=== PATIENT | male | born 1955 | race Caucasian/White ===

== ENCOUNTER 2020-05-18 13:01 | Outpatient (CLI) | payer MEDICAID ==
--- NOTE | 2020-05-18 13:52 | SLEEP CARE CONSULTATION ---
Information from patient questionnaire entered by Francois Larios. I have reviewed and concur with the information entered by Francois Larios. This document represents the service I personally performed and the decisions made by me, Kyung Rodriguez ARNP. History of Present Illness Service Date and Time: 05/18/2020 1301 Reason for Visit: New patient Chief Complaint: reports: Unrefreshed sleep, Snoring, Observed pauses in breathing, Fatigue, Frequent awakenings at night. denies: Insomnia, Excessive daytime sleepiness Date of Onset: 40 years? Usual bedtime: midnight Time it takes to fall asleep: Hours Snores at night: No (Not sure - previously, yes) Observed to quit breathing while asleep: Yes Number of times waking at night: 6-7 Reasons for waking at night: reports: Gasping for air (occasionally), Bathroom. 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 His current complaints are snoring, observed pauses in breathing, unrefreshed sleep and fatigue. About 19 years ago he did have a sleep study and found to have sleep apnea. He was placed on machine but could not tolerate this due to his claustrophobia and other issues. He states it was done at the [facility]. He comes back in to see if he still has sleep apnea and to see if he could use an oral appliance. He has been training himself to hold is tongue to the back of his upper front teeth to keep his palate from falling back to obstruct airway. This has worked well for him but he thinks an oral device would help even more. - Parasomnia Symptoms Ever been unable to move upon waking from sleep: No Walks in sleep: Yes (when very young) Talks in sleep: No Ever acted out dreams in sleep: No Ever felt weak in the knees when startled or emotional: No Bothered by creepy, crawly, restless sensations in legs: No Problems with memory or concentration: No Subjective Initial [place] Sleepiness Scale score: 4 (in 2020) Past Medical History Past Medical History: reports: Diabetes, Depression (occasional, mild depression), GERD (used to, now diet controlled ). 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 Patient is Single and lives in [place]. Have you smoked in the past 12 months: No Alcohol use: No Caffeine use: Yes Caffeine amount and frequency: cup in morn Family History Family history of sleep disordered breathing: Yes Family Hx Sleep Apnea: Father: Snoring, Sibling: Snoring, Sleep apnea - Untreated Allergies and Home Medications Drug allergies reviewed: Yes (NKDA) Home medication list reviewed: Yes Allergy and home medication list: Metformin vitamins melatonin, prn Review of Systems Weight loss over past 5 years: 40 Cardiovascular: denies: high blood pressure, irregular heart rate or pulse Respiratory: reports: chronic cough (dry throat) Gastrointestinal: reports: diarrhea. denies: heartburn Urinary: reports: frequency Neurological: denies: headaches, head trauma Psychiatric: reports: depression (mild), claustrophobia. denies: anxiety, mood disorder Ear/Nose/Throat: reports: nasal congestion, dry mouth/throat (in mornings if sleep with mouth open), wisdom teeth removed. denies: tonsillectomy Immunologic: reports: allergies to food or environment (seasonal allergies, hayfever) Physical Exam Blood Pressure: 123/86 Cuff size: wrist Heart Rate: 95 O2 Saturation: 98 Height: 6 ft Weight: 205 lb Body Mass Index: 27.8 BMI Classification: Overweight Neck circumference: 17 (inches) Nostrils: patent to airflow Turbinates: swollen Septum: midline Mouth and throat: narrow oropharynx Hard palate: arched Uvula visualization: 25% Mallampati Class III Tongue: enlarged in size with teeth arroyo on lateral edges Tonsils: 2+ Heart: regular rate and rhythm Lungs: clear bilaterally Impression and Plan 1. Suspected Obstructive Sleep Apnea-Hypopnea Syndrome, as suggested by a history of loud and irregular snoring, observed cessation of breath while asleep, gasping or choking in sleep, frequent awakening during the night, and unrefreshed sleep. He has a history of previous diagnosis of sleep apnea. I reviewed with patient that to get an oral appliance we will need to verify diagnosis and severity. I recommend proceeding to polysomnography to confirm the diagnosis and to assess severity. The pathophysiology of obstructive sleep apnea-hypopnea syndrome was discussed with the patient and health risks of cardiovascular and cerebrovascular disease if not treated. AAS brochure for obstructive sleep apnea-hypopnea syndrome given and reviewed. Risks of drowsy driving discussed in detail and patient advised to avoid long distance driving and to nail puller at the first sign of drowsiness. Patient agreed to plan. * Schedule polysomnography +- manual CPAP titration study and return in 1-2 weeks after the study to discuss result and initiate therapy. * Avoid long distance driving or driving when feeling sleepy. * Avoid alcohol, sedative and muscle relaxant around bedtime. * Attempt to lose weight. * Review instructions provided by trained office staff on how to prepare for the sleep study. * Return for follow-up after sleep study completed. Counseling Topics: Weight loss health impact Visit Type: In Office Time Spent with Patient (minutes): 32 Provider Statement: I spent 100% of the Face to Face Visit with the patient with greater than 50% spent counseling the patient and coordination of care.
[2020-05-18 13:53] VITALS: BP 123/86
== END 2020-05-18 13:02 | disposition home or self-care (01) ==
LOC: SC 13:01
PROVIDERS: ATTEND Nurse Practitioner Family
DX: R06.81 Apnea, not elsewhere classified (principal); G47.8 Other sleep disorders; R06.83 Snoring; E66.3 Overweight; Z68.27 Body mass index [BMI] 27.0-27.9, adult
CPT/HCPCS: 99203; 99212

== ENCOUNTER 2020-05-31 10:58 | Outpatient (CLI) | payer MEDICAID ==
[2020-05-31 15:39] LABS: BASOPHILS % (AUTO) 0.3 %; EOSINOPHILS % (AUTO) 0.5 %; HGB - HEMOGLOBIN 15.9 g/dL (14.0-18.0); LYMPHOCYTES # (AUTO) 1.2 10^3/uL (1.5-3.5); MEAN CORPUSCULAR HEMOGLOBIN 29.4 pg (27.0-31.0); MEAN CORPUSCULAR HGB CONC 32.8 g/dL (32.0-36.0); MEAN CORPUSCULAR VOLUME 89.6 fL (80.0-94.0); MEAN PLATELET VOLUME 10.1 fL (7.4-11.4); MONOCYTES # (AUTO) 0.5 10^3/uL (0.0-1.0); MONOCYTES % (AUTO) 8.3 %; NEUTROPHILS # (AUTO) 4.3 10^3/uL (1.5-6.6); NEUTROPHILS % (AUTO) 70.6 %; PLT - PLATELET COUNT 241 10^3/uL (130-450); RED BLOOD COUNT 5.41 10^6/uL (4.70-6.10); RED CELL DISTRIBUTION WIDTH 13.9 % (12.0-15.0); WHITE BLOOD COUNT 6.1 x10^3/uL (4.8-10.8)
[2020-05-31 16:39] LABS: CREATININE,URINE 110.8 mg/dL; MICROALBUM/CREATININE RATIO,UR 16.2 ug/mg (<30.0); MICROALBUMIN,URINE 1.8 mg/dL (0-300.0)
[2020-05-31 16:48] LABS: ALBUMIN 4.4 g/dL (3.2-5.5); ALBUMIN/GLOBULIN RATIO 1.6 (1.0-2.2); ALKALINE PHOSPHATASE 59 IU/L (42-121); ALT ALANINE AMINOTRANSFERASE 17 IU/L (10-60); AST ASPARTATE AMINOTRANSFERASE 18 IU/L (10-42); BILIRUBIN,TOTAL 0.9 mg/dL (0.2-1.0); BUN - BLOOD UREA NITROGEN 13 mg/dL (6-20); CALCIUM 9.4 mg/dL (8.5-10.3); CARBON DIOXIDE - CO2 24 mmol/L (21-32); CHLORIDE 104 mmol/L (101-111); CHOL/HDL RATIO 3.6 (<5.0); CHOLESTEROL 205 mg/dL; CREATININE 0.7 mg/dL (0.6-1.2); GLUCOSE 124 mg/dL (70-100); HDL CHOLESTEROL 57 mg/dL; LDL CHOLESTEROL,CALCULATED 134 mg/dL; LDL/HDL RATIO 2.4 (<3.6); SODIUM 137 mmol/L (135-145); TOTAL PROTEIN 7.1 g/dL (6.7-8.2); VLDL CHOLESTEROL 14 mg/dL
[2020-05-31 20:33] LABS: HEMOGLOBIN A1c% 6.2 % (4.27-6.07)
[2020-06-01 11:48] LABS: HEPATITIS C ANTIBODY NON-REACTIVE (NON-REACTIVE)
== END 2020-05-31 10:59 | disposition home or self-care (01) ==
LOC: LAB.S 10:58
PROVIDERS: ATTEND Registered Nurse
DX: Z01.84 Encounter for antibody response examination (principal); E11.9 Type 2 diabetes mellitus without complications; F41.8 Other specified anxiety disorders; I10 Essential (primary) hypertension
CPT/HCPCS: 36415; 80053; 80061; 82043; 82570; 83036; 83721; 84153; 84443; 85025; 86803

== ENCOUNTER 2020-06-11 07:14 | Outpatient (CLI) | payer MEDICAID ==
--- NOTE | 2020-06-11 09:02 | Ultrasound Report ---
PROCEDURE: Retroperitoneal INDICATIONS: HX OF KIDNEY DISEASE TECHNIQUE: Real-time scanning was performed of the retroperitoneal organs, with image documentation. COMPARISON: None. FINDINGS: Kidneys: Kidneys are normal in size. Right kidney measures 12.9 cm long; left kidney measures 12.2 cm long. Right renal cortical thickness is 1.5 cm; left renal cortical thickness is 2.0 cm. Multipl e bilateral renal cortical and parapelvic cysts are noted measuring up to centimeter on the right and 5.6 cm on the left. Bilateral nephrolithiasis also seen measuring up to 1.0 cm on right and up to 0. 5 cm on the left. Mild right hydronephrosis. IMPRESSION: Nonobstructive bilateral renal calculi Numerous bilateral cortical and parapelvic cysts. Mild right hydronephrosis. Reviewed by: Santos Minor MD on 06/11/2020 9:00 AM PST Approved by: Santos Minor MD on 06/11/2020 9:00 AM PST Station ID: [id number]
== END 2020-06-11 07:15 | disposition home or self-care (01) ==
LOC: DI 07:14
PROVIDERS: ATTEND Registered Nurse
DX: N13.2 Hydronephrosis with renal and ureteral calculous obstruction (principal); N28.1 Cyst of kidney, acquired

== ENCOUNTER 2020-06-17 12:14 | Outpatient (CLI) | payer MEDICAID ==
[2020-06-17 15:15] LABS: BILIRUBIN,URINE NEGATIVE (NEGATIVE); GLUCOSE, URINE (UA) NEGATIVE (NEGATIVE); KETONES,URINE (UA) NEGATIVE (NEGATIVE); LEUKOCYTE ESTERASE, URINE NEGATIVE (NEGATIVE); NITRITE,URINE NEGATIVE (NEGATIVE); OCCULT BLOOD,URINE NEGATIVE (NEGATIVE); PROTEIN,URINE NEGATIVE (NEGATIVE); UROBILINOGEN,URINE 0.2 (NORMAL) E.U./dL (NORMAL)
[2020-06-17 15:25] LABS: AMORPHOUS SEDIMENT,UR Rare /LPF; BACTERIA,URINE None Seen /HPF (None Seen); CLARITY,URINE CLEAR (CLEAR); MUCUS,URINE Few Strands; RBC,URINE None Seen /HPF (0-5); SQUAMOUS EPITHELIAL CELL,UR NONE SEEN (<= Few)
[2020-06-17 15:39] LABS: AMYLASE 53 U/L (28-100); LIPASE 38 U/L (22-51)
== END 2020-06-17 12:15 | disposition home or self-care (01) ==
LOC: LAB.S 12:14
PROVIDERS: ATTEND Registered Nurse
DX: R11.0 Nausea (principal); N13.30 Unspecified hydronephrosis; R10.84 Generalized abdominal pain
CPT/HCPCS: 36415; 81001; 82150; 83690; 87086

== ENCOUNTER 2020-07-01 09:24 | Outpatient (CLI) | payer MEDICAID ==
[2020-07-01 15:14] LABS: CREATININE 0.7 mg/dL (0.6-1.2)
== END 2020-07-01 09:25 | disposition home or self-care (01) ==
LOC: LAB.S 09:24
PROVIDERS: ATTEND Registered Nurse
DX: N13.30 Unspecified hydronephrosis (principal)
CPT/HCPCS: 36415; 80048

== ENCOUNTER 2020-12-17 19:41 | Outpatient (CLI) | payer MEDICAID | END 2020-12-17 19:42 | disposition home or self-care (01) | LOC: SC 19:41 | PROVIDERS: ATTEND Nurse Practitioner Family | DX: G47.33 Obstructive sleep apnea (adult) (pediatric) (principal); Z68.27 Body mass index [BMI] 27.0-27.9, adult | CPT/HCPCS: 95810 ==

== ENCOUNTER 2021-01-05 11:24 | Outpatient (CLI) | payer MEDICAID ==
--- NOTE | 2021-01-05 12:13 | SLEEP CARE CONSULTATION ---
Information from patient questionnaire entered by Elvira Sanchez. I have reviewed and concur with the information entered by Elvira Sanchez. This document represents the service I personally performed and the decisions made by , Kyung Rodriguez ARNP. History of Present Illness Service Date and Time: 01/05/[address] Sleepiness Scale score: 4 (in 2020) Current [place] [address] Sleepiness Scale score: 5 Additional HPI information: STEW SPICER returns for follow up and results of the recently performed polysomnography. I explained the pathophysiology behind obstructive sleep apnea. We then spent quite a bit of time discussing different treatment options. For mild obstructive sleep apnea, surgery and oral appliance are alternatives to nasal CPAP therapy but in moderate or severe cases, nasal CPAP is the most effective and reliable treatment. Because apnea is primarily in supine position, then positional management therapy could be effective. Methods discussed such as positioning with pillows, using a T-shirt with tennis balls in the back, and shown commercial products that have a pillow format on back to prevent supine sleep. I reviewed the impact of weight changes on sleep apnea and strongly recommended losing weight. Patient counseled not drink alcohol less than 4 hours before bedtime as it can increase snoring and apnea. Patient was cautioned about risks of drowsy driving until sleepiness symptoms resolve. Sleep Study - Results Type of Sleep Study: Polysomnography Prior sleep studies: Yes Year and Where: Around 1999 at in [place] Polysomnography/Home Sleep Study results: IMPRESSION: The quality of the study is good. The patient had reduced sleep efficiency due to several prolonged awakenings during the night. The sleep architecture was abnormal for sleep fragmentation but the sleep stage distribution was relatively normal.. Respiratory monitoring showed mild obstructive sleep apnea-hypopnea (AHI = 7.6) associated with frequent arousals, oxyhemoglobin desaturation and mild hypoxia (desmond oxygen saturation of 86%). The respiratory events occurred almost exclusively during supine sleep (supine AHI = 84.4; non-supine = 3.24). Snore was light to moderate in intensity. There was no significant periodic leg movement of sleep. Cardiac rhythm was normal sinus rhythm without significant arrhythmia. No abnormal behavior (parasomnia) observed during the night. Allergies and Home Medications Home medication list reviewed: Yes (no changes) Review of Systems Review of systems same as previous: Yes (no changes) Physical Exam Heart Rate: 92 O2 Saturation: 98 Height: 6 ft Weight: 204 lb Body Mass Index: 27.6 BMI Classification: Overweight Impression and Plan 1. Obstructive Sleep Apnea-Hypopnea Syndrome, mild, with lowest oxygen saturation of 86%. Obviously this is the cause of the patients symptoms of unrefreshed sleep, and excessive daytime sleepiness. Positive pressure therapy could benefit depression, diabetes and gastric reflux. Patient has lost some weight since his last study. Patient states he sleeps with his tongue against his teeth to reduce apneas and cannot sleep on his back because he starts choking. He normally sleeps on his sides and dreams a lot at night. He feels weary in the morning from dreaming so much. Since patients apnea is primarily in supine position, patient advised to try positional therapy and agreed with plan. He is also advised to lose weight as this will reduce snoring and apnea. An oral appliance can also be used for snoring or sleep apnea but often is not covered by insurance. The patient would also like to explore using an oral appliance to treat their apnea. A 3 month follow up will be made to see if appliance has reduced symptoms. If so, another polysomnography will be ordered with use of the oral appliance to check efficacy in reducing apnea. Until patient is able to use the oral appliance, positional therapy is advised to avoid supine sleep with pillow positioning or one of the commercial products because apnea is more severe supine. * Positional therapy until able to get oral appliance * Explore insurance coverage for Oral appliance * Continue to lose weight. * Avoid alcohol consumption near bedtime. * Avoid supine sleep. * The patient is again cautioned about driving until sleepiness completely resolves. * Return one month after oral appliance obtained to check effectiveness. Counseling Topics: Weight loss health impact Visit Type: In Office Time Spent with Patient (minutes): 27 Provider Statement: I spent 100% of the Face to Face Visit with the patient with greater than 50% spent counseling the patient and coordination of care.
== END 2021-01-05 11:25 | disposition home or self-care (01) ==
LOC: SC 11:24
PROVIDERS: ATTEND Nurse Practitioner Family
DX: G47.33 Obstructive sleep apnea (adult) (pediatric) (principal)
CPT/HCPCS: 99212; 99213

== ENCOUNTER 2021-07-06 07:58 | Outpatient (CLI) | payer MEDICARE, MEDICAID ==
[2021-07-06 15:08] LABS: BASOPHILS % (AUTO) 0.5 %; EOSINOPHILS # (AUTO) 0.1 10^3/uL (0.0-0.7); EOSINOPHILS % (AUTO) 2.1 %; HCT - HEMATOCRIT 50.2 % (42.0-52.0); HGB - HEMOGLOBIN 16.1 g/dL (14.0-18.0); LYMPHOCYTES # (AUTO) 1.5 10^3/uL (1.5-3.5); LYMPHOCYTES % (AUTO) 26.7 %; MEAN CORPUSCULAR HEMOGLOBIN 29.4 pg (27.0-31.0); MEAN CORPUSCULAR HGB CONC 32.1 g/dL (32.0-36.0); MEAN CORPUSCULAR VOLUME 91.8 fL (80.0-94.0); MEAN PLATELET VOLUME 10.2 fL (7.4-11.4); MONOCYTES # (AUTO) 0.4 10^3/uL (0.0-1.0); MONOCYTES % (AUTO) 7.7 %; NEUTROPHILS # (AUTO) 3.6 10^3/uL (1.5-6.6); NEUTROPHILS % (AUTO) 62.7 %; PLT - PLATELET COUNT 239 10^3/uL (130-450); RED BLOOD COUNT 5.47 10^6/uL (4.70-6.10); RED CELL DISTRIBUTION WIDTH 13.7 % (12.0-15.0); WHITE BLOOD COUNT 5.7 x10^3/uL (4.8-10.8)
[2021-07-06 15:34] LABS: ALBUMIN 4.1 g/dL (3.2-5.5); ALBUMIN/GLOBULIN RATIO 1.4 (1.0-2.2); ALKALINE PHOSPHATASE 58 IU/L (42-121); ALT ALANINE AMINOTRANSFERASE 18 IU/L (10-60); AST ASPARTATE AMINOTRANSFERASE 17 IU/L (10-42); BUN - BLOOD UREA NITROGEN 16 mg/dL (6-20); CALCIUM 8.6 mg/dL (8.5-10.3); CARBON DIOXIDE - CO2 26 mmol/L (21-32); CHLORIDE 102 mmol/L (101-111); CHOL/HDL RATIO 4.1 (<5.0); CHOLESTEROL 205 mg/dL; CREATININE 0.7 mg/dL (0.6-1.2); GFR - MDRD 113 (>89); GLUCOSE 128 mg/dL (70-100); HDL CHOLESTEROL 50 mg/dL; LDL CHOLESTEROL,CALCULATED 138 mg/dL; LDL/HDL RATIO 2.8 (<3.6); POTASSIUM 4.2 mmol/L (3.5-5.0); SODIUM 136 mmol/L (135-145); TRIGLYCERIDES 87 mg/dL; VLDL CHOLESTEROL 17 mg/dL
[2021-07-06 15:35] LABS: THYROID STIMULATING HORMONE 1.29 uIU/mL (0.34-5.60)
== END 2021-07-06 07:59 | disposition home or self-care (01) ==
LOC: LAB.S 07:58
PROVIDERS: ATTEND Registered Nurse
DX: I10 Essential (primary) hypertension (principal); E11.9 Type 2 diabetes mellitus without complications; Z87.448 Personal history of other diseases of urinary system; Z13.220 Encounter for screening for lipoid disorders; Z12.5 Encounter for screening for malignant neoplasm of prostate
CPT/HCPCS: 36415; 80053; 80061; 83721; 84153; 84443; 85025

== ENCOUNTER 2022-03-07 18:31 | Outpatient (CLI) | payer MEDICARE, MEDICAID ==
--- NOTE | 2022-03-08 13:58 | XRAY Report ---
PROCEDURE: Foot 2 View LT INDICATIONS: LEFT FOOT PAIN TECHNIQUE: 2 views of the foot were acquired. COMPARISON: None. FINDINGS: Bones: No fractures or dislocations. Mild left foot osteoarthritic changes are seen with joint spac e narrowing, subchondral sclerosis and marginal osteophyte formation more prominent at talonavicular joint and navicular cuneiform joints. No suspicious bony lesions. Soft tissues: No tibiotalar joint effusion. Achilles tendon appears normal. IMPRESSION: Mild left foot osteoarthritis. No fracture or dislocation. No gross soft tissue abnormalities. Reviewed by: Danilo Young MD on 03/08/2022 1:57 PM PDT Approved by: Danilo Young MD on 03/08/2022 1:57 PM PDT Station ID: [id number]
== END 2022-03-07 18:32 | disposition home or self-care (01) ==
LOC: DI.S 18:31
PROVIDERS: ATTEND Registered Nurse
DX: M19.072 Primary osteoarthritis, left ankle and foot (principal)

== ENCOUNTER 2022-03-16 11:05 | Outpatient (CLI) | payer MEDICARE, MEDICAID | END 2022-03-16 11:06 | disposition short-term general hospital (02) | LOC: EMS 11:05 | DX: S79.912A Unspecified injury of left hip, initial encounter (principal); S29.9XXA Unspecified injury of thorax, initial encounter; S49.92XA Unspecified injury of left shoulder and upper arm, initial encounter; S39.91XA Unspecified injury of abdomen, initial encounter; W11.XXXA Fall on and from ladder, initial encounter; Y92.008 Other place in unspecified non-institutional (private) residence as the place of occurrence of the external cause | CPT/HCPCS: A0425; A0427 ==

== ENCOUNTER 2022-03-30 10:46 | Outpatient (CLI) | payer MEDICARE, MEDICAID | END 2022-03-30 10:47 | disposition critical access hospital (66) | LOC: EMS 10:46 | DX: R10.32 Left lower quadrant pain (principal); R14.0 Abdominal distension (gaseous); R63.8 Other symptoms and signs concerning food and fluid intake; R00.0 Tachycardia, unspecified; Z91.81 History of falling | CPT/HCPCS: A0425; A0429 ==

== ENCOUNTER 2022-03-30 10:52 | Inpatient (IN) | payer MEDICARE, MEDICAID ==
[2022-03-30] MEDS ORDERED: SODIUM CHLORIDE 0.9% 1,000 ML IV STA ×2 (11:34→14:59)
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
[2022-03-30 12:13] LABS: BASOPHILS % (AUTO) 0.2 %; HCT - HEMATOCRIT 35.6 % (42.0-52.0); HGB - HEMOGLOBIN 11.6 g/dL (14.0-18.0); LYMPHOCYTES # (AUTO) 0.2 10^3/uL (1.5-3.5); LYMPHOCYTES % (AUTO) 1.4 %; MEAN CORPUSCULAR HEMOGLOBIN 29.1 pg (27.0-31.0); MEAN CORPUSCULAR HGB CONC 32.6 g/dL (32.0-36.0); MEAN CORPUSCULAR VOLUME 89.4 fL (80.0-94.0); MONOCYTES # (AUTO) 1.2 10^3/uL (0.0-1.0); MONOCYTES % (AUTO) 6.9 %; NEUTROPHILS # (AUTO) 15.7 10^3/uL (1.5-6.6); NEUTROPHILS % (AUTO) 90.1 %; PLT - PLATELET COUNT 385 10^3/uL (130-450); RED BLOOD COUNT 3.98 10^6/uL (4.70-6.10); RED CELL DISTRIBUTION WIDTH 15.9 % (12.0-15.0); WHITE BLOOD COUNT 17.4 x10^3/uL (4.8-10.8)
[2022-03-30 12:18] LABS: INR 1.6 (0.8-1.2); PT - PROTHROMBIN TIME 17.5 secs (9.9-12.6)
[2022-03-30 12:26] LABS: ALBUMIN 2.9 g/dL (3.2-5.5); ALBUMIN/GLOBULIN RATIO 0.8 (1.0-2.2); BILIRUBIN,TOTAL 1.2 mg/dL (0.2-1.0); CALCIUM 8.4 mg/dL (8.5-10.3); POTASSIUM 4.6 mmol/L (3.5-5.0); TOTAL PROTEIN 6.4 g/dL (6.7-8.2)
[2022-03-30 12:51] LABS: BILIRUBIN,URINE NEGATIVE (NEGATIVE); GLUCOSE, URINE (UA) 100 mg/dL (NEGATIVE); KETONES,URINE (UA) NEGATIVE (NEGATIVE); LEUKOCYTE ESTERASE, URINE MODERATE (NEGATIVE); NITRITE,URINE NEGATIVE (NEGATIVE); OCCULT BLOOD,URINE SMALL (NEGATIVE); PROTEIN,URINE 30 mg/dL (NEGATIVE); UROBILINOGEN,URINE 0.2 (NORMAL) E.U./dL (NORMAL)
[2022-03-30 12:54] LABS: CLARITY,URINE SL. CLOUDY (CLEAR)
[2022-03-30 13:05] LABS: BACTERIA,URINE Moderate /HPF (None Seen); SQUAMOUS EPITHELIAL CELL,UR RARE Squamous (<= Few); WBC,URINE >25 /HPF (0-3)
[2022-03-30] MEDS ORDERED: cefTRIAXone 1 GM in SODIUM CHLORIDE 0.9% MINIBAG 100 ML IV STA (13:05)
[2022-03-30] MEDS: SODIUM CHLORIDE 0.9% 1,000 ML IV SCH ×2 (15:00→20:25)
[2022-03-30] MEDS ORDERED: ACETAMINOPHEN 325 MG TABLET PO PRN (15:36)
[2022-03-30] MEDS ORDERED: SODIUM CHLORIDE FLUSH 0.9% 10 ML SYRINGE IVP PRN (15:36)
[2022-03-30] MEDS ORDERED: ONDANSETRON 4 MG/2 ML VIAL IVP PRN (15:36)
--- NOTE | 2022-03-30 15:39 | CONSULTATION NOTE ---
Surgery Consult - Admit Date Hospital Admission Date: 03/30/22 - Consult Date Consult Date: 03/30/22 Requesting Provider: Dr. Calhoun - Chief Complaint Chief Complaint: S/P Polytrauma - Home Meds/Allergies Home Medications: Patient History Medication Instructions Recorded Confirmed Metformin HCl [Metformin ER 1,000 mg PO BID 03/30/22 03/30/22 Osmotic] Allergies/Adverse Reactions: Allergies Allergy/AdvReac Type Severity Reaction Status Date / Time medazepam AdvReac Hallucinati Verified 03/30/22 11:13 ons - Vital Signs Vital Signs: Last Vital Signs Temp 99.1 F 03/30/22 11:19 Pulse 107 H 03/30/22 14:35 Resp 20 03/30/22 14:35 BP 117/83 H 03/30/22 14:35 Pulse Ox 95 03/30/22 14:35 O2 Flow Rate Intake & Output: Intake & Output 03/27/22 03/28/22 03/29/22 03/30/22 23:59 23:59 23:59 23:59 Intake Total 1100 Balance 1100 - Lab Results Result Diagrams: 03/30/22 11:58 03/30/22 11:58 - Consultation Note Consultation Note: Assessment: 1) Urosepsis 2) S/P 40 foot fall with polytrauma listed below - no unresolved issues 3) Sleep apnea 4) Dehydration with electrolyte imbalance 5) Recent pulmonary embolism Recommendation: 1) The patient will be admitted to the Medical hospitalist Service for management of his urosepsis, dehydration, diabetes, anticoagulation, PE, and delirium 2) PT consult should be obtained while he is at this facility regarding post-op mobility after his ORIF right femur 3) General Surgery will follow <><><><><><><><><><> Reason for Consultation Follow-up PolyTrauma Chief Complaint Left flank pain, confusion, shaking chills EULA Mina is a 66 year old male who was brought to our ED from [facility] for fevers, anorexia, fatigue, and shaking chills. He was admitted to [facility] following an 8 day hospitalization at [facility] after falling 40 feet to the ground off of a ladder propped against a tree. He sustained multiple injuries listed below and was discharged to [facility] for recuperation. Past Medical History Poly-Trauma 03/16/2022 Acute blood los anemia Grade 4 left kidney laceration with collecting system injury Left retroperitoneal hematoma Grade 2 splenic laceration Left hemopneumothorax treated with pigtail catheter Left lower lobe pulmonary laceration Fracture left 2,3,4,11 ribs Right intertrochanteric femur fracture, S/P ORIF Left scapula fracture Left iliac wing fracture Left elbow wound - clinically insignificant Delirium L2 Vertebral body fracture Fx C7, T-19, L2-L4 TP fractures Sub-massive PE Blunt cardiac injury DMT2 Sleep apnea Past Surgical History ORIF right femur Left pleural catheter insertion Social History Lives on [facility] Current Medications Apixaban 10 mg PO BID Colace 100 mg PO daily Cholecalciferol 25 mcg daily Insulin LISPRO 100u/ml sliding scale Melatonin 3 mg PO nightly MVI PO daily Ondansetron 4 mg PO Q 8 hrs prn Oxycodone 5 mg PO Q 4-6 hrs prn Miralax daily prn Acetaminophen 1,000 mg PO Q 6 hrs Metformin 500 mg PO BID Allergies Medazolam ROS Pertinent positives Fatigue, fever, chills, weakness All other reviewed systems negative Physical Examination Vital Signs: P 104; BP 166/81; RR 21; O2 sat 97% GENERAL APPEARANCE: Normal development, normal body habitus, normal grooming PSYCHIATRIC: AAO; Comfortable EYES: Pupils equil, round and reactive to light, sclera anicteric EARS, NOSE, MOUTH, THROAT: Hearing normal, Oral mucous membranes moist and without lesions; Teeth in good repair NECK: No crepitus, lymphadenopathy, or thyromegaly LUNGS: Clear to auscultation without wheezing; No use of accessory muscles to breathe CARDIOVASCULAR: Heart-NSR without murmurs; Palpable carotid arteries - no bruits; Aorta, Femoral, Pedal pulses palpable; Peripheral edema absent ABD: Soft, non-distended; No masses; No tympany; Active bowel sounds LYMPHATIC: Neck, Axillae, Groin no palpable adenopathy EXTREMITIES: Right lateral thigh surgical incision with sutures and steri- strips in place. No evidence of infection or drainage SKIN: Ecchymosis about left flank and left lower abdomen BACK: Tender over left scapula Labs UA - WBC > 25; Bacteria Moderate; URE Mod WBC 17.4; Hgb 11.6; Hct 35.6 INR 1.6 Na 129; K 4.6; BUN 21; Cr 1.0 Lac Acid 2.4; TP 6.4; Alb 2.9 Imaging None Vineet Fuentes MD General Surgery Service
--- NOTE | 2022-03-30 15:49 | HISTORY & PHYSICAL EXAMINATION ---
History of Present Illness - Admitted From Admitted From:: ED - History Obtained From History obtained from: ED provider - History of Present Illness HPI Comment/Other: This is a 66 y/o WM with Hx of DM, LARRY not on CPAP, who fell 40 feet off a ladder on 03/16/22 and sustained trauma to multiple organs, was air transferred to [facility] where he was hospitalized for 8 days. He had multiple rib fractures, apical pneumothorax, pulmonary laceration, L kidney bleed, retroperitoneal hematoma, splenic laceration, acute blood loss anemia, R femur fracture, L scapula fracture, L iliac fracture, L2 vertebral fracture, C7, T1-T9 and L2-L4 transverse process fractures, blunt cardiac trauma and pulmonary embolism, started on Eliquis. He needed chest tubes, 2 surgeries to the R femur. He was then ALh for rehab to [facility]. He has been admittedly "eating and drinking poorly" due to poor appetite. He was brought in by ambulance to our ER today because of confusion, weakness and hypotension. W/U today showed he has syst BP 89, HR 140 in sinus tach, WBC 17, L.A. 2.4, and abn U/A with many WBC and many bacteria and few sq cells. He was given 1L of crystalloids and BP has improved to 90-110, HR down to 110-120. He had blood cx and urine cx sent and was started on iv Ceftriaxone. He is being admitted to the Hospitalist service for treating urosepsis. We discussed his CODE BLUE wishes and he wants to be a Full Code. History - Past Medical History Cardiovascular: reports: Other (Blunt trauma to heart, 2 Echos were unremarkable at [facility]) Respiratory: reports: Sleep apnea, Other (Chest tubes for hemo-pneumothorax at [facility]) Neuro: reports: Other (Experienced delerium while at [facility]) Endocrine/Autoimmune: reports: Type 2 diabetes GI: reports: Other (splenic and kidney trauma and retroperitoneal hematoma from that trauma) : reports: Other (Kidney laceration) HEENT: reports: Other (Recent L eye surgery) Psych: reports: Other (Hallucinations while at [facility]) Musculoskeletal: reports: Other (Had abd wall and gluteal hematomas from his trauma) - Past Surgical History Ortho: reports: Hip replacement Other past surgical history: L eye surgery in 2021 - Family & Social History Family History: Mother: , Father: , Sister: Alive and Well, Brother: Alive and Well Family History Comment/Other: Hrmike is estranged from 2 brothers and 1 sister, 1 brother . He has no children. Living arrangement: At home Living Situation: Alone Social History Notes: Alcohol previously 1/wk, none since trauma on 03/16/22. Never smoked cigarettes. Used marijuana when was younger. - Substance History Use: Uses substance without health or social issues: NONE Meds/Allgy - Home Medications Home Medications: Ambulatory Orders Medication Instructions Recorded Confirmed Acetaminophen [Acetaminophen Extra 1,000 mg PO Q6H 03/30/22 03/30/22 Strength] Apixaban [Eliquis] 5 mg PO BID 03/30/22 03/30/22 Bisacodyl Supp [Dulcolax Supp] 10 mg RC PRN PRN 03/30/22 03/30/22 Bismuth Subsalicylate [[place] 30 ml PO PRN PRN 03/30/22 03/30/22 Bismuth] Carboxymethylcellulose Sodium 1 drops EACHEYE PRN PRN 03/30/22 03/30/22 [Refresh Tears] Cholecalciferol [Vitamin D3] 25 mcg PO DAILY 03/30/22 03/30/22 Insulin Lispro [Humalog] 0 units SQ TID 03/30/22 03/30/22 Multivitamin W/Minerals [Theragran 1 each PO DAILY 03/30/22 03/30/22 M] Oxycodone HCl 10 mg PO .Q4 TO 6 H PRN 03/30/22 03/30/22 QUEtiapine [SEROquel] 12.5 mg PO HS PRN 03/30/22 03/30/22 Senna [Senokot] 17.2 mg PO PRN PRN 03/30/22 03/30/22 Sodium Chloride [Saline Nasal 2 spray AILYN Q2H PRN 03/30/22 03/30/22 [place]] metFORMIN [Glucophage] 500 mg PO BIDWM 03/30/22 03/30/22 oxyCODONE [Roxicodone] 5 mg PO .Q4 TO 6H PRN PRN 03/30/22 03/30/22 polyethylene glycoL 3350 [Miralax] 17 gm PO BID 03/30/22 03/30/22 - Allergies Allergies/Adverse Reactions: Allergies Allergy/AdvReac Type Severity Reaction Status Date / Time medazepam AdvReac Hallucinati Verified 03/30/22 11:13 ons Review of Systems - Constitutional Constitutional: reports: Weakness, Poor appetite - Musculoskeletal Musculoskeletal: reports: Muscle pain, Back pain - Psychiatric Psychiatric: reports: Hallucinations (when on narcotics recently) - Hematologic/Lymphatic Hematologic/Lymphatic: reports: Anemia, Bruising - All Other Systems All Other Systems: reports: Reviewed and negative Exam - Vital Signs Reviewed Vital Signs: Yes Vital Signs: Vital Signs x48h Temp Pulse Resp BP Pulse Ox 03/30/22 14:35 107 H 20 117/83 H 95 03/30/22 11:19 37.3 C 143 H 18 106/58 L 96 03/30/22 11:07 37.1 C 140 H 20 93/72 100 - Physical Exam General Appearance: positive: No acute distress, Alert Eyes Bilateral: positive: Normal inspection, EOMI ENT: positive: ENT inspection nml, No signs of dehydration Neck: positive: Nml inspection, Thyroid nml, No JVD Respiratory: positive: No respiratory distress, Breath sounds nml Cardiovascular: positive: Regular rate & rhythm, No murmur Abdomen: positive: Non-tender, No distention Skin: positive: Warm, Dry Extremities: positive: No pedal edema Neurologic/Psychiatric: positive: Oriented x3, Motor nml Sepsis Event Note (H) - Evaluation Current Stage of Sepsis: Sepsis Possible source of Sepsis: positive: Genitourinary - Sepsis Criteria Sepsis Criteria: Recorded Heart Rate greater than 90 bpm, WBC count greater than 12,000 or less than 4000, SBP less than 90 mmHg, Metabolic: lactate > 2 mmol/L Conclusion/Plan - Problem List (1) Sepsis Conclusion/Plan: Will admit as Inpt to ICU, in case iv pressor support is needed for his hypo tension Continue aggressive crystalloid s iv for volume replacement and for low BP. Follow L.A. til improves. Continue iv antibx Await cx results (2) Urinary tract infection Conclusion/Plan: As in #1 Since no imaging was done through the ED, will order CT abdomen pelvis without contrast, to look for any pyelonephritis, hydronephrosis, since he had recent tr auma. Qualifiers: Urinary tract infection type: acute cystitis Hematuria presence: without hematuria Qualified Code(s): N30.00 - Acute cystitis without hematuria (3) Hyponatremia Conclusion/Plan: This is hypovolemic hyponatremia given the presentation. Continue with IV saline. Follow BMP every 8-12 hours. Plan is for 6 mEq for 12-hour correction or less to avoid complications. (4) DM type 2 (diabetes mellitus, type 2) Conclusion/Plan: Will order carb controlled diet, fingerstick checks, SSI coverage, hypoglycemia protocol. Hold any oral hypoglycemics like metformin if he is on these, due to TINA Check A1c with a.m. labs (5) Hx pulmonary embolism Conclusion/Plan: Continue the current dose of Eliquis which is 5 mg twice daily (plan through May 2022) (6) Hx of multiple trauma Conclusion/Plan: Will request Gen Surgery consult regarding outcomes and expected progression of his recent mult traumas, and for further rec. (7) LARRY (obstructive sleep apnea) Conclusion/Plan: As per Hx. He says he did not tolerate "old fashioned CPAP machines" thus doesnot use one, sleeps on his side or stomach - Lab Results Fish Bones: 03/31/22 04:25 03/31/22 04:25 - Other Other Results/Comments: Attestation: The patient is expected to be discharged or transferred to another facility within 96 hours: Yes.
--- NOTE | 2022-03-30 16:35 | CT Report ---
PROCEDURE: ABDOMEN/PELVIS WO INDICATIONS: UTI after multiple trauma TECHNIQUE: Noncontrast 5 mm thick sections acquired from the diaphragms to the symphysis. 5 mm coronal and sagi ttal reformats were then performed. For radiation dose reduction, the following was used: automated exposure control, adjustment of mA and/or kV according to patient size. COMPARISON: None. FINDINGS: Image quality: Excellent. ABDOMEN: Lung bases: Lung bases are clear. Heart size is normal. There is mild calcification of the coronar y vasculature. Solid organs: Liver and spleen are normal in size. Gallbladder is within normal limits Pancreas is normal in contours. No adrenal nodules. Kidneys are normal in size. There is a 7 mm calculus withi n the inferior pole right kidney. There is mild right hydronephrosis. Mild diffuse right ureteral dil atation is present. There are multiple nonobstructing calculi within the left interpolar and inferior pole kidney, largest of which is in the inferior pole measuring roughly 14 mm diameter. There is mil d left hydronephrosis. Peritoneum and bowel: Unenhanced bowel loops demonstrate normal wall thickness and caliber. Normal a ppendix. No free fluid or air. Nodes and vessels: No retroperitoneal or mesenteric adenopathy by size criteria. Aorta and inferior vena cava are normal in caliber. Miscellaneous: No ventral hernias. PELVIS: Genitourinary: Bladder wall thickness is normal. Miscellaneous: No inguinal hernias or adenopathy. Bones: ORIF of the right hip has been performed. Moderately displaced comminuted fracture of the lef t anterior iliac wing. Mildly displaced fracture of the left medial 11th rib. No suspicious bony lesi ons. No vertebral body compression fractures. IMPRESSION: 1. Nonobstructing bilateral renal calculi. 2. Bilateral hydronephrosis without evidence of calcific obstruction. 3. Normal appendix. 4. Left 11th rib fracture. 5. Left iliac wing fracture. Reviewed by: Marivel Beach MD on 03/30/2022 4:34 PM PDT Approved by: Marivel Beach MD on 03/30/2022 4:34 PM PDT Station ID: [id number]
[2022-03-30] MEDS: SODIUM CHLORIDE FLUSH 0.9% 10 ML SYRINGE IVP SCH (17:28)
[2022-03-30] MEDS ORDERED: oxyCODONE 5 MG TABLET PO PRN ×2 (17:54→19:26)
[2022-03-30] MEDS ORDERED: SENNA 8.6 MG TABLET PO PRN (17:54)
[2022-03-30] MEDS ORDERED: BISACODYL 10 MG SUPP PR PRN (17:54)
[2022-03-30] MEDS ORDERED: BISMUTH SUBSALICYLATE 262 MG/15 ML PO PRN (17:54)
[2022-03-30] MEDS: ACETAMINOPHEN 500 MG TABLET PO SCH ×2 (18:28→23:38)
[2022-03-30] MEDS: APIXABAN 5 MG TABLET PO SCH (20:24)
[2022-03-30] MEDS: FAMOTIDINE 20 MG TABLET PO SCH (20:24)
[2022-03-30] MEDS: polyethylene glycoL 3350 17 GM PACKET PO SCH (20:24)
[2022-03-30] MEDS: INSULIN LISPRO 300 UNIT/3 ML PEN SUBQ SCH (20:36)
[2022-03-30] MEDS: QUEtiapine 25 MG TABLET PO PRN (21:43)
[2022-03-31] MEDS: SODIUM CHLORIDE FLUSH 0.9% 10 ML SYRINGE IVP SCH ×3 (03:54→17:12)
[2022-03-31 05:27] LABS: BASOPHILS % (AUTO) 0.4 %; EOSINOPHILS % (AUTO) 0.4 %; HCT - HEMATOCRIT 33.8 % (42.0-52.0); HGB - HEMOGLOBIN 10.5 g/dL (14.0-18.0); LYMPHOCYTES # (AUTO) 0.7 10^3/uL (1.5-3.5); LYMPHOCYTES % (AUTO) 7.7 %; MEAN CORPUSCULAR HEMOGLOBIN 29.2 pg (27.0-31.0); MEAN CORPUSCULAR HGB CONC 31.1 g/dL (32.0-36.0); MEAN CORPUSCULAR VOLUME 94.2 fL (80.0-94.0); MEAN PLATELET VOLUME 10.2 fL (7.4-11.4); MONOCYTES % (AUTO) 10.4 %; NEUTROPHILS # (AUTO) 7.4 10^3/uL (1.5-6.6); NEUTROPHILS % (AUTO) 79.5 %; PLT - PLATELET COUNT 346 10^3/uL (130-450); RED BLOOD COUNT 3.59 10^6/uL (4.70-6.10); RED CELL DISTRIBUTION WIDTH 16.2 % (12.0-15.0); WHITE BLOOD COUNT 9.3 x10^3/uL (4.8-10.8)
[2022-03-31] MEDS: ACETAMINOPHEN 500 MG TABLET PO SCH ×4 (05:32→23:59)
[2022-03-31 05:33] LABS: CALCIUM, IONIZED 1.05 mmol/L (1.15-1.33); VBG PH 7.399 (7.31-7.41)
[2022-03-31] MEDS: SODIUM CHLORIDE 0.9% 1,000 ML IV SCH ×2 (05:35→15:55)
[2022-03-31 05:43] LABS: CREATININE 0.9 mg/dL (0.6-1.2); MAGNESIUM 2.2 mg/dL (1.7-2.8); PHOSPHORUS 2.9 mg/dL (2.5-4.6); POTASSIUM 3.9 mmol/L (3.5-5.0)
[2022-03-31 08:33] LABS: ALBUMIN 2.7 g/dL (3.2-5.5); BILIRUBIN,DIRECT 0.2 mg/dL (0.1-0.5); BILIRUBIN,TOTAL 0.8 mg/dL (0.2-1.0)
[2022-03-31] MEDS: INSULIN LISPRO 300 UNIT/3 ML PEN SUBQ SCH ×4 (09:00→21:06)
[2022-03-31] MEDS ORDERED: POTASSIUM CHLORIDE 20 MEQ TABLET PO ONE (09:00)
[2022-03-31] MEDS: CALCIUM CARBONATE CHEW 500 MG TABLET PO SCH ×2 (09:02→11:58)
[2022-03-31] MEDS: APIXABAN 5 MG TABLET PO SCH ×2 (09:02→21:05)
[2022-03-31] MEDS: CHOLECALCIFEROL 25 MCG TABLET PO SCH (09:03)
[2022-03-31] MEDS: polyethylene glycoL 3350 17 GM PACKET PO SCH ×2 (09:03→21:07)
[2022-03-31] MEDS: FAMOTIDINE 20 MG TABLET PO SCH ×2 (09:03→21:05)
[2022-03-31] MEDS: CARBOXYMETHYLCELLULOSE OPHTH DROPS EACHEYE PRN ×2 (09:04→21:12)
[2022-03-31] MEDS: SODIUM CHLORIDE 0.65% NASAL SPRAY NAS PRN ×2 (09:05→21:08)
[2022-03-31] MEDS: BENZOCAINE/MENTHOL LOZENGE MM PRN (09:07)
--- NOTE | 2022-03-31 09:35 | PROVIDER PROGRESS NOTE ---
Progress Note S: Leopoldo feels much better. His appetite has returned and he is less fatigued. O: VSS, afeb; Abdomen is soft; No increase in left flank ecchymosis; Lungs clear Labs: Na improved. WBC now normal Assessment: 1) Urosepsis - resolving with IV antibiotics 2) S/P Polytrauma - no new issues have developed Recommendation: 1) Continue antimicrobial therapy for urosepsis 2) PT to see today for mobility 3) I suspect he will return to the SNF for continued rehab once the urosepsis has resolved. Vineet Fuentes MD General Surgery Service
[2022-03-31] MEDS ORDERED: cefTRIAXone 1 GM in SODIUM CHLORIDE 0.9% MINIBAG 100 ML IV SCH (11:00)
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
[2022-03-31] MEDS: MULTIVITAMIN W/MINERALS TABLET PO SCH (11:58)
[2022-03-31] MEDS ORDERED: oxyCODONE 5 MG TABLET PO PRN (12:08)
--- NOTE | 2022-03-31 12:15 | PHARMACY PROGRESS NOTE ---
- Best Possible Medication History Admit Date and Time: 03/30/22 1536 Processed by: Pharmacy Medication History completed: Yes Patient Interview: Pt unable to participate Secondary Source(s): Insurance records, Facility MAR as ONLY source ([facility]ONE WITH MAR FROM [facility].) As the person ultimately responsible for medication therapy, providers are able to order a medication from an existing home medication list in [facility] via the "Reconcile Routine" prior to Confirmation of that medication by administrative support coordinator. Such practice is discouraged except when the physician, in their clinical judgment, deems that a medical need exists for a medication without regard to previous use.
[2022-03-31 12:56] LABS: ESTIMATED AVERAGE GLUCOSE 134 mg/dL (70-100); HEMOGLOBIN A1c% 6.3 % (4.27-6.07)
[2022-03-31] MEDS: PHENAZOPYRIDINE 100 MG TABLET PO SCH ×2 (13:54→22:04)
[2022-03-31 14:09] LABS: CALCIUM, IONIZED 1.08 mmol/L (1.15-1.33); VBG PH 7.472 (7.31-7.41)
--- NOTE | 2022-03-31 15:14 | XRAY Report ---
PROCEDURE: Chest 1 View X-Ray INDICATIONS: Tachypnea, tachycardia, sepsis TECHNIQUE: One view of the chest was acquired. COMPARISON: None. FINDINGS: Surgical changes and devices: None. Lungs and pleura: No pleural effusions or pneumothorax. Lungs are clear. Mediastinum: Mediastinal contours appear normal. Heart size is normal. Bones and chest wall: No suspicious bony lesions. Overlying soft tissues appear unremarkable. IMPRESSION: No pneumonia found, normal heart size. No sign of CHF or pneumonitis. Reviewed by: Ruddy Lee MD on 03/31/2022 3:12 PM PDT Approved by: Ruddy Lee MD on 03/31/2022 3:12 PM PDT Station ID: [id number]
[2022-03-31] MEDS: oxyCODONE 5 MG TABLET PO PRN ×2 (17:53→22:04)
[2022-03-31] MEDS: QUEtiapine 25 MG TABLET PO PRN (23:59)
[2022-04-01] MEDS: SODIUM CHLORIDE FLUSH 0.9% 10 ML SYRINGE IVP SCH ×3 (03:55→17:18)
[2022-04-01] MEDS: oxyCODONE 5 MG TABLET PO PRN ×3 (04:56→19:47)
[2022-04-01] MEDS: SODIUM CHLORIDE 0.9% 1,000 ML IV SCH ×4 (04:56→21:27)
[2022-04-01 05:35] LABS: CALCIUM, IONIZED 1.06 mmol/L (1.15-1.33); VBG PH 7.472 (7.31-7.41)
[2022-04-01 05:38] LABS: BASOPHILS % (AUTO) 0.4 %; EOSINOPHILS % (AUTO) 0.3 %; HGB - HEMOGLOBIN 10.6 g/dL (14.0-18.0); LYMPHOCYTES # (AUTO) 0.4 10^3/uL (1.5-3.5); LYMPHOCYTES % (AUTO) 3.6 %; MEAN CORPUSCULAR HEMOGLOBIN 29.3 pg (27.0-31.0); MEAN CORPUSCULAR HGB CONC 32.1 g/dL (32.0-36.0); MEAN CORPUSCULAR VOLUME 91.2 fL (80.0-94.0); MEAN PLATELET VOLUME 9.2 fL (7.4-11.4); MONOCYTES # (AUTO) 0.9 10^3/uL (0.0-1.0); MONOCYTES % (AUTO) 7.9 %; NEUTROPHILS # (AUTO) 9.4 10^3/uL (1.5-6.6); NEUTROPHILS % (AUTO) 86.5 %; PLT - PLATELET COUNT 355 10^3/uL (130-450); RED BLOOD COUNT 3.62 10^6/uL (4.70-6.10); RED CELL DISTRIBUTION WIDTH 15.9 % (12.0-15.0); WHITE BLOOD COUNT 10.8 x10^3/uL (4.8-10.8)
[2022-04-01 05:41] LABS: CALCIUM 7.6 mg/dL (8.5-10.3); CREATININE 0.9 mg/dL (0.6-1.2); POTASSIUM 4.4 mmol/L (3.5-5.0)
[2022-04-01] MEDS: PHENAZOPYRIDINE 100 MG TABLET PO SCH ×3 (05:46→21:25)
[2022-04-01] MEDS: ACETAMINOPHEN 500 MG TABLET PO SCH ×3 (05:46→18:15)
[2022-04-01 05:56] LABS: MAGNESIUM 1.9 mg/dL (1.7-2.8); PHOSPHORUS 2.6 mg/dL (2.5-4.6)
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
[2022-04-01 08:10] LABS: THYROID STIMULATING HORMONE 1.64 uIU/mL (0.34-5.60)
[2022-04-01 08:12] LABS: FREE T4 (FREE THYROXINE) 1.1 ng/dL (0.58-1.64)
[2022-04-01] MEDS: CHOLECALCIFEROL 25 MCG TABLET PO SCH (08:28)
[2022-04-01] MEDS: MULTIVITAMIN W/MINERALS TABLET PO SCH (08:28)
[2022-04-01] MEDS: polyethylene glycoL 3350 17 GM PACKET PO SCH ×2 (08:28→21:25)
[2022-04-01] MEDS: APIXABAN 5 MG TABLET PO SCH ×2 (08:28→21:25)
[2022-04-01] MEDS: FAMOTIDINE 20 MG TABLET PO SCH ×2 (08:28→21:25)
[2022-04-01] MEDS: INSULIN LISPRO 300 UNIT/3 ML PEN SUBQ SCH ×4 (08:30→21:26)
[2022-04-01] MEDS: CALCIUM CARBONATE CHEW 500 MG TABLET PO SCH ×2 (08:36→12:25)
[2022-04-01] MEDS: MEROPENEM 1 GM in SODIUM CHLORIDE 0.9% MINIBAG 100 ML IV SCH ×2 (08:37→17:16)
--- NOTE | 2022-04-01 11:21 | PROVIDER PROGRESS NOTE ---
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 The Echo showed: Normal left atrial and right atrial sizes. Normal aortic root diameter with mural calcific atherosclerosis Low-normal left ventricular size with mild LVH. Normal LV contractility, ejection fraction 60 to 65%. Diastolic dysfunction could not be determined. Right ventricle mildly dilated. Normal right ventricular function. Valves appear structurally normal. Doppler of the valves shows trace-mild mitral and tricuspid regurgitation. Physiologic apical pericardial effusion present, no evidence of tamponade.
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
[2022-04-01] MEDS: BENZOCAINE/MENTHOL LOZENGE MM PRN ×2 (18:19→21:25)
[2022-04-02] MEDS: ACETAMINOPHEN 500 MG TABLET PO SCH ×4 (00:04→18:02)
[2022-04-02] MEDS: MEROPENEM 1 GM in SODIUM CHLORIDE 0.9% MINIBAG 100 ML IV SCH ×3 (00:05→16:54)
[2022-04-02] MEDS: oxyCODONE 5 MG TABLET PO PRN ×5 (00:05→22:47)
[2022-04-02] MEDS: SODIUM CHLORIDE FLUSH 0.9% 10 ML SYRINGE IVP SCH ×3 (00:12→16:55)
[2022-04-02] MEDS: SODIUM CHLORIDE 0.9% 1,000 ML IV SCH ×2 (03:19→10:24)
[2022-04-02] MEDS: PHENAZOPYRIDINE 100 MG TABLET PO SCH ×3 (05:05→21:23)
[2022-04-02 06:23] LABS: BASOPHILS % (AUTO) 0.3 %; EOSINOPHILS # (AUTO) 0.2 10^3/uL (0.0-0.7); EOSINOPHILS % (AUTO) 1.6 %; HCT - HEMATOCRIT 30.4 % (42.0-52.0); HGB - HEMOGLOBIN 9.6 g/dL (14.0-18.0); LYMPHOCYTES # (AUTO) 0.8 10^3/uL (1.5-3.5); LYMPHOCYTES % (AUTO) 7.4 %; MEAN CORPUSCULAR HEMOGLOBIN 28.8 pg (27.0-31.0); MEAN CORPUSCULAR HGB CONC 31.6 g/dL (32.0-36.0); MEAN CORPUSCULAR VOLUME 91.3 fL (80.0-94.0); MEAN PLATELET VOLUME 9.6 fL (7.4-11.4); MONOCYTES # (AUTO) 0.9 10^3/uL (0.0-1.0); MONOCYTES % (AUTO) 8.7 %; NEUTROPHILS # (AUTO) 8.3 10^3/uL (1.5-6.6); NEUTROPHILS % (AUTO) 80.9 %; PLT - PLATELET COUNT 348 10^3/uL (130-450); RED BLOOD COUNT 3.33 10^6/uL (4.70-6.10); RED CELL DISTRIBUTION WIDTH 15.9 % (12.0-15.0); WHITE BLOOD COUNT 10.2 x10^3/uL (4.8-10.8)
[2022-04-02 06:24] LABS: CALCIUM, IONIZED 1.08 mmol/L (1.15-1.33); VBG PH 7.448 (7.31-7.41)
[2022-04-02 06:34] LABS: CREATININE 1.2 mg/dL (0.6-1.2); MAGNESIUM 1.9 mg/dL (1.7-2.8); PHOSPHORUS 3.3 mg/dL (2.5-4.6); POTASSIUM 4.2 mmol/L (3.5-5.0)
[2022-04-02] MEDS: INSULIN LISPRO 300 UNIT/3 ML PEN SUBQ SCH ×4 (07:58→21:23)
[2022-04-02] MEDS: APIXABAN 5 MG TABLET PO SCH ×2 (07:59→21:23)
[2022-04-02] MEDS: CHOLECALCIFEROL 25 MCG TABLET PO SCH (08:00)
[2022-04-02] MEDS: FAMOTIDINE 20 MG TABLET PO SCH ×2 (08:00→21:23)
[2022-04-02] MEDS: MULTIVITAMIN W/MINERALS TABLET PO SCH (08:00)
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
[2022-04-02] MEDS: polyethylene glycoL 3350 17 GM PACKET PO SCH ×2 (09:18→20:47)
[2022-04-02] MEDS ORDERED: SODIUM CHLORIDE 0.9% 1,000 ML IV SCH (14:19)
[2022-04-03] MEDS: ACETAMINOPHEN 500 MG TABLET PO SCH ×4 (00:03→17:07)
[2022-04-03] MEDS: SODIUM CHLORIDE FLUSH 0.9% 10 ML SYRINGE IVP SCH ×3 (00:04→17:08)
[2022-04-03] MEDS: MEROPENEM 1 GM in SODIUM CHLORIDE 0.9% MINIBAG 100 ML IV SCH ×3 (00:07→17:08)
[2022-04-03] MEDS: PHENAZOPYRIDINE 100 MG TABLET PO SCH ×4 (07:02→21:09)
[2022-04-03] MEDS: oxyCODONE 5 MG TABLET PO PRN ×3 (07:21→21:09)
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
[2022-04-03] MEDS: INSULIN LISPRO 300 UNIT/3 ML PEN SUBQ SCH ×4 (08:04→21:12)
[2022-04-03] MEDS: APIXABAN 5 MG TABLET PO SCH ×2 (08:05→21:10)
[2022-04-03] MEDS: FAMOTIDINE 20 MG TABLET PO SCH ×2 (08:05→21:09)
[2022-04-03] MEDS: CHOLECALCIFEROL 25 MCG TABLET PO SCH (08:05)
[2022-04-03] MEDS: MULTIVITAMIN W/MINERALS TABLET PO SCH (08:05)
[2022-04-03] MEDS: polyethylene glycoL 3350 17 GM PACKET PO SCH ×2 (08:07→21:10)
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
[2022-04-03 09:15] LABS: BASOPHILS % (AUTO) 0.2 %; EOSINOPHILS % (AUTO) 0.5 %; HCT - HEMATOCRIT 32.3 % (42.0-52.0); HGB - HEMOGLOBIN 10.2 g/dL (14.0-18.0); LYMPHOCYTES # (AUTO) 0.9 10^3/uL (1.5-3.5); LYMPHOCYTES % (AUTO) 11.7 %; MEAN CORPUSCULAR HEMOGLOBIN 28.7 pg (27.0-31.0); MEAN CORPUSCULAR HGB CONC 31.6 g/dL (32.0-36.0); MEAN CORPUSCULAR VOLUME 90.7 fL (80.0-94.0); MEAN PLATELET VOLUME 9.5 fL (7.4-11.4); MONOCYTES # (AUTO) 0.5 10^3/uL (0.0-1.0); MONOCYTES % (AUTO) 6.3 %; NEUTROPHILS # (AUTO) 6.4 10^3/uL (1.5-6.6); NEUTROPHILS % (AUTO) 79.8 %; PLT - PLATELET COUNT 433 10^3/uL (130-450); RED BLOOD COUNT 3.56 10^6/uL (4.70-6.10); RED CELL DISTRIBUTION WIDTH 15.9 % (12.0-15.0); WHITE BLOOD COUNT 8.1 x10^3/uL (4.8-10.8)
[2022-04-03 09:33] LABS: CALCIUM 8.3 mg/dL (8.5-10.3); CREATININE 0.9 mg/dL (0.6-1.2); PHOSPHORUS 2.4 mg/dL (2.5-4.6); POTASSIUM 4.3 mmol/L (3.5-5.0)
[2022-04-03] MEDS: PROPRANOLOL ER 60 MG CAPSULE PO SCH (13:58)
[2022-04-03] MEDS: metFORMIN 500 MG TABLET PO SCH (17:07)
[2022-04-04] MEDS: MEROPENEM 1 GM in SODIUM CHLORIDE 0.9% MINIBAG 100 ML IV SCH ×3 (00:30→17:33)
[2022-04-04] MEDS: SODIUM CHLORIDE FLUSH 0.9% 10 ML SYRINGE IVP SCH ×3 (00:31→17:33)
[2022-04-04] MEDS: ACETAMINOPHEN 500 MG TABLET PO SCH ×4 (00:36→17:34)
[2022-04-04 05:26] LABS: BASOPHILS # (AUTO) 0.1 10^3/uL (0.0-0.1); BASOPHILS % (AUTO) 0.6 %; EOSINOPHILS # (AUTO) 0.3 10^3/uL (0.0-0.7); EOSINOPHILS % (AUTO) 3.8 %; HCT - HEMATOCRIT 34.8 % (42.0-52.0); HGB - HEMOGLOBIN 10.9 g/dL (14.0-18.0); LYMPHOCYTES # (AUTO) 1.8 10^3/uL (1.5-3.5); LYMPHOCYTES % (AUTO) 20.6 %; MEAN CORPUSCULAR HGB CONC 31.3 g/dL (32.0-36.0); MEAN CORPUSCULAR VOLUME 92.6 fL (80.0-94.0); MEAN PLATELET VOLUME 9.3 fL (7.4-11.4); MONOCYTES # (AUTO) 0.7 10^3/uL (0.0-1.0); MONOCYTES % (AUTO) 7.8 %; NEUTROPHILS # (AUTO) 5.7 10^3/uL (1.5-6.6); NEUTROPHILS % (AUTO) 65.1 %; PLT - PLATELET COUNT 483 10^3/uL (130-450); RED BLOOD COUNT 3.76 10^6/uL (4.70-6.10); RED CELL DISTRIBUTION WIDTH 16.1 % (12.0-15.0); WHITE BLOOD COUNT 8.7 x10^3/uL (4.8-10.8)
[2022-04-04 05:43] LABS: ALBUMIN 2.7 g/dL (3.2-5.5); ALBUMIN/GLOBULIN RATIO 0.8 (1.0-2.2); BILIRUBIN,TOTAL 0.7 mg/dL (0.2-1.0); CALCIUM 8.5 mg/dL (8.5-10.3); CREATININE 0.9 mg/dL (0.6-1.2); MAGNESIUM 2.5 mg/dL (1.7-2.8); PHOSPHORUS 2.3 mg/dL (2.5-4.6); POTASSIUM 4.6 mmol/L (3.5-5.0); TOTAL PROTEIN 6.3 g/dL (6.7-8.2)
[2022-04-04] MEDS: PHENAZOPYRIDINE 100 MG TABLET PO SCH ×2 (06:16→14:01)
[2022-04-04] MEDS ORDERED: MULTIVITAMIN W/MINERALS TABLET PO SCH (09:00)
[2022-04-04] MEDS: PROPRANOLOL ER 60 MG CAPSULE PO SCH (09:07)
[2022-04-04] MEDS: oxyCODONE 5 MG TABLET PO PRN ×2 (09:07→15:25)
[2022-04-04] MEDS: APIXABAN 5 MG TABLET PO SCH ×2 (09:08→21:36)
[2022-04-04] MEDS: metFORMIN 500 MG TABLET PO SCH ×2 (09:08→17:34)
[2022-04-04] MEDS: CHOLECALCIFEROL 25 MCG TABLET PO SCH (09:08)
[2022-04-04] MEDS: FAMOTIDINE 20 MG TABLET PO SCH ×2 (09:08→21:37)
[2022-04-04] MEDS: MULTIVITAMIN W/MINERALS TABLET PO SCH (09:08)
[2022-04-04] MEDS: INSULIN LISPRO 300 UNIT/3 ML PEN SUBQ SCH ×4 (09:08→21:37)
[2022-04-04] MEDS: polyethylene glycoL 3350 17 GM PACKET PO SCH ×2 (09:09→21:38)
[2022-04-04] MEDS: TAMSULOSIN 0.4 MG CAPSULE PO SCH (10:41)
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
[2022-04-04] MEDS ORDERED: LOPERAMIDE 2 MG CAPSULE PO PRN (14:35)
[2022-04-05] MEDS: ACETAMINOPHEN 500 MG TABLET PO SCH ×2 (00:40→06:26)
[2022-04-05] MEDS: MEROPENEM 1 GM in SODIUM CHLORIDE 0.9% MINIBAG 100 ML IV SCH ×2 (00:41→09:33)
[2022-04-05] MEDS: SODIUM CHLORIDE FLUSH 0.9% 10 ML SYRINGE IVP SCH ×2 (01:11→09:34)
[2022-04-05 05:14] LABS: BASOPHILS # (AUTO) 0.1 10^3/uL (0.0-0.1); BASOPHILS % (AUTO) 0.5 %; EOSINOPHILS # (AUTO) 0.3 10^3/uL (0.0-0.7); EOSINOPHILS % (AUTO) 3.2 %; HCT - HEMATOCRIT 33.7 % (42.0-52.0); HGB - HEMOGLOBIN 10.6 g/dL (14.0-18.0); LYMPHOCYTES # (AUTO) 2.1 10^3/uL (1.5-3.5); LYMPHOCYTES % (AUTO) 20.5 %; MEAN CORPUSCULAR HEMOGLOBIN 28.8 pg (27.0-31.0); MEAN CORPUSCULAR HGB CONC 31.5 g/dL (32.0-36.0); MEAN CORPUSCULAR VOLUME 91.6 fL (80.0-94.0); MEAN PLATELET VOLUME 9.2 fL (7.4-11.4); MONOCYTES # (AUTO) 0.7 10^3/uL (0.0-1.0); MONOCYTES % (AUTO) 7.3 %; NEUTROPHILS # (AUTO) 6.6 10^3/uL (1.5-6.6); NEUTROPHILS % (AUTO) 64.6 %; PLT - PLATELET COUNT 504 10^3/uL (130-450); RED BLOOD COUNT 3.68 10^6/uL (4.70-6.10); WHITE BLOOD COUNT 10.2 x10^3/uL (4.8-10.8)
[2022-04-05 05:24] LABS: CALCIUM 8.3 mg/dL (8.5-10.3); CREATININE 0.9 mg/dL (0.6-1.2); POTASSIUM 4.5 mmol/L (3.5-5.0)
[2022-04-05 07:41] VITALS: BP 121/80
--- NOTE | 2022-04-05 09:19 | Discharge Plan ---
Discharge Plan Problem Reviewed?: Yes Disposition: 61 Swing Bed DC/Xfer Condition: Stable Diet: Regular Activity Restrictions: Wt Bearing as Tolerated Shower Restrictions: No Driving Restrictions: No Instruction Topics: ESBL Infec No Smoking: If you smoke, Please STOP! Call for help. Follow-up with: Rosario Marrero ARNP [Primary Care Provider] -
[2022-04-05] MEDS: APIXABAN 5 MG TABLET PO SCH (09:35)
[2022-04-05] MEDS: MULTIVITAMIN W/MINERALS TABLET PO SCH (09:35)
[2022-04-05] MEDS: PROPRANOLOL ER 60 MG CAPSULE PO SCH (09:35)
[2022-04-05] MEDS: metFORMIN 500 MG TABLET PO SCH (09:35)
[2022-04-05] MEDS: TAMSULOSIN 0.4 MG CAPSULE PO SCH (09:35)
[2022-04-05] MEDS: polyethylene glycoL 3350 17 GM PACKET PO SCH (09:35)
[2022-04-05] MEDS: CHOLECALCIFEROL 25 MCG TABLET PO SCH (09:35)
[2022-04-05] MEDS: INSULIN LISPRO 300 UNIT/3 ML PEN SUBQ SCH (09:37)
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
== END 2022-04-05 11:34 | disposition swing bed (61) | DRG 872 ==
LOC: EDUNIT# → ED 10:52 → ICU 15:36 → MS2 04-01 07:37
PROVIDERS: ADMIT Internal Medicine; ATTEND Specialist
DX: A41.51 Sepsis due to Escherichia coli [E. coli] (principal); N30.00 Acute cystitis without hematuria; N13.30 Unspecified hydronephrosis; K52.1 Toxic gastroenteritis and colitis; S72.001D Fracture of unspecified part of neck of right femur, subsequent encounter for closed fracture with routine healing; E87.1 Hypo-osmolality and hyponatremia; N17.9 Acute kidney failure, unspecified; T36.95XA Adverse effect of unspecified systemic antibiotic, initial encounter; Y92.230 Patient room in hospital as the place of occurrence of the external cause; S12.690D Other displaced fracture of seventh cervical vertebra, subsequent encounter for fracture with routine healing; E86.0 Dehydration; S22.42XD Multiple fractures of ribs, left side, subsequent encounter for fracture with routine healing; S42.102D Fracture of unspecified part of scapula, left shoulder, subsequent encounter for fracture with routine healing; G93.49 Other encephalopathy; Z20.822 Contact with and (suspected) exposure to COVID-19; S32.392D Other fracture of left ilium, subsequent encounter for fracture with routine healing; S12.600D Unspecified displaced fracture of seventh cervical vertebra, subsequent encounter for fracture with routine healing; S22.019D Unspecified fracture of first thoracic vertebra, subsequent encounter for fracture with routine healing; S22.079D Unspecified fracture of T9-T10 vertebra, subsequent encounter for fracture with routine healing; S32.029D Unspecified fracture of second lumbar vertebra, subsequent encounter for fracture with routine healing; S32.049D Unspecified fracture of fourth lumbar vertebra, subsequent encounter for fracture with routine healing; S72.101D Unspecified trochanteric fracture of right femur, subsequent encounter for closed fracture with routine healing; W11.XXXD Fall on and from ladder, subsequent encounter; E11.9 Type 2 diabetes mellitus without complications; G47.00 Insomnia, unspecified; R00.0 Tachycardia, unspecified; G47.33 Obstructive sleep apnea (adult) (pediatric); Z86.711 Personal history of pulmonary embolism; Z79.01 Long term (current) use of anticoagulants; R94.31 Abnormal electrocardiogram [ECG] [EKG]; R63.0 Anorexia; Z68.27 Body mass index [BMI] 27.0-27.9, adult; R53.1 Weakness; I95.9 Hypotension, unspecified; S30.1XXD Contusion of abdominal wall, subsequent encounter; S30.0XXD Contusion of lower back and pelvis, subsequent encounter; E87.8 Other disorders of electrolyte and fluid balance, not elsewhere classified; R41.0 Disorientation, unspecified; E86.1 Hypovolemia; Z79.84 Long term (current) use of oral hypoglycemic drugs; F41.9 Anxiety disorder, unspecified
CPT/HCPCS: 36415; 71045; 72170; 73010; 73552; 74176; 80048; 80053; 80076; 81001; 82330; 83036; 83605; 83690; 83735; 84100; 84132; 84439; 84443; 84484; 85025; 85610; 85730; 86850; 86900; 86901; 87040; 87086; 87150; 87181; 87493; 87635; 93005; 93306; 96361; 96365; 97110; 97162; 97167; 97530; 97535; 99284; 99285; A9270; J2185; 81003

== ENCOUNTER 2022-04-05 09:03 | Inpatient (IN) | payer MEDICARE, MEDICAID ==
[2022-04-05] MEDS ORDERED: LOPERAMIDE 2 MG CAPSULE PO PRN (12:22)
[2022-04-05] MEDS: oxyCODONE 5 MG TABLET PO PRN (14:12)
[2022-04-05] MEDS: MEROPENEM 1 GM in SODIUM CHLORIDE 0.9% MINIBAG 100 ML IV SCH (17:08)
[2022-04-05] MEDS: INSULIN LISPRO 300 UNIT/3 ML PEN SUBQ SCH ×3 (17:08→20:45)
[2022-04-05] MEDS: ACETAMINOPHEN 325 MG TABLET PO PRN (17:10)
[2022-04-05] MEDS: APIXABAN 5 MG TABLET PO SCH (20:44)
[2022-04-05] MEDS: CALCIUM CARBONATE CHEW 500 MG TABLET PO SCH (20:44)
[2022-04-05] MEDS ORDERED: QUEtiapine 25 MG TABLET PO SCH (21:00)
[2022-04-06] MEDS: MEROPENEM 1 GM in SODIUM CHLORIDE 0.9% MINIBAG 100 ML IV SCH ×3 (00:56→16:30)
[2022-04-06] MEDS: TAMSULOSIN 0.4 MG CAPSULE PO SCH (08:55)
[2022-04-06] MEDS: PROPRANOLOL ER 60 MG CAPSULE PO SCH (08:55)
[2022-04-06] MEDS: APIXABAN 5 MG TABLET PO SCH ×2 (08:55→21:31)
[2022-04-06] MEDS: CALCIUM CARBONATE CHEW 500 MG TABLET PO SCH ×2 (08:55→21:31)
[2022-04-06] MEDS: INSULIN LISPRO 300 UNIT/3 ML PEN SUBQ SCH ×7 (08:55→21:42)
[2022-04-06] MEDS: CHOLECALCIFEROL 25 MCG TABLET PO SCH (09:39)
[2022-04-06] MEDS: LACTOBACILLUS RHAMNOSUS GG CAPSULE PO SCH (09:39)
[2022-04-06] MEDS: oxyCODONE 5 MG TABLET PO PRN ×2 (10:26→21:37)
[2022-04-06 11:30] LABS: ESTIMATED AVERAGE GLUCOSE 140 mg/dL (70-100); HEMOGLOBIN A1c% 6.5 % (4.27-6.07)
--- NOTE | 2022-04-06 12:13 | HISTORY & PHYSICAL EXAMINATION ---
Chief Complaint - Chief Complaint Chief Complaint: UTI History of Present Illness - History Obtained From History obtained from: [employer] and patient - History of Present Illness HPI Comment/Other: Mr. Carias is a 66 year old man who is being admitted as swing bed status to complete IV antibiotic therapy for UTI. He was brought to the ED on 03/30 with weakness, hypotension, and confusion. UA was consistent with UTI. Urine cultures came back positive for E. coli, ESBL-producing with multiple resistances including to cephalosporins. Blood cultures have been negative to date. We are treating with IV Meropenem for 21 days with today being day 6 of treatment. He is continuing to feel better now. His urinary frequency and urgency have improved with the flomax. He states he is having trouble sleeping and only gets about an hour of sleep nightly. He is sleeping poorly due to having nightmares about his fall from his ladder two weeks ago. His pain from the fall is well-managed with oxycodone. History - Past Medical History Cardiovascular: reports: Other Respiratory: reports: Sleep apnea, Other (Chest tubes for hemo-pneumothorax at [facility]) Neuro: reports: Other Endocrine/Autoimmune: reports: Type 2 diabetes GI: reports: Other (splenic and kidney trauma and retroperitoneal hematoma from that trauma) : reports: Other (Kidney laceration) HEENT: reports: Other (Recent L eye surgery) Psych: reports: Other Musculoskeletal: reports: Other - Past Surgical History Ortho: reports: Hip replacement - Family & Social History Family History: Mother: , Father: , Sister: Alive and Well, Brother: Alive and Well Family History Comment/Other: Hre is estranged from 2 brothers and 1 sister, 1 brother . He has no children. Living Situation: Alone Social History Notes: Alcohol previously 1/wk, none since trauma on 03/16/22. Never smoked cigarettes. Used marijuana when was younger. - Substance History Use: Uses substance without health or social issues: NONE - POLST POLST Status: Full Code Meds/Allgy - Home Medications Home Medications: Ambulatory Orders Medication Instructions Recorded Confirmed Acetaminophen [Acetaminophen Extra 1,000 mg PO Q6H 03/30/22 04/05/22 Strength] Apixaban [Eliquis] 5 mg PO BID 03/30/22 04/05/22 Bisacodyl Supp [Dulcolax Supp] 10 mg RC PRN PRN 03/30/22 04/05/22 Bismuth Subsalicylate [[place] 30 ml PO PRN PRN 03/30/22 04/05/22 Bismuth] Carboxymethylcellulose Sodium 1 drops EACHEYE PRN PRN 03/30/22 04/05/22 [Refresh Tears] Cholecalciferol [Vitamin D3] 25 mcg PO DAILY 03/30/22 04/05/22 Insulin Lispro [Humalog] 0 - 9 units SQ TID 03/30/22 04/05/22 Multivitamin W/Minerals [Theragran 1 each PO DAILY 03/30/22 04/05/22 M] Oxycodone HCl 10 mg PO .Q4-6H PRN 03/30/22 04/05/22 QUEtiapine [SEROquel] 12.5 mg PO HS PRN 03/30/22 04/05/22 Senna [Senokot] 17.2 mg PO PRN PRN 03/30/22 04/05/22 Sodium Chloride [Saline Nasal 2 spray AILYN Q2H PRN 03/30/22 04/05/22 [place]] metFORMIN [Glucophage] 500 mg PO BIDWM 03/30/22 04/05/22 oxyCODONE [Roxicodone] 5 mg PO .Q4-6H PRN 03/30/22 04/05/22 polyethylene glycoL 3350 [Miralax] 17 gm PO BID 03/30/22 04/05/22 - Allergies Allergies/Adverse Reactions: Allergies Allergy/AdvReac Type Severity Reaction Status Date / Time medazepam AdvReac Hallucinati Verified 03/30/22 11:13 ons Review of Systems - Constitutional Constitutional: denies: Fever, Weakness, Poor appetite - Cardiovascular Cariovascular: denies: Chest pain - Respiratory Respiratory: denies: SOB at rest - Gastrointestinal Gastrointestinal: denies: Abdominal pain, Diarrhea, Nausea, Vomiting - Genitourinary Genitourinary: denies: Frequency, Urgency - Neurological Neurological: denies: Dizziness - Psychiatric Psychiatric: reports: Other (Recurrent nightmares with difficulty sleeping due to recent fall.) - All Other Systems All Other Systems: reports: Reviewed and negative Exam - Vital Signs Reviewed Vital Signs: Yes Vital Signs: Vital Signs x48h Temp Pulse Resp BP Pulse Ox 11/10/22 07:24 36.7 C 94 18 130/79 97 - Physical Exam General Appearance: positive: No acute distress, Alert Eyes Bilateral: positive: Normal inspection, PERRL, EOMI ENT: positive: No signs of dehydration Neck: positive: Nml inspection Respiratory: positive: No respiratory distress, Breath sounds nml Cardiovascular: positive: Regular rate & rhythm, No murmur Abdomen: positive: No distention, Other (Ecchymois on left lateral abdominal wall) Skin: positive: Color nml, No rash, Warm, Dry Extremities: positive: No pedal edema Neurologic/Psychiatric: positive: Oriented x3 Conclusion/Plan - Problem List (1) Infection due to ESBL-producing Escherichia coli Conclusion/Plan: Urine cultures came back positive for E. coli, ESBL-producing. It has multiple resistances including to cephalosporins. Blood cultures are negative to date. We are treating with IV meropenem, we are treating for 21 days, today is day 6 of treatment. (2) Urinary tract infection Conclusion/Plan: He was brought to the ED on 03/30 presenting with confusion, weakness, and hypotension. UA showed many WBC, many bacteria, and few sq cells which was consistent with UTI. He also had sepsis with a systolic BP of 89, HR of 140 with sinus tach, WBC 17, and lactic acid of 2.4. He was given 1L of crystalloids and his BP improved to 90-110, HR down to 110-120. He was started on empiric antibiotic therapy with IV ceftriaxone, but was switched to IV meropenem based on urine culture results. Sepsis criteria after starting antibiotic treatment. CT of the abdomen and pelvis showed no obstruction or pyelonephritis, but bilateral hydronephrosis was present. He was complaining of urinary frequency and urgency, with some pain in his pelvis. He was given flomax for these sympt oms which he says helped, we will continue flomax daily. Qualifiers: Urinary tract infection type: acute cystitis Hematuria presence: without h ematuria Qualified Code(s): N30.00 - Acute cystitis without hematuria (3) Hydronephrosis Conclusion/Plan: CT abdomen pelvis done during previous admission showed bilateral hydronephrosis without evidence of calcific obstruction. (4) Diarrhea Conclusion/Plan: He did have 10 episodes of loose stools overnight from 04/02-04/03 and more during the day on 04/03. Stool testing came back negative for c-diff. He was given imodium and Metformin was held to avoid worsening diarrhea. Today, his stools are more formed and solid. We will continue to hold his Metformin and give imodium as needed. He will also be given a probiotic . (5) Hx of multiple trauma Conclusion/Plan: He fell off a ladder on 03/16/2022 and sustained trauma to multiple organs, was air transferred to [facility] where he was hospitalized for 8 days. He had multiple rib fractures, apical pneumothorax, pulmonary laceration, left kidney bleed, retroperitoneal hematoma, splenic laceration, acute blood loss anemia, right femur fracture, left scapula fracture, left iliac fracture, L2 vertebral fracture, C7, T1-T9 and L2-L4 transverse process fractures, blunt cardiac trauma, and pulmonary embolism, started on Eliquis. He needed chest tubes, 2 surgeries to the right femur. He was then discharge for rehab to formerly [facility]. We will give Oxycodone as needed for pain control. He will continue to work with PT and OT. Femur x-ray, pelvis x-ray, and scapula x-rays were repeated as requested by [facility]. Scapula x-ray had poorly visualized fracture fragment overlying the superior scapula, fracture in this region could not be excluded. We will order CT of left shoulder and lumbar spine for follow-up of fractures. We will discuss these films with [facility] to determine further management and to see if he needs in-person follow up. (6) DM type 2 (diabetes mellitus, type 2) Conclusion/Plan: We will continue managing his diabetes with insulin and hold his home metformin to avoid risk of diarrhea which he had during prior admission. We will continue carb-controlled diet. We will give him lispro 3 units with each meal and sliding scale. Glucose levels today were 141 and 143. A1C checked yesterday was 6.5%. We will continue to monitor glucose. We will continue metformin upon discharge. (7) Hx pulmonary embolism Conclusion/Plan: During his stay at [facility], he developed a pulmonary embolism. We will continue current dose of Eliquis at 5mg twice daily. We will continue this upon discharge and he will continue to take this through May 2022 as per discharge summary from [facility]. (8) Insomnia Conclusion/Plan: We will increase Seroquel and also give him Elavil to help with his insomnia. He stated during previous admission that a good night sleep puts him in a better place. He is having trouble getting a good night's rest due to nightmares from his fall. He does note that this has also been a chronic problem prior to fall where he will wake up having a panic attack. He also has a fan blowing air on him to help him sleep. (9) Tachycardia Conclusion/Plan: He had persistent sinus tachycardia at onset of prior admission despite normal blood pressures. It was thought to be caused by pain from multiple fractures. ECG was done which showed early R/S transition, there was no EKG for comparison. ECG was suggestive of pulmonary pathology, he has a history of sleep apnea not using CPAP and did have an acute pulmonary embolus while at [facility]. CXR was done during prior admission and did not show active disease. While he was at [facility], he had a diagnosis of cardiac contusion, but discharge summary said he had a normal TTE. His trops, T4, and TSH were normal. Echo was done here during prior admission which showed an underfilled LV with hyperdynamic LV function, consistent with volume depletion, which was treated with increased IV fluids and PO fluid intake. Hospitalist during prior admission thought anxiety and insomnia in addition to pain was causing tachycardia. He did not want to try benzodiazepenes because they caused hallucinations while he was at [facility]. He was started on propanolol to help with tachycardia and anxiety, we will continue propranolol and monitor heart rates. His heart rate today was 94. (10) LARRY (obstructive sleep apnea) Conclusion/Plan: He previously tried CPAP machines, but did not tolerate them and that is why he does not use one. He tries to sleep on his side or stomach.
[2022-04-06] MEDS: ACETAMINOPHEN 325 MG TABLET PO PRN (14:15)
[2022-04-06] MEDS: AMITRIPTYLINE 10 MG TABLET PO SCH (21:31)
[2022-04-06] MEDS: QUEtiapine 25 MG TABLET PO SCH (21:41)
[2022-04-07] MEDS: MEROPENEM 1 GM in SODIUM CHLORIDE 0.9% MINIBAG 100 ML IV SCH ×4 (00:56→21:10)
--- NOTE | 2022-04-07 02:26 | CT Report ---
PROCEDURE: UPPER EXTREMITY WO - LT INDICATIONS: scapula fx not visualized on plain film 04/05 TECHNIQUE: Noncontrast 2 mm axial sections were acquired through the elbow joint, with coronal and sagittal refo rmats. For radiation dose reduction, the following was used: automated exposure control, adjustment of mA and/or kV according to patient size. COMPARISON: Scapular x-ray 04/05/2022. FINDINGS: Image quality: Excellent. Bones: There is a comminuted fracture of the scapula involving the superior angle. The glenoid appea rs intact. The remaining visualized osseous structures appear intact.No other acute fracture or sublu xation. Soft tissues: No discrete hematoma collections. Visualized lungs are clear. IMPRESSION: 1. Comminuted fracture of the scapula involving the superior angle. Reviewed by: David Weaver MD on 04/07/2022 2:25 AM PST Approved by: David Weaver MD on 04/07/2022 2:25 AM PST Station ID: [id number]
--- NOTE | 2022-04-07 02:34 | CT Report ---
PROCEDURE: LUMBAR SPINE WO INDICATIONS: L2 fx needs fu TECHNIQUE: Noncontrast 3 mm thick sections acquired from the T12 level to the sacrum. Sagittal and coronal refo rmats were constructed. For radiation dose reduction, the following was used: automated exposure co ntrol, adjustment of mA and/or kV according to patient size. COMPARISON: CT abdomen pelvis 03/30/2022. FINDINGS: Image quality: Excellent. Bones: There is preserved bony alignment. There are minimally displaced lateral fractures through th e right inferior endplates of the L2 and L3 vertebral bodies. There are also mildly displaced fractur es of the left transverse processes of L2, L3, L4, and L5. No suspicious lytic or blastic bony lesion s. Central spinal caliber is of normal overall caliber. There is severe facet arthropathy at L5-S1 a nd moderate arthropathy at L4-5. No pars defects. Soft tissues: No retroperitoneal masses or hematomas. Visualized aorta is normal in caliber. Multi ple stones are demonstrated within the kidneys, with the largest stone measuring up to 1.1 cm and dem onstrating attenuation values of approximately 0566-8932 Hounsfield units. There is mild asymmetric l eft perinephric stranding. The partially visualized right kidney demonstrates mild hydronephrosis. Th ere is a stone within the right kidney measuring up to 0.7 cm with attenuation values of approximatel y [id number] Hounsfield units. IMPRESSION: 1. Minimally displaced lateral fractures through the right inferior endplates of the L2 and L3 verteb ral bodies. 2. Mildly displaced fractures of the left transverse processes at L2-L5. 3. Bilateral nephrolithiasis within the partially visualized kidneys. Reviewed by: David Weaver MD on 04/07/2022 2:33 AM PST Approved by: David Weaver MD on 04/07/2022 2:33 AM PST Station ID: [id number]
[2022-04-07] MEDS: oxyCODONE 5 MG TABLET PO PRN (06:04)
[2022-04-07] MEDS: INSULIN LISPRO 300 UNIT/3 ML PEN SUBQ SCH ×6 (08:29→17:06)
[2022-04-07] MEDS: TAMSULOSIN 0.4 MG CAPSULE PO SCH (08:32)
[2022-04-07] MEDS: CHOLECALCIFEROL 25 MCG TABLET PO SCH (08:32)
[2022-04-07] MEDS: LACTOBACILLUS RHAMNOSUS GG CAPSULE PO SCH (08:32)
[2022-04-07] MEDS: APIXABAN 5 MG TABLET PO SCH ×2 (08:33→21:11)
[2022-04-07] MEDS: PROPRANOLOL ER 60 MG CAPSULE PO SCH (08:33)
[2022-04-07] MEDS: CALCIUM CARBONATE CHEW 500 MG TABLET PO SCH ×2 (08:34→19:06)
[2022-04-07] MEDS: polyethylene glycoL 3350 17 GM PACKET PO SCH (08:44)
[2022-04-07] MEDS: ACETAMINOPHEN 325 MG TABLET PO PRN ×2 (13:11→21:11)
[2022-04-07] MEDS: QUEtiapine 25 MG TABLET PO SCH (21:10)
[2022-04-07] MEDS: AMITRIPTYLINE 10 MG TABLET PO SCH (21:11)
[2022-04-08] MEDS: MEROPENEM 1 GM in SODIUM CHLORIDE 0.9% MINIBAG 100 ML IV SCH ×3 (05:44→21:43)
[2022-04-08] MEDS: polyethylene glycoL 3350 17 GM PACKET PO SCH (08:14)
[2022-04-08] MEDS: TAMSULOSIN 0.4 MG CAPSULE PO SCH (08:15)
[2022-04-08] MEDS: CHOLECALCIFEROL 25 MCG TABLET PO SCH (08:15)
[2022-04-08] MEDS: CALCIUM CARBONATE CHEW 500 MG TABLET PO SCH ×2 (08:15→21:44)
[2022-04-08] MEDS: APIXABAN 5 MG TABLET PO SCH ×2 (08:19→21:44)
[2022-04-08] MEDS: LACTOBACILLUS RHAMNOSUS GG CAPSULE PO SCH (08:19)
[2022-04-08] MEDS: PROPRANOLOL ER 60 MG CAPSULE PO SCH (08:20)
[2022-04-08] MEDS: ACETAMINOPHEN 325 MG TABLET PO PRN (12:34)
--- NOTE | 2022-04-08 15:46 | PROVIDER PROGRESS NOTE ---
Subjective - Prog Note Date Prog Note Date: 04/08/22 Prog Note Time: 15:44 - Subjective Subjective: For the most part his medical problems have stabilized. His pain is under control. He is working with physical therapy. The main problem he finds his sleep at night. With his acute care admission we have started him on Seroquel and then I added Elavil. He describes night terrors where he wakes up confused, does not know where he is and is exceedingly frightened. He has to have the door open at night because he is claustrophobic. Last night he had a particularly bad episode where he feels "I am going psychotic". But he is not hallucinating, denies delusions. He is just terrified. He has dreams about falling off the ladder. Current Medications - Current Medications Current Medications: Active Medications Acetaminophen (Acetaminophen 325 Mg Tablet) 650 mg PO Q4HR PRN PRN Reason: Pain 1 to 4, or Fever Last Admin: 04/08/22 12:34 Dose: 650 mg Amitriptyline HCl (Amitriptyline 10 Mg Tablet) 10 mg PO QPM [facility] Last Admin: 04/07/22 21:11 Dose: Not Given Apixaban (Apixaban 5 Mg Tablet) 5 mg PO BID [facility] Last Admin: 04/08/22 08:19 Dose: 5 mg Calcium Carbonate/Glycine (Calcium Carbonate Chew 500 Mg Tablet) 500 mg PO BID [facility] Last Admin: 04/08/22 08:15 Dose: 500 mg Cholecalciferol (Cholecalciferol 25 Mcg Tablet) 50 mcg PO DAILY [facility] Last Admin: 04/08/22 08:15 Dose: 50 mcg Meropenem 1 gm/ Sodium (Chloride) 100 mls @ 200 mls/hr IV Q8HR [facility] Stop: 04/21/22 22:29 Last Infusion: 04/08/22 06:14 Dose: Infused Lactobacillus Rhamnosus (Lactobacillus Rhamnosus Gg Capsule) 1 cap PO DAILY [facility] Last Admin: 04/08/22 08:19 Dose: 1 cap Loperamide HCl (Loperamide 2 Mg Capsule) 2 mg PO QID PRN PRN Reason: Diarrhea Oxycodone HCl (Oxycodone 5 Mg Tablet) 5 mg PO Q4HR PRN PRN Reason: Pain 5 to 7 Last Admin: 04/06/22 21:37 Dose: 5 mg Oxycodone HCl (Oxycodone 5 Mg Tablet) 10 mg PO Q4HR PRN PRN Reason: Pain 8 to 10 Last Admin: 04/07/22 06:04 Dose: 10 mg Polyethylene Glycol (Polyethylene Glycol 3350 17 Gm Packet) 17 gm PO DAILY [facility] Last Admin: 04/08/22 08:14 Dose: 17 gm Propranolol HCl (Propranolol Er 60 Mg Capsule) 60 mg PO DAILY [facility] Last Admin: 04/08/22 08:20 Dose: 60 mg Quetiapine Fumarate (Quetiapine 25 Mg Tablet) 50 mg PO QPM [facility] Last Admin: 04/07/22 21:10 Dose: 50 mg Tamsulosin HCl (Tamsulosin 0.4 Mg Capsule) 0.4 mg PO DAILY [facility] Last Admin: 04/08/22 08:15 Dose: 0.4 mg Acetaminophen [Acetaminophen Extra Strength] 1,000 mg PO Q6H 03/30/22 Apixaban [Eliquis] 5 mg PO BID 03/30/22 Bisacodyl Supp [Dulcolax Supp] 10 mg RC PRN PRN 03/30/22 Bismuth Subsalicylate [[place] Bismuth] 30 ml PO PRN PRN 03/30/22 Carboxymethylcellulose Sodium [Refresh Tears] 1 drops EACHEYE PRN PRN 03/30/22 Cholecalciferol [Vitamin D3] 25 mcg PO DAILY 03/30/22 Insulin Lispro [Humalog] 0 - 9 units SQ TID 03/30/22 Multivitamin W/Minerals [Theragran M] 1 each PO DAILY 03/30/22 Oxycodone HCl 10 mg PO .Q4-6H PRN 03/30/22 QUEtiapine [SEROquel] 12.5 mg PO HS PRN 03/30/22 Senna [Senokot] 17.2 mg PO PRN PRN 03/30/22 Sodium Chloride [Saline Nasal [place]] 2 spray AILYN Q2H PRN 03/30/22 metFORMIN [Glucophage] 500 mg PO BIDWM 03/30/22 oxyCODONE [Roxicodone] 5 mg PO .Q4-6H PRN 03/30/22 polyethylene glycoL 3350 [Miralax] 17 gm PO BID 03/30/22 Objective - Vital Signs/Intake & Output Reviewed Vital Signs: Yes Vital Signs: Vital Signs x48h Temp Pulse Resp BP Pulse Ox 04/08/22 09:06 36.5 C 04/08/22 08:17 97 17 122/72 96 Intake & Output: Intake & Output 04/05/22 04/06/22 04/07/22 04/08/22 23:59 23:59 23:59 23:59 Intake Total 1050 2430 1720 580 Output Total 925 2725 2450 1500 Balance 125 -295 -730 -920 - Objective General Appearance: positive: No acute distress, Alert, Other (Well-nourished well-developed white male who looks stated age, comfortable during the daylight hours) Eyes Bilateral: positive: PERRL, EOMI ENT: positive: No signs of dehydration Neck: positive: No JVD. negative: Stiff neck Respiratory: positive: No respiratory distress, Other (Does have pain in the affected rib cage area where his fractures are when I have him take a deep breath.). negative: Wheezes, Rales, Rhonchi Cardiovascular: positive: Regular rate & rhythm Abdomen: positive: Non-tender, No organomegaly, Nml bowel sounds, No distention Skin: positive: Warm, Dry Extremities: positive: Full ROM, No pedal edema Neurologic/Psychiatric: positive: Oriented x3, CN's nml (2-12), Motor nml - Lab Results Other Labs: Lab Results x24hrs 04/08/22 04/07/22 Range/Units 09:25 16:35 POC Whole Bld Glucose 252 H 124 H (70 - 100) mg/dL Assessment/Plan - Problem List (1) PTSD (post-traumatic stress disorder) Impression: This is a preliminary gas on my part. Since it centers around him falling off the ladder and nightmares and startling. I will ask for a telepsych consult via telephone consult. (2) Hx of multiple trauma Impression: All of the x-rays that the trauma clinic and orthopedic spine clinic requested from [facility] at his discharge summary have been done. I called [facility] yesterday to get the phone number of the trauma follow or resident. I call them and there has been no phone call back. All images have been pushed to [facility]. I will try again on Sunday, April 10 and I may just call the fellow on-call or resident on-call
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
[2022-04-08] MEDS: traZODone 50 MG TABLET PO SCH (21:44)
[2022-04-08] MEDS: BENZOCAINE/MENTHOL LOZENGE MM PRN (22:26)
[2022-04-09] MEDS: MEROPENEM 1 GM in SODIUM CHLORIDE 0.9% MINIBAG 100 ML IV SCH ×3 (05:56→21:24)
[2022-04-09] MEDS: BENZOCAINE/MENTHOL LOZENGE MM PRN (06:03)
[2022-04-09] MEDS: polyethylene glycoL 3350 17 GM PACKET PO SCH (10:21)
[2022-04-09] MEDS: CALCIUM CARBONATE CHEW 500 MG TABLET PO SCH ×2 (10:21→21:24)
[2022-04-09] MEDS: PROPRANOLOL ER 60 MG CAPSULE PO SCH (10:21)
[2022-04-09] MEDS: CHOLECALCIFEROL 25 MCG TABLET PO SCH (10:21)
[2022-04-09] MEDS: APIXABAN 5 MG TABLET PO SCH ×2 (10:21→21:24)
[2022-04-09] MEDS: LACTOBACILLUS RHAMNOSUS GG CAPSULE PO SCH (10:21)
[2022-04-09] MEDS: TAMSULOSIN 0.4 MG CAPSULE PO SCH (10:21)
[2022-04-09] MEDS ORDERED: PROCHLORPERAZINE 5 MG TABLET PO PRN (17:10)
[2022-04-09] MEDS: ACETAMINOPHEN 325 MG TABLET PO PRN (19:29)
[2022-04-09] MEDS: traZODone 50 MG TABLET PO SCH (21:24)
[2022-04-10] MEDS: MEROPENEM 1 GM in SODIUM CHLORIDE 0.9% MINIBAG 100 ML IV SCH ×4 (06:08→21:43)
[2022-04-10] MEDS: TAMSULOSIN 0.4 MG CAPSULE PO SCH (08:38)
[2022-04-10] MEDS: LACTOBACILLUS RHAMNOSUS GG CAPSULE PO SCH (08:38)
[2022-04-10] MEDS: APIXABAN 5 MG TABLET PO SCH ×2 (08:38→21:43)
[2022-04-10] MEDS: polyethylene glycoL 3350 17 GM PACKET PO SCH (08:39)
[2022-04-10] MEDS: PROPRANOLOL ER 60 MG CAPSULE PO SCH (08:39)
[2022-04-10] MEDS: CALCIUM CARBONATE CHEW 500 MG TABLET PO SCH ×2 (08:39→21:43)
[2022-04-10] MEDS: CHOLECALCIFEROL 25 MCG TABLET PO SCH (08:40)
[2022-04-10] MEDS: ACETAMINOPHEN 325 MG TABLET PO PRN ×2 (10:38→18:43)
[2022-04-10] MEDS: oxyCODONE 5 MG TABLET PO PRN ×2 (12:30→16:05)
[2022-04-10] MEDS: traZODone 50 MG TABLET PO SCH (21:25)
[2022-04-11] MEDS: ACETAMINOPHEN 325 MG TABLET PO PRN ×2 (01:25→21:23)
[2022-04-11] MEDS: MEROPENEM 1 GM in SODIUM CHLORIDE 0.9% MINIBAG 100 ML IV SCH ×3 (06:00→21:23)
[2022-04-11] MEDS: CALCIUM CARBONATE CHEW 500 MG TABLET PO SCH ×2 (08:34→21:23)
[2022-04-11] MEDS: polyethylene glycoL 3350 17 GM PACKET PO SCH (08:34)
[2022-04-11] MEDS: TAMSULOSIN 0.4 MG CAPSULE PO SCH (08:35)
[2022-04-11] MEDS: APIXABAN 5 MG TABLET PO SCH ×2 (08:35→21:23)
[2022-04-11] MEDS: PROPRANOLOL ER 60 MG CAPSULE PO SCH (08:35)
[2022-04-11] MEDS: LACTOBACILLUS RHAMNOSUS GG CAPSULE PO SCH (08:35)
[2022-04-11] MEDS: CHOLECALCIFEROL 25 MCG TABLET PO SCH (08:35)
[2022-04-11] MEDS: oxyCODONE 5 MG TABLET PO PRN ×2 (12:25→16:40)
[2022-04-11] MEDS: INSULIN LISPRO 300 UNIT/3 ML PEN SUBQ SCH (16:40)
[2022-04-11] MEDS ORDERED: metFORMIN 500 MG TABLET PO SCH (17:00)
[2022-04-11] MEDS ORDERED: INSULIN LISPRO 100 UNIT/1 ML 10 ML MDV SUBQ SCH (17:00)
[2022-04-11] MEDS: BENZOCAINE/MENTHOL LOZENGE MM PRN (21:23)
[2022-04-11] MEDS: DOCUSATE SODIUM 250 MG CAPSULE PO SCH (21:23)
[2022-04-11] MEDS: traZODone 50 MG TABLET PO SCH (21:24)
[2022-04-12] MEDS: oxyCODONE 5 MG TABLET PO PRN ×3 (02:19→23:55)
[2022-04-12] MEDS: MEROPENEM 1 GM in SODIUM CHLORIDE 0.9% MINIBAG 100 ML IV SCH ×3 (05:58→21:29)
[2022-04-12] MEDS: INSULIN LISPRO 300 UNIT/3 ML PEN SUBQ SCH ×3 (07:52→17:04)
[2022-04-12] MEDS: PROPRANOLOL ER 60 MG CAPSULE PO SCH (08:10)
[2022-04-12] MEDS: LACTOBACILLUS RHAMNOSUS GG CAPSULE PO SCH (08:10)
[2022-04-12] MEDS: CHOLECALCIFEROL 25 MCG TABLET PO SCH (08:10)
[2022-04-12] MEDS: polyethylene glycoL 3350 17 GM PACKET PO SCH (08:10)
[2022-04-12] MEDS: DOCUSATE SODIUM 250 MG CAPSULE PO SCH (08:10)
[2022-04-12] MEDS: APIXABAN 5 MG TABLET PO SCH ×2 (08:10→21:29)
[2022-04-12] MEDS: CALCIUM CARBONATE CHEW 500 MG TABLET PO SCH ×2 (08:11→21:29)
[2022-04-12] MEDS: TAMSULOSIN 0.4 MG CAPSULE PO SCH (08:13)
[2022-04-12] MEDS: ACETAMINOPHEN 325 MG TABLET PO PRN (12:19)
[2022-04-12] MEDS: traZODone 50 MG TABLET PO SCH (21:29)
[2022-04-13] MEDS: MEROPENEM 1 GM in SODIUM CHLORIDE 0.9% MINIBAG 100 ML IV SCH ×3 (05:50→21:48)
[2022-04-13] MEDS: polyethylene glycoL 3350 17 GM PACKET PO SCH (08:24)
[2022-04-13] MEDS: CHOLECALCIFEROL 25 MCG TABLET PO SCH (08:25)
[2022-04-13] MEDS: LACTOBACILLUS RHAMNOSUS GG CAPSULE PO SCH (08:25)
[2022-04-13] MEDS: APIXABAN 5 MG TABLET PO SCH ×2 (08:25→21:47)
[2022-04-13] MEDS: TAMSULOSIN 0.4 MG CAPSULE PO SCH (08:25)
[2022-04-13] MEDS: PROPRANOLOL ER 60 MG CAPSULE PO SCH (08:25)
[2022-04-13] MEDS: DOCUSATE SODIUM 250 MG CAPSULE PO SCH (08:25)
[2022-04-13] MEDS: CALCIUM CARBONATE CHEW 500 MG TABLET PO SCH ×2 (08:25→21:47)
[2022-04-13] MEDS: INSULIN LISPRO 300 UNIT/3 ML PEN SUBQ SCH ×3 (08:26→17:05)
[2022-04-13] MEDS: oxyCODONE 5 MG TABLET PO PRN (14:12)
[2022-04-13] MEDS: ACETAMINOPHEN 325 MG TABLET PO PRN (17:15)
[2022-04-13] MEDS: traZODone 50 MG TABLET PO SCH (21:47)
[2022-04-14] MEDS: BENZOCAINE/MENTHOL LOZENGE MM PRN (04:39)
[2022-04-14] MEDS: ACETAMINOPHEN 325 MG TABLET PO PRN ×2 (04:41→23:54)
[2022-04-14] MEDS: oxyCODONE 5 MG TABLET PO PRN ×2 (04:42→15:51)
[2022-04-14] MEDS: MEROPENEM 1 GM in SODIUM CHLORIDE 0.9% MINIBAG 100 ML IV SCH ×3 (05:59→21:08)
[2022-04-14] MEDS: INSULIN LISPRO 300 UNIT/3 ML PEN SUBQ SCH ×3 (08:46→17:21)
[2022-04-14] MEDS: CHOLECALCIFEROL 25 MCG TABLET PO SCH (08:47)
[2022-04-14] MEDS: APIXABAN 5 MG TABLET PO SCH ×2 (08:47→21:07)
[2022-04-14] MEDS: PROPRANOLOL ER 60 MG CAPSULE PO SCH (08:47)
[2022-04-14] MEDS: polyethylene glycoL 3350 17 GM PACKET PO SCH (08:47)
[2022-04-14] MEDS: DOCUSATE SODIUM 250 MG CAPSULE PO SCH (08:47)
[2022-04-14] MEDS: LACTOBACILLUS RHAMNOSUS GG CAPSULE PO SCH (08:47)
[2022-04-14] MEDS: CALCIUM CARBONATE CHEW 500 MG TABLET PO SCH ×2 (08:47→21:07)
[2022-04-14] MEDS: TAMSULOSIN 0.4 MG CAPSULE PO SCH (08:48)
[2022-04-14] MEDS: traZODone 50 MG TABLET PO SCH (21:08)
[2022-04-15] MEDS: MEROPENEM 1 GM in SODIUM CHLORIDE 0.9% MINIBAG 100 ML IV SCH ×3 (06:26→22:07)
[2022-04-15] MEDS: polyethylene glycoL 3350 17 GM PACKET PO SCH (07:59)
[2022-04-15] MEDS: APIXABAN 5 MG TABLET PO SCH ×2 (07:59→22:07)
[2022-04-15] MEDS: CALCIUM CARBONATE CHEW 500 MG TABLET PO SCH ×2 (07:59→22:07)
[2022-04-15] MEDS: LACTOBACILLUS RHAMNOSUS GG CAPSULE PO SCH (07:59)
[2022-04-15] MEDS: TAMSULOSIN 0.4 MG CAPSULE PO SCH (07:59)
[2022-04-15] MEDS: PROPRANOLOL ER 60 MG CAPSULE PO SCH (07:59)
[2022-04-15] MEDS: CHOLECALCIFEROL 25 MCG TABLET PO SCH (07:59)
[2022-04-15] MEDS: INSULIN LISPRO 300 UNIT/3 ML PEN SUBQ SCH ×3 (08:00→16:51)
[2022-04-15] MEDS: DOCUSATE SODIUM 250 MG CAPSULE PO SCH (08:03)
[2022-04-15] MEDS: oxyCODONE 5 MG TABLET PO PRN ×4 (11:16→22:10)
[2022-04-15] MEDS: traZODone 50 MG TABLET PO SCH (22:07)
[2022-04-15] MEDS: BENZOCAINE/MENTHOL LOZENGE MM PRN (22:50)
[2022-04-16] MEDS: ACETAMINOPHEN 325 MG TABLET PO PRN ×2 (03:25→11:39)
[2022-04-16] MEDS: MEROPENEM 1 GM in SODIUM CHLORIDE 0.9% MINIBAG 100 ML IV SCH ×3 (06:29→21:59)
[2022-04-16] MEDS: CHOLECALCIFEROL 25 MCG TABLET PO SCH (08:00)
[2022-04-16] MEDS: DOCUSATE SODIUM 250 MG CAPSULE PO SCH (08:00)
[2022-04-16] MEDS: TAMSULOSIN 0.4 MG CAPSULE PO SCH (08:01)
[2022-04-16] MEDS: APIXABAN 5 MG TABLET PO SCH ×2 (08:01→21:55)
[2022-04-16] MEDS: PROPRANOLOL ER 60 MG CAPSULE PO SCH (08:01)
[2022-04-16] MEDS: CALCIUM CARBONATE CHEW 500 MG TABLET PO SCH ×2 (08:01→21:55)
[2022-04-16] MEDS: LACTOBACILLUS RHAMNOSUS GG CAPSULE PO SCH (08:01)
[2022-04-16] MEDS: polyethylene glycoL 3350 17 GM PACKET PO SCH (08:01)
[2022-04-16] MEDS: INSULIN LISPRO 300 UNIT/3 ML PEN SUBQ SCH ×3 (08:02→17:51)
[2022-04-16] MEDS: oxyCODONE 5 MG TABLET PO PRN (21:54)
[2022-04-16] MEDS: traZODone 50 MG TABLET PO SCH (21:55)
[2022-04-17] MEDS: ACETAMINOPHEN 325 MG TABLET PO PRN ×2 (01:52→19:06)
[2022-04-17] MEDS: MEROPENEM 1 GM in SODIUM CHLORIDE 0.9% MINIBAG 100 ML IV SCH ×3 (05:58→21:41)
[2022-04-17] MEDS: oxyCODONE 5 MG TABLET PO PRN ×4 (06:04→21:40)
[2022-04-17] MEDS: polyethylene glycoL 3350 17 GM PACKET PO SCH (08:02)
[2022-04-17] MEDS: PROPRANOLOL ER 60 MG CAPSULE PO SCH (08:03)
[2022-04-17] MEDS: CHOLECALCIFEROL 25 MCG TABLET PO SCH (08:03)
[2022-04-17] MEDS: CALCIUM CARBONATE CHEW 500 MG TABLET PO SCH ×2 (08:03→21:41)
[2022-04-17] MEDS: TAMSULOSIN 0.4 MG CAPSULE PO SCH (08:04)
[2022-04-17] MEDS: DOCUSATE SODIUM 250 MG CAPSULE PO SCH (08:04)
[2022-04-17] MEDS: LACTOBACILLUS RHAMNOSUS GG CAPSULE PO SCH (08:04)
[2022-04-17] MEDS: APIXABAN 5 MG TABLET PO SCH ×2 (08:04→21:40)
[2022-04-17] MEDS: INSULIN LISPRO 300 UNIT/3 ML PEN SUBQ SCH ×4 (08:05→20:53)
[2022-04-17 09:57] LABS: BILIRUBIN,URINE NEGATIVE (NEGATIVE); GLUCOSE, URINE (UA) 100 mg/dL (NEGATIVE); KETONES,URINE (UA) NEGATIVE (NEGATIVE); LEUKOCYTE ESTERASE, URINE NEGATIVE (NEGATIVE); NITRITE,URINE NEGATIVE (NEGATIVE); OCCULT BLOOD,URINE TRACE-INTA (NEGATIVE); PROTEIN,URINE NEGATIVE (NEGATIVE); UROBILINOGEN,URINE 0.2 (NORMAL) E.U./dL (NORMAL)
[2022-04-17 10:00] LABS: CLARITY,URINE CLEAR (CLEAR)
[2022-04-17 10:06] LABS: BACTERIA,URINE Rare /HPF (None Seen); SQUAMOUS EPITHELIAL CELL,UR RARE Squamous (<= Few)
[2022-04-17] MEDS: traZODone 50 MG TABLET PO SCH (21:41)
[2022-04-18] MEDS: ACETAMINOPHEN 325 MG TABLET PO PRN ×3 (01:12→20:19)
[2022-04-18] MEDS: CALCIUM CARBONATE CHEW 500 MG TABLET PO SCH ×2 (11:53→21:34)
[2022-04-18] MEDS: MEROPENEM 1 GM in SODIUM CHLORIDE 0.9% MINIBAG 100 ML IV SCH ×3 (11:53→21:34)
[2022-04-18] MEDS: APIXABAN 5 MG TABLET PO SCH ×2 (11:53→21:34)
[2022-04-18] MEDS: DOCUSATE SODIUM 250 MG CAPSULE PO SCH (11:54)
[2022-04-18] MEDS: LACTOBACILLUS RHAMNOSUS GG CAPSULE PO SCH (11:54)
[2022-04-18] MEDS: CHOLECALCIFEROL 25 MCG TABLET PO SCH (11:54)
[2022-04-18] MEDS: PROPRANOLOL ER 60 MG CAPSULE PO SCH (11:54)
[2022-04-18] MEDS: polyethylene glycoL 3350 17 GM PACKET PO SCH (11:54)
[2022-04-18] MEDS: TAMSULOSIN 0.4 MG CAPSULE PO SCH (11:55)
[2022-04-18] MEDS: INSULIN LISPRO 300 UNIT/3 ML PEN SUBQ SCH ×2 (12:07→17:12)
[2022-04-18] MEDS: traZODone 50 MG TABLET PO SCH (21:35)
[2022-04-19] MEDS: ACETAMINOPHEN 325 MG TABLET PO PRN ×3 (00:45→18:19)
[2022-04-19] MEDS: oxyCODONE 5 MG TABLET PO PRN ×2 (04:45→13:59)
[2022-04-19] MEDS: MEROPENEM 1 GM in SODIUM CHLORIDE 0.9% MINIBAG 100 ML IV SCH ×3 (05:57→21:42)
[2022-04-19] MEDS: APIXABAN 5 MG TABLET PO SCH ×2 (08:06→21:42)
[2022-04-19] MEDS: TAMSULOSIN 0.4 MG CAPSULE PO SCH (08:06)
[2022-04-19] MEDS: LACTOBACILLUS RHAMNOSUS GG CAPSULE PO SCH (08:06)
[2022-04-19] MEDS: PROPRANOLOL ER 60 MG CAPSULE PO SCH (08:06)
[2022-04-19] MEDS: CALCIUM CARBONATE CHEW 500 MG TABLET PO SCH ×2 (08:06→21:42)
[2022-04-19] MEDS: polyethylene glycoL 3350 17 GM PACKET PO SCH (08:06)
[2022-04-19] MEDS: CHOLECALCIFEROL 25 MCG TABLET PO SCH (08:06)
[2022-04-19] MEDS: DOCUSATE SODIUM 250 MG CAPSULE PO SCH (08:06)
[2022-04-19] MEDS: INSULIN LISPRO 300 UNIT/3 ML PEN SUBQ SCH ×3 (08:07→16:56)
[2022-04-19] MEDS: traZODone 50 MG TABLET PO SCH (21:42)
[2022-04-20] MEDS: MEROPENEM 1 GM in SODIUM CHLORIDE 0.9% MINIBAG 100 ML IV SCH ×3 (06:30→20:58)
[2022-04-20] MEDS: INSULIN LISPRO 300 UNIT/3 ML PEN SUBQ SCH ×3 (08:21→16:50)
[2022-04-20] MEDS: CALCIUM CARBONATE CHEW 500 MG TABLET PO SCH ×2 (08:36→19:05)
[2022-04-20] MEDS: APIXABAN 5 MG TABLET PO SCH ×2 (08:37→19:05)
[2022-04-20] MEDS: CHOLECALCIFEROL 25 MCG TABLET PO SCH (08:37)
[2022-04-20] MEDS: TAMSULOSIN 0.4 MG CAPSULE PO SCH (08:38)
[2022-04-20] MEDS: PROPRANOLOL ER 60 MG CAPSULE PO SCH (08:40)
[2022-04-20] MEDS: LACTOBACILLUS RHAMNOSUS GG CAPSULE PO SCH (08:41)
[2022-04-20] MEDS: DOCUSATE SODIUM 250 MG CAPSULE PO SCH (08:41)
[2022-04-20] MEDS: polyethylene glycoL 3350 17 GM PACKET PO SCH (08:45)
[2022-04-20] MEDS: oxyCODONE 5 MG TABLET PO PRN ×2 (11:00→15:43)
[2022-04-20] MEDS: ACETAMINOPHEN 325 MG TABLET PO PRN ×2 (14:07→21:05)
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
--- NOTE | 2022-04-20 16:52 | XRAY Report ---
PROCEDURE: Shoulder 2 View LT INDICATIONS: fall 01/2022 and now w shoulder deformity TECHNIQUE: 2 views of the shoulder were acquired. COMPARISON: None. FINDINGS: Bones: No fracture. On the transscapular Y view and separation of the acromioclavicular joint is see n measuring 1.8 cm. No suspicious bony lesions. Visualized ribs appear intact. Soft tissues: No suspicious soft tissue calcifications. IMPRESSION: Left AC joint separation. Reviewed by: Neo Velasquez on 04/20/2022 4:51 PM PST Approved by: Neo Velasquez on 04/20/2022 4:51 PM [facility] Station ID: [id number]
--- NOTE | 2022-04-20 16:55 | XRAY Report ---
PROCEDURE: Ribs w/PA Chest LT INDICATIONS: fall 01/2022 and w left chest wall and chest pain TECHNIQUE: 2 views of the left ribs were acquired, along with a single view chest. COMPARISON: None FINDINGS: Surgical changes and devices: None. Bones and chest wall: No fractures or dislocations. No suspicious bony lesions. Overlying soft tis sues appear unremarkable. The left AC joint is displaced with the clavicle superiorly 1.4 cm. Lungs and pleura: No pleural effusions or pneumothorax. Lungs appear clear. Mediastinum: Mediastinal contours appear normal. Heart size is normal. IMPRESSION: 1. No left rib fracture. 2. Normal PA view chest. 3. Left AC joint separation. Reviewed by: Neo Velasquez on 04/20/2022 4:53 PM PST Approved by: Neo Velasquez on 04/20/2022 4:53 PM PST Station ID: [id number]
[2022-04-20] MEDS: traZODone 50 MG TABLET PO SCH (19:05)
[2022-04-21] MEDS: oxyCODONE 5 MG TABLET PO PRN ×3 (00:58→22:51)
[2022-04-21] MEDS: MAG HYDROX/AL HYDROX/SIMETH 30 ML UDC PO PRN ×4 (00:58→16:25)
[2022-04-21] MEDS: MEROPENEM 1 GM in SODIUM CHLORIDE 0.9% MINIBAG 100 ML IV SCH ×3 (06:09→21:06)
[2022-04-21] MEDS: polyethylene glycoL 3350 17 GM PACKET PO SCH (08:39)
[2022-04-21] MEDS: DOCUSATE SODIUM 250 MG CAPSULE PO SCH (08:40)
[2022-04-21] MEDS: LACTOBACILLUS RHAMNOSUS GG CAPSULE PO SCH (08:40)
[2022-04-21] MEDS: CHOLECALCIFEROL 25 MCG TABLET PO SCH (08:40)
[2022-04-21] MEDS: APIXABAN 5 MG TABLET PO SCH ×2 (08:40→21:05)
[2022-04-21] MEDS: TAMSULOSIN 0.4 MG CAPSULE PO SCH (08:40)
[2022-04-21] MEDS: CALCIUM CARBONATE CHEW 500 MG TABLET PO SCH ×2 (08:40→21:05)
[2022-04-21] MEDS: PROPRANOLOL ER 60 MG CAPSULE PO SCH (08:41)
[2022-04-21] MEDS: INSULIN LISPRO 300 UNIT/3 ML PEN SUBQ SCH ×3 (08:41→16:32)
[2022-04-21] MEDS: ACETAMINOPHEN 325 MG TABLET PO PRN ×2 (11:10→21:08)
[2022-04-21] MEDS: traZODone 50 MG TABLET PO SCH (21:06)
[2022-04-22] MEDS: MAG HYDROX/AL HYDROX/SIMETH 30 ML UDC PO PRN (07:01)
[2022-04-22] MEDS: polyethylene glycoL 3350 17 GM PACKET PO SCH (08:31)
[2022-04-22] MEDS: PROPRANOLOL ER 60 MG CAPSULE PO SCH (08:31)
[2022-04-22] MEDS: LACTOBACILLUS RHAMNOSUS GG CAPSULE PO SCH (08:32)
[2022-04-22] MEDS: CHOLECALCIFEROL 25 MCG TABLET PO SCH (08:32)
[2022-04-22] MEDS: TAMSULOSIN 0.4 MG CAPSULE PO SCH (08:32)
[2022-04-22] MEDS: DOCUSATE SODIUM 250 MG CAPSULE PO SCH (08:32)
[2022-04-22] MEDS: APIXABAN 5 MG TABLET PO SCH ×2 (08:32→20:39)
[2022-04-22] MEDS: CALCIUM CARBONATE CHEW 500 MG TABLET PO SCH ×2 (08:33→20:39)
[2022-04-22] MEDS: INSULIN LISPRO 300 UNIT/3 ML PEN SUBQ SCH ×3 (08:35→17:41)
[2022-04-22] MEDS: ACETAMINOPHEN 325 MG TABLET PO PRN ×2 (09:04→21:44)
[2022-04-22] MEDS: oxyCODONE 5 MG TABLET PO PRN ×2 (10:54→17:41)
[2022-04-22] MEDS: SODIUM CHLORIDE FLUSH 0.9% 10 ML SYRINGE IVP SCH ×2 (17:50→23:45)
[2022-04-22] MEDS: traZODone 50 MG TABLET PO SCH (20:39)
[2022-04-23] MEDS: ACETAMINOPHEN 325 MG TABLET PO PRN ×3 (03:43→23:55)
[2022-04-23] MEDS: polyethylene glycoL 3350 17 GM PACKET PO SCH (07:53)
[2022-04-23] MEDS: SODIUM CHLORIDE FLUSH 0.9% 10 ML SYRINGE IVP SCH ×2 (07:53→16:57)
[2022-04-23] MEDS: INSULIN LISPRO 300 UNIT/3 ML PEN SUBQ SCH ×3 (07:53→16:57)
[2022-04-23] MEDS: DOCUSATE SODIUM 250 MG CAPSULE PO SCH (07:54)
[2022-04-23] MEDS: CHOLECALCIFEROL 25 MCG TABLET PO SCH (07:54)
[2022-04-23] MEDS: PROPRANOLOL ER 60 MG CAPSULE PO SCH (07:54)
[2022-04-23] MEDS: LACTOBACILLUS RHAMNOSUS GG CAPSULE PO SCH (07:55)
[2022-04-23] MEDS: APIXABAN 5 MG TABLET PO SCH ×2 (07:55→21:43)
[2022-04-23] MEDS: TAMSULOSIN 0.4 MG CAPSULE PO SCH (07:56)
[2022-04-23] MEDS: CALCIUM CARBONATE CHEW 500 MG TABLET PO SCH ×2 (07:57→21:43)
[2022-04-23] MEDS: traZODone 50 MG TABLET PO SCH (21:43)
[2022-04-24] MEDS: SODIUM CHLORIDE FLUSH 0.9% 10 ML SYRINGE IVP SCH ×3 (00:10→16:54)
[2022-04-24] MEDS: ACETAMINOPHEN 325 MG TABLET PO PRN ×2 (06:56→21:36)
[2022-04-24] MEDS: INSULIN LISPRO 300 UNIT/3 ML PEN SUBQ SCH ×3 (07:57→16:53)
[2022-04-24] MEDS: PROPRANOLOL ER 60 MG CAPSULE PO SCH (08:02)
[2022-04-24] MEDS: CALCIUM CARBONATE CHEW 500 MG TABLET PO SCH ×2 (08:02→20:42)
[2022-04-24] MEDS: CHOLECALCIFEROL 25 MCG TABLET PO SCH (08:02)
[2022-04-24] MEDS: DOCUSATE SODIUM 250 MG CAPSULE PO SCH (08:03)
[2022-04-24] MEDS: polyethylene glycoL 3350 17 GM PACKET PO SCH (08:03)
[2022-04-24] MEDS: APIXABAN 5 MG TABLET PO SCH ×2 (08:03→20:42)
[2022-04-24] MEDS: TAMSULOSIN 0.4 MG CAPSULE PO SCH (08:03)
[2022-04-24] MEDS: LACTOBACILLUS RHAMNOSUS GG CAPSULE PO SCH (08:03)
[2022-04-24] MEDS: MAG HYDROX/AL HYDROX/SIMETH 30 ML UDC PO PRN (08:04)
[2022-04-24] MEDS: oxyCODONE 5 MG TABLET PO PRN (14:54)
[2022-04-24] MEDS: traZODone 50 MG TABLET PO SCH (20:42)
[2022-04-25] MEDS: ACETAMINOPHEN 325 MG TABLET PO PRN ×3 (02:08→20:37)
[2022-04-25] MEDS: SODIUM CHLORIDE FLUSH 0.9% 10 ML SYRINGE IVP SCH ×3 (02:09→17:00)
[2022-04-25] MEDS: oxyCODONE 5 MG TABLET PO PRN ×3 (06:33→16:59)
[2022-04-25] MEDS: MAG HYDROX/AL HYDROX/SIMETH 30 ML UDC PO PRN (06:34)
[2022-04-25] MEDS: INSULIN LISPRO 300 UNIT/3 ML PEN SUBQ SCH ×3 (07:51→17:00)
[2022-04-25] MEDS: polyethylene glycoL 3350 17 GM PACKET PO SCH (07:51)
[2022-04-25] MEDS: DOCUSATE SODIUM 250 MG CAPSULE PO SCH (07:51)
[2022-04-25] MEDS: TAMSULOSIN 0.4 MG CAPSULE PO SCH (07:52)
[2022-04-25] MEDS: APIXABAN 5 MG TABLET PO SCH ×2 (07:52→20:37)
[2022-04-25] MEDS: PROPRANOLOL ER 60 MG CAPSULE PO SCH (07:52)
[2022-04-25] MEDS: CHOLECALCIFEROL 25 MCG TABLET PO SCH (07:52)
[2022-04-25] MEDS: LACTOBACILLUS RHAMNOSUS GG CAPSULE PO SCH (07:52)
[2022-04-25] MEDS: CALCIUM CARBONATE CHEW 500 MG TABLET PO SCH ×2 (07:53→20:37)
[2022-04-25] MEDS: traZODone 50 MG TABLET PO SCH (20:37)
[2022-04-26] MEDS: SODIUM CHLORIDE FLUSH 0.9% 10 ML SYRINGE IVP SCH ×4 (00:34→23:45)
[2022-04-26] MEDS: ACETAMINOPHEN 325 MG TABLET PO PRN ×3 (00:37→20:20)
[2022-04-26] MEDS: MAG HYDROX/AL HYDROX/SIMETH 30 ML UDC PO PRN (02:51)
[2022-04-26] MEDS: polyethylene glycoL 3350 17 GM PACKET PO SCH (07:34)
[2022-04-26] MEDS: INSULIN LISPRO 300 UNIT/3 ML PEN SUBQ SCH ×3 (07:35→17:18)
[2022-04-26] MEDS: CHOLECALCIFEROL 25 MCG TABLET PO SCH (07:35)
[2022-04-26] MEDS: APIXABAN 5 MG TABLET PO SCH ×2 (07:36→21:44)
[2022-04-26] MEDS: DOCUSATE SODIUM 250 MG CAPSULE PO SCH (07:36)
[2022-04-26] MEDS: TAMSULOSIN 0.4 MG CAPSULE PO SCH (07:36)
[2022-04-26] MEDS: CALCIUM CARBONATE CHEW 500 MG TABLET PO SCH ×2 (07:37→21:44)
[2022-04-26] MEDS: LACTOBACILLUS RHAMNOSUS GG CAPSULE PO SCH (07:37)
[2022-04-26] MEDS: PROPRANOLOL ER 60 MG CAPSULE PO SCH (07:37)
[2022-04-26] MEDS: oxyCODONE 5 MG TABLET PO PRN (13:50)
--- NOTE | 2022-04-26 18:02 | PROVIDER PROGRESS NOTE ---
Assessment/Plan - Problem List (1) Acquired deformity of left shoulder Assessment/Plan: That was not an area of fracture concern when he was at [facility] according to the records. It was his scapula. But the deformity is there. Plain films of the left shoulder were done here on 04/20. These showed Left AC joint separation of 1.8 cm, no soft tissue calcification. PT and OT reminded staff today that the L shoulder separation still needs surgery at [facility]. Plan: I called Transfer [facility] today, spoke to Sia, and determined and confirmed that he has appointments coming up: Spine clinic appointment on 05/01/2022 at 1 PM Orthopedic trauma clinic appointment on 05/02/2022 at 11 AM I told the pt and will inform our stationary fireman/social workers to arrange transfer for these appointments and then return to this SNF here (swing bed status) (2) Urinary frequency Impression: He asked to speak to the Dr today and described this complaint, plus shaking chills. With those and a low-grade fever, I am concerned that he is developing another UTI. Plan: Will obtain UA, urine culture, blood culture. Check CBC. Will begin empiric antibiotic based on his last urine culture result which grew ESBL that was only sensitive to nitrofurantoin (Macrobid) and imipenem and tobramycin. Will start Macrobid 100 po twice daily plus probiotic twice daily. Follow CBC. If oral antibx help, will keep him in SNF (Swing bed) status. If he worsens, he will need to be admitted to Inpatient status. (3) Muscle rupture Impression: He did have a left pelvic fracture. He does not know how his body landed when it hit the ground. At this point, with time, there is not much mobility deficit he was left with (4) PTSD (post-traumatic stress disorder) Impression: This pt was having nightmares about falling off the ladder. Telepsych evaluation: 66 year old male with a history of insomnia and sleepwalking who presented to the hospital approximately about two weeks ago after he had a fall has multiple fractures now being treated for a UTI. He has had episodes the confusion at night and acting out his dreams. Very vivid nightmares. Patient was initially se rved on Seroquel per the record 12.5 milligrams PRN at bedtime to help with sleep and then it's been titrated up to 50 milligrams at bedtime. there have been documented reports of sleepwalking on Seroquel. He did not feel as though amitriptyline helped and he felt it was worsening the situation. He does take melatonin at home. Melatonin 9 to 12 milligrams at night 2 hours before bedtime has been shown to help decrease people's acting out their dreams. And to help shorten delirium. If melatonin is not available then would consider Trazodone 50 to 100 milligrams at bedtime. Third line treatment would be temazepam. As this would only be recommended for short term use. Would try to avoid ambien and other medications such as this due to his history of sleepwalking and the risk of sleepwalking. 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 CPT Codes: 57931 - Psychiatric Diagnostic Evaluation with Medical Services Treatment Plan: General: Level of Care: continue current level of care Psychiatric Clearance: Yes Observation level 1:1 needed?: No Pharmacological: d/c seroquel melatonin 9 mg po q hs if available if not then would recommend trazodoen 50-100mg po q hs Patient psychotic?No Therapy: supportive Follow up needed while in the hospital?: Yes Number of times: as needed Discussed plan with onsite bakery team member: Yes Who RN tried to contact attending and they were not available at this time Melatonin is not on formulary here. We did switch him to trazodone. Unfortunately the patient does not want to use it. He tried it 3 times here. He says it just does not work and it "freaks him out"' would rather not take it. We stopped that. He declines use of Restoril (5) Hx of multiple trauma Impression: All of the x-rays that the trauma clinic and orthopedic spine clinic requested from [facility] at his discharge summary were done. He is progressing with his rehab here Continue PT and OT rehab (6) Poor memory Impression: He needs to be reminded how and with what precautions, and where to ambulate. He is not lethargic or over-sedated with pain meds. We do not know his baseline mental status/ memory before his fall at home. He may have had TBI with that fall. (7) Left-sided chest wall pain Impression: Resolved. Left rib films done here 04/20 showed: no rib fractures. (7) Infection due to ESBL-producing Escherichia coli Impression: UTI. Patient completed iv antibiotics on April 21. - Current Meds Current Meds: Current Medications Generic Name Dose Route Start Last Admin Trade Name Freq PRN Reason Stop Dose Admin Acetaminophen 650 mg 04/05/22 12:20 04/26/22 06:45 Acetaminophen 325 Mg Tablet PO 650 mg Q4HR PRN Administration Pain 1 to 4, or Fever Al Hydroxide/Mg Hydroxide 30 ml 04/09/22 17:09 04/26/22 02:51 Mag Hydrox/Al Hydrox/Simeth 30 Ml Udc PO 30 ml Q4HR PRN Administration INDIGESTION Apixaban 5 mg 04/05/22 21:00 04/26/22 07:36 Apixaban 5 Mg Tablet PO 5 mg BID FEROZ Administration Calcium Carbonate/Glycine 500 mg 04/05/22 21:00 04/26/22 07:37 Calcium Carbonate Chew 500 Mg Tablet PO 500 mg BID FEROZ Administration Cholecalciferol 50 mcg 04/06/22 09:00 04/26/22 07:35 Cholecalciferol 25 Mcg Tablet PO 50 mcg DAILY FEROZ Administration Docusate Sodium 250 - 500 mg 04/11/22 20:54 04/26/22 07:36 Docusate Sodium 250 Mg Capsule PO 250 mg DAILY FEROZ Administration Insulin Human Lispro 3 unit 04/11/22 17:00 04/26/22 17:18 Insulin Lispro 300 Unit/3 Ml Pen SUBQ 3 unit TIDWM FEROZ Administration Lactobacillus Rhamnosus 1 cap 04/06/22 09:00 04/26/22 07:37 Lactobacillus Rhamnosus Gg Capsule PO 1 cap DAILY FEROZ Administration Oxycodone HCl 5 mg 04/05/22 12:20 04/26/22 13:50 Oxycodone 5 Mg Tablet PO 5 mg Q4HR PRN Administration Pain 5 to 7 Oxycodone HCl 10 mg 04/05/22 12:20 04/25/22 16:59 Oxycodone 5 Mg Tablet PO 5 mg Q4HR PRN Administration Pain 8 to 10 Polyethylene Glycol 17 gm 04/07/22 09:00 04/26/22 07:34 Polyethylene Glycol 3350 17 Gm Packet PO 17 gm DAILY FEROZ Administration Prochlorperazine Maleate 5 mg 04/09/22 17:10 04/11/22 14:34 Prochlorperazine 5 Mg Tablet PO 5 mg Q6HR PRN Administration Nausea / Vomiting Propranolol HCl 60 mg 04/06/22 09:00 04/26/22 07:37 Propranolol Er 60 Mg Capsule PO 60 mg DAILY FEROZ Administration Sodium Chloride 10 ml 04/23/22 01:00 04/26/22 17:18 Sodium Chloride Flush 0.9% 10 Ml Syringe IVP 10 ml 0100,0900,1700 FEROZ Administration Tamsulosin HCl 0.4 mg 04/06/22 09:00 04/26/22 07:36 Tamsulosin 0.4 Mg Capsule PO 0.4 mg DAILY FEROZ Administration Throat Lozenges 1 lozenge 04/08/22 21:45 04/15/22 22:50 Benzocaine/Menthol Lozenge MM 1 lozenge Q2HR PRN Administration Mouth Sore Pain Trazodone HCl 50 mg 04/08/22 21:00 04/25/22 20:37 Trazodone 50 Mg Tablet PO Not Given QPM FEROZ - Additional Planning My Orders: My Active Orders 04/26/22 11:37 Miscellaenous Nursing Order [RC] QSHIFT Subjective - Subjective Patient Reports: Fever (The patient has felt chills all day. As I am seeing him he is shaking. Temp currently is 37.5C), Other (For the last 2 days he has had urinary frequency he describes. He cannot remember if that was what happened when he was at [facility], before he got admitted here with ESBL urosepsis several weeks ago.) Nursing Reports: Other (Is very forgetful) Objective Vital Signs: Vital Signs - 24 hr 04/26/22 04/26/22 07:23 16:04 Temperature 36.4 C L 36.7 C Heart Rate [ 85 82 Brachial] Respiratory 18 20 Rate Blood Pressure 124/86 H 121/71 [Right Brachial artery] O2 Saturation 95 Oxygen O2 Source Room air I&O (Last 24 Hrs): Intake and Output Totals x24h 04/24/22 04/25/22 04/26/22 23:59 23:59 23:59 Intake Total 2590 3020 1262 Output Total 2500 2500 1550 Balance 90 520 -288 General: Alert, Oriented x3, Other (Having shaking chills.) HEENT: Mucous membr. moist/pink Neck: Supple, No JVD Neuro: Alert, Non Focal, Other (Poor short term memory) Cardiovascular: Regular rate Respiratory: No respiratory distress Abdomen: Soft, No tenderness Extremities: No clubbing, No edema, Other (L shoulder painful, needs to support L arm against his stomach.) - Results Results: Laboratory Results POC Whole Bld Glucose 180 mg/dL (70 - 100) H 04/26/22 16:37 Estimat Average Glucose 140 mg/dL (70-100) H 04/06/22 05:00 Hemoglobin A1c % 6.5 % (4.27-6.07) H 04/06/22 05:00 Urine Color YELLOW 04/17/22 09:15 Urine Clarity CLEAR (CLEAR) 04/17/22 09:15 Urine pH 6.0 PH (5.0-7.5) 04/17/22 09:15 Ur Specific [place] 1.020 (1.002-1.030) 04/17/22 09:15 Urine Protein NEGATIVE mg/dL (NEGATIVE) 04/17/22 09:15 Urine Glucose (UA) 100 mg/dL (NEGATIVE) H 04/17/22 09:15 Urine Ketones NEGATIVE mg/dL (NEGATIVE) 04/17/22 09:15 Urine Occult Blood TRACE[place]INTA (NEGATIVE) 04/17/22 09:15 Urine Nitrite NEGATIVE (NEGATIVE) 04/17/22 09:15 Urine Bilirubin NEGATIVE (NEGATIVE) 04/17/22 09:15 Urine Urobilinogen 0.2 (NORMAL) E.U./dL (NORMAL) 04/17/22 09:15 Ur Leukocyte Esterase NEGATIVE (NEGATIVE) 04/17/22 09:15 Urine RBC 6-10 /HPF (0-5) H 04/17/22 09:15 Urine WBC 4-5 /HPF (0-3) 04/17/22 09:15 Ur Squamous Epith Cells RARE Squamous (<= Few) 04/17/22 09:15 Urine Bacteria Rare /HPF (None Seen) 04/17/22 09:15 Urine Culture Comments NOT INDICATED 04/17/22 09:15
[2022-04-26] MEDS: traZODone 50 MG TABLET PO SCH (20:25)
[2022-04-27] MEDS: ACETAMINOPHEN 325 MG TABLET PO PRN ×3 (03:49→21:03)
[2022-04-27] MEDS: MAG HYDROX/AL HYDROX/SIMETH 30 ML UDC PO PRN (03:50)
[2022-04-27] MEDS: CALCIUM CARBONATE CHEW 500 MG TABLET PO SCH (08:02)
[2022-04-27] MEDS: INSULIN LISPRO 300 UNIT/3 ML PEN SUBQ SCH ×3 (08:02→17:01)
[2022-04-27] MEDS: CHOLECALCIFEROL 25 MCG TABLET PO SCH (08:03)
[2022-04-27] MEDS: PROPRANOLOL ER 60 MG CAPSULE PO SCH (08:03)
[2022-04-27] MEDS: DOCUSATE SODIUM 250 MG CAPSULE PO SCH (08:03)
[2022-04-27] MEDS: TAMSULOSIN 0.4 MG CAPSULE PO SCH (08:03)
[2022-04-27] MEDS: LACTOBACILLUS RHAMNOSUS GG CAPSULE PO SCH (08:03)
[2022-04-27] MEDS: APIXABAN 5 MG TABLET PO SCH ×2 (08:04→21:03)
[2022-04-27] MEDS: SODIUM CHLORIDE FLUSH 0.9% 10 ML SYRINGE IVP SCH ×2 (08:06→17:01)
[2022-04-27] MEDS: polyethylene glycoL 3350 17 GM PACKET PO SCH (08:06)
[2022-04-27] MEDS: oxyCODONE 5 MG TABLET PO PRN (10:47)
[2022-04-27] MEDS: traZODone 50 MG TABLET PO SCH (21:03)
[2022-04-28] MEDS: SODIUM CHLORIDE FLUSH 0.9% 10 ML SYRINGE IVP SCH ×4 (01:23→18:24)
[2022-04-28] MEDS: ACETAMINOPHEN 325 MG TABLET PO PRN ×4 (01:58→21:06)
[2022-04-28] MEDS: oxyCODONE 5 MG TABLET PO PRN ×2 (06:02→16:02)
[2022-04-28] MEDS: TAMSULOSIN 0.4 MG CAPSULE PO SCH (08:05)
[2022-04-28] MEDS: APIXABAN 5 MG TABLET PO SCH ×2 (08:05→21:05)
[2022-04-28] MEDS: CALCIUM CARBONATE CHEW 500 MG TABLET PO SCH ×2 (08:05→21:05)
[2022-04-28] MEDS: LACTOBACILLUS RHAMNOSUS GG CAPSULE PO SCH (08:05)
[2022-04-28] MEDS: PROPRANOLOL ER 60 MG CAPSULE PO SCH (08:05)
[2022-04-28] MEDS: DOCUSATE SODIUM 250 MG CAPSULE PO SCH (08:05)
[2022-04-28] MEDS: CHOLECALCIFEROL 25 MCG TABLET PO SCH (08:05)
[2022-04-28] MEDS: INSULIN LISPRO 300 UNIT/3 ML PEN SUBQ SCH ×3 (08:05→18:23)
[2022-04-28] MEDS: polyethylene glycoL 3350 17 GM PACKET PO SCH (08:05)
[2022-04-28 19:03] LABS: BASOPHILS % (AUTO) 0.3 %; EOSINOPHILS % (AUTO) 0.3 %; HCT - HEMATOCRIT 34.6 % (42.0-52.0); HGB - HEMOGLOBIN 11.3 g/dL (14.0-18.0); LYMPHOCYTES # (AUTO) 0.4 10^3/uL (1.5-3.5); LYMPHOCYTES % (AUTO) 3.4 %; MEAN CORPUSCULAR HEMOGLOBIN 28.8 pg (27.0-31.0); MEAN CORPUSCULAR HGB CONC 32.7 g/dL (32.0-36.0); MEAN PLATELET VOLUME 9.6 fL (7.4-11.4); MONOCYTES % (AUTO) 8.4 %; NEUTROPHILS # (AUTO) 10.2 10^3/uL (1.5-6.6); NEUTROPHILS % (AUTO) 87.1 %; PLT - PLATELET COUNT 263 10^3/uL (130-450); RED BLOOD COUNT 3.93 10^6/uL (4.70-6.10); RED CELL DISTRIBUTION WIDTH 15.2 % (12.0-15.0); WHITE BLOOD COUNT 11.7 x10^3/uL (4.8-10.8)
[2022-04-28 19:18] LABS: BILIRUBIN,URINE NEGATIVE (NEGATIVE); GLUCOSE, URINE (UA) NEGATIVE (NEGATIVE); KETONES,URINE (UA) NEGATIVE (NEGATIVE); LEUKOCYTE ESTERASE, URINE LARGE (NEGATIVE); NITRITE,URINE POSITIVE (NEGATIVE); OCCULT BLOOD,URINE LARGE (NEGATIVE); PROTEIN,URINE 30 mg/dL (NEGATIVE); UROBILINOGEN,URINE 0.2 (NORMAL) E.U./dL (NORMAL)
[2022-04-28 19:19] LABS: CLARITY,URINE CLOUDY (CLEAR)
[2022-04-28 19:43] LABS: WBC,URINE >25 /HPF (0-3)
[2022-04-28 19:44] LABS: SQUAMOUS EPITHELIAL CELL,UR RARE Squamous (<= Few)
[2022-04-28 19:45] LABS: BACTERIA,URINE Many /HPF (None Seen)
[2022-04-28] MEDS: NITROFURANTOIN MACRO 100 MG CAPSULE PO SCH (21:05)
[2022-04-28] MEDS: SACCHAROMYCES BOULARDII 250 MG CAPSULE PO SCH (21:05)
[2022-04-28] MEDS: traZODone 50 MG TABLET PO SCH (21:07)
[2022-04-29] MEDS: oxyCODONE 5 MG TABLET PO PRN ×2 (02:02→06:22)
[2022-04-29] MEDS: SODIUM CHLORIDE FLUSH 0.9% 10 ML SYRINGE IVP SCH (02:03)
[2022-04-29] MEDS: MAG HYDROX/AL HYDROX/SIMETH 30 ML UDC PO PRN (06:23)
[2022-04-29 06:42] LABS: BASOPHILS % (AUTO) 0.4 %; EOSINOPHILS % (AUTO) 0.2 %; HCT - HEMATOCRIT 36.5 % (42.0-52.0); HGB - HEMOGLOBIN 11.8 g/dL (14.0-18.0); LYMPHOCYTES # (AUTO) 0.7 10^3/uL (1.5-3.5); LYMPHOCYTES % (AUTO) 6.2 %; MEAN CORPUSCULAR HEMOGLOBIN 28.7 pg (27.0-31.0); MEAN CORPUSCULAR HGB CONC 32.3 g/dL (32.0-36.0); MEAN CORPUSCULAR VOLUME 88.8 fL (80.0-94.0); MEAN PLATELET VOLUME 9.6 fL (7.4-11.4); MONOCYTES # (AUTO) 1.2 10^3/uL (0.0-1.0); MONOCYTES % (AUTO) 10.1 %; NEUTROPHILS # (AUTO) 9.4 10^3/uL (1.5-6.6); NEUTROPHILS % (AUTO) 82.5 %; PLT - PLATELET COUNT 262 10^3/uL (130-450); RED BLOOD COUNT 4.11 10^6/uL (4.70-6.10); RED CELL DISTRIBUTION WIDTH 15.3 % (12.0-15.0); WHITE BLOOD COUNT 11.4 x10^3/uL (4.8-10.8)
[2022-04-29 07:27] VITALS: BP 119/75
--- NOTE | 2022-04-29 08:05 | Discharge Plan ---
Discharge Plan Problem Reviewed?: Yes Disposition: 02 Transfer Acute Care Hosp No Smoking: If you smoke, Please STOP! Call for help. Follow-up with: Rosario Marrero ARNP [Primary Care Provider] -
--- NOTE | 2022-04-29 08:07 | DISCHARGE SUMMARY ---
Discharge Summary Admit Date: 04/06/22 Discharge Date: 04/29/22 Discharging Provider: Dr Ariana Chacko Primary Care Provider: ALINA Marrero Discharge Disposition: 02 Transfer Acute Care Hosp - [facility] History of Present Illness: Mr. Carias is a 66 year old man who is being admitted as swing bed [facility] to complete IV antibiotic therapy for UTI. He was brought to the ED on 03/30/22 with weakness, hypotension, and confusion. UA was consistent with UTI. Urine cultures came back positive for E. coli, ESBL-producing with multiple resistances including to cephalosporins. Blood cultures have been negative to date. We are treating with IV Meropenem for 21 days with today being day 6 of treatment. He is continuing to feel better now. His urinary frequency and urgency have improved with the flomax. He states he is having trouble sleeping and only gets about an hour of sleep nightly. He is sleeping poorly due to having nightmares about his fall from his ladder two weeks ago, that resulted in multiple trauma and hospital stay at [facility] then SNF at [facility] when he developed that UTI. He was just discharged from Inpatient status at [facility] and is being admitted to SNF (Swing Bed status) at [facility] now. His pain from the fall is well-managed with oxycodone. He will have continued PT and OT rehab. - HOSPITAL COURSE Hospital Course: (1) Infection due to ESBL-producing Escherichia coli He was discharged from Inpt status and needed several weeks of iv antibiotics for treating a UTI. Patient completed iv antibiotics on April 21. (2) Hx of multiple trauma He had a fall at home that caused multiple trauma for which he was hospitali=zed at [facility]. He needed continued PT and OT rehab, which continued throughout his SNF stay for iv antibiotics and was needed after that. He was progressing with his PT and OT rehab here in Swing bed status. (3) Acquired deformity of left shoulder That was not an area of fracture concern when he was at [facility] according to the records. It was his scapula. But the deformity is there. Plain films of the left shoulder were done here on 04/20. These showed Left AC joint separation of 1.8 cm, no soft tissue calcification. He still needs surgery at [facility] for that the L shoulder separation. He has appointments for: Spine clinic appointment on 05/01/2022 at 1 PM Orthopedic trauma clinic appointment on 05/02/2022 at 11 AM (4) Muscle rupture He did have a left pelvic fracture. He does not know how his body landed when it hit the ground. There is not much mobility deficit he has been left with. (5) L sided Chest wall pain Left rib films done here 04/20 and showed no rib fractures. (6) PTSD (post-traumatic stress disorder) This pt was having nightmares about falling off the ladder. Telepsych evaluation was done: 66 year old male with a history of insomnia and sleepwalking who presented to the hospital approximately about two weeks ago after he had a fall has multiple fractures now being treated for a UTI. He has had episodes the confusion at night and acting out his dreams. Very vivid nightmares. Patient was initially served on Seroquel per the record 12.5 milligrams PRN at bedtime to help with sleep and then it's been titrated up to 50 milligrams at bedtime. there have been documented reports of sleepwalking on Seroquel. He did not feel as though amitriptyline helped and he felt it was worsening the situation. He does take melatonin at home. Melatonin 9 to 12 milligrams at night 2 hours before bedtime has been shown to help decrease people's acting out their dreams. And to help shorten delirium. If melatonin is not available then would consider Trazodone 50 to 100 milligrams at bedtime. Third line treatment would be temazepam. As this would only be recommended for short term use. Would try to avoid ambien and other medications such as this due to his history of sleepwalking and the risk of sleepwalking. 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 CPT Codes: 32552 - Psychiatric Diagnostic Evaluation with Medical Services Treatment Plan: General: Level of Care: continue current level of care Psychiatric Clearance: Yes Observation level 1:1 needed?: No Pharmacological: d/c seroquel melatonin 9 mg po q hs if available if not then would recommend trazodoen 50-100mg po q hs Patient psychotic?No Therapy: supportive Follow up needed while in the hospital?: Yes Number of times: as needed Discussed plan with onsite sales team member: Yes Who RN tried to contact attending and they were not available at this time Melatonin is not on formulary here. We did switch him to trazodone. Unfortunately the patient does not want to use it. He tried it 3 times here. He says it just does not work and it "freaks him out"' would rather not take it. We stopped that. He declines use of Restoril (7) Poor memory He needs to be reminded how and with what precautions, and where to ambulate. He is not lethargic or over-sedated with pain meds. We do not know his baseline mental status/ memory before his fall at home. He may have had TBI with that fall. (8) Urinary frequency On 04/28/2022, he c/o urinary frequency and had shaking chills. Temperature of 37.5 C was documented. Orders for CBC, urinalysis, urine culture and blood culture were placed. He was started on empiric oral Macrobid (Nitrofurantoin), since his recent ESBL E coli was sensitive to that. On 04/29/2022, the blood culture result came back positive for gram-negative bacilli. He was discharged from Swing bed. He needed admission to Inpatient status. - ALLERGIES Allergies/Adverse Reactions: Allergies Allergy/AdvReac Type Severity Reaction Status Date / Time medazepam AdvReac Hallucinati Verified 03/30/22 11:13 ons - MEDICATIONS Home Medications: Ambulatory Orders Medication Instructions Recorded Confirmed Acetaminophen [Acetaminophen Extra 1,000 mg PO Q6H 03/30/22 04/05/22 Strength] Apixaban [Eliquis] 5 mg PO BID 03/30/22 04/05/22 Bisacodyl Supp [Dulcolax Supp] 10 mg RC PRN PRN 03/30/22 04/05/22 Bismuth Subsalicylate [[place] 30 ml PO PRN PRN 03/30/22 04/05/22 Bismuth] Carboxymethylcellulose Sodium 1 drops EACHEYE PRN PRN 03/30/22 04/05/22 [Refresh Tears] Cholecalciferol [Vitamin D3] 25 mcg PO DAILY 03/30/22 04/05/22 Insulin Lispro [Humalog] 0 - 9 units SQ TID 03/30/22 04/05/22 Multivitamin W/Minerals [Theragran 1 each PO DAILY 03/30/22 04/05/22 M] Oxycodone HCl 10 mg PO .Q4-6H PRN 03/30/22 04/05/22 QUEtiapine [SEROquel] 12.5 mg PO HS PRN 03/30/22 04/05/22 Senna [Senokot] 17.2 mg PO PRN PRN 03/30/22 04/05/22 Sodium Chloride [Saline Nasal 2 spray AILYN Q2H PRN 03/30/22 04/05/22 [place]] metFORMIN [Glucophage] 500 mg PO BIDWM 03/30/22 04/05/22 oxyCODONE [Roxicodone] 5 mg PO .Q4-6H PRN 03/30/22 04/05/22 polyethylene glycoL 3350 [Miralax] 17 gm PO BID 03/30/22 04/05/22 - PHYSICAL EXAM AT DISCHARGE General Appearance: positive: No acute distress, Alert Eyes Bilateral: positive: Normal inspection, EOMI ENT: positive: ENT inspection nml, No signs of dehydration Neck: positive: Nml inspection, No JVD Respiratory: positive: No respiratory distress, Breath sounds nml Cardiovascular: positive: Regular rate & rhythm, No murmur Abdomen: positive: Non-tender, No distention Skin: positive: Warm, Dry Extremities: positive: No pedal edema, Other (L shoulder has separation deformity and is tender) Neurologic/Psychiatric: positive: Oriented x3, Motor nml - LABS Result Diagrams: 04/29/22 05:38 - FOLLOW UP Follow Up: Pt being admitted to Inpatient status today 04/29/2022. - TIME SPENT Time Spent in Discharge (Minutes): 30
[2022-04-29] MEDS: polyethylene glycoL 3350 17 GM PACKET PO SCH (08:29)
[2022-04-29] MEDS: PROPRANOLOL ER 60 MG CAPSULE PO SCH (08:29)
[2022-04-29] MEDS: CHOLECALCIFEROL 25 MCG TABLET PO SCH (08:29)
[2022-04-29] MEDS: NITROFURANTOIN MACRO 100 MG CAPSULE PO SCH (08:30)
[2022-04-29] MEDS: DOCUSATE SODIUM 250 MG CAPSULE PO SCH (08:30)
[2022-04-29] MEDS: SACCHAROMYCES BOULARDII 250 MG CAPSULE PO SCH (08:30)
[2022-04-29] MEDS: CALCIUM CARBONATE CHEW 500 MG TABLET PO SCH (08:30)
[2022-04-29] MEDS: LACTOBACILLUS RHAMNOSUS GG CAPSULE PO SCH (08:30)
[2022-04-29] MEDS: APIXABAN 5 MG TABLET PO SCH (08:31)
[2022-04-29] MEDS: TAMSULOSIN 0.4 MG CAPSULE PO SCH (08:31)
[2022-04-29] MEDS: INSULIN LISPRO 300 UNIT/3 ML PEN SUBQ SCH (08:33)
[2022-04-29] MEDS: ACETAMINOPHEN 325 MG TABLET PO PRN (09:17)
== END 2022-04-29 10:04 | disposition short-term general hospital (02) | DRG 690 ==
LOC: MS2 12:20
PROVIDERS: ADMIT Specialist; ATTEND Internal Medicine
DX: N30.00 Acute cystitis without hematuria (principal); Z16.19 Resistance to other specified beta lactam antibiotics; Z16.24 Resistance to multiple antibiotics; N13.30 Unspecified hydronephrosis; B96.89 Other specified bacterial agents as the cause of diseases classified elsewhere; B96.20 Unspecified Escherichia coli [E. coli] as the cause of diseases classified elsewhere; R35.0 Frequency of micturition; R39.15 Urgency of urination; W11.XXXD Fall on and from ladder, subsequent encounter; R07.89 Other chest pain; F43.10 Post-traumatic stress disorder, unspecified; G00-G99 Diseases of the nervous system; R41.3 Other amnesia; E11.9 Type 2 diabetes mellitus without complications; R19.7 Diarrhea, unspecified; R00.0 Tachycardia, unspecified; F41.9 Anxiety disorder, unspecified; G47.33 Obstructive sleep apnea (adult) (pediatric); S43.102D Unspecified dislocation of left acromioclavicular joint, subsequent encounter; S36.892D Contusion of other intra-abdominal organs, subsequent encounter; S32.9XXD Fracture of unspecified parts of lumbosacral spine and pelvis, subsequent encounter for fracture with routine healing; S22.49XD Multiple fractures of ribs, unspecified side, subsequent encounter for fracture with routine healing; S72.91XD Unspecified fracture of right femur, subsequent encounter for closed fracture with routine healing; S42.102D Fracture of unspecified part of scapula, left shoulder, subsequent encounter for fracture with routine healing; S32.302D Unspecified fracture of left ilium, subsequent encounter for fracture with routine healing; S32.029D Unspecified fracture of second lumbar vertebra, subsequent encounter for fracture with routine healing; S32.039D Unspecified fracture of third lumbar vertebra, subsequent encounter for fracture with routine healing; S32.049D Unspecified fracture of fourth lumbar vertebra, subsequent encounter for fracture with routine healing; S12.600D Unspecified displaced fracture of seventh cervical vertebra, subsequent encounter for fracture with routine healing; S22.019D Unspecified fracture of first thoracic vertebra, subsequent encounter for fracture with routine healing; S22.079D Unspecified fracture of T9-T10 vertebra, subsequent encounter for fracture with routine healing; Z79.01 Long term (current) use of anticoagulants; Z79.84 Long term (current) use of oral hypoglycemic drugs; Z86.711 Personal history of pulmonary embolism
CPT/HCPCS: 36415; 81001; 83036; 85025; 87040; 87086; 87150; 87181

== ENCOUNTER 2022-04-29 08:18 | Inpatient (IN) | payer MEDICARE, MEDICAID ==
--- NOTE | 2022-04-29 08:37 | HISTORY & PHYSICAL EXAMINATION ---
Chief Complaint - Chief Complaint Chief Complaint: Blood culture from 04/28/22 has turned positive History of Present Illness - Admitted From Admitted From:: Swing Bed [facility] SN[facility] - History of Present Illness HPI Comment/Other: Mr. Carias is a 66 year old man who is being admitted from swing bed status. He was brought to the ED on 03/30/22 with weakness, hypotension, and confusion. UA was consistent with UTI. Urine cultures came back positive for E. coli, ESBL- producing with multiple resistances including to cephalosporins. Blood cultures were negative. He needed IV Meropenem for 21 days, which he completed in Swing Bed status. He was having trouble sleeping and only got about an hour of sleep nightly. He was sleeping poorly due to having nightmares about his fall from his ladder several weeks ago, that resulted in multiple trauma and a hospital stay at [facility], then was sent to SNF at [facility]. His pain from the fall is well-managed with oxycodone. He was progressing with continued PT and OT rehab in Swing Bed status. Plain films of the left shoulder were done here on 04/20. These showed Left AC joint separation of 1.8 cm, no soft tissue calcification. He still needs surgery at [facility] for that the L shoulder separation. He has appointments for: Spine clinic appointment on 05/01/2022 at 1 PM and Orthopedic trauma clinic appoint ment on 05/02/2022 at 11 AM On 04/28/2022, yesterday, he c/o urinary frequency and had shaking chills. Temperature of 37.5 C was documented. Orders for CBC, urinalysis, urine culture and blood culture were placed. He was started on empiric oral Macrobid (Nitrofurantoin), since his recent ESBL E coli was sensitive to that. On 04/29/2022, the blood culture result came back positive for gram-negative bacilli. He was discharged from Swing bed today and is being admitted to Inpatient status. History - Past Medical History Cardiovascular: reports: Other Respiratory: reports: Sleep apnea, Other (Chest tubes for hemo-pneumothorax at [facility]) Neuro: reports: Other Endocrine/Autoimmune: reports: Type 2 diabetes GI: reports: Other (splenic and kidney trauma and retroperitoneal hematoma from that trauma) : reports: Other (Kidney laceration) HEENT: reports: Other (Recent L eye surgery) Psych: reports: Other Musculoskeletal: reports: Other - Past Surgical History Ortho: reports: Hip replacement - Family & Social History Family History: Mother: , Father: , Sister: Alive and Well, Brother: Alive and Well Family History Comment/Other: He is estranged from 2 brothers and 1 sister, 1 brother . He has no children. Living Situation: Alone Social History Notes: Alcohol previously 1/wk, none since trauma on 03/16/22. Never smoked cigarettes. Used marijuana when was younger. Most recently, he lived in a cabin without running water. - Substance History Use: Uses substance without health or social issues: NONE - POLST POLST Status: Full Code Meds/Allgy - Home Medications Home Medications: Ambulatory Orders Medication Instructions Recorded Confirmed Acetaminophen [Acetaminophen Extra 1,000 mg PO Q6H 03/30/22 04/05/22 Strength] Apixaban [Eliquis] 5 mg PO BID 03/30/22 04/05/22 Bisacodyl Supp [Dulcolax Supp] 10 mg RC PRN PRN 03/30/22 04/05/22 Bismuth Subsalicylate [[place] 30 ml PO PRN PRN 03/30/22 04/05/22 Bismuth] Carboxymethylcellulose Sodium 1 drops EACHEYE PRN PRN 03/30/22 04/05/22 [Refresh Tears] Cholecalciferol [Vitamin D3] 25 mcg PO DAILY 03/30/22 04/05/22 Insulin Lispro [Humalog] 0 - 9 units SQ TID 03/30/22 04/05/22 Multivitamin W/Minerals [Theragran 1 each PO DAILY 03/30/22 04/05/22 M] Oxycodone HCl 10 mg PO .Q4-6H PRN 03/30/22 04/05/22 QUEtiapine [SEROquel] 12.5 mg PO HS PRN 03/30/22 04/05/22 Senna [Senokot] 17.2 mg PO PRN PRN 03/30/22 04/05/22 Sodium Chloride [Saline Nasal 2 spray AILYN Q2H PRN 03/30/22 04/05/22 [place]] metFORMIN [Glucophage] 500 mg PO BIDWM 03/30/22 04/05/22 oxyCODONE [Roxicodone] 5 mg PO .Q4-6H PRN 03/30/22 04/05/22 polyethylene glycoL 3350 [Miralax] 17 gm PO BID 03/30/22 04/05/22 - Allergies Allergies/Adverse Reactions: Allergies Allergy/AdvReac Type Severity Reaction Status Date / Time medazepam AdvReac Hallucinati Verified 03/30/22 11:13 ons Review of Systems - Constitutional Constitutional: reports: Fever (yesterday) - Genitourinary Genitourinary: reports: Frequency - Musculoskeletal Musculoskeletal: reports: Muscle aches, Stiffness, Joint pain - Neurological Neurological: reports: Other (Poor memory) - All Other Systems All Other Systems: reports: Reviewed and negative Exam - Physical Exam General Appearance: positive: No acute distress, Alert Eyes Bilateral: positive: Normal inspection, EOMI ENT: positive: ENT inspection nml, No signs of dehydration Neck: positive: Nml inspection, No JVD Respiratory: positive: No respiratory distress, Breath sounds nml Cardiovascular: positive: Regular rate & rhythm, No murmur Abdomen: positive: Non-tender, Nml bowel sounds, No distention Skin: positive: Warm, Dry Extremities: positive: No pedal edema, Other (L shoulder tender) Neurologic/Psychiatric: positive: Oriented x3, Other (Poor memory) Conclusion/Plan - Problem List (1) Gram-negative bacteremia Conclusion/Plan: Orders for CBC, urinalysis, urine culture and blood culture were placed on 04/28/22 in Swing Bed status and he was started on empiric oral Macrobid (Nitrofurantoin), since his recent ESBL E coli was sensitive to that. Today, the blood culture result came back positive for gram-negative bacilli, thus he is being admitted to Inpatient status. Plan: Obtain a full set of labs, including Lactic acid Begin empiric IV antibiotics again using meropenem since he may have an ESBL recurrence. Await urine culture and blood culture identification and sensitivity to adjust antibiotics. Follow CBC daily. (2) Urinary tract infection Conclusion/Plan: As above in #1 Plan: Continue with antibiotics Continue with his Flomax Will do imaging of prostate, since that is likely the nidus of this infection Qualifiers: Urinary tract infection type: acute cystitis Hematuria presence: without hematuria Qualified Code(s): N30.00 - Acute cystitis without hematuria (3) Hx of multiple trauma Conclusion/Plan: This pt fell 40 feet off a ladder on 03/16/22 and sustained trauma to multiple organs, was air transferred to [facility] where he was hospitalized for 8 days. He had multiple rib fractures, apical pneumothorax, pulmonary laceration, L kidney bleed, retroperitoneal hematoma, splenic laceration, acute blood loss anemia, R femur fracture, L scapula fracture, L iliac fracture, L2 vertebral fracture, C7, T1-T9 and L2-L4 transverse process fractures, blunt cardiac trauma and pulmonary embolism, started on Eliquis. He needed chest tubes, 2 surgeries to the R femur. He then started rehab at [facility], was admitted here (for UTI), then continue rehab here in Swing Bed status until being admitted today. Plan: We will continue with oxycodone for managing pain Continue with PT and OT rehab (4) Separation of left acromioclavicular joint Conclusion/Plan: Plan: We will hope to have him be able to go to the May 01 and May 02 appointments (see HPI) Continue pain management as in Swing Bed (5) PTSD (post-traumatic stress disorder) Conclusion/Plan: This was diagnosed with a telepsych consult while he was in his recent swing bed status. Plan: Continue with the same management as when he was in swing bed status recently (6) Poor memory Conclusion/Plan: He has needed to be reminded how and with what precautions, and where to ambulate. He is not lethargic or over-sedated with pain meds. He may have had TBI with that fall. We do not know his baseline mental status/ memory before his fall at home however. Plan: Continue with reminders and cueing (7) DM type 2 (diabetes mellitus, type 2) Conclusion/Plan: Plan: We will order carb controlled diet, sliding scale insulin coverage, fingerstick glucose checks and his usual long-acting insulin (8) Hx pulmonary embolism Conclusion/Plan: Plan: We will continue his usual Eliquis. It was to continue through May 2022. - Lab Results Fish Bones: 04/29/22 09:41 04/29/22 09:41 - Other Other Results/Comments: Attestation: The patient is expected to be discharged or transferred to another facility for 96 hours: Yes.
[2022-04-29 09:49] LABS: BASOPHILS % (AUTO) 0.3 %; EOSINOPHILS % (AUTO) 0.1 %; HCT - HEMATOCRIT 34.3 % (42.0-52.0); HGB - HEMOGLOBIN 11.1 g/dL (14.0-18.0); LYMPHOCYTES # (AUTO) 0.6 10^3/uL (1.5-3.5); LYMPHOCYTES % (AUTO) 5.5 %; MEAN CORPUSCULAR HEMOGLOBIN 28.8 pg (27.0-31.0); MEAN CORPUSCULAR HGB CONC 32.4 g/dL (32.0-36.0); MEAN CORPUSCULAR VOLUME 88.9 fL (80.0-94.0); MEAN PLATELET VOLUME 9.1 fL (7.4-11.4); MONOCYTES # (AUTO) 1.1 10^3/uL (0.0-1.0); NEUTROPHILS # (AUTO) 9.4 10^3/uL (1.5-6.6); NEUTROPHILS % (AUTO) 83.6 %; PLT - PLATELET COUNT 236 10^3/uL (130-450); RED BLOOD COUNT 3.86 10^6/uL (4.70-6.10); RED CELL DISTRIBUTION WIDTH 15.3 % (12.0-15.0); WHITE BLOOD COUNT 11.2 x10^3/uL (4.8-10.8)
[2022-04-29 10:01] LABS: ALBUMIN 2.9 g/dL (3.2-5.5); ALBUMIN/GLOBULIN RATIO 0.9 (1.0-2.2); BILIRUBIN,TOTAL 0.5 mg/dL (0.2-1.0); CALCIUM 8.5 mg/dL (8.5-10.3); CREATININE 1.2 mg/dL (0.6-1.2); POTASSIUM 4.1 mmol/L (3.5-5.0); TOTAL PROTEIN 6.2 g/dL (6.7-8.2)
[2022-04-29] MEDS ORDERED: ONDANSETRON 4 MG/2 ML VIAL IVP PRN (10:41)
[2022-04-29] MEDS ORDERED: traZODone 50 MG TABLET PO PRN (11:29)
[2022-04-29] MEDS ORDERED: oxyCODONE 5 MG TABLET PO PRN (12:00)
[2022-04-29] MEDS: oxyCODONE 5 MG TABLET PO PRN ×3 (12:05→22:26)
[2022-04-29] MEDS: INSULIN LISPRO 300 UNIT/3 ML PEN SUBQ SCH ×2 (12:07→17:20)
[2022-04-29] MEDS: MEROPENEM 1 GM in SODIUM CHLORIDE 0.9% MINIBAG 100 ML IV SCH ×2 (12:32→20:56)
[2022-04-29] MEDS ORDERED: NON FORMULARY MED (Insulin Lispro 100 UNIT/ML Ml) SQ SCH (14:00)
[2022-04-29] MEDS: ACETAMINOPHEN 325 MG TABLET PO PRN ×2 (17:19→21:36)
[2022-04-29] MEDS: SACCHAROMYCES BOULARDII 250 MG CAPSULE PO SCH (17:20)
[2022-04-29] MEDS: SODIUM CHLORIDE FLUSH 0.9% 10 ML SYRINGE IVP SCH (17:20)
[2022-04-29] MEDS: MAG HYDROX/AL HYDROX/SIMETH 30 ML UDC PO PRN (18:17)
[2022-04-29] MEDS: APIXABAN 5 MG TABLET PO SCH (20:57)
[2022-04-29] MEDS: CALCIUM CARBONATE CHEW 500 MG TABLET PO SCH (20:57)
[2022-04-30] MEDS: SODIUM CHLORIDE FLUSH 0.9% 10 ML SYRINGE IVP SCH ×3 (00:45→16:53)
[2022-04-30] MEDS ORDERED: BENZONATATE 100 MG CAPSULE PO PRN (02:59)
[2022-04-30] MEDS: ACETAMINOPHEN 325 MG TABLET PO PRN ×3 (03:26→21:47)
[2022-04-30] MEDS: MEROPENEM 1 GM in SODIUM CHLORIDE 0.9% MINIBAG 100 ML IV SCH ×3 (03:43→19:49)
[2022-04-30] MEDS: MAG HYDROX/AL HYDROX/SIMETH 30 ML UDC PO PRN (04:40)
[2022-04-30 06:03] LABS: BASOPHILS % (AUTO) 0.2 %; EOSINOPHILS % (AUTO) 0.1 %; HCT - HEMATOCRIT 33.4 % (42.0-52.0); HGB - HEMOGLOBIN 11.1 g/dL (14.0-18.0); LYMPHOCYTES # (AUTO) 0.4 10^3/uL (1.5-3.5); MEAN CORPUSCULAR HEMOGLOBIN 28.9 pg (27.0-31.0); MEAN CORPUSCULAR HGB CONC 33.2 g/dL (32.0-36.0); MEAN PLATELET VOLUME 9.9 fL (7.4-11.4); MONOCYTES % (AUTO) 9.4 %; NEUTROPHILS # (AUTO) 8.9 10^3/uL (1.5-6.6); NEUTROPHILS % (AUTO) 85.5 %; PLT - PLATELET COUNT 205 10^3/uL (130-450); RED BLOOD COUNT 3.84 10^6/uL (4.70-6.10); WHITE BLOOD COUNT 10.3 x10^3/uL (4.8-10.8)
[2022-04-30 06:11] LABS: CALCIUM 8.2 mg/dL (8.5-10.3); CREATININE 0.9 mg/dL (0.6-1.2); MAGNESIUM 1.6 mg/dL (1.7-2.8); POTASSIUM 3.9 mmol/L (3.5-5.0)
[2022-04-30] MEDS: oxyCODONE 5 MG TABLET PO PRN ×2 (07:39→14:06)
[2022-04-30] MEDS: INSULIN LISPRO 300 UNIT/3 ML PEN SUBQ SCH ×3 (07:55→16:52)
--- NOTE | 2022-04-30 08:00 | PROVIDER PROGRESS NOTE ---
Assessment/Plan - Problem List (1) E coli bacteremia Assessment/Plan: The blood culture result came back positive for E coli, but sensitivities are not back yet. His L.A. was normal. WBC was elevated Plan: Continue empiric IV antibiotics again using meropenem since this is likely an ESBL producinh E coli in his blood, from the urine Await urine culture and blood culture identification and sensitivity to adjust antibiotics. Follow CBC daily. (2) ESBL producing E coli Urinary tract infection Conclusion/Plan: Urine cx grew the same E coli that he had 3 weeks ago and was treated then with Meropenam for 21 days. It has the same sensitivity profile. This indicates there is a nidus somewhere or that treatment was not long enough. CT abd/pelvis was completed and shows no prostate abnormality, but he has bilateral renal stranding c/w bilateral hydronephrosis. Plan: Continue with antibiotics Continue with his Flomax Will try to call ID at to discuss best management Qualifiers: Urinary tract infection type: acute cystitis Hematuria presence: without hematuria Qualified Code(s): N30.00 - Acute cystitis without hematuria (3) Hx of multiple trauma Conclusion/Plan: This pt fell 40 feet off a ladder on 03/16/22 and sustained trauma to multiple organs, was air transferred to [facility] where he was hospitalized for 8 days. He had multiple rib fractures, apical pneumothorax, pulmonary laceration, L kidney bleed, retroperitoneal hematoma, splenic laceration, acute blood loss anemia, R femur fracture, L scapula fracture, L iliac fracture, L2 vertebral fracture, C7, T1-T9 and L2-L4 transverse process fractures, blunt cardiac trauma and pulmonary embolism, started on Eliquis. He needed chest tubes, 2 surgeries to the R femur. He then started rehab at [facility], was admitted here (for UTI), then continue rehab here in Swing Bed status until being admitted today. Plan: We will continue with oxycodone for managing pain Continue with PT and OT rehab (4) Separation of left acromioclavicular joint Conclusion/Plan: Plan: We will hope to have him be able to go to the May 01 and May 02 appointments (see HPI) Continue pain management as in Swing Bed. He still needs surgery at [facility] for the L shoulder separation. He has appointments for: Spine clinic appointment on 05/01/2022 at 1 PM and Orthopedic trauma clinic appointment on 05/02/2022 at 11 AM. It is unlikely that he will attend these, given the bacteremia. (5) PTSD (post-traumatic stress disorder) Conclusion/Plan: This was diagnosed with a telepsych consult while he was in his recent swing bed status. Plan: Continue with the same management as when he was in swing bed status recently (6) Poor memory Conclusion/Plan: He has needed to be reminded how and with what precautions, and where to ambulate. He is not lethargic or over-sedated with pain meds. He may have had TBI with that fall. We do not know his baseline mental status/ memory before his fall at home however. Plan: Continue with reminders and cueing (7) DM type 2 (diabetes mellitus, type 2) Conclusion/Plan: Plan: We will order carb controlled diet, sliding scale insulin coverage, fingerstick glucose checks and his usual long-acting insulin (8) Hx pulmonary embolism Conclusion/Plan: Plan: We will continue his usual Eliquis. It was to continue through May 2022. - Current Meds Current Meds: Current Medications Generic Name Dose Route Start Last Admin Trade Name Freq PRN Reason Stop Dose Admin Acetaminophen 650 mg 04/29/22 10:41 04/30/22 03:26 Acetaminophen 325 Mg Tablet PO 650 mg Q4HR PRN Administration Pain 1 to 4, or Fever Acetaminophen 650 mg 04/29/22 11:29 04/29/22 21:36 Acetaminophen 325 Mg Tablet PO 650 mg Q4H PRN Administration PRN PAIN &/OR FEVER Al Hydroxide/Mg Hydroxide 30 ml 04/29/22 11:29 04/30/22 04:40 Mag Hydrox/Al Hydrox/Simeth 30 Ml Udc PO 30 ml Q4H PRN Administration Heartburn Apixaban 5 mg 04/29/22 21:00 04/29/22 20:57 Apixaban 5 Mg Tablet PO 5 mg BID FEROZ Administration Calcium Carbonate/Glycine 500 mg 04/29/22 21:00 04/29/22 20:57 Calcium Carbonate Chew 500 Mg Tablet PO 500 mg BID FEROZ Administration Meropenem 1 gm/ Sodium 100 mls @ 200 mls/hr 04/29/22 12:00 04/30/22 03:43 Chloride IV 200 mls/hr Q8H FEROZ Administration Insulin Human Lispro 3 unit 04/29/22 12:00 04/30/22 07:55 Insulin Lispro 300 Unit/3 Ml Pen SUBQ 3 unit TIDWM FEROZ Administration Oxycodone HCl 5 mg 04/29/22 11:29 04/30/22 07:39 Oxycodone 5 Mg Tablet PO 5 mg Q4H PRN Administration PAIN 5-7 Saccharomyces Boulardii 250 mg 04/29/22 17:00 04/29/22 17:20 Saccharomyces Boulardii 250 Mg Capsule PO 250 mg BIDWM FEROZ Administration Sodium Chloride 10 ml 04/29/22 17:00 04/30/22 00:45 Sodium Chloride Flush 0.9% 10 Ml Syringe IVP Not Given 0100,0900,1700 FEROZ - Lab Result Fish Bone Diagrams: 04/30/22 05:35 04/30/22 05:35 - Additional Planning My Orders: My Active Orders 04/29/22 10:41 Vital Signs [RC] Q4HR Acetaminophen [Tylenol] 650 mg PO Q4HR PRN Ondansetron Inj [Zofran Inj] 4 mg IVP Q6HR PRN Sodium Chloride Flush 0.9% [Normal Saline Flush 0.9%] 10 ml IVP PRN PRN 04/29/22 10:42 Activity Orders [RC] Q2HR IO [RC] IOSHIFT Initiate Bowel Care Protocol [RC] .protocol Initiate Line Care Protocol [RC] QSHIFT Initiate Personal Care Protoco [RC] .protocol Code Status [OTHERS] Routine Condition of Patient [OTHERS] Routine DVT Prophylaxis [OTHERS] Routine 04/29/22 10:59 Blood Glucose Checks - Eating [RC] 0800,1200,1700,2100 Initiate Hypoglycemia Protocol [RC] .protocol 04/29/22 Lunch Carb-controlled Diet [DIET] 04/29/22 11:29 Acetaminophen [Tylenol] 650 mg PO Q4H PRN Mag Hydrox/Al Hydrox/Simeth [Mylanta Plus] 30 ml PO Q4H PRN oxyCODONE [Roxicodone] 5 mg PO Q4H PRN traZODone [Desyrel] 50 mg PO HS PRN 04/29/22 12:00 Insulin Lispro [Humalog Kwikpen U-100] 3 unit SUBQ TIDWM Meropenem [Merrem] 1 gm Sodium Chloride 0.9% Minibag [Normal Saline 0.9% Minibag] 100 ml IV Q8H oxyCODONE [Roxicodone] 10 mg PO Q4H PRN 04/29/22 17:00 Saccharomyces Boulardii [Florastor] 250 mg PO BIDWM Sodium Chloride Flush 0.9% [Normal Saline Flush 0.9%] 10 ml IVP 0100,0900,1700 04/29/22 17:55 CULTURE, BLOOD #1 [RM] Stat 04/29/22 18:00 CULTURE, BLOOD #2 [RM] Stat 04/29/22 21:00 Apixaban [Eliquis] 5 mg PO BID Calcium Carbonate [Tums] 500 mg PO BID 04/30/22 08:00 Magnesium Oxide [Mag Ox] 400 mg PO DAILYWM Multivitamin W/Minerals [Theragran M] 1 tab PO DAILYWM NS 0.9% @ 83.333 mls/hr Sodium Chloride 0.9% [Normal Saline 0.9%] 1,000 ml IV 83.333 mls/hr 04/30/22 09:00 Cholecalciferol [Vitamin D3] 25 mcg PO DAILY Propranolol ER [Inderal LA] 60 mg PO DAILY Tamsulosin [Flomax] 0.4 mg PO DAILY polyethylene glycoL 3350 [Miralax] 17 gm PO DAILY Subjective - Subjective Patient Reports: Fever (Feels "out of sorts", has no appetite, still feels cold, but no more shaking chills.), Pain Objective Vital Signs: Vital Signs - 24 hr 04/29/22 04/29/22 04/29/22 12:42 17:00 18:40 Temperature 37.4 C 39.2 C H 37.2 C Heart Rate [ 105 H 102 H Brachial] Respiratory 20 20 Rate Blood Pressure 137/77 H 156/78 H [Right Brachial artery] O2 Saturation 95 95 04/29/22 04/30/22 04/30/22 19:56 01:00 05:00 Temperature 37.0 C 37.2 C 37.1 C Heart Rate [ 89 89 91 Brachial] Respiratory 20 18 16 Rate Blood Pressure 107/65 97/55 L 93/72 [Right Brachial artery] O2 Saturation 93 95 96 04/30/22 07:28 Temperature 37.0 C Heart Rate [ 92 Brachial] Respiratory 18 Rate Blood Pressure 104/65 [Right Brachial artery] O2 Saturation 95 Oxygen O2 Source Room air I&O (Last 24 Hrs): Intake and Output Totals x24h 04/28/22 04/29/22 04/30/22 23:59 23:59 23:59 Intake Total 1040 Output Total 1950 550 Balance -910 -550 General: Alert, Oriented x3 HEENT: Mucous membr. moist/pink Neck: Supple, No JVD Neuro: Alert, Non Focal, Other (Poor memory) Cardiovascular: Regular rate Respiratory: No respiratory distress Abdomen: Normal bowel sounds, Soft Extremities: No clubbing, No edema, Other (L shoulder pain and holds L arm along abd, walks with most of weight on L leg due to R hip pain.) - Results Results: Laboratory Results WBC 10.3 x10^3/uL (4.8-10.8) 04/30/22 05:35 RBC 3.84 10^6/uL (4.70-6.10) L 04/30/22 05:35 Hgb 11.1 g/dL (14.0-18.0) L 04/30/22 05:35 Hct 33.4 % (42.0-52.0) L 04/30/22 05:35 MCV 87.0 fL (80.0-94.0) 04/30/22 05:35 MCH 28.9 pg (27.0-31.0) 04/30/22 05:35 MCHC 33.2 g/dL (32.0-36.0) 04/30/22 05:35 RDW 15.0 % (12.0-15.0) 04/30/22 05:35 Plt Count 205 10^3/uL (130-450) 04/30/22 05:35 MPV 9.9 fL (7.4-11.4) 04/30/22 05:35 Neut # (Auto) 8.9 10^3/uL (1.5-6.6) H 04/30/22 05:35 Lymph # (Auto) 0.4 10^3/uL (1.5-3.5) L 04/30/22 05:35 [place] # (Auto) 1.0 10^3/uL (0.0-1.0) 04/30/22 05:35 Eos # (Auto) 0.0 10^3/uL (0.0-0.7) 04/30/22 05:35 Baso # (Auto) 0.0 10^3/uL (0.0-0.1) 04/30/22 05:35 Absolute Nucleated RBC 0.00 x10^3/uL 04/30/22 05:35 Nucleated RBC % 0.0 /100WBC 04/30/22 05:35 Sodium 131 mmol/L (135-145) L 04/30/22 05:35 Potassium 3.9 mmol/L (3.5-5.0) 04/30/22 05:35 Chloride 99 mmol/L (101-111) L 04/30/22 05:35 Carbon Dioxide 24 mmol/L (21-32) 04/30/22 05:35 Anion Gap 8.0 (6-13) 04/30/22 05:35 BUN 19 mg/dL (6-20) 04/30/22 05:35 Creatinine 0.9 mg/dL (0.6-1.2) 04/30/22 05:35 Estimated GFR (MDRD) 84 (>89) L 04/30/22 05:35 Glucose 207 mg/dL (70-100) H 04/30/22 05:35 POC Whole Bld Glucose 282 mg/dL (70 - 100) H 04/30/22 07:24 Lactic Acid 2.1 mmol/L (0.5-2.2) 04/29/22 09:41 Calcium 8.2 mg/dL (8.5-10.3) L 04/30/22 05:35 Magnesium 1.6 mg/dL (1.7-2.8) L 04/30/22 05:35 Total Bilirubin 0.5 mg/dL (0.2-1.0) 04/29/22 09:41 AST 16 IU/L (10-42) 04/29/22 09:41 ALT 17 IU/L (10-60) 04/29/22 09:41 Alkaline Phosphatase 193 IU/L (42-121) H 04/29/22 09:41 Total Protein 6.2 g/dL (6.7-8.2) L 04/29/22 09:41 Albumin 2.9 g/dL (3.2-5.5) L 04/29/22 09:41 Globulin 3.3 g/dL (2.1-4.2) 04/29/22 09:41 Albumin/Globulin Ratio 0.9 (1.0-2.2) L 04/29/22 09:41
[2022-04-30] MEDS: PROPRANOLOL ER 60 MG CAPSULE PO SCH ×2 (08:07→08:08)
[2022-04-30] MEDS: polyethylene glycoL 3350 17 GM PACKET PO SCH (08:07)
[2022-04-30] MEDS: CALCIUM CARBONATE CHEW 500 MG TABLET PO SCH ×2 (08:07→21:47)
[2022-04-30] MEDS: TAMSULOSIN 0.4 MG CAPSULE PO SCH (08:08)
[2022-04-30] MEDS: SACCHAROMYCES BOULARDII 250 MG CAPSULE PO SCH ×2 (08:08→16:53)
[2022-04-30] MEDS: APIXABAN 5 MG TABLET PO SCH ×2 (08:08→21:46)
[2022-04-30] MEDS: MULTIVITAMIN W/MINERALS TABLET PO SCH (08:08)
[2022-04-30] MEDS: CHOLECALCIFEROL 25 MCG TABLET PO SCH (08:09)
[2022-04-30] MEDS: SODIUM CHLORIDE 0.9% 1,000 ML IV SCH ×2 (08:16→21:47)
[2022-04-30] MEDS: MAGNESIUM OXIDE 400 MG TABLET PO SCH (10:05)
--- NOTE | 2022-04-30 11:07 | CT Report ---
PROCEDURE: ABDOMEN/PELVIS WO INDICATIONS: Recurrence ESBL Ecoli UTI, now w/ Ecoli bacteremia TECHNIQUE: Noncontrast 5 mm thick sections acquired from the diaphragms to the symphysis. 5 mm coronal and sagi ttal reformats were then performed. For radiation dose reduction, the following was used: automated exposure control, adjustment of mA and/or kV according to patient size. COMPARISON: 03/30/2022 FINDINGS: Image quality: Excellent. ABDOMEN: Lung bases: Lung bases are clear. Heart size is normal. Solid organs: Liver and spleen are normal in size. Gallbladder demonstrates gas within its lumen an d there is biliary gas is seen. Pancreas is normal in contours. No adrenal nodules. Bilateral nonobstructing kidney stones are again seen. There is perinephric fasting seen on both side s. Mild bilateral hydronephrosis is seen, which is improved compared to the prior. Peritoneum and bowel: Unenhanced bowel loops demonstrate normal wall thickness and caliber. No free fluid or air. A normal appendix is incidentally noted. Diverticulosis can be seen, without armida f indings of active diverticulitis. Focus of fat with a hyperdense rim can be seen involving the left l ower quadrant (series 3 image 88), which is stable from the prior. Nodes and vessels: No retroperitoneal or mesenteric adenopathy by size criteria. Aorta and inferior vena cava are normal in caliber. Miscellaneous: There is a fat-containing periumbilical hernia. PELVIS: Genitourinary: Bladder wall thickness is normal. Miscellaneous: No inguinal hernias or adenopathy. Bones: There is a fracture of the left ninth transverse process. Subacute fractures are seen involv ing the left posterior medial 10th, 11th, and 12th ribs. There is a left iliac wing fracture. No suspicious bony lesions. No vertebral body compression fractures. Postoperative changes of the r ight proximal femur can be seen. IMPRESSION: Bilateral nonobstructing kidney stones are seen. There is mild bilateral hydronephrosis seen, which is improved compared to the prior. Fractures of the left T9 transverse process and the left posterior medial ribs can be seen. Biliary gas is seen, including gas within the gallbladder lumen. Please correlate with patient histor y. Additional findings: Fat-containing periumbilical hernia Normal appendix Diverticulosis, without findings of active diverticulitis. Left lower quadrant focus of fat with a hyperdense rim Left iliac wing fracture Postoperative change of the right proximal femur Reviewed by: Frankie Starkey MD on 04/30/2022 10:05 AM LINDA Approved by: Frankie Starkey MD on 04/30/2022 10:05 AM [place] Station ID: [id number]
[2022-05-01] MEDS: oxyCODONE 5 MG TABLET PO PRN ×2 (00:10→10:24)
[2022-05-01] MEDS ORDERED: BENZOCAINE/MENTHOL LOZENGE MM PRN (00:15)
[2022-05-01] MEDS: SODIUM CHLORIDE FLUSH 0.9% 10 ML SYRINGE IVP SCH ×4 (01:07→23:49)
[2022-05-01] MEDS: MAG HYDROX/AL HYDROX/SIMETH 30 ML UDC PO PRN ×2 (01:13→05:26)
[2022-05-01] MEDS: ACETAMINOPHEN 325 MG TABLET PO PRN ×4 (03:37→23:48)
[2022-05-01] MEDS: MEROPENEM 1 GM in SODIUM CHLORIDE 0.9% MINIBAG 100 ML IV SCH ×3 (04:30→20:13)
[2022-05-01 07:25] LABS: CALCIUM 8.5 mg/dL (8.5-10.3); CREATININE 0.9 mg/dL (0.6-1.2); POTASSIUM 3.9 mmol/L (3.5-5.0)
[2022-05-01 07:39] LABS: BASOPHILS % (AUTO) 0.5 %; EOSINOPHILS # (AUTO) 0.1 10^3/uL (0.0-0.7); EOSINOPHILS % (AUTO) 0.8 %; HCT - HEMATOCRIT 35.5 % (42.0-52.0); HGB - HEMOGLOBIN 11.6 g/dL (14.0-18.0); LYMPHOCYTES # (AUTO) 0.7 10^3/uL (1.5-3.5); MEAN CORPUSCULAR HEMOGLOBIN 28.5 pg (27.0-31.0); MEAN CORPUSCULAR HGB CONC 32.7 g/dL (32.0-36.0); MEAN CORPUSCULAR VOLUME 87.2 fL (80.0-94.0); MEAN PLATELET VOLUME 9.8 fL (7.4-11.4); MONOCYTES # (AUTO) 0.8 10^3/uL (0.0-1.0); MONOCYTES % (AUTO) 13.8 %; NEUTROPHILS # (AUTO) 4.4 10^3/uL (1.5-6.6); NEUTROPHILS % (AUTO) 73.2 %; PLT - PLATELET COUNT 224 10^3/uL (130-450); RED BLOOD COUNT 4.07 10^6/uL (4.70-6.10); RED CELL DISTRIBUTION WIDTH 14.8 % (12.0-15.0)
[2022-05-01] MEDS: CALCIUM CARBONATE CHEW 500 MG TABLET PO SCH ×2 (08:44→20:13)
[2022-05-01] MEDS: INSULIN LISPRO 300 UNIT/3 ML PEN SUBQ SCH ×3 (08:44→17:15)
[2022-05-01] MEDS: CHOLECALCIFEROL 25 MCG TABLET PO SCH (08:45)
[2022-05-01] MEDS: polyethylene glycoL 3350 17 GM PACKET PO SCH (08:45)
[2022-05-01] MEDS: TAMSULOSIN 0.4 MG CAPSULE PO SCH (08:45)
[2022-05-01] MEDS: MAGNESIUM OXIDE 400 MG TABLET PO SCH (08:45)
[2022-05-01] MEDS: SACCHAROMYCES BOULARDII 250 MG CAPSULE PO SCH ×2 (08:45→17:14)
[2022-05-01] MEDS: APIXABAN 5 MG TABLET PO SCH ×2 (08:45→20:13)
[2022-05-01] MEDS: MULTIVITAMIN W/MINERALS TABLET PO SCH (08:45)
[2022-05-01] MEDS: PROPRANOLOL ER 60 MG CAPSULE PO SCH (08:50)
--- NOTE | 2022-05-01 16:00 | PROVIDER PROGRESS NOTE ---
Assessment/Plan - Problem List (1) E coli bacteremia Assessment/Plan: His (+) blood cx has now been identified as ESBL producing E. coli bacteremia and the biogram is the same as his urine E coli, and has the same biogram as the bacteria he had 1 month ago on urine cx, that got treated with 21 days of Meram. His L.A. was normal. WBC was elevated when he had the fever and is improving. I contacted ID at today 05/01, and spoke to Dr. Simon. We reviewed his entire case going back to his presentation in February when he fell and had trauma. Dr Simon said the prior antibx management and the current antibx management is correct, using Meropenem. She would call this a complex UTI and give it at least 14 days of IV antibiotics, possibly [address] Simon was able to look at the CT IV Pyelogram that he had when he was in [facility] and when he needed a Urology consult. That CT IVP showed bilateral stones that were nonobstructing, a grade 4 laceration of his left kidney, a capsular hematoma and collecting system injury. In the Urology consult they commented on urine leaking into his kidney and said nothing more needs to be done currently. ID today wondered if the bilateral stones could be harboring bacteria and recommended we speak to Urology. Plan: Continue IV antibiotics again using meropenem. ID recommended that we speak to the Urologist therefore I have asked for a Urology center lead consultant at [facility] to call me back, and I received no call back today. I told the patient about the ID recommendations today. (2) ESBL producing E coli infection Conclusion/Plan: Urine cx grew the same E coli that he had 4 weeks ago and was treated then with Meropenam for 21 days. It has the same sensitivity profile. This likely points to there being a nidus somewhere, since ID said today that we had treated the last ESBL E coli infection long enough. CT abd/pelvis was completed and showed no prostate abnormality, but he has laila ateral renal stranding c/w bilateral hydronephrosis. Again the bilateral non- obstructing stones are seen. Plan: Continue with antibiotics Continue with his Flomax Will try to discuss with Urology at regarding best management (3) Bilateral pyelonephritis/Complex UTI Conclusion/Plan: As in #1 and #2 (4) Kidney stones, bilateral Conclusion/Plan: Today I discussed with the patient everything that ID recommended and that we hope to speak to Urology. I also reviewed his CT pelvis results from yesterday that show that the kidney laceration and hematoma of the kidney have healed, and that he currently has bilateral, non-obstructing kidney stones. He then shared with me that he has had kidney stones for many years, and has once had cystoscopy to remove a large stone on the right side that had blocked his ureter. Then he shared with me that he passed a kidney stone here, about 1 week ago and saved it into a specimen cup. The cup is near his bedside. I looked at the specimen: it is a light brown-caro, irregular shaped stone, smooth, approximately 2 cm x 1cm x 1cm. Plan: Will order strain all urine. If there is a new stone we will send that off for culture, to see if it grows ESBL-producing E coli (5) Hx of multiple trauma Conclusion/Plan: This pt fell 40 feet off a ladder on 03/16/22 and sustained trauma to multiple organs, was air transferred to [facility] where he was hospitalized for 8 days. He had multiple rib fractures, apical pneumothorax, pulmonary laceration, L kidney bleed, retroperitoneal hematoma, splenic laceration, acute blood loss anemia, R femur fracture, L scapula fracture, L iliac fracture, L2 vertebral fracture, C7, T1-T9 and L2-L4 transverse process fractures, blunt cardiac trauma and pulmonary embolism, started on Eliquis. He needed chest tubes, 2 surgeries to the R femur. He then started rehab at [facility], but was admitted here (for UTI), then was here in Swing Bed for finishing iv antibx and for continued rehab, until being re-admitted here on 04/29 to Inpt status for bacteremia treatment. Plan: We will continue with oxycodone for managing pain New PT and OT evals will be re-ordered today, in his new Inpt status (6) Separation of left acromioclavicular joint Conclusion/Plan: Plan: We had hoped to have him be able to go to the May 01 and May 02 appointments (see HPI) Continue pain management as in Swing Bed. He still needs surgery at [facility] for the L shoulder separation. He had appointments for: Spine clinic appointment on 05/01/2022 at 1 PM and Orthopedic trauma clinic appointment on 05/02/2022 at 11 AM. It is unlikely that he will attend these, given the bacteremia. They need to be rescheduled. (7) PTSD (post-traumatic stress disorder) Conclusion/Plan: This was diagnosed with a telepsych consult while he was in his recent Swing bed status. Plan: Continue with the same management as when he was in swing bed status recently (8) Poor memory Conclusion/Plan: He has needed to be reminded how and with what precautions, and where to ambulate. He is not lethargic or over-sedated with pain meds. He may have had TBI with that fall. We do not know his baseline mental status/ memory before his fall at home, however. Also, when he was febrile 04/29 and 04/30, he was confused, and today 05/01 he has no memory of those past 2 days. Plan: Continue with reminders and cueing (9) DM type 2 (diabetes mellitus, type 2) Conclusion/Plan: Plan: We ordered carb controlled diet, Hypoglycemia protocol, sliding scale insulin coverage, fingerstick glucose checks and his usual long-acting insulin (10) Hx pulmonary embolism Conclusion/Plan: Plan: We are continuing his usual Eliquis. It was to continue through May 2022. - Current Meds Current Meds: Current Medications Generic Name Dose Route Start Last Admin Trade Name Ochoa PRN Reason Stop Dose Admin Acetaminophen 650 mg 04/29/22 10:41 05/01/22 13:40 Acetaminophen 325 Mg Tablet PO 650 mg Q4HR PRN Administration Pain 1 to 4, or Fever Acetaminophen 650 mg 04/29/22 11:29 04/29/22 21:36 Acetaminophen 325 Mg Tablet PO 650 mg Q4H PRN Administration PRN PAIN &/OR FEVER Al Hydroxide/Mg Hydroxide 30 ml 04/29/22 11:29 05/01/22 05:26 Mag Hydrox/Al Hydrox/Simeth 30 Ml Udc PO 30 ml Q4H PRN Administration Heartburn Apixaban 5 mg 04/29/22 21:00 05/01/22 08:45 Apixaban 5 Mg Tablet PO 5 mg BID FEROZ Administration Calcium Carbonate/Glycine 500 mg 04/29/22 21:00 05/01/22 08:44 Calcium Carbonate Chew 500 Mg Tablet PO 500 mg BID FEROZ Administration Cholecalciferol 25 mcg 04/30/22 09:00 05/01/22 08:45 Cholecalciferol 25 Mcg Tablet PO 25 mcg DAILY FEROZ Administration Meropenem 1 gm/ Sodium 100 mls @ 200 mls/hr 04/29/22 12:00 05/01/22 12:27 Chloride IV Infused Q8H FEROZ Infusion Insulin Human Lispro 3 unit 04/29/22 12:00 05/01/22 11:56 Insulin Lispro 300 Unit/3 Ml Pen SUBQ 3 unit TIDWM [facility] Administration Magnesium Oxide 400 mg 04/30/22 08:00 05/01/22 08:45 Magnesium Oxide 400 Mg Tablet PO 05/02/22 05:00 400 mg DAILYWM [facility] Administration Multivitamins/Minerals 1 tab 04/30/22 08:00 05/01/22 08:45 Multivitamin W/Minerals Tablet PO 1 tab DAILYWM FEROZ Administration Oxycodone HCl 5 mg 04/29/22 11:29 05/01/22 10:24 Oxycodone 5 Mg Tablet PO 5 mg Q4H PRN Administration PAIN 5-7 Polyethylene Glycol 17 gm 04/30/22 09:00 05/01/22 08:45 Polyethylene Glycol 3350 17 Gm Packet PO 17 gm DAILY [facility] Administration Propranolol HCl 60 mg 05/01/22 09:00 05/01/22 08:50 Propranolol Er 60 Mg Capsule PO 60 mg DAILY [facility] Administration Saccharomyces Boulardii 250 mg 04/29/22 17:00 05/01/22 08:45 Saccharomyces Boulardii 250 Mg Capsule PO 250 mg BIDWM FEROZ Administration Sodium Chloride 10 ml 04/29/22 17:00 05/01/22 08:46 Sodium Chloride Flush 0.9% 10 Ml Syringe IVP Not Given 0100,0900,1700 [facility] Tamsulosin HCl 0.4 mg 04/30/22 09:00 05/01/22 08:45 Tamsulosin 0.4 Mg Capsule PO 0.4 mg DAILY [facility] Administration Throat Lozenges 1 lozenge 05/01/22 00:15 05/01/22 01:08 Benzocaine/Menthol Lozenge MM 1 lozenge Q2HR PRN Administration Throat pain - Lab Result Fish Bone Diagrams: 05/01/22 06:47 05/01/22 06:47 - Additional Planning My Orders: My Active Orders 05/01/22 Evaluate and Treat OT [OT] Routine Evaluate and Treat PT [PT] Routine 05/01/22 00:15 Benzocaine/Menthol [Cepacol] 1 lozenge MM Q2HR PRN 05/01/22 09:00 Propranolol ER [Inderal LA] 60 mg PO DAILY 05/01/22 11:46 Infection Precautions [RC] QSHIFT 05/02/22 05:00 BMP - BASIC METABOLIC PANEL [CHEM] DAILYLAB CBC - COMP BLD CT W/AUTO DIFF [HEME] DAILYLAB 05/03/22 05:00 BMP - BASIC METABOLIC PANEL [CHEM] DAILYLAB CBC - COMP BLD CT W/AUTO DIFF [HEME] DAILYLAB 05/04/22 05:00 BMP - BASIC METABOLIC PANEL [CHEM] DAILYLAB CBC - COMP BLD CT W/AUTO DIFF [HEME] DAILYLAB 05/05/22 05:00 BMP - BASIC METABOLIC PANEL [CHEM] DAILYLAB CBC - COMP BLD CT W/AUTO DIFF [HEME] DAILYLAB Subjective - Subjective Patient Reports: Resting Comfortably, No Complaints Objective Vital Signs: Vital Signs - 24 hr 04/30/22 04/30/22 05/01/22 17:00 19:34 01:00 Temperature 36.9 C 37.6 C 37.2 C Heart Rate [ 75 93 83 Brachial] Respiratory 20 20 20 Rate Blood Pressure 120/68 [Left Brachial artery] Blood Pressure 104/65 125/70 [Right Brachial artery] O2 Saturation 96 94 92 05/01/22 05/01/22 05/01/22 05:00 07:35 11:13 Temperature 37 C 37.4 C 36.6 C Heart Rate [ 85 82 81 Brachial] Respiratory 20 18 18 Rate Blood Pressure 121/73 [Left Brachial artery] Blood Pressure 115/75 124/80 [Right Brachial artery] O2 Saturation 92 92 95 Oxygen O2 Source Room air I&O (Last 24 Hrs): Intake and Output Totals x24h 04/29/22 04/30/22 05/01/22 23:59 23:59 23:59 Intake Total 1040 3110 2160 Output Total 1950 2350 2350 Balance -910 760 -190 General: Alert, Oriented x3 HEENT: EOMI, Mucous membr. moist/pink Neuro: Alert, Non Focal Cardiovascular: Regular rate, No murmurs Respiratory: No respiratory distress, Breath sounds nml Abdomen: Normal bowel sounds, Soft Extremities: No clubbing, No edema, Other (L shoulder deformity) - Results Results: Laboratory Results WBC 6.0 x10^3/uL (4.8-10.8) 05/01/22 06:47 RBC 4.07 10^6/uL (4.70-6.10) L 05/01/22 06:47 Hgb 11.6 g/dL (14.0-18.0) L 05/01/22 06:47 Hct 35.5 % (42.0-52.0) L 05/01/22 06:47 MCV 87.2 fL (80.0-94.0) 05/01/22 06:47 MCH 28.5 pg (27.0-31.0) 05/01/22 06:47 MCHC 32.7 g/dL (32.0-36.0) 05/01/22 06:47 RDW 14.8 % (12.0-15.0) 05/01/22 06:47 Plt Count 224 10^3/uL (130-450) 05/01/22 06:47 MPV 9.8 fL (7.4-11.4) 05/01/22 06:47 Neut # (Auto) 4.4 10^3/uL (1.5-6.6) 05/01/22 06:47 Lymph # (Auto) 0.7 10^3/uL (1.5-3.5) L 05/01/22 06:47 [place] # (Auto) 0.8 10^3/uL (0.0-1.0) 05/01/22 06:47 Eos # (Auto) 0.1 10^3/uL (0.0-0.7) 05/01/22 06:47 Baso # (Auto) 0.0 10^3/uL (0.0-0.1) 05/01/22 06:47 Absolute Nucleated RBC 0.00 x10^3/uL 05/01/22 06:47 Nucleated RBC % 0.0 /100WBC 05/01/22 06:47 Sodium 135 mmol/L (135-145) 05/01/22 06:47 Potassium 3.9 mmol/L (3.5-5.0) 05/01/22 06:47 Chloride 100 mmol/L (101-111) L 05/01/22 06:47 Carbon Dioxide 26 mmol/L (21-32) 05/01/22 06:47 Anion Gap 9.0 (6-13) 05/01/22 06:47 BUN 18 mg/dL (6-20) 05/01/22 06:47 Creatinine 0.9 mg/dL (0.6-1.2) 05/01/22 06:47 Estimated GFR (MDRD) 84 (>89) L 05/01/22 06:47 Glucose 165 mg/dL (70-100) H 05/01/22 06:47 POC Whole Bld Glucose 137 mg/dL (70 - 100) H 05/01/22 11:12 Lactic Acid 2.1 mmol/L (0.5-2.2) 04/29/22 09:41 Calcium 8.5 mg/dL (8.5-10.3) 05/01/22 06:47 Magnesium 2.0 mg/dL (1.7-2.8) 05/01/22 06:47 Total Bilirubin 0.5 mg/dL (0.2-1.0) 04/29/22 09:41 AST 16 IU/L (10-42) 04/29/22 09:41 ALT 17 IU/L (10-60) 04/29/22 09:41 Alkaline Phosphatase 193 IU/L (42-121) H 04/29/22 09:41 Total Protein 6.2 g/dL (6.7-8.2) L 04/29/22 09:41 Albumin 2.9 g/dL (3.2-5.5) L 04/29/22 09:41 Globulin 3.3 g/dL (2.1-4.2) 04/29/22 09:41 Albumin/Globulin Ratio 0.9 (1.0-2.2) L 04/29/22 09:41
[2022-05-02] MEDS: MAG HYDROX/AL HYDROX/SIMETH 30 ML UDC PO PRN (03:31)
[2022-05-02] MEDS: MEROPENEM 1 GM in SODIUM CHLORIDE 0.9% MINIBAG 100 ML IV SCH ×3 (03:31→20:07)
[2022-05-02 05:29] LABS: BASOPHILS % (AUTO) 0.3 %; EOSINOPHILS # (AUTO) 0.2 10^3/uL (0.0-0.7); EOSINOPHILS % (AUTO) 2.7 %; HCT - HEMATOCRIT 35.4 % (42.0-52.0); HGB - HEMOGLOBIN 11.4 g/dL (14.0-18.0); LYMPHOCYTES # (AUTO) 0.9 10^3/uL (1.5-3.5); LYMPHOCYTES % (AUTO) 14.5 %; MEAN CORPUSCULAR HEMOGLOBIN 28.4 pg (27.0-31.0); MEAN CORPUSCULAR HGB CONC 32.2 g/dL (32.0-36.0); MEAN CORPUSCULAR VOLUME 88.3 fL (80.0-94.0); MEAN PLATELET VOLUME 9.9 fL (7.4-11.4); MONOCYTES % (AUTO) 16.5 %; NEUTROPHILS # (AUTO) 3.9 10^3/uL (1.5-6.6); NEUTROPHILS % (AUTO) 65.3 %; PLT - PLATELET COUNT 213 10^3/uL (130-450); RED BLOOD COUNT 4.01 10^6/uL (4.70-6.10); RED CELL DISTRIBUTION WIDTH 14.7 % (12.0-15.0)
[2022-05-02 05:38] LABS: CALCIUM 8.4 mg/dL (8.5-10.3); CREATININE 1.1 mg/dL (0.6-1.2); POTASSIUM 3.9 mmol/L (3.5-5.0)
[2022-05-02] MEDS: oxyCODONE 5 MG TABLET PO PRN ×4 (09:04→21:32)
[2022-05-02] MEDS: APIXABAN 5 MG TABLET PO SCH ×2 (09:04→21:33)
[2022-05-02] MEDS: CALCIUM CARBONATE CHEW 500 MG TABLET PO SCH ×2 (09:04→21:33)
[2022-05-02] MEDS: CHOLECALCIFEROL 25 MCG TABLET PO SCH (09:04)
[2022-05-02] MEDS: PROPRANOLOL ER 60 MG CAPSULE PO SCH (09:09)
[2022-05-02] MEDS: MULTIVITAMIN W/MINERALS TABLET PO SCH (09:09)
[2022-05-02] MEDS: SODIUM CHLORIDE FLUSH 0.9% 10 ML SYRINGE IVP SCH ×3 (09:09→21:33)
[2022-05-02] MEDS: SACCHAROMYCES BOULARDII 250 MG CAPSULE PO SCH ×2 (09:09→17:49)
[2022-05-02] MEDS: TAMSULOSIN 0.4 MG CAPSULE PO SCH (09:09)
[2022-05-02] MEDS: INSULIN LISPRO 300 UNIT/3 ML PEN SUBQ SCH ×3 (09:10→17:51)
[2022-05-02] MEDS: polyethylene glycoL 3350 17 GM PACKET PO SCH (09:15)
--- NOTE | 2022-05-02 12:40 | PROVIDER PROGRESS NOTE ---
Subjective - Prog Note Date Prog Note Date: 05/02/22 Prog Note Time: 12:40 - Subjective Subjective: This is a 66 y/o WM with Hx of DM, LARRY not on CPAP, who fell 40 feet off a ladder on 03/16/22 and sustained trauma to multiple organs, was air transferred to [facility] where he was hospitalized for 8 days. He had multiple rib fractures, apical pneumothorax, pulmonary laceration, L kidney bleed, retroperitoneal hematoma, splenic laceration, acute blood loss anemia, R femur fracture, L scapula fracture, L iliac fracture, L2 vertebral fracture, C7, T1-T9 and L2-L4 transverse process fractures, blunt cardiac trauma and pulmonary embolism, started on Eliquis. He needed chest tubes, 2 surgeries to the R femur. He was then KSh for rehab to [facility] 03/24/22. He has been admittedly "eating and drinking poorly" due to poor appetite. He was brought in by ambulance to our ER 03/30 because of confusion, weakness and hypotension. W/U showed he has syst BP 89, HR 140 in sinus tach, WBC 17, L.A. 2.4, and abn U/A with many WBC and many bacteria and few sq cells. He was given 1L of crystalloids and BP has improved to 90-110, HR down to 110-120. He had blood cx and urine cx sent and was started on iv Ceftriaxone. He was admitted acute care from 03/30-04/05 for ESBL E coli UTI and hydropnephrosis and abx changed to meropenem. He was then transitioned to swing bed from 04/06-04/29 and completed antibiotics 04/21. He was still in swing bed getting PT when he had urinary frequency and shaking chills 04/28. Started on empiric Macrobid. But on 04/29 his blood culture and urine culture from 04/28 came back positive as recurring ESBL producing E coli. He was readmitted to acute care status 04/29 and is now on meropenem again. On May 01 the hospitalist on service spoke to infectious disease: I contacted ID at today 05/01, and spoke to Dr. Simon. We reviewed his entire case going back to his presentation in February when he fell and had trauma. Dr Simon said the prior antibx management and the current antibx management is correct, using Meropenem. She would call this a complex UTI and give it at least 14 days of IV antibiotics, possibly [address] Simon was able to look at the CT IV Pyelogram that he had when he was in [facility] and when he needed a Urology consult. That CT IVP showed bilateral stones that were nonobstructing, a grade 4 laceration of his left kidney, a capsular hematoma and collecting system injury. In the Urology consult they commented on urine leaking into his kidney and said nothing more needs to be done currently. ID today wondered if the bilateral stones could be harboring bacteria and recommended we speak to Urology. Plan: Continue IV antibiotics again using meropenem. ID recommended that we speak to the Urologist therefore I have asked for a Urology collection systems consultant at [facility] to call me back, and I received no call back today. I told the patient about the ID recommendations today. Today I spoke to urology trauma summons server for [facility]. Dr. Karthik Parham. He looked at the scan that I pushed forward from May 01. The scan does not show any abscess, the kidneys appear intact. He acknowledges the nonobstructed stones. He has a mild increase in ureter diameter on the right ureter but this is not the kidney that was but the laceration so he thinks it is a red baptiste. He sees the stones and acknowledges they may be seeding of infection but right now the patient does need a stent or nephrostomy. This can be handled in the outpatient setting once the patient has completed antibiotics. Current Medications - Current Medications Current Medications: Active Medications Acetaminophen (Acetaminophen 325 Mg Tablet) 650 mg PO Q4HR PRN PRN Reason: Pain 1 to 4, or Fever Last Admin: 05/02/22 13:51 Dose: 650 mg Acetaminophen (Acetaminophen 325 Mg Tablet) 650 mg PO Q4H PRN PRN Reason: PRN PAIN &/OR FEVER Last Admin: 04/29/22 21:36 Dose: 650 mg Al Hydroxide/Mg Hydroxide (Mag Hydrox/Al Hydrox/Simeth 30 Ml Udc) 30 ml PO Q4H PRN PRN Reason: Heartburn Last Admin: 05/02/22 03:31 Dose: 30 ml Apixaban (Apixaban 5 Mg Tablet) 5 mg PO BID [facility] Last Admin: 05/02/22 09:04 Dose: 5 mg Benzonatate (Benzonatate 100 Mg Capsule) 100 mg PO TID PRN PRN Reason: Cough Calcium Carbonate/Glycine (Calcium Carbonate Chew 500 Mg Tablet) 500 mg PO BID [facility] Last Admin: 05/02/22 09:04 Dose: 500 mg Cholecalciferol (Cholecalciferol 25 Mcg Tablet) 25 mcg PO DAILY [facility] Last Admin: 05/02/22 09:04 Dose: 25 mcg Meropenem 1 gm/ Sodium (Chloride) 100 mls @ 200 mls/hr IV Q8H [facility] Last Infusion: 05/02/22 12:28 Dose: Infused Insulin Human Lispro (Insulin Lispro 300 Unit/3 Ml Pen) 3 unit SUBQ TIDWM [facility] Last Admin: 05/02/22 11:53 Dose: 3 unit Multivitamins/Minerals (Multivitamin W/Minerals Tablet) 1 tab PO DAILYWM [facility] Last Admin: 05/02/22 09:09 Dose: 1 tab Ondansetron HCl (Ondansetron 4 Mg/2 Ml Vial) 4 mg IVP Q6HR PRN PRN Reason: Nausea / Vomiting Oxycodone HCl (Oxycodone 5 Mg Tablet) 5 mg PO Q4H PRN PRN Reason: PAIN 5-7 Last Admin: 05/02/22 13:42 Dose: 5 mg Oxycodone HCl (Oxycodone 5 Mg Tablet) 10 mg PO Q4H PRN PRN Reason: PAIN >8 Polyethylene Glycol (Polyethylene Glycol 3350 17 Gm Packet) 17 gm PO DAILY [facility] Last Admin: 05/02/22 09:15 Dose: Not Given Propranolol HCl (Propranolol Er 60 Mg Capsule) 60 mg PO DAILY [facility] Last Admin: 05/02/22 09:09 Dose: 60 mg Saccharomyces Boulardii (Saccharomyces Boulardii 250 Mg Capsule) 250 mg PO BIDWM [facility] Last Admin: 05/02/22 09:09 Dose: 250 mg Sodium Chloride (Sodium Chloride Flush 0.9% 10 Ml Syringe) 10 ml IVP PRN PRN PRN Reason: NEEDED PER PROVIDER ORDERS Sodium Chloride (Sodium Chloride Flush 0.9% 10 Ml Syringe) 10 ml IVP 0100,0900,1700 [facility] Last Admin: 05/02/22 09:09 Dose: 10 ml Tamsulosin HCl (Tamsulosin 0.4 Mg Capsule) 0.4 mg PO DAILY [facility] Last Admin: 05/02/22 09:09 Dose: 0.4 mg Throat Lozenges (Benzocaine/Menthol Lozenge) 1 lozenge MM Q2HR PRN PRN Reason: Throat pain Last Admin: 05/01/22 01:08 Dose: 1 lozenge Trazodone HCl (Trazodone 50 Mg Tablet) 50 mg PO HS PRN PRN Reason: Insomnia Apixaban [Eliquis] 5 mg PO BID 03/30/22 Cholecalciferol [Vitamin D3] 25 mcg PO DAILY 03/30/22 Insulin Lispro [Humalog] 0 - 9 units SQ TID 03/30/22 Multivitamin W/Minerals [Theragran M] 1 each PO DAILY 03/30/22 Oxycodone HCl 10 mg PO Q4H PRN 03/30/22 oxyCODONE [Roxicodone] 5 mg PO Q4H PRN 03/30/22 polyethylene glycoL 3350 [Miralax] 17 gm PO DAILY 03/30/22 Acetaminophen [Tylenol] 650 mg PO Q4H PRN 04/29/22 Calcium Carbonate [Tums (Calcium Carbonate 500mg)] 500 mg PO BID 04/29/22 Insulin Lispro [Humalog Kwikpen U-100] 3 unit SUBQ TIDWM 04/29/22 Lactobacillus Rhamnosus GG [Culturelle] 1 cap PO DAILY 04/29/22 Mag Hydrox/Al Hydrox/Simeth [Mylanta Plus] 30 ml PO Q4H PRN 04/29/22 Propranolol ER [Inderal LA] 60 mg PO DAILY 04/29/22 Saccharomyces Boulardii [Florastor] 250 mg PO BIDWM 04/29/22 Tamsulosin [Flomax] 0.4 mg PO DAILY 04/29/22 traZODone [Desyrel] 50 mg PO HS 04/29/22 Objective - Vital Signs/Intake & Output Reviewed Vital Signs: Yes Vital Signs: Vital Signs x48h Temp Pulse Resp BP Pulse Ox 05/02/22 11:15 36.7 C 93 18 114/65 92 05/02/22 07:30 36.7 C 83 18 117/90 H 98 05/02/22 04:43 37 C 78 16 119/80 96 Intake & Output: Intake & Output 04/29/22 04/30/22 05/01/2206/22 23:59 23:59 23:59 23:59 Intake Total 1040 3110 3150 1022 Output Total 8520 2036 1074 1072 Balance -910 760 -325 -53 - Objective General Appearance: positive: No acute distress, Alert Eyes Bilateral: positive: PERRL, EOMI ENT: positive: Pharynx nml, No signs of dehydration Neck: positive: No JVD. negative: Stiff neck Respiratory: positive: No respiratory distress. negative: Wheezes, Rales, Rhonchi Cardiovascular: positive: Regular rate & rhythm Abdomen: positive: Non-tender, No organomegaly, Nml bowel sounds, No distention Skin: positive: Warm, Dry Extremities: positive: Other (Left AC with abnormal anatomy because of the dislocation. Limited ROM.) Neurologic/Psychiatric: positive: Oriented x3, CN's nml (2-12), Motor nml - Lab Results Fish Bones: 05/02/22 05:09 05/02/22 05:09 Other Labs: Lab Results x24hrs 05/02/22 05/02/22 05/02/22 Range/Units 11:14 07:29 05:09 WBC (4.8-10.8) x10^3/uL RBC (4.70-6.10) 10^6/uL Hgb (14.0-18.0) g/dL Hct (42.0-52.0) % MCV (80.0-94.0) fL MCH (27.0-31.0) pg MCHC (32.0-36.0) g/dL RDW (12.0-15.0) % Plt Count (130-450) 10^3/uL MPV (7.4-11.4) fL Neut # (Auto) (1.5-6.6) 10^3/uL Lymph # (Auto) (1.5-3.5) 10^3/uL [place] # (Auto) (0.0-1.0) 10^3/uL Eos # (Auto) (0.0-0.7) 10^3/uL Baso # (Auto) (0.0-0.1) 10^3/uL Absolute Nucleated RBC x10^3/uL Nucleated RBC % /100WBC Sodium 136 (135-145) mmol/L Potassium 3.9 (3.5-5.0) mmol/L Chloride 101 (101-111) mmol/L Carbon Dioxide 26 (21-32) mmol/L Anion Gap 9.0 (6-13) BUN 21 H (6-20) mg/dL Creatinine 1.1 (0.6-1.2) mg/dL Estimated GFR (MDRD) 67 L (>89) Glucose 162 H (70-100) mg/dL POC Whole Bld Glucose 157 H 151 H (70 - 100) mg/dL Calcium 8.4 L (8.5-10.3) mg/dL 05/02/22 05/01/22 05/01/22 Range/Units 05:09 20:31 16:25 WBC 6.0 (4.8-10.8) x10^3/uL RBC 4.01 L (4.70-6.10) 10^6/uL Hgb 11.4 L (14.0-18.0) g/dL Hct 35.4 L (42.0-52.0) % MCV 88.3 (80.0-94.0) fL MCH 28.4 (27.0-31.0) pg MCHC 32.2 (32.0-36.0) g/dL RDW 14.7 (12.0-15.0) % Plt Count 213 (130-450) 10^3/uL MPV 9.9 (7.4-11.4) fL Neut # (Auto) 3.9 (1.5-6.6) 10^3/uL Lymph # (Auto) 0.9 L (1.5-3.5) 10^3/uL [place] # (Auto) 1.0 (0.0-1.0) 10^3/uL Eos # (Auto) 0.2 (0.0-0.7) 10^3/uL Baso # (Auto) 0.0 (0.0-0.1) 10^3/uL Absolute Nucleated RBC 0.00 x10^3/uL Nucleated RBC % 0.0 /100WBC Sodium (135-145) mmol/L Potassium (3.5-5.0) mmol/L Chloride (101-111) mmol/L Carbon Dioxide (21-32) mmol/L Anion Gap (6-13) BUN (6-20) mg/dL Creatinine (0.6-1.2) mg/dL Estimated GFR (MDRD) (>89) Glucose (70-100) mg/dL POC Whole Bld Glucose 224 H 153 H (70 - 100) mg/dL Calcium (8.5-10.3) mg/dL ABX Reporting Has patient been on IV antibiotics over the past 48 hours?: Yes Assessment/Plan - Problem List (1) E coli bacteremia Impression: Patient will require 14 days of antibiotic therapy, possibly 21 days. Urology has been contacted. Nothing to do about the nonobstructing stone at this time. Per urology consult from [facility] today. Today is day 09/08. (2) ESBL producing E coli infection Conclusion/Plan: Urine cx grew the same E coli that he had 4 weeks ago and was treated then with Meropenam for 21 days. It has the same sensitivity profile. This likely points to there being a nidus somewhere, since ID said today that we had treated the last ESBL E coli infection long enough. CT abd/pelvis was completed and showed no prostate abnormality, but he has bilateral renal stranding c/w bilateral hydronephrosis. Again the bilateral non- obstructing stones are seen. Urology has reviewed that CT and feels that at this time he does not need a stent. He would like the patient to be referred for evaluation at the stone clinic after discharge Plan: Continue with antibiotics Continue with his Flomax (3) Bilateral pyelonephritis/Complex UTI Conclusion/Plan: As in #1 and #2 (4) Kidney stones, bilateral Conclusion/Plan: Patient has had kidney stones for many years. Passed a kidney stone a week ago and saved into a specimen cup. We are straining his urine again and if he has another stone we will send for culture (5) Hx of multiple trauma Conclusion/Plan: This pt fell 40 feet off a ladder on 03/16/22 and sustained trauma to multiple organs, was air transferred to [facility] where he was hospitalized for 8 days. He had multiple rib fractures, apical pneumothorax, pulmonary laceration, L kidney bleed, retroperitoneal hematoma, splenic laceration, acute blood loss anemia, R femur fracture, L scapula fracture, L iliac fracture, L2 vertebral fracture, C7, T1-T9 and L2-L4 transverse process fractures, blunt cardiac trauma and pulmonary embolism, started on Eliquis. He needed chest tubes, 2 surgeries to the R femur. He then started rehab at [facility], but was admitted here (for UTI), then was here in Swing Bed for finishing iv antibx and for continued rehab, until being re-admitted here on 04/29 to Inpt status for bacteremia treatment. Plan: We will continue with oxycodone for managing pain Patient will be continued to be seen by PT and OT. (6) Separation of left acromioclavicular joint Conclusion/Plan: Plan: We had hoped to have him be able to go to the May 01 and May 02 appointments (see HPI) Continue pain management as in Swing Bed. He still needs surgery at [facility] for the L shoulder separation. He had appointments for: Spine clinic appointment on 05/01/2022 at 1 PM and Orthopedic trauma clinic appointment on 05/02/2022 at 11 AM. He was not able to go to those appointments, discharge planning and social staff worker checking to see if they were canceled and to see if was notified (7) PTSD (post-traumatic stress disorder) Conclusion/Plan: This was diagnosed with a telepsych consult while he was in his recent Swing bed status. Plan: Continue with the same management as when he was in swing bed status recently (8) Poor memory Conclusion/Plan: He has needed to be reminded how and with what precautions, and where to ambulate. He is not lethargic or over-sedated with pain meds. He may have had TBI with that fall. We do not know his baseline mental status/ memory before his fall at home, however. Also, when he was febrile 04/29 and 04/30, he was confused, and today 05/01 he has no memory of those past 2 days. Plan: Continue with reminders and cueing (9) DM type 2 (diabetes mellitus, type 2) Conclusion/Plan: Plan: We ordered carb controlled diet, Hypoglycemia protocol, sliding scale insulin coverage, fingerstick glucose checks and his usual long-acting insulin (10) Hx pulmonary embolism Conclusion/Plan: Plan: We are continuing his usual Eliquis. It was to continue through May 2022.
[2022-05-02] MEDS: ACETAMINOPHEN 325 MG TABLET PO PRN ×2 (13:51→17:49)
[2022-05-03] MEDS: ACETAMINOPHEN 325 MG TABLET PO PRN ×2 (02:37→17:53)
[2022-05-03] MEDS: MEROPENEM 1 GM in SODIUM CHLORIDE 0.9% MINIBAG 100 ML IV SCH ×3 (05:08→20:56)
[2022-05-03] MEDS: SODIUM CHLORIDE FLUSH 0.9% 10 ML SYRINGE IVP PRN ×3 (05:09→21:00)
[2022-05-03 05:21] LABS: BASOPHILS % (AUTO) 0.3 %; EOSINOPHILS # (AUTO) 0.3 10^3/uL (0.0-0.7); EOSINOPHILS % (AUTO) 4.3 %; HCT - HEMATOCRIT 39.4 % (42.0-52.0); HGB - HEMOGLOBIN 12.5 g/dL (14.0-18.0); LYMPHOCYTES # (AUTO) 1.1 10^3/uL (1.5-3.5); LYMPHOCYTES % (AUTO) 18.6 %; MEAN CORPUSCULAR HGB CONC 31.7 g/dL (32.0-36.0); MEAN CORPUSCULAR VOLUME 88.3 fL (80.0-94.0); MEAN PLATELET VOLUME 9.6 fL (7.4-11.4); MONOCYTES # (AUTO) 0.8 10^3/uL (0.0-1.0); MONOCYTES % (AUTO) 13.4 %; NEUTROPHILS # (AUTO) 3.7 10^3/uL (1.5-6.6); NEUTROPHILS % (AUTO) 62.9 %; PLT - PLATELET COUNT 278 10^3/uL (130-450); RED BLOOD COUNT 4.46 10^6/uL (4.70-6.10); WHITE BLOOD COUNT 5.8 x10^3/uL (4.8-10.8)
[2022-05-03 05:29] LABS: CREATININE 0.8 mg/dL (0.6-1.2); POTASSIUM 4.1 mmol/L (3.5-5.0)
[2022-05-03] MEDS: oxyCODONE 5 MG TABLET PO PRN ×2 (06:31→17:53)
[2022-05-03] MEDS: TAMSULOSIN 0.4 MG CAPSULE PO SCH (08:14)
[2022-05-03] MEDS: PROPRANOLOL ER 60 MG CAPSULE PO SCH (08:14)
[2022-05-03] MEDS: CALCIUM CARBONATE CHEW 500 MG TABLET PO SCH ×2 (08:14→20:57)
[2022-05-03] MEDS: SACCHAROMYCES BOULARDII 250 MG CAPSULE PO SCH ×2 (08:14→17:53)
[2022-05-03] MEDS: MULTIVITAMIN W/MINERALS TABLET PO SCH (08:14)
[2022-05-03] MEDS: INSULIN LISPRO 300 UNIT/3 ML PEN SUBQ SCH ×3 (08:14→17:56)
[2022-05-03] MEDS: APIXABAN 5 MG TABLET PO SCH ×2 (08:14→20:57)
[2022-05-03] MEDS: polyethylene glycoL 3350 17 GM PACKET PO SCH (08:15)
[2022-05-03] MEDS: SODIUM CHLORIDE FLUSH 0.9% 10 ML SYRINGE IVP SCH ×2 (08:15→18:00)
[2022-05-03] MEDS: CHOLECALCIFEROL 25 MCG TABLET PO SCH (08:15)
--- NOTE | 2022-05-03 17:17 | PROVIDER PROGRESS NOTE ---
Progress Note May 03, 2022 5:12 PM No new events. Mr. Carias continues to complain of the left shoulder pain and limited range of motion because of the AC separation. Complains of rib cage pain. Stiffness at the hip region where he had the fracture. Stiffness at the pelvis where he had the fracture. But otherwise is staying stable. No fever, vitals staying stable. He is ambulating in his room. He is claustrophobic and would prefer to be able to walk in the hallways but because of his previous viral situation he is confined to his room. Temperature is 36.1. Heart rate 81. Blood pressure 118/73. Respirations 18. 95% on room air. Active Medications Acetaminophen (Acetaminophen 325 Mg Tablet) 650 mg PO Q4HR PRN PRN Reason: Pain 1 to 4, or Fever Last Admin: 05/03/22 02:37 Dose: 650 mg Acetaminophen (Acetaminophen 325 Mg Tablet) 650 mg PO Q4H PRN PRN Reason: PRN PAIN &/OR FEVER Last Admin: 04/29/22 21:36 Dose: 650 mg Al Hydroxide/Mg Hydroxide (Mag Hydrox/Al Hydrox/Simeth 30 Ml Udc) 30 ml PO Q4H PRN PRN Reason: Heartburn Last Admin: 05/02/22 03:31 Dose: 30 ml Apixaban (Apixaban 5 Mg Tablet) 5 mg PO BID [facility] Last Admin: 05/03/22 08:14 Dose: 5 mg Benzonatate (Benzonatate 100 Mg Capsule) 100 mg PO TID PRN PRN Reason: Cough Calcium Carbonate/Glycine (Calcium Carbonate Chew 500 Mg Tablet) 500 mg PO BID [facility] Last Admin: 05/03/22 08:14 Dose: 500 mg Cholecalciferol (Cholecalciferol 25 Mcg Tablet) 25 mcg PO DAILY [facility] Last Admin: 05/03/22 08:15 Dose: 25 mcg Meropenem 1 gm/ Sodium (Chloride) 100 mls @ 200 mls/hr IV Q8H [facility] Last Infusion: 05/03/22 12:35 Dose: Infused Insulin Human Lispro (Insulin Lispro 300 Unit/3 Ml Pen) 3 unit SUBQ TIDWM [facility] Last Admin: 05/03/22 11:59 Dose: 3 unit Multivitamins/Minerals (Multivitamin W/Minerals Tablet) 1 tab PO DAILYWM [facility] Last Admin: 05/03/22 08:14 Dose: 1 tab Ondansetron HCl (Ondansetron 4 Mg/2 Ml Vial) 4 mg IVP Q6HR PRN PRN Reason: Nausea / Vomiting Oxycodone HCl (Oxycodone 5 Mg Tablet) 5 mg PO Q4H PRN PRN Reason: PAIN 5-7 Last Admin: 05/03/22 06:31 Dose: 5 mg Oxycodone HCl (Oxycodone 5 Mg Tablet) 10 mg PO Q4H PRN PRN Reason: PAIN >8 Polyethylene Glycol (Polyethylene Glycol 3350 17 Gm Packet) 17 gm PO DAILY [facility] Last Admin: 05/03/22 08:15 Dose: 17 gm Propranolol HCl (Propranolol Er 60 Mg Capsule) 60 mg PO DAILY [facility] Last Admin: 05/03/22 08:14 Dose: 60 mg Saccharomyces Boulardii (Saccharomyces Boulardii 250 Mg Capsule) 250 mg PO BIDWM [facility] Last Admin: 05/03/22 08:14 Dose: 250 mg Sodium Chloride (Sodium Chloride Flush 0.9% 10 Ml Syringe) 10 ml IVP PRN PRN PRN Reason: NEEDED PER PROVIDER ORDERS Last Admin: 05/03/22 05:09 Dose: 10 ml Sodium Chloride (Sodium Chloride Flush 0.9% 10 Ml Syringe) 10 ml IVP 0100,0900,1700 [facility] Last Admin: 05/03/22 08:15 Dose: 10 ml Tamsulosin HCl (Tamsulosin 0.4 Mg Capsule) 0.4 mg PO DAILY [facility] Last Admin: 05/03/22 08:14 Dose: 0.4 mg Throat Lozenges (Benzocaine/Menthol Lozenge) 1 lozenge MM Q2HR PRN PRN Reason: Throat pain Last Admin: 05/01/22 01:08 Dose: 1 lozenge Trazodone HCl (Trazodone 50 Mg Tablet) 50 mg PO HS PRN PRN Reason: Insomnia Apixaban [Eliquis] 5 mg PO BID 03/30/22 Cholecalciferol [Vitamin D3] 25 mcg PO DAILY 03/30/22 Insulin Lispro [Humalog] 0 - 9 units SQ TID 03/30/22 Multivitamin W/Minerals [Theragran M] 1 each PO DAILY 03/30/22 Oxycodone HCl 10 mg PO Q4H PRN 03/30/22 oxyCODONE [Roxicodone] 5 mg PO Q4H PRN 03/30/22 polyethylene glycoL 3350 [Miralax] 17 gm PO DAILY 03/30/22 Acetaminophen [Tylenol] 650 mg PO Q4H PRN 04/29/22 Calcium Carbonate [Tums (Calcium Carbonate 500mg)] 500 mg PO BID 04/29/22 Insulin Lispro [Humalog Kwikpen U-100] 3 unit SUBQ TIDWM 04/29/22 Lactobacillus Rhamnosus GG [Culturelle] 1 cap PO DAILY 04/29/22 Mag Hydrox/Al Hydrox/Simeth [Mylanta Plus] 30 ml PO Q4H PRN 04/29/22 Propranolol ER [Inderal LA] 60 mg PO DAILY 04/29/22 Saccharomyces Boulardii [Florastor] 250 mg PO BIDWM 04/29/22 Tamsulosin [Flomax] 0.4 mg PO DAILY 04/29/22 traZODone [Desyrel] 50 mg PO HS 04/29/22 Exam: Tall, alert, pleasant gentleman. Shotty neck adenopathy Clear lungs with diminished breath sounds at the bases but no respiratory distress or increased respiratory effort with speaking to me or walking in the room Regular rate and rhythm Abdomen is soft, nontender. Extremities are without any edema and he has limited range of motion depending on what joint was affected by what fracture. For his left arm he still has limited range of motion exercises because of the scapular fracture. Sodium 134. Potassium 4.1. BUN 22. Glucose yesterday was 151, 157, 152 and 180. Glucose today is 144, 143, 162. - Problem List (1) E coli bacteremia Impression: Patient will require 14 days of antibiotic therapy, possibly 21 days. Urology has been contacted. Nothing to do about the nonobstructing stone at this time. Per urology consult from [facility] 05/02. I have called ID again today to update the new info from Urology. They will be calling me back. Today is day 10/08. (2) ESBL producing E coli infection Conclusion/Plan: Urine cx grew the same E coli that he had 4 weeks ago and was treated then with Meropenam for 21 days. It has the same sensitivity profile. This likely points to there being a nidus somewhere, since ID said today that we had treated the last ESBL E coli infection long enough. CT abd/pelvis was completed and showed no prostate abnormality, but he has bilateral renal stranding c/w bilateral hydronephrosis. Again the bilateral non- obstructing stones are seen. Urology has reviewed that CT and feels that at this time he does not need a stent. He would like the patient to be referred for evaluation at the stone clinic after discharge Plan: Continue with antibiotics Continue with his Flomax (3) Bilateral pyelonephritis/Complex UTI Conclusion/Plan: As in #1 and #2 (4) Kidney stones, bilateral Conclusion/Plan: Patient has had kidney stones for many years. Passed a kidney stone a week ago and saved into a specimen cup. We are straining his urine again and if he has another stone we will send for culture Check PTH in am. (5) Hx of multiple trauma Conclusion/Plan: This pt fell 40 feet off a ladder on 03/16/22 and sustained trauma to multiple organs, was air transferred to [facility] where he was hospitalized for 8 days. He had multiple rib fractures, apical pneumothorax, pulmonary laceration, L kidney bleed, retroperitoneal hematoma, splenic laceration, acute blood loss anemia, R femur fracture, L scapula fracture, L iliac fracture, L2 vertebral fracture, C7, T1-T9 and L2-L4 transverse process fractures, blunt cardiac trauma and pulmonary embolism, started on Eliquis. He needed chest tubes, 2 surgeries to the R femur. He then started rehab at [facility], but was admitted here (for UTI), then was here in Swing Bed for finishing iv antibx and for continued rehab, until being re-admitted here on 04/29 to Inpt status for bacteremia treatment. Plan: We will continue with oxycodone for managing pain Patient will be continued to be seen by PT and OT. (6) Separation of left acromioclavicular joint Conclusion/Plan: Plan: We had hoped to have him be able to go to the May 01 and May 02 appointments (see HPI) Continue pain management as in Swing Bed. He still needs surgery at [facility] for the L shoulder separation. He had appointments for: Spine clinic appointment on 05/01/2022 at 1 PM and Orthopedic trauma clinic appointment on 05/02/2022 at 11 AM. He was not able to go to those appointments, discharge planning and psychotherapist social worker checking to see if they were canceled and to see if [facility] was notified (7) PTSD (post-traumatic stress disorder) Conclusion/Plan: This was diagnosed with a telepsych consult while he was in his recent Swing bed status. Plan: Continue with the same management as when he was in swing bed status recently (8) Poor memory Conclusion/Plan: He has needed to be reminded how and with what precautions, and where to ambulate. He is not lethargic or over-sedated with pain meds. He may have had TBI with that fall. We do not know his baseline mental status/ memory before his fall at home, however. Also, when he was febrile / and 04/30, he was confused, and today 05/01 he has no memory of those past 2 days. Plan: Continue with reminders and cueing (9) DM type 2 (diabetes mellitus, type 2) Conclusion/Plan: Plan: We ordered carb controlled diet, Hypoglycemia protocol, sliding scale insulin coverage, fingerstick glucose checks and his usual long-acting insulin (10) Hx pulmonary embolism Conclusion/Plan: Plan: We are continuing his usual Eliquis. It was to continue through May 2022.
[2022-05-04] MEDS: ACETAMINOPHEN 325 MG TABLET PO PRN ×3 (01:56→18:41)
[2022-05-04] MEDS: oxyCODONE 5 MG TABLET PO PRN ×3 (01:57→18:41)
[2022-05-04] MEDS: SODIUM CHLORIDE FLUSH 0.9% 10 ML SYRINGE IVP SCH ×3 (03:52→16:52)
[2022-05-04] MEDS: MEROPENEM 1 GM in SODIUM CHLORIDE 0.9% MINIBAG 100 ML IV SCH ×3 (03:52→21:30)
[2022-05-04 05:04] LABS: BASOPHILS % (AUTO) 0.4 %; EOSINOPHILS # (AUTO) 0.3 10^3/uL (0.0-0.7); EOSINOPHILS % (AUTO) 4.1 %; HCT - HEMATOCRIT 36.1 % (42.0-52.0); HGB - HEMOGLOBIN 11.7 g/dL (14.0-18.0); LYMPHOCYTES # (AUTO) 1.3 10^3/uL (1.5-3.5); LYMPHOCYTES % (AUTO) 17.6 %; MEAN CORPUSCULAR HEMOGLOBIN 28.3 pg (27.0-31.0); MEAN CORPUSCULAR HGB CONC 32.4 g/dL (32.0-36.0); MEAN CORPUSCULAR VOLUME 87.2 fL (80.0-94.0); MEAN PLATELET VOLUME 9.8 fL (7.4-11.4); MONOCYTES # (AUTO) 0.8 10^3/uL (0.0-1.0); MONOCYTES % (AUTO) 11.6 %; NEUTROPHILS # (AUTO) 4.7 10^3/uL (1.5-6.6); NEUTROPHILS % (AUTO) 65.7 %; PLT - PLATELET COUNT 298 10^3/uL (130-450); RED BLOOD COUNT 4.14 10^6/uL (4.70-6.10); WHITE BLOOD COUNT 7.1 x10^3/uL (4.8-10.8)
[2022-05-04 05:10] LABS: CALCIUM 8.6 mg/dL (8.5-10.3); CREATININE 0.9 mg/dL (0.6-1.2); POTASSIUM 4.3 mmol/L (3.5-5.0)
[2022-05-04] MEDS: INSULIN LISPRO 300 UNIT/3 ML PEN SUBQ SCH ×3 (08:28→16:52)
[2022-05-04] MEDS: TAMSULOSIN 0.4 MG CAPSULE PO SCH (08:28)
[2022-05-04] MEDS: APIXABAN 5 MG TABLET PO SCH ×2 (08:28→20:53)
[2022-05-04] MEDS: CHOLECALCIFEROL 25 MCG TABLET PO SCH (08:28)
[2022-05-04] MEDS: polyethylene glycoL 3350 17 GM PACKET PO SCH (08:28)
[2022-05-04] MEDS: PROPRANOLOL ER 60 MG CAPSULE PO SCH (08:28)
[2022-05-04] MEDS: CALCIUM CARBONATE CHEW 500 MG TABLET PO SCH ×2 (08:28→20:53)
[2022-05-04] MEDS: SACCHAROMYCES BOULARDII 250 MG CAPSULE PO SCH ×2 (08:28→16:52)
[2022-05-04] MEDS: MULTIVITAMIN W/MINERALS TABLET PO SCH (08:28)
--- NOTE | 2022-05-04 13:57 | PROVIDER PROGRESS NOTE ---
Progress Note May 04, 2022 1:51 PM No events. No fever. No chills. He does have an appointment next week with spine clinic at 11:40 AM on May 12. We will try to figure out how we can get him there without missing his dose of meropenem that occurs at noon. There is no chest pain, palpitations, shortness of breath. Active Medications Acetaminophen (Acetaminophen 325 Mg Tablet) 650 mg PO Q4HR PRN PRN Reason: Pain 1 to 4, or Fever Last Admin: 05/04/22 10:50 Dose: 650 mg Acetaminophen (Acetaminophen 325 Mg Tablet) 650 mg PO Q4H PRN PRN Reason: PRN PAIN &/OR FEVER Last Admin: 04/29/22 21:36 Dose: 650 mg Al Hydroxide/Mg Hydroxide (Mag Hydrox/Al Hydrox/Simeth 30 Ml Udc) 30 ml PO Q4H PRN PRN Reason: Heartburn Last Admin: 05/02/22 03:31 Dose: 30 ml Apixaban (Apixaban 5 Mg Tablet) 5 mg PO BID [facility] Last Admin: 05/04/22 08:28 Dose: 5 mg Benzonatate (Benzonatate 100 Mg Capsule) 100 mg PO TID PRN PRN Reason: Cough Calcium Carbonate/Glycine (Calcium Carbonate Chew 500 Mg Tablet) 500 mg PO BID [facility] Last Admin: 05/04/22 08:28 Dose: 500 mg Cholecalciferol (Cholecalciferol 25 Mcg Tablet) 25 mcg PO DAILY [facility] Last Admin: 05/04/22 08:28 Dose: 25 mcg Meropenem 1 gm/ Sodium (Chloride) 100 mls @ 200 mls/hr IV Q8H [facility] Last Infusion: 05/04/22 06:15 Dose: Infused Insulin Human Lispro (Insulin Lispro 300 Unit/3 Ml Pen) 3 unit SUBQ TIDWM [facility] Last Admin: 05/04/22 11:59 Dose: 3 unit Multivitamins/Minerals (Multivitamin W/Minerals Tablet) 1 tab PO DAILYWM [facility] Last Admin: 05/04/22 08:28 Dose: 1 tab Ondansetron HCl (Ondansetron 4 Mg/2 Ml Vial) 4 mg IVP Q6HR PRN PRN Reason: Nausea / Vomiting Oxycodone HCl (Oxycodone 5 Mg Tablet) 5 mg PO Q4H PRN PRN Reason: PAIN 5-7 Last Admin: 05/04/22 10:50 Dose: 5 mg Oxycodone HCl (Oxycodone 5 Mg Tablet) 10 mg PO Q4H PRN PRN Reason: PAIN >8 Polyethylene Glycol (Polyethylene Glycol 3350 17 Gm Packet) 17 gm PO DAILY [facility] Last Admin: 05/04/22 08:28 Dose: 17 gm Propranolol HCl (Propranolol Er 60 Mg Capsule) 60 mg PO DAILY [facility] Last Admin: 05/04/22 08:28 Dose: 60 mg Saccharomyces Boulardii (Saccharomyces Boulardii 250 Mg Capsule) 250 mg PO BIDWM [facility] Last Admin: 05/04/22 08:28 Dose: 250 mg Sodium Chloride (Sodium Chloride Flush 0.9% 10 Ml Syringe) 10 ml IVP PRN PRN PRN Reason: NEEDED PER PROVIDER ORDERS Last Admin: 05/03/22 21:00 Dose: 10 ml Sodium Chloride (Sodium Chloride Flush 0.9% 10 Ml Syringe) 10 ml IVP 0100,0900,1700 [facility] Last Admin: 05/04/22 08:29 Dose: 10 ml Tamsulosin HCl (Tamsulosin 0.4 Mg Capsule) 0.4 mg PO DAILY [facility] Last Admin: 05/04/22 08:28 Dose: 0.4 mg Throat Lozenges (Benzocaine/Menthol Lozenge) 1 lozenge MM Q2HR PRN PRN Reason: Throat pain Last Admin: 05/01/22 01:08 Dose: 1 lozenge Trazodone HCl (Trazodone 50 Mg Tablet) 50 mg PO HS PRN PRN Reason: Insomnia Exam: Temperature is 97.6. Heart rate 79. Blood pressure 121/77. Respirations 20. 96% on room air 6 foot tall, 84.2 kg Tall, alert, pleasant male, ambulates in his room and would love to be ambulating outside of his room. He says he is getting very claustrophobic. Lungs are clear without crackles rhonchi wheezing Regular rate and rhythm Abdomen is soft, nontender, no flank pain, normal bowel sounds Extremities without edema, does have limited range of motion on the left shoulder because of the AC separation and the scapular fracture. He does walk sometimes with limping because of a femur fracture on 1 side and a pelvic fracture on the other side. But he is weightbearing completely. Sodium 134. Potassium 4.3. BUN 25. Creatinine 0.9. Glucose 184. White cell count 7.1. Hemoglobin 11.7 Assessment/Plan - Problem List (1) E coli bacteremia Impression: Patient will require 14 days of antibiotic therapy, possibly 21 days. Urology has been contacted. Nothing to do about the nonobstructing stone at this time. Per urology consult from [facility]. ID from states he will need suppressive therapy until the stones can be addressed. She recommends Macrodantin after the 14 days of meropenem. Today is day 6/14. (2) ESBL producing E coli infection Conclusion/Plan: Urine cx grew the same E coli that he had 4 weeks ago and was treated then with Meropenam for 21 days. It has the same sensitivity profile. This likely points to there being a nidus somewhere, since ID said today that we had treated the last ESBL E coli infection long enough. CT abd/pelvis was completed and showed no prostate abnormality, but he has bilateral renal stranding c/w bilateral hydronephrosis. Again the bilateral non- obstructing stones are seen. Urology has reviewed that CT and feels that at this time he does not need a stent. He would like the patient to be referred for evaluation at the stone clinic after discharge Plan: Continue with antibiotics Continue with his Flomax (3) Bilateral pyelonephritis/Complex UTI Conclusion/Plan: As in #1 and #2 (4) Kidney stones, bilateral Conclusion/Plan: Patient has had kidney stones for many years. Passed a kidney stone a week ago and saved into a specimen cup. We are straining his urine again and if he has another stone we will send for culture PTH was drawn this morning, results pending (5) Hx of multiple trauma Conclusion/Plan: This pt fell 40 feet off a ladder on 03/16/22 and sustained trauma to multiple organs, was air transferred to [facility] where he was hospitalized for 8 days. He had multiple rib fractures, apical pneumothorax, pulmonary laceration, L kidney bleed, retroperitoneal hematoma, splenic laceration, acute blood loss anemia, R femur fracture, L scapula fracture, L iliac fracture, L2 vertebral fracture, C7, T1-T9 and L2-L4 transverse process fractures, blunt cardiac trauma and pulmonary embolism, started on Eliquis. He needed chest tubes, 2 surgeries to the R femur. He then started rehab at [facility], but was admitted here (for UTI), then was here in Swing Bed for finishing iv antibx and for continued rehab, until being re-admitted here on 04/29 to Inpt status for bacteremia treatment. Plan: We will continue with oxycodone for managing pain Patient will be continued to be seen by PT and OT. After completing his antibiotics this time, plan is for discharge to home and not to a facility for rehab (6) Separation of left acromioclavicular joint Conclusion/Plan: Plan: We had hoped to have him be able to go to the May 01 and May 02 appointments (see HPI) Continue pain management as in Swing Bed. He still needs surgery at [facility] for the L shoulder separation. He had appointments for: Spine clinic appointment on 05/01/2022 at 1 PM and Orthopedic trauma clinic appointment on 05/02/2022 at 11 AM. He was not able to go to those appointments, discharge planning and social science research assistant checking to see if they were canceled and to see if [facility] was notified [facility] was not notified so he has been rescheduled. He now has a spine clinic appointment on May 12 at 11:40 AM. Were trying to figure out the logistics of getting him there. (7) PTSD (post-traumatic stress disorder) Conclusion/Plan: This was diagnosed with a telepsych consult while he was in his recent Swing bed status. Plan: Continue with the same management as when he was in swing bed status recently (8) Poor memory Conclusion/Plan: He has needed to be reminded how and with what precautions, and where to ambulate. He is not lethargic or over-sedated with pain meds. He may have had TBI with that fall. We do not know his baseline mental status/ memory before his fall at home, however. Also, when he was febrile 04/29 and 04/30, he was confused, and 05/01 he has no memory of those past 2 days. Since then he is at baseline and orientation. Plan: Continue with reminders and cueing (9) DM type 2 (diabetes mellitus, type 2) Conclusion/Plan: Yesterday he was 144, 143, 162 77. Today he is 155, 131 Plan: We ordered carb controlled diet, Hypoglycemia protocol, sliding scale insulin coverage, fingerstick glucose checks and his usual long-acting insulin (10) Hx pulmonary embolism Conclusion/Plan: Plan: We are continuing his usual Eliquis. It was to continue through May 2022.
[2022-05-05] MEDS: ACETAMINOPHEN 325 MG TABLET PO PRN ×4 (00:24→16:53)
[2022-05-05] MEDS: oxyCODONE 5 MG TABLET PO PRN ×4 (00:24→16:54)
[2022-05-05 05:04] LABS: BASOPHILS % (AUTO) 0.5 %; EOSINOPHILS # (AUTO) 0.3 10^3/uL (0.0-0.7); EOSINOPHILS % (AUTO) 4.6 %; HGB - HEMOGLOBIN 12.4 g/dL (14.0-18.0); LYMPHOCYTES # (AUTO) 1.6 10^3/uL (1.5-3.5); LYMPHOCYTES % (AUTO) 24.3 %; MEAN CORPUSCULAR HEMOGLOBIN 28.1 pg (27.0-31.0); MEAN CORPUSCULAR HGB CONC 31.8 g/dL (32.0-36.0); MEAN CORPUSCULAR VOLUME 88.2 fL (80.0-94.0); MEAN PLATELET VOLUME 9.6 fL (7.4-11.4); MONOCYTES # (AUTO) 0.6 10^3/uL (0.0-1.0); MONOCYTES % (AUTO) 9.5 %; NEUTROPHILS # (AUTO) 3.9 10^3/uL (1.5-6.6); NEUTROPHILS % (AUTO) 60.2 %; PLT - PLATELET COUNT 326 10^3/uL (130-450); RED BLOOD COUNT 4.42 10^6/uL (4.70-6.10); WHITE BLOOD COUNT 6.5 x10^3/uL (4.8-10.8)
[2022-05-05 05:11] LABS: CALCIUM 9.2 mg/dL (8.5-10.3); POTASSIUM 4.6 mmol/L (3.5-5.0)
[2022-05-05] MEDS: SODIUM CHLORIDE FLUSH 0.9% 10 ML SYRINGE IVP SCH ×3 (06:20→16:57)
[2022-05-05] MEDS: MEROPENEM 1 GM in SODIUM CHLORIDE 0.9% MINIBAG 100 ML IV SCH ×3 (06:20→21:14)
[2022-05-05] MEDS: INSULIN LISPRO 300 UNIT/3 ML PEN SUBQ SCH ×3 (09:27→16:54)
[2022-05-05] MEDS: polyethylene glycoL 3350 17 GM PACKET PO SCH (09:28)
[2022-05-05] MEDS: APIXABAN 5 MG TABLET PO SCH ×2 (09:28→20:07)
[2022-05-05] MEDS: MULTIVITAMIN W/MINERALS TABLET PO SCH (09:28)
[2022-05-05] MEDS: SACCHAROMYCES BOULARDII 250 MG CAPSULE PO SCH ×2 (09:29→16:57)
[2022-05-05] MEDS: CHOLECALCIFEROL 25 MCG TABLET PO SCH (09:29)
[2022-05-05] MEDS: TAMSULOSIN 0.4 MG CAPSULE PO SCH (09:29)
[2022-05-05] MEDS: PROPRANOLOL ER 60 MG CAPSULE PO SCH (09:29)
[2022-05-05] MEDS: CALCIUM CARBONATE CHEW 500 MG TABLET PO SCH ×2 (09:29→20:07)
--- NOTE | 2022-05-05 15:54 | PROVIDER PROGRESS NOTE ---
Subjective - Prog Note Date Prog Note Date: 05/05/22 Prog Note Time: 15:48 - Subjective Subjective: Worries are: 1. Dire need to have L shoulder repaired 2. Worry about the nidus of his stones causing the ESBL and that Urology won't see him as emergent Expectations were set and questions answered. He likes it here, feels safe because we take such good care of him and he is [place] of [place]. Current Medications - Current Medications Current Medications: Active Medications Acetaminophen (Acetaminophen 325 Mg Tablet) 650 mg PO Q4HR PRN PRN Reason: Pain 1 to 4, or Fever Last Admin: 05/05/22 11:23 Dose: 650 mg Acetaminophen (Acetaminophen 325 Mg Tablet) 650 mg PO Q4H PRN PRN Reason: PRN PAIN &/OR FEVER Last Admin: 04/29/22 21:36 Dose: 650 mg Al Hydroxide/Mg Hydroxide (Mag Hydrox/Al Hydrox/Simeth 30 Ml Udc) 30 ml PO Q4H PRN PRN Reason: Heartburn Last Admin: 05/02/22 03:31 Dose: 30 ml Apixaban (Apixaban 5 Mg Tablet) 5 mg PO BID [facility] Last Admin: 05/05/22 09:28 Dose: 5 mg Benzonatate (Benzonatate 100 Mg Capsule) 100 mg PO TID PRN PRN Reason: Cough Calcium Carbonate/Glycine (Calcium Carbonate Chew 500 Mg Tablet) 500 mg PO BID [facility] Last Admin: 05/05/22 09:29 Dose: 500 mg Cholecalciferol (Cholecalciferol 25 Mcg Tablet) 25 mcg PO DAILY [facility] Last Admin: 05/05/22 09:29 Dose: 25 mcg Meropenem 1 gm/ Sodium (Chloride) 100 mls @ 200 mls/hr IV Q8H [facility] Last Admin: 05/05/22 14:15 Dose: 200 mls/hr Insulin Human Lispro (Insulin Lispro 300 Unit/3 Ml Pen) 3 unit SUBQ TIDWM [facility] Last Admin: 05/05/22 11:23 Dose: 3 unit Multivitamins/Minerals (Multivitamin W/Minerals Tablet) 1 tab PO DAILYWM [facility] Last Admin: 05/05/22 09:28 Dose: 1 tab Ondansetron HCl (Ondansetron 4 Mg/2 Ml Vial) 4 mg IVP Q6HR PRN PRN Reason: Nausea / Vomiting Oxycodone HCl (Oxycodone 5 Mg Tablet) 5 mg PO Q4H PRN PRN Reason: PAIN 5-7 Last Admin: 05/05/22 11:23 Dose: 5 mg Oxycodone HCl (Oxycodone 5 Mg Tablet) 10 mg PO Q4H PRN PRN Reason: PAIN >8 Polyethylene Glycol (Polyethylene Glycol 3350 17 Gm Packet) 17 gm PO DAILY [facility] Last Admin: 05/05/22 09:28 Dose: 17 gm Propranolol HCl (Propranolol Er 60 Mg Capsule) 60 mg PO DAILY [facility] Last Admin: 05/05/22 09:29 Dose: 60 mg Saccharomyces Boulardii (Saccharomyces Boulardii 250 Mg Capsule) 250 mg PO BIDWM [facility] Last Admin: 05/05/22 09:29 Dose: 250 mg Sodium Chloride (Sodium Chloride Flush 0.9% 10 Ml Syringe) 10 ml IVP PRN PRN PRN Reason: NEEDED PER PROVIDER ORDERS Last Admin: 05/03/22 21:00 Dose: 10 ml Sodium Chloride (Sodium Chloride Flush 0.9% 10 Ml Syringe) 10 ml IVP 0100,0900,1700 [facility] Last Admin: 05/05/22 09:30 Dose: 10 ml Tamsulosin HCl (Tamsulosin 0.4 Mg Capsule) 0.4 mg PO DAILY [facility] Last Admin: 05/05/22 09:29 Dose: 0.4 mg Throat Lozenges (Benzocaine/Menthol Lozenge) 1 lozenge MM Q2HR PRN PRN Reason: Throat pain Last Admin: 05/01/22 01:08 Dose: 1 lozenge Trazodone HCl (Trazodone 50 Mg Tablet) 50 mg PO HS PRN PRN Reason: Insomnia Apixaban [Eliquis] 5 mg PO BID 03/30/22 Cholecalciferol [Vitamin D3] 25 mcg PO DAILY 03/30/22 Insulin Lispro [Humalog] 0 - 9 units SQ TID 03/30/22 Multivitamin W/Minerals [Theragran M] 1 each PO DAILY 03/30/22 Oxycodone HCl 10 mg PO Q4H PRN 03/30/22 oxyCODONE [Roxicodone] 5 mg PO Q4H PRN 03/30/22 polyethylene glycoL 3350 [Miralax] 17 gm PO DAILY 03/30/22 Acetaminophen [Tylenol] 650 mg PO Q4H PRN 04/29/22 Calcium Carbonate [Tums (Calcium Carbonate 500mg)] 500 mg PO BID 04/29/22 Insulin Lispro [Humalog Kwikpen U-100] 3 unit SUBQ TIDWM 04/29/22 Lactobacillus Rhamnosus GG [Culturelle] 1 cap PO DAILY 04/29/22 Mag Hydrox/Al Hydrox/Simeth [Mylanta Plus] 30 ml PO Q4H PRN 04/29/22 Propranolol ER [Inderal LA] 60 mg PO DAILY 04/29/22 Saccharomyces Boulardii [Florastor] 250 mg PO BIDWM 04/29/22 Tamsulosin [Flomax] 0.4 mg PO DAILY 04/29/22 traZODone [Desyrel] 50 mg PO HS 04/29/22 Objective - Vital Signs/Intake & Output Reviewed Vital Signs: Yes Intake & Output: Intake & Output 05/02/22 05/03/22 05/04/22 05/05/22 23:59 23:59 23:59 23:59 Intake Total 2372 1320 1630.000 980 Output Total 2125 4050 3075 1900 Balance 247 -9230 -1445.000 -920 - Objective General Appearance: positive: No acute distress, Alert, Other (walking freely in his room) Eyes Bilateral: positive: PERRL, EOMI ENT: positive: No signs of dehydration Neck: positive: No JVD. negative: Stiff neck Respiratory: positive: No respiratory distress. negative: Wheezes, Rales, Rhonchi Cardiovascular: positive: Regular rate & rhythm Abdomen: positive: Non-tender, No organomegaly, Nml bowel sounds Skin: positive: Warm, Dry Extremities: positive: Other (L shoulder AC ) Neurologic/Psychiatric: positive: Oriented x3, CN's nml (2-12), Motor nml - Lab Results Fish Bones: 05/05/22 04:34 05/05/22 04:34 Other Labs: Lab Results x24hrs 05/05/22 05/05/22 05/05/22 Range/Units 11:09 07:26 04:34 WBC (4.8-10.8) x10^3/uL RBC (4.70-6.10) 10^6/uL Hgb (14.0-18.0) g/dL Hct (42.0-52.0) % MCV (80.0-94.0) fL MCH (27.0-31.0) pg MCHC (32.0-36.0) g/dL RDW (12.0-15.0) % Plt Count (130-450) 10^3/uL MPV (7.4-11.4) fL Neut # (Auto) (1.5-6.6) 10^3/uL Lymph # (Auto) (1.5-3.5) 10^3/uL Lamb # (Auto) (0.0-1.0) 10^3/uL Eos # (Auto) (0.0-0.7) 10^3/uL Baso # (Auto) (0.0-0.1) 10^3/uL Absolute Nucleated RBC x10^3/uL Nucleated RBC % /100WBC Sodium 137 (135-145) mmol/L Potassium 4.6 (3.5-5.0) mmol/L Chloride 100 L (101-111) mmol/L Carbon Dioxide 28 (21-32) mmol/L Anion Gap 9.0 (6-13) BUN 27 H (6-20) mg/dL Creatinine 1.0 (0.6-1.2) mg/dL Estimated GFR (MDRD) 75 L (>89) Glucose 147 H (70-100) mg/dL POC Whole Bld Glucose 118 H 160 H (70 - 100) mg/dL Calcium 9.2 (8.5-10.3) mg/dL 05/05/22 05/04/22 05/04/22 Range/Units 04:34 20:20 16:41 WBC 6.5 (4.8-10.8) x10^3/uL RBC 4.42 L (4.70-6.10) 10^6/uL Hgb 12.4 L (14.0-18.0) g/dL Hct 39.0 L (42.0-52.0) % MCV 88.2 (80.0-94.0) fL MCH 28.1 (27.0-31.0) pg MCHC 31.8 L (32.0-36.0) g/dL RDW 15.0 (12.0-15.0) % Plt Count 326 (130-450) 10^3/uL MPV 9.6 (7.4-11.4) fL Neut # (Auto) 3.9 (1.5-6.6) 10^3/uL Lymph # (Auto) 1.6 (1.5-3.5) 10^3/uL Lamb # (Auto) 0.6 (0.0-1.0) 10^3/uL Eos # (Auto) 0.3 (0.0-0.7) 10^3/uL Baso # (Auto) 0.0 (0.0-0.1) 10^3/uL Absolute Nucleated RBC 0.00 x10^3/uL Nucleated RBC % 0.0 /100WBC Sodium (135-145) mmol/L Potassium (3.5-5.0) mmol/L Chloride (101-111) mmol/L Carbon Dioxide (21-32) mmol/L Anion Gap (6-13) BUN (6-20) mg/dL Creatinine (0.6-1.2) mg/dL Estimated GFR (MDRD) (>89) Glucose (70-100) mg/dL POC Whole Bld Glucose 224 H 111 H (70 - 100) mg/dL Calcium (8.5-10.3) mg/dL ABX Reporting Has patient been on IV antibiotics over the past 48 hours?: Yes Assessment/Plan - Problem List (1) E coli bacteremia Impression: (1) E coli bacteremia Impression: Patient will require 14 days of antibiotic therapy, possibly 21 days. Urology has been contacted. Nothing to do about the nonobstructing stone at this time. Per urology consult from [facility]. ID from states he will need suppressive therapy until the stones can be addressed. She recommends Macrodantin after the 14 days of meropenem. Today is day 7/14. (2) ESBL producing E coli infection Conclusion/Plan: Urine cx grew the same E coli that he had 4 weeks ago and was treated then with Meropenam for 21 days. It has the same sensitivity profile. This likely points to there being a nidus somewhere, since ID said today that we had treated the last ESBL E coli infection long enough. CT abd/pelvis was completed and showed no prostate abnormality, but he has bilateral renal stranding c/w bilateral hydronephrosis. Again the bilateral non- obstructing stones are seen. Urology has reviewed that CT and feels that at this time he does not need a stent. He would like the patient to be referred for evaluation at the stone clinic after discharge Plan: Continue with antibiotics Continue with his Flomax (3) Bilateral pyelonephritis/Complex UTI Conclusion/Plan: As in #1 and #2 (4) Kidney stones, bilateral Conclusion/Plan: Patient has had kidney stones for many years. Passed a kidney stone a week ago and saved into a specimen cup. We are straining his urine again and if he has another stone we will send for culture PTH was drawn 05/04, results pending (5) Hx of multiple trauma Conclusion/Plan: This pt fell 40 feet off a ladder on 03/16/22 and sustained trauma to multiple organs, was air transferred to [facility] where he was hospitalized for 8 days. He had multiple rib fractures, apical pneumothorax, pulmonary laceration, L kidney bleed, retroperitoneal hematoma, splenic laceration, acute blood loss anemia, R femur fracture, L scapula fracture, L iliac fracture, L2 vertebral fracture, C7, T1-T9 and L2-L4 transverse process fractures, blunt cardiac trauma and pulmonary embolism, started on Eliquis. He needed chest tubes, 2 surgeries to the R femur. He then started rehab at [facility], but was admitted here (for UTI), then was here in Swing Bed for finishing iv antibx and for continued rehab, until being re-admitted here on 04/29 to Inpt status for bacteremia treatment. Plan: We will continue with oxycodone for managing pain Patient will be continued to be seen by PT and OT. After completing his antibiotics this time, plan is for discharge to home and not to a facility for rehab (6) Separation of left acromioclavicular joint Conclusion/Plan: Plan: We had hoped to have him be able to go to the May 01 and May 02 appointments (see HPI) Continue pain management as in Swing Bed. He still needs surgery at [facility] for the L shoulder separation. He had appointments for: Spine clinic appointment on 05/01/2022 at 1 PM and Orthopedic trauma clinic appointment on 05/02/2022 at 11 AM. He was not able to go to those appointments, discharge planning and delinquency prevention social worker checking to see if they were canceled and to see if was notified [facility] was not notified so he has been rescheduled. He now has a spine clinic appointment on May 12 at 11:40 AM. Were trying to figure out the logistics of getting him there. (1) E coli bacteremia Impression: Patient will require 14 days of antibiotic therapy, possibly 21 days. Urology has been contacted. Nothing to do about the nonobstructing stone at this time. Per urology consult from [facility]. ID from states he will need suppressive therapy until the stones can be addressed. She recommends Macrodantin after the 14 days of meropenem. Today is day 6/14. (2) ESBL producing E coli infection Conclusion/Plan: Urine cx grew the same E coli that he had 4 weeks ago and was treated then with Meropenam for 21 days. It has the same sensitivity profile. This likely points to there being a nidus somewhere, since ID said today that we had treated the last ESBL E coli infection long enough. CT abd/pelvis was completed and showed no prostate abnormality, but he has laila ateral renal stranding c/w bilateral hydronephrosis. Again the bilateral non- obstructing stones are seen. Urology has reviewed that CT and feels that at this time he does not need a stent. He would like the patient to be referred for evaluation at the stone clinic after discharge Plan: Continue with antibiotics Continue with his Flomax (3) Bilateral pyelonephritis/Complex UTI Conclusion/Plan: As in #1 and #2 (4) Kidney stones, bilateral Conclusion/Plan: Patient has had kidney stones for many years. Passed a kidney stone a week ago and saved into a specimen cup. We are straining his urine again and if he has a nother stone we will send for culture PTH was drawn this morning, results pending (5) Hx of multiple trauma Conclusion/Plan: This pt fell 40 feet off a ladder on 03/16/22 and sustained trauma to multiple organs, was air transferred to [facility] where he was hospitalized for 8 days. He had multiple rib fractures, apical pneumothorax, pulmonary laceration, L kidney bleed, retroperitoneal hematoma, splenic laceration, acute blood loss anemia, R femur fracture, L scapula fracture, L iliac fracture, L2 vertebral fracture, C7, T1-T9 and L2-L4 transverse process fractures, blunt cardiac trauma and pulmonary embolism, started on Eliquis. He needed chest tubes, 2 surgeries to the R femur. He then started rehab at [facility], but was admitted here (for UTI), then was here in Swing Bed for finishing iv antibx and for continued rehab, until being re-admitted here on 04/29 to Inpt status for bacteremia treatment. Plan: We will continue with oxycodone for managing pain Patient will be continued to be seen by PT and OT. After completing his antibiotics this time, plan is for discharge to home and not to a facility for rehab (6) Separation of left acromioclavicular joint Conclusion/Plan: Plan: We had hoped to have him be able to go to the May 01 and May 02 appointments (see HPI) Continue pain management as in Swing Bed. He still needs surgery at [facility] for the L shoulder separation. He had appointments for: Spine clinic appointment on 05/01/2022 at 1 PM and Orthopedic trauma clinic appointment on 05/02/2022 at 11 AM. He was not able to go to those appointments, discharge planning and delinquency prevention social worker checking to see if they were canceled and to see if [facility] was notified [facility] was not notified so he has been rescheduled. He now has a spine clinic appointment on May 12 at 11:40 AM. Were trying to figure out the logistics of getting him there.Utilization review let us know that because he is in acute care, he will not be able to go to an outpatient clinic. As such she will have to be discharged, and that appointment will have to be rescheduled. (7) PTSD (post-traumatic stress disorder) Conclusion/Plan: This was diagnosed with a telepsych consult while he was in his recent Swing bed status. Plan: Continue with the same management as when he was in swing bed status recently (8) Poor memory Conclusion/Plan: He has needed to be reminded how and with what precautions, and where to ambulate. He is not lethargic or over-sedated with pain meds. He may have had TBI with that fall. We do not know his baseline mental status/ memory before his fall at home, however. Also, when he was febrile 04/29 and 04/30, he was confused, and 05/01 he has no memory of those past 2 days. Since then he is at baseline and orientation. Plan: Continue with reminders and cueing (9) DM type 2 (diabetes mellitus, type 2) Conclusion/Plan: May 04 was 155, 131, 111, 224. Today he is 160, 118. Plan: We ordered carb controlled diet, Hypoglycemia protocol, sliding scale insulin coverage, fingerstick glucose checks and his usual long-acting insulin (10) Hx pulmonary embolism Conclusion/Plan: Plan: We are continuing his usual Eliquis. It was to continue through May 2022.
[2022-05-06] MEDS: ACETAMINOPHEN 325 MG TABLET PO PRN ×4 (00:34→21:55)
[2022-05-06] MEDS: MEROPENEM 1 GM in SODIUM CHLORIDE 0.9% MINIBAG 100 ML IV SCH ×3 (07:00→21:53)
[2022-05-06] MEDS: SODIUM CHLORIDE FLUSH 0.9% 10 ML SYRINGE IVP SCH ×3 (07:08→16:51)
[2022-05-06] MEDS: oxyCODONE 5 MG TABLET PO PRN ×3 (07:08→21:54)
[2022-05-06] MEDS: INSULIN LISPRO 300 UNIT/3 ML PEN SUBQ SCH ×3 (09:30→16:50)
[2022-05-06] MEDS: polyethylene glycoL 3350 17 GM PACKET PO SCH (09:31)
[2022-05-06] MEDS: MULTIVITAMIN W/MINERALS TABLET PO SCH (09:32)
[2022-05-06] MEDS: CHOLECALCIFEROL 25 MCG TABLET PO SCH (09:32)
[2022-05-06] MEDS: SACCHAROMYCES BOULARDII 250 MG CAPSULE PO SCH ×2 (09:32→16:50)
[2022-05-06] MEDS: CALCIUM CARBONATE CHEW 500 MG TABLET PO SCH ×2 (09:32→21:12)
[2022-05-06] MEDS: APIXABAN 5 MG TABLET PO SCH ×2 (09:32→21:11)
[2022-05-06] MEDS: PROPRANOLOL ER 60 MG CAPSULE PO SCH (09:32)
[2022-05-06] MEDS: TAMSULOSIN 0.4 MG CAPSULE PO SCH (09:32)
--- NOTE | 2022-05-06 11:11 | PROVIDER PROGRESS NOTE ---
Subjective - Prog Note Date Prog Note Date: 05/06/22 Prog Note Time: 11:09 - Subjective Subjective: stable complaints. L shoulder, stiffness, back pain, anxiety. But no new ones. denies cp, cough, sob, calf pain Current Medications - Current Medications Current Medications: Active Medications Acetaminophen (Acetaminophen 325 Mg Tablet) 650 mg PO Q4HR PRN PRN Reason: Pain 1 to 4, or Fever Last Admin: 05/06/22 07:08 Dose: 650 mg Acetaminophen (Acetaminophen 325 Mg Tablet) 650 mg PO Q4H PRN PRN Reason: PRN PAIN &/OR FEVER Last Admin: 04/29/22 21:36 Dose: 650 mg Al Hydroxide/Mg Hydroxide (Mag Hydrox/Al Hydrox/Simeth 30 Ml Udc) 30 ml PO Q4H PRN PRN Reason: Heartburn Last Admin: 05/02/22 03:31 Dose: 30 ml Apixaban (Apixaban 5 Mg Tablet) 5 mg PO BID [facility] Last Admin: 05/06/22 09:32 Dose: 5 mg Benzonatate (Benzonatate 100 Mg Capsule) 100 mg PO TID PRN PRN Reason: Cough Calcium Carbonate/Glycine (Calcium Carbonate Chew 500 Mg Tablet) 500 mg PO BID [facility] Last Admin: 05/06/22 09:32 Dose: 500 mg Cholecalciferol (Cholecalciferol 25 Mcg Tablet) 25 mcg PO DAILY [facility] Last Admin: 05/06/22 09:32 Dose: 25 mcg Meropenem 1 gm/ Sodium (Chloride) 100 mls @ 200 mls/hr IV Q8H [facility] Last Infusion: 05/06/22 08:13 Dose: Infused Insulin Human Lispro (Insulin Lispro 300 Unit/3 Ml Pen) 3 unit SUBQ TIDWM [facility] Last Admin: 05/06/22 09:30 Dose: 3 unit Multivitamins/Minerals (Multivitamin W/Minerals Tablet) 1 tab PO DAILYWM [facility] Last Admin: 05/06/22 09:32 Dose: 1 tab Ondansetron HCl (Ondansetron 4 Mg/2 Ml Vial) 4 mg IVP Q6HR PRN PRN Reason: Nausea / Vomiting Oxycodone HCl (Oxycodone 5 Mg Tablet) 5 mg PO Q4H PRN PRN Reason: PAIN 5-7 Last Admin: 05/06/22 07:08 Dose: 5 mg Oxycodone HCl (Oxycodone 5 Mg Tablet) 10 mg PO Q4H PRN PRN Reason: PAIN >8 Polyethylene Glycol (Polyethylene Glycol 3350 17 Gm Packet) 17 gm PO DAILY [facility] Last Admin: 05/06/22 09:31 Dose: 17 gm Propranolol HCl (Propranolol Er 60 Mg Capsule) 60 mg PO DAILY [facility] Last Admin: 05/06/22 09:32 Dose: 60 mg Saccharomyces Boulardii (Saccharomyces Boulardii 250 Mg Capsule) 250 mg PO BIDWM [facility] Last Admin: 05/06/22 09:32 Dose: 250 mg Sodium Chloride (Sodium Chloride Flush 0.9% 10 Ml Syringe) 10 ml IVP PRN PRN PRN Reason: NEEDED PER PROVIDER ORDERS Last Admin: 05/03/22 21:00 Dose: 10 ml Sodium Chloride (Sodium Chloride Flush 0.9% 10 Ml Syringe) 10 ml IVP 0100,0900,1700 [facility] Last Admin: 05/06/22 09:31 Dose: 10 ml Tamsulosin HCl (Tamsulosin 0.4 Mg Capsule) 0.4 mg PO DAILY [facility] Last Admin: 05/06/22 09:32 Dose: 0.4 mg Throat Lozenges (Benzocaine/Menthol Lozenge) 1 lozenge MM Q2HR PRN PRN Reason: Throat pain Last Admin: 05/01/22 01:08 Dose: 1 lozenge Trazodone HCl (Trazodone 50 Mg Tablet) 50 mg PO HS PRN PRN Reason: Insomnia Home meds: Apixaban [Eliquis] 5 mg PO BID 03/30/22 Cholecalciferol [Vitamin D3] 25 mcg PO DAILY 03/30/22 Insulin Lispro [Humalog] 0 - 9 units SQ TID 03/30/22 Multivitamin W/Minerals [Theragran M] 1 each PO DAILY 03/30/22 Oxycodone HCl 10 mg PO Q4H PRN 03/30/22 oxyCODONE [Roxicodone] 5 mg PO Q4H PRN 03/30/22 polyethylene glycoL 3350 [Miralax] 17 gm PO DAILY 03/30/22 Acetaminophen [Tylenol] 650 mg PO Q4H PRN 04/29/22 Calcium Carbonate [Tums (Calcium Carbonate 500mg)] 500 mg PO BID 04/29/22 Insulin Lispro [Humalog Kwikpen U-100] 3 unit SUBQ TIDWM 04/29/22 Lactobacillus Rhamnosus GG [Culturelle] 1 cap PO DAILY 04/29/22 Mag Hydrox/Al Hydrox/Simeth [Mylanta Plus] 30 ml PO Q4H PRN 04/29/22 Propranolol ER [Inderal LA] 60 mg PO DAILY 04/29/22 Saccharomyces Boulardii [Florastor] 250 mg PO BIDWM 04/29/22 Tamsulosin [Flomax] 0.4 mg PO DAILY 04/29/22 traZODone [Desyrel] 50 mg PO HS 04/29/22 Objective - Vital Signs/Intake & Output Reviewed Vital Signs: Yes Vital Signs: Vital Signs x48h Temp Pulse Resp BP Pulse Ox 05/06/22 06:00 36.8 C 70 16 123/75 94 Intake & Output: Intake & Output 05/03/22 05/04/22 05/05/22 05/06/22 23:59 23:59 23:59 23:59 Intake Total 1320 6620.791 6547 820 Output Total 4050 3075 2800 600 Balance -2730 -1445.000 -780 220 - Objective General Appearance: positive: Alert, Other (He is able to get up and ambulate in his room. Goes from supine to sitting to standing and walking without any assist. Is going into the bathroom and out of the bathroom by himself. Dressin g himself. Took a shower or 2.) Eyes Bilateral: positive: PERRL, EOMI ENT: positive: No signs of dehydration Neck: positive: No JVD. negative: Stiff neck Respiratory: positive: No respiratory distress. negative: Wheezes, Rales, Rhonchi Cardiovascular: positive: Regular rate & rhythm Abdomen: positive: Non-tender, No organomegaly, Nml bowel sounds, No distention, Other (Continues to have an interesting left lower quadrant disruption of soft tissue and fascia. There was no surgery there. Is been present since his first admission from the halfway and we wonder if that was just where he landed and hit himself. No hernia.) Skin: positive: Warm, Dry Extremities: positive: Other (Left shoulder joint deformed from AC separation) Neurologic/Psychiatric: positive: Oriented x3, CN's nml (2-12), Motor nml - Lab Results Fish Bones: 05/05/22 04:34 05/05/22 04:34 Other Labs: Lab Results x24hrs 05/06/22 05/05/22 05/05/22 Range/Units 07:28 20:35 16:34 POC Whole Bld Glucose 233 H 171 H 151 H (70 - 100) mg/dL 05/05/22 Range/Units 11:09 POC Whole Bld Glucose 118 H (70 - 100) mg/dL ABX Reporting Has patient been on IV antibiotics over the past 48 hours?: Yes Assessment/Plan - Problem List (1) E coli bacteremia Impression: Patient will require 14 days of antibiotic therapy, possibly 21 days. Urology has been contacted. Nothing to do about the nonobstructing stone at this time. Per urology consult from [facility]. ID from states he will need suppressive therapy until the stones can be addressed. She recommends Macr odantin after the 14 days of meropenem. He is here getting IV antibiotics since the E. coli is resistant to any effective oral treatment such as Levaquin.Macrodantin would not be appropriate to treat bacteremia with Today is day 8/14. I have stopped doing daily labs. His CBC and BMP have been stable. The only chemistry and checking is his glucose. I may check labs again May 08 (2) ESBL producing E coli infection Conclusion/Plan: Urine cx grew the same E coli that he had 4 weeks ago and was treated then with Meropenam for 21 days. It has the same sensitivity profile. This likely points to there being a nidus somewhere, since ID said that we had treated the last ESBL E coli infection long enough. CT abd/pelvis was completed and showed no prostate abnormality, but he has bilateral renal stranding c/w bilateral hydronephrosis. Again the bilateral non- obstructing stones are seen. Urology has reviewed that CT and feels that at this time he does not need a stent. He would like the patient to be referred for evaluation at the stone clinic after discharge Plan: Continue with antibiotics Continue with his Flomax (3) Bilateral pyelonephritis/Complex UTI Conclusion/Plan: As in #1 and #2 (4) Kidney stones, bilateral Conclusion/Plan: Patient has had kidney stones for many years. Passed a kidney stone a week ago and saved into a specimen cup. We are straining his urine again and if he has another stone we will send for culture PTH was drawn 05/04, results pending. I verified with lab today and it has been sent out and they are awaiting results. (5) Hx of multiple trauma Conclusion/Plan: This pt fell 40 feet off a ladder on 03/16/22 and sustained trauma to multiple organs, was air transferred to [facility] where he was hospitalized for 8 days. He had multiple rib fractures, apical pneumothorax, pulmonary laceration, L kidney bleed, retroperitoneal hematoma, splenic laceration, acute blood loss anemia, R femur fracture, L scapula fracture, L iliac fracture, L2 vertebral fracture, C7, T1-T9 and L2-L4 transverse process fractures, blunt cardiac trauma and pulmonary embolism, started on Eliquis. He needed chest tubes, 2 surgeries to the R femur. He then started rehab at [facility], but was admitt ed here (for UTI), then was here in Swing Bed for finishing iv antibx and for continued rehab, until being re-admitted here on 04/29 to Inpt status for bacteremia treatment. Plan: We will continue with oxycodone for managing pain Patient will be continued to be seen by PT and OT. After completing his antibiotics this time, plan is for discharge to home and not to a facility for rehab (6) Separation of left acromioclavicular joint Conclusion/Plan: Plan: We had hoped to have him be able to go to the May 01 and May 02 appointments (see HPI) Continue pain management as in Swing Bed. He still needs surgery at [facility] for the L shoulder separation. He had appointments for: Spine clinic appointment on 05/01/2022 at 1 PM and Orthopedic trauma clinic appointment on 05/02/2022 at 11 AM. He was not able to go to those appointments, discharge planning and social studies teacher checking to see if they were canceled and to see if was notified [facility] was not notified so he has been rescheduled. He now has a spine clinic appointment on May 12 at 11:40 AM. Were trying to figure out the logistics of getting him there. We discussed the case and care conference. He is in acute patient status. He cannot be transferred to another facility and be brought back again for an elective problem if they hope to get reimbursed for this. Since he is acute care, and not swing bed, we can transfer him there and back. Plan: His spine clinic has been rescheduled. I need to find out what day that is. But he has 2 other appointments, I will talk to materials planner to let me know what date and time those others clinic appointments are so I can include them in the medical record. Today is Sunday. We will have to contact them on May 08Sunday (7) PTSD (post-traumatic stress disorder) Conclusion/Plan: This was diagnosed with a telepsych consult while he was in his recent Swing bed status. Plan: Continue with the same management as when he was in swing bed status recently (8) Poor memory Conclusion/Plan: He has needed to be reminded how and with what precautions, and where to ambulate. He is not lethargic or over-sedated with pain meds. He may have had TBI with that fall. We do not know his baseline mental status/ memory before his fall at home, however. Also, when he was febrile 04/29 and 04/30, he was confused, and 05/01 he has no memory of those past 2 days. Since then he is at baseline and orientation. Plan: Continue with reminders and cueing (9) DM type 2 (diabetes mellitus, type 2) Conclusion/Plan: May 05 glucose is 118, 151, 171. Today's glucose is 233 and 99. Plan: We ordered carb controlled diet, Hypoglycemia protocol, sliding scale insulin coverage, fingerstick glucose checks and his usual long-acting insulin (10) Hx pulmonary embolism Conclusion/Plan: Plan: We are continuing his usual Eliquis. It was to continue through May 2022.
[2022-05-06] MEDS: SODIUM CHLORIDE FLUSH 0.9% 10 ML SYRINGE IVP PRN (21:54)
[2022-05-07] MEDS: oxyCODONE 5 MG TABLET PO PRN (02:28)
[2022-05-07] MEDS: SODIUM CHLORIDE FLUSH 0.9% 10 ML SYRINGE IVP SCH ×4 (02:29→17:31)
[2022-05-07] MEDS: ACETAMINOPHEN 325 MG TABLET PO PRN ×2 (02:33→18:49)
[2022-05-07] MEDS: MEROPENEM 1 GM in SODIUM CHLORIDE 0.9% MINIBAG 100 ML IV SCH ×3 (05:49→21:20)
[2022-05-07] MEDS: polyethylene glycoL 3350 17 GM PACKET PO SCH (09:13)
[2022-05-07] MEDS: PROPRANOLOL ER 60 MG CAPSULE PO SCH (09:14)
[2022-05-07] MEDS: INSULIN LISPRO 300 UNIT/3 ML PEN SUBQ SCH ×3 (09:14→17:30)
[2022-05-07] MEDS: CHOLECALCIFEROL 25 MCG TABLET PO SCH (09:15)
[2022-05-07] MEDS: SACCHAROMYCES BOULARDII 250 MG CAPSULE PO SCH ×2 (09:15→17:30)
[2022-05-07] MEDS: MULTIVITAMIN W/MINERALS TABLET PO SCH (09:15)
[2022-05-07] MEDS: CALCIUM CARBONATE CHEW 500 MG TABLET PO SCH ×2 (09:15→21:20)
[2022-05-07] MEDS: APIXABAN 5 MG TABLET PO SCH ×2 (09:15→21:20)
[2022-05-07] MEDS: TAMSULOSIN 0.4 MG CAPSULE PO SCH (09:15)
[2022-05-07] MEDS: SODIUM CHLORIDE FLUSH 0.9% 10 ML SYRINGE IVP PRN (09:16)
--- NOTE | 2022-05-07 14:27 | PROVIDER PROGRESS NOTE ---
Subjective - Prog Note Date Prog Note Date: 05/07/22 Prog Note Time: 14:26 - Subjective Subjective: Alert. Walking the hallways. Appears to not be satisfied with our conversation from May 05. He was unhappy about having to leave here. [place] that he should stay here indefinitely until he felt stable enough to go home. He also feels like he would be casted drift because he will be responsible for making his own appointments. He still wishes that social work would continue to work with him when he left the hospital and making his appointments and his follow- ups. I had set expectations at that point in time. He remembers that conversation but at the same time we have circled back to that conversation today and repeated the same points. He is in no distress. Mainly aches and pains from the rib cage, and lack of motion in the left shoulder from the scapula. Able to weight-bear on both right and left legs. He says that he was able to get some sleep for the first time in a long time. Current Medications - Current Medications Current Medications: Active Medications Acetaminophen (Acetaminophen 325 Mg Tablet) 650 mg PO Q4HR PRN PRN Reason: Pain 1 to 4, or Fever Last Admin: 05/07/22 02:33 Dose: 650 mg Acetaminophen (Acetaminophen 325 Mg Tablet) 650 mg PO Q4H PRN PRN Reason: PRN PAIN &/OR FEVER Last Admin: 05/06/22 21:55 Dose: 650 mg Al Hydroxide/Mg Hydroxide (Mag Hydrox/Al Hydrox/Simeth 30 Ml Udc) 30 ml PO Q4H PRN PRN Reason: Heartburn Last Admin: 05/02/22 03:31 Dose: 30 ml Apixaban (Apixaban 5 Mg Tablet) 5 mg PO BID [facility] Last Admin: 05/07/22 09:15 Dose: 5 mg Benzonatate (Benzonatate 100 Mg Capsule) 100 mg PO TID PRN PRN Reason: Cough Calcium Carbonate/Glycine (Calcium Carbonate Chew 500 Mg Tablet) 500 mg PO BID [facility] Last Admin: 05/07/22 09:15 Dose: 500 mg Cholecalciferol (Cholecalciferol 25 Mcg Tablet) 25 mcg PO DAILY [facility] Last Admin: 05/07/22 09:15 Dose: 25 mcg Meropenem 1 gm/ Sodium (Chloride) 100 mls @ 200 mls/hr IV Q8H [facility] Last Admin: 05/07/22 14:00 Dose: 200 mls/hr Insulin Human Lispro (Insulin Lispro 300 Unit/3 Ml Pen) 3 unit SUBQ TIDWM [facility] Last Admin: 05/07/22 12:16 Dose: 3 unit Multivitamins/Minerals (Multivitamin W/Minerals Tablet) 1 tab PO DAILYWM [facility] Last Admin: 05/07/22 09:15 Dose: 1 tab Ondansetron HCl (Ondansetron 4 Mg/2 Ml Vial) 4 mg IVP Q6HR PRN PRN Reason: Nausea / Vomiting Oxycodone HCl (Oxycodone 5 Mg Tablet) 5 mg PO Q4H PRN PRN Reason: PAIN 5-7 Last Admin: 05/07/22 02:28 Dose: 5 mg Oxycodone HCl (Oxycodone 5 Mg Tablet) 10 mg PO Q4H PRN PRN Reason: PAIN >8 Polyethylene Glycol (Polyethylene Glycol 3350 17 Gm Packet) 17 gm PO DAILY [facility] Last Admin: 05/07/22 09:13 Dose: 17 gm Propranolol HCl (Propranolol Er 60 Mg Capsule) 60 mg PO DAILY [facility] Last Admin: 05/07/22 09:14 Dose: 60 mg Saccharomyces Boulardii (Saccharomyces Boulardii 250 Mg Capsule) 250 mg PO BIDWM [facility] Last Admin: 05/07/22 09:15 Dose: 250 mg Sodium Chloride (Sodium Chloride Flush 0.9% 10 Ml Syringe) 10 ml IVP PRN PRN PRN Reason: NEEDED PER PROVIDER ORDERS Last Admin: 05/07/22 09:16 Dose: 10 ml Sodium Chloride (Sodium Chloride Flush 0.9% 10 Ml Syringe) 10 ml IVP 0100,0900,1700 [facility] Last Admin: 05/07/22 14:01 Dose: 10 ml Tamsulosin HCl (Tamsulosin 0.4 Mg Capsule) 0.4 mg PO DAILY [facility] Last Admin: 05/07/22 09:15 Dose: 0.4 mg Throat Lozenges (Benzocaine/Menthol Lozenge) 1 lozenge MM Q2HR PRN PRN Reason: Throat pain Last Admin: 05/01/22 01:08 Dose: 1 lozenge Trazodone HCl (Trazodone 50 Mg Tablet) 50 mg PO HS PRN PRN Reason: Insomnia Apixaban [Eliquis] 5 mg PO BID 03/30/22 Cholecalciferol [Vitamin D3] 25 mcg PO DAILY 03/30/22 Insulin Lispro [Humalog] 0 - 9 units SQ TID 03/30/22 Multivitamin W/Minerals [Theragran M] 1 each PO DAILY 03/30/22 Oxycodone HCl 10 mg PO Q4H PRN 03/30/22 oxyCODONE [Roxicodone] 5 mg PO Q4H PRN 03/30/22 polyethylene glycoL 3350 [Miralax] 17 gm PO DAILY 03/30/22 Acetaminophen [Tylenol] 650 mg PO Q4H PRN 04/29/22 Calcium Carbonate [Tums (Calcium Carbonate 500mg)] 500 mg PO BID 04/29/22 Insulin Lispro [Humalog Kwikpen U-100] 3 unit SUBQ TIDWM 04/29/22 Lactobacillus Rhamnosus GG [Culturelle] 1 cap PO DAILY 04/29/22 Mag Hydrox/Al Hydrox/Simeth [Mylanta Plus] 30 ml PO Q4H PRN 04/29/22 Propranolol ER [Inderal LA] 60 mg PO DAILY 04/29/22 Saccharomyces Boulardii [Florastor] 250 mg PO BIDWM 04/29/22 Tamsulosin [Flomax] 0.4 mg PO DAILY 04/29/22 traZODone [Desyrel] 50 mg PO HS 04/29/22 Objective - Vital Signs/Intake & Output Reviewed Vital Signs: Yes Vital Signs: Vital Signs x48h Temp Pulse Resp BP Pulse Ox 05/07/22 07:27 36.1 C L 73 18 107/68 97 Intake & Output: Intake & Output 05/04/22 05/05/22 05/06/22 05/07/22 23:59 23:59 23:59 23:59 Intake Total 0048.310 1466 2710 1650 Output Total 3075 2800 3950 3300 Balance -1445.000 -780 -1240 -1220 - Objective General Appearance: positive: Alert, Other (This morning was asleep and woke up easily. This afternoon he is watching football game, in a recliner, legs up, legs crossed, blnket on his lap) Eyes Bilateral: positive: PERRL, EOMI ENT: positive: No signs of dehydration Neck: positive: No JVD. negative: Stiff neck Respiratory: positive: No respiratory distress. negative: Wheezes, Rales, Rhonchi Cardiovascular: positive: Regular rate & rhythm Abdomen: positive: Non-tender, No organomegaly, Nml bowel sounds, No distention Skin: positive: Warm, Dry Extremities: positive: No pedal edema Neurologic/Psychiatric: positive: Oriented x3, CN's nml (2-12), Motor nml - Lab Results Fish Bones: 05/05/22 04:34 05/05/22 04:34 Other Labs: Lab Results x24hrs 05/07/22 05/07/22 05/06/22 Range/Units 11:05 07:21 20:37 POC Whole Bld Glucose 124 H 127 H 176 H (70 - 100) mg/dL 05/06/22 Range/Units 16:33 POC Whole Bld Glucose 157 H (70 - 100) mg/dL ABX Reporting Has patient been on IV antibiotics over the past 48 hours?: Yes Assessment/Plan - Problem List (1) E coli bacteremia Impression: Patient will require 14 days of antibiotic therapy, possibly 21 days. Urology has been contacted. Nothing to do about the nonobstructing stone at this time. Per urology consult from [facility]. ID from states he will need suppressive therapy until the stones can be addressed. She recommends Macrodantin after the 14 days of meropenem. He is here getting IV antibiotics since the E. coli is resistant to any effective oral treatment such as Levaquin.Macrodantin would not be appropriate to treat bacteremia with Today is day 914. I have stopped doing daily labs. His CBC and BMP have been stable. The only chemistry is checking is his glucose. I have ordered labs for May 08 (2) ESBL producing E coli infection Conclusion/Plan: Urine cx grew the same E coli that he had 4 weeks ago and was treated then with Meropenam for 21 days. It has the same sensitivity profile. This likely points to there being a nidus somewhere, since ID said that we had treated the last ESBL E coli infection long enough. CT abd/pelvis was completed and showed no prostate abnormality, but he has bilateral renal stranding c/w bilateral hydronephrosis. Again the bilateral non- obstructing stones are seen. Urology has reviewed that CT and feels that at this time he does not need a stent. He would like the patient to be referred for evaluation at the stone clinic after discharge Plan: Continue with antibiotics Continue with his Flomax (3) Bilateral pyelonephritis/Complex UTI Conclusion/Plan: As in #1 and #2 Resolved or Stable problems: (4) Kidney stones, bilateral Conclusion/Plan: Patient has had kidney stones for many years. Passed a kidney stone a week ago and saved into a specimen cup. We are straining his urine again and if he has another stone we will send for culture PTH was drawn 05/04, results pending. I verified with lab today and it has been sent out and they are awaiting results. (5) Hx of multiple trauma Conclusion/Plan: This pt fell 40 feet off a ladder on 03/16/22 and sustained trauma to multiple organs, was air transferred to [facility] where he was hospitalized for 8 days. He had multiple rib fractures, apical pneumothorax, pulmonary laceration, L kidney bleed, retroperitoneal hematoma, splenic laceration, acute blood loss anemia, R femur fracture, L scapula fracture, L iliac fracture, L2 vertebral fracture, C7, T1-T9 and L2-L4 transverse process fractures, blunt cardiac trauma and pulmonary embolism, started on Eliquis. He needed chest tubes, 2 surgeries to the R femur. He then started rehab at [facility], but was admitted here (for UTI), then was here in Swing Bed for finishing iv antibx and for continued rehab, until being re-admitted here on 04/29 to Inpt status for bacteremia treatment. Plan: We will continue with oxycodone for managing pain Patient will be continued to be seen by PT and OT. After completing his antibiotics this time, plan is for discharge to home and not to a facility for rehab (6) Separation of left acromioclavicular joint Conclusion/Plan: Plan: We had hoped to have him be able to go to the May 01 and May 02 appointments (see HPI) Continue pain management as in Swing Bed. He still needs surgery at [facility] for the L shoulder separation. He had appointments for: Spine clinic appointment on 05/01/2022 at 1 PM and Orthopedic trauma clinic appointment on 05/02/2022 at 11 AM. He was not able to go to those appointments, discharge planning and bilingual social worker checking to see if they were canceled and to see if [facility] was notified [facility] was not notified so he has been rescheduled. He now has a spine clinic appointment on May 12 at 11:40 AM. Were trying to figure out the logistics of getting him there. We discussed the case and care conference. He is in acute patient status. He cannot be transferred to another facility and be brought back again for an elective problem if they hope to get reimbursed for this. Since he is acute care, and not swing bed, we can transfer him there and back. Plan: His spine clinic has been rescheduled. I need to find out what day that is. But he has 2 other appointments, I will talk to business planner to let me know what date and time those others clinic appointments are so I can include them in the medical record. Today is Sunday. We will have to contact them on May 08Sunday (7) PTSD (post-traumatic stress disorder) Conclusion/Plan: This was diagnosed with a telepsych consult while he was in his recent Swing bed status. Plan: Continue with the same management as when he was in swing bed status recently (8) Poor memory Conclusion/Plan: He has needed to be reminded how and with what precautions, and where to ambulate. He is not lethargic or over-sedated with pain meds. He may have had TBI with that fall. We do not know his baseline mental status/ memory before his fall at home, however. Also, when he was febrile 12/3 and 12/4, he was confused, and 05/01 he has no memory of those past 2 days. Since then he is at baseline and orientation. Plan: Continue with reminders and cueing (9) DM type 2 (diabetes mellitus, type 2) Conclusion/Plan: May 06 glucose 233, 99, 157, 176. Today glucose 127, 124 Plan: We ordered carb controlled diet, Hypoglycemia protocol, sliding scale insulin coverage, fingerstick glucose checks and his usual long-acting insulin (10) Hx pulmonary embolism Conclusion/Plan: Plan: We are continuing his usual Eliquis. It was to continue through May 2022.
[2022-05-08] MEDS: SODIUM CHLORIDE FLUSH 0.9% 10 ML SYRINGE IVP SCH ×4 (01:30→22:25)
[2022-05-08] MEDS: ACETAMINOPHEN 325 MG TABLET PO PRN ×3 (01:30→21:56)
[2022-05-08 06:09] LABS: BASOPHILS % (AUTO) 0.6 %; EOSINOPHILS # (AUTO) 0.2 10^3/uL (0.0-0.7); EOSINOPHILS % (AUTO) 3.2 %; HCT - HEMATOCRIT 39.4 % (42.0-52.0); HGB - HEMOGLOBIN 12.4 g/dL (14.0-18.0); LYMPHOCYTES # (AUTO) 1.7 10^3/uL (1.5-3.5); LYMPHOCYTES % (AUTO) 23.2 %; MEAN CORPUSCULAR HEMOGLOBIN 27.6 pg (27.0-31.0); MEAN CORPUSCULAR HGB CONC 31.5 g/dL (32.0-36.0); MEAN CORPUSCULAR VOLUME 87.8 fL (80.0-94.0); MEAN PLATELET VOLUME 9.1 fL (7.4-11.4); MONOCYTES # (AUTO) 0.7 10^3/uL (0.0-1.0); MONOCYTES % (AUTO) 9.1 %; NEUTROPHILS # (AUTO) 4.5 10^3/uL (1.5-6.6); NEUTROPHILS % (AUTO) 62.9 %; PLT - PLATELET COUNT 359 10^3/uL (130-450); RED BLOOD COUNT 4.49 10^6/uL (4.70-6.10); RED CELL DISTRIBUTION WIDTH 15.5 % (12.0-15.0); WHITE BLOOD COUNT 7.2 x10^3/uL (4.8-10.8)
[2022-05-08 06:22] LABS: ALBUMIN 3.1 g/dL (3.2-5.5); ALBUMIN/GLOBULIN RATIO 0.9 (1.0-2.2); BILIRUBIN,TOTAL 0.4 mg/dL (0.2-1.0); CALCIUM 9.3 mg/dL (8.5-10.3); POTASSIUM 4.7 mmol/L (3.5-5.0); TOTAL PROTEIN 6.4 g/dL (6.7-8.2)
[2022-05-08] MEDS: MEROPENEM 1 GM in SODIUM CHLORIDE 0.9% MINIBAG 100 ML IV SCH ×3 (06:48→21:55)
[2022-05-08] MEDS: INSULIN LISPRO 300 UNIT/3 ML PEN SUBQ SCH ×3 (09:18→16:47)
[2022-05-08] MEDS: SACCHAROMYCES BOULARDII 250 MG CAPSULE PO SCH ×2 (09:19→16:46)
[2022-05-08] MEDS: APIXABAN 5 MG TABLET PO SCH ×2 (09:19→21:56)
[2022-05-08] MEDS: polyethylene glycoL 3350 17 GM PACKET PO SCH (09:19)
[2022-05-08] MEDS: PROPRANOLOL ER 60 MG CAPSULE PO SCH (09:19)
[2022-05-08] MEDS: MULTIVITAMIN W/MINERALS TABLET PO SCH (09:19)
[2022-05-08] MEDS: CALCIUM CARBONATE CHEW 500 MG TABLET PO SCH ×2 (09:19→21:55)
[2022-05-08] MEDS: CHOLECALCIFEROL 25 MCG TABLET PO SCH (09:19)
[2022-05-08] MEDS: TAMSULOSIN 0.4 MG CAPSULE PO SCH (09:19)
[2022-05-08] MEDS: oxyCODONE 5 MG TABLET PO PRN ×2 (09:20→18:47)
--- NOTE | 2022-05-08 15:58 | PROVIDER PROGRESS NOTE ---
Subjective - Prog Note Date Prog Note Date: 05/08/22 Prog Note Time: 15:55 - Subjective Subjective: A little frustrated today. Trying to get Medicaid reinstated. He is on hold with a government agency. Otherwise no new complaints. No chest pain, palpitations, shortness of breath. Same musculoskeletal aches and pains. Eating well. Said for the last 2 nights is actually slept well. Current Medications - Current Medications Current Medications: Active Medications Acetaminophen (Acetaminophen 325 Mg Tablet) 650 mg PO Q4HR PRN PRN Reason: Pain 1 to 4, or Fever Last Admin: 05/08/22 09:20 Dose: 650 mg Acetaminophen (Acetaminophen 325 Mg Tablet) 650 mg PO Q4H PRN PRN Reason: PRN PAIN &/OR FEVER Last Admin: 05/07/22 18:49 Dose: 650 mg Al Hydroxide/Mg Hydroxide (Mag Hydrox/Al Hydrox/Simeth 30 Ml Udc) 30 ml PO Q4H PRN PRN Reason: Heartburn Last Admin: 05/02/22 03:31 Dose: 30 ml Apixaban (Apixaban 5 Mg Tablet) 5 mg PO BID [facility] Last Admin: 05/08/22 09:19 Dose: 5 mg Benzonatate (Benzonatate 100 Mg Capsule) 100 mg PO TID PRN PRN Reason: Cough Calcium Carbonate/Glycine (Calcium Carbonate Chew 500 Mg Tablet) 500 mg PO BID [facility] Last Admin: 05/08/22 09:19 Dose: 500 mg Cholecalciferol (Cholecalciferol 25 Mcg Tablet) 25 mcg PO DAILY [facility] Last Admin: 05/08/22 09:19 Dose: 25 mcg Meropenem 1 gm/ Sodium (Chloride) 100 mls @ 200 mls/hr IV Q8H [facility] Last Infusion: 05/08/22 14:30 Dose: Infused Insulin Human Lispro (Insulin Lispro 300 Unit/3 Ml Pen) 3 unit SUBQ TIDWM [facility] Last Admin: 05/08/22 11:56 Dose: 3 unit Multivitamins/Minerals (Multivitamin W/Minerals Tablet) 1 tab PO DAILYWM [facility] Last Admin: 05/08/22 09:19 Dose: 1 tab Ondansetron HCl (Ondansetron 4 Mg/2 Ml Vial) 4 mg IVP Q6HR PRN PRN Reason: Nausea / Vomiting Oxycodone HCl (Oxycodone 5 Mg Tablet) 5 mg PO Q4H PRN PRN Reason: PAIN 5-7 Last Admin: 05/08/22 09:20 Dose: 5 mg Oxycodone HCl (Oxycodone 5 Mg Tablet) 10 mg PO Q4H PRN PRN Reason: PAIN >8 Polyethylene Glycol (Polyethylene Glycol 3350 17 Gm Packet) 17 gm PO DAILY [facility] Last Admin: 05/08/22 09:19 Dose: 17 gm Propranolol HCl (Propranolol Er 60 Mg Capsule) 60 mg PO DAILY [facility] Last Admin: 05/08/22 09:19 Dose: 60 mg Saccharomyces Boulardii (Saccharomyces Boulardii 250 Mg Capsule) 250 mg PO BIDWM [facility] Last Admin: 05/08/22 09:19 Dose: 250 mg Sodium Chloride (Sodium Chloride Flush 0.9% 10 Ml Syringe) 10 ml IVP PRN PRN PRN Reason: NEEDED PER PROVIDER ORDERS Last Admin: 05/07/22 09:16 Dose: 10 ml Sodium Chloride (Sodium Chloride Flush 0.9% 10 Ml Syringe) 10 ml IVP 0100,0900,1700 [facility] Last Admin: 05/08/22 06:48 Dose: 10 ml Tamsulosin HCl (Tamsulosin 0.4 Mg Capsule) 0.4 mg PO DAILY [facility] Last Admin: 05/08/22 09:19 Dose: 0.4 mg Throat Lozenges (Benzocaine/Menthol Lozenge) 1 lozenge MM Q2HR PRN PRN Reason: Throat pain Last Admin: 05/01/22 01:08 Dose: 1 lozenge Trazodone HCl (Trazodone 50 Mg Tablet) 50 mg PO HS PRN PRN Reason: Insomnia Apixaban [Eliquis] 5 mg PO BID 03/30/22 Cholecalciferol [Vitamin D3] 25 mcg PO DAILY 03/30/22 Insulin Lispro [Humalog] 0 - 9 units SQ TID 03/30/22 Multivitamin W/Minerals [Theragran M] 1 each PO DAILY 03/30/22 Oxycodone HCl 10 mg PO Q4H PRN 03/30/22 oxyCODONE [Roxicodone] 5 mg PO Q4H PRN 03/30/22 polyethylene glycoL 3350 [Miralax] 17 gm PO DAILY 03/30/22 Acetaminophen [Tylenol] 650 mg PO Q4H PRN 04/29/22 Calcium Carbonate [Tums (Calcium Carbonate 500mg)] 500 mg PO BID 04/29/22 Insulin Lispro [Humalog Kwikpen U-100] 3 unit SUBQ TIDWM 04/29/22 Lactobacillus Rhamnosus GG [Culturelle] 1 cap PO DAILY 04/29/22 Mag Hydrox/Al Hydrox/Simeth [Mylanta Plus] 30 ml PO Q4H PRN 04/29/22 Propranolol ER [Inderal LA] 60 mg PO DAILY 04/29/22 Saccharomyces Boulardii [Florastor] 250 mg PO BIDWM 04/29/22 Tamsulosin [Flomax] 0.4 mg PO DAILY 04/29/22 traZODone [Desyrel] 50 mg PO HS 04/29/22 Objective - Vital Signs/Intake & Output Reviewed Vital Signs: Yes Vital Signs: Vital Signs x48h Temp Pulse Resp BP Pulse Ox 05/08/22 15:51 36.6 C 82 16 119/73 97 05/08/22 11:48 36.5 C 91 20 115/67 97 Intake & Output: Intake & Output 05/05/22 05/06/22 05/07/22 05/08/22 23:59 23:59 23:59 23:59 Intake Total 2019 2710 2780 1316 Output Total 2800 3950 4350 3225 Balance -780 -1240 -1570 -1909 - Objective General Appearance: positive: Alert, Other (Tall 84 kg male, ambulates without assistance in his room.) Eyes Bilateral: positive: PERRL, EOMI ENT: positive: Pharynx nml Neck: positive: No JVD. negative: Stiff neck Respiratory: positive: No respiratory distress. negative: Wheezes, Rales, Rhonchi Cardiovascular: positive: Regular rate & rhythm Abdomen: positive: Non-tender, Nml bowel sounds, No distention Skin: positive: Warm, Dry Extremities: positive: No pedal edema, Other (Left AC joint separation) Neurologic/Psychiatric: positive: Oriented x3, CN's nml (2-12), Motor nml - Lab Results Fish Bones: 05/08/22 05:42 05/08/22 05:42 Other Labs: Lab Results x24hrs 05/08/22 05/08/22 05/08/22 Range/Units 11:44 07:43 05:42 WBC (4.8-10.8) x10^3/uL RBC (4.70-6.10) 10^6/uL Hgb (14.0-18.0) g/dL Hct (42.0-52.0) % MCV (80.0-94.0) fL MCH (27.0-31.0) pg MCHC (32.0-36.0) g/dL RDW (12.0-15.0) % Plt Count (130-450) 10^3/uL MPV (7.4-11.4) fL Neut # (Auto) (1.5-6.6) 10^3/uL Lymph # (Auto) (1.5-3.5) 10^3/uL Upson # (Auto) (0.0-1.0) 10^3/uL Eos # (Auto) (0.0-0.7) 10^3/uL Baso # (Auto) (0.0-0.1) 10^3/uL Absolute Nucleated RBC x10^3/uL Nucleated RBC % /100WBC Sodium 139 (135-145) mmol/L Potassium 4.7 (3.5-5.0) mmol/L Chloride 104 (101-111) mmol/L Carbon Dioxide 27 (21-32) mmol/L Anion Gap 8.0 (6-13) BUN 30 H (6-20) mg/dL Creatinine 1.0 (0.6-1.2) mg/dL Estimated GFR (MDRD) 75 L (>89) Glucose 146 H (70-100) mg/dL POC Whole Bld Glucose 136 H 264 H (70 - 100) mg/dL Calcium 9.3 (8.5-10.3) mg/dL Total Bilirubin 0.4 (0.2-1.0) mg/dL AST 23 (10-42) IU/L ALT 28 (10-60) IU/L Alkaline Phosphatase 193 H (42-121) IU/L Total Protein 6.4 L (6.7-8.2) g/dL Albumin 3.1 L (3.2-5.5) g/dL Globulin 3.3 (2.1-4.2) g/dL Albumin/Globulin Ratio 0.9 L (1.0-2.2) 05/08/22 05/07/22 05/07/22 Range/Units 05:42 20:31 16:32 WBC 7.2 (4.8-10.8) x10^3/uL RBC 4.49 L (4.70-6.10) 10^6/uL Hgb 12.4 L (14.0-18.0) g/dL Hct 39.4 L (42.0-52.0) % MCV 87.8 (80.0-94.0) fL MCH 27.6 (27.0-31.0) pg MCHC 31.5 L (32.0-36.0) g/dL RDW 15.5 H (12.0-15.0) % Plt Count 359 (130-450) 10^3/uL MPV 9.1 (7.4-11.4) fL Neut # (Auto) 4.5 (1.5-6.6) 10^3/uL Lymph # (Auto) 1.7 (1.5-3.5) 10^3/uL Upson # (Auto) 0.7 (0.0-1.0) 10^3/uL Eos # (Auto) 0.2 (0.0-0.7) 10^3/uL Baso # (Auto) 0.0 (0.0-0.1) 10^3/uL Absolute Nucleated RBC 0.00 x10^3/uL Nucleated RBC % 0.0 /100WBC Sodium (135-145) mmol/L Potassium (3.5-5.0) mmol/L Chloride (101-111) mmol/L Carbon Dioxide (21-32) mmol/L Anion Gap (6-13) BUN (6-20) mg/dL Creatinine (0.6-1.2) mg/dL Estimated GFR (MDRD) (>89) Glucose (70-100) mg/dL POC Whole Bld Glucose 141 H 191 H (70 - 100) mg/dL Calcium (8.5-10.3) mg/dL Total Bilirubin (0.2-1.0) mg/dL AST (10-42) IU/L ALT (10-60) IU/L Alkaline Phosphatase (42-121) IU/L Total Protein (6.7-8.2) g/dL Albumin (3.2-5.5) g/dL Globulin (2.1-4.2) g/dL Albumin/Globulin Ratio (1.0-2.2) Assessment/Plan - Problem List (1) E coli bacteremia Impression: Patient will require 14 days of antibiotic therapy, possibly 21 days. Urology has been contacted. Nothing to do about the nonobstructing stone at this time. Per urology consult from [facility]. ID from states he will need suppressive therapy until the stones can be addressed. She recommends Macrodantin after the 14 days of meropenem. He is here getting IV antibiotics since the E. coli is resistant to any effective oral treatment such as Levaquin. Today is day 03/10. I have stopped doing daily labs. His CBC and BMP have been stable. I check labs today. BUN is slightly high at 30. Creatinine is 1.0. CBC shows a normal white cell count, mild chronic normocytic anemia of 12.4. Platelets 359. Plan: Discharge on May 12. He is sad about that. He feels very safe here. Sent home on Macrodantin suppressive therapy per ID recommendations at . (2) ESBL producing E coli infection Conclusion/Plan: Urine cx grew the same E coli that he had 4 weeks ago and was treated then with Meropenam for 21 days. It has the same sensitivity profile. This likely points to there being a nidus somewhere, since ID said that we had treated the last ESBL E coli infection long enough. CT abd/pelvis was completed and showed no prostate abnormality, but he has bilateral renal stranding c/w bilateral hydronephrosis. Again the bilateral non- obstructing stones are seen. Urology From [facility] has reviewed that CT (This was recommended by ID at [facility]) and he feels that at this time he does not need a stent. He would like the patient to be referred for evaluation at the stone clinic after discharge. Plan: Continue with antibiotics Continue with his Flomax I spoke to his primary care provider today, SHAKA Cope, explained the situation to her. She will make the referral to [facility] urology stone clinic for follow-up. ID feels is important to remove this nidus of infection. Until he gets to see them he stays on Macrodantin suppressive therapy. (3) Bilateral pyelonephritis/Complex UTI Conclusion/Plan: As in #1 and #2 Resolved or Stable problems: (4) Kidney stones, bilateral Conclusion/Plan: Patient has had kidney stones for many years. Passed a kidney stone a week ago and saved into a specimen cup. We are straining his urine again and if he has another stone we will send for culture PTH was drawn 05/04, results pending. I verified with lab 05/06 and 05/08 and it has been sent out and they are awaiting results. Lab today said 5-10 business days. (5) Hx of multiple trauma Conclusion/Plan: This pt fell 40 feet off a ladder on 03/16/22 and sustained trauma to multiple organs, was air transferred to [facility] where he was hospitalized for 8 days. He had multiple rib fractures, apical pneumothorax, pulmonary laceration, L kidney bleed, retroperitoneal hematoma, splenic laceration, acute blood loss anemia, R femur fracture, L scapula fracture, L iliac fracture, L2 vertebral fracture, C7, T1-T9 and L2-L4 transverse process fractures, blunt cardiac trauma and pulmonary embolism, started on Eliquis. He needed chest tubes, 2 surgeries to the R femur. He then started rehab at [facility], but was admitted here (for UTI), then was here in Swing Bed for finishing iv antibx and for continued rehab, until being re-admitted here on 04/29 to Inpt status for bacteremia treatment. Plan: We will continue with oxycodone for managing pain. He has been taking 3-4 tablets a day for 4 days now. Patient will be continued to be seen by PT and OT and they recommend Home Health PT/OT so that was ordered 05/08. After completing his antibiotics this time, plan is for discharge to home and not to a facility for rehab (6) Separation of left acromioclavicular joint Conclusion/Plan: Plan: We had hoped to have him be able to go to the May 01 and May 02 appointments (see HPI) Continue pain management as in Swing Bed. He still needs surgery at [facility] for the L shoulder separation. He had appointments for: Spine clinic appointment on 05/01/2022 at 1 PM and Orthopedic trauma clinic appointment on 05/02/2022 at 11 AM. He was not able to go to those appointments, discharge planning and social media specialist checking to see if they were canceled and to see if was notified and we found out [facility] was not notified. so he has been rescheduled. He now has a spine clinic appointment on May 12 at 11:40 AM. Were trying to figure out the logistics of getting him there. We discussed the case and care conference. He is in acute patient status. He cannot be transferred to another facility and be brought back again for an elective problem if they hope to get reimbursed for this. Since he is acute car e, and not swing bed, we cannot transfer him there and back. Plan: Spine clinic appointment is May 19 at 1 PM. Orthopedic trauma clinic, [facility], is scheduled for May 23 at 1 PM. His primary care provider is referring him to the urology stone clinic and we do not have access to that scheduling (7) PTSD (post-traumatic stress disorder) Conclusion/Plan: This was diagnosed with a telepsych consult while he was in his recent Swing bed status. Plan: Continue with the same management as when he was in swing bed status recently (8) Poor memory Conclusion/Plan: He has needed to be reminded how and with what precautions, and where to ambulate. He is not lethargic or over-sedated with pain meds. He may have had TBI with that fall. We do not know his baseline mental status/ memory before his fall at home, however. Also, when he was febrile 12/3 and 12/4, he was confused, and 05/01 he has no memory of those past 2 days. Since then he is at baseline and orientation. Plan: Continue with reminders and cueing (9) DM type 2 (diabetes mellitus, type 2) Conclusion/Plan: Glucose today is 264 this morning, 136 for lunch glucose yesterday 127, 124, 191, 141 Plan: We ordered carb controlled diet, Hypoglycemia protocol, sliding scale insulin coverage, fingerstick glucose checks and his usual long-acting insulin (10) Hx pulmonary embolism Conclusion/Plan: Plan: We are continuing his usual Eliquis. It was to continue through May 2022.
[2022-05-08] MEDS: SODIUM CHLORIDE FLUSH 0.9% 10 ML SYRINGE IVP PRN (21:56)
[2022-05-09] MEDS: oxyCODONE 5 MG TABLET PO PRN ×3 (03:52→21:26)
[2022-05-09] MEDS: MEROPENEM 1 GM in SODIUM CHLORIDE 0.9% MINIBAG 100 ML IV SCH ×3 (06:45→21:27)
[2022-05-09] MEDS: SODIUM CHLORIDE FLUSH 0.9% 10 ML SYRINGE IVP PRN (06:46)
[2022-05-09] MEDS: PROPRANOLOL ER 60 MG CAPSULE PO SCH (08:52)
[2022-05-09] MEDS: CHOLECALCIFEROL 25 MCG TABLET PO SCH (08:52)
[2022-05-09] MEDS: CALCIUM CARBONATE CHEW 500 MG TABLET PO SCH ×2 (08:52→21:26)
[2022-05-09] MEDS: polyethylene glycoL 3350 17 GM PACKET PO SCH (08:52)
[2022-05-09] MEDS: APIXABAN 5 MG TABLET PO SCH ×2 (08:52→21:26)
[2022-05-09] MEDS: MULTIVITAMIN W/MINERALS TABLET PO SCH (08:52)
[2022-05-09] MEDS: SACCHAROMYCES BOULARDII 250 MG CAPSULE PO SCH ×2 (08:52→17:01)
[2022-05-09] MEDS: ACETAMINOPHEN 325 MG TABLET PO PRN ×3 (08:52→21:26)
[2022-05-09] MEDS: TAMSULOSIN 0.4 MG CAPSULE PO SCH (08:52)
[2022-05-09] MEDS: INSULIN LISPRO 300 UNIT/3 ML PEN SUBQ SCH ×3 (08:53→17:01)
[2022-05-09] MEDS: SODIUM CHLORIDE FLUSH 0.9% 10 ML SYRINGE IVP SCH ×2 (08:53→17:01)
--- NOTE | 2022-05-09 15:20 | PROVIDER PROGRESS NOTE ---
Assessment/Plan - Problem List (1) E coli bacteremia Assessment/Plan: Patient will require 14 days of antibiotic therapy, possibly 21 days. Urology has been contacted. Nothing to do about the nonobstructing stone at this time. Per urology consult from [facility]. ID from states he will need suppressive therapy until the stones can be addressed. She recommends Macrodantin after the 14 days of meropenem. He is here getting IV antibiotics since the E. coli is resistant to any effective oral treatment such as Levaquin. Today is day 04/10. We have stopped doing daily labs. His CBC and BMP have been relatively stable. CBC shows a normal white cell count, mild chronic normocytic anemia of 12.4. Platelets 359. Plan: Discharge on May 12. He is sad about that. He feels very safe here. Will be sent home on Macrodantin suppressive therapy per ID recommendations at . (2) ESBL producing E coli infection Conclusion/Plan: Urine cx grew the same E coli that he had 4 weeks ago and was treated then with Meropenam for 21 days. It has the same sensitivity profile. This likely points to there being a nidus somewhere, since ID said that we had treated the last ESBL E coli infection long enough. CT abd/pelvis was completed and showed no prostate abnormality, but he has bilateral renal stranding c/w bilateral hydronephrosis with this newest infection. Again the bilateral non-obstructing stones are seen. Urology From [facility] has reviewed that CT (This was recommended by ID at [facility]) and he feels that at this time he does not need a stent. He would like the patient to be referred for evaluation at the stone clinic after discharge. Plan: Continue with antibiotics Continue with his Flomax The last Hospitalist spoke to his primary care provider, SHAKA Cope, explained the situation to her. She will make the referral to [facility] Urology stone clinic for follow-up. ID feels is important to remove this nidus of infection. Until he gets to see them he stays on Macrodantin suppressive therapy. (3) Bilateral pyelonephritis/Complex UTI Conclusion/Plan: As in #1 and #2 (4) Kidney stones, bilateral Conclusion/Plan: Patient has had kidney stones for many years. Passed a kidney stone a week ago and saved into a specimen cup. We are straining his urine again and if he has another stone we will send for culture PTH was drawn 05/04, results pending. We verified with lab 05/06 and 05/08 and it has been sent out and they are awaiting results. Lab today said 5-10 business days. (5) Hx of multiple trauma Conclusion/Plan: This pt fell 40 feet off a ladder on 03/16/22 and sustained trauma to multiple organs, was air transferred to [facility] where he was hospitalized for 8 days. He had multiple rib fractures, apical pneumothorax, pulmonary laceration, L kidney bleed, retroperitoneal hematoma, splenic laceration, acute blood loss ane dami, R femur fracture, L scapula fracture, L iliac fracture, L2 vertebral fracture, C7, T1-T9 and L2-L4 transverse process fractures, blunt cardiac trauma and pulmonary embolism, started on Eliquis. He needed chest tubes, 2 surgeries to the R femur. He then started rehab at [facility], but was admitted here (for UTI), then was here in Swing Bed for finishing iv antibx and for continued rehab, until being re-admitted here on 04/29 to Inpt status for bacteremia treatment. Plan: We will continue with oxycodone for managing pain. He has been taking 3-4 tablets a day for days now. Patient will be continued to be seen by PT and OT and they recommend Home Health PT/OT so that was ordered 05/08. After completing his antibiotics this time, plan is for discharge to home and not to a facility for rehab (6) Separation of left acromioclavicular joint Conclusion/Plan: Plan: We had hoped to have him be able to go to the May 01 and May 02 appointments (see HPI) Continue pain management as was being done in in Swing Bed. He still needs surgery at [facility] for the L shoulder separation. He had appointments for: Spine clinic appointment on 05/01/2022 at 1 PM and Orthopedic trauma clinic appointment on 05/02/2022 at 11 AM. He was not able to go to those appointments, discharge planning and social work associate checked to see if they were canceled and to see if was notified and we found out [facility] was not notified. So he has been rescheduled. He now has a spine clinic appointment on May 12 at 11:40 AM. Were trying to figure out the logistics of getting him there since he needs antibx here until the afternoon of 05/12. We discussed the case and care conference. He is in acute patient status. He cannot be transferred to another facility and be brought back again for an elective problem if they hope to get reimbursed for this. Since he is acute care, and not swing bed, we cannot transfer him there and back. Plan: Spine clinic appointment is May 19 at 1 PM. Orthopedic trauma clinic, [facility], is scheduled for May 23 at 1 PM. His primary care provider is referring him to the Urology stone clinic and we do not have access to that scheduling (7) PTSD (post-traumatic stress disorder) Conclusion/Plan: This was diagnosed with a telepsych consult while he was in his recent Swing bed status. Plan: Continue with the same management as when he was in swing bed status recently (8) Poor memory Conclusion/Plan: He has needed to be reminded how and with what precautions, and where to ambulate. He is not lethargic or over-sedated with pain meds. He may have had TBI with that fall. We do not know his baseline mental status/ memory before his fall at home, however. Also, when he was febrile 04/29 and 04/30, he was confused, and 05/01 he has no memory of those previous 2 days. Since then he is at baseline and orientation. Plan: Continue with reminders and cueing (9) DM type 2 (diabetes mellitus, type 2) Conclusion/Plan: Glucose runs 120-200. Plan: Cont carb controlled diet, Hypoglycemia protocol, sliding scale insulin coverage, fingerstick glucose checks and his usual long-acting insulin (10) Hx pulmonary embolism Conclusion/Plan: Plan: We are continuing his usual Eliquis. It was to continue through May 2022. - Current Meds Current Meds: Current Medications Generic Name Dose Route Start Last Admin Trade Name Freq PRN Reason Stop Dose Admin Acetaminophen 650 mg 04/29/22 10:41 05/09/22 13:44 Acetaminophen 325 Mg Tablet PO 650 mg Q4HR PRN Administration Pain 1 to 4, or Fever Acetaminophen 650 mg 04/29/22 11:29 05/07/22 18:49 Acetaminophen 325 Mg Tablet PO 650 mg Q4H PRN Administration PRN PAIN &/OR FEVER Al Hydroxide/Mg Hydroxide 30 ml 04/29/22 11:29 05/02/22 03:31 Mag Hydrox/Al Hydrox/Simeth 30 Ml Udc PO 30 ml Q4H PRN Administration Heartburn Apixaban 5 mg 04/29/22 21:00 05/09/22 08:52 Apixaban 5 Mg Tablet PO 5 mg BID FEROZ Administration Calcium Carbonate/Glycine 500 mg 04/29/22 21:00 05/09/22 08:52 Calcium Carbonate Chew 500 Mg Tablet PO 500 mg BID FEROZ Administration Cholecalciferol 25 mcg 04/30/22 09:00 05/09/22 08:52 Cholecalciferol 25 Mcg Tablet PO 25 mcg DAILY FEROZ Administration Meropenem 1 gm/ Sodium 100 mls @ 200 mls/hr 04/29/22 12:00 05/09/22 14:14 Chloride IV Infused Q8H FEROZ Infusion Insulin Human Lispro 3 unit 04/29/22 12:00 05/09/22 11:45 Insulin Lispro 300 Unit/3 Ml Pen SUBQ 3 unit TIDWM FEROZ Administration Multivitamins/Minerals 1 tab 04/30/22 08:00 05/09/22 08:52 Multivitamin W/Minerals Tablet PO 1 tab DAILYWM FEROZ Administration Oxycodone HCl 5 mg 04/29/22 11:29 05/09/22 13:44 Oxycodone 5 Mg Tablet PO 5 mg Q4H PRN Administration PAIN 5-7 Polyethylene Glycol 17 gm 04/30/22 09:00 05/09/22 08:52 Polyethylene Glycol 3350 17 Gm Packet PO 17 gm DAILY FEROZ Administration Propranolol HCl 60 mg 05/01/22 09:00 05/09/22 08:52 Propranolol Er 60 Mg Capsule PO 60 mg DAILY FEROZ Administration Saccharomyces Boulardii 250 mg 04/29/22 17:00 05/09/22 08:52 Saccharomyces Boulardii 250 Mg Capsule PO 250 mg BIDWM FEROZ Administration Sodium Chloride 10 ml 04/29/22 10:41 05/09/22 06:46 Sodium Chloride Flush 0.9% 10 Ml Syringe IVP 10 ml PRN PRN Administration NEEDED PER PROVIDER ORDERS Sodium Chloride 10 ml 04/29/22 17:00 05/09/22 08:53 Sodium Chloride Flush 0.9% 10 Ml Syringe IVP 10 ml 0100,0900,1700 FEROZ Administration Tamsulosin HCl 0.4 mg 04/30/22 09:00 05/09/22 08:52 Tamsulosin 0.4 Mg Capsule PO 0.4 mg DAILY FEROZ Administration Throat Lozenges 1 lozenge 05/01/22 00:15 05/01/22 01:08 Benzocaine/Menthol Lozenge MM 1 lozenge Q2HR PRN Administration Throat pain - Lab Result Fish Bone Diagrams: 05/08/22 05:42 05/08/22 05:42 Subjective - Subjective Patient Reports: No Complaints Objective Vital Signs: Vital Signs - 24 hr 05/08/22 05/09/22 05/09/22 15:51 03:34 07:31 Temperature 36.6 C 36.5 C 36.3 C L Heart Rate [ 82 71 74 Brachial] Respiratory 16 18 18 Rate Blood Pressure 119/73 110/67 111/73 [Right Brachial artery] O2 Saturation 97 94 95 Oxygen O2 Source Room air I&O (Last 24 Hrs): Intake and Output Totals x24h 05/07/22 05/08/22 05/09/22 23:59 23:59 23:59 Intake Total 2780 2312 1012 Output Total 4350 3900 2200 Balance -1570 -1588 -1188 General: Alert, Oriented x3 HEENT: Mucous membr. moist/pink Neck: Supple, No JVD Neuro: Alert, Other (Poor memory) Cardiovascular: Regular rate Respiratory: No respiratory distress Abdomen: Soft Extremities: No clubbing, No edema, Other (Walks with a slight limp) - Results Results: Laboratory Results WBC 7.2 x10^3/uL (4.8-10.8) 05/08/22 05:42 RBC 4.49 10^6/uL (4.70-6.10) L 05/08/22 05:42 Hgb 12.4 g/dL (14.0-18.0) L 05/08/22 05:42 Hct 39.4 % (42.0-52.0) L 05/08/22 05:42 MCV 87.8 fL (80.0-94.0) 05/08/22 05:42 MCH 27.6 pg (27.0-31.0) 05/08/22 05:42 MCHC 31.5 g/dL (32.0-36.0) L 05/08/22 05:42 RDW 15.5 % (12.0-15.0) H 05/08/22 05:42 Plt Count 359 10^3/uL (130-450) 05/08/22 05:42 MPV 9.1 fL (7.4-11.4) 05/08/22 05:42 Neut # (Auto) 4.5 10^3/uL (1.5-6.6) 05/08/22 05:42 Lymph # (Auto) 1.7 10^3/uL (1.5-3.5) 05/08/22 05:42 [place] # (Auto) 0.7 10^3/uL (0.0-1.0) 05/08/22 05:42 Eos # (Auto) 0.2 10^3/uL (0.0-0.7) 05/08/22 05:42 Baso # (Auto) 0.0 10^3/uL (0.0-0.1) 05/08/22 05:42 Absolute Nucleated RBC 0.00 x10^3/uL 05/08/22 05:42 Nucleated RBC % 0.0 /100WBC 05/08/22 05:42 Sodium 139 mmol/L (135-145) 05/08/22 05:42 Potassium 4.7 mmol/L (3.5-5.0) 05/08/22 05:42 Chloride 104 mmol/L (101-111) 05/08/22 05:42 Carbon Dioxide 27 mmol/L (21-32) 05/08/22 05:42 Anion Gap 8.0 (6-13) 05/08/22 05:42 BUN 30 mg/dL (6-20) H 05/08/22 05:42 Creatinine 1.0 mg/dL (0.6-1.2) 05/08/22 05:42 Estimated GFR (MDRD) 75 (>89) L 05/08/22 05:42 Glucose 146 mg/dL (70-100) H 05/08/22 05:42 POC Whole Bld Glucose 146 mg/dL (70 - 100) H 05/09/22 11:17 Lactic Acid 2.1 mmol/L (0.5-2.2) 04/29/22 09:41 Calcium 9.3 mg/dL (8.5-10.3) 05/08/22 05:42 Magnesium 2.0 mg/dL (1.7-2.8) 05/01/22 06:47 Total Bilirubin 0.4 mg/dL (0.2-1.0) 05/08/22 05:42 AST 23 IU/L (10-42) 05/08/22 05:42 ALT 28 IU/L (10-60) 05/08/22 05:42 Alkaline Phosphatase 193 IU/L (42-121) H 05/08/22 05:42 Total Protein 6.4 g/dL (6.7-8.2) L 05/08/22 05:42 Albumin 3.1 g/dL (3.2-5.5) L 05/08/22 05:42 Globulin 3.3 g/dL (2.1-4.2) 05/08/22 05:42 Albumin/Globulin Ratio 0.9 (1.0-2.2) L 05/08/22 05:42
[2022-05-10] MEDS: SODIUM CHLORIDE FLUSH 0.9% 10 ML SYRINGE IVP SCH ×3 (03:16→17:11)
[2022-05-10] MEDS: MEROPENEM 1 GM in SODIUM CHLORIDE 0.9% MINIBAG 100 ML IV SCH ×3 (05:38→21:04)
[2022-05-10] MEDS: ACETAMINOPHEN 325 MG TABLET PO PRN ×3 (08:16→21:03)
[2022-05-10] MEDS: MULTIVITAMIN W/MINERALS TABLET PO SCH (08:18)
[2022-05-10] MEDS: SACCHAROMYCES BOULARDII 250 MG CAPSULE PO SCH ×2 (08:18→17:11)
[2022-05-10] MEDS: INSULIN LISPRO 300 UNIT/3 ML PEN SUBQ SCH ×3 (08:20→17:11)
[2022-05-10] MEDS: APIXABAN 5 MG TABLET PO SCH ×2 (10:53→21:04)
[2022-05-10] MEDS: PROPRANOLOL ER 60 MG CAPSULE PO SCH (10:54)
[2022-05-10] MEDS: CHOLECALCIFEROL 25 MCG TABLET PO SCH (10:54)
[2022-05-10] MEDS: CALCIUM CARBONATE CHEW 500 MG TABLET PO SCH ×2 (10:55→21:04)
[2022-05-10] MEDS: TAMSULOSIN 0.4 MG CAPSULE PO SCH (10:55)
[2022-05-10] MEDS: polyethylene glycoL 3350 17 GM PACKET PO SCH (10:56)
[2022-05-10] MEDS: oxyCODONE 5 MG TABLET PO PRN ×2 (16:18→21:04)
--- NOTE | 2022-05-10 16:29 | PROVIDER PROGRESS NOTE ---
Assessment/Plan - Problem List (1) E coli bacteremia Assessment/Plan: Patient will require 14 days of antibiotic therapy, possibly 21 days. Urology has been contacted. Nothing to do about the nonobstructing stone at this time. Per urology consult from [facility]. ID from states he will need suppressive therapy until the stones can be addressed. She recommends Macrodantin after the 14 days of meropenem. He is here getting IV antibiotics since the E. coli is resistant to any effective oral treatment such as Levaquin. Today is day #12 of 14. We have stopped doing daily labs. His CBC and BMP have been relatively stable. CBC shows a normal white cell count, mild chronic normocytic anemia of 12.4. Platelets 359. Plan: Discharge in the afternoon of Sunday, May 12. He is sad about that. He feels very safe here. Will be sent home on Macrodantin suppressive therapy per ID recommendations at . This was discussed with the pt today. (2) ESBL producing E coli infection Conclusion/Plan: Urine cx grew the same E coli that he had 4 weeks ago and was treated then with Meropenam for 21 days. It has the same sensitivity profile. This likely points to there being a nidus somewhere, since ID said that we had treated the last ESBL E coli infection long enough. CT abd/pelvis was completed and showed no prostate abnormality, but he has bilateral renal stranding c/w bilateral hydronephrosis with this newest infection. Again the bilateral non-obstructing stones are seen. Urology From [facility] has reviewed that CT (This was recommended by ID at [facility]) and he feels that at this time he does not need a stent. He would like the patient to be referred for evaluation at the stone clinic after discharge. Plan: Continue with antibiotics Continue with his Flomax The last Hospitalist spoke to his primary care provider, SHAKA Cope, explained the situation to her. She will make the referral to [facility] Urology stone clinic for follow-up. ID feels is important to remove this nidus of infection. Until he gets to see them he stays on Macrodantin suppressive therapy. (3) Bilateral pyelonephritis/Complex UTI Conclusion/Plan: As in #1 and #2 (4) Kidney stones, bilateral Conclusion/Plan: Patient has had kidney stones for many years. Passed a kidney stone a week ago and saved into a specimen cup. We are straining his urine again and if he has another stone we will send for culture PTH was drawn 05/04, results pending. We verified with lab 05/06 and 05/08 and it has been sent out and they are awaiting results. Lab today said 5-10 business days. (5) Hx of multiple trauma Conclusion/Plan: This pt fell 40 feet off a ladder on 03/16/22 and sustained trauma to multiple organs, was air transferred to [facility] where he was hospitalized for 8 days. He had multiple rib fractures, apical pneumothorax, pulmonary laceration, L kidney bleed, retroperitoneal hematoma, splenic laceration, acute blood loss anemia, R femur fracture, L scapula fracture, L iliac fracture, L2 vertebral fracture, C7, T1-T9 and L2-L4 transverse process fractures, blunt cardiac trauma and pulmonary embolism, started on Eliquis. He needed chest tubes, 2 surgeries to the R femur. He then started rehab at [facility], but was admitted here (for UTI), then was here in Swing Bed for finishing iv antibx and for continued rehab, until being re-admitted here on 04/29 to Inpt status for bacteremia treatment. Plan: We will continue with oxycodone for managing pain. He has been taking 3-4 tablets a day for days now. Patient will be continued to be seen by PT and OT and they recommend Home Health PT/OT so that was ordered 05/08. After completing his antibiotics this time, plan is for discharge to home and not to a facility for rehab. There will be restrictiopns from driving for a while. (6) Separation of left acromioclavicular joint Conclusion/Plan: Plan: We had hoped to have him be able to go to the May 01 and May 02 appointments (see HPI) Continue pain management as was being done in in Swing Bed. He still needs surgery at [facility] for the L shoulder separation. He had appointments for: Spine clinic appointment on 05/01/2022 at 1 PM and Orthopedic trauma clinic appointment on 05/02/2022 at 11 AM. He was not able to go to those appointments, discharge planning and family welfare social work professor checked to see if they were canceled and to see if was notified and we found out [facility] was not notified. So he has been rescheduled. He now has a spine clinic appointment on May 12 at 11:40 AM. Were trying to figure out the logistics of getting him there since he needs antibx here until the afternoon of 05/12. We discussed the case and care conference. He is in acute patient status. He cannot be transferred to another facility and be brought back again for an elective problem if they hope to get reimbursed for this. Since he is acute care, and not swing bed, we cannot transfer him there and back. Plan: Spine clinic appointment is May 19 at 1 PM. Orthopedic trauma clinic, [facility], is scheduled for May 23 at 1 PM. His primary care provider is referring him to the Urology stone clinic and we do not have access to that scheduling (7) PTSD (post-traumatic stress disorder) Conclusion/Plan: This was diagnosed with a telepsych consult while he was in his recent Swing bed status. Plan: Continue with the same management as when he was in swing bed status recently (8) Poor memory Conclusion/Plan: He has needed to be reminded how and with what precautions, and where to ambulate. He is not lethargic or over-sedated with pain meds. He may have had TBI with that fall. We do not know his baseline mental status/ memory before his fall at home, however. Also, when he was febrile 04/29 and 04/30, he was confused, and 05/01 he has no memory of those previous 2 days. Since then he is at baseline and orientation. Plan: Continue with reminders and cueing (9) DM type 2 (diabetes mellitus, type 2) Conclusion/Plan: Glucose runs 120-200. Plan: Cont carb controlled diet, Hypoglycemia protocol, sliding scale insulin coverage, fingerstick glucose checks and his usual long-acting insulin (10) Hx pulmonary embolism Conclusion/Plan: Plan: We are continuing his usual Eliquis. It was to continue through May 2022. - Current Meds Current Meds: Current Medications Generic Name Dose Route Start Last Admin Trade Name Freq PRN Reason Stop Dose Admin Acetaminophen 650 mg 04/29/22 10:41 05/10/22 16:17 Acetaminophen 325 Mg Tablet PO 325 mg Q4HR PRN Administration Pain 1 to 4, or Fever Acetaminophen 650 mg 04/29/22 11:29 05/07/22 18:49 Acetaminophen 325 Mg Tablet PO 650 mg Q4H PRN Administration PRN PAIN &/OR FEVER Al Hydroxide/Mg Hydroxide 30 ml 04/29/22 11:29 05/02/22 03:31 Mag Hydrox/Al Hydrox/Simeth 30 Ml Udc PO 30 ml Q4H PRN Administration Heartburn Apixaban 5 mg 04/29/22 21:00 05/10/22 10:53 Apixaban 5 Mg Tablet PO 5 mg BID FEROZ Administration Calcium Carbonate/Glycine 500 mg 04/29/22 21:00 05/10/22 10:55 Calcium Carbonate Chew 500 Mg Tablet PO 500 mg BID FEROZ Administration Cholecalciferol 25 mcg 04/30/22 09:00 05/10/22 10:54 Cholecalciferol 25 Mcg Tablet PO 25 mcg DAILY FEROZ Administration Meropenem 1 gm/ Sodium 100 mls @ 200 mls/hr 04/29/22 12:00 05/10/22 14:36 Chloride IV Infused Q8H FEROZ Infusion Insulin Human Lispro 3 unit 04/29/22 12:00 05/10/22 11:51 Insulin Lispro 300 Unit/3 Ml Pen SUBQ 3 unit TIDWM [facility] Administration Multivitamins/Minerals 1 tab 04/30/22 08:00 05/10/22 08:18 Multivitamin W/Minerals Tablet PO 1 tab DAILYWM [facility] Administration Oxycodone HCl 5 mg 04/29/22 11:29 05/10/22 16:18 Oxycodone 5 Mg Tablet PO 5 mg Q4H PRN Administration PAIN 5-7 Oxycodone HCl 10 mg 04/29/22 12:00 05/10/22 08:15 Oxycodone 5 Mg Tablet PO 10 mg Q4H PRN Administration PAIN >8 Polyethylene Glycol 17 gm 04/30/22 09:00 05/10/22 10:56 Polyethylene Glycol 3350 17 Gm Packet PO 17 gm DAILY FEROZ Administration Propranolol HCl 60 mg 05/01/22 09:00 05/10/22 10:54 Propranolol Er 60 Mg Capsule PO 60 mg DAILY FEROZ Administration Saccharomyces Boulardii 250 mg 04/29/22 17:00 05/10/22 08:18 Saccharomyces Boulardii 250 Mg Capsule PO 250 mg BIDWM FEROZ Administration Sodium Chloride 10 ml 04/29/22 10:41 05/09/22 06:46 Sodium Chloride Flush 0.9% 10 Ml Syringe IVP 10 ml PRN PRN Administration NEEDED PER PROVIDER ORDERS Sodium Chloride 10 ml 04/29/22 17:00 05/10/22 10:57 Sodium Chloride Flush 0.9% 10 Ml Syringe IVP 10 ml 0100,0900,1700 FEROZ Administration Tamsulosin HCl 0.4 mg 04/30/22 09:00 05/10/22 10:55 Tamsulosin 0.4 Mg Capsule PO 0.4 mg DAILY FEROZ Administration Throat Lozenges 1 lozenge 05/01/22 00:15 05/01/22 01:08 Benzocaine/Menthol Lozenge MM 1 lozenge Q2HR PRN Administration Throat pain - Lab Result Fish Bone Diagrams: 05/08/22 05:42 05/08/22 05:42 Subjective - Subjective Patient Reports: Resting Comfortably, No Complaints, Other (wAlks with a limp, but needs no walker or cane.) Objective Vital Signs: Vital Signs - 24 hr 05/10/22 05/10/22 05/10/22 03:00 07:25 15:30 Temperature 36.2 C L 36.2 C L 36.5 C Heart Rate [ 72 79 78 Brachial] Respiratory 16 18 18 Rate Blood Pressure 122/73 113/74 112/69 [Right Brachial artery] O2 Saturation 97 93 94 Oxygen O2 Source Room air I&O (Last 24 Hrs): Intake and Output Totals x24h 05/08/22 05/09/22 05/10/22 23:59 23:59 23:59 Intake Total 2312 1872 1208 Output Total 3901 9337 0511 [facility] -[phone] General: Alert, Oriented x3 HEENT: Mucous membr. moist/pink Neck: Supple, No JVD Neuro: Alert, Non Focal Cardiovascular: Regular rate, No murmurs Respiratory: No respiratory distress Abdomen: Soft Extremities: No clubbing, No edema - Results Results: Laboratory Results WBC 7.2 x10^3/uL (4.8-10.8) 05/08/22 05:42 RBC 4.49 10^6/uL (4.70-6.10) L 05/08/22 05:42 Hgb 12.4 g/dL (14.0-18.0) L 05/08/22 05:42 Hct 39.4 % (42.0-52.0) L 05/08/22 05:42 MCV 87.8 fL (80.0-94.0) 05/08/22 05:42 MCH 27.6 pg (27.0-31.0) 05/08/22 05:42 MCHC 31.5 g/dL (32.0-36.0) L 05/08/22 05:42 RDW 15.5 % (12.0-15.0) H 05/08/22 05:42 Plt Count 359 10^3/uL (130-450) 05/08/22 05:42 MPV 9.1 fL (7.4-11.4) 05/08/22 05:42 Neut # (Auto) 4.5 10^3/uL (1.5-6.6) 05/08/22 05:42 Lymph # (Auto) 1.7 10^3/uL (1.5-3.5) 05/08/22 05:42 [place] # (Auto) 0.7 10^3/uL (0.0-1.0) 05/08/22 05:42 Eos # (Auto) 0.2 10^3/uL (0.0-0.7) 05/08/22 05:42 Baso # (Auto) 0.0 10^3/uL (0.0-0.1) 05/08/22 05:42 Absolute Nucleated RBC 0.00 x10^3/uL 05/08/22 05:42 Nucleated RBC % 0.0 /100WBC 05/08/22 05:42 Sodium 139 mmol/L (135-145) 05/08/22 05:42 Potassium 4.7 mmol/L (3.5-5.0) 05/08/22 05:42 Chloride 104 mmol/L (101-111) 05/08/22 05:42 Carbon Dioxide 27 mmol/L (21-32) 05/08/22 05:42 Anion Gap 8.0 (6-13) 05/08/22 05:42 BUN 30 mg/dL (6-20) H 05/08/22 05:42 Creatinine 1.0 mg/dL (0.6-1.2) 05/08/22 05:42 Estimated GFR (MDRD) 75 (>89) L 05/08/22 05:42 Glucose 146 mg/dL (70-100) H 05/08/22 05:42 POC Whole Bld Glucose 143 mg/dL (70 - 100) H 05/10/22 11:21 Lactic Acid 2.1 mmol/L (0.5-2.2) 04/29/22 09:41 Calcium 9.3 mg/dL (8.5-10.3) 05/08/22 05:42 Magnesium 2.0 mg/dL (1.7-2.8) 05/01/22 06:47 Total Bilirubin 0.4 mg/dL (0.2-1.0) 05/08/22 05:42 AST 23 IU/L (10-42) 05/08/22 05:42 ALT 28 IU/L (10-60) 05/08/22 05:42 Alkaline Phosphatase 193 IU/L (42-121) H 05/08/22 05:42 Total Protein 6.4 g/dL (6.7-8.2) L 05/08/22 05:42 Albumin 3.1 g/dL (3.2-5.5) L 05/08/22 05:42 Globulin 3.3 g/dL (2.1-4.2) 05/08/22 05:42 Albumin/Globulin Ratio 0.9 (1.0-2.2) L 05/08/22 05:42
[2022-05-11] MEDS: SODIUM CHLORIDE FLUSH 0.9% 10 ML SYRINGE IVP SCH ×3 (02:45→17:41)
[2022-05-11] MEDS: MEROPENEM 1 GM in SODIUM CHLORIDE 0.9% MINIBAG 100 ML IV SCH ×3 (05:30→21:05)
[2022-05-11] MEDS: ACETAMINOPHEN 325 MG TABLET PO PRN ×3 (08:05→21:05)
[2022-05-11] MEDS: oxyCODONE 5 MG TABLET PO PRN ×3 (08:05→19:17)
[2022-05-11] MEDS: INSULIN LISPRO 300 UNIT/3 ML PEN SUBQ SCH ×3 (09:46→17:40)
[2022-05-11] MEDS: APIXABAN 5 MG TABLET PO SCH ×2 (09:50→21:05)
[2022-05-11] MEDS: MULTIVITAMIN W/MINERALS TABLET PO SCH (09:50)
[2022-05-11] MEDS: PROPRANOLOL ER 60 MG CAPSULE PO SCH (09:51)
[2022-05-11] MEDS: CALCIUM CARBONATE CHEW 500 MG TABLET PO SCH ×2 (09:53→21:04)
[2022-05-11] MEDS: TAMSULOSIN 0.4 MG CAPSULE PO SCH (09:54)
[2022-05-11] MEDS: SACCHAROMYCES BOULARDII 250 MG CAPSULE PO SCH ×2 (09:54→17:41)
[2022-05-11] MEDS: CHOLECALCIFEROL 25 MCG TABLET PO SCH (09:54)
[2022-05-11] MEDS: polyethylene glycoL 3350 17 GM PACKET PO SCH (09:57)
--- NOTE | 2022-05-11 15:19 | Discharge Plan ---
Discharge Plan Problem Reviewed?: Yes Disposition: Home Health Service Condition: Fair Prescriptions: L. Acidophilus/Pectin, [place] [Acidophilus-Pectin Captab] 1 each PO DAILY #30 tablet Blood-Glucose Meter [Glucometer] 1 each MC DAILY #1 each Nitrofurantoin Macrocrystal [Macrodantin] 100 mg PO DAILY #30 cap Metformin HCl [Metformin ER Gastric] 1,000 mg PO BID #120 tab Oxycodone HCl 10 mg PO Q6H PRN #20 tab PRN Reason: Severe Pain Lancets/Blood Glucose Strips [Pogo Automatic Test Cartridge] 1 each MC DAILY #30 ea oxyCODONE [Roxicodone] 5 mg PO Q6H PRN #20 tab PRN Reason: Pain 5-7 Diet: Diabetic Activity Restrictions: Activity as Tolerated Shower Restrictions: No Driving Restrictions: Yes (No driving til released by a doctor resume drive) Assistance Devices: Cane Weight Bearing: Full Weight Instruction Topics: ESBL Infec Health Concerns: You were hospitalized after you sustained multiple trauma and needed rehab. Then you had a complex urinary tract infection which needed inpatient treatment, then you were back in rehab for a period of time but had a fever and had regrowth of that bacteria, both in the urine and you bloodstream. You have now completed a second course of antibiotics. After we spoke specialist, it has been determined that your kidney stones may be harboring the site of bacteria which need attention by Urology, after discharge. You have several appointments upcoming, please keep those appointments. (Urology, Orthopedic Trauma Blue Team and Spine Clinic). At your request, the Insulin was not dosed for you to use after discharge. We are resuming your Metformin ER, and it was newly prescribed. Also there are prescriptions for lancets and glucometer strips and a new glucometer, for you to check your fingerstick glucose levels. Please use the prescriptions for pain medications sparingly. Please follow the list of medications that is provided here. You need to continue doing rehab for strengthening, as everything heals. A referral was sent to a Home Health Agency for you to get PT and OT at home, and RN to check if everything is proceeding successfully. Also, coordinating all of your care going forward for you, is your primary care provider, Floridalma Marrero NP. Call her office with any questions or requests. Plan of Treatment: As above. Care Goals: Improvement in symptoms and stabilization are the goals. Assessment: The patient understands and is agreeable with the plan. Additional Instructions or Follow Up instructions: If you have new or worsening symptoms, call your PCP for advice or come to the ER. Follow-Up Care: Home Health - RN, Home Health - PT, Home Health - OT No Smoking: If you smoke, Please STOP! Call for help. Follow-up with: Rosario Marrero ARNP [Credentialed Staff Provider] -
--- NOTE | 2022-05-11 15:45 | PROVIDER PROGRESS NOTE ---
Subjective - Subjective Pt reports feeling: No change (Still has pain in the hips when he walks) Objective - Vital Signs/Intake & Output Intake & Output: Intake & Output 05/08/22 05/09/22 05/10/22 05/11/22 23:59 23:59 23:59 23:59 Intake Total 2312 1872 1928 1752 Output Total 3900 2650 4125 2200 Balance -1588 -778 -2197 -448 - Objective General Appearance: positive: No acute distress, Alert Eyes Bilateral: positive: Normal inspection, EOMI ENT: positive: ENT inspection nml, No signs of dehydration Neck: positive: Nml inspection, No JVD Respiratory: positive: No respiratory distress Cardiovascular: positive: Regular rate & rhythm Abdomen: positive: Non-tender, No distention Skin: positive: Warm, Dry Extremities: positive: No pedal edema Neurologic/Psychiatric: positive: Oriented x3, Other (Poor memory) - Lab Results Fish Bones: 05/08/22 05:42 05/08/22 05:42 Other Labs: Lab Results x24hrs 05/11/22 05/11/22 05/10/22 Range/Units 11:12 07:24 16:44 POC Whole Bld Glucose 118 H 210 H 142 H (70 - 100) mg/dL Assessment/Plan - Problem List (1) E coli bacteremia Impression: Patient will require 14 days of antibiotic therapy, possibly 21 days. Urology has been contacted. Nothing to do about the nonobstructing stone at this time. Per urology consult from [facility]. ID from states he will need suppressive therapy until the stones can be addressed. She recommends Macrodantin after the 14 days of meropenem. He is here getting IV antibiotics since the E. coli is resistant to any effective oral treatment such as Levaquin. Today is day #12 of 14. We have stopped doing daily labs. His CBC and BMP have been relatively stable. CBC shows a normal white cell count, mild chronic normocytic anemia of 12.4. Platelets normal. Plan: Discharge tomorrow afternoon May 12, after last dose of iv antibx. Will be sent home on Macrodantin suppressive therapy per ID recommendations at . This was discussed with the pt today. (2) ESBL producing E coli infection Conclusion/Plan: Urine cx grew the same E coli that he had 4 weeks ago and was treated then with Meropenam for 21 days. It has the same sensitivity profile. This likely points t o there being a nidus somewhere, since ID said that we had treated the last ESBL E coli infection long enough. CT abd/pelvis was completed and showed no prostate abnormality, but he has bilateral renal stranding c/w bilateral hydronephrosis with this newest infection. Again the bilateral non-obstructing stones are seen. Urology From [facility] has reviewed that CT (This was recommended by ID at [facility]) and he feels that at this time he does not need a stent. He would like the patient to be referred for evaluation at the stone clinic after discharge. Plan: Continue with antibiotics Continue with his Flomax The last Hospitalist spoke to his primary care provider, SHAKA Cope, explained the situation to her. She will make the referral to [facility] Urology stone clinic for follow-up. ID feels is important to remove this nidus of infection. Until he gets to see them he stays on Macrodantin suppressive therapy. (3) Bilateral pyelonephritis/Complex UTI Conclusion/Plan: As in #1 and #2 (4) Kidney stones, bilateral Conclusion/Plan: Patient has had kidney stones for many years. Passed a kidney stone a week ago and saved into a specimen cup. We are straining his urine again and if he has another stone we will send for culture PTH was drawn 05/04, results pending. We verified with lab 05/06 and 05/08 and it has been sent out and they are awaiting results. Lab said 5-10 business days. (5) Hx of multiple trauma Conclusion/Plan: This pt fell 40 feet off a ladder on 03/16/22 and sustained trauma to multiple organs, was air transferred to [facility] where he was hospitalized for 8 days. He had multiple rib fractures, apical pneumothorax, pulmonary laceration, L kidney bleed, retroperitoneal hematoma, splenic laceration, acute blood loss anemia, R femur fracture, L scapula fracture, L iliac fracture, L2 vertebral fracture, C7, T1-T9 and L2-L4 transverse process fractures, blunt cardiac trauma and pulmonary embolism, started on Eliquis. He needed chest tubes, 2 surgeries to the R femur. He then started rehab at [facility], but was admitted here (for UTI), then was here in Swing Bed for finishing iv antibx and for continued rehab, until being re-admitted here on 04/29 to Inpt status for malena teremia treatment. Plan: We will continue with oxycodone for managing pain. He has been taking 5mg for modr pain and 10 mg for severe pain Patient will be continued to be seen by PT and OT and they recommended Home Health PT/OT so HH was ordered on 05/08. After completing his antibiotics this time, plan is for discharge to home and not to a facility for rehab. There will be restrictions from driving for a while. (6) Separation of left acromioclavicular joint Conclusion/Plan: Plan: We had hoped to have him be able to go to the May 01 and May 02 appointments (see HPI) Continue pain management as was being done in in Swing Bed. He still needs surgery at [facility] for the L shoulder separation. He had appointments for: Spine clinic appointment on 05/01/2022 at 1 PM and Orthopedic trauma clinic appointment on 05/02/2022 at 11 AM. He was not able to go to those appointments, discharge planning and licensed master social worker checked to see if they were canceled and to see if was notified and we found out [facility] was not notified. So he has been rescheduled. He now has a spine clinic appointment on May 12 at 11:40 AM. Were trying to figure out the logistics of getting him there since he needs antibx here until the afternoon of 05/12. We discussed the case and care conference. He is in acute patient status. He cannot be transferred to another facility and be brought back again for an elective problem if they hope to get reimbursed for this. Since he is acute care, and not swing bed, we cannot transfer him there and back. Plan: Spine clinic appointment is May 19 at 1 PM. Orthopedic trauma clinic, John erickson, is scheduled for May 23 at 1 PM. His primary care provider is referring him to the Urology stone clinic and we do not have access to that scheduling (7) PTSD (post-traumatic stress disorder) Conclusion/Plan: This was diagnosed with a telepsych consult while he was in his recent Swing bed status. Plan: Continue with the same management as when he was in swing bed status (8) Poor memory Conclusion/Plan: He has needed to be reminded how and with what precautions, and where to ambulate. He is not lethargic or over-sedated with pain meds. He may have had TBI with that fall. We do not know his baseline mental status/ memory before his fall at home, however. Also, when he was febrile 04/29 and 04/30, he was confused, and 05/01 he has no memory of those previous 2 days. Since then he is at baseline and orientation. Plan: Continue with reminders and cueing (9) DM type 2 (diabetes mellitus, type 2) Conclusion/Plan: Glucose runs 120-200. Plan: Cont carb controlled diet, Hypoglycemia protocol, insulin cis only with meals, fingerstick glucose checks (10) Hx pulmonary embolism Conclusion/Plan: Plan: We are continuing his usual Eliquis. It was to continue through May 2022.
[2022-05-12] MEDS: SODIUM CHLORIDE FLUSH 0.9% 10 ML SYRINGE IVP SCH ×2 (00:41→05:28)
[2022-05-12] MEDS: ACETAMINOPHEN 325 MG TABLET PO PRN ×2 (00:41→11:01)
[2022-05-12] MEDS: oxyCODONE 5 MG TABLET PO PRN ×2 (05:26→11:02)
[2022-05-12] MEDS: MEROPENEM 1 GM in SODIUM CHLORIDE 0.9% MINIBAG 100 ML IV SCH ×2 (05:28→13:09)
[2022-05-12] MEDS: INSULIN LISPRO 300 UNIT/3 ML PEN SUBQ SCH ×2 (08:09→11:56)
[2022-05-12] MEDS: PROPRANOLOL ER 60 MG CAPSULE PO SCH (08:11)
[2022-05-12] MEDS: CALCIUM CARBONATE CHEW 500 MG TABLET PO SCH (08:11)
[2022-05-12] MEDS: SACCHAROMYCES BOULARDII 250 MG CAPSULE PO SCH (08:11)
[2022-05-12] MEDS: TAMSULOSIN 0.4 MG CAPSULE PO SCH (08:11)
[2022-05-12] MEDS: CHOLECALCIFEROL 25 MCG TABLET PO SCH (08:11)
[2022-05-12] MEDS: APIXABAN 5 MG TABLET PO SCH (08:11)
[2022-05-12] MEDS: MULTIVITAMIN W/MINERALS TABLET PO SCH (08:11)
[2022-05-12] MEDS: polyethylene glycoL 3350 17 GM PACKET PO SCH (08:17)
[2022-05-12 12:34] VITALS: BP 117/70
--- NOTE | 2022-05-12 14:17 | DISCHARGE SUMMARY ---
Discharge Summary Admit Date: 04/29/22 Discharge Date: 05/12/22 Discharging Provider: Dr Ariana Chacko Primary Care Provider: ALINA Marrero Condition at Discharge: Fair Discharge Disposition: [facility] History of Present Illness: Mr. Carias is a 66 year old man who is being admitted from Swing bed status to Inpatient status due to fever and bacteremia. This pt fell 40 feet off a ladder on 03/16/22 and sustained trauma to multiple organs, was air transferred to [facility] where he was hospitalized for 8 days. He had multiple rib fractures, apical pneumothorax, pulmonary laceration, L kidney bleed, retroperitoneal hematoma, splenic laceration, acute blood loss anemia, R femur fracture, L scapula fracture, L iliac fracture, L2 vertebral fracture, C7, T1-T9 and L2-L4 transverse process fractures, blunt cardiac trauma and pulmonary embolism, started on Eliquis. He needed chest tubes, 2 surgeries to the R femur. He then was discharged for rehab to [facility], but was admitted here for a complex UTI (which grew E. coli, ESBL-producing, with multiple resistances) from 03/30/22 to 04/06/22. He was then discharged to complete his iv Meropenem antibiotics and to continue doing rehab, here at [facility] in Swing Bed status on 04/06/22. He has a Left AC joint separation of 1.8 cm, and still needs surgery at [facility] for that. He has been progressing with PT and OT rehab, however, yesterday 04/28/22, he c/o urinary frequency, was confused and had shaking chills. A fever of 37.5 C was documented. Orders for CBC, urinalysis, urine culture and blood culture were placed. He was started on empiric oral Nitrofurantoin, since his recent ESBL E coli was sensitive to that. Today, 04/29/2022, the blood culture result came back positive for gram-negative bacilli. Thus he was discharged from Swing bed today and is being admitted to Inpatient status. - HOSPITAL COURSE Hospital Course: (1) E coli bacteremia His urine, and his blood cultures this time, grew the same E coli that he had 4 weeks previously. ID was contacted and said that we had treated the last ESBL-E coli infection long enough. This pointed to there being a nidus of infection. Per ID, he now required 14 days of iv Meropenam, which he completed. Then he will need suppressive therapy using oral Macrodantin, until the stones can be addressed (see #4). (2) ESBL-producing E coli infection Urine cx grew the same E coli that he had 4 weeks previously, which had been treated then with iv Meropenam for 21 days. It had the same sensitivity profile. He now required 14 days of iv Meropenam, which he completed. (3) Bilateral pyelonephritis/Complex UTI His CT abd/pelvis was completed and showed no prostate abnormality, but he had bilateral renal stranding c/w bilateral hydronephrosis, with this newest infection. (4) Kidney stones, bilateral He reported having kidney stones in the past, and actually passed a kidney stone while in Swing bed status, and saved into a specimen cup. We were straining his urine. PTH returned normal (<2.0). ID said that we had treated the last ESBL-E coli infection long enough. This pointed to there being a nidus of infection. His CT abd/pelvis was completed and showed no prostate abnormality, but he had bilateral renal stranding c/w bilateral hydronephrosis with this newest infection. And again the bilateral non-obstructing stones were seen. Urology at [facility] reviewed that CT (this was recommended by ID at [facility]), and felt that, at this time, he did not need a stent. Urology wanted the patient to be referred for evaluation at the stone clinic after discharge. We continued him on Flomax here and after NV[facility]. The Hospitalist spoke to his primary care provider, SHAKA Cope, explained the situation to her. She will make the referral to [facility] Urology stone clinic for follow-up. ID felt it important to remove this nidus of infection. And, until he sees them, he must stay on Macrodantin 100 mg daily, as suppressive therapy, which was prescribed. (5) Hx of multiple trauma This pt fell 40 feet off a ladder on 03/16/22 and sustained trauma to multiple o rgans, was air transferred from our ER to [facility] where he was hospitalized for 8 days. He had multiple rib fractures, apical pneumothorax, pulmonary laceration, L kidney bleed, retroperitoneal hematoma, splenic laceration, acute blood loss anemia, R femur fracture, L scapula fracture, L iliac fracture, L2 vertebral fracture, C7, T1-T9 and L2-L4 transverse process fractures, blunt cardiac trauma and pulmonary embolism, started on Eliquis. He needed chest tubes, had 2 surgeries to the R femur. He then started rehab at [facility], then continued as an Inpt then in Swing bed, then now again as an Inpt. We continued oxycodone for managing pain. He may not drive a vehicle, until cleared by Ortho or his PCP. He was referred to [facility] for further PT and OT. (6) Separation of left acromioclavicular joint He still needs surgery at [facility] for the L shoulder separation. We had hoped to have him be able to go to the different May 01 and May 02 clinic appointments while he was in Swing bed status, but he could not get to those appointments as an Inpt, which started 03/30. We ordered continued pain management and he continued to progress well with PT and OT, such that he could be discharged to home, when those antibiotics were finished. His various appointments were rescheduled. (7) PTSD (post-traumatic stress disorder) This was diagnosed with a telepsych consult while he was in his recent Swing bed status. We continued his meds. (8) Poor memory He needed to be reminded how and with what precautions and where, to ambulate. He was not lethargic or over-sedated with pain meds. He may have had a TBI with that fall. We do not know his baseline mental status before his fall at home this past Feb, however. (9) DM type 2 (diabetes mellitus, type 2) Glucose was initially elevated with the recurrent infection. We continued a carb controlled diet, Hypoglycemia protocol, insulin treatment & fingerstick glucose checks. As his glu improved, he only required mealtime Reg Insulin doses of 3U. Therefore, at discharge, at his request, he was not sent home on Insulin, but was restarted on his Metformin 1000 mg BID. (10) Hx pulmonary embolism We continued his usual Eliquis dose, which is to continue through May 2022. - ALLERGIES Allergies/Adverse Reactions: Allergies Allergy/AdvReac Type Severity Reaction Status Date / Time medazepam AdvReac Hallucinati Verified 03/30/22 11:13 ons - MEDICATIONS Home Medications: Ambulatory Orders Medication Instructions Recorded Confirmed L. Acidophilus/Pectin, [place] 1 each PO DAILY #30 tablet 05/11/22 [Acidophilus-Pectin Captab] Nitrofurantoin Macrocrystal 100 mg PO DAILY #30 cap 05/11/22 [Macrodantin] Oxycodone HCl 10 mg PO Q6H PRN #20 tab 05/11/22 oxyCODONE [Roxicodone] 5 mg PO Q6H PRN #20 tab 05/11/22 Acetaminophen [Tylenol] 650 mg PO Q4H PRN #60 tab 05/12/22 Apixaban [Eliquis] 5 mg PO BID #60 tab 05/12/22 Blood-Glucose Meter [Glucometer] 1 each MC DAILY #1 each 05/12/22 Calcium Carbonate [Tums (Calcium 500 mg PO BID #30 tab 05/12/22 Carbonate 500mg)] Cholecalciferol [Vitamin D3] 25 mcg PO DAILY #30 tab 05/12/22 Lancets/Blood Glucose Strips [Pogo 1 each MC DAILY #30 ea 05/12/22 Automatic Test Cartridge] Mag Hydrox/Al Hydrox/Simeth 30 ml PO Q4H PRN #40 ea 05/12/22 [Mylanta Plus] Metformin HCl [Metformin ER 1,000 mg PO BID #120 tab 05/12/22 Gastric] Multivitamin W/Minerals [Theragran 1 each PO DAILY #30 tab 05/12/22 M] Propranolol ER [Inderal LA] 60 mg PO DAILY #30 cap 05/12/22 Tamsulosin [Flomax] 0.4 mg PO DAILY #30 cap 05/12/22 polyethylene glycoL 3350 [Miralax] 17 gm PO DAILY #30 packet 05/12/22 Oxycodone HCl 5 - 10 mg PO Q6H PRN #25 tablet 05/13/22 - PHYSICAL EXAM AT DISCHARGE General Appearance: positive: No acute distress, Alert Eyes Bilateral: positive: Normal inspection, EOMI ENT: positive: ENT inspection nml, No signs of dehydration Neck: positive: Nml inspection, No JVD Respiratory: positive: No respiratory distress, Breath sounds nml Cardiovascular: positive: Regular rate & rhythm, No murmur Abdomen: positive: Non-tender, Nml bowel sounds, No distention Skin: positive: Warm, Dry Extremities: positive: No pedal edema, Other (L shoulder and R hip tender) Neurologic/Psychiatric: positive: Oriented x3, Motor nml - LABS Result Diagrams: 05/08/22 05:42 05/08/22 05:42 - DIAGNOSTIC IMAGING Diagnostic Imaging Results: Final report reviewed - FOLLOW UP Follow Up: Spine clinic at [facility] rescheduled his follow up appointment for 05/19/22 at 1300. Ortho appointment will be 05/23/22 at 1300. His PCP, Floridalma Marrero NP, will make the referral to [facility] Urology stone clinic. - TIME SPENT Time Spent in Discharge (Minutes): 60
== END 2022-05-12 14:30 | disposition home health service (06) | DRG 690 ==
LOC: MS2 09:33
PROVIDERS: ADMIT Internal Medicine; ATTEND Internal Medicine
DX: N13.6 Pyonephrosis (principal); R78.81 Bacteremia; Z16.24 Resistance to multiple antibiotics; B96.20 Unspecified Escherichia coli [E. coli] as the cause of diseases classified elsewhere; S43.102A Unspecified dislocation of left acromioclavicular joint, initial encounter; F43.10 Post-traumatic stress disorder, unspecified; R41.3 Other amnesia; E11.65 Type 2 diabetes mellitus with hyperglycemia; G47.33 Obstructive sleep apnea (adult) (pediatric); F41.9 Anxiety disorder, unspecified; M54.9 Dorsalgia, unspecified; M25.552 Pain in left hip; M25.551 Pain in right hip; Z79.01 Long term (current) use of anticoagulants; Z79.84 Long term (current) use of oral hypoglycemic drugs; Z79.4 Long term (current) use of insulin; Z79.899 Other long term (current) drug therapy; Z86.711 Personal history of pulmonary embolism; Z87.828 Personal history of other (healed) physical injury and trauma; Z96.649 Presence of unspecified artificial hip joint
CPT/HCPCS: 36415; 74176; 80048; 80053; 82397; 83605; 83735; 85025; 87040; 87150; 87181; 97110; 97112; 97116; 97162; 97166; 97530; 97535; A9270; J2185

== ENCOUNTER 2022-05-26 10:09 | Outpatient (CLI) | payer MEDICARE, MEDICAID ==
[2022-05-26 14:31] LABS: BILIRUBIN,URINE NEGATIVE (NEGATIVE); GLUCOSE, URINE (UA) NEGATIVE (NEGATIVE); KETONES,URINE (UA) NEGATIVE (NEGATIVE); LEUKOCYTE ESTERASE, URINE NEGATIVE (NEGATIVE); NITRITE,URINE NEGATIVE (NEGATIVE); OCCULT BLOOD,URINE LARGE (NEGATIVE); PROTEIN,URINE NEGATIVE (NEGATIVE); UROBILINOGEN,URINE 0.2 (NORMAL) E.U./dL (NORMAL)
[2022-05-26 14:40] LABS: BACTERIA,URINE Rare /HPF (None Seen); CLARITY,URINE SL. CLOUDY (CLEAR); RBC,URINE TNTC /HPF (0-5); SQUAMOUS EPITHELIAL CELL,UR RARE Squamous (<= Few)
[2022-05-26 14:59] LABS: CREATININE,URINE 78.1 mg/dL; PROTEIN/CREATININE RATIO,URINE 0.4 (<=0.2)
== END 2022-05-26 10:10 | disposition home or self-care (01) ==
LOC: LAB.S 10:09
PROVIDERS: ATTEND Registered Nurse
DX: S37.062D Major laceration of left kidney, subsequent encounter (principal); Z22.1 Carrier of other intestinal infectious diseases
CPT/HCPCS: 81001; 82570; 84156; 87086

== ENCOUNTER 2022-06-16 08:39 | Outpatient (CLI) | payer MEDICARE, MEDICAID ==
[2022-06-16 15:00] LABS: BILIRUBIN,URINE NEGATIVE (NEGATIVE); GLUCOSE, URINE (UA) NEGATIVE (NEGATIVE); KETONES,URINE (UA) NEGATIVE (NEGATIVE); LEUKOCYTE ESTERASE, URINE LARGE (NEGATIVE); NITRITE,URINE POSITIVE (NEGATIVE); OCCULT BLOOD,URINE LARGE (NEGATIVE); PH,URINE 6.5 PH (5.0-7.5); PROTEIN,URINE 30 mg/dL (NEGATIVE); UROBILINOGEN,URINE 0.2 (NORMAL) E.U./dL (NORMAL)
[2022-06-16 15:08] LABS: CLARITY,URINE CLOUDY (CLEAR)
[2022-06-16 15:23] LABS: BACTERIA,URINE Many /HPF (None Seen); SQUAMOUS EPITHELIAL CELL,UR RARE Squamous (<= Few); WBC,URINE >25 /HPF (0-3)
[2022-06-16 15:27] LABS: ALBUMIN/GLOBULIN RATIO 1.3 (1.0-2.2); BILIRUBIN,TOTAL 0.8 mg/dL (0.2-1.0); CALCIUM 9.4 mg/dL (8.5-10.3); POTASSIUM 4.8 mmol/L (3.5-5.0); TOTAL PROTEIN 7.1 g/dL (6.7-8.2)
== END 2022-06-16 08:40 | disposition home or self-care (01) ==
LOC: LAB.S 08:39
PROVIDERS: ATTEND Registered Nurse
DX: R73.9 Hyperglycemia, unspecified (principal); S37.02 Major contusion of kidney
CPT/HCPCS: 36415; 80053; 81001

== ENCOUNTER 2022-06-22 08:00 | Outpatient (CLI) | payer MEDICARE, MEDICAID ==
[2022-06-22 17:45] LABS: BASOPHILS % (AUTO) 0.3 %; EOSINOPHILS % (AUTO) 0.2 %; HCT - HEMATOCRIT 37.5 % (42.0-52.0); HGB - HEMOGLOBIN 11.9 g/dL (14.0-18.0); LYMPHOCYTES # (AUTO) 0.5 10^3/uL (1.5-3.5); LYMPHOCYTES % (AUTO) 4.6 %; MEAN CORPUSCULAR HEMOGLOBIN 27.7 pg (27.0-31.0); MEAN CORPUSCULAR HGB CONC 31.7 g/dL (32.0-36.0); MEAN CORPUSCULAR VOLUME 87.2 fL (80.0-94.0); MEAN PLATELET VOLUME 10.5 fL (7.4-11.4); MONOCYTES % (AUTO) 8.9 %; NEUTROPHILS # (AUTO) 9.9 10^3/uL (1.5-6.6); NEUTROPHILS % (AUTO) 85.5 %; PLT - PLATELET COUNT 250 10^3/uL (130-450); RED CELL DISTRIBUTION WIDTH 15.8 % (12.0-15.0); WHITE BLOOD COUNT 11.6 x10^3/uL (4.8-10.8)
[2022-06-22 18:06] LABS: ALBUMIN 2.8 g/dL (3.2-5.5); ALBUMIN/GLOBULIN RATIO 0.8 (1.0-2.2); BILIRUBIN,TOTAL 0.3 mg/dL (0.2-1.0); CALCIUM 8.7 mg/dL (8.5-10.3); CREATININE 1.4 mg/dL (0.6-1.2); POTASSIUM 4.6 mmol/L (3.5-5.0); TOTAL PROTEIN 6.5 g/dL (6.7-8.2)
[2022-06-22 18:19] LABS: THYROID STIMULATING HORMONE 0.97 uIU/mL (0.34-5.60)
== END 2022-06-22 23:59 | disposition home or self-care (01) ==
LOC: LAB.N 08:00
PROVIDERS: ATTEND Family Medicine
DX: R50.9 Fever, unspecified (principal); R00.0 Tachycardia, unspecified; R30.0 Dysuria; Z22.1 Carrier of other intestinal infectious diseases
CPT/HCPCS: 36415; 80053; 84443; 85025; 87086; 87181

== ENCOUNTER 2022-07-14 12:45 | Emergency (ER) | payer MEDICARE, MEDICAID ==
--- NOTE | 2022-07-14 13:13 | ED Physician Documentation ---
History of Present Illness - Stated complaint Stated Complaint: SOA - Chief complaint Chief Complaint: Resp - History obtained from History obtained from: Patient - History of Present Illness Pain level max: 0 Pain level now: 0 - Additonal information Additional information: 66-year-old male presents to the emergency department stating that he has had shortness of breath for the past 3 to 4 days. Not having any chest pain. He feels that has been worsening over the past several days. He states that he feels short of breath walking even short distances now. Has a history of a pulmonary embolus in February 2022. He states that he stopped taking Eliquis in May because "my doctor said it was expensive". He is not currently a nticoagulated. Patient has not had any fevers that he is aware of, but has had chills. He thinks this is because been cold in his house. Review of Systems Ears: denies: Ear pain Nose: denies: Rhinorrhea / runny nose, Congestion GI: denies: Vomiting, Diarrhea Skin: denies: Rash Musculoskeletal: denies: Neck pain, Back pain Neurologic: denies: Headache PD PAST MEDICAL HISTORY - Past Medical History Past Medical History: Yes Cardiovascular: Other Respiratory: Sleep apnea, Other (Chest tubes for hemo-pneumothorax at [facility]) Neuro: Other Endocrine/Autoimmune: Type 2 diabetes GI: Other (splenic and kidney trauma and retroperitoneal hematoma from that trauma) : Other (Kidney laceration) HEENT: Other (Recent L eye surgery) Psych: Other Musculoskeletal: Other - Past Surgical History Ortho: Hip replacement - Present Medications Home Medications: Ambulatory Orders Medication Instructions Recorded Confirmed L. Acidophilus/Pectin, [place] 1 each PO DAILY #30 tablet 05/11/22 [Acidophilus-Pectin [place]] Nitrofurantoin Macrocrystal 100 mg PO DAILY #30 cap 05/11/22 [Macrodantin] Oxycodone HCl 10 mg PO Q6H PRN #20 tab 05/11/22 oxyCODONE [Roxicodone] 5 mg PO Q6H PRN #20 tab 05/11/22 Acetaminophen [Tylenol] 650 mg PO Q4H PRN #60 tab 05/12/22 Apixaban [Eliquis] 5 mg PO BID #60 tab 05/12/22 Blood-Glucose Meter [Glucometer] 1 each MC DAILY #1 each 05/12/22 Calcium Carbonate [Tums (Calcium 500 mg PO BID #30 tab 05/12/22 Carbonate 500mg)] Cholecalciferol [Vitamin D3] 25 mcg PO DAILY #30 tab 05/12/22 Lancets/Blood Glucose Strips [Pogo 1 each MC DAILY #30 ea 05/12/22 Automatic Test Cartridge] Mag Hydrox/Al Hydrox/Simeth 30 ml PO Q4H PRN #40 ea 05/12/22 [Mylanta Plus] Metformin HCl [Metformin ER 1,000 mg PO BID #120 tab 05/12/22 Gastric] Multivitamin W/Minerals [Theragran 1 each PO DAILY #30 tab 05/12/22 M] Propranolol ER [Inderal LA] 60 mg PO DAILY #30 cap 05/12/22 Tamsulosin [Flomax] 0.4 mg PO DAILY #30 cap 05/12/22 polyethylene glycoL 3350 [Miralax] 17 gm PO DAILY #30 packet 05/12/22 Oxycodone HCl 5 - 10 mg PO Q6H PRN #25 tablet 05/13/22 - Allergies Allergies/Adverse Reactions: Allergies Allergy/AdvReac Type Severity Reaction Status Date / Time medazepam AdvReac Hallucinati Verified 07/14/22 12:49 ons - Social History Smoking Status: Never smoker - POLST POLST Status: Full Code PD ED PE NORMAL - Vitals Vital signs reviewed: Yes - General General: Alert and oriented X 3, No acute distress - HEENT HEENT: PERRL, Moist mucous membranes - Neck Neck: Supple, no meningeal sign - Cardiac Cardiac: RRR, Strong equal pulses - Respiratory Respiratory: No respiratory distress, Clear bilaterally - Abdomen Abdomen: Soft, Non tender, Non distended - Back Back: No CVA TTP, No spinal TTP - Derm Derm: Warm and dry - Extremities Extremities: No edema - Neuro Neuro: Alert and oriented X 3 - Psych Psych: Normal mood, Normal affect Results - Vitals Vitals: Vital Signs - 24 hr 07/14/22 07/14/22 07/14/22 12:49 14:52 16:00 Temperature 36.5 C 37.0 C Heart Rate 110 H 89 89 Respiratory 24 18 18 Rate Blood Pressure 114/65 142/90 H 145/98 H O2 Saturation 98 97 96 Oxygen O2 Source Room air - EKG (time done) 1333 Rate: Rate (enter#) (98) Rhythm: NSR [place]: Normal Intervals: Normal [place] QRS: Normal Ischemia: Normal ST segments - Labs Labs: Laboratory Tests 07/14/22 07/14/22 07/14/22 13:23 13:23 13:23 WBC 15.0 H RBC 4.48 L Hgb 12.3 L Hct 37.7 L MCV 84.2 MCH 27.5 MCHC 32.6 RDW 16.0 H Plt Count 229 MPV 10.0 Neut # (Auto) 13.4 H Lymph # (Auto) 0.5 L Terry # (Auto) 1.1 H Eos # (Auto) 0.0 Baso # (Auto) 0.1 Absolute Nucleated RBC 0.00 Nucleated RBC % 0.0 Sodium 131 L Potassium 3.6 Chloride 98 L Carbon Dioxide 22 Anion Gap 11.0 BUN 47 H Creatinine 1.5 H Estimated GFR (MDRD) 47 L Glucose 205 H Lactic Acid Calcium 8.6 Total Bilirubin 1.3 H AST 13 ALT 17 Alkaline Phosphatase 199 H Troponin I High Sens 8.8 B-Natriuretic Peptide Total Protein 6.8 Albumin 2.7 L Globulin 4.1 Albumin/Globulin Ratio 0.7 L Lipase 21 L Urine Color Urine Clarity Urine pH Ur Specific [place] Urine Protein Urine Glucose (UA) Urine Ketones Urine Occult Blood Urine Nitrite Urine Bilirubin Urine Urobilinogen Ur Leukocyte Esterase Urine RBC Urine WBC Ur Squamous Epith Cells Urine Bacteria Ur Microscopic Review Urine Culture Comments 07/14/22 07/14/22 07/14/22 13:23 15:46 17:17 WBC RBC Hgb Hct MCV MCH MCHC RDW Plt Count MPV Neut # (Auto) Lymph # (Auto) Terry # (Auto) Eos # (Auto) Baso # (Auto) Absolute Nucleated RBC Nucleated RBC % Sodium Potassium Chloride Carbon Dioxide Anion Gap BUN Creatinine Estimated GFR (MDRD) Glucose Lactic Acid 2.5 H Calcium Total Bilirubin AST ALT Alkaline Phosphatase Troponin I High Sens B-Natriuretic Peptide 34 Total Protein Albumin Globulin Albumin/Globulin Ratio Lipase Urine Color YELLOW Urine Clarity CLOUDY Urine pH 6.0 Ur Specific [place] 1.015 Urine Protein 30 H Urine Glucose (UA) NEGATIVE Urine Ketones NEGATIVE Urine Occult Blood MODERATE H Urine Nitrite NEGATIVE Urine Bilirubin NEGATIVE Urine Urobilinogen 0.2 (NORMAL) Ur Leukocyte Esterase MODERATE H Urine RBC 6-10 H Urine WBC >25 H Ur Squamous Epith Cells NONE SEEN Urine Bacteria Many H Ur Microscopic Review INDICATED Urine Culture Comments INDICATED - Rads (name of study) CT abdomen pelvis Radiology: Final report received, See rad report CT angiogram chest Radiology: Final report received, See rad report PD Medical Decision Making - ED course Complexity details: reviewed results, re-evaluated patient, considered differential, d/w patient ED course: 66-year-old male with shortness of breath today. He has had chills, but no fevers that he is aware of at home. Has not taken his temperature. He states he did wake up in a night sweat last night. His CT angiogram of the chest does not show any acute abnormalities in the chest, no pulmonary embolism. However his left kidney was enlarged. Therefore the CT of the abdomen pelvis was performed. Patient was having left flank and hip pain as well. There is a 14 x 7 x 12 mm ureteral stone on the left side causing hydronephrosis and hydroureter. Patient had a recent ESBL E. coli UTI. He is seeing urology at the [facility]. He has had to have ureteral stents in the past and has had kidney stones in the past.Based on his prior cultures. Patient was given a dose of IV meropenem. A call was placed at the [facility] at 1700 to speak with urology. Pain is well controlled with Toradol and IV lidocaine. There are no beds available at the [facility]. We will continue to look for a bed at surrounding hospitals. [facility]. ABDOMEN: Lung bases: Lung bases are clear. Heart size is normal. Solid organs: Liver and spleen are normal in size. Gallbladder is unremarkable w ithout calcified gallstones. Pancreas is normal in contours. No adrenal nodules. There is moderate left hydronephrosis and hydroureter. There is an obstructing stone at the level of L4-L5 which measures approximately 14 x 7 x 12 mm. There is no right hydronephrosis. The right ureter is of normal caliber. Peritoneum and bowel: Unenhanced bowel loops demonstrate normal wall thickness and caliber. Mild diverticulosis without evidence of diverticulitis. No free fluid or air. Nodes and vessels: No retroperitoneal or mesenteric adenopathy by size criteria. Aorta and inferior vena cava are normal in caliber. Miscellaneous: No ventral hernias. PELVIS: Genitourinary: Bladder wall thickness is normal. Miscellaneous: No inguinal hernias or adenopathy. Bones: Orthopedic hardware, right hip. Again noted is a markedly comminuted displaced left iliac wing fracture. There is associated mildly peripherally enhancing fluid posteriorly which is diminished compared to the study from April, measuring 4.8 x 3.8 cm, likely consistent with a chronic hematoma. No suspicious bony lesions. No vertebral body compression fractures. IMPRESSION: 1. A large stone obstructs the left ureter at L4-L5, resulting in moderate left hydronephrosis. 2. Markedly comminuted left iliac wing fracture again noted with what appears to be an associated chronic hematoma. FINDINGS: Image quality: Excellent. Pulmonary arteries: Pulmonary arteries are normal in size, and demonstrate no intraluminal filling defects to suggest central pulmonary embolism. Lungs and pleura: Right major fissure pulmonary nodule measuring 0.4 cm. No pleural effusions or pneumothorax. Central and peripheral airways are patent. Mediastinum: Heart size is normal, without pericardial effusion. No mediastinal or hilar adenopathy. Thoracic aorta is normal in caliber and enhancement. Esophagus is normal in caliber, without hiatal hernia. Bones and chest wall: No suspicious bony lesions. Prior left-sided rib fracture. No axillary or supraclavicular adenopathy. The thyroid is normal in size and there are no incidental findings. Abdomen: Left kidney is enlarged compared to the right. The left kidney appears larger than the prior CT. The left renal pelvis is dilated. The left kidney is only partially visualized. No adrenal nodule. No calcified gallstones. IMPRESSION: 1. No pulmonary embolism. 2. No acute airspace opacity. 3. Left kidney is enlarged. Left renal collecting system appears dilated. This can be further evaluated with ultrasound or CT. Departure - Departure Clinical Impression: Ureteral stone UTI (urinary tract infection) Qualifiers: Urinary tract infection type: acute cystitis Hematuria presence: without hematuria Qualified Code(s): N30.00 - Acute cystitis without hematuria Condition: Stable
[2022-07-14 13:31] LABS: BASOPHILS # (AUTO) 0.1 10^3/uL (0.0-0.1); BASOPHILS % (AUTO) 0.3 %; EOSINOPHILS % (AUTO) 0.1 %; HCT - HEMATOCRIT 37.7 % (42.0-52.0); HGB - HEMOGLOBIN 12.3 g/dL (14.0-18.0); LYMPHOCYTES # (AUTO) 0.5 10^3/uL (1.5-3.5); LYMPHOCYTES % (AUTO) 3.1 %; MEAN CORPUSCULAR HEMOGLOBIN 27.5 pg (27.0-31.0); MEAN CORPUSCULAR HGB CONC 32.6 g/dL (32.0-36.0); MEAN CORPUSCULAR VOLUME 84.2 fL (80.0-94.0); MONOCYTES # (AUTO) 1.1 10^3/uL (0.0-1.0); NEUTROPHILS # (AUTO) 13.4 10^3/uL (1.5-6.6); NEUTROPHILS % (AUTO) 89.2 %; PLT - PLATELET COUNT 229 10^3/uL (130-450); RED BLOOD COUNT 4.48 10^6/uL (4.70-6.10)
[2022-07-14] MEDS ORDERED: ONDANSETRON 4 MG/2 ML VIAL IVP STA (13:31)
[2022-07-14] MEDS ORDERED: KETOROLAC 30 MG/ML VIAL IVP STA (13:31)
[2022-07-14] MEDS ORDERED: iohexoL-300 100 ML VIAL ONE (13:36)
[2022-07-14 13:51] LABS: ALBUMIN 2.7 g/dL (3.2-5.5); ALBUMIN/GLOBULIN RATIO 0.7 (1.0-2.2); BILIRUBIN,TOTAL 1.3 mg/dL (0.2-1.0); CALCIUM 8.6 mg/dL (8.5-10.3); CREATININE 1.5 mg/dL (0.6-1.2); POTASSIUM 3.6 mmol/L (3.5-5.0); TOTAL PROTEIN 6.8 g/dL (6.7-8.2)
[2022-07-14] MEDS ORDERED: SODIUM CHLORIDE 0.9% 1,000 ML IV STA (13:55)
[2022-07-14] MEDS ORDERED: iohexoL-300 100 ML VIAL IVP ONE (14:18)
--- OUTSIDE RECORDS SUMMARY | 2022-07-14 14:26 | EXTERNAL MEDICAL SUMMARY RPT | Continuity of Care Document ---
:1955 Author Organization [place] Address [address] [place] [address] Phone Care Team Providers Name Role Phone Unavailable Unavailable Unavailable Rosario Henriquez Unavailable Unavailable Allergies No information. Encounters No information. Functional Status No information. Immunizations No information. Medications date description facility 2022-04-15 00:00 cholecalciferol (vitamin d3) Walk-In [facility] 2022-04-17 00:00 cholecalciferol (vitamin d3) Walk-In [facility] 2022-04-18 00:00 cholecalciferol (vitamin d3) Walk-In [facility] 2022-04-19 00:00 cholecalciferol (vitamin d3) Walk-In [facility] 2022-04-20 00:00 cholecalciferol (vitamin d3) [facility]-In [facility] 2022-04-21 00:00 cholecalciferol (vitamin d3) [facility]-In [facility] 2022-04-22 00:00 cholecalciferol (vitamin d3) [facility]-In [facility] 2022-04-23 00:00 cholecalciferol (vitamin d3) [facility]-In [facility] 2022-04-24 00:00 cholecalciferol (vitamin d3) [facility]-In [facility] 2022-04-25 00:00 cholecalciferol (vitamin d3) [facility]-In [facility] 2022-04-26 00:00 cholecalciferol (vitamin d3) [facility]-In [facility] 2022-04-27 00:00 cholecalciferol (vitamin d3) [facility]-In [facility] 2022-04-28 00:00 cholecalciferol (vitamin d3) [facility]-In [facility] 2022-04-29 00:00 cholecalciferol (vitamin d3) [facility]-In [facility] 2022-04-30 00:00 cholecalciferol (vitamin d3) [facility]-In [facility] 2022-05-01 00:00 cholecalciferol (vitamin d3) Walk-In [facility] 2022-05-02 00:00 cholecalciferol (vitamin d3) Walk-In [facility] 2022-05-03 00:00 cholecalciferol (vitamin d3) Walk-In [facility] 2022-05-04 00:00 cholecalciferol (vitamin d3) Walk-In [facility] 2022-05-05 00:00 cholecalciferol (vitamin d3) [facility]-In [facility] 2022-05-07 00:00 cholecalciferol (vitamin d3) [facility]-In [facility] 2022-05-08 00:00 cholecalciferol (vitamin d3) [facility]-In [facility] 2022-05-09 00:00 cholecalciferol (vitamin d3) [facility]-In [facility] 2022-05-10 00:00 cholecalciferol (vitamin d3) [facility]-In [facility] 2022-05-11 00:00 cholecalciferol (vitamin d3) Walk-In [facility] 2022-05-12 00:00 cholecalciferol (vitamin d3) Walk-In [facility] 2022-05-18 00:00 cholecalciferol (vitamin d3) Walk-In [facility] 2022-05-20 00:00 cholecalciferol (vitamin d3) [facility]-In [facility] 2022-04-15 00:00 lysine [facility] [place] 2022-04-17 00:00 lysine [facility] [place] 2022-04-18 00:00 lysine [facility] [place] 2022-04-19 00:00 lysine [facility] [place] 2022-04-20 00:00 lysine [facility] [place] 2022-04-21 00:00 lysine [facility] [place] 2022-04-22 00:00 lysine [facility] [place] 2022-04-23 00:00 lysine [facility] [place] 2022-04-24 00:00 lysine [facility] [place] 2022-04-25 00:00 lysine [facility] [place] 2022-04-26 00:00 lysine [facility] [place] 2022-04-27 00:00 lysine [facility] [place] 2022-04-28 00:00 lysine [facility] [place] 2022-04-29 00:00 lysine [facility] [place] 2022-04-30 00:00 lysine [facility] [place] 2022-05-01 00:00 lysine [facility] [place] 2022-05-02 00:00 lysine [facility] [place] 2022-05-03 00:00 lysine [facility] [place] 2022-05-04 00:00 lysine [facility] [place] 2022-05-05 00:00 lysine [facility] [place] 2022-05-07 00:00 lysine [facility] [place] 2022-05-08 00:00 lysine [facility] [place] 2022-05-09 00:00 lysine [facility] [place] 2022-05-10 00:00 lysine [facility] [place] 2022-05-11 00:00 lysine [facility] [place] 2022-05-12 00:00 lysine [facility] [place] 2022-05-18 00:00 lysine [facility] [place] 2022-05-20 00:00 lysine [facility] [place] 2022-04-15 00:00 lysine [facility] [place] 2022-04-17 00:00 lysine [facility] [place] 2022-04-18 00:00 lysine [facility] [place] 2022-04-19 00:00 lysine [facility] [place] 2022-04-20 00:00 lysine [facility] [place] 2022-04-21 00:00 lysine [facility] [place] 2022-04-22 00:00 lysine [facility] [place] 2022-04-23 00:00 lysine [facility] [place] 2022-04-24 00:00 lysine [facility] [place] 2022-04-25 00:00 lysine [facility] [place] 2022-04-26 00:00 lysine [facility] [place] 2022-04-27 00:00 lysine [facility] [place] 2022-04-28 00:00 lysine [facility] [place] 2022-04-29 00:00 lysine [facility] [place] 2022-04-30 00:00 lysine [facility] [place] 2022-05-01 00:00 lysine [facility] [place] 2022-05-02 00:00 lysine [facility] [place] 2022-05-03 00:00 lysine [facility] [place] 2022-05-04 00:00 lysine [facility] [place] 2022-05-05 00:00 lysine [facility] [place] 2022-05-07 00:00 lysine [facility] [place] 2022-05-08 00:00 lysine [facility] [place] 2022-05-09 00:00 lysine [facility] [place] 2022-05-10 00:00 lysine [facility] [place] 2022-05-11 00:00 lysine [facility] [place] 2022-05-12 00:00 lysine [facility] [place] 2022-05-18 00:00 lysine [facility] [place] 2022-05-20 00:00 lysine [facility] [place] 2022-04-15 00:00 cholecalciferol (vitamin d3) Walk-In [facility] [place] 2022-04-17 00:00 cholecalciferol (vitamin d3) Walk-In [facility] [place] 2022-04-18 00:00 cholecalciferol (vitamin d3) Walk[facility]In [facility] [place] 2022-04-19 00:00 cholecalciferol (vitamin d3) Walk-In [facility] [place] 2022-04-20 00:00 cholecalciferol (vitamin d3) Walk-In [facility] [place] 2022-04-21 00:00 cholecalciferol (vitamin d3) [facility]-In [facility] 2022-04-22 00:00 cholecalciferol (vitamin d3) [facility]-In [facility] 2022-04-23 00:00 cholecalciferol (vitamin d3) [facility]-In [facility] 2022-04-24 00:00 cholecalciferol (vitamin d3) [facility]-In [facility] 2022-04-25 00:00 cholecalciferol (vitamin d3) Walk-In [facility] 2022-04-26 00:00 cholecalciferol (vitamin d3) Walk-In [facility] 2022-04-27 00:00 cholecalciferol (vitamin d3) Walk-In [facility] 2022-04-28 00:00 cholecalciferol (vitamin d3) Walk-In [facility] 2022-04-29 00:00 cholecalciferol (vitamin d3) Walk-In [facility] 2022-04-30 00:00 cholecalciferol (vitamin d3) Walk-In [facility] 2022-05-01 00:00 cholecalciferol (vitamin d3) Walk-In [facility] 2022-05-02 00:00 cholecalciferol (vitamin d3) Walk-In [facility] 2022-05-03 00:00 cholecalciferol (vitamin d3) Walk-In [facility] 2022-05-04 00:00 cholecalciferol (vitamin d3) Walk-In [facility] 2022-05-05 00:00 cholecalciferol (vitamin d3) Walk-In [facility] 2022-05-07 00:00 cholecalciferol (vitamin d3) Walk-In [facility] 2022-05-08 00:00 cholecalciferol (vitamin d3) Walk-In [facility] 2022-05-09 00:00 cholecalciferol (vitamin d3) Walk-In [facility] 2022-05-10 00:00 cholecalciferol (vitamin d3) Walk-In [facility] 2022-05-11 00:00 cholecalciferol (vitamin d3) Walk-In [facility] 2022-05-12 00:00 cholecalciferol (vitamin d3) Walk-In [facility] 2022-05-18 00:00 cholecalciferol (vitamin d3) Walk-In [facility] 2022-05-20 00:00 cholecalciferol (vitamin d3) Walk-In [facility] 2022-04-15 00:00 cholecalciferol (vitamin d3) Walk-In [facility] 2022-04-17 00:00 cholecalciferol (vitamin d3) Walk-In [facility] 2022-04-18 00:00 cholecalciferol (vitamin d3) Walk-In [facility] 2022-04-19 00:00 cholecalciferol (vitamin d3) Walk-In [facility] 2022-04-20 00:00 cholecalciferol (vitamin d3) Walk-In [facility] 2022-04-21 00:00 cholecalciferol (vitamin d3) Walk-In [facility] 2022-04-22 00:00 cholecalciferol (vitamin d3) Walk-In [facility] 2022-04-23 00:00 cholecalciferol (vitamin d3) Walk-In [facility] 2022-04-24 00:00 cholecalciferol (vitamin d3) Walk-In [facility] 2022-04-25 00:00 cholecalciferol (vitamin d3) Walk-In [facility] 2022-04-26 00:00 cholecalciferol (vitamin d3) Walk-In [facility] 2022-04-27 00:00 cholecalciferol (vitamin d3) Walk-In [facility] 2022-04-28 00:00 cholecalciferol (vitamin d3) Walk-In [facility] 2022-04-29 00:00 cholecalciferol (vitamin d3) Walk-In [facility] 2022-04-30 00:00 cholecalciferol (vitamin d3) Walk-In [facility] 2022-05-01 00:00 cholecalciferol (vitamin d3) Walk-In [facility] 2022-05-02 00:00 cholecalciferol (vitamin d3) Walk-In [facility] 2022-05-03 00:00 cholecalciferol (vitamin d3) Walk-In [facility] 2022-05-04 00:00 cholecalciferol (vitamin d3) Walk-In [facility] 2022-05-05 00:00 cholecalciferol (vitamin d3) Walk-In [facility] 2022-05-07 00:00 cholecalciferol (vitamin d3) Walk-In [facility] 2022-05-08 00:00 cholecalciferol (vitamin d3) Walk-In [facility] 2022-05-09 00:00 cholecalciferol (vitamin d3) Walk-In [facility] 2022-05-10 00:00 cholecalciferol (vitamin d3) Walk-In [facility] 2022-05-11 00:00 cholecalciferol (vitamin d3) Walk-In [facility] 2022-05-12 00:00 cholecalciferol (vitamin d3) Walk-In [facility] 2022-05-18 00:00 cholecalciferol (vitamin d3) Walk-In [facility] 2022-05-20 00:00 cholecalciferol (vitamin d3) Walk-In [facility] 2022-04-15 00:00 prasterone (dhea) [facility] 2022-04-17 00:00 prasterone (dhea) [facility] [place] 2022-04-18 00:00 prasterone (dhea) [facility] 2022-04-19 00:00 prasterone (dhea) [facility] 2022-04-20 00:00 prasterone (dhea) [facility] 2022-04-21 00:00 prasterone (dhea) [facility] 2022-04-22 00:00 prasterone (dhea) [facility] 2022-04-23 00:00 prasterone (dhea) [facility] 2022-04-24 00:00 prasterone (dhea) [facility] 2022-04-25 00:00 prasterone (dhea) [facility] 2022-04-26 00:00 prasterone (dhea) [facility] [place] 2022-04-27 00:00 prasterone (dhea) [facility] [place] 2022-04-28 00:00 prasterone (dhea) [facility] [place] 2022-04-29 00:00 prasterone (dhea) [facility] [place] 2022-04-30 00:00 prasterone (dhea) [facility] [place] 2022-05-01 00:00 prasterone (dhea) [facility] [place] 2022-05-02 00:00 prasterone (dhea) [facility] [place] 2022-05-03 00:00 prasterone (dhea) [facility] [place] 2022-05-04 00:00 prasterone (dhea) [facility] [place] 2022-05-05 00:00 prasterone (dhea) [facility] [place] 2022-05-07 00:00 prasterone (dhea) [facility] [place] 2022-05-08 00:00 prasterone (dhea) [facility] [place] 2022-05-09 00:00 prasterone (dhea) [facility] [place] 2022-05-10 00:00 prasterone (dhea) [facility] [place] 2022-05-11 00:00 prasterone (dhea) [facility] [place] 2022-05-12 00:00 prasterone (dhea) [facility] [place] 2022-05-18 00:00 prasterone (dhea) [facility] [place] 2022-05-20 00:00 prasterone (dhea) [facility] hreb [facility] [place] 2022-04-15 00:00 prasterone (dhea) [facility] [place] 2022-04-17 00:00 prasterone (dhea) [facility] [place] 2022-04-18 00:00 prasterone (dhea) [facility] [place] 2022-04-19 00:00 prasterone (dhea) [facility] [place] 2022-04-20 00:00 prasterone (dhea) [facility] [place] 2022-04-21 00:00 prasterone (dhea) [facility] [place] 2022-04-22 00:00 prasterone (dhea) [facility] [place] 2022-04-23 00:00 prasterone (dhea) [facility] [place] 2022-04-24 00:00 prasterone (dhea) [facility] [place] 2022-04-25 00:00 prasterone (dhea) [facility] [place] 2022-04-26 00:00 prasterone (dhea) [facility] [place] 2022-04-27 00:00 prasterone (dhea) [facility] [place] 2022-04-28 00:00 prasterone (dhea) [facility] [place] 2022-04-29 00:00 prasterone (dhea) [facility] [place] 2022-04-30 00:00 prasterone (dhea) [facility] [place] 2022-05-01 00:00 prasterone (dhea) [facility] [place] 2022-05-02 00:00 prasterone (dhea) [facility] [place] 2022-05-03 00:00 prasterone (dhea) [facility] [place] 2022-05-04 00:00 prasterone (dhea) [facility] [place] 2022-05-05 00:00 prasterone (dhea) [facility] [place] 2022-05-07 00:00 prasterone (dhea) [facility] [place] 2022-05-08 00:00 prasterone (dhea) [facility] [place] 2022-05-09 00:00 prasterone (dhea) [facility] [place] 2022-05-10 00:00 prasterone (dhea) [facility] [place] 2022-05-11 00:00 prasterone (dhea) [facility] [place] 2022-05-12 00:00 prasterone (dhea) [facility] [place] 2022-05-18 00:00 prasterone (dhea) [facility] [place] 2022-05-20 00:00 prasterone (dhea) [facility] [place] 2022-04-15 00:00 prasterone (dhea) [facility] [place] 2022-04-17 00:00 prasterone (dhea) [facility] [place] 2022-04-18 00:00 prasterone (dhea) [facility] [place] 2022-04-19 00:00 prasterone (dhea) [facility] [place] 2022-04-20 00:00 prasterone (dhea) [facility] [place] 2022-04-21 00:00 prasterone (dhea) [facility] [place] 2022-04-22 00:00 prasterone (dhea) [facility] [place] 2022-04-23 00:00 prasterone (dhea) [facility] [place] 2022-04-24 00:00 prasterone (dhea) [facility] [place] 2022-04-25 00:00 prasterone (dhea) [facility] [place] 2022-04-26 00:00 prasterone (dhea) [facility] [place] 2022-04-27 00:00 prasterone (dhea) [facility] [place] 2022-04-28 00:00 prasterone (dhea) [facility] [place] 2022-04-29 00:00 prasterone (dhea) [facility] 2022-04-30 00:00 prasterone (dhea) [facility] [place] 2022-05-01 00:00 prasterone (dhea) [facility] 2022-05-02 00:00 prasterone (dhea) [facility] [place] 2022-05-03 00:00 prasterone (dhea) [facility] [place] 2022-05-04 00:00 prasterone (dhea) Walk[facility]In [facility] 2022-05-05 00:00 prasterone (dhea) Walk[facility]In [facility] 2022-05-07 00:00 prasterone (dhea) Walk[facility]In [facility] 2022-05-08 00:00 prasterone (dhea) Walk-In [facility] [place] 2022-05-09 00:00 prasterone (dhea) Walk-In Clinic Prim [facility] 2022-05-10 00:00 prasterone (dhea) Walk-In Clinic Prim [facility] & Anc[facility] Services [facility] 2022-05-11 00:00 prasterone (dhea) Walk-In Clinic Prim [facility] & Anc[facility] Services [facility] 2022-05-12 00:00 prasterone (dhea) Walk[facility] [place] 2022-05-18 00:00 prasterone (dhea) Walk[facility] [place] 2022-05-20 00:00 prasterone (dhea) Walk[facility]In [facility] [place] 2022-04-15 00:00 cholecalciferol (vitamin d3) Walk-In [facility] Primary Care & Ancillary Services [facility] 2022-04-17 00:00 cholecalciferol (vitamin d3) Walk-In [facility] Primary Care & Ancillary Services [facility] 2022-04-18 00:00 cholecalciferol (vitamin d3) Walk-In [facility] Primary Care & Ancillary Services [facility] 2022-04-19 00:00 cholecalciferol (vitamin d3) Walk-In [facility] Primary Care [facility] Anc[facility] Services [facility] 2022-04-20 00:00 cholecalciferol (vitamin d3) Walk-In [facility] Primary Care [facility] Anc[facility] Services [facility] 2022-04-21 00:00 cholecalciferol (vitamin d3) Walk-In [facility] Primary [facility] Anc[facility] 2022-04-22 00:00 cholecalciferol (vitamin d3) Walk-In [facility] Care [facility] Anc[facility] 2022-04-23 00:00 cholecalciferol (vitamin d3) Walk-In [facility] Primary Care [facility] Anc[facility] 2022-04-24 00:00 cholecalciferol (vitamin d3) Walk-In [facility] Primary Care [facility] Anc[facility] 2022-04-25 00:00 cholecalciferol (vitamin d3) Walk-In [facility] Primary Care [facility] Anc[facility] 2022-04-26 00:00 cholecalciferol (vitamin d3) Walk-In [facility] Primary Care [facility] Anc[facility] 2022-04-27 00:00 cholecalciferol (vitamin d3) Walk-In [facility] Primary [facility] Anc[facility] 2022-04-28 00:00 cholecalciferol (vitamin d3) Walk-In [facility] 2022-04-29 00:00 cholecalciferol (vitamin d3) Walk-In [facility] 2022-04-30 00:00 cholecalciferol (vitamin d3) Walk-In [facility] 2022-05-01 00:00 cholecalciferol (vitamin d3) Walk-In [facility] 2022-05-02 00:00 cholecalciferol (vitamin d3) Walk-In [facility] Anc[facility] 2022-05-03 00:00 cholecalciferol (vitamin d3) Walk-In [facility] Primary [facility] Anc[facility] 2022-05-04 00:00 cholecalciferol (vitamin d3) Walk-In [facility] Primary Care & Ancillary Services [facility] 2022-05-05 00:00 cholecalciferol (vitamin d3) Walk-In [facility] Primary Care & Ancillary Services [facility] 2022-05-07 00:00 cholecalciferol (vitamin d3) Walk-In [facility] Primary Care & Ancillary Services [facility] 2022-05-08 00:00 cholecalciferol (vitamin d3) Walk-In [facility] Primary Care [facility] Anc[facility] Services [facility] 2022-05-09 00:00 cholecalciferol (vitamin d3) Walk-In [facility] Primary Care & Anc[facility] Services [facility] 2022-05-10 00:00 cholecalciferol (vitamin d3) Walk-In [facility] Primary Care [facility] Anc[facility] Services [facility] 2022-05-11 00:00 cholecalciferol (vitamin d3) Walk-In [facility] Primary Care & Ancillary Services [facility] 2022-05-12 00:00 cholecalciferol (vitamin d3) Walk-In [facility] Primary Care & Ancillary Services [facility] 2022-05-18 00:00 cholecalciferol (vitamin d3) Walk-In [facility] Primary Care [facility] Anc[facility] Services [facility] 2022-05-20 00:00 cholecalciferol (vitamin d3) Walk-In [facility] Care [facility] Anc[facility] Services [facility] 2022-04-15 00:00 lysine Walk-In Clinic [facility] 2022-04-17 00:00 lysine Walk-In Clinic [facility] 2022-04-18 00:00 lysine Walk-In Clinic [facility] 2022-04-19 00:00 lysine Walk-In Clinic [facility] 2022-04-20 00:00 lysine Walk-In Clinic [facility] 2022-04-21 00:00 lysine Walk-In Clinic [facility] 2022-04-22 00:00 lysine Walk-In Clinic [facility] 2022-04-23 00:00 lysine Walk-In Clinic [facility] 2022-04-24 00:00 lysine Walk[facility]In [facility] [place] 2022-04-25 00:00 lysine Walk[facility] [place] 2022-04-26 00:00 lysine [facility] [place] 2022-04-27 00:00 lysine Walk[facility] [place] 2022-04-28 00:00 lysine Walk[facility] [place] 2022-04-29 00:00 lysine Walk[facility] [place] 2022-04-30 00:00 lysine Walk[facility] [place] 2022-05-01 00:00 lysine Walk[facility]In [facility] [place] 2022-05-02 00:00 lysine Walk[facility] [place] 2022-05-03 00:00 lysine Walk[facility] [place] 2022-05-04 00:00 lysine [facility] [place] 2022-05-05 00:00 lysine [facility] [place] 2022-05-07 00:00 lysine Walk[facility] [place] 2022-05-08 00:00 lysine [facility] [place] 2022-05-09 00:00 lysine [facility] [place] 2022-05-10 00:00 lysine [facility] [place] 2022-05-11 00:00 lysine [facility] [place] 2022-05-12 00:00 lysine [facility] [place] 2022-05-18 00:00 lysine [facility] [place] 2022-05-20 00:00 lysine [facility] [place] 2022-04-15 00:00 prasterone (dhea) [facility] [place] 2022-04-17 00:00 prasterone (dhea) [facility] [place] 2022-04-18 00:00 prasterone (dhea) [facility] [place] 2022-04-19 00:00 prasterone (dhea) [facility] [place] 2022-04-20 00:00 prasterone (dhea) [facility] [place] 2022-04-21 00:00 prasterone (dhea) [facility] [place] 2022-04-22 00:00 prasterone (dhea) [facility] [place] 2022-04-23 00:00 prasterone (dhea) [facility] [place] 2022-04-24 00:00 prasterone (dhea) [facility] [place] 2022-04-25 00:00 prasterone (dhea) [facility] [place] 2022-04-26 00:00 prasterone (dhea) [facility] [place] 2022-04-27 00:00 prasterone (dhea) [facility] [place] 2022-04-28 00:00 prasterone (dhea) [facility] [place] 2022-04-29 00:00 prasterone (dhea) [facility] [place] 2022-04-30 00:00 prasterone (dhea) [facility] [place] 2022-05-01 00:00 prasterone (dhea) [facility] [place] 2022-05-02 00:00 prasterone (dhea) [facility] [place] 2022-05-03 00:00 prasterone (dhea) [facility] [place] 2022-05-04 00:00 prasterone (dhea) [facility] [place] 2022-05-05 00:00 prasterone (dhea) [facility] [place] [place] 2022-05-07 00:00 prasterone (dhea) [facility] [place] 2022-05-08 00:00 prasterone (dhea) [facility] [place] 2022-05-09 00:00 prasterone (dhea) [facility] [place] 2022-05-10 00:00 prasterone (dhea) [facility] [place] 2022-05-11 00:00 prasterone (dhea) [facility] [place] 2022-05-12 00:00 prasterone (dhea) [facility] 2022-05-18 00:00 prasterone (dhea) [facility] 2022-05-20 00:00 prasterone (dhea) [facility] [place] [place] Problems date description facility 2022-05-08 00:00 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 [facility] [place] 2022-05-08 00:00 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 v[facility] [place] [facility] 2022-05-08 00:00 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 [facility] [place] [place] 2022-05-18 00:00 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 [facility] [place] 2022-05-18 00:00 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 [facility] Primary Care & multiple sites [facility] 2022-05-18 00:00 Traumatic arthropathy, multiple [facility] n [facility] Procedures date description facility 2022-05-18 00:00 Visit Code Hold [facility] [place] Results/Labs test date author facility value unit interpret ation Result panel 1 (unknown) (no date) (unknown) Walk-In (no value) [facility]units [facility]own[facility] Primary unknown[facility] [place] Result panel 2 (unknown) (no date) (unknown) Walk-In (no value) [facility]units [facility]own[facility] [place] Result panel 3 (unknown) (no date) (unknown) Walk-In (no value) [facility]units [facility]own[facility] [place] Result panel 4 (unknown) (no date) (unknown) Walk[facility]In (no value) [facility]units [facility]own[facility] [place] Result panel 5 (unknown) (no date) (unknown) Walk-In (no value) [facility]units [facility] [place] Result panel 6 (unknown) (no date) (unknown) Walk-In (no value) [facility]units [facility]own[facility] [place] Result panel 7 (unknown) (no date) (unknown) Walk-In (no value) [facility]units [facility]own[facility] [place] Result panel 8 (unknown) (no date) (unknown) Walk-In (no value) [facility]units [facility]own[facility] [place] Result panel 9 (unknown) (no date) (unknown) Walk-In (no value) [facility]units [facility]own[facility] [place] Result panel 10 (unknown) (no date) (unknown) Walk-In (no value) [facility]units [facility]own[facility] [place] Result panel 11 (unknown) (no date) (unknown) Walk-In (no value) [facility]units [facility]own[facility] [place] Result panel 12 (unknown) (no date) (unknown) Walk-In (no value) [facility]units ([facility] nown[facility] [place] Result panel 13 (unknown) (no date) (unknown) Walk-In (no value) [facility]units [facility]own[facility] [place] Result panel 14 (unknown) (no date) (unknown) Walk-In (no value) [facility]units [facility]own[facility] [place] Result panel 15 (unknown) (no date) (unknown) Walk-In (no value) [facility]units [facility] [place] Result panel 16 (unknown) (no date) (unknown) Walk-In (no value) [facility]units [facility] [place] Result panel 17 (unknown) (no date) (unknown) Walk-In (no value) [facility]units [facility] [place] Result panel 18 (unknown) (no date) (unknown) Walk-In (no value) [facility]units [facility]own[facility] [place] Result panel 19 (unknown) (no date) (unknown) Walk-In (no value) [facility]units [facility] [place] Result panel 20 (unknown) (no date) (unknown) Walk-In (no value) [facility]units [facility] [place] Result panel 21 (unknown) (no date) (unknown) Walk-In (no value) [facility]units [facility] [place] Result panel 22 (unknown) (no date) (unknown) Walk-In (no value) [facility]units ([facility] [place] Result panel 23 (unknown) (no date) (unknown) Walk-In (no value) [facility]units ([facility] [place] Result panel 24 (unknown) (no date) (unknown) Walk-In (no value) [facility]units [facility] [place] Result panel 25 (unknown) (no date) (unknown) Walk-In (no value) [facility]units ([facility] [place] Result panel 26 (unknown) (no date) (unknown) Walk-In (no value) [facility]units [facility] [place] Result panel 27 (unknown) (no date) (unknown) Walk-In (no value) [facility]units ([facility] [place] Result panel 28 (unknown) (no date) (unknown) Walk-In (no value) [facility]units ([facility] [place] Result panel 29 (unknown) (no date) (unknown) Walk-In (no value) (units ([facility] [place] Result panel 30 (unknown) (no date) (unknown) Walk-In (no value) (units ([facility] [place] Result panel 31 (unknown) (no date) (unknown) Walk-In (no value) (units ([facility] [place] Result panel 32 (unknown) (no date) (unknown) Walk-In (no value) [facility]units ([facility]own[facility] [place] Result panel 33 (unknown) (no date) (unknown) Walk-In (no value) (units ([facility] [place] Result panel 34 (unknown) (no date) (unknown) Walk-In (no value) [facility]units ([facility] [place] Result panel 35 (unknown) (no date) (unknown) Walk-In (no value) (units ([facility]own[facility] [place] Result panel 36 (unknown) (no date) (unknown) Walk-In (no value) (units ([facility] nown[facility] [place] Result panel 37 (unknown) (no date) (unknown) Walk-In (no value) (units ([facility]own[facility] [place] Result panel 38 (unknown) (no date) (unknown) Walk-In (no value) (units ([facility]own[facility] [place] Result panel 39 (unknown) (no date) (unknown) Walk-In (no value) (units ([facility] nown[facility] [place] Result panel 40 (unknown) (no date) (unknown) Walk-In (no value) (units ([facility] nown[facility] [place] Result panel 41 (unknown) (no date) (unknown) Walk-In (no value) (units ([facility] nown) [facility] [place] Result panel 42 (unknown) (no date) (unknown) Walk-In (no value) (units ([facility] nown) [facility] [place] Result panel 43 (unknown) (no date) (unknown) Walk-In (no value) (units ([facility] nown) [facility] [place] Result panel 44 (unknown) (no date) (unknown) Walk-In (no value) (units ([facility] nown[facility] [place] Result panel 45 (unknown) (no date) (unknown) Walk-In (no value) (units ([facility] nown[facility] [place] Result panel 46 (unknown) (no date) (unknown) Walk-In (no value) (units ([facility] nown) [facility] [place] Result panel 47 (unknown) (no date) (unknown) Walk-In (no value) (units ([facility] nown[facility] [place] Result panel 48 (unknown) (no date) (unknown) Walk-In (no value) (units ([facility] nown) [facility] [place] Result panel 49 (unknown) (no date) (unknown) Walk-In (no value) (units ([facility] nown) [facility] [place] Result panel 50 (unknown) (no date) (unknown) Walk-In (no value) (units ([facility] nown) [facility] [place] Result panel 51 (unknown) (no date) (unknown) Walk-In (no value) (units ([facility] nown) [facility] [place] Result panel 52 (unknown) (no date) (unknown) Walk-In (no value) (units ([facility] nown[facility] [place] Result panel 53 (unknown) (no date) (unknown) Walk-In (no value) (units ([facility] nown) [facility] [place] Result panel 54 (unknown) (no date) (unknown) Walk-In (no value) (units ([facility] nown) [facility] [place] Result panel 55 (unknown) (no date) (unknown) Walk-In (no value) (units ([facility] nown) [facility] [place] Result panel 56 (unknown) (no date) (unknown) Walk-In (no value) (units ([facility] nown) [facility] [place] Result panel 57 (unknown) (no date) (unknown) Walk-In (no value) (units ([facility] nown[facility] [place] Result panel 58 (unknown) (no date) (unknown) Walk-In (no value) (units ([facility] nown) [facility] [place] Result panel 59 (unknown) (no date) (unknown) Walk-In (no value) (units ([facility] nown) [facility] Result panel 60 (unknown) (no date) (unknown) Walk-In (no value) (units ([facility] nown) [facility] [place] Result panel 61 (unknown) (no date) (unknown) Walk-In (no value) (units ([facility] nown) [facility] Result panel 62 (unknown) (no date) (unknown) Walk-In (no value) (units ([facility] nown[facility] Result panel 63 (unknown) (no date) (unknown) Walk-In (no value) (units ([facility] nown) [facility] Result panel 64 (unknown) (no date) (unknown) Walk-In (no value) (units ([facility] nown) [facility] Result panel 65 (unknown) (no date) (unknown) Walk-In (no value) (units ([facility] nown) [facility] Result panel 66 (unknown) (no date) (unknown) Walk-In (no value) (units ([facility] nown[facility] Result panel 67 (unknown) (no date) (unknown) Walk-In (no value) (units ([facility] nown[facility] Result panel 68 (unknown) (no date) (unknown) Walk-In (no value) (units ([facility] nown) [facility] Result panel 69 (unknown) (no date) (unknown) Walk-In (no value) (units ([facility] nown) [facility] Result panel 70 (unknown) (no date) (unknown) Walk-In (no value) (units ([facility] nown) [facility] [place] Result panel 71 (unknown) (no date) (unknown) Walk-In (no value) (units ([facility] nown) [facility] unknown[facility] [place] Result panel 72 (unknown) (no date) (unknown) Walk-In (no value) (units ([facility] nown) [facility] unknown[facility] Result panel 73 (unknown) (no date) (unknown) Walk-In (no value) (units ([facility] nown) [facility] unknown[facility] [place] Result panel 74 (unknown) (no date) (unknown) Walk-In (no value) (units ([facility] nown) [facility] Result panel 75 (unknown) (no date) (unknown) Walk-In (no value) (units ([facility] nown) [facility] Result panel 76 (unknown) (no date) (unknown) Walk-In (no value) (units ([facility] nown) [facility] Result panel 77 (unknown) (no date) (unknown) Walk-In (no value) (units ([facility] nown) [facility] Result panel 78 (unknown) (no date) (unknown) Walk-In (no value) (units ([facility] nown) [facility] Result panel 79 (unknown) (no date) (unknown) Walk-In (no value) (units ([facility] nown) [facility] Result panel 80 (unknown) (no date) (unknown) Walk-In (no value) (units ([facility] nown) [facility] Result panel 81 (unknown) (no date) (unknown) Walk-In (no value) (units ([facility] nown) [facility] Result panel 82 (unknown) (no date) (unknown) Walk-In (no value) (units ([facility] nown) [facility] Result panel 83 (unknown) (no date) (unknown) Walk-In (no value) (units ([facility] nown) [facility] Result panel 84 (unknown) (no date) (unknown) Walk-In (no value) (units ([facility] nown) [facility] unknown[facility] Result panel 85 (unknown) (no date) (unknown) Walk-In (no value) (units ([facility] nown) [facility] Result panel 86 (unknown) (no date) (unknown) Walk-In (no value) (units ([facility] nown) [facility] Result panel 87 (unknown) (no date) (unknown) Walk-In (no value) (units ([facility] nown) [facility] Result panel 88 (unknown) (no date) (unknown) Walk-In (no value) (units ([facility] nown) [facility] Result panel 89 (unknown) (no date) (unknown) Walk-In (no value) (units ([facility] nown) [facility] Result panel 90 (unknown) (no date) (unknown) Walk-In (no value) (units ([facility] nown) [facility] Result panel 91 (unknown) (no date) (unknown) Walk-In (no value) (units ([facility] nown) [facility] Result panel 92 (unknown) (no date) (unknown) Walk-In (no value) (units ([facility] nown) [facility] Result panel 93 (unknown) (no date) (unknown) Walk-In (no value) (units ([facility] nown) [facility] Result panel 94 (unknown) (no date) (unknown) Walk-In (no value) (units ([facility] nown) [facility] Result panel 95 (unknown) (no date) (unknown) Walk-In (no value) (units ([facility] nown) [facility] Result panel 96 (unknown) (no date) (unknown) Walk-In (no value) (units (unk nown) [facility] unknown) [facility] Result panel 97 (unknown) (no date) (unknown) [facility] value[facility] Result panel 98 (unknown) (no date) (unknown) [facility] (no value) [facility] Result panel 99 (unknown) (no date) (unknown) [facility] (no value) [facility] Result panel 100 (unknown) (no date) (unknown) [facility] (no value) [facility] Result panel 101 (unknown) (no date) (unknown) [facility] (no value) [facility] Result panel 102 (unknown) (no date) (unknown) [facility] (no value) [facility] Result panel 103 (unknown) (no date) (unknown) [facility] (no value) [facility] Result panel 104 (unknown) (no date) (unknown) [facility] (no value) [facility] Result panel 105 (unknown) (no date) (unknown) [facility] (no value) [facility] Result panel 106 (unknown) (no date) (unknown) [facility] (no value) [facility] Result panel 107 (unknown) (no date) (unknown) [facility] (no value) [facility] Result panel 108 (unknown) (no date) (unknown) [facility]no value) [facility] Result panel 109 (unknown) (no date) (unknown) [facility] (no value) [facility] Result panel 110 (unknown) (no date) (unknown) [facility] (no value) [facility] Result panel 111 (unknown) (no date) (unknown) [facility] (no value) [facility] Result panel 112 (unknown) (no date) (unknown) [facility] (no value) [facility] Result panel 113 (unknown) (no date) (unknown) [facility]no value) [facility] Result panel 114 (unknown) (no date) (unknown) [facility] (no value) [facility] Result panel 115 (unknown) (no date) (unknown) [facility]no value) [facility] Result panel 116 (unknown) (no date) (unknown) [facility] (no value) [facility] Result panel 117 (unknown) (no date) (unknown) [facility] (no value) [facility] Result panel 118 (unknown) (no date) (unknown) [facility] (no value) [facility] Result panel 119 (unknown) (no date) (unknown) [facility] (no value) [facility] Result panel 120 (unknown) (no date) (unknown) [facility] (no value) [facility] Result panel 121 (unknown) (no date) (unknown) [facility] (no value) [facility] Result panel 122 (unknown) (no date) (unknown) [facility] (no value) [facility] Result panel 123 (unknown) (no date) (unknown) [facility] (no value) [facility] Result panel 124 (unknown) (no date) (unknown) [facility] (no value) [facility] Result panel 125 (unknown) (no date) (unknown) [facility] (no value) [facility] Result panel 126 (unknown) (no date) (unknown) [facility] (no value) [facility] Result panel 127 (unknown) (no date) (unknown) [facility] (no value) [facility] Result panel 128 (unknown) (no date) (unknown) [facility] (no value) [facility] Result panel 129 (unknown) (no date) (unknown) [facility] (no value) [facility] Result panel 130 (unknown) (no date) (unknown) [facility] (no value) [facility] Result panel 131 (unknown) (no date) (unknown) [facility] (no value) [facility] Result panel 132 (unknown) (no date) (unknown) [facility] (no value) [facility] Result panel 133 (unknown) (no date) (unknown) [facility] (no value) [facility] Result panel 134 (unknown) (no date) (unknown) [facility] (no value) [facility] Result panel 135 (unknown) (no date) (unknown) [facility] (no value) [facility] Result panel 136 (unknown) (no date) (unknown) [facility] (no value) [facility] Result panel 137 (unknown) (no date) (unknown) [facility] (no value) [facility] Result panel 138 (unknown) (no date) (unknown) [facility] (no value) [facility] Result panel 139 (unknown) (no date) (unknown) [facility] (no value) [facility] Result panel 140 (unknown) (no date) (unknown) [facility] (no value) [facility] Result panel 141 (unknown) (no date) (unknown) [facility] (no value) [facility] Result panel 142 (unknown) (no date) (unknown) [facility] (no value) [facility] Result panel 143 (unknown) (no date) (unknown) [facility] (no value) [facility] Result panel 144 (unknown) (no date) (unknown) [facility] (no value) [facility] Result panel 145 (unknown) (no date) (unknown) [facility] (no value) [facility] Result panel 146 (unknown) (no date) (unknown) [facility] (no value) [facility] Result panel 147 (unknown) (no date) (unknown) [facility] (no value) [facility] Result panel 148 (unknown) (no date) (unknown) [facility] (no value) [facility] Result panel 149 (unknown) (no date) (unknown) [facility] (no value) [facility] Result panel 150 (unknown) (no date) (unknown) [facility] (no value) [facility] Result panel 151 (unknown) (no date) (unknown) [facility] (no value) [facility] Result panel 152 (unknown) (no date) (unknown) [facility] (no value) [facility] Result panel 153 (unknown) (no date) (unknown) [facility] (no value) [facility] Result panel 154 (unknown) (no date) (unknown) [facility] (no value) [facility] Result panel 155 (unknown) (no date) (unknown) [facility] (no value) [facility] Result panel 156 (unknown) (no date) (unknown) [facility] (no value) [facility] Result panel 157 (unknown) (no date) (unknown) [facility] (no value) [facility] Result panel 158 (unknown) (no date) (unknown) [facility] (no value) [facility] Result panel 159 (unknown) (no date) (unknown) [facility] (no value) [facility] Result panel 160 (unknown) (no date) (unknown) [facility] (no value) [facility] Result panel 161 (unknown) (no date) (unknown) [facility] (no value) [facility] Result panel 162 (unknown) (no date) (unknown) [facility] (no value) [facility] Result panel 163 (unknown) (no date) (unknown) [facility] (no value) [facility] Result panel 164 (unknown) (no date) (unknown) [facility] (no value) [facility] Result panel 165 (unknown) (no date) (unknown) [facility] (no value) [facility] Result panel 166 (unknown) (no date) (unknown) [facility] (no value) [facility] Result panel 167 (unknown) (no date) (unknown) [facility] (no value) [facility] Result panel 168 (unknown) (no date) (unknown) [facility] (no value) [facility] Result panel 169 (unknown) (no date) (unknown) [facility] (no value) [facility] Result panel 170 (unknown) (no date) (unknown) [facility] (no value) [facility] Result panel 171 (unknown) (no date) (unknown) [facility] (no value) [facility] Result panel 172 (unknown) (no date) (unknown) [facility] (no value) [facility] Result panel 173 (unknown) (no date) (unknown) [facility] (no value) [facility] Result panel 174 (unknown) (no date) (unknown) [facility] (no value) [facility] Result panel 175 (unknown) (no date) (unknown) [facility] (no value) [facility] Result panel 176 (unknown) (no date) (unknown) [facility] (no value) [facility] Result panel 177 (unknown) (no date) (unknown) [facility] (no value) [facility] Result panel 178 (unknown) (no date) (unknown) [facility] (no value) [facility] Result panel 179 (unknown) (no date) (unknown) [facility] (no value) [facility] Result panel 180 (unknown) (no date) (unknown) [facility] (no value) [facility] Result panel 181 (unknown) (no date) (unknown) [facility] (no value) [facility] Result panel 182 (unknown) (no date) (unknown) [facility] (no value) [facility] Result panel 183 (unknown) (no date) (unknown) [facility] (no value) [facility] Result panel 184 (unknown) (no date) (unknown) [facility] (no value) [facility] Result panel 185 (unknown) (no date) (unknown) [facility] (no value) [facility] Result panel 186 (unknown) (no date) (unknown) [facility] (no value) [facility] Result panel 187 (unknown) (no date) (unknown) [facility] (no value) [facility] Result panel 188 (unknown) (no date) (unknown) [facility] (no value) [facility] Result panel 189 (unknown) (no date) (unknown) [facility] (no value) [facility] Result panel 190 (unknown) (no date) (unknown) [facility] (no value) [facility] Result panel 191 (unknown) (no date) (unknown) [facility] (no value) [facility] Result panel 192 (unknown) (no date) (unknown) [facility] (no value) [facility] Result panel 193 (unknown) (no date) (unknown) [facility] (no value) [facility] Result panel 194 (unknown) (no date) (unknown) [facility] (no value) [facility] Result panel 195 (unknown) (no date) (unknown) [facility] (no value) [facility] Result panel 196 (unknown) (no date) (unknown) [facility] (no value) [facility] Result panel 197 (unknown) (no date) (unknown) [facility] (no value) [facility] Result panel 198 (unknown) (no date) (unknown) [facility] (no value) [facility] Result panel 199 (unknown) (no date) (unknown) [facility] (no value) [facility] Result panel 200 (unknown) (no date) (unknown) [facility] (no value) [facility] Result panel 201 (unknown) (no date) (unknown) [facility] (no value) [facility] Result panel 202 (unknown) (no date) (unknown) [facility] (no value) [facility] Result panel 203 (unknown) (no date) (unknown) [facility] (no value) [facility] Result panel 204 (unknown) (no date) (unknown) [facility] (no value) [facility] Result panel 205 (unknown) (no date) (unknown) [facility] (no value) [facility] Result panel 206 (unknown) (no date) (unknown) [facility] (no value) [facility] Result panel 207 (unknown) (no date) (unknown) [facility] (no value) [facility] Result panel 208 (unknown) (no date) (unknown) [facility] (no value) [facility] Result panel 209 (unknown) (no date) (unknown) [facility] (no value) [facility] Result panel 210 (unknown) (no date) (unknown) [facility] (no value) [facility] Result panel 211 (unknown) (no date) (unknown) [facility] (no value) [facility] Result panel 212 (unknown) (no date) (unknown) [facility] (no value) [facility] Result panel 213 (unknown) (no date) (unknown) [facility] (no value) [facility] Result panel 214 (unknown) (no date) (unknown) [facility] (no value) [facility] Result panel 215 (unknown) (no date) (unknown) [facility] (no value) [facility] Result panel 216 (unknown) (no date) (unknown) [facility] (no value) [facility] Result panel 217 (unknown) (no date) (unknown) [facility] (no value) [facility] Result panel 218 (unknown) (no date) (unknown) [facility] (no value) [facility] Result panel 219 (unknown) (no date) (unknown) [facility] (no value) [facility] Result panel 220 (unknown) (no date) (unknown) [facility] (no value) [facility] Result panel 221 (unknown) (no date) (unknown) [facility] (no value) [facility] Result panel 222 (unknown) (no date) (unknown) [facility] (no value) [facility] Result panel 223 (unknown) (no date) (unknown) [facility] (no value) [facility] Result panel 224 (unknown) (no date) (unknown) [facility] (no value) [facility] Result panel 225 (unknown) (no date) (unknown) [facility] (no value) [facility] Result panel 226 (unknown) (no date) (unknown) [facility] (no value) [facility] Result panel 227 (unknown) (no date) (unknown) [facility] (no value) [facility] Result panel 228 (unknown) (no date) (unknown) [facility] (no value) [facility] Result panel 229 (unknown) (no date) (unknown) [facility] (no value) [facility] Result panel 230 (unknown) (no date) (unknown) [facility] (no value) [facility] Result panel 231 (unknown) (no date) (unknown) [facility] (no value) [facility] Result panel 232 (unknown) (no date) (unknown) [facility] (no value) [facility] Result panel 233 (unknown) (no date) (unknown) [facility] (no value) [facility] Result panel 234 (unknown) (no date) (unknown) [facility] (no value) [facility] Result panel 235 (unknown) (no date) (unknown) [facility] (no value) [facility] Result panel 236 (unknown) (no date) (unknown) [facility] (no value) [facility] Result panel 237 (unknown) (no date) (unknown) [facility] (no value) [facility] Result panel 238 (unknown) (no date) (unknown) [facility] (no value) [facility] Result panel 239 (unknown) (no date) (unknown) [facility] (no value) [facility] Result panel 240 (unknown) (no date) (unknown) [facility] (no value) [facility] Result panel 241 (unknown) (no date) (unknown) [facility] (no value) [facility] Result panel 242 (unknown) (no date) (unknown) [facility] (no value) [facility] Result panel 243 (unknown) (no date) (unknown) [facility] (no value) [facility] Result panel 244 (unknown) (no date) (unknown) [facility] (no value) [facility] Result panel 245 (unknown) (no date) (unknown) [facility] (no value) [facility] Result panel 246 (unknown) (no date) (unknown) [facility] (no value) [facility] Result panel 247 (unknown) (no date) (unknown) [facility] (no value) [facility] Result panel 248 (unknown) (no date) (unknown) [facility] (no value) [facility] Result panel 249 (unknown) (no date) (unknown) [facility] (no value) [facility] Result panel 250 (unknown) (no date) (unknown) [facility] (no value) [facility] Result panel 251 (unknown) (no date) (unknown) [facility] (no value) [facility] Result panel 252 (unknown) (no date) (unknown) [facility] (no value) [facility] Result panel 253 (unknown) (no date) (unknown) [facility] (no value) [facility] Result panel 254 (unknown) (no date) (unknown) [facility] (no value) [facility] Result panel 255 (unknown) (no date) (unknown) [facility] (no value) [facility] Result panel 256 (unknown) (no date) (unknown) [facility] (no value) [facility] Result panel 257 (unknown) (no date) (unknown) [facility] (no value) [facility] Result panel 258 (unknown) (no date) (unknown) [facility] (no value) [facility] Result panel 259 (unknown) (no date) (unknown) [facility] (no value) [facility] Result panel 260 (unknown) (no date) (unknown) [facility] (no value) [facility] Result panel 261 (unknown) (no date) (unknown) [facility] (no value) [facility] Result panel 262 (unknown) (no date) (unknown) [facility] (no value) [facility] Result panel 263 (unknown) (no date) (unknown) [facility] (no value) [facility] Result panel 264 (unknown) (no date) (unknown) [facility] (no value) [facility] Result panel 265 (unknown) (no date) (unknown) [facility] (no value) [facility] Result panel 266 (unknown) (no date) (unknown) [facility] (no value) [facility] [facility] Result panel 267 (unknown) (no date) (unknown) [facility] value[facility] Result panel 268 (unknown) (no date) (unknown) [facility] value[facility] Result panel 269 (unknown) (no date) (unknown) [facility]no value[facility] Result panel 270 (unknown) (no date) (unknown) [facility] value[facility] Result panel 271 (unknown) (no date) (unknown) [facility]no value[facility] Result panel 272 (unknown) (no date) (unknown) [facility]no value[facility] Result panel 273 (unknown) (no date) (unknown) [facility]no value[facility] Result panel 274 (unknown) (no date) (unknown) [facility]no value[facility] Result panel 275 (unknown) (no date) (unknown) [facility] value[facility] Result panel 276 (unknown) (no date) (unknown) [facility]no value[facility] Result panel 277 (unknown) (no date) (unknown) [facility]no value[facility] Result panel 278 (unknown) (no date) (unknown) [facility]no value[facility] Result panel 279 (unknown) (no date) (unknown) [facility]no value[facility] Result panel 280 (unknown) (no date) (unknown) [facility]no value[facility] Result panel 281 (unknown) (no date) (unknown) [facility]no value[facility] Result panel 282 (unknown) (no date) (unknown) [facility]no value) [facility] Result panel 283 (unknown) (no date) (unknown) [facility]no value[facility] Result panel 284 (unknown) (no date) (unknown) [facility]no value[facility] Result panel 285 (unknown) (no date) (unknown) [facility]no value[facility] Result panel 286 (unknown) (no date) (unknown) [facility] value[facility] Result panel 287 (unknown) (no date) (unknown) [facility]no value) [facility] Result panel 288 (unknown) (no date) (unknown) [facility]no value[facility] Result panel 289 (unknown) (no date) (unknown) [facility]no value[facility] Result panel 290 (unknown) (no date) (unknown) [facility]no value) [facility] Result panel 291 (unknown) (no date) (unknown) [facility]no value) [facility] Result panel 292 (unknown) (no date) (unknown) [facility]no value[facility] Result panel 293 (unknown) (no date) (unknown) [facility]no value) [facility] Result panel 294 (unknown) (no date) (unknown) [facility]no value[facility] Result panel 295 (unknown) (no date) (unknown) [facility]no value[facility] Result panel 296 (unknown) (no date) (unknown) [facility]no value[facility] Result panel 297 (unknown) (no date) (unknown) [facility]no value[facility] Result panel 298 (unknown) (no date) (unknown) [facility]no value[facility] Result panel 299 (unknown) (no date) (unknown) [facility]no value[facility] Result panel 300 (unknown) (no date) (unknown) [facility]no value) [facility] Result panel 301 (unknown) (no date) (unknown) [facility]no value[facility] Result panel 302 (unknown) (no date) (unknown) [facility]no value[facility] Result panel 303 (unknown) (no date) (unknown) [facility]no value[facility] Result panel 304 (unknown) (no date) (unknown) [facility]no value[facility] Result panel 305 (unknown) (no date) (unknown) [facility]no value[facility] Result panel 306 (unknown) (no date) (unknown) [facility]no value[facility] Result panel 307 (unknown) (no date) (unknown) [facility]no value) [facility] Result panel 308 (unknown) (no date) (unknown) [facility]no value) [facility] Result panel 309 (unknown) (no date) (unknown) [facility] (no value) [facility] Result panel 310 (unknown) (no date) (unknown) [facility] (no value) [facility] Result panel 311 (unknown) (no date) (unknown) [facility] (no value) [facility] Result panel 312 (unknown) (no date) (unknown) [facility]no value[facility] Result panel 313 (unknown) (no date) (unknown) [facility] (no value) [facility] Result panel 314 (unknown) (no date) (unknown) [facility]no value) [facility] Result panel 315 (unknown) (no date) (unknown) [facility] (no value) [facility] Result panel 316 (unknown) (no date) (unknown) [facility] (no value) [facility] Result panel 317 (unknown) (no date) (unknown) [facility]no value) [facility] Result panel 318 (unknown) (no date) (unknown) [facility]no value) [facility] Result panel 319 (unknown) (no date) (unknown) [facility] (no value) [facility] Result panel 320 (unknown) (no date) (unknown) [facility] (no value) [facility] Result panel 321 (unknown) (no date) (unknown) [facility]no value) [facility] Result panel 322 (unknown) (no date) (unknown) [facility]no value) [facility] Result panel 323 (unknown) (no date) (unknown) [facility]no value) [facility] Result panel 324 (unknown) (no date) (unknown) [facility]no value) [facility] Result panel 325 (unknown) (no date) (unknown) [facility]no value[facility] Result panel 326 (unknown) (no date) (unknown) [facility] value[facility] Result panel 327 (unknown) (no date) (unknown) [facility] value[facility] Result panel 328 (unknown) (no date) (unknown) [facility]no value[facility] Result panel 329 (unknown) (no date) (unknown) [facility]no value[facility] Result panel 330 (unknown) (no date) (unknown) [facility]no value[facility] Result panel 331 (unknown) (no date) (unknown) [facility] value[facility] Result panel 332 (unknown) (no date) (unknown) [facility] value[facility] Result panel 333 (unknown) (no date) (unknown) [facility]no value[facility] Result panel 334 (unknown) (no date) (unknown) [facility]no value[facility] Result panel 335 (unknown) (no date) (unknown) [facility]no value[facility] Result panel 336 (unknown) (no date) (unknown) [facility]no value[facility] Result panel 337 (unknown) (no date) (unknown) [facility]no value[facility] Result panel 338 (unknown) (no date) (unknown) [facility]no value) [facility] Result panel 339 (unknown) (no date) (unknown) [facility] (no value[facility] Result panel 340 (unknown) (no date) (unknown) [facility]no value) [facility] Result panel 341 (unknown) (no date) (unknown) [facility]no value) [facility] Result panel 342 (unknown) (no date) (unknown) [facility]no value[facility] Result panel 343 (unknown) (no date) (unknown) [facility]no value) [facility] Result panel 344 (unknown) (no date) (unknown) [facility] (no value) [facility] Result panel 345 (unknown) (no date) (unknown) [facility]no value[facility] Result panel 346 (unknown) (no date) (unknown) [facility]no value[facility] Result panel 347 (unknown) (no date) (unknown) [facility]no value) [facility] Result panel 348 (unknown) (no date) (unknown) [facility] (no value) [facility] Result panel 349 (unknown) (no date) (unknown) [facility] (no value) [facility] Result panel 350 (unknown) (no date) (unknown) [facility]no value) [facility] Result panel 351 (unknown) (no date) (unknown) [facility] (no value) [facility] Result panel 352 (unknown) (no date) (unknown) [facility]no value) [facility] Result panel 353 (unknown) (no date) (unknown) [facility]no value) [facility] Result panel 354 (unknown) (no date) (unknown) [facility]no value) [facility] Result panel 355 (unknown) (no date) (unknown) [facility] (no value) [facility] Result panel 356 (unknown) (no date) (unknown) [facility]no value[facility] Result panel 357 (unknown) (no date) (unknown) [facility]no value[facility] Result panel 358 (unknown) (no date) (unknown) [facility]no value[facility] Result panel 359 (unknown) (no date) (unknown) [facility]no value[facility] Result panel 360 (unknown) (no date) (unknown) [facility] value[facility] Result panel 361 (unknown) (no date) (unknown) [facility] value[facility] Result panel 362 (unknown) (no date) (unknown) [facility] value[facility] Result panel 363 (unknown) (no date) (unknown) [facility] value[facility] Result panel 364 (unknown) (no date) (unknown) [facility] value[facility] Result panel 365 (unknown) (no date) (unknown) [facility] value[facility] Result panel 366 (unknown) (no date) (unknown) [facility] value[facility] Result panel 367 (unknown) (no date) (unknown) [facility] value[facility] Result panel 368 (unknown) (no date) (unknown) [facility] value[facility] Result panel 369 (unknown) (no date) (unknown) [facility] value[facility] Result panel 370 (unknown) (no date) (unknown) [facility]no value[facility] Result panel 371 (unknown) (no date) (unknown) [facility] value[facility] Result panel 372 (unknown) (no date) (unknown) [facility] value[facility] Result panel 373 (unknown) (no date) (unknown) [facility] value[facility] Result panel 374 (unknown) (no date) (unknown) [facility] value[facility] Result panel 375 (unknown) (no date) (unknown) [facility] value[facility] Result panel 376 (unknown) (no date) (unknown) [facility]no value[facility] Result panel 377 (unknown) (no date) (unknown) [facility]no value) [facility] Result panel 378 (unknown) (no date) (unknown) [facility]no value[facility] Result panel 379 (unknown) (no date) (unknown) [facility] (no value[facility] Result panel 380 (unknown) (no date) (unknown) [facility]no value[facility] Result panel 381 (unknown) (no date) (unknown) [facility]no value[facility] Result panel 382 (unknown) (no date) (unknown) [facility] value[facility] Result panel 383 (unknown) (no date) (unknown) [facility]no value) [facility] Result panel 384 (unknown) (no date) (unknown) [facility] ([facility] value) [facility] Result panel 385 (unknown) (no date) (unknown) [facility] (no value) [facility] Result panel 386 (unknown) (no date) (unknown) [facility]no value) [facility] Result panel 387 (unknown) (no date) (unknown) [facility] value) [facility] Result panel 388 (unknown) (no date) (unknown) [facility] (no value) [facility] Result panel 389 (unknown) (no date) (unknown) [facility] (no value) [facility] Result panel 390 (unknown) (no date) (unknown) [facility] (no value) [facility] Result panel 391 (unknown) (no date) (unknown) [facility] (no value) [facility] Result panel 392 (unknown) (no date) (unknown) [facility] ([facility] value) [facility] Result panel 393 (unknown) (no date) (unknown) [facility] (no value) [facility] Result panel 394 (unknown) (no date) (unknown) [facility] (no value) [facility] Result panel 395 (unknown) (no date) (unknown) [facility] (no value) [facility] Result panel 396 (unknown) (no date) (unknown) [facility] (no value) [facility] Result panel 397 (unknown) (no date) (unknown) [facility] (no value) [facility] Result panel 398 (unknown) (no date) (unknown) [facility] (no value) [facility] Result panel 399 (unknown) (no date) (unknown) [facility] (no value) [facility] Result panel 400 (unknown) (no date) (unknown) [facility] value) [facility] Result panel 401 (unknown) (no date) (unknown) [facility] value[facility] Result panel 402 (unknown) (no date) (unknown) [facility] ([facility] value) [facility] Result panel 403 (unknown) (no date) (unknown) [facility] (no value) [facility] Result panel 404 (unknown) (no date) (unknown) [facility] ([facility] value) [facility] Result panel 405 (unknown) (no date) (unknown) [facility] value) [facility] Result panel 406 (unknown) (no date) (unknown) [facility] value[facility] Result panel 407 (unknown) (no date) (unknown) [facility] value) [facility] Result panel 408 (unknown) (no date) (unknown) [facility] value) [facility] Result panel 409 (unknown) (no date) (unknown) [facility] ([facility] value) [facility] Result panel 410 (unknown) (no date) (unknown) [facility] ([facility] value) [facility] Result panel 411 (unknown) (no date) (unknown) [facility] Result panel 412 (unknown) (no date) (unknown) [facility] ([facility] value) [facility] Result panel 413 (unknown) (no date) (unknown) [facility] ([facility] value) [facility] Result panel 414 (unknown) (no date) (unknown) [facility] ([facility] value) [facility] Result panel 415 (unknown) (no date) (unknown) [facility] value[facility] Result panel 416 (unknown) (no date) (unknown) [facility] ([facility] value) [facility] Result panel 417 (unknown) (no date) (unknown) [facility] ([facility] value) [facility] Result panel 418 (unknown) (no date) (unknown) [facility] (no value) [facility] Result panel 419 (unknown) (no date) (unknown) [facility] ([facility] value) [facility] Result panel 420 (unknown) (no date) (unknown) [facility] value[facility] Result panel 421 (unknown) (no date) (unknown) [facility] value) [facility] Result panel 422 (unknown) (no date) (unknown) [facility] ([facility] value) [facility] Result panel 423 (unknown) (no date) (unknown) [facility] ([facility] value[facility] Result panel 424 (unknown) (no date) (unknown) [facility] value[facility] Result panel 425 (unknown) (no date) (unknown) [facility] value[facility] Result panel 426 (unknown) (no date) (unknown) [facility] (no value) [facility] Result panel 427 (unknown) (no date) (unknown) [facility] (no value) [facility] Result panel 428 (unknown) (no date) (unknown) [facility] (no value) [facility] Result panel 429 (unknown) (no date) (unknown) [facility] (no value) [facility] Result panel 430 (unknown) (no date) (unknown) [facility] (no value) [facility] Result panel 431 (unknown) (no date) (unknown) [facility] (no value) [facility] Result panel 432 (unknown) (no date) (unknown) [facility] (no value) [facility] Result panel 433 (unknown) (no date) (unknown) [facility] (no value) [facility] Result panel 434 (unknown) (no date) (unknown) [facility] (no value) [facility] Result panel 435 (unknown) (no date) (unknown) [facility] (no value[facility] Result panel 436 (unknown) (no date) (unknown) [facility] (no value) [facility] Result panel 437 (unknown) (no date) (unknown) [facility] (no value) [facility] Result panel 438 (unknown) (no date) (unknown) [facility] (no value) [facility] Result panel 439 (unknown) (no date) (unknown) [facility] (no value) [facility] Result panel 440 (unknown) (no date) (unknown) [facility] (no value) [facility] Result panel 441 (unknown) (no date) (unknown) [facility] (no value) [facility] Result panel 442 (unknown) (no date) (unknown) [facility] (no value) [facility] Result panel 443 (unknown) (no date) (unknown) [facility] (no value) [facility] Result panel 444 (unknown) (no date) (unknown) [facility] (no value) [facility] Result panel 445 (unknown) (no date) (unknown) [facility] (no value) [facility] Result panel 446 (unknown) (no date) (unknown) [facility] (no value) [facility] Result panel 447 (unknown) (no date) (unknown) [facility] (no value) [facility] Result panel 448 (unknown) (no date) (unknown) [facility] (no value) [facility] Result panel 449 (unknown) (no date) (unknown) [facility] (no value) [facility] Result panel 450 (unknown) (no date) (unknown) [facility] (no value) [facility] Result panel 451 (unknown) (no date) (unknown) [facility] (no value) [facility] Result panel 452 (unknown) (no date) (unknown) [facility] (no value) [facility] Result panel 453 (unknown) (no date) (unknown) [facility] (no value) [facility] Result panel 454 (unknown) (no date) (unknown) [facility] (no value) [facility] Result panel 455 (unknown) (no date) (unknown) [facility] (no value) [facility] Result panel 456 (unknown) (no date) (unknown) [facility] (no value) [facility] Result panel 457 (unknown) (no date) (unknown) [facility] (no value) [facility] Result panel 458 (unknown) (no date) (unknown) [facility] (no value) [facility] Result panel 459 (unknown) (no date) (unknown) [facility] (no value) [facility] Result panel 460 (unknown) (no date) (unknown) [facility] (no value) [facility] Result panel 461 (unknown) (no date) (unknown) [facility] (no value) [facility] Result panel 462 (unknown) (no date) (unknown) [facility] (no value) [facility] Result panel 463 (unknown) (no date) (unknown) [facility] (no value) [facility] Result panel 464 (unknown) (no date) (unknown) [facility] (no value) [facility] Result panel 465 (unknown) (no date) (unknown) [facility] (no value) [facility] Result panel 466 (unknown) (no date) (unknown) [facility] (no value) [facility] Result panel 467 (unknown) (no date) (unknown) [facility] (no value) [facility] Result panel 468 (unknown) (no date) (unknown) [facility] (no value) [facility] Result panel 469 (unknown) (no date) (unknown) [facility] (no value) [facility] Result panel 470 (unknown) (no date) (unknown) [facility] (no value) [facility] Result panel 471 (unknown) (no date) (unknown) [facility] (no value) [facility] Result panel 472 (unknown) (no date) (unknown) [facility] (no value) [facility] Result panel 473 (unknown) (no date) (unknown) [facility] (no value) [facility] Result panel 474 (unknown) (no date) (unknown) [facility] (no value) [facility] Result panel 475 (unknown) (no date) (unknown) [facility] (no value) [facility] Result panel 476 (unknown) (no date) (unknown) [facility] (no value) [facility] Result panel 477 (unknown) (no date) (unknown) [facility] (no value) [facility] Result panel 478 (unknown) (no date) (unknown) [facility] (no value) [facility] Result panel 479 (unknown) (no date) (unknown) [facility] (no value) [facility] Result panel 480 (unknown) (no date) (unknown) [facility] (no value) [facility] Result panel 481 (unknown) (no date) (unknown) [facility] (no value) [facility] Result panel 482 (unknown) (no date) (unknown) [facility] (no value) [facility] Result panel 483 (unknown) (no date) (unknown) [facility] (no value) [facility] Result panel 484 (unknown) (no date) (unknown) [facility] (no value) [facility] Result panel 485 (unknown) (no date) (unknown) [facility] (no value) [facility] Result panel 486 (unknown) (no date) (unknown) [facility] (no value) [facility] Result panel 487 (unknown) (no date) (unknown) [facility] (no value) [facility] Result panel 488 (unknown) (no date) (unknown) [facility] (no value) [facility] Result panel 489 (unknown) (no date) (unknown) [facility] (no value) [facility] Result panel 490 (unknown) (no date) (unknown) [facility] (no value) [facility] Result panel 491 (unknown) (no date) (unknown) [facility] (no value) [facility] Result panel 492 (unknown) (no date) (unknown) [facility] (no value) [facility] Result panel 493 (unknown) (no date) (unknown) [facility] (no value) [facility] Result panel 494 (unknown) (no date) (unknown) [facility] (no value) [facility] Result panel 495 (unknown) (no date) (unknown) [facility] (no value) [facility] Result panel 496 (unknown) (no date) (unknown) [facility] (no value) [facility] Result panel 497 (unknown) (no date) (unknown) [facility] (no value) [facility] Result panel 498 (unknown) (no date) (unknown) [facility] (no value) [facility] Result panel 499 (unknown) (no date) (unknown) [facility] (no value) [facility] Result panel 500 (unknown) (no date) (unknown) [facility] (no value) [facility] Result panel 501 (unknown) (no date) (unknown) [facility] (no value) [facility] Result panel 502 (unknown) (no date) (unknown) [facility] (no value) [facility] Result panel 503 (unknown) (no date) (unknown) [facility] (no value) [facility] Result panel 504 (unknown) (no date) (unknown) [facility] (no value) [facility] Result panel 505 (unknown) (no date) (unknown) [facility] (no value) [facility] Result panel 506 (unknown) (no date) (unknown) [facility] (no value) [facility] Result panel 507 (unknown) (no date) (unknown) [facility] (no value) [facility] Result panel 508 (unknown) (no date) (unknown) [facility] (no value) [facility] Result panel 509 (unknown) (no date) (unknown) [facility] (no value) [facility] Result panel 510 (unknown) (no date) (unknown) [facility] (no value) [facility] Result panel 511 (unknown) (no date) (unknown) [facility] (no value) [facility] Result panel 512 (unknown) (no date) (unknown) [facility] (no value) [facility] Result panel 513 (unknown) (no date) (unknown) [facility] (no value) [facility] Result panel 514 (unknown) (no date) (unknown) [facility] (no value) [facility] Result panel 515 (unknown) (no date) (unknown) [facility] (no value) [facility] Result panel 516 (unknown) (no date) (unknown) [facility] (no value) [facility] Result panel 517 (unknown) (no date) (unknown) [facility] (no value) [facility] Result panel 518 (unknown) (no date) (unknown) [facility] (no value) [facility] Result panel 519 (unknown) (no date) (unknown) [facility] (no value) [facility] Result panel 520 (unknown) (no date) (unknown) [facility] (no value) [facility] Result panel 521 (unknown) (no date) (unknown) [facility] (no value) [facility] Result panel 522 (unknown) (no date) (unknown) [facility] (no value) [facility] Result panel 523 (unknown) (no date) (unknown) [facility] (no value) [facility] Result panel 524 (unknown) (no date) (unknown) [facility] (no value) [facility] Result panel 525 (unknown) (no date) (unknown) [facility] (no value) [facility] Result panel 526 (unknown) (no date) (unknown) [facility] (no value) [facility] Result panel 527 (unknown) (no date) (unknown) [facility] (no value) [facility] Result panel 528 (unknown) (no date) (unknown) [facility] (no value) [facility] Result panel 529 (unknown) (no date) (unknown) [facility] (no value) [facility] Result panel 530 (unknown) (no date) (unknown) [facility] (no value) [facility] Result panel 531 (unknown) (no date) (unknown) [facility] (no value) [facility] Result panel 532 (unknown) (no date) (unknown) [facility] (no value) [facility] Result panel 533 (unknown) (no date) (unknown) [facility] (no value) [facility] Result panel 534 (unknown) (no date) (unknown) [facility] (no value) [facility] Result panel 535 (unknown) (no date) (unknown) [facility] (no value) [facility] Result panel 536 (unknown) (no date) (unknown) [facility] (no value) [facility] Result panel 537 (unknown) (no date) (unknown) [facility] (no value) [facility] Result panel 538 (unknown) (no date) (unknown) [facility] (no value) [facility] Result panel 539 (unknown) (no date) (unknown) [facility] (no value) [facility] Result panel 540 (unknown) (no date) (unknown) [facility] (no value) [facility] Result panel 541 (unknown) (no date) (unknown) [facility] (no value) [facility] Result panel 542 (unknown) (no date) (unknown) [facility] (no value) [facility] Result panel 543 (unknown) (no date) (unknown) [facility] (no value) [facility] Result panel 544 (unknown) (no date) (unknown) [facility] (no value) [facility] Result panel 545 (unknown) (no date) (unknown) [facility] (no value) [facility] Result panel 546 (unknown) (no date) (unknown) [facility] (no value) [facility] Result panel 547 (unknown) (no date) (unknown) [facility] (no value) [facility] Result panel 548 (unknown) (no date) (unknown) [facility] (no value) [facility] Result panel 549 (unknown) (no date) (unknown) [facility] (no value) [facility] Result panel 550 (unknown) (no date) (unknown) [facility] (no value) [facility] Result panel 551 (unknown) (no date) (unknown) [facility] (no value) [facility] Result panel 552 (unknown) (no date) (unknown) [facility] (no value) [facility] Result panel 553 (unknown) (no date) (unknown) [facility] (no value) [facility] Result panel 554 (unknown) (no date) (unknown) [facility] (no value) [facility] Result panel 555 (unknown) (no date) (unknown) [facility] (no value) [facility] Result panel 556 (unknown) (no date) (unknown) [facility] (no value) [facility] Result panel 557 (unknown) (no date) (unknown) [facility] (no value) [facility] Result panel 558 (unknown) (no date) (unknown) [facility] (no value) [facility] Result panel 559 (unknown) (no date) (unknown) [facility] (no value) [facility] Result panel 560 (unknown) (no date) (unknown) [facility] (no value) [facility] Result panel 561 (unknown) (no date) (unknown) [facility] (no value) [facility] Result panel 562 (unknown) (no date) (unknown) [facility] (no value) [facility] Result panel 563 (unknown) (no date) (unknown) [facility] (no value) [facility] Result panel 564 (unknown) (no date) (unknown) [facility] (no value) [facility] Result panel 565 (unknown) (no date) (unknown) [facility] (no value) [facility] Result panel 566 (unknown) (no date) (unknown) [facility] (no value) [facility] Result panel 567 (unknown) (no date) (unknown) [facility] (no value) [facility] Result panel 568 (unknown) (no date) (unknown) [facility] (no value) [facility] Result panel 569 (unknown) (no date) (unknown) [facility] (no value) [facility] Result panel 570 (unknown) (no date) (unknown) [facility] (no value) [facility] Result panel 571 (unknown) (no date) (unknown) [facility] (no value) [facility] Result panel 572 (unknown) (no date) (unknown) [facility] (no value) [facility] Result panel 573 (unknown) (no date) (unknown) [facility] (no value) [facility] Result panel 574 (unknown) (no date) (unknown) [facility] (no value) [facility] Result panel 575 (unknown) (no date) (unknown) [facility] (no value) [facility] Result panel 576 (unknown) (no date) (unknown) [facility] (no value) [facility] Result panel 577 (unknown) (no date) (unknown) [facility] (no value) [facility] Result panel 578 (unknown) (no date) (unknown) [facility] (no value) [facility] Result panel 579 (unknown) (no date) (unknown) [facility] (no value) [facility] Result panel 580 (unknown) (no date) (unknown) [facility] (no value) [facility] Result panel 581 (unknown) (no date) (unknown) [facility] (no value) [facility] Result panel 582 (unknown) (no date) (unknown) [facility] (no value) [facility] Result panel 583 (unknown) (no date) (unknown) [facility] (no value) [facility] Result panel 584 (unknown) (no date) (unknown) [facility] (no value) [facility] Result panel 585 (unknown) (no date) (unknown) [facility] (no value) [facility] Result panel 586 (unknown) (no date) (unknown) [facility] (no value) [facility] Result panel 587 (unknown) (no date) (unknown) [facility] (no value) [facility] Result panel 588 (unknown) (no date) (unknown) [facility] (no value) [facility] Result panel 589 (unknown) (no date) (unknown) [facility] (no value) [facility] Result panel 590 (unknown) (no date) (unknown) [facility] (no value) [facility] Result panel 591 (unknown) (no date) (unknown) [facility] (no value) [facility] Result panel 592 (unknown) (no date) (unknown) [facility] (no value) [facility] Result panel 593 (unknown) (no date) (unknown) [facility] (no value) [facility] Result panel 594 (unknown) (no date) (unknown) [facility] (no value) [facility] Result panel 595 (unknown) (no date) (unknown) [facility] (no value) [facility] Result panel 596 (unknown) (no date) (unknown) [facility] (no value) [facility] Result panel 597 (unknown) (no date) (unknown) [facility] (no value) [facility] Result panel 598 (unknown) (no date) (unknown) [facility] (no value) [facility] Result panel 599 (unknown) (no date) (unknown) [facility] (no value) [facility] Result panel 600 (unknown) (no date) (unknown) [facility] (no value) [facility] Result panel 601 (unknown) (no date) (unknown) [facility] (no value) [facility] Result panel 602 (unknown) (no date) (unknown) [facility] (no value) [facility] Result panel 603 (unknown) (no date) (unknown) [facility] (no value) [facility] Result panel 604 (unknown) (no date) (unknown) [facility] (no value) [facility] Result panel 605 (unknown) (no date) (unknown) [facility] (no value) [facility] Result panel 606 (unknown) (no date) (unknown) [facility] (no value) [facility] Result panel 607 (unknown) (no date) (unknown) [facility] value[facility] Result panel 608 (unknown) (no date) (unknown) [facility]no value[facility] Result panel 609 (unknown) (no date) (unknown) [facility] (no value) [facility] Result panel 610 (unknown) (no date) (unknown) [facility] (no value) [facility] Result panel 611 (unknown) (no date) (unknown) [facility] (no value) [facility] Result panel 612 (unknown) (no date) (unknown) [facility] (no value) [facility] Result panel 613 (unknown) (no date) (unknown) [facility] (no value) [facility] Result panel 614 (unknown) (no date) (unknown) [facility] (no value) [facility] Result panel 615 (unknown) (no date) (unknown) [facility] (no value) [facility] Result panel 616 (unknown) (no date) (unknown) [facility] (no value) [facility] Result panel 617 (unknown) (no date) (unknown) [facility] (no value) [facility] Result panel 618 (unknown) (no date) (unknown) [facility] (no value) [facility] Result panel 619 (unknown) (no date) (unknown) [facility] (no value) [facility] Result panel 620 (unknown) (no date) (unknown) [facility] (no value) [facility] Result panel 621 (unknown) (no date) (unknown) [facility] (no value) [facility] Result panel 622 (unknown) (no date) (unknown) [facility] (no value) [facility] Result panel 623 (unknown) (no date) (unknown) [facility] (no value) [facility] Result panel 624 (unknown) (no date) (unknown) [facility] (no value) [facility] Result panel 625 (unknown) (no date) (unknown) [facility] (no value) [facility] Result panel 626 (unknown) (no date) (unknown) [facility] (no value) [facility] Result panel 627 (unknown) (no date) (unknown) [facility] (no value) [facility] Result panel 628 (unknown) (no date) (unknown) [facility] (no value) [facility] Result panel 629 (unknown) (no date) (unknown) [facility] (no value) [facility] Result panel 630 (unknown) (no date) (unknown) [facility] (no value) [facility] Result panel 631 (unknown) (no date) (unknown) [facility] (no value) [facility] Result panel 632 (unknown) (no date) (unknown) [facility] (no value) [facility] Result panel 633 (unknown) (no date) (unknown) [facility] (no value) [facility] Result panel 634 (unknown) (no date) (unknown) [facility] (no value) [facility] Result panel 635 (unknown) (no date) (unknown) [facility] (no value) [facility] Result panel 636 (unknown) (no date) (unknown) [facility] (no value) [facility] Result panel 637 (unknown) (no date) (unknown) [facility] (no value) [facility] Result panel 638 (unknown) (no date) (unknown) [facility] (no value) [facility] Result panel 639 (unknown) (no date) (unknown) [facility] (no value) [facility] Result panel 640 (unknown) (no date) (unknown) [facility] (no value) [facility] Result panel 641 (unknown) (no date) (unknown) [facility] (no value) [facility] Result panel 642 (unknown) (no date) (unknown) [facility] (no value) [facility] Result panel 643 (unknown) (no date) (unknown) [facility] (no value) [facility] Result panel 644 (unknown) (no date) (unknown) [facility] (no value) [facility] Result panel 645 (unknown) (no date) (unknown) [facility] (no value) [facility] Result panel 646 (unknown) (no date) (unknown) [facility] (no value) [facility] Result panel 647 (unknown) (no date) (unknown) [facility] (no value) [facility] Result panel 648 (unknown) (no date) (unknown) [facility] (no value) [facility] Result panel 649 (unknown) (no date) (unknown) [facility] (no value) [facility] Result panel 650 (unknown) (no date) (unknown) [facility] (no value) [facility] Result panel 651 (unknown) (no date) (unknown) [facility] (no value) [facility] Result panel 652 (unknown) (no date) (unknown) [facility] (no value) [facility] Result panel 653 (unknown) (no date) (unknown) [facility] (no value) [facility] Result panel 654 (unknown) (no date) (unknown) [facility] (no value) [facility] Result panel 655 (unknown) (no date) (unknown) [facility] (no value) [facility] Result panel 656 (unknown) (no date) (unknown) [facility] (no value) [facility] Result panel 657 (unknown) (no date) (unknown) [facility] (no value) [facility] Result panel 658 (unknown) (no date) (unknown) [facility] (no value) [facility] Result panel 659 (unknown) (no date) (unknown) [facility] (no value) [facility] Result panel 660 (unknown) (no date) (unknown) [facility] (no value) [facility] Result panel 661 (unknown) (no date) (unknown) [facility] (no value) [facility] Result panel 662 (unknown) (no date) (unknown) [facility] (no value) [facility] Result panel 663 (unknown) (no date) (unknown) [facility] (no value) [facility] Result panel 664 (unknown) (no date) (unknown) [facility] (no value) [facility] Result panel 665 (unknown) (no date) (unknown) [facility] (no value) [facility] Result panel 666 (unknown) (no date) (unknown) [facility] (no value) [facility] Result panel 667 (unknown) (no date) (unknown) [facility] (no value) [facility] Result panel 668 (unknown) (no date) (unknown) [facility] (no value) [facility] Result panel 669 (unknown) (no date) (unknown) [facility] (no value) [facility] Result panel 670 (unknown) (no date) (unknown) [facility] (no value) [facility] Result panel 671 (unknown) (no date) (unknown) [facility] (no value) [facility] Result panel 672 (unknown) (no date) (unknown) [facility] (no value) [facility] Result panel 673 (unknown) (no date) (unknown) [facility] (no value) [facility] Result panel 674 (unknown) (no date) (unknown) [facility] (no value) [facility] Result panel 675 (unknown) (no date) (unknown) [facility] (no value) [facility] Result panel 676 (unknown) (no date) (unknown) [facility] (no value) [facility] Result panel 677 (unknown) (no date) (unknown) [facility] (no value) [facility] Result panel 678 (unknown) (no date) (unknown) [facility] (no value) [facility] Result panel 679 (unknown) (no date) (unknown) [facility] (no value) [facility] Result panel 680 (unknown) (no date) (unknown) [facility] (no value) [facility] Result panel 681 (unknown) (no date) (unknown) [facility] (no value) [facility] Result panel 682 (unknown) (no date) (unknown) [facility] (no value) [facility] Result panel 683 (unknown) (no date) (unknown) [facility] (no value) [facility] Result panel 684 (unknown) (no date) (unknown) [facility] (no value) [facility] Result panel 685 (unknown) (no date) (unknown) [facility] (no value) [facility] Result panel 686 (unknown) (no date) (unknown) [facility] (no value) [facility] Result panel 687 (unknown) (no date) (unknown) [facility] (no value) [facility] Result panel 688 (unknown) (no date) (unknown) [facility] (no value) [facility] Result panel 689 (unknown) (no date) (unknown) [facility] (no value) [facility] Result panel 690 (unknown) (no date) (unknown) [facility] (no value) [facility] Result panel 691 (unknown) (no date) (unknown) [facility] (no value) [facility] Result panel 692 (unknown) (no date) (unknown) [facility] (no value) [facility] Result panel 693 (unknown) (no date) (unknown) [facility] (no value) [facility] Result panel 694 (unknown) (no date) (unknown) [facility] (no value) [facility] Result panel 695 (unknown) (no date) (unknown) [facility] (no value) [facility] Result panel 696 (unknown) (no date) (unknown) [facility] (no value) [facility] Result panel 697 (unknown) (no date) (unknown) [facility] (no value) [facility] Result panel 698 (unknown) (no date) (unknown) [facility] (no value) [facility] Result panel 699 (unknown) (no date) (unknown) [facility] (no value) [facility] Result panel 700 (unknown) (no date) (unknown) [facility] (no value) [facility] Result panel 701 (unknown) (no date) (unknown) [facility] (no value) [facility] Result panel 702 (unknown) (no date) (unknown) [facility] (no value) [facility] Result panel 703 (unknown) (no date) (unknown) [facility] (no value) [facility] Result panel 704 (unknown) (no date) (unknown) [facility] (no value) [facility] Result panel 705 (unknown) (no date) (unknown) [facility] (no value) [facility] Result panel 706 (unknown) (no date) (unknown) [facility] (no value) [facility] Result panel 707 (unknown) (no date) (unknown) [facility] (no value) [facility] Result panel 708 (unknown) (no date) (unknown) [facility] (no value) [facility] Result panel 709 (unknown) (no date) (unknown) [facility] (no value) [facility] Result panel 710 (unknown) (no date) (unknown) [facility] (no value) [facility] Result panel 711 (unknown) (no date) (unknown) [facility] (no value) [facility] Result panel 712 (unknown) (no date) (unknown) [facility] (no value) [facility] Result panel 713 (unknown) (no date) (unknown) [facility] (no value) [facility] Result panel 714 (unknown) (no date) (unknown) [facility] (no value) [facility] Result panel 715 (unknown) (no date) (unknown) [facility] (no value) [facility] Result panel 716 (unknown) (no date) (unknown) [facility] (no value) [facility] Result panel 717 (unknown) (no date) (unknown) [facility] (no value) [facility] Result panel 718 (unknown) (no date) (unknown) [facility] (no value) [facility] Result panel 719 (unknown) (no date) (unknown) [facility] (no value) [facility] Result panel 720 (unknown) (no date) (unknown) [facility] (no value) [facility] Result panel 721 (unknown) (no date) (unknown) [facility] (no value) [facility] Result panel 722 (unknown) (no date) (unknown) [facility] (no value) [facility] Result panel 723 (unknown) (no date) (unknown) [facility] (no value) [facility] Result panel 724 (unknown) (no date) (unknown) [facility] (no value) [facility] Result panel 725 (unknown) (no date) (unknown) [facility] (no value) [facility] Result panel 726 (unknown) (no date) (unknown) [facility] (no value) [facility] Result panel 727 (unknown) (no date) (unknown) [facility] (no value) [facility] Result panel 728 (unknown) (no date) (unknown) [facility] (no value) [facility] Result panel 729 (unknown) (no date) (unknown) [facility] (no value) [facility] Result panel 730 (unknown) (no date) (unknown) [facility] (no value) [facility] Result panel 731 (unknown) (no date) (unknown) [facility] (no value) [facility] Result panel 732 (unknown) (no date) (unknown) [facility] (no value) [facility] Result panel 733 (unknown) (no date) (unknown) [facility] (no value) [facility] Result panel 734 (unknown) (no date) (unknown) [facility] (no value) [facility] Result panel 735 (unknown) (no date) (unknown) [facility] (no value) [facility] Result panel 736 (unknown) (no date) (unknown) [facility] (no value) [facility] Result panel 737 (unknown) (no date) (unknown) [facility] (no value) [facility] Result panel 738 (unknown) (no date) (unknown) [facility] (no value) [facility] Result panel 739 (unknown) (no date) (unknown) [facility] (no value) [facility] Result panel 740 (unknown) (no date) (unknown) [facility] (no value) [facility] Result panel 741 (unknown) (no date) (unknown) [facility] (no value) [facility] Result panel 742 (unknown) (no date) (unknown) [facility] (no value) [facility] Result panel 743 (unknown) (no date) (unknown) [facility] (no value) [facility] Result panel 744 (unknown) (no date) (unknown) [facility] (no value) [facility] Result panel 745 (unknown) (no date) (unknown) [facility] (no value) [facility] Result panel 746 (unknown) (no date) (unknown) [facility] (no value) [facility] Result panel 747 (unknown) (no date) (unknown) [facility] (no value) [facility] Result panel 748 (unknown) (no date) (unknown) [facility] (no value) [facility] Result panel 749 (unknown) (no date) (unknown) [facility] (no value) [facility] Result panel 750 (unknown) (no date) (unknown) [facility] (no value) [facility] Result panel 751 (unknown) (no date) (unknown) [facility] (no value) [facility] Result panel 752 (unknown) (no date) (unknown) [facility] (no value) [facility] Result panel 753 (unknown) (no date) (unknown) [facility] (no value) [facility] Result panel 754 (unknown) (no date) (unknown) [facility] (no value) [facility] Result panel 755 (unknown) (no date) (unknown) [facility] (no value) [facility] Result panel 756 (unknown) (no date) (unknown) [facility] (no value) [facility] Result panel 757 (unknown) (no date) (unknown) [facility] (no value) [facility] Result panel 758 (unknown) (no date) (unknown) [facility] (no value) [facility] Result panel 759 (unknown) (no date) (unknown) [facility] (no value) [facility] Result panel 760 (unknown) (no date) (unknown) [facility] (no value) [facility] Result panel 761 (unknown) (no date) (unknown) [facility] (no value) [facility] Result panel 762 (unknown) (no date) (unknown) [facility] (no value) [facility] Result panel 763 (unknown) (no date) (unknown) [facility] (no value) [facility] Result panel 764 (unknown) (no date) (unknown) [facility] (no value) [facility] Result panel 765 (unknown) (no date) (unknown) [facility] (no value) [facility] Result panel 766 (unknown) (no date) (unknown) [facility] (no value) [facility] Result panel 767 (unknown) (no date) (unknown) [facility] (no value) [facility] Result panel 768 (unknown) (no date) (unknown) [facility] (no value) [facility] Result panel 769 (unknown) (no date) (unknown) [facility] (no value) [facility] Result panel 770 (unknown) (no date) (unknown) [facility] (no value) [facility] Result panel 771 (unknown) (no date) (unknown) [facility] (no value) [facility] Result panel 772 (unknown) (no date) (unknown) [facility] (no value) [facility] Result panel 773 (unknown) (no date) (unknown) [facility] (no value) [facility] Result panel 774 (unknown) (no date) (unknown) [facility] (no value) [facility] Result panel 775 (unknown) (no date) (unknown) [facility] (no value) [facility] Result panel 776 (unknown) (no date) (unknown) [facility] (no value) [facility] Result panel 777 (unknown) (no date) (unknown) Walk-In (no value) [facility] Result panel 778 (unknown) (no date) (unknown) Walk-In (no value) [facility] Result panel 779 (unknown) (no date) (unknown) Walk-In (no value) [facility] Result panel 780 (unknown) (no date) (unknown) Walk-In (no value) [facility] Result panel 781 (unknown) (no date) (unknown) Walk-In (no value) [facility] Result panel 782 (unknown) (no date) (unknown) Walk-In (no value) [facility] Result panel 783 (unknown) (no date) (unknown) Walk-In (no value) [facility] Result panel 784 (unknown) (no date) (unknown) Walk-In (no value) [facility] Result panel 785 (unknown) (no date) (unknown) Walk-In (no value) [facility] Result panel 786 (unknown) (no date) (unknown) Walk-In (no value) [facility] Result panel 787 (unknown) (no date) (unknown) Walk-In (no value) [facility] Result panel 788 (unknown) (no date) (unknown) Walk-In (no value) [facility] Result panel 789 (unknown) (no date) (unknown) Walk-In (no value) [facility] Result panel 790 (unknown) (no date) (unknown) Walk-In (no value) [facility] Result panel 791 (unknown) (no date) (unknown) Walk-In (no value) [facility] Result panel 792 (unknown) (no date) (unknown) Walk-In (no value) [facility] Result panel 793 (unknown) (no date) (unknown) Walk-In (no value) [facility] Result panel 794 (unknown) (no date) (unknown) Walk-In (no value) [facility] Result panel 795 (unknown) (no date) (unknown) Walk-In (no value) [facility] Result panel 796 (unknown) (no date) (unknown) Walk-In (no value) [facility] Result panel 797 (unknown) (no date) (unknown) Walk-In (no value) [facility] Result panel 798 (unknown) (no date) (unknown) Walk-In (no value) [facility] Result panel 799 (unknown) (no date) (unknown) Walk-In (no value) [facility] Result panel 800 (unknown) (no date) (unknown) Walk-In (no value) [facility] Result panel 801 (unknown) (no date) (unknown) Walk-In (no value) [facility] Result panel 802 (unknown) (no date) (unknown) Walk-In (no value) [facility] Result panel 803 (unknown) (no date) (unknown) Walk-In (no value) [facility] Result panel 804 (unknown) (no date) (unknown) Walk-In (no value) [facility] Result panel 805 (unknown) (no date) (unknown) Walk-In (no value) [facility] Result panel 806 (unknown) (no date) (unknown) Walk-In (no value) [facility] Result panel 807 (unknown) (no date) (unknown) Walk-In (no value) [facility] Result panel 808 (unknown) (no date) (unknown) Walk-In (no value) [facility] Result panel 809 (unknown) (no date) (unknown) Walk-In (no value) [facility] Result panel 810 (unknown) (no date) (unknown) Walk-In (no value) [facility] Result panel 811 (unknown) (no date) (unknown) Walk-In (no value) [facility] Result panel 812 (unknown) (no date) (unknown) Walk-In (no value) [facility] Result panel 813 (unknown) (no date) (unknown) Walk-In (no value) [facility] Result panel 814 (unknown) (no date) (unknown) Walk-In (no value) [facility] Result panel 815 (unknown) (no date) (unknown) Walk-In (no value) [facility] Result panel 816 (unknown) (no date) (unknown) Walk-In (no value) [facility] Result panel 817 (unknown) (no date) (unknown) Walk-In (no value) [facility] Result panel 818 (unknown) (no date) (unknown) [facility] (no value) [facility] Result panel 819 (unknown) (no date) (unknown) Walk-In (no value) [facility] Result panel 820 (unknown) (no date) (unknown) Walk-In (no value) [facility] Result panel 821 (unknown) (no date) (unknown) Walk-In (no value) [facility] Result panel 822 (unknown) (no date) (unknown) Walk-[facility] (no value) [facility] Result panel 823 (unknown) (no date) (unknown) Walk-In (no value) [facility] Result panel 824 (unknown) (no date) (unknown) Walk-In (no value) [facility] Result panel 825 (unknown) (no date) (unknown) Walk-In (no value) [facility] Result panel 826 (unknown) (no date) (unknown) Walk-In (no value) [facility] Result panel 827 (unknown) (no date) (unknown) Walk-In (no value) [facility] Result panel 828 (unknown) (no date) (unknown) Walk-In (no value) [facility] Result panel 829 (unknown) (no date) (unknown) Walk-In (no value) [facility] Result panel 830 (unknown) (no date) (unknown) Walk-In (no value) [facility] Result panel 831 (unknown) (no date) (unknown) Walk-In (no value) [facility] Result panel 832 (unknown) (no date) (unknown) Walk-In (no value) [facility] Result panel 833 (unknown) (no date) (unknown) [facility] (no value) [facility] Result panel 834 (unknown) (no date) (unknown) Walk-In (no value) [facility] Result panel 835 (unknown) (no date) (unknown) [facility] (no value) [facility] Result panel 836 (unknown) (no date) (unknown) [facility] (no value) [facility] Result panel 837 (unknown) (no date) (unknown) [facility] (no value) [facility] Result panel 838 (unknown) (no date) (unknown) [facility]-In (no value) [facility] Result panel 839 (unknown) (no date) (unknown) Walk-In (no value) [facility] Result panel 840 (unknown) (no date) (unknown) [facility] (no value) [facility] Result panel 841 (unknown) (no date) (unknown) [facility] (no value) [facility] Result panel 842 (unknown) (no date) (unknown) [facility] (no value) [facility] Result panel 843 (unknown) (no date) (unknown) Walk-[facility] (no value) [facility] Result panel 844 (unknown) (no date) (unknown) [facility] (no value) [facility] Result panel 845 (unknown) (no date) (unknown) Walk-In (no value) [facility] Result panel 846 (unknown) (no date) (unknown) [facility] (no value) [facility] Result panel 847 (unknown) (no date) (unknown) Walk-[facility] (no value) [facility] Result panel 848 (unknown) (no date) (unknown) Walk-In (no value) [facility] Result panel 849 (unknown) (no date) (unknown) Walk-In (no value) [facility] Result panel 850 (unknown) (no date) (unknown) [facility] (no value) [facility] Result panel 851 (unknown) (no date) (unknown) [facility]-In (no value) [facility] Result panel 852 (unknown) (no date) (unknown) Walk-In (no value) [facility] Result panel 853 (unknown) (no date) (unknown) [facility]-In (no value) [facility] Result panel 854 (unknown) (no date) (unknown) [facility] (no value) [facility] Result panel 855 (unknown) (no date) (unknown) [facility] (no value) [facility] Result panel 856 (unknown) (no date) (unknown) [facility] (no value) [facility] Result panel 857 (unknown) (no date) (unknown) Walk-[facility] (no value) [facility] Result panel 858 (unknown) (no date) (unknown) [facility] (no value) [facility] Result panel 859 (unknown) (no date) (unknown) [facility] (no value) [facility] Result panel 860 (unknown) (no date) (unknown) [facility] (no value) [facility] Result panel 861 (unknown) (no date) (unknown) [facility] (no value) [facility] Result panel 862 (unknown) (no date) (unknown) Walk-[facility] (no value) [facility] Result panel 863 (unknown) (no date) (unknown) Walk-[facility] (no value) [facility] Result panel 864 (unknown) (no date) (unknown) [facility] (no value) [facility] Result panel 865 (unknown) (no date) (unknown) Walk-[facility] (no value) [facility] Result panel 866 (unknown) (no date) (unknown) Walk-[facility] (no value) [facility] Result panel 867 (unknown) (no date) (unknown) Walk-[facility] (no value) [facility] Result panel 868 (unknown) (no date) (unknown) [facility] (no value) [facility] Result panel 869 (unknown) (no date) (unknown) [facility] (no value) [facility] Result panel 870 (unknown) (no date) (unknown) [facility] (no value) [facility] Result panel 871 (unknown) (no date) (unknown) [facility] (no value) [facility] Result panel 872 (unknown) (no date) (unknown) [facility] (no value) [facility] Result panel 873 (unknown) (no date) (unknown) [facility] (no value) [facility] Result panel 874 (unknown) (no date) (unknown) Walk-[facility] (no value) [facility] Result panel 875 (unknown) (no date) (unknown) [facility] (no value) [facility] Result panel 876 (unknown) (no date) (unknown) [facility] (no value) [facility] Result panel 877 (unknown) (no date) (unknown) [facility] (no value) [facility] Result panel 878 (unknown) (no date) (unknown) [facility] (no value) [facility] Result panel 879 (unknown) (no date) (unknown) [facility] (no value) [facility] Result panel 880 (unknown) (no date) (unknown) [facility] (no value) [facility] Result panel 881 (unknown) (no date) (unknown) [facility] (no value) [facility] Result panel 882 (unknown) (no date) (unknown) [facility] (no value) [facility] Result panel 883 (unknown) (no date) (unknown) [facility] (no value) [facility] Result panel 884 (unknown) (no date) (unknown) [facility] (no value) [facility] Result panel 885 (unknown) (no date) (unknown) [facility] (no value) [facility] Result panel 886 (unknown) (no date) (unknown) [facility] (no value) [facility] Result panel 887 (unknown) (no date) (unknown) [facility] (no value) [facility] Result panel 888 (unknown) (no date) (unknown) [facility] (no value) [facility] Result panel 889 (unknown) (no date) (unknown) [facility] (no value) [facility] Result panel 890 (unknown) (no date) (unknown) Walk-[facility] (no value) [facility] Result panel 891 (unknown) (no date) (unknown) [facility] (no value) [facility] Result panel 892 (unknown) (no date) (unknown) Walk-[facility] (no value) [facility] Result panel 893 (unknown) (no date) (unknown) Walk-[facility] (no value) [facility] Result panel 894 (unknown) (no date) (unknown) [facility] (no value) [facility] Result panel 895 (unknown) (no date) (unknown) [facility] (no value) [facility] Result panel 896 (unknown) (no date) (unknown) [facility] (no value) [facility] Result panel 897 (unknown) (no date) (unknown) [facility] (no value) [facility] Result panel 898 (unknown) (no date) (unknown) [facility] (no value) [facility] Result panel 899 (unknown) (no date) (unknown) [facility] (no value) [facility] Result panel 900 (unknown) (no date) (unknown) [facility] (no value) [facility] Result panel 901 (unknown) (no date) (unknown) [facility] (no value) [facility] Result panel 902 (unknown) (no date) (unknown) [facility] (no value) [facility] Result panel 903 (unknown) (no date) (unknown) Walk-[facility] (no value) [facility] Result panel 904 (unknown) (no date) (unknown) [facility] (no value) [facility] Result panel 905 (unknown) (no date) (unknown) [facility] (no value) [facility] Result panel 906 (unknown) (no date) (unknown) Walk-[facility] (no value) [facility] Result panel 907 (unknown) (no date) (unknown) [facility] (no value) [facility] Result panel 908 (unknown) (no date) (unknown) [facility] (no value) [facility] Result panel 909 (unknown) (no date) (unknown) [facility] (no value) [facility] Result panel 910 (unknown) (no date) (unknown) [facility] (no value) [facility] Result panel 911 (unknown) (no date) (unknown) [facility] (no value) [facility] Result panel 912 (unknown) (no date) (unknown) [facility] (no value) [facility] Result panel 913 (unknown) (no date) (unknown) [facility] (no value) [facility] Result panel 914 (unknown) (no date) (unknown) [facility] (no value) [facility] Result panel 915 (unknown) (no date) (unknown) [facility] (no value) [facility] Result panel 916 (unknown) (no date) (unknown) [facility] (no value) [facility] Result panel 917 (unknown) (no date) (unknown) [facility] (no value) [facility] Result panel 918 (unknown) (no date) (unknown) [facility] (no value) [facility] Result panel 919 (unknown) (no date) (unknown) [facility] (no value) [facility] Result panel 920 (unknown) (no date) (unknown) [facility] (no value) [facility] Result panel 921 (unknown) (no date) (unknown) [facility] (no value) [facility] Result panel 922 (unknown) (no date) (unknown) [facility] (no value) [facility] Result panel 923 (unknown) (no date) (unknown) [facility] (no value) [facility] Result panel 924 (unknown) (no date) (unknown) [facility] (no value) [facility] Result panel 925 (unknown) (no date) (unknown) [facility] (no value) [facility] Result panel 926 (unknown) (no date) (unknown) [facility] (no value) [facility] Result panel 927 (unknown) (no date) (unknown) [facility] (no value) [facility] Result panel 928 (unknown) (no date) (unknown) [facility] (no value) [facility] Result panel 929 (unknown) (no date) (unknown) [facility] (no value) [facility] Result panel 930 (unknown) (no date) (unknown) [facility] (no value) [facility] Result panel 931 (unknown) (no date) (unknown) [facility] (no value) [facility] Result panel 932 (unknown) (no date) (unknown) [facility] (no value) [facility] Result panel 933 (unknown) (no date) (unknown) [facility] (no value) [facility] Result panel 934 (unknown) (no date) (unknown) [facility] (no value) [facility] Result panel 935 (unknown) (no date) (unknown) [facility] (no value) [facility] Result panel 936 (unknown) (no date) (unknown) [facility] (no value) [facility] Result panel 937 (unknown) (no date) (unknown) [facility] (no value) [facility] Result panel 938 (unknown) (no date) (unknown) [facility] (no value) [facility] Result panel 939 (unknown) (no date) (unknown) [facility] (no value) [facility] Result panel 940 (unknown) (no date) (unknown) [facility] (no value) [facility] Result panel 941 (unknown) (no date) (unknown) [facility] (no value) [facility] Result panel 942 (unknown) (no date) (unknown) [facility] (no value) [facility] Result panel 943 (unknown) (no date) (unknown) [facility] (no value) [facility] Result panel 944 (unknown) (no date) (unknown) [facility] (no value) [facility] Result panel 945 (unknown) (no date) (unknown) [facility] (no value) [facility] Result panel 946 (unknown) (no date) (unknown) [facility] (no value) [facility] Result panel 947 (unknown) (no date) (unknown) [facility] (no value) [facility] Primary unknown) [facility] Result panel 948 (unknown) (no date) (unknown) [facility] Result panel 949 (unknown) (no date) (unknown) [facility] value[facility] Result panel 950 (unknown) (no date) (unknown) [facility]no value[facility] Result panel 951 (unknown) (no date) (unknown) [facility]no value[facility] Result panel 952 (unknown) (no date) (unknown) [facility]no value[facility] Result panel 953 (unknown) (no date) (unknown) [facility] (no value) [facility] Result panel 954 (unknown) (no date) (unknown) [facility] (no value) [facility] Result panel 955 (unknown) (no date) (unknown) [facility]no value) [facility] Result panel 956 (unknown) (no date) (unknown) [facility]no value[facility] Result panel 957 (unknown) (no date) (unknown) [facility]no value) [facility] Result panel 958 (unknown) (no date) (unknown) [facility]no value) [facility] Result panel 959 (unknown) (no date) (unknown) [facility]no value) [facility] Result panel 960 (unknown) (no date) (unknown) [facility]no value) [facility] Result panel 961 (unknown) (no date) (unknown) [facility]no value) [facility] Result panel 962 (unknown) (no date) (unknown) [facility] (no value) [facility] Result panel 963 (unknown) (no date) (unknown) [facility]no value) [facility] Result panel 964 (unknown) (no date) (unknown) [facility]no value) [facility] Result panel 965 (unknown) (no date) (unknown) [facility]no value[facility] Result panel 966 (unknown) (no date) (unknown) [facility]no value) [facility] Result panel 967 (unknown) (no date) (unknown) [facility]no value) [facility] Result panel 968 (unknown) (no date) (unknown) [facility]no value) [facility] Result panel 969 (unknown) (no date) (unknown) [facility]no value) [facility] Result panel 970 (unknown) (no date) (unknown) [facility] (no value) [facility] Result panel 971 (unknown) (no date) (unknown) [facility]no value) [facility] Result panel 972 (unknown) (no date) (unknown) [facility]no value) [facility] Result panel 973 (unknown) (no date) (unknown) [facility] (no value) [facility] Result panel 974 (unknown) (no date) (unknown) [facility]no value) [facility] Result panel 975 (unknown) (no date) (unknown) [facility] (no value) [facility] Result panel 976 (unknown) (no date) (unknown) [facility] (no value) [facility] Result panel 977 (unknown) (no date) (unknown) [facility]no value) [facility] Result panel 978 (unknown) (no date) (unknown) [facility]no value[facility] Result panel 979 (unknown) (no date) (unknown) [facility] (no value) [facility] Result panel 980 (unknown) (no date) (unknown) [facility] (no value) [facility] Result panel 981 (unknown) (no date) (unknown) [facility] (no value) [facility] Result panel 982 (unknown) (no date) (unknown) [facility]no value) [facility] Result panel 983 (unknown) (no date) (unknown) [facility]no value) [facility] Result panel 984 (unknown) (no date) (unknown) [facility] (no value) [facility] Result panel 985 (unknown) (no date) (unknown) [facility]no value) [facility] Result panel 986 (unknown) (no date) (unknown) [facility]no value) [facility] Result panel 987 (unknown) (no date) (unknown) [facility]no value[facility] Result panel 988 (unknown) (no date) (unknown) [facility]no value) [facility] Result panel 989 (unknown) (no date) (unknown) [facility]no value[facility] Result panel 990 (unknown) (no date) (unknown) [facility] (no value) [facility] Result panel 991 (unknown) (no date) (unknown) [facility]no value) [facility] Result panel 992 (unknown) (no date) (unknown) [facility] (no value) [facility] Result panel 993 (unknown) (no date) (unknown) [facility] (no value) [facility] Result panel 994 (unknown) (no date) (unknown) [facility] (no value) [facility] Result panel 995 (unknown) (no date) (unknown) [facility] (no value) [facility] Result panel 996 (unknown) (no date) (unknown) [facility] (no value) [facility] Result panel 997 (unknown) (no date) (unknown) [facility] (no value) [facility] Result panel 998 (unknown) (no date) (unknown) [facility] (no value) [facility] Result panel 999 (unknown) (no date) (unknown) [facility] (no value) [facility] Result panel 1000 (unknown) (no date) (unknown) [facility] (no value) [facility] Result panel 1001 (unknown) (no date) (unknown) [facility] (no value) [facility] Result panel 1002 (unknown) (no date) (unknown) [facility] (no value) [facility] Result panel 1003 (unknown) (no date) (unknown) [facility] (no value) [facility] Result panel 1004 (unknown) (no date) (unknown) [facility] (no value) [facility] Result panel 1005 (unknown) (no date) (unknown) [facility] (no value) [facility] Result panel 1006 (unknown) (no date) (unknown) [facility] (no value) [facility] Result panel 1007 (unknown) (no date) (unknown) [facility] (no value) [facility] Result panel 1008 (unknown) (no date) (unknown) [facility] (no value) [facility] Result panel 1009 (unknown) (no date) (unknown) [facility] (no value) [facility] Result panel 1010 (unknown) (no date) (unknown) [facility] (no value) [facility] Result panel 1011 (unknown) (no date) (unknown) [facility] (no value) [facility] Result panel 1012 (unknown) (no date) (unknown) [facility] (no value) [facility] Result panel 1013 (unknown) (no date) (unknown) [facility] (no value) [facility] Result panel 1014 (unknown) (no date) (unknown) [facility] (no value) [facility] Result panel 1015 (unknown) (no date) (unknown) [facility] (no value) [facility] Result panel 1016 (unknown) (no date) (unknown) [facility] (no value) [facility] Result panel 1017 (unknown) (no date) (unknown) [facility] (no value) [facility] Result panel 1018 (unknown) (no date) (unknown) [facility] (no value) [facility] Result panel 1019 (unknown) (no date) (unknown) [facility] (no value) [facility] Result panel 1020 (unknown) (no date) (unknown) [facility] (no value) [facility] Result panel 1021 (unknown) (no date) (unknown) [facility] (no value) [facility] Result panel 1022 (unknown) (no date) (unknown) [facility] (no value) [facility] Result panel 1023 (unknown) (no date) (unknown) [facility] (no value) [facility] Result panel 1024 (unknown) (no date) (unknown) [facility] (no value) [facility] Result panel 1025 (unknown) (no date) (unknown) [facility] (no value) [facility] Result panel 1026 (unknown) (no date) (unknown) [facility] (no value) [facility] Result panel 1027 (unknown) (no date) (unknown) [facility] (no value) [facility] Result panel 1028 (unknown) (no date) (unknown) [facility] (no value) [facility] Result panel 1029 (unknown) (no date) (unknown) [facility] (no value) [facility] Result panel 1030 (unknown) (no date) (unknown) [facility] (no value) [facility] Result panel 1031 (unknown) (no date) (unknown) [facility] (no value) [facility] Result panel 1032 (unknown) (no date) (unknown) [facility] (no value) [facility] Result panel 1033 (unknown) (no date) (unknown) [facility] (no value) [facility] Result panel 1034 (unknown) (no date) (unknown) [facility] (no value) [facility] Result panel 1035 (unknown) (no date) (unknown) [facility] (no value) [facility] Result panel 1036 (unknown) (no date) (unknown) [facility] (no value) [facility] Result panel 1037 (unknown) (no date) (unknown) [facility] (no value) [facility] Result panel 1038 (unknown) (no date) (unknown) [facility] (no value) [facility] Result panel 1039 (unknown) (no date) (unknown) [facility] (no value) [facility] Result panel 1040 (unknown) (no date) (unknown) [facility] (no value) [facility] Result panel 1041 (unknown) (no date) (unknown) [facility] (no value) [facility] Result panel 1042 (unknown) (no date) (unknown) [facility] (no value) [facility] Result panel 1043 (unknown) (no date) (unknown) [facility] (no value) [facility] Result panel 1044 (unknown) (no date) (unknown) [facility] (no value) [facility] Result panel 1045 (unknown) (no date) (unknown) [facility] (no value) [facility] Result panel 1046 (unknown) (no date) (unknown) [facility] (no value) [facility] Result panel 1047 (unknown) (no date) (unknown) [facility] (no value) [facility] Result panel 1048 (unknown) (no date) (unknown) [facility] (no value) [facility] Result panel 1049 (unknown) (no date) (unknown) [facility] (no value) [facility] Result panel 1050 (unknown) (no date) (unknown) [facility] (no value) [facility] Result panel 1051 (unknown) (no date) (unknown) [facility] (no value) [facility] Result panel 1052 (unknown) (no date) (unknown) [facility] (no value) [facility] Result panel 1053 (unknown) (no date) (unknown) [facility] (no value) [facility] Result panel 1054 (unknown) (no date) (unknown) [facility] (no value) [facility] Result panel 1055 (unknown) (no date) (unknown) [facility] (no value) [facility] Result panel 1056 (unknown) (no date) (unknown) [facility] (no value) [facility] Result panel 1057 (unknown) (no date) (unknown) [facility] (no value) [facility] Result panel 1058 (unknown) (no date) (unknown) [facility] (no value) [facility] Result panel 1059 (unknown) (no date) (unknown) [facility] (no value) [facility] Result panel 1060 (unknown) (no date) (unknown) [facility] (no value) [facility] Result panel 1061 (unknown) (no date) (unknown) [facility] (no value) [facility] Result panel 1062 (unknown) (no date) (unknown) [facility] (no value) [facility] Result panel 1063 (unknown) (no date) (unknown) [facility] (no value) [facility] Result panel 1064 (unknown) (no date) (unknown) [facility] (no value) [facility] Result panel 1065 (unknown) (no date) (unknown) [facility] (no value) [facility] Result panel 1066 (unknown) (no date) (unknown) [facility] (no value) [facility] Result panel 1067 (unknown) (no date) (unknown) [facility] (no value) [facility] Result panel 1068 (unknown) (no date) (unknown) [facility] (no value) [facility] Result panel 1069 (unknown) (no date) (unknown) [facility] (no value) [facility] Result panel 1070 (unknown) (no date) (unknown) [facility] (no value) [facility] Result panel 1071 (unknown) (no date) (unknown) [facility] (no value) [facility] Result panel 1072 (unknown) (no date) (unknown) [facility] (no value) [facility] Result panel 1073 (unknown) (no date) (unknown) [facility] (no value) [facility] Result panel 1074 (unknown) (no date) (unknown) [facility] (no value) [facility] Result panel 1075 (unknown) (no date) (unknown) [facility] (no value) [facility] Result panel 1076 (unknown) (no date) (unknown) [facility] (no value) [facility] Result panel 1077 (unknown) (no date) (unknown) [facility] (no value) [facility] Result panel 1078 (unknown) (no date) (unknown) [facility] (no value) [facility] Result panel 1079 (unknown) (no date) (unknown) [facility] (no value) [facility] Result panel 1080 (unknown) (no date) (unknown) [facility] (no value) [facility] Result panel 1081 (unknown) (no date) (unknown) [facility] (no value) [facility] Result panel 1082 (unknown) (no date) (unknown) [facility] (no value) [facility] Result panel 1083 (unknown) (no date) (unknown) [facility] (no value) [facility] Result panel 1084 (unknown) (no date) (unknown) [facility] (no value) [facility] Result panel 1085 (unknown) (no date) (unknown) [facility] (no value) [facility] Result panel 1086 (unknown) (no date) (unknown) [facility] (no value) [facility] Result panel 1087 (unknown) (no date) (unknown) [facility] (no value) [facility] Result panel 1088 (unknown) (no date) (unknown) [facility] (no value) [facility] Result panel 1089 (unknown) (no date) (unknown) [facility] (no value) [facility] Result panel 1090 (unknown) (no date) (unknown) [facility] (no value) [facility] Result panel 1091 (unknown) (no date) (unknown) [facility] (no value) [facility] Result panel 1092 (unknown) (no date) (unknown) [facility] (no value) [facility] Result panel 1093 (unknown) (no date) (unknown) [facility] (no value) [facility] Result panel 1094 (unknown) (no date) (unknown) [facility] (no value) [facility] Result panel 1095 (unknown) (no date) (unknown) [facility] (no value) [facility] Result panel 1096 (unknown) (no date) (unknown) [facility] (no value) [facility] Result panel 1097 (unknown) (no date) (unknown) [facility] (no value) [facility] Result panel 1098 (unknown) (no date) (unknown) [facility] (no value) [facility] Result panel 1099 (unknown) (no date) (unknown) [facility] (no value) [facility] Result panel 1100 (unknown) (no date) (unknown) [facility] (no value) [facility] Result panel 1101 (unknown) (no date) (unknown) [facility] (no value) [facility] Result panel 1102 (unknown) (no date) (unknown) [facility] (no value) [facility] Result panel 1103 (unknown) (no date) (unknown) [facility] (no value) [facility] Result panel 1104 (unknown) (no date) (unknown) [facility] (no value) [facility] Result panel 1105 (unknown) (no date) (unknown) [facility] (no value) [facility] Result panel 1106 (unknown) (no date) (unknown) [facility] (no value) [facility] Result panel 1107 (unknown) (no date) (unknown) [facility] (no value) [facility] Result panel 1108 (unknown) (no date) (unknown) [facility] (no value) [facility] Result panel 1109 (unknown) (no date) (unknown) [facility] (no value) [facility] Result panel 1110 (unknown) (no date) (unknown) [facility] (no value) [facility] Result panel 1111 (unknown) (no date) (unknown) [facility] (no value) [facility] Result panel 1112 (unknown) (no date) (unknown) [facility] (no value) [facility] Result panel 1113 (unknown) (no date) (unknown) [facility] (no value) [facility] Result panel 1114 (unknown) (no date) (unknown) [facility] (no value) [facility] Result panel 1115 (unknown) (no date) (unknown) [facility] (no value) [facility] Result panel 1116 (unknown) (no date) (unknown) [facility] (no value[facility] Result panel 1117 (unknown) (no date) (unknown) [facility] ([facility] value[facility] Result panel 1118 (unknown) (no date) (unknown) [facility] (no value) [facility] Result panel 1119 (unknown) (no date) (unknown) [facility] (no value) [facility] Result panel 1120 (unknown) (no date) (unknown) [facility] (no value) [facility] Result panel 1121 (unknown) (no date) (unknown) [facility] (no value) [facility] Result panel 1122 (unknown) (no date) (unknown) [facility] (no value) [facility] Result panel 1123 (unknown) (no date) (unknown) [facility] (no value) [facility] Result panel 1124 (unknown) (no date) (unknown) [facility] (no value) [facility] Result panel 1125 (unknown) (no date) (unknown) [facility] (no value) [facility] Result panel 1126 (unknown) (no date) (unknown) [facility] (no value) [facility] Result panel 1127 (unknown) (no date) (unknown) [facility] (no value) [facility] Result panel 1128 (unknown) (no date) (unknown) [facility]no value) [facility] Result panel 1129 (unknown) (no date) (unknown) [facility] (no value) [facility] Result panel 1130 (unknown) (no date) (unknown) [facility] (no value) [facility] Result panel 1131 (unknown) (no date) (unknown) [facility] (no value) [facility] Result panel 1132 (unknown) (no date) (unknown) [facility] (no value) [facility] Result panel 1133 (unknown) (no date) (unknown) [facility]no value) [facility] Result panel 1134 (unknown) (no date) (unknown) [facility] (no value) [facility] Result panel 1135 (unknown) (no date) (unknown) [facility] (no value) [facility] Result panel 1136 (unknown) (no date) (unknown) [facility] (no value) [facility] Result panel 1137 (unknown) (no date) (unknown) [facility] (no value) [facility] Result panel 1138 (unknown) (no date) (unknown) [facility] (no value) [facility] Result panel 1139 (unknown) (no date) (unknown) [facility] (no value) [facility] Result panel 1140 (unknown) (no date) (unknown) [facility] (no value) [facility] Result panel 1141 (unknown) (no date) (unknown) [facility] (no value) [facility] Result panel 1142 (unknown) (no date) (unknown) [facility] (no value) [facility] Result panel 1143 (unknown) (no date) (unknown) [facility] (no value) [facility] Result panel 1144 (unknown) (no date) (unknown) [facility] (no value) [facility] Result panel 1145 (unknown) (no date) (unknown) [facility] (no value) [facility] Result panel 1146 (unknown) (no date) (unknown) [facility] (no value) [facility] Result panel 1147 (unknown) (no date) (unknown) [facility] (no value) [facility] Result panel 1148 (unknown) (no date) (unknown) [facility] (no value) [facility] Result panel 1149 (unknown) (no date) (unknown) [facility] (no value) [facility] Result panel 1150 (unknown) (no date) (unknown) [facility] (no value) [facility] Result panel 1151 (unknown) (no date) (unknown) [facility] (no value) [facility] Result panel 1152 (unknown) (no date) (unknown) [facility] (no value) [facility] Result panel 1153 (unknown) (no date) (unknown) [facility] (no value) [facility] Result panel 1154 (unknown) (no date) (unknown) [facility] (no value) [facility] Result panel 1155 (unknown) (no date) (unknown) [facility] (no value) [facility] Result panel 1156 (unknown) (no date) (unknown) [facility] (no value) [facility] Result panel 1157 (unknown) (no date) (unknown) [facility] (no value) [facility] Result panel 1158 (unknown) (no date) (unknown) [facility] (no value) [facility] Result panel 1159 (unknown) (no date) (unknown) [facility] (no value) [facility] Result panel 1160 (unknown) (no date) (unknown) [facility] (no value) [facility] Result panel 1161 (unknown) (no date) (unknown) [facility] (no value) [facility] Result panel 1162 (unknown) (no date) (unknown) [facility] (no value) [facility] Result panel 1163 (unknown) (no date) (unknown) [facility] (no value) [facility] Result panel 1164 (unknown) (no date) (unknown) [facility] (no value) [facility] Result panel 1165 (unknown) (no date) (unknown) [facility] (no value) [facility] Result panel 1166 (unknown) (no date) (unknown) [facility] (no value) [facility] Result panel 1167 (unknown) (no date) (unknown) [facility] (no value) [facility] Result panel 1168 (unknown) (no date) (unknown) [facility] (no value) [facility] Result panel 1169 (unknown) (no date) (unknown) [facility] (no value) [facility] Result panel 1170 (unknown) (no date) (unknown) [facility] (no value) [facility] Result panel 1171 (unknown) (no date) (unknown) [facility] (no value) [facility] Result panel 1172 (unknown) (no date) (unknown) [facility] (no value) [facility] Result panel 1173 (unknown) (no date) (unknown) [facility] (no value) [facility] Result panel 1174 (unknown) (no date) (unknown) [facility] (no value) [facility] Result panel 1175 (unknown) (no date) (unknown) [facility] (no value) [facility] Result panel 1176 (unknown) (no date) (unknown) [facility] (no value) [facility] Result panel 1177 (unknown) (no date) (unknown) [facility] (no value) [facility] Result panel 1178 (unknown) (no date) (unknown) [facility] (no value) [facility] Result panel 1179 (unknown) (no date) (unknown) [facility] (no value) [facility] Result panel 1180 (unknown) (no date) (unknown) [facility] (no value) [facility] Result panel 1181 (unknown) (no date) (unknown) [facility] (no value) [facility] Result panel 1182 (unknown) (no date) (unknown) [facility] (no value) [facility] Result panel 1183 (unknown) (no date) (unknown) [facility] (no value) [facility] Result panel 1184 (unknown) (no date) (unknown) [facility] (no value) [facility] Result panel 1185 (unknown) (no date) (unknown) [facility] (no value) [facility] Result panel 1186 (unknown) (no date) (unknown) [facility] (no value) [facility] Result panel 1187 (unknown) (no date) (unknown) [facility] (no value) [facility] Result panel 1188 (unknown) (no date) (unknown) [facility] (no value) [facility] Result panel 1189 (unknown) (no date) (unknown) [facility] (no value) [facility] Result panel 1190 (unknown) (no date) (unknown) [facility] (no value) [facility] Result panel 1191 (unknown) (no date) (unknown) [facility] (no value) [facility] Result panel 1192 (unknown) (no date) (unknown) [facility] (no value) [facility] Result panel 1193 (unknown) (no date) (unknown) [facility] (no value) [facility] Result panel 1194 (unknown) (no date) (unknown) [facility] (no value) [facility] Result panel 1195 (unknown) (no date) (unknown) [facility] (no value) [facility] Result panel 1196 (unknown) (no date) (unknown) [facility] (no value) [facility] Result panel 1197 (unknown) (no date) (unknown) [facility] (no value) [facility] Result panel 1198 (unknown) (no date) (unknown) [facility] (no value) [facility] Result panel 1199 (unknown) (no date) (unknown) [facility] (no value) [facility] Result panel 1200 (unknown) (no date) (unknown) [facility] (no value) [facility] Result panel 1201 (unknown) (no date) (unknown) [facility] (no value) [facility] Result panel 1202 (unknown) (no date) (unknown) [facility] (no value) [facility] Result panel 1203 (unknown) (no date) (unknown) [facility] (no value) [facility] Result panel 1204 (unknown) (no date) (unknown) [facility] (no value) [facility] Result panel 1205 (unknown) (no date) (unknown) [facility] (no value) [facility] Result panel 1206 (unknown) (no date) (unknown) [facility] (no value) [facility] Result panel 1207 (unknown) (no date) (unknown) [facility] (no value) [facility] Result panel 1208 (unknown) (no date) (unknown) [facility] (no value) [facility] Result panel 1209 (unknown) (no date) (unknown) [facility] (no value) [facility] Result panel 1210 (unknown) (no date) (unknown) [facility] (no value) [facility] Result panel 1211 (unknown) (no date) (unknown) [facility] (no value) [facility] Result panel 1212 (unknown) (no date) (unknown) [facility] (no value) [facility] Result panel 1213 (unknown) (no date) (unknown) [facility] (no value) [facility] Result panel 1214 (unknown) (no date) (unknown) [facility] (no value) [facility] Result panel 1215 (unknown) (no date) (unknown) [facility] (no value) [facility] Result panel 1216 (unknown) (no date) (unknown) [facility] (no value) [facility] Result panel 1217 (unknown) (no date) (unknown) [facility] (no value) [facility] Result panel 1218 (unknown) (no date) (unknown) [facility] (no value) [facility] Result panel 1219 (unknown) (no date) (unknown) [facility] (no value) [facility] Result panel 1220 (unknown) (no date) (unknown) [facility] (no value) [facility] Result panel 1221 (unknown) (no date) (unknown) [facility] (no value) [facility] Result panel 1222 (unknown) (no date) (unknown) [facility] (no value) [facility] Result panel 1223 (unknown) (no date) (unknown) [facility] (no value) [facility] Result panel 1224 (unknown) (no date) (unknown) [facility] (no value) [facility] Result panel 1225 (unknown) (no date) (unknown) [facility] (no value) [facility] Result panel 1226 (unknown) (no date) (unknown) [facility] (no value) [facility] Result panel 1227 (unknown) (no date) (unknown) [facility] (no value) [facility] Result panel 1228 (unknown) (no date) (unknown) [facility] (no value) [facility] Result panel 1229 (unknown) (no date) (unknown) [facility] (no value) [facility] Result panel 1230 (unknown) (no date) (unknown) [facility] (no value) [facility] Result panel 1231 (unknown) (no date) (unknown) [facility] (no value) [facility] Result panel 1232 (unknown) (no date) (unknown) [facility] (no value) [facility] Result panel 1233 (unknown) (no date) (unknown) [facility] (no value) [facility] Result panel 1234 (unknown) (no date) (unknown) [facility] (no value) [facility] Result panel 1235 (unknown) (no date) (unknown) [facility] (no value) [facility] Result panel 1236 (unknown) (no date) (unknown) [facility] (no value) [facility] Result panel 1237 (unknown) (no date) (unknown) [facility] (no value) [facility] Result panel 1238 (unknown) (no date) (unknown) [facility] (no value) [facility] Result panel 1239 (unknown) (no date) (unknown) [facility] (no value) [facility] Result panel 1240 (unknown) (no date) (unknown) [facility] (no value) [facility] Result panel 1241 (unknown) (no date) (unknown) [facility] (no value) [facility] Result panel 1242 (unknown) (no date) (unknown) [facility] (no value) [facility] Result panel 1243 (unknown) (no date) (unknown) [facility] (no value) [facility] Result panel 1244 (unknown) (no date) (unknown) [facility] (no value) [facility] Result panel 1245 (unknown) (no date) (unknown) [facility] (no value) [facility] Result panel 1246 (unknown) (no date) (unknown) [facility] (no value) [facility] Result panel 1247 (unknown) (no date) (unknown) [facility] (no value) [facility] Result panel 1248 (unknown) (no date) (unknown) [facility] (no value) [facility] Result panel 1249 (unknown) (no date) (unknown) [facility] (no value) [facility] Result panel 1250 (unknown) (no date) (unknown) [facility] (no value) [facility] Result panel 1251 (unknown) (no date) (unknown) [facility] (no value) [facility] Result panel 1252 (unknown) (no date) (unknown) [facility] (no value) [facility] Result panel 1253 (unknown) (no date) (unknown) [facility] (no value) [facility] Result panel 1254 (unknown) (no date) (unknown) [facility] (no value) [facility] Result panel 1255 (unknown) (no date) (unknown) [facility] (no value) [facility] Result panel 1256 (unknown) (no date) (unknown) [facility] (no value) [facility] Result panel 1257 (unknown) (no date) (unknown) [facility] (no value) [facility] Result panel 1258 (unknown) (no date) (unknown) [facility] (no value) [facility] Result panel 1259 (unknown) (no date) (unknown) [facility] (no value) [facility] Result panel 1260 (unknown) (no date) (unknown) [facility] (no value) [facility] Result panel 1261 (unknown) (no date) (unknown) [facility] (no value) [facility] Result panel 1262 (unknown) (no date) (unknown) [facility] (no value) [facility] Result panel 1263 (unknown) (no date) (unknown) [facility] (no value) [facility] Result panel 1264 (unknown) (no date) (unknown) [facility] (no value) [facility] Result panel 1265 (unknown) (no date) (unknown) [facility] (no value) [facility] Result panel 1266 (unknown) (no date) (unknown) [facility] (no value) [facility] Result panel 1267 (unknown) (no date) (unknown) [facility] (no value) [facility] Result panel 1268 (unknown) (no date) (unknown) [facility] (no value) [facility] Result panel 1269 (unknown) (no date) (unknown) [facility] (no value) [facility] Result panel 1270 (unknown) (no date) (unknown) [facility] (no value) [facility] Result panel 1271 (unknown) (no date) (unknown) [facility] (no value) [facility] Result panel 1272 (unknown) (no date) (unknown) [facility] (no value) [facility] Result panel 1273 (unknown) (no date) (unknown) [facility] (no value) [facility] Result panel 1274 (unknown) (no date) (unknown) [facility] (no value) [facility] Result panel 1275 (unknown) (no date) (unknown) [facility] (no value) [facility] Result panel 1276 (unknown) (no date) (unknown) [facility] (no value) [facility] Result panel 1277 (unknown) (no date) (unknown) [facility] (no value) [facility] Result panel 1278 (unknown) (no date) (unknown) [facility] (no value) [facility] Result panel 1279 (unknown) (no date) (unknown) [facility] (no value) [facility] Result panel 1280 (unknown) (no date) (unknown) [facility] (no value) [facility] Result panel 1281 (unknown) (no date) (unknown) [facility] (no value) [facility] Result panel 1282 (unknown) (no date) (unknown) [facility] (no value) [facility] Result panel 1283 (unknown) (no date) (unknown) [facility] (no value) [facility] Result panel 1284 (unknown) (no date) (unknown) [facility] (no value) [facility] Result panel 1285 (unknown) (no date) (unknown) [facility] (no value[facility] Result panel 1286 (unknown) (no date) (unknown) [facility] ([facility] value[facility] Result panel 1287 (unknown) (no date) (unknown) [facility] (no value) [facility] Result panel 1288 (unknown) (no date) (unknown) [facility] (no value) [facility] Result panel 1289 (unknown) (no date) (unknown) [facility] (no value) [facility] Result panel 1290 (unknown) (no date) (unknown) [facility] (no value) [facility] Result panel 1291 (unknown) (no date) (unknown) [facility] (no value) [facility] Result panel 1292 (unknown) (no date) (unknown) [facility] (no value) [facility] Result panel 1293 (unknown) (no date) (unknown) [facility] (no value) [facility] Result panel 1294 (unknown) (no date) (unknown) [facility] (no value) [facility] Result panel 1295 (unknown) (no date) (unknown) [facility] (no value) [facility] Result panel 1296 (unknown) (no date) (unknown) [facility] (no value) [facility] Result panel 1297 (unknown) (no date) (unknown) [facility] (no value) [facility] Result panel 1298 (unknown) (no date) (unknown) [facility] (no value) [facility] Result panel 1299 (unknown) (no date) (unknown) [facility] (no value) [facility] Result panel 1300 (unknown) (no date) (unknown) [facility] (no value) [facility] Result panel 1301 (unknown) (no date) (unknown) [facility] (no value) [facility] Result panel 1302 (unknown) (no date) (unknown) [facility] (no value) [facility] Result panel 1303 (unknown) (no date) (unknown) [facility] (no value) [facility] Result panel 1304 (unknown) (no date) (unknown) [facility] (no value) [facility] Result panel 1305 (unknown) (no date) (unknown) [facility] (no value) [facility] Result panel 1306 (unknown) (no date) (unknown) [facility] (no value) [facility] Result panel 1307 (unknown) (no date) (unknown) [facility] (no value) [facility] Result panel 1308 (unknown) (no date) (unknown) [facility] (no value) [facility] Result panel 1309 (unknown) (no date) (unknown) [facility] (no value) [facility] Result panel 1310 (unknown) (no date) (unknown) [facility] (no value) [facility] Result panel 1311 (unknown) (no date) (unknown) [facility] (no value) [facility] Result panel 1312 (unknown) (no date) (unknown) [facility] (no value) [facility] Result panel 1313 (unknown) (no date) (unknown) [facility] (no value) [facility] Result panel 1314 (unknown) (no date) (unknown) [facility] (no value) [facility] Result panel 1315 (unknown) (no date) (unknown) [facility] (no value) [facility] Result panel 1316 (unknown) (no date) (unknown) [facility] (no value) [facility] Result panel 1317 (unknown) (no date) (unknown) [facility] (no value) [facility] Result panel 1318 (unknown) (no date) (unknown) [facility] (no value) [facility] Result panel 1319 (unknown) (no date) (unknown) [facility] (no value) [facility] Result panel 1320 (unknown) (no date) (unknown) [facility] (no value) [facility] Result panel 1321 (unknown) (no date) (unknown) [facility] (no value) [facility] Result panel 1322 (unknown) (no date) (unknown) [facility] (no value) [facility] Result panel 1323 (unknown) (no date) (unknown) [facility] (no value) [facility] Result panel 1324 (unknown) (no date) (unknown) [facility] (no value) [facility] Result panel 1325 (unknown) (no date) (unknown) [facility] (no value) [facility] Result panel 1326 (unknown) (no date) (unknown) [facility] (no value) [facility] Result panel 1327 (unknown) (no date) (unknown) [facility] (no value) [facility] Result panel 1328 (unknown) (no date) (unknown) [facility] (no value) [facility] Result panel 1329 (unknown) (no date) (unknown) [facility] (no value) [facility] Result panel 1330 (unknown) (no date) (unknown) [facility] (no value) [facility] Result panel 1331 (unknown) (no date) (unknown) [facility] (no value) [facility] Result panel 1332 (unknown) (no date) (unknown) [facility] (no value) [facility] Result panel 1333 (unknown) (no date) (unknown) [facility] (no value) [facility] Result panel 1334 (unknown) (no date) (unknown) [facility] (no value) [facility] Result panel 1335 (unknown) (no date) (unknown) [facility] (no value) [facility] Result panel 1336 (unknown) (no date) (unknown) [facility] (no value) [facility] Result panel 1337 (unknown) (no date) (unknown) [facility] (no value) [facility] Result panel 1338 (unknown) (no date) (unknown) [facility] (no value) [facility] Result panel 1339 (unknown) (no date) (unknown) [facility] (no value) [facility] Result panel 1340 (unknown) (no date) (unknown) [facility] (no value) [facility] Result panel 1341 (unknown) (no date) (unknown) [facility] (no value) [facility] Result panel 1342 (unknown) (no date) (unknown) [facility] (no value) [facility] Result panel 1343 (unknown) (no date) (unknown) [facility] (no value) [facility] Result panel 1344 (unknown) (no date) (unknown) [facility] (no value) [facility] Result panel 1345 (unknown) (no date) (unknown) [facility] (no value) [facility] Result panel 1346 (unknown) (no date) (unknown) [facility] (no value) [facility] Result panel 1347 (unknown) (no date) (unknown) [facility] (no value) [facility] Result panel 1348 (unknown) (no date) (unknown) [facility] (no value) [facility] Result panel 1349 (unknown) (no date) (unknown) [facility] (no value) [facility] Result panel 1350 (unknown) (no date) (unknown) [facility] (no value) [facility] Result panel 1351 (unknown) (no date) (unknown) [facility] (no value) [facility] Result panel 1352 (unknown) (no date) (unknown) [facility] (no value) [facility] Result panel 1353 (unknown) (no date) (unknown) [facility] (no value) [facility] Result panel 1354 (unknown) (no date) (unknown) [facility] (no value) [facility] Result panel 1355 (unknown) (no date) (unknown) [facility] (no value) [facility] Result panel 1356 (unknown) (no date) (unknown) [facility] (no value) [facility] Result panel 1357 (unknown) (no date) (unknown) [facility] (no value) [facility] Result panel 1358 (unknown) (no date) (unknown) [facility] (no value) [facility] Result panel 1359 (unknown) (no date) (unknown) [facility] (no value) [facility] Result panel 1360 (unknown) (no date) (unknown) [facility] (no value) [facility] Result panel 1361 (unknown) (no date) (unknown) [facility] (no value) [facility] Result panel 1362 (unknown) (no date) (unknown) [facility] (no value) [facility] Result panel 1363 (unknown) (no date) (unknown) [facility] (no value) [facility] Result panel 1364 (unknown) (no date) (unknown) [facility] (no value) [facility] Result panel 1365 (unknown) (no date) (unknown) [facility] (no value) [facility] Result panel 1366 (unknown) (no date) (unknown) [facility] (no value) [facility] Result panel 1367 (unknown) (no date) (unknown) [facility] (no value) [facility] Result panel 1368 (unknown) (no date) (unknown) [facility] (no value) [facility] Result panel 1369 (unknown) (no date) (unknown) [facility] (no value) [facility] Result panel 1370 (unknown) (no date) (unknown) [facility] (no value) [facility] Result panel 1371 (unknown) (no date) (unknown) [facility] (no value) [facility] Result panel 1372 (unknown) (no date) (unknown) [facility] (no value) [facility] Result panel 1373 (unknown) (no date) (unknown) [facility] (no value) [facility] Result panel 1374 (unknown) (no date) (unknown) [facility] (no value) [facility] Result panel 1375 (unknown) (no date) (unknown) [facility] (no value) [facility] Result panel 1376 (unknown) (no date) (unknown) [facility] (no value) [facility] Result panel 1377 (unknown) (no date) (unknown) [facility] (no value) [facility] Result panel 1378 (unknown) (no date) (unknown) [facility] (no value) [facility] Result panel 1379 (unknown) (no date) (unknown) [facility] (no value) [facility] Result panel 1380 (unknown) (no date) (unknown) [facility] (no value) [facility] Result panel 1381 (unknown) (no date) (unknown) [facility] (no value) [facility] Result panel 1382 (unknown) (no date) (unknown) [facility] (no value) [facility] Result panel 1383 (unknown) (no date) (unknown) [facility] (no value) [facility] Result panel 1384 (unknown) (no date) (unknown) [facility] (no value) [facility] Result panel 1385 (unknown) (no date) (unknown) [facility] (no value) [facility] Result panel 1386 (unknown) (no date) (unknown) [facility] (no value) [facility] Result panel 1387 (unknown) (no date) (unknown) [facility] (no value) [facility] Result panel 1388 (unknown) (no date) (unknown) [facility] (no value) [facility] Result panel 1389 (unknown) (no date) (unknown) [facility] (no value) [facility] Result panel 1390 (unknown) (no date) (unknown) [facility] (no value) [facility] Result panel 1391 (unknown) (no date) (unknown) [facility] (no value) [facility] Result panel 1392 (unknown) (no date) (unknown) [facility] (no value) [facility] Result panel 1393 (unknown) (no date) (unknown) [facility] (no value) [facility] Result panel 1394 (unknown) (no date) (unknown) [facility] (no value) [facility] Result panel 1395 (unknown) (no date) (unknown) [facility] (no value) [facility] Result panel 1396 (unknown) (no date) (unknown) [facility] (no value) [facility] Result panel 1397 (unknown) (no date) (unknown) [facility] (no value) [facility] Result panel 1398 (unknown) (no date) (unknown) [facility] (no value) [facility] Result panel 1399 (unknown) (no date) (unknown) [facility] (no value) [facility] Result panel 1400 (unknown) (no date) (unknown) [facility] (no value) [facility] Result panel 1401 (unknown) (no date) (unknown) [facility] (no value) [facility] Result panel 1402 (unknown) (no date) (unknown) [facility] (no value) [facility] Result panel 1403 (unknown) (no date) (unknown) [facility] (no value) [facility] Result panel 1404 (unknown) (no date) (unknown) [facility] (no value) [facility] Result panel 1405 (unknown) (no date) (unknown) [facility] (no value) [facility] Result panel 1406 (unknown) (no date) (unknown) [facility] (no value) [facility] Result panel 1407 (unknown) (no date) (unknown) [facility] (no value) [facility] Result panel 1408 (unknown) (no date) (unknown) [facility] (no value) [facility] Result panel 1409 (unknown) (no date) (unknown) [facility] (no value) [facility] Result panel 1410 (unknown) (no date) (unknown) [facility] (no value) [facility] Result panel 1411 (unknown) (no date) (unknown) [facility] (no value) [facility] Result panel 1412 (unknown) (no date) (unknown) [facility] (no value) [facility] Result panel 1413 (unknown) (no date) (unknown) [facility] (no value) [facility] Result panel 1414 (unknown) (no date) (unknown) [facility] (no value) [facility] Result panel 1415 (unknown) (no date) (unknown) [facility] (no value) [facility] Result panel 1416 (unknown) (no date) (unknown) [facility] (no value) [facility] Result panel 1417 (unknown) (no date) (unknown) [facility] (no value) [facility] Result panel 1418 (unknown) (no date) (unknown) [facility] (no value) [facility] Result panel 1419 (unknown) (no date) (unknown) [facility] (no value) [facility] Result panel 1420 (unknown) (no date) (unknown) [facility] (no value) [facility] Result panel 1421 (unknown) (no date) (unknown) [facility] (no value) [facility] Result panel 1422 (unknown) (no date) (unknown) [facility] (no value) [facility] Result panel 1423 (unknown) (no date) (unknown) [facility] (no value) [facility] Result panel 1424 (unknown) (no date) (unknown) [facility] (no value) [facility] Result panel 1425 (unknown) (no date) (unknown) [facility] (no value) [facility] Result panel 1426 (unknown) (no date) (unknown) [facility] (no value) [facility] Result panel 1427 (unknown) (no date) (unknown) [facility] (no value) [facility] Result panel 1428 (unknown) (no date) (unknown) [facility] (no value) [facility] Result panel 1429 (unknown) (no date) (unknown) [facility] (no value) [facility] Result panel 1430 (unknown) (no date) (unknown) [facility] (no value) [facility] Result panel 1431 (unknown) (no date) (unknown) [facility] (no value) [facility] Result panel 1432 (unknown) (no date) (unknown) [facility] (no value) [facility] Result panel 1433 (unknown) (no date) (unknown) [facility] (no value) [facility] Result panel 1434 (unknown) (no date) (unknown) [facility] (no value) [facility] Result panel 1435 (unknown) (no date) (unknown) [facility] (no value) [facility] Result panel 1436 (unknown) (no date) (unknown) [facility] (no value) [facility] Result panel 1437 (unknown) (no date) (unknown) [facility] (no value) [facility] Result panel 1438 (unknown) (no date) (unknown) [facility] (no value) [facility] Result panel 1439 (unknown) (no date) (unknown) [facility] (no value) [facility] Result panel 1440 (unknown) (no date) (unknown) [facility] (no value) [facility] Result panel 1441 (unknown) (no date) (unknown) [facility] (no value) [facility] Result panel 1442 (unknown) (no date) (unknown) [facility] (no value) [facility] Result panel 1443 (unknown) (no date) (unknown) [facility] (no value) [facility] Result panel 1444 (unknown) (no date) (unknown) [facility] (no value) [facility] Result panel 1445 (unknown) (no date) (unknown) [facility] (no value) [facility] Result panel 1446 (unknown) (no date) (unknown) [facility] (no value) [facility] Result panel 1447 (unknown) (no date) (unknown) [facility] (no value) [facility] Result panel 1448 (unknown) (no date) (unknown) [facility] (no value) [facility] Result panel 1449 (unknown) (no date) (unknown) [facility] (no value) [facility] Result panel 1450 (unknown) (no date) (unknown) [facility] (no value) [facility] Result panel 1451 (unknown) (no date) (unknown) [facility] (no value) [facility] Result panel 1452 (unknown) (no date) (unknown) [facility] (no value) [facility] Result panel 1453 (unknown) (no date) (unknown) [facility] (no value) [facility] Result panel 1454 (unknown) (no date) (unknown) [facility] (no value[facility] Result panel 1455 (unknown) (no date) (unknown) [facility] ([facility] value[facility] Result panel 1456 (unknown) (no date) (unknown) [facility] (no value) [facility] Result panel 1457 (unknown) (no date) (unknown) [facility] (no value) [facility] Result panel 1458 (unknown) (no date) (unknown) [facility] (no value) [facility] Result panel 1459 (unknown) (no date) (unknown) [facility] (no value) [facility] Result panel 1460 (unknown) (no date) (unknown) [facility] (no value) [facility] Result panel 1461 (unknown) (no date) (unknown) [facility] (no value) [facility] Result panel 1462 (unknown) (no date) (unknown) [facility] (no value) [facility] Result panel 1463 (unknown) (no date) (unknown) [facility] (no value) [facility] Result panel 1464 (unknown) (no date) (unknown) [facility] (no value) [facility] Result panel 1465 (unknown) (no date) (unknown) [facility] (no value) [facility] Result panel 1466 (unknown) (no date) (unknown) [facility] (no value) [facility] Result panel 1467 (unknown) (no date) (unknown) [facility] (no value) [facility] Result panel 1468 (unknown) (no date) (unknown) [facility] (no value) [facility] Result panel 1469 (unknown) (no date) (unknown) [facility] (no value) [facility] Result panel 1470 (unknown) (no date) (unknown) [facility] (no value) [facility] Result panel 1471 (unknown) (no date) (unknown) [facility] (no value) [facility] Result panel 1472 (unknown) (no date) (unknown) [facility] (no value) [facility] Result panel 1473 (unknown) (no date) (unknown) [facility] (no value) [facility] Result panel 1474 (unknown) (no date) (unknown) [facility] (no value) [facility] Result panel 1475 (unknown) (no date) (unknown) [facility] (no value) [facility] Result panel 1476 (unknown) (no date) (unknown) [facility] (no value) [facility] Result panel 1477 (unknown) (no date) (unknown) [facility] (no value) [facility] Result panel 1478 (unknown) (no date) (unknown) [facility] (no value) [facility] Result panel 1479 (unknown) (no date) (unknown) [facility] (no value) [facility] Result panel 1480 (unknown) (no date) (unknown) [facility] (no value) [facility] Result panel 1481 (unknown) (no date) (unknown) [facility] (no value) [facility] Result panel 1482 (unknown) (no date) (unknown) [facility] (no value) [facility] Result panel 1483 (unknown) (no date) (unknown) [facility] (no value) [facility] Result panel 1484 (unknown) (no date) (unknown) [facility] (no value) [facility] Result panel 1485 (unknown) (no date) (unknown) [facility] (no value) [facility] Result panel 1486 (unknown) (no date) (unknown) [facility] (no value) [facility] Result panel 1487 (unknown) (no date) (unknown) [facility] (no value) [facility] Result panel 1488 (unknown) (no date) (unknown) [facility] (no value) [facility] Result panel 1489 (unknown) (no date) (unknown) [facility] (no value) [facility] Result panel 1490 (unknown) (no date) (unknown) [facility] (no value) [facility] Result panel 1491 (unknown) (no date) (unknown) [facility] (no value) [facility] Result panel 1492 (unknown) (no date) (unknown) [facility] (no value) [facility] Result panel 1493 (unknown) (no date) (unknown) [facility] (no value) [facility] Result panel 1494 (unknown) (no date) (unknown) [facility] (no value) [facility] Result panel 1495 (unknown) (no date) (unknown) [facility] (no value) [facility] Result panel 1496 (unknown) (no date) (unknown) [facility] (no value) [facility] Result panel 1497 (unknown) (no date) (unknown) [facility] (no value) [facility] Result panel 1498 (unknown) (no date) (unknown) [facility] (no value) [facility] Result panel 1499 (unknown) (no date) (unknown) [facility] (no value) [facility] Result panel 1500 (unknown) (no date) (unknown) [facility] (no value) [facility] Result panel 1501 (unknown) (no date) (unknown) [facility] (no value) [facility] Result panel 1502 (unknown) (no date) (unknown) [facility] (no value) [facility] Result panel 1503 (unknown) (no date) (unknown) [facility] (no value) [facility] Result panel 1504 (unknown) (no date) (unknown) [facility] (no value) [facility] Result panel 1505 (unknown) (no date) (unknown) [facility] (no value) [facility] Result panel 1506 (unknown) (no date) (unknown) [facility] (no value) [facility] Result panel 1507 (unknown) (no date) (unknown) [facility] (no value) [facility] Result panel 1508 (unknown) (no date) (unknown) [facility] (no value) [facility] Result panel 1509 (unknown) (no date) (unknown) [facility] (no value) [facility] Result panel 1510 (unknown) (no date) (unknown) [facility] (no value) [facility] Result panel 1511 (unknown) (no date) (unknown) [facility] (no value) [facility] Result panel 1512 (unknown) (no date) (unknown) [facility] (no value) [facility] Result panel 1513 (unknown) (no date) (unknown) [facility] (no value) [facility] Result panel 1514 (unknown) (no date) (unknown) [facility] (no value) [facility] Result panel 1515 (unknown) (no date) (unknown) [facility] (no value) [facility] Result panel 1516 (unknown) (no date) (unknown) [facility] (no value) [facility] Result panel 1517 (unknown) (no date) (unknown) [facility] (no value) [facility] Result panel 1518 (unknown) (no date) (unknown) [facility] (no value) [facility] Result panel 1519 (unknown) (no date) (unknown) [facility] (no value) [facility] Result panel 1520 (unknown) (no date) (unknown) [facility] (no value) [facility] Result panel 1521 (unknown) (no date) (unknown) [facility] (no value) [facility] Result panel 1522 (unknown) (no date) (unknown) [facility] (no value) [facility] Result panel 1523 (unknown) (no date) (unknown) [facility] (no value) [facility] Result panel 1524 (unknown) (no date) (unknown) [facility] (no value) [facility] Result panel 1525 (unknown) (no date) (unknown) [facility] (no value) [facility] Result panel 1526 (unknown) (no date) (unknown) [facility] (no value) [facility] Result panel 1527 (unknown) (no date) (unknown) [facility] (no value) [facility] Result panel 1528 (unknown) (no date) (unknown) [facility] (no value) [facility] Result panel 1529 (unknown) (no date) (unknown) [facility] (no value) [facility] Result panel 1530 (unknown) (no date) (unknown) [facility] (no value) [facility] Result panel 1531 (unknown) (no date) (unknown) [facility] (no value) [facility] Result panel 1532 (unknown) (no date) (unknown) [facility] (no value) [facility] Result panel 1533 (unknown) (no date) (unknown) [facility] (no value) [facility] Result panel 1534 (unknown) (no date) (unknown) [facility] (no value) [facility] Result panel 1535 (unknown) (no date) (unknown) [facility] (no value) [facility] Result panel 1536 (unknown) (no date) (unknown) [facility] (no value) [facility] Result panel 1537 (unknown) (no date) (unknown) [facility] (no value) [facility] Result panel 1538 (unknown) (no date) (unknown) [facility] (no value) [facility] Result panel 1539 (unknown) (no date) (unknown) [facility] (no value) [facility] Result panel 1540 (unknown) (no date) (unknown) [facility] (no value) [facility] Result panel 1541 (unknown) (no date) (unknown) [facility] (no value) [facility] Result panel 1542 (unknown) (no date) (unknown) [facility] (no value) [facility] Result panel 1543 (unknown) (no date) (unknown) [facility] (no value) [facility] Result panel 1544 (unknown) (no date) (unknown) [facility] (no value) [facility] Result panel 1545 (unknown) (no date) (unknown) [facility] (no value) [facility] Result panel 1546 (unknown) (no date) (unknown) [facility] (no value) [facility] Result panel 1547 (unknown) (no date) (unknown) [facility] (no value) [facility] Result panel 1548 (unknown) (no date) (unknown) [facility] (no value) [facility] Result panel 1549 (unknown) (no date) (unknown) [facility] (no value) [facility] Result panel 1550 (unknown) (no date) (unknown) [facility] (no value) [facility] Result panel 1551 (unknown) (no date) (unknown) [facility] (no value) [facility] Result panel 1552 (unknown) (no date) (unknown) [facility] (no value) [facility] Result panel 1553 (unknown) (no date) (unknown) [facility] (no value) [facility] Result panel 1554 (unknown) (no date) (unknown) [facility] (no value) [facility] Result panel 1555 (unknown) (no date) (unknown) [facility] (no value) [facility] Result panel 1556 (unknown) (no date) (unknown) [facility] (no value) [facility] Result panel 1557 (unknown) (no date) (unknown) [facility] (no value) [facility] Result panel 1558 (unknown) (no date) (unknown) [facility] (no value) [facility] Result panel 1559 (unknown) (no date) (unknown) [facility] (no value) [facility] Result panel 1560 (unknown) (no date) (unknown) [facility] (no value) [facility] Result panel 1561 (unknown) (no date) (unknown) [facility] (no value) [facility] Result panel 1562 (unknown) (no date) (unknown) [facility] (no value) [facility] Result panel 1563 (unknown) (no date) (unknown) [facility] (no value) [facility] Result panel 1564 (unknown) (no date) (unknown) [facility] (no value) [facility] Result panel 1565 (unknown) (no date) (unknown) [facility] (no value) [facility] Result panel 1566 (unknown) (no date) (unknown) [facility] (no value) [facility] Result panel 1567 (unknown) (no date) (unknown) [facility] (no value) [facility] Result panel 1568 (unknown) (no date) (unknown) [facility] (no value) [facility] Result panel 1569 (unknown) (no date) (unknown) [facility] (no value) [facility] Result panel 1570 (unknown) (no date) (unknown) [facility] (no value) [facility] Result panel 1571 (unknown) (no date) (unknown) [facility] (no value) [facility] Result panel 1572 (unknown) (no date) (unknown) [facility] (no value) [facility] Result panel 1573 (unknown) (no date) (unknown) [facility] (no value) [facility] Result panel 1574 (unknown) (no date) (unknown) [facility] (no value) [facility] Result panel 1575 (unknown) (no date) (unknown) [facility] (no value) [facility] Result panel 1576 (unknown) (no date) (unknown) [facility] (no value) [facility] Result panel 1577 (unknown) (no date) (unknown) [facility] (no value) [facility] Result panel 1578 (unknown) (no date) (unknown) [facility] (no value) [facility] Result panel 1579 (unknown) (no date) (unknown) [facility] (no value) [facility] Result panel 1580 (unknown) (no date) (unknown) [facility] (no value) [facility] Result panel 1581 (unknown) (no date) (unknown) [facility] (no value) [facility] Result panel 1582 (unknown) (no date) (unknown) [facility] (no value) [facility] Result panel 1583 (unknown) (no date) (unknown) [facility] (no value) [facility] Result panel 1584 (unknown) (no date) (unknown) [facility] (no value) [facility] Result panel 1585 (unknown) (no date) (unknown) [facility] (no value) [facility] Result panel 1586 (unknown) (no date) (unknown) [facility] (no value) [facility] Result panel 1587 (unknown) (no date) (unknown) [facility] (no value) [facility] Result panel 1588 (unknown) (no date) (unknown) [facility] (no value) [facility] Result panel 1589 (unknown) (no date) (unknown) [facility] (no value) [facility] Result panel 1590 (unknown) (no date) (unknown) [facility] (no value) [facility] Result panel 1591 (unknown) (no date) (unknown) [facility] (no value) [facility] Result panel 1592 (unknown) (no date) (unknown) [facility] (no value) [facility] Result panel 1593 (unknown) (no date) (unknown) [facility] (no value) [facility] Result panel 1594 (unknown) (no date) (unknown) [facility] (no value) [facility] Result panel 1595 (unknown) (no date) (unknown) [facility] (no value) [facility] Result panel 1596 (unknown) (no date) (unknown) [facility] (no value) [facility] Result panel 1597 (unknown) (no date) (unknown) [facility] (no value) [facility] Result panel 1598 (unknown) (no date) (unknown) [facility] (no value) [facility] Result panel 1599 (unknown) (no date) (unknown) [facility] (no value) [facility] Result panel 1600 (unknown) (no date) (unknown) [facility] (no value) [facility] Result panel 1601 (unknown) (no date) (unknown) [facility] (no value) [facility] Result panel 1602 (unknown) (no date) (unknown) [facility] (no value) [facility] Result panel 1603 (unknown) (no date) (unknown) [facility] (no value) [facility] Result panel 1604 (unknown) (no date) (unknown) [facility] (no value) [facility] Result panel 1605 (unknown) (no date) (unknown) [facility] (no value) [facility] Result panel 1606 (unknown) (no date) (unknown) [facility] (no value) [facility] Result panel 1607 (unknown) (no date) (unknown) [facility] (no value) [facility] Result panel 1608 (unknown) (no date) (unknown) [facility] (no value) [facility] Result panel 1609 (unknown) (no date) (unknown) [facility] (no value) [facility] Result panel 1610 (unknown) (no date) (unknown) [facility] (no value) [facility] Result panel 1611 (unknown) (no date) (unknown) [facility] (no value) [facility] Result panel 1612 (unknown) (no date) (unknown) [facility] (no value) [facility] Result panel 1613 (unknown) (no date) (unknown) [facility] (no value) [facility] Result panel 1614 (unknown) (no date) (unknown) [facility] (no value) [facility] Result panel 1615 (unknown) (no date) (unknown) [facility] (no value) [facility] Result panel 1616 (unknown) (no date) (unknown) [facility] (no value) [facility] Result panel 1617 (unknown) (no date) (unknown) [facility] (no value) [facility] Result panel 1618 (unknown) (no date) (unknown) [facility] (no value) [facility] Result panel 1619 (unknown) (no date) (unknown) [facility] (no value) [facility] Result panel 1620 (unknown) (no date) (unknown) [facility] (no value) [facility] Result panel 1621 (unknown) (no date) (unknown) [facility] (no value) [facility] Result panel 1622 (unknown) (no date) (unknown) [facility] (no value) [facility] Result panel 1623 (unknown) (no date) (unknown) [facility] (no value[facility] Result panel 1624 (unknown) (no date) (unknown) [facility] ([facility] value[facility] Result panel 1625 (unknown) (no date) (unknown) [facility] (no value) [facility] Result panel 1626 (unknown) (no date) (unknown) [facility] (no value) [facility] Result panel 1627 (unknown) (no date) (unknown) [facility] (no value) [facility] Result panel 1628 (unknown) (no date) (unknown) [facility] (no value) [facility] Result panel 1629 (unknown) (no date) (unknown) [facility] (no value) [facility] Result panel 1630 (unknown) (no date) (unknown) [facility] (no value) [facility] Result panel 1631 (unknown) (no date) (unknown) [facility] (no value) [facility] Result panel 1632 (unknown) (no date) (unknown) [facility] (no value) [facility] Result panel 1633 (unknown) (no date) (unknown) [facility] (no value) [facility] Result panel 1634 (unknown) (no date) (unknown) [facility] (no value) [facility] Result panel 1635 (unknown) (no date) (unknown) [facility] (no value) [facility] Result panel 1636 (unknown) (no date) (unknown) [facility] (no value) [facility] Result panel 1637 (unknown) (no date) (unknown) [facility] (no value) [facility] Result panel 1638 (unknown) (no date) (unknown) [facility] (no value) [facility] Result panel 1639 (unknown) (no date) (unknown) [facility] (no value) [facility] Result panel 1640 (unknown) (no date) (unknown) [facility] (no value) [facility] Result panel 1641 (unknown) (no date) (unknown) [facility] (no value) [facility] Result panel 1642 (unknown) (no date) (unknown) [facility] (no value) [facility] Result panel 1643 (unknown) (no date) (unknown) [facility] (no value) [facility] Result panel 1644 (unknown) (no date) (unknown) [facility] (no value) [facility] Result panel 1645 (unknown) (no date) (unknown) [facility] (no value) [facility] Result panel 1646 (unknown) (no date) (unknown) [facility] (no value) [facility] Result panel 1647 (unknown) (no date) (unknown) [facility] (no value) [facility] Result panel 1648 (unknown) (no date) (unknown) [facility]no value) [facility] Result panel 1649 (unknown) (no date) (unknown) [facility] (no value) [facility] Result panel 1650 (unknown) (no date) (unknown) [facility] (no value) [facility] Result panel 1651 (unknown) (no date) (unknown) [facility] (no value) [facility] Result panel 1652 (unknown) (no date) (unknown) [facility] (no value) [facility] Result panel 1653 (unknown) (no date) (unknown) [facility] (no value) [facility] Result panel 1654 (unknown) (no date) (unknown) [facility] (no value) [facility] Result panel 1655 (unknown) (no date) (unknown) [facility] (no value) [facility] Result panel 1656 (unknown) (no date) (unknown) [facility] (no value) [facility] Result panel 1657 (unknown) (no date) (unknown) [facility] (no value) [facility] Result panel 1658 (unknown) (no date) (unknown) [facility] (no value) [facility] Result panel 1659 (unknown) (no date) (unknown) [facility] (no value) [facility] Result panel 1660 (unknown) (no date) (unknown) [facility] (no value) [facility] Result panel 1661 (unknown) (no date) (unknown) [facility] (no value) [facility] Result panel 1662 (unknown) (no date) (unknown) [facility] (no value) [facility] Result panel 1663 (unknown) (no date) (unknown) [facility] (no value) [facility] Result panel 1664 (unknown) (no date) (unknown) [facility] (no value) [facility] Result panel 1665 (unknown) (no date) (unknown) [facility] (no value) [facility] Result panel 1666 (unknown) (no date) (unknown) [facility] (no value) [facility] Result panel 1667 (unknown) (no date) (unknown) [facility] (no value) [facility] Result panel 1668 (unknown) (no date) (unknown) [facility] (no value) [facility] Result panel 1669 (unknown) (no date) (unknown) [facility] (no value) [facility] Result panel 1670 (unknown) (no date) (unknown) [facility] (no value) [facility] Result panel 1671 (unknown) (no date) (unknown) [facility] (no value) [facility] Result panel 1672 (unknown) (no date) (unknown) [facility] (no value) [facility] Result panel 1673 (unknown) (no date) (unknown) [facility] (no value) [facility] Result panel 1674 (unknown) (no date) (unknown) [facility] (no value) [facility] Result panel 1675 (unknown) (no date) (unknown) [facility] (no value) [facility] Result panel 1676 (unknown) (no date) (unknown) [facility] (no value) [facility] Result panel 1677 (unknown) (no date) (unknown) [facility] (no value) [facility] Result panel 1678 (unknown) (no date) (unknown) [facility] (no value) [facility] Result panel 1679 (unknown) (no date) (unknown) [facility] (no value) [facility] Result panel 1680 (unknown) (no date) (unknown) [facility] (no value) [facility] Result panel 1681 (unknown) (no date) (unknown) [facility] (no value) [facility] Result panel 1682 (unknown) (no date) (unknown) [facility] (no value) [facility] Result panel 1683 (unknown) (no date) (unknown) [facility] (no value) [facility] Result panel 1684 (unknown) (no date) (unknown) [facility] (no value) [facility] Result panel 1685 (unknown) (no date) (unknown) [facility] (no value) [facility] Result panel 1686 (unknown) (no date) (unknown) [facility] (no value) [facility] Result panel 1687 (unknown) (no date) (unknown) [facility] (no value) [facility] Result panel 1688 (unknown) (no date) (unknown) [facility] (no value) [facility] Result panel 1689 (unknown) (no date) (unknown) [facility] (no value) [facility] Result panel 1690 (unknown) (no date) (unknown) [facility] (no value) [facility] Result panel 1691 (unknown) (no date) (unknown) [facility] (no value) [facility] Result panel 1692 (unknown) (no date) (unknown) [facility] (no value) [facility] Result panel 1693 (unknown) (no date) (unknown) [facility] (no value) [facility] Result panel 1694 (unknown) (no date) (unknown) [facility] (no value) [facility] Result panel 1695 (unknown) (no date) (unknown) [facility] (no value) [facility] Result panel 1696 (unknown) (no date) (unknown) [facility] (no value) [facility] Result panel 1697 (unknown) (no date) (unknown) [facility] (no value) [facility] Result panel 1698 (unknown) (no date) (unknown) [facility] (no value) [facility] Result panel 1699 (unknown) (no date) (unknown) [facility] (no value) [facility] Result panel 1700 (unknown) (no date) (unknown) [facility] (no value) [facility] Result panel 1701 (unknown) (no date) (unknown) [facility] (no value) [facility] Result panel 1702 (unknown) (no date) (unknown) [facility] (no value) [facility] Result panel 1703 (unknown) (no date) (unknown) [facility] (no value) [facility] Result panel 1704 (unknown) (no date) (unknown) [facility] (no value) [facility] Result panel 1705 (unknown) (no date) (unknown) [facility] (no value) [facility] Result panel 1706 (unknown) (no date) (unknown) [facility] (no value) [facility] Result panel 1707 (unknown) (no date) (unknown) [facility] (no value) [facility] Result panel 1708 (unknown) (no date) (unknown) [facility] (no value) [facility] Result panel 1709 (unknown) (no date) (unknown) [facility] (no value) [facility] Result panel 1710 (unknown) (no date) (unknown) [facility] (no value) [facility] Result panel 1711 (unknown) (no date) (unknown) [facility] (no value) [facility] Result panel 1712 (unknown) (no date) (unknown) [facility] (no value) [facility] Result panel 1713 (unknown) (no date) (unknown) [facility] (no value) [facility] Result panel 1714 (unknown) (no date) (unknown) [facility] (no value) [facility] Result panel 1715 (unknown) (no date) (unknown) [facility] (no value) [facility] Result panel 1716 (unknown) (no date) (unknown) [facility] (no value) [facility] Result panel 1717 (unknown) (no date) (unknown) [facility] (no value) [facility] Result panel 1718 (unknown) (no date) (unknown) [facility] (no value) [facility] Result panel 1719 (unknown) (no date) (unknown) [facility] (no value) [facility] Result panel 1720 (unknown) (no date) (unknown) [facility] (no value) [facility] Result panel 1721 (unknown) (no date) (unknown) [facility] (no value) [facility] Result panel 1722 (unknown) (no date) (unknown) [facility] (no value) [facility] Result panel 1723 (unknown) (no date) (unknown) [facility] (no value) [facility] Result panel 1724 (unknown) (no date) (unknown) [facility] (no value) [facility] Result panel 1725 (unknown) (no date) (unknown) [facility] (no value) [facility] Result panel 1726 (unknown) (no date) (unknown) [facility] (no value) [facility] Result panel 1727 (unknown) (no date) (unknown) [facility] (no value) [facility] Result panel 1728 (unknown) (no date) (unknown) [facility] (no value) [facility] Result panel 1729 (unknown) (no date) (unknown) [facility] (no value) [facility] Result panel 1730 (unknown) (no date) (unknown) [facility] (no value) [facility] Result panel 1731 (unknown) (no date) (unknown) [facility] (no value) [facility] Result panel 1732 (unknown) (no date) (unknown) [facility] (no value) [facility] Result panel 1733 (unknown) (no date) (unknown) [facility] (no value) [facility] Result panel 1734 (unknown) (no date) (unknown) [facility] (no value) [facility] Result panel 1735 (unknown) (no date) (unknown) [facility] (no value) [facility] Result panel 1736 (unknown) (no date) (unknown) [facility] (no value) [facility] Result panel 1737 (unknown) (no date) (unknown) [facility] (no value) [facility] Result panel 1738 (unknown) (no date) (unknown) [facility] (no value) [facility] Result panel 1739 (unknown) (no date) (unknown) [facility] (no value) [facility] Result panel 1740 (unknown) (no date) (unknown) [facility] (no value) [facility] Result panel 1741 (unknown) (no date) (unknown) [facility] (no value) [facility] Result panel 1742 (unknown) (no date) (unknown) [facility] (no value) [facility] Result panel 1743 (unknown) (no date) (unknown) [facility] (no value) [facility] Result panel 1744 (unknown) (no date) (unknown) [facility] (no value) [facility] Result panel 1745 (unknown) (no date) (unknown) [facility] (no value) [facility] Result panel 1746 (unknown) (no date) (unknown) [facility] (no value) [facility] Result panel 1747 (unknown) (no date) (unknown) [facility] (no value) [facility] Result panel 1748 (unknown) (no date) (unknown) [facility] (no value) [facility] Result panel 1749 (unknown) (no date) (unknown) [facility] (no value) [facility] Result panel 1750 (unknown) (no date) (unknown) [facility] (no value) [facility] Result panel 1751 (unknown) (no date) (unknown) [facility] (no value) [facility] Result panel 1752 (unknown) (no date) (unknown) [facility] (no value) [facility] Result panel 1753 (unknown) (no date) (unknown) [facility] (no value) [facility] Result panel 1754 (unknown) (no date) (unknown) [facility] (no value) [facility] Result panel 1755 (unknown) (no date) (unknown) [facility] (no value) [facility] Result panel 1756 (unknown) (no date) (unknown) [facility] (no value) [facility] Result panel 1757 (unknown) (no date) (unknown) [facility] (no value) [facility] Result panel 1758 (unknown) (no date) (unknown) [facility] (no value) [facility] Result panel 1759 (unknown) (no date) (unknown) [facility] (no value) [facility] Result panel 1760 (unknown) (no date) (unknown) [facility] (no value) [facility] Result panel 1761 (unknown) (no date) (unknown) [facility] (no value) [facility] Result panel 1762 (unknown) (no date) (unknown) [facility] (no value) [facility] Result panel 1763 (unknown) (no date) (unknown) [facility] (no value) [facility] Result panel 1764 (unknown) (no date) (unknown) [facility] (no value) [facility] Result panel 1765 (unknown) (no date) (unknown) [facility] (no value) [facility] Result panel 1766 (unknown) (no date) (unknown) [facility] (no value) [facility] Result panel 1767 (unknown) (no date) (unknown) [facility] (no value) [facility] Result panel 1768 (unknown) (no date) (unknown) [facility] (no value) [facility] Result panel 1769 (unknown) (no date) (unknown) [facility] (no value) [facility] Result panel 1770 (unknown) (no date) (unknown) [facility] (no value) [facility] Result panel 1771 (unknown) (no date) (unknown) [facility] (no value) [facility] Result panel 1772 (unknown) (no date) (unknown) [facility] (no value) [facility] Result panel 1773 (unknown) (no date) (unknown) [facility] (no value) [facility] Result panel 1774 (unknown) (no date) (unknown) [facility] (no value) [facility] Result panel 1775 (unknown) (no date) (unknown) [facility] (no value) [facility] Result panel 1776 (unknown) (no date) (unknown) [facility] (no value) [facility] Result panel 1777 (unknown) (no date) (unknown) [facility] (no value) [facility] Result panel 1778 (unknown) (no date) (unknown) [facility] (no value) [facility] Result panel 1779 (unknown) (no date) (unknown) [facility] (no value) [facility] Result panel 1780 (unknown) (no date) (unknown) [facility] (no value) [facility] Result panel 1781 (unknown) (no date) (unknown) [facility] (no value) [facility] Result panel 1782 (unknown) (no date) (unknown) [facility] (no value) [facility] Result panel 1783 (unknown) (no date) (unknown) [facility] (no value) [facility] Result panel 1784 (unknown) (no date) (unknown) [facility] (no value) [facility] Result panel 1785 (unknown) (no date) (unknown) [facility] (no value) [facility] Result panel 1786 (unknown) (no date) (unknown) [facility] (no value) [facility] Result panel 1787 (unknown) (no date) (unknown) [facility] (no value) [facility] Result panel 1788 (unknown) (no date) (unknown) [facility] (no value) [facility] Result panel 1789 (unknown) (no date) (unknown) [facility] (no value) [facility] Result panel 1790 (unknown) (no date) (unknown) [facility] (no value) [facility] Result panel 1791 (unknown) (no date) (unknown) [facility] (no value) [facility] Result panel 1792 (unknown) (no date) (unknown) [facility] (no value) [facility] Result panel 1793 (unknown) (no date) (unknown) [facility] value[facility] Result panel 1794 (unknown) (no date) (unknown) [facility] (no value) [facility] Result panel 1795 (unknown) (no date) (unknown) [facility] (no value) [facility] Result panel 1796 (unknown) (no date) (unknown) [facility] (no value) [facility] Result panel 1797 (unknown) (no date) (unknown) [facility] (no value) [facility] Result panel 1798 (unknown) (no date) (unknown) [facility] (no value) [facility] Result panel 1799 (unknown) (no date) (unknown) [facility] (no value) [facility] Result panel 1800 (unknown) (no date) (unknown) [facility] (no value) [facility] Result panel 1801 (unknown) (no date) (unknown) [facility] (no value) [facility] Result panel 1802 (unknown) (no date) (unknown) [facility] (no value) [facility] Result panel 1803 (unknown) (no date) (unknown) [facility] (no value) [facility] Result panel 1804 (unknown) (no date) (unknown) [facility] (no value) [facility] Result panel 1805 (unknown) (no date) (unknown) [facility] (no value) [facility] Result panel 1806 (unknown) (no date) (unknown) [facility] (no value) [facility] Result panel 1807 (unknown) (no date) (unknown) [facility] (no value) [facility] Result panel 1808 (unknown) (no date) (unknown) [facility] (no value) [facility] Result panel 1809 (unknown) (no date) (unknown) [facility] (no value) [facility] Result panel 1810 (unknown) (no date) (unknown) [facility] value[facility] Result panel 1811 (unknown) (no date) (unknown) [facility]no value) [facility] Result panel 1812 (unknown) (no date) (unknown) [facility] (no value) [facility] Result panel 1813 (unknown) (no date) (unknown) [facility] (no value) [facility] Result panel 1814 (unknown) (no date) (unknown) [facility] (no value) [facility] Result panel 1815 (unknown) (no date) (unknown) [facility] (no value) [facility] Result panel 1816 (unknown) (no date) (unknown) [facility] (no value) [facility] Result panel 1817 (unknown) (no date) (unknown) [facility] (no value) [facility] Result panel 1818 (unknown) (no date) (unknown) [facility] (no value) [facility] Result panel 1819 (unknown) (no date) (unknown) [facility] (no value) [facility] Result panel 1820 (unknown) (no date) (unknown) [facility] (no value) [facility] Result panel 1821 (unknown) (no date) (unknown) [facility] (no value) [facility] Result panel 1822 (unknown) (no date) (unknown) [facility] (no value) [facility] Result panel 1823 (unknown) (no date) (unknown) [facility] (no value) [facility] Result panel 1824 (unknown) (no date) (unknown) [facility] (no value) [facility] Result panel 1825 (unknown) (no date) (unknown) [facility] (no value) [facility] Result panel 1826 (unknown) (no date) (unknown) [facility] (no value) [facility] Result panel 1827 (unknown) (no date) (unknown) [facility] (no value) [facility] Result panel 1828 (unknown) (no date) (unknown) [facility] (no value) [facility] Result panel 1829 (unknown) (no date) (unknown) [facility] (no value) [facility] Result panel 1830 (unknown) (no date) (unknown) [facility] (no value) [facility] Result panel 1831 (unknown) (no date) (unknown) [facility] (no value) [facility] Result panel 1832 (unknown) (no date) (unknown) [facility] (no value) [facility] Result panel 1833 (unknown) (no date) (unknown) [facility] (no value) [facility] Result panel 1834 (unknown) (no date) (unknown) [facility] (no value) [facility] Result panel 1835 (unknown) (no date) (unknown) [facility] (no value) [facility] Result panel 1836 (unknown) (no date) (unknown) [facility] (no value) [facility] Result panel 1837 (unknown) (no date) (unknown) [facility] (no value) [facility] Result panel 1838 (unknown) (no date) (unknown) [facility] (no value) [facility] Result panel 1839 (unknown) (no date) (unknown) [facility] (no value) [facility] Result panel 1840 (unknown) (no date) (unknown) [facility] (no value) [facility] Result panel 1841 (unknown) (no date) (unknown) [facility] (no value) [facility] Result panel 1842 (unknown) (no date) (unknown) [facility] (no value) [facility] Result panel 1843 (unknown) (no date) (unknown) [facility] (no value) [facility] Result panel 1844 (unknown) (no date) (unknown) [facility] (no value) [facility] Result panel 1845 (unknown) (no date) (unknown) [facility] (no value) [facility] Result panel 1846 (unknown) (no date) (unknown) [facility] (no value) [facility] Result panel 1847 (unknown) (no date) (unknown) [facility] (no value) [facility] Result panel 1848 (unknown) (no date) (unknown) [facility] (no value) [facility] Result panel 1849 (unknown) (no date) (unknown) [facility] (no value) [facility] Result panel 1850 (unknown) (no date) (unknown) [facility] (no value) [facility] Result panel 1851 (unknown) (no date) (unknown) [facility] (no value) [facility] Result panel 1852 (unknown) (no date) (unknown) [facility] (no value) [facility] Result panel 1853 (unknown) (no date) (unknown) [facility] (no value) [facility] Result panel 1854 (unknown) (no date) (unknown) [facility] (no value) [facility] Result panel 1855 (unknown) (no date) (unknown) [facility] (no value) [facility] Result panel 1856 (unknown) (no date) (unknown) [facility] (no value) [facility] Result panel 1857 (unknown) (no date) (unknown) [facility] (no value) [facility] Result panel 1858 (unknown) (no date) (unknown) [facility] (no value) [facility] Result panel 1859 (unknown) (no date) (unknown) [facility] (no value) [facility] Result panel 1860 (unknown) (no date) (unknown) [facility] (no value) [facility] Result panel 1861 (unknown) (no date) (unknown) [facility] (no value) [facility] Result panel 1862 (unknown) (no date) (unknown) [facility] (no value) [facility] Result panel 1863 (unknown) (no date) (unknown) [facility] (no value) [facility] Result panel 1864 (unknown) (no date) (unknown) [facility] (no value) [facility] Result panel 1865 (unknown) (no date) (unknown) [facility] (no value) [facility] Result panel 1866 (unknown) (no date) (unknown) [facility] (no value) [facility] Result panel 1867 (unknown) (no date) (unknown) [facility] (no value) [facility] Result panel 1868 (unknown) (no date) (unknown) [facility] (no value) [facility] Result panel 1869 (unknown) (no date) (unknown) [facility] (no value) [facility] Result panel 1870 (unknown) (no date) (unknown) [facility] (no value) [facility] Result panel 1871 (unknown) (no date) (unknown) [facility] (no value) [facility] Result panel 1872 (unknown) (no date) (unknown) [facility] (no value) [facility] Result panel 1873 (unknown) (no date) (unknown) [facility] (no value) [facility] Result panel 1874 (unknown) (no date) (unknown) [facility] (no value) [facility] Result panel 1875 (unknown) (no date) (unknown) [facility] (no value) [facility] Result panel 1876 (unknown) (no date) (unknown) [facility] (no value) [facility] Result panel 1877 (unknown) (no date) (unknown) [facility] (no value) [facility] Result panel 1878 (unknown) (no date) (unknown) [facility] (no value) [facility] Result panel 1879 (unknown) (no date) (unknown) [facility] (no value) [facility] Result panel 1880 (unknown) (no date) (unknown) [facility] (no value) [facility] Result panel 1881 (unknown) (no date) (unknown) [facility] (no value) [facility] Result panel 1882 (unknown) (no date) (unknown) [facility] (no value) [facility] Result panel 1883 (unknown) (no date) (unknown) [facility] (no value) [facility] Result panel 1884 (unknown) (no date) (unknown) [facility] (no value) [facility] Result panel 1885 (unknown) (no date) (unknown) [facility] (no value) [facility] Result panel 1886 (unknown) (no date) (unknown) [facility] (no value) [facility] Result panel 1887 (unknown) (no date) (unknown) [facility] (no value) [facility] Result panel 1888 (unknown) (no date) (unknown) [facility] (no value) [facility] Result panel 1889 (unknown) (no date) (unknown) [facility] (no value) [facility] Result panel 1890 (unknown) (no date) (unknown) [facility] (no value) [facility] Result panel 1891 (unknown) (no date) (unknown) [facility] (no value) [facility] Result panel 1892 (unknown) (no date) (unknown) [facility] (no value) [facility] Result panel 1893 (unknown) (no date) (unknown) [facility] (no value) [facility] Result panel 1894 (unknown) (no date) (unknown) [facility] (no value) [facility] Result panel 1895 (unknown) (no date) (unknown) [facility] (no value) [facility] Result panel 1896 (unknown) (no date) (unknown) [facility] (no value) [facility] Result panel 1897 (unknown) (no date) (unknown) [facility] (no value) [facility] Result panel 1898 (unknown) (no date) (unknown) [facility] (no value) [facility] Result panel 1899 (unknown) (no date) (unknown) [facility] (no value) [facility] Result panel 1900 (unknown) (no date) (unknown) [facility] (no value) [facility] Result panel 1901 (unknown) (no date) (unknown) [facility] (no value) [facility] Result panel 1902 (unknown) (no date) (unknown) [facility] (no value) [facility] Result panel 1903 (unknown) (no date) (unknown) [facility] (no value) [facility] Result panel 1904 (unknown) (no date) (unknown) [facility] (no value) [facility] Result panel 1905 (unknown) (no date) (unknown) [facility] (no value) [facility] Result panel 1906 (unknown) (no date) (unknown) [facility] (no value) [facility] Result panel 1907 (unknown) (no date) (unknown) [facility] (no value) [facility] Result panel 1908 (unknown) (no date) (unknown) [facility] (no value) [facility] Result panel 1909 (unknown) (no date) (unknown) [facility] (no value) [facility] Result panel 1910 (unknown) (no date) (unknown) [facility] (no value) [facility] Result panel 1911 (unknown) (no date) (unknown) [facility] (no value) [facility] Result panel 1912 (unknown) (no date) (unknown) [facility] (no value) [facility] Result panel 1913 (unknown) (no date) (unknown) [facility] (no value) [facility] Result panel 1914 (unknown) (no date) (unknown) [facility] (no value) [facility] Result panel 1915 (unknown) (no date) (unknown) [facility] (no value) [facility] Result panel 191 (unknown) (no date) (unknown) [facility] (no value) [facility] Result panel 191 (unknown) (no date) (unknown) [facility] (no value) [facility] Result panel 191 (unknown) (no date) (unknown) [facility] (no value) [facility] Result panel 191 (unknown) (no date) (unknown) [facility] (no value) [facility] Result panel 192 (unknown) (no date) (unknown) [facility] (no value) [facility] Result panel 192 (unknown) (no date) (unknown) [facility] (no value) [facility] Result panel 192 (unknown) (no date) (unknown) [facility] (no value) [facility] Result panel 192 (unknown) (no date) (unknown) [facility] (no value) [facility] Result panel 1924 (unknown) (no date) (unknown) [facility] (no value) [facility] Result panel 1925 (unknown) (no date) (unknown) [facility] (no value) [facility] Result panel 1926 (unknown) (no date) (unknown) [facility] (no value) [facility] Result panel 1927 (unknown) (no date) (unknown) [facility] (no value) [facility] Result panel 1928 (unknown) (no date) (unknown) [facility] (no value) [facility] Result panel 192 (unknown) (no date) (unknown) [facility] (no value) [facility] Result panel 193 (unknown) (no date) (unknown) [facility] (no value) [facility] Result panel 193 (unknown) (no date) (unknown) [facility] (no value) [facility] Result panel 193 (unknown) (no date) (unknown) [facility] (no value) [facility] Result panel 193 (unknown) (no date) (unknown) [facility] (no value) [facility] Result panel 193 (unknown) (no date) (unknown) [facility] (no value) [facility] Result panel 1935 (unknown) (no date) (unknown) [facility] (no value) [facility] Result panel 1936 (unknown) (no date) (unknown) [facility] (no value) [facility] Result panel 193 (unknown) (no date) (unknown) [facility] (no value) [facility] Result panel 193 (unknown) (no date) (unknown) [facility] (no value) [facility] Result panel 1939 (unknown) (no date) (unknown) [facility] (no value) [facility] Result panel 194 (unknown) (no date) (unknown) [facility] (no value) [facility] Result panel 194 (unknown) (no date) (unknown) [facility] (no value) [facility] Result panel 194 (unknown) (no date) (unknown) [facility] (no value) [facility] Result panel 194 (unknown) (no date) (unknown) [facility] (no value) [facility] Result panel 194 (unknown) (no date) (unknown) [facility] (no value) [facility] Result panel 194 (unknown) (no date) (unknown) [facility] (no value) [facility] Result panel 194 (unknown) (no date) (unknown) [facility] (no value) [facility] Result panel 194 (unknown) (no date) (unknown) [facility] (no value) [facility] Result panel 194 (unknown) (no date) (unknown) [facility] (no value) [facility] Result panel 194 (unknown) (no date) (unknown) [facility] (no value) [facility] Result panel 1950 (unknown) (no date) (unknown) [facility] (no value) [facility] Result panel 195 (unknown) (no date) (unknown) [facility] (no value) [facility] Result panel 1951 (unknown) (no date) (unknown) [facility] (no value) [facility] Result panel 1952 (unknown) (no date) (unknown) [facility] (no value) [facility] Result panel 1953 (unknown) (no date) (unknown) [facility] (no value) [facility] Result panel 1954 (unknown) (no date) (unknown) [facility] (no value) [facility] Result panel 1955 (unknown) (no date) (unknown) [facility] (no value) [facility] Result panel 1956 (unknown) (no date) (unknown) [facility] (no value) [facility] Result panel 1957 (unknown) (no date) (unknown) [facility] (no value) [facility] Result panel 1958 (unknown) (no date) (unknown) [facility] (no value) [facility] Result panel 1959 (unknown) (no date) (unknown) [facility] (no value) [facility] Result panel 1960 (unknown) (no date) (unknown) [facility] (no value) [facility] Result panel 1961 (unknown) (no date) (unknown) [facility] (no value) [facility] Result panel 1962 (unknown) (no date) (unknown) [facility] (no value[facility] Result panel 1963 (unknown) (no date) (unknown) [facility] (no value) [facility] Result panel 1965 (unknown) (no date) (unknown) [facility] (no value) [facility] Result panel 1966 (unknown) (no date) (unknown) [facility] (no value) [facility] Result panel 1966 (unknown) (no date) (unknown) [facility] (no value) [facility] Result panel 1967 (unknown) (no date) (unknown) [facility] (no value) [facility] Result panel 1968 (unknown) (no date) (unknown) [facility] (no value) [facility] Result panel 1969 (unknown) (no date) (unknown) [facility] (no value) [facility] Result panel 1970 (unknown) (no date) (unknown) [facility] (no value) [facility] Result panel 1971 (unknown) (no date) (unknown) [facility] (no value) [facility] Result panel 1972 (unknown) (no date) (unknown) [facility] (no value) [facility] Result panel 1973 (unknown) (no date) (unknown) [facility] (no value) [facility] Result panel 1974 (unknown) (no date) (unknown) [facility] (no value) [facility] Result panel 1975 (unknown) (no date) (unknown) [facility] (no value) [facility] Result panel 1976 (unknown) (no date) (unknown) [facility] (no value) [facility] Result panel 1977 (unknown) (no date) (unknown) [facility] (no value) [facility] Result panel 1978 (unknown) (no date) (unknown) [facility] (no value) [facility] Result panel 1979 (unknown) (no date) (unknown) [facility] (no value) [facility] Result panel 1980 (unknown) (no date) (unknown) [facility] (no value) [facility] Result panel 1981 (unknown) (no date) (unknown) [facility] (no value) [facility] Result panel 1982 (unknown) (no date) (unknown) [facility] (no value) [facility] Result panel 1983 (unknown) (no date) (unknown) [facility] (no value) [facility] Result panel 1984 (unknown) (no date) (unknown) [facility] (no value) [facility] Result panel 1985 (unknown) (no date) (unknown) [facility] (no value) [facility] Result panel 1986 (unknown) (no date) (unknown) [facility] (no value) [facility] Result panel 1987 (unknown) (no date) (unknown) [facility] (no value) [facility] Result panel 1988 (unknown) (no date) (unknown) [facility] (no value) [facility] Result panel 1989 (unknown) (no date) (unknown) [facility] (no value) [facility] Result panel 1990 (unknown) (no date) (unknown) [facility] (no value) [facility] Result panel 1991 (unknown) (no date) (unknown) [facility] (no value) [facility] Result panel 1992 (unknown) (no date) (unknown) [facility] (no value) [facility] Result panel 1993 (unknown) (no date) (unknown) [facility] (no value) [facility] Result panel 1994 (unknown) (no date) (unknown) [facility] (no value) [facility] Result panel 1995 (unknown) (no date) (unknown) [facility] (no value) [facility] Result panel 1996 (unknown) (no date) (unknown) [facility] (no value) [facility] Result panel 1997 (unknown) (no date) (unknown) [facility] (no value) [facility] Result panel 1998 (unknown) (no date) (unknown) [facility] (no value) [facility] Result panel 1999 (unknown) (no date) (unknown) [facility] (no value) [facility] Result panel 2000 (unknown) (no date) (unknown) [facility] (no value) [facility] Result panel 2001 (unknown) (no date) (unknown) [facility] (no value) [facility] Result panel 2002 (unknown) (no date) (unknown) [facility] (no value) [facility] Result panel 2003 (unknown) (no date) (unknown) [facility] (no value) [facility] Result panel 2005 (unknown) (no (unknown) [facility]-In [facility] (no (units ( unknown) date) [facility]) [facility] Result panel 2006 (unknown) (no date) (unknown) [facility] (no value) [facility] Result panel 2007 (unknown) (no date) (unknown) [facility] (no value) [facility] Result panel 2008 (unknown) (no date) (unknown) [facility] (no value) [facility] Result panel 2008 (unknown) (no date) (unknown) [facility] (no value) [facility] Result panel 2009 (unknown) (no date) (unknown) [facility] (no value) [facility] Result panel 2010 (unknown) (no date) (unknown) [facility] (no value) [facility] Result panel 2012 (unknown) (no date) (unknown) [facility] (no value) [facility] Result panel 2013 (unknown) (no date) (unknown) [facility] (no value) [facility] Result panel 2014 (unknown) (no date) (unknown) [facility] (no value) [facility] Result panel 2015 (unknown) (no date) (unknown) [facility] (no value) [facility] Result panel 2016 (unknown) (no date) (unknown) [facility] (no value) [facility] Result panel 2017 (unknown) (no date) (unknown) [facility] (no value) [facility] Result panel 2017 (unknown) (no date) (unknown) [facility] (no value) [facility] Result panel 2018 (unknown) (no date) (unknown) [facility] (no value) [facility] Result panel 2019 (unknown) (no date) (unknown) [facility] (no value) [facility] Result panel 2020 (unknown) (no date) (unknown) [facility] (no value) [facility] Result panel 2021 (unknown) (no date) (unknown) [facility] (no value) [facility] Result panel 2022 (unknown) (no date) (unknown) [facility] (no value) [facility] Result panel 2023 (unknown) (no date) (unknown) [facility] (no value) [facility] Result panel 2024 (unknown) (no date) (unknown) [facility] (no value) [facility] Result panel 2025 (unknown) (no date) (unknown) [facility] (no value) [facility] Result panel 2026 (unknown) (no date) (unknown) [facility] (no value) [facility] Result panel 2027 (unknown) (no date) (unknown) [facility] (no value) [facility] Result panel 2028 (unknown) (no date) (unknown) [facility] (no value) [facility] Result panel 2029 (unknown) (no date) (unknown) [facility] (no value) [facility] Result panel 2030 (unknown) (no date) (unknown) [facility] (no value) [facility] Result panel 2031 (unknown) (no date) (unknown) [facility] (no value) [facility] Result panel 2032 (unknown) (no date) (unknown) [facility] (no value) [facility] Result panel 2033 (unknown) (no date) (unknown) [facility] (no value) [facility] Result panel 2034 (unknown) (no date) (unknown) [facility] (no value) [facility] Result panel 2035 (unknown) (no date) (unknown) [facility] (no value) [facility] Result panel 2036 (unknown) (no date) (unknown) [facility] (no value) [facility] Result panel 2037 (unknown) (no date) (unknown) [facility] (no value) [facility] Result panel 2038 (unknown) (no date) (unknown) [facility] (no value) [facility] Result panel 2039 (unknown) (no date) (unknown) [facility] (no value) [facility] Result panel 2040 (unknown) (no date) (unknown) [facility] (no value) [facility] Result panel 2041 (unknown) (no date) (unknown) [facility] (no value) [facility] Result panel 2042 (unknown) (no date) (unknown) [facility] (no value) [facility] Result panel 2043 (unknown) (no date) (unknown) [facility] (no value) [facility] Result panel 2044 (unknown) (no date) (unknown) [facility] (no value) [facility] Result panel 2045 (unknown) (no date) (unknown) [facility] (no value) [facility] Result panel 2046 (unknown) (no date) (unknown) [facility] (no value) [facility] Result panel 2047 (unknown) (no date) (unknown) [facility] (no value) [facility] Result panel 2048 (unknown) (no date) (unknown) [facility] (no value) [facility] Result panel 2049 (unknown) (no date) (unknown) [facility] (no value) [facility] Result panel 2050 (unknown) (no date) (unknown) [facility] (no value) [facility] Result panel 2051 (unknown) (no date) (unknown) [facility] (no value) [facility] Result panel 2052 (unknown) (no date) (unknown) [facility] (no value) [facility] Result panel 2053 (unknown) (no date) (unknown) [facility] (no value) [facility] Result panel 2054 (unknown) (no date) (unknown) [facility] (no value) [facility] Result panel 2055 (unknown) (no date) (unknown) [facility] (no value) [facility] Result panel 2056 (unknown) (no date) (unknown) [facility] (no value) [facility] Result panel 2057 (unknown) (no date) (unknown) [facility] (no value) [facility] Result panel 2058 (unknown) (no date) (unknown) [facility] (no value) [facility] Result panel 2059 (unknown) (no date) (unknown) [facility] (no value) [facility] Result panel 2060 (unknown) (no date) (unknown) [facility] (no value) [facility] Result panel 2061 (unknown) (no date) (unknown) [facility] (no value) [facility] Result panel 2062 (unknown) (no date) (unknown) [facility] (no value) [facility] Result panel 2063 (unknown) (no date) (unknown) [facility] (no value) [facility] Result panel 2064 (unknown) (no date) (unknown) [facility] (no value) [facility] Result panel 2065 (unknown) (no date) (unknown) [facility] (no value) [facility] Result panel 2066 (unknown) (no date) (unknown) [facility] (no value) [facility] Result panel 2067 (unknown) (no date) (unknown) [facility] (no value) [facility] Result panel 2068 (unknown) (no date) (unknown) [facility] (no value) [facility] Result panel 2069 (unknown) (no date) (unknown) [facility] (no value) [facility] Result panel 2070 (unknown) (no date) (unknown) [facility] (no value) [facility] Result panel 2071 (unknown) (no date) (unknown) [facility] (no value) [facility] Result panel 2072 (unknown) (no date) (unknown) [facility] (no value) [facility] Result panel 2073 (unknown) (no date) (unknown) [facility] (no value) [facility] Result panel 2074 (unknown) (no date) (unknown) [facility] (no value) [facility] Result panel 2075 (unknown) (no date) (unknown) [facility] (no value) [facility] Result panel 2076 (unknown) (no date) (unknown) [facility] (no value) [facility] Result panel 2077 (unknown) (no date) (unknown) [facility] (no value) [facility] Result panel 2078 (unknown) (no date) (unknown) [facility] (no value) [facility] Result panel 2079 (unknown) (no date) (unknown) [facility] (no value) [facility] Result panel 2080 (unknown) (no date) (unknown) [facility] (no value) [facility] Result panel 2081 (unknown) (no date) (unknown) [facility] (no value) [facility] Result panel 2082 (unknown) (no date) (unknown) [facility] (no value) [facility] Result panel 2083 (unknown) (no date) (unknown) [facility] (no value) [facility] Result panel 2084 (unknown) (no date) (unknown) [facility] (no value) [facility] Result panel 2085 (unknown) (no date) (unknown) [facility] (no value) [facility] Result panel 2086 (unknown) (no date) (unknown) [facility] (no value) [facility] Result panel 2087 (unknown) (no date) (unknown) [facility] (no value) [facility] Result panel 2088 (unknown) (no date) (unknown) [facility] (no value) [facility] Result panel 2089 (unknown) (no date) (unknown) [facility] (no value) [facility] Result panel 2090 (unknown) (no date) (unknown) [facility] (no value) [facility] Result panel 2091 (unknown) (no date) (unknown) [facility] (no value) [facility] Result panel 2092 (unknown) (no date) (unknown) [facility] (no value) [facility] Result panel 2093 (unknown) (no date) (unknown) [facility] (no value) [facility] Result panel 2094 (unknown) (no date) (unknown) [facility] (no value) [facility] Result panel 2095 (unknown) (no date) (unknown) [facility] (no value) [facility] Result panel 2096 (unknown) (no date) (unknown) [facility] (no value) [facility] Result panel 2097 (unknown) (no date) (unknown) [facility] (no value) [facility] Result panel 2098 (unknown) (no date) (unknown) [facility] (no value) [facility] Result panel 2099 (unknown) (no date) (unknown) [facility] (no value) [facility] Result panel 2100 (unknown) (no date) (unknown) [facility] (no value) [facility] Result panel 2102 (unknown) (no date) (unknown) [facility] (no value) [facility] Result panel 2103 (unknown) (no date) (unknown) [facility] (no value) [facility] Result panel 2104 (unknown) (no date) (unknown) [facility] (no value) [facility] Result panel 2105 (unknown) (no date) (unknown) [facility] (no value) [facility] Result panel 2106 (unknown) (no date) (unknown) [facility] (no value) [facility] Result panel 2107 (unknown) (no date) (unknown) [facility] (no value) [facility] Result panel 2108 (unknown) (no date) (unknown) [facility] (no value) [facility] Result panel 210 (unknown) (no date) (unknown) [facility] (no value) [facility] Result panel 2109 (unknown) (no date) (unknown) [facility] (no value) [facility] Result panel 2110 (unknown) (no date) (unknown) [facility] (no value) [facility] Result panel 2 (unknown) (no date) (unknown) [facility] (no value) [facility] Result panel 3 (unknown) (no date) (unknown) [facility] (no value) [facility] Result panel 4 (unknown) (no date) (unknown) [facility] (no value) [facility] Result panel 2115 (unknown) (no date) (unknown) [facility] (no value) [facility] Result panel 2116 (unknown) (no date) (unknown) [facility] (no value) [facility] Result panel 2117 (unknown) (no date) (unknown) [facility] (no value) [facility] Result panel 2118 (unknown) (no date) (unknown) [facility] (no value) [facility] Result panel 2119 (unknown) (no date) (unknown) [facility] (no value) [facility] Result panel 2120 (unknown) (no date) (unknown) [facility] (no value) [facility] Result panel 2121 (unknown) (no date) (unknown) [facility] (no value) [facility] Result panel 2122 (unknown) (no date) (unknown) [facility] (no value) [facility] Result panel 2123 (unknown) (no date) (unknown) [facility] (no value) [facility] Result panel 2124 (unknown) (no date) (unknown) [facility] (no value) [facility] Result panel 2125 (unknown) (no date) (unknown) [facility] (no value) [facility] Result panel 2126 (unknown) (no date) (unknown) [facility] (no value) [facility] Result panel 2127 (unknown) (no date) (unknown) [facility] (no value) [facility] Result panel 2128 (unknown) (no date) (unknown) [facility] (no value) [facility] Result panel 2129 (unknown) (no date) (unknown) [facility] (no value) [facility] Result panel 2130 (unknown) (no date) (unknown) [facility] (no value) [facility] Result panel 2131 (unknown) (no date) (unknown) [facility] value[facility] Result panel 2132 (unknown) (no date) (unknown) [facility] (no value) [facility] Result panel 2133 (unknown) (no date) (unknown) [facility] (no value) [facility] Result panel 2134 (unknown) (no date) (unknown) [facility] (no value) [facility] Result panel 2135 (unknown) (no date) (unknown) [facility] (no value) [facility] Result panel 2136 (unknown) (no date) (unknown) [facility] (no value) [facility] Result panel 2137 (unknown) (no date) (unknown) [facility] (no value) [facility] Result panel 2138 (unknown) (no date) (unknown) [facility] (no value) [facility] Result panel 2139 (unknown) (no date) (unknown) [facility] (no value) [facility] Result panel 2140 (unknown) (no date) (unknown) [facility] (no value) [facility] Result panel 2141 (unknown) (no date) (unknown) [facility] (no value) [facility] Result panel 2142 (unknown) (no date) (unknown) [facility] (no value) [facility] Result panel 2143 (unknown) (no date) (unknown) [facility] (no value) [facility] Result panel 2144 (unknown) (no date) (unknown) [facility] (no value) [facility] Result panel 2145 (unknown) (no date) (unknown) [facility] (no value) [facility] Result panel 2146 (unknown) (no date) (unknown) [facility] (no value) [facility] Result panel 2147 (unknown) (no date) (unknown) [facility] (no value) [facility] Result panel 2148 (unknown) (no date) (unknown) [facility] (no value) [facility] Result panel 2149 (unknown) (no date) (unknown) [facility] (no value) [facility] Result panel 2150 (unknown) (no date) (unknown) [facility] (no value) [facility] Result panel 2151 (unknown) (no date) (unknown) [facility] (no value) [facility] Result panel 2152 (unknown) (no date) (unknown) [facility] (no value) [facility] Result panel 2153 (unknown) (no date) (unknown) [facility] (no value) [facility] Result panel 2154 (unknown) (no date) (unknown) [facility] (no value) [facility] Result panel 2155 (unknown) (no date) (unknown) [facility] (no value) [facility] Result panel 2156 (unknown) (no date) (unknown) [facility] (no value) [facility] Result panel 2157 (unknown) (no date) (unknown) [facility] (no value) [facility] Result panel 2158 (unknown) (no date) (unknown) [facility] (no value) [facility] Result panel 2159 (unknown) (no date) (unknown) [facility] (no value) [facility] Result panel 2160 (unknown) (no date) (unknown) [facility] (no value) [facility] Result panel 2161 (unknown) (no date) (unknown) [facility] (no value) [facility] Result panel 2162 (unknown) (no date) (unknown) [facility] (no value) [facility] Result panel 2163 (unknown) (no date) (unknown) [facility] (no value) [facility] Result panel 2164 (unknown) (no date) (unknown) [facility] (no value) [facility] Result panel 2165 (unknown) (no date) (unknown) [facility] (no value) [facility] Result panel 2166 (unknown) (no date) (unknown) [facility] (no value) [facility] Result panel 2167 (unknown) (no date) (unknown) [facility] (no value) [facility] Result panel 2168 (unknown) (no date) (unknown) [facility] (no value) [facility] Result panel 2169 (unknown) (no date) (unknown) [facility] (no value) [facility] Result panel 2170 (unknown) (no date) (unknown) [facility] (no value) [facility] Result panel 2171 (unknown) (no date) (unknown) [facility] (no value) [facility] Result panel 2172 (unknown) (no date) (unknown) [facility] (no value) [facility] Result panel 2173 (unknown) (no date) (unknown) [facility] (no value) [facility] Result panel 2174 (unknown) (no date) (unknown) [facility] (no value) [facility] Result panel 2175 (unknown) (no date) (unknown) [facility] (no value) [facility] Result panel 2176 (unknown) (no date) (unknown) [facility] (no value) [facility] Result panel 2177 (unknown) (no date) (unknown) [facility] (no value) [facility] Result panel 2178 (unknown) (no date) (unknown) [facility] (no value) [facility] Result panel 2179 (unknown) (no date) (unknown) [facility] (no value) [facility] Result panel 2180 (unknown) (no date) (unknown) [facility] (no value) [facility] Result panel 2181 (unknown) (no date) (unknown) [facility] (no value) [facility] Result panel 2182 (unknown) (no date) (unknown) [facility] (no value) [facility] Result panel 2183 (unknown) (no date) (unknown) [facility] (no value) [facility] Result panel 2184 (unknown) (no date) (unknown) [facility] (no value) [facility] Result panel 2185 (unknown) (no date) (unknown) [facility] (no value) [facility] Result panel 2186 (unknown) (no date) (unknown) [facility] (no value) [facility] Result panel 2187 (unknown) (no date) (unknown) [facility] (no value) [facility] Result panel 2188 (unknown) (no date) (unknown) [facility] (no value) [facility] Result panel 2189 (unknown) (no date) (unknown) [facility] (no value) [facility] Result panel 2190 (unknown) (no date) (unknown) [facility] (no value) [facility] Result panel 2191 (unknown) (no date) (unknown) [facility] (no value) [facility] Result panel 2192 (unknown) (no date) (unknown) [facility] (no value) [facility] Result panel 2193 (unknown) (no date) (unknown) [facility] (no value) [facility] Result panel 2194 (unknown) (no date) (unknown) [facility] (no value) [facility] Result panel 2195 (unknown) (no date) (unknown) [facility] (no value) [facility] Result panel 2196 (unknown) (no date) (unknown) [facility] (no value) [facility] Result panel 2197 (unknown) (no date) (unknown) [facility] (no value) [facility] Result panel 2198 (unknown) (no date) (unknown) [facility] (no value) [facility] Result panel 2199 (unknown) (no date) (unknown) [facility] (no value) [facility] Result panel 2200 (unknown) (no date) (unknown) [facility] (no value) [facility] Result panel 2201 (unknown) (no date) (unknown) [facility] (no value) [facility] Result panel 2202 (unknown) (no date) (unknown) [facility] (no value) [facility] Result panel 2203 (unknown) (no date) (unknown) [facility] (no value) [facility] Result panel 2204 (unknown) (no date) (unknown) [facility] (no value) [facility] Result panel 2205 (unknown) (no date) (unknown) [facility] (no value) [facility] Result panel 2206 (unknown) (no date) (unknown) [facility] (no value) [facility] Result panel 2207 (unknown) (no date) (unknown) [facility] (no value) [facility] Result panel 2208 (unknown) (no date) (unknown) [facility] (no value) [facility] Result panel 2209 (unknown) (no date) (unknown) [facility] (no value) [facility] Result panel 2210 (unknown) (no date) (unknown) [facility] (no value) [facility] Result panel 2211 (unknown) (no date) (unknown) [facility] (no value) [facility] Result panel 2212 (unknown) (no date) (unknown) [facility] (no value) [facility] Result panel 2213 (unknown) (no date) (unknown) [facility] (no value) [facility] Result panel 2214 (unknown) (no date) (unknown) [facility] (no value) [facility] Result panel 2215 (unknown) (no date) (unknown) [facility] (no value) [facility] Result panel 2216 (unknown) (no date) (unknown) [facility] (no value) [facility] Result panel 2217 (unknown) (no date) (unknown) [facility] (no value) [facility] Result panel 2218 (unknown) (no date) (unknown) [facility] (no value) [facility] Result panel 2219 (unknown) (no date) (unknown) [facility] (no value) [facility] Result panel 2220 (unknown) (no date) (unknown) [facility] (no value) [facility] Result panel 2221 (unknown) (no date) (unknown) [facility] (no value) [facility] Result panel 2222 (unknown) (no date) (unknown) [facility] (no value) [facility] Result panel 2223 (unknown) (no date) (unknown) [facility] (no value) [facility] Result panel 2224 (unknown) (no date) (unknown) [facility] (no value) [facility] Result panel 2225 (unknown) (no date) (unknown) [facility] (no value) [facility] Result panel 2226 (unknown) (no date) (unknown) [facility] (no value) [facility] Result panel 2227 (unknown) (no date) (unknown) [facility] (no value) [facility] Result panel 2228 (unknown) (no date) (unknown) [facility] (no value[facility] Result panel 2229 (unknown) (no date) (unknown) [facility] (no value) [facility] Result panel 2230 (unknown) (no date) (unknown) [facility] (no value) [facility] Result panel 2231 (unknown) (no date) (unknown) [facility] (no value) [facility] Result panel 2232 (unknown) (no date) (unknown) [facility] (no value) [facility] Result panel 2233 (unknown) (no date) (unknown) [facility] (no value) [facility] Result panel 2234 (unknown) (no date) (unknown) [facility] (no value) [facility] Result panel 2235 (unknown) (no date) (unknown) [facility] (no value) [facility] Result panel 2236 (unknown) (no date) (unknown) [facility] (no value) [facility] Result panel 2237 (unknown) (no date) (unknown) [facility] (no value) [facility] Result panel 2238 (unknown) (no date) (unknown) [facility] (no value) [facility] Result panel 2239 (unknown) (no date) (unknown) [facility] (no value) [facility] Result panel 2240 (unknown) (no date) (unknown) [facility] (no value) [facility] Result panel 2241 (unknown) (no date) (unknown) [facility] (no value) [facility] Result panel 2242 (unknown) (no date) (unknown) [facility] (no value) [facility] Result panel 2243 (unknown) (no date) (unknown) [facility] (no value) [facility] Result panel 2244 (unknown) (no date) (unknown) [facility] (no value) [facility] Result panel 2245 (unknown) (no date) (unknown) [facility] (no value) [facility] Result panel 2246 (unknown) (no date) (unknown) [facility] (no value) [facility] Result panel 2247 (unknown) (no date) (unknown) [facility] (no value) [facility] Result panel 2248 (unknown) (no date) (unknown) [facility] (no value) [facility] Result panel 2249 (unknown) (no date) (unknown) [facility] (no value) [facility] Result panel 2250 (unknown) (no date) (unknown) [facility] (no value) [facility] Result panel 2251 (unknown) (no date) (unknown) [facility] (no value) [facility] Result panel 2252 (unknown) (no date) (unknown) [facility] (no value) [facility] Result panel 2253 (unknown) (no date) (unknown) [facility] (no value) [facility] Result panel 2254 (unknown) (no date) (unknown) [facility] (no value) [facility] Result panel 2255 (unknown) (no date) (unknown) [facility] (no value) [facility] Result panel 2256 (unknown) (no date) (unknown) [facility] (no value) [facility] Result panel 2257 (unknown) (no date) (unknown) [facility] (no value) [facility] Result panel 2258 (unknown) (no date) (unknown) [facility] (no value) [facility] Result panel 2259 (unknown) (no date) (unknown) [facility] (no value) [facility] Result panel 2260 (unknown) (no date) (unknown) [facility] (no value) [facility] Result panel 2261 (unknown) (no date) (unknown) [facility] (no value) [facility] Result panel 2262 (unknown) (no date) (unknown) [facility] (no value) [facility] Result panel 2263 (unknown) (no date) (unknown) [facility] (no value) [facility] Result panel 2264 (unknown) (no date) (unknown) [facility] (no value) [facility] Result panel 2265 (unknown) (no date) (unknown) [facility] (no value) [facility] Result panel 2266 (unknown) (no date) (unknown) [facility] (no value) [facility] Result panel 2267 (unknown) (no date) (unknown) [facility] (no value) [facility] Result panel 2268 (unknown) (no date) (unknown) [facility] (no value) [facility] Result panel 2269 (unknown) (no date) (unknown) [facility] (no value) [facility] Result panel 2270 (unknown) (no date) (unknown) [facility] (no value) [facility] Result panel 2271 (unknown) (no date) (unknown) [facility] (no value) [facility] Result panel 2272 (unknown) (no date) (unknown) [facility] (no value) [facility] Result panel 2273 (unknown) (no date) (unknown) [facility] (no value) [facility] Result panel 2274 (unknown) (no date) (unknown) [facility] (no value) [facility] Result panel 2275 (unknown) (no date) (unknown) [facility] (no value) [facility] Result panel 2276 (unknown) (no date) (unknown) [facility] (no value) [facility] Result panel 2277 (unknown) (no date) (unknown) [facility] (no value) [facility] Result panel 2278 (unknown) (no date) (unknown) [facility] (no value) [facility] Result panel 2279 (unknown) (no date) (unknown) [facility] (no value) [facility] Result panel 2280 (unknown) (no date) (unknown) [facility] (no value) [facility] Result panel 2281 (unknown) (no date) (unknown) [facility] (no value) [facility] Result panel 2282 (unknown) (no date) (unknown) [facility] (no value) [facility] Result panel 2283 (unknown) (no date) (unknown) [facility] (no value) [facility] Result panel 2284 (unknown) (no date) (unknown) [facility] (no value) [facility] Result panel 2285 (unknown) (no date) (unknown) [facility] (no value) [facility] Result panel 2286 (unknown) (no date) (unknown) [facility] (no value) [facility] Result panel 2287 (unknown) (no date) (unknown) [facility] (no value) [facility] Result panel 2288 (unknown) (no date) (unknown) [facility] (no value) [facility] Result panel 2289 (unknown) (no date) (unknown) [facility] (no value) [facility] Result panel 2290 (unknown) (no date) (unknown) [facility] (no value[facility] Result panel 2291 (unknown) (no date) (unknown) [facility] (no value) [facility] Result panel 2292 (unknown) (no date) (unknown) [facility] (no value) [facility] Result panel 2293 (unknown) (no date) (unknown) [facility] (no value) [facility] Result panel 2294 (unknown) (no date) (unknown) [facility] (no value) [facility] Result panel 2295 (unknown) (no date) (unknown) [facility] (no value) [facility] Result panel 2296 (unknown) (no date) (unknown) [facility] (no value) [facility] Result panel 2297 (unknown) (no date) (unknown) [facility] (no value) [facility] Result panel 2298 (unknown) (no date) (unknown) [facility] (no value) [facility] Result panel 2299 (unknown) (no date) (unknown) [facility] (no value) [facility] Result panel 2300 (unknown) (no date) (unknown) [facility]no value[facility] Result panel 2301 (unknown) (no date) (unknown) [facility] (no value) [facility] Result panel 2302 (unknown) (no date) (unknown) [facility] (no value) [facility] Result panel 2303 (unknown) (no date) (unknown) [facility] (no value) [facility] Result panel 2304 (unknown) (no date) (unknown) [facility] (no value) [facility] Result panel 2305 (unknown) (no date) (unknown) [facility] (no value) [facility] Result panel 2306 (unknown) (no date) (unknown) [facility] (no value) [facility] Result panel 2307 (unknown) (no date) (unknown) [facility] (no value) [facility] Result panel 2308 (unknown) (no date) (unknown) [facility] (no value) [facility] Result panel 2309 (unknown) (no date) (unknown) [facility] (no value) [facility] Result panel 2310 (unknown) (no date) (unknown) [facility] (no value) [facility] Result panel 2311 (unknown) (no date) (unknown) [facility] (no value) [facility] Result panel 2312 (unknown) (no date) (unknown) [facility] (no value) [facility] Result panel 2313 (unknown) (no date) (unknown) [facility] (no value) [facility] Result panel 2314 (unknown) (no date) (unknown) [facility] (no value) [facility] Result panel 2315 (unknown) (no date) (unknown) [facility] (no value) [facility] Result panel 2316 (unknown) (no date) (unknown) [facility] (no value) [facility] Result panel 2317 (unknown) (no date) (unknown) [facility] (no value) [facility] Result panel 2318 (unknown) (no date) (unknown) [facility] (no value) [facility] Result panel 2319 (unknown) (no date) (unknown) [facility] (no value) [facility] Result panel 2320 (unknown) (no date) (unknown) [facility]no value) [facility] Result panel 2321 (unknown) (no date) (unknown) [facility] (no value) [facility] Result panel 2322 (unknown) (no date) (unknown) [facility] (no value) [facility] Result panel 2323 (unknown) (no date) (unknown) [facility] (no value) [facility] Result panel 2324 (unknown) (no date) (unknown) [facility] (no value) [facility] Result panel 2325 (unknown) (no date) (unknown) [facility] (no value) [facility] Result panel 2326 (unknown) (no date) (unknown) [facility] (no value) [facility] Result panel 2327 (unknown) (no date) (unknown) [facility] (no value) [facility] Result panel 2328 (unknown) (no date) (unknown) [facility] (no value) [facility] Result panel 2329 (unknown) (no date) (unknown) [facility] (no value) [facility] Result panel 2330 (unknown) (no date) (unknown) [facility] (no value) [facility] Result panel 2331 (unknown) (no date) (unknown) [facility] (no value) [facility] Result panel 2332 (unknown) (no date) (unknown) [facility] (no value) [facility] Result panel 2333 (unknown) (no date) (unknown) [facility] (no value) [facility] Result panel 2334 (unknown) (no date) (unknown) [facility] (no value) [facility] Result panel 2335 (unknown) (no date) (unknown) [facility] (no value) [facility] Result panel 2336 (unknown) (no date) (unknown) [facility] (no value) [facility] Result panel 2337 (unknown) (no date) (unknown) [facility] (no value) [facility] Result panel 2338 (unknown) (no date) (unknown) [facility] (no value) [facility] Result panel 2339 (unknown) (no date) (unknown) [facility] (no value) [facility] Result panel 2340 (unknown) (no date) (unknown) [facility] (no value) [facility] Result panel 2341 (unknown) (no date) (unknown) [facility] (no value) [facility] Result panel 2342 (unknown) (no date) (unknown) [facility] (no value) [facility] Result panel 2343 (unknown) (no date) (unknown) [facility] (no value) [facility] Result panel 2344 (unknown) (no date) (unknown) [facility] (no value) [facility] Result panel 2345 (unknown) (no date) (unknown) [facility] (no value) [facility] Result panel 2346 (unknown) (no date) (unknown) [facility] (no value) [facility] Result panel 2347 (unknown) (no date) (unknown) [facility] (no value) [facility] Result panel 2348 (unknown) (no date) (unknown) [facility] (no value) [facility] Result panel 2349 (unknown) (no date) (unknown) [facility] (no value) [facility] Result panel 2350 (unknown) (no date) (unknown) [facility] (no value) [facility] Result panel 2351 (unknown) (no date) (unknown) [facility] (no value) [facility] Result panel 2352 (unknown) (no date) (unknown) [facility] (no value) [facility] Result panel 2353 (unknown) (no date) (unknown) [facility] (no value) [facility] Result panel 2354 (unknown) (no date) (unknown) [facility] (no value) [facility] Result panel 2355 (unknown) (no date) (unknown) [facility] (no value) [facility] Result panel 2356 (unknown) (no date) (unknown) [facility] (no value) [facility] Result panel 2357 (unknown) (no date) (unknown) [facility] (no value) [facility] Result panel 2358 (unknown) (no date) (unknown) [facility] (no value) [facility] Result panel 2359 (unknown) (no date) (unknown) [facility] (no value) [facility] Result panel 2360 (unknown) (no date) (unknown) [facility] (no value) [facility] Result panel 2361 (unknown) (no date) (unknown) [facility] (no value) [facility] Result panel 2362 (unknown) (no date) (unknown) [facility] (no value) [facility] Result panel 2363 (unknown) (no date) (unknown) [facility] (no value) [facility] Result panel 2364 (unknown) (no date) (unknown) [facility] (no value) [facility] Result panel 2365 (unknown) (no date) (unknown) [facility] (no value) [facility] Result panel 2366 (unknown) (no date) (unknown) [facility] (no value) [facility] Result panel 2367 (unknown) (no date) (unknown) [facility] (no value) [facility] Result panel 2368 (unknown) (no date) (unknown) [facility] (no value) [facility] Result panel 2369 (unknown) (no date) (unknown) [facility] (no value) [facility] Result panel 2370 (unknown) (no date) (unknown) [facility] (no value) [facility] Result panel 2371 (unknown) (no date) (unknown) [facility] (no value) [facility] Result panel 2372 (unknown) (no date) (unknown) [facility] (no value) [facility] Result panel 2373 (unknown) (no date) (unknown) [facility] (no value) [facility] Result panel 2374 (unknown) (no date) (unknown) [facility] (no value) [facility] Result panel 2375 (unknown) (no date) (unknown) [facility] (no value) [facility] Result panel 2376 (unknown) (no date) (unknown) [facility] (no value) [facility] Result panel 2377 (unknown) (no date) (unknown) [facility] (no value) [facility] Result panel 2378 (unknown) (no date) (unknown) [facility] (no value) [facility] Result panel 2379 (unknown) (no date) (unknown) [facility] (no value) [facility] Result panel 2380 (unknown) (no date) (unknown) [facility] (no value) [facility] Result panel 2381 (unknown) (no date) (unknown) [facility] (no value) [facility] Result panel 2382 (unknown) (no date) (unknown) [facility] (no value) [facility] Result panel 2383 (unknown) (no date) (unknown) [facility] (no value) [facility] Result panel 2384 (unknown) (no date) (unknown) [facility] (no value) [facility] Result panel 2385 (unknown) (no date) (unknown) [facility] (no value) [facility] Result panel 2386 (unknown) (no date) (unknown) [facility] (no value) [facility] Result panel 2387 (unknown) (no date) (unknown) [facility] (no value) [facility] Result panel 2388 (unknown) (no date) (unknown) [facility] (no value) [facility] Result panel 2389 (unknown) (no date) (unknown) [facility] (no value) [facility] Result panel 2390 (unknown) (no date) (unknown) [facility] (no value) [facility] Result panel 2391 (unknown) (no date) (unknown) [facility] (no value[facility] Result panel 2392 (unknown) (no date) (unknown) [facility] (no value) [facility] Result panel 2393 (unknown) (no date) (unknown) [facility] (no value) [facility] Result panel 2394 (unknown) (no date) (unknown) [facility] (no value[facility] Result panel 2395 (unknown) (no date) (unknown) [facility] (no value[facility] Result panel 2396 (unknown) (no date) (unknown) [facility] (no value) [facility] Result panel 2397 (unknown) (no date) (unknown) [facility]no value[facility] Result panel 2398 (unknown) (no date) (unknown) [facility]no value[facility] Result panel 2399 (unknown) (no date) (unknown) [facility] (no value[facility] Result panel 2400 (unknown) (no date) (unknown) [facility] (no value[facility] Result panel 2401 (unknown) (no date) (unknown) [facility] (no value[facility] Result panel 2402 (unknown) (no date) (unknown) [facility] (no value) [facility] Result panel 2403 (unknown) (no date) (unknown) [facility] (no value[facility] Result panel 2404 (unknown) (no date) (unknown) [facility] (no value) [facility] Result panel 2405 (unknown) (no date) (unknown) [facility] (no value) [facility] Result panel 2406 (unknown) (no date) (unknown) [facility] (no value) [facility] Result panel 2407 (unknown) (no date) (unknown) [facility] (no value) [facility] Result panel 2408 (unknown) (no date) (unknown) [facility] (no value) [facility] Result panel 2409 (unknown) (no date) (unknown) [facility] (no value) [facility] Result panel 2410 (unknown) (no date) (unknown) [facility] (no value) [facility] Result panel 2411 (unknown) (no date) (unknown) [facility] (no value) [facility] Result panel 2412 (unknown) (no date) (unknown) [facility] (no value) [facility] Result panel 2413 (unknown) (no date) (unknown) [facility] (no value) [facility] Result panel 2414 (unknown) (no date) (unknown) [facility] (no value) [facility] Result panel 2415 (unknown) (no date) (unknown) [facility] (no value) [facility] Result panel 2416 (unknown) (no date) (unknown) [facility] (no value) [facility] Result panel 2417 (unknown) (no date) (unknown) [facility] (no value) [facility] Result panel 2418 (unknown) (no date) (unknown) [facility] (no value) [facility] Result panel 2419 (unknown) (no date) (unknown) [facility] (no value) [facility] Result panel 2420 (unknown) (no date) (unknown) [facility] (no value) [facility] Result panel 2421 (unknown) (no date) (unknown) [facility] (no value) [facility] Result panel 2422 (unknown) (no date) (unknown) [facility] (no value) [facility] Result panel 2423 (unknown) (no date) (unknown) [facility] (no value) [facility] Result panel 2424 (unknown) (no date) (unknown) [facility] (no value) [facility] Result panel 2425 (unknown) (no date) (unknown) [facility] (no value) [facility] Result panel 2426 (unknown) (no date) (unknown) [facility] (no value) [facility] Result panel 2427 (unknown) (no date) (unknown) [facility] (no value) [facility] Result panel 2428 (unknown) (no date) (unknown) [facility] (no value) [facility] Result panel 2429 (unknown) (no date) (unknown) [facility] (no value) [facility] Result panel 2430 (unknown) (no date) (unknown) [facility] (no value) [facility] Result panel 2431 (unknown) (no date) (unknown) [facility] (no value) [facility] Result panel 2432 (unknown) (no date) (unknown) [facility] (no value) [facility] Result panel 2433 (unknown) (no date) (unknown) [facility] (no value) [facility] Result panel 2434 (unknown) (no date) (unknown) [facility] (no value) [facility] Result panel 2435 (unknown) (no date) (unknown) [facility] (no value) [facility] Result panel 2436 (unknown) (no date) (unknown) [facility] (no value) [facility] Result panel 2437 (unknown) (no date) (unknown) [facility] (no value) [facility] Result panel 2438 (unknown) (no date) (unknown) [facility] (no value) [facility] Result panel 2439 (unknown) (no date) (unknown) [facility] (no value) [facility] Result panel 2440 (unknown) (no date) (unknown) [facility] (no value) [facility] Result panel 2441 (unknown) (no date) (unknown) [facility] (no value) [facility] Result panel 2442 (unknown) (no date) (unknown) [facility] (no value) [facility] Result panel 2443 (unknown) (no date) (unknown) [facility] (no value) [facility] Result panel 2444 (unknown) (no date) (unknown) [facility] (no value) [facility] Result panel 2445 (unknown) (no date) (unknown) [facility] (no value) [facility] Result panel 2446 (unknown) (no date) (unknown) [facility] (no value) [facility] Result panel 2447 (unknown) (no date) (unknown) [facility] (no value) [facility] Result panel 2448 (unknown) (no date) (unknown) [facility] (no value) [facility] Result panel 2449 (unknown) (no date) (unknown) [facility] (no value) [facility] Result panel 2450 (unknown) (no date) (unknown) [facility] (no value) [facility] Result panel 2451 (unknown) (no date) (unknown) [facility] (no value) [facility] Result panel 2452 (unknown) (no date) (unknown) [facility] (no value) [facility] Result panel 2453 (unknown) (no date) (unknown) [facility] (no value) [facility] Result panel 2454 (unknown) (no date) (unknown) [facility] (no value) [facility] Result panel 2455 (unknown) (no date) (unknown) [facility] (no value) [facility] Result panel 2456 (unknown) (no date) (unknown) [facility] (no value) [facility] Result panel 2457 (unknown) (no date) (unknown) [facility] (no value) [facility] Result panel 2458 (unknown) (no date) (unknown) [facility] (no value) [facility] Result panel 2459 (unknown) (no date) (unknown) [facility] (no value) [facility] Result panel 2460 (unknown) (no date) (unknown) [facility] (no value) [facility] Result panel 2461 (unknown) (no date) (unknown) [facility] (no value) [facility] Result panel 2462 (unknown) (no date) (unknown) [facility] (no value) [facility] Result panel 2463 (unknown) (no date) (unknown) [facility] (no value) [facility] Result panel 2464 (unknown) (no date) (unknown) [facility] (no value) [facility] Result panel 2465 (unknown) (no date) (unknown) [facility] (no value) [facility] Result panel 2466 (unknown) (no date) (unknown) [facility] (no value) [facility] Result panel 2467 (unknown) (no date) (unknown) [facility] (no value) [facility] Result panel 2468 (unknown) (no date) (unknown) [facility] (no value) [facility] Result panel 2469 (unknown) (no date) (unknown) [facility] value[facility] Result panel 2470 (unknown) (no date) (unknown) [facility] (no value) [facility] Result panel 2471 (unknown) (no date) (unknown) [facility] (no value) [facility] Result panel 2472 (unknown) (no date) (unknown) [facility] (no value) [facility] Result panel 2473 (unknown) (no date) (unknown) [facility] (no value) [facility] Result panel 2474 (unknown) (no date) (unknown) [facility] (no value) [facility] Result panel 2475 (unknown) (no date) (unknown) [facility] (no value) [facility] Result panel 2476 (unknown) (no date) (unknown) [facility] (no value) [facility] Result panel 2477 (unknown) (no date) (unknown) [facility] (no value) [facility] Result panel 2478 (unknown) (no date) (unknown) [facility] (no value) [facility] Result panel 2479 (unknown) (no date) (unknown) [facility] (no value) [facility] Result panel 2480 (unknown) (no date) (unknown) [facility] (no value) [facility] Result panel 2481 (unknown) (no date) (unknown) [facility] (no value) [facility] Result panel 2482 (unknown) (no date) (unknown) [facility] (no value) [facility] Result panel 2483 (unknown) (no date) (unknown) [facility] (no value) [facility] Result panel 2484 (unknown) (no date) (unknown) [facility] (no value) [facility] Result panel 2485 (unknown) (no date) (unknown) [facility] (no value) [facility] Result panel 2486 (unknown) (no date) (unknown) [facility] (no value) [facility] Result panel 2487 (unknown) (no date) (unknown) [facility] (no value) [facility] Result panel 2488 (unknown) (no date) (unknown) [facility] (no value) [facility] Result panel 2489 (unknown) (no date) (unknown) [facility] (no value) [facility] Result panel 2490 (unknown) (no date) (unknown) [facility] (no value) [facility] Result panel 2491 (unknown) (no date) (unknown) [facility] (no value) [facility] Result panel 2492 (unknown) (no date) (unknown) [facility] (no value) [facility] Result panel 2493 (unknown) (no date) (unknown) [facility] (no value) [facility] Result panel 2494 (unknown) (no date) (unknown) [facility] (no value) [facility] Result panel 2495 (unknown) (no date) (unknown) [facility] (no value) [facility] Result panel 2496 (unknown) (no date) (unknown) [facility] (no value) [facility] Result panel 2497 (unknown) (no date) (unknown) [facility] (no value) [facility] Result panel 2498 (unknown) (no date) (unknown) [facility] (no value) [facility] Result panel 2499 (unknown) (no date) (unknown) [facility] (no value) [facility] Result panel 2500 (unknown) (no date) (unknown) [facility] (no value) [facility] Result panel 2501 (unknown) (no date) (unknown) [facility] (no value) [facility] Result panel 2502 (unknown) (no date) (unknown) [facility] (no value) [facility] Result panel 2503 (unknown) (no date) (unknown) [facility] (no value) [facility] Result panel 2504 (unknown) (no date) (unknown) [facility] (no value) [facility] Result panel 2505 (unknown) (no date) (unknown) [facility] (no value) [facility] Result panel 2506 (unknown) (no date) (unknown) [facility] (no value) [facility] Result panel 2507 (unknown) (no date) (unknown) [facility] (no value) [facility] Result panel 2508 (unknown) (no date) (unknown) [facility] (no value) [facility] Result panel 2509 (unknown) (no date) (unknown) [facility] (no value) [facility] Result panel 2510 (unknown) (no date) (unknown) [facility] (no value) [facility] Result panel 2511 (unknown) (no date) (unknown) [facility] (no value) [facility] Result panel 2512 (unknown) (no date) (unknown) [facility] (no value) [facility] Result panel 2513 (unknown) (no date) (unknown) [facility] (no value) [facility] Result panel 2514 (unknown) (no date) (unknown) [facility] (no value) [facility] Result panel 2515 (unknown) (no date) (unknown) [facility] (no value) [facility] Result panel 2516 (unknown) (no date) (unknown) [facility] (no value) [facility] Result panel 2517 (unknown) (no date) (unknown) [facility] (no value) [facility] Result panel 2518 (unknown) (no date) (unknown) [facility] (no value) [facility] Result panel 2519 (unknown) (no date) (unknown) [facility] (no value) [facility] Result panel 2520 (unknown) (no date) (unknown) [facility] (no value) [facility] Result panel 2521 (unknown) (no date) (unknown) [facility] (no value) [facility] Result panel 2522 (unknown) (no date) (unknown) [facility] (no value) [facility] Result panel 2523 (unknown) (no date) (unknown) [facility] (no value) [facility] Result panel 2524 (unknown) (no date) (unknown) [facility] (no value) [facility] Result panel 2525 (unknown) (no date) (unknown) [facility] (no value) [facility] Result panel 2526 (unknown) (no date) (unknown) [facility] (no value) [facility] Result panel 2527 (unknown) (no date) (unknown) [facility]no value[facility] Result panel 2528 (unknown) (no date) (unknown) [facility] (no value) [facility] Result panel 2529 (unknown) (no date) (unknown) [facility] (no value) [facility] Result panel 2530 (unknown) (no date) (unknown) [facility] (no value) [facility] Result panel 2531 (unknown) (no date) (unknown) [facility] (no value) [facility] Result panel 2532 (unknown) (no date) (unknown) [facility] (no value) [facility] Result panel 2533 (unknown) (no date) (unknown) [facility] (no value) [facility] Result panel 2534 (unknown) (no date) (unknown) [facility] (no value) [facility] Result panel 2535 (unknown) (no date) (unknown) [facility] (no value) [facility] Result panel 2536 (unknown) (no date) (unknown) [facility] (no value) [facility] Result panel 2537 (unknown) (no date) (unknown) [facility] (no value) [facility] Result panel 2538 (unknown) (no date) (unknown) [facility] (no value) [facility] Result panel 2539 (unknown) (no date) (unknown) [facility] (no value) [facility] Result panel 2540 (unknown) (no date) (unknown) [facility] (no value) [facility] Result panel 2541 (unknown) (no date) (unknown) [facility] (no value) [facility] Result panel 2542 (unknown) (no date) (unknown) [facility] (no value) [facility] Result panel 2543 (unknown) (no date) (unknown) [facility] (no value) [facility] Result panel 2544 (unknown) (no date) (unknown) [facility] (no value) [facility] Result panel 2545 (unknown) (no date) (unknown) [facility] (no value) [facility] Result panel 2546 (unknown) (no date) (unknown) [facility] (no value) [facility] Result panel 2547 (unknown) (no date) (unknown) [facility] (no value) [facility] Result panel 2548 (unknown) (no date) (unknown) [facility] (no value) [facility] Result panel 2549 (unknown) (no date) (unknown) [facility] (no value) [facility] Result panel 2550 (unknown) (no date) (unknown) [facility] (no value) [facility] Result panel 2551 (unknown) (no date) (unknown) [facility] (no value) [facility] Result panel 2552 (unknown) (no date) (unknown) [facility] (no value) [facility] Result panel 2553 (unknown) (no date) (unknown) [facility] (no value) [facility] Result panel 2554 (unknown) (no date) (unknown) [facility] (no value) [facility] Result panel 2555 (unknown) (no date) (unknown) [facility] (no value) [facility] Result panel 2556 (unknown) (no date) (unknown) [facility] (no value) [facility] Result panel 2557 (unknown) (no date) (unknown) [facility] (no value) [facility] Result panel 2558 (unknown) (no date) (unknown) [facility] (no value) [facility] Result panel 2559 (unknown) (no date) (unknown) [facility] (no value) [facility] Result panel 2560 (unknown) (no date) (unknown) [facility] (no value) [facility] Result panel 2561 (unknown) (no date) (unknown) [facility] (no value) [facility] Result panel 2562 (unknown) (no date) (unknown) [facility] (no value) [facility] Result panel 2563 (unknown) (no date) (unknown) [facility] (no value) [facility] Result panel 2564 (unknown) (no date) (unknown) [facility] (no value) [facility] Result panel 2565 (unknown) (no date) (unknown) [facility] (no value) [facility] Result panel 2566 (unknown) (no date) (unknown) [facility] (no value) [facility] Result panel 2567 (unknown) (no date) (unknown) [facility] (no value) [facility] Result panel 2568 (unknown) (no date) (unknown) [facility] (no value) [facility] Result panel 2569 (unknown) (no date) (unknown) [facility] (no value) [facility] Result panel 2570 (unknown) (no date) (unknown) [facility] (no value) [facility] Result panel 2571 (unknown) (no date) (unknown) [facility] (no value) [facility] Result panel 2572 (unknown) (no date) (unknown) [facility] (no value) [facility] Result panel 2573 (unknown) (no date) (unknown) [facility] (no value) [facility] Result panel 2574 (unknown) (no date) (unknown) [facility] (no value) [facility] Result panel 2575 (unknown) (no date) (unknown) [facility] (no value) [facility] Result panel 2576 (unknown) (no date) (unknown) [facility] (no value) [facility] Result panel 2577 (unknown) (no date) (unknown) [facility] (no value) [facility] Result panel 2578 (unknown) (no date) (unknown) [facility] (no value) [facility] Result panel 2579 (unknown) (no date) (unknown) [facility] (no value) [facility] Result panel 2580 (unknown) (no date) (unknown) [facility] (no value) [facility] Result panel 2581 (unknown) (no date) (unknown) [facility] (no value) [facility] Result panel 2582 (unknown) (no date) (unknown) [facility] (no value) [facility] Result panel 2583 (unknown) (no date) (unknown) [facility] (no value) [facility] Result panel 2584 (unknown) (no date) (unknown) [facility] (no value) [facility] Result panel 2585 (unknown) (no date) (unknown) [facility] (no value) [facility] Result panel 2586 (unknown) (no date) (unknown) [facility] (no value) [facility] Result panel 2587 (unknown) (no date) (unknown) [facility] (no value) [facility] Result panel 2588 (unknown) (no date) (unknown) [facility] (no value) [facility] Result panel 2589 (unknown) (no date) (unknown) [facility] (no value) [facility] Result panel 2590 (unknown) (no date) (unknown) [facility] (no value) [facility] Result panel 2591 (unknown) (no date) (unknown) [facility] (no value) [facility] Result panel 2592 (unknown) (no date) (unknown) [facility] (no value) [facility] Result panel 2593 (unknown) (no date) (unknown) [facility] (no value) [facility] Result panel 2594 (unknown) (no date) (unknown) [facility] (no value) [facility] Result panel 2595 (unknown) (no date) (unknown) [facility] (no value) [facility] Result panel 2596 (unknown) (no date) (unknown) [facility] (no value) [facility] Result panel 2597 (unknown) (no date) (unknown) [facility] (no value) [facility] Result panel 2598 (unknown) (no date) (unknown) [facility] (no value) [facility] Result panel 2599 (unknown) (no date) (unknown) [facility] (no value) [facility] Result panel 2600 (unknown) (no date) (unknown) [facility] (no value) [facility] Result panel 2601 (unknown) (no date) (unknown) [facility] (no value) [facility] Result panel 2602 (unknown) (no date) (unknown) [facility] (no value) [facility] Result panel 2603 (unknown) (no date) (unknown) [facility] (no value) [facility] Result panel 2604 (unknown) (no date) (unknown) [facility] (no value) [facility] Result panel 2605 (unknown) (no date) (unknown) [facility] (no value) [facility] Result panel 2606 (unknown) (no date) (unknown) [facility] (no value) [facility] Result panel 2607 (unknown) (no date) (unknown) [facility] (no value) [facility] Result panel 2608 (unknown) (no date) (unknown) [facility] (no value) [facility] Result panel 2609 (unknown) (no date) (unknown) [facility] (no value) [facility] Result panel 2610 (unknown) (no date) (unknown) [facility] (no value) [facility] Result panel 2611 (unknown) (no date) (unknown) [facility] (no value) [facility] Result panel 2612 (unknown) (no date) (unknown) [facility] (no value) [facility] Result panel 2613 (unknown) (no date) (unknown) [facility] (no value) [facility] Result panel 2614 (unknown) (no date) (unknown) [facility] (no value) [facility] Result panel 2615 (unknown) (no date) (unknown) [facility] (no value) [facility] Result panel 2616 (unknown) (no date) (unknown) [facility] (no value) [facility] Result panel 2617 (unknown) (no date) (unknown) [facility] (no value) [facility] Result panel 2618 (unknown) (no date) (unknown) [facility] (no value) [facility] Result panel 2619 (unknown) (no date) (unknown) [facility] (no value) [facility] Result panel 2620 (unknown) (no date) (unknown) [facility] (no value) [facility] Result panel 2621 (unknown) (no date) (unknown) [facility] (no value) [facility] Result panel 2622 (unknown) (no date) (unknown) [facility] (no value) [facility] Result panel 2623 (unknown) (no date) (unknown) [facility] (no value) [facility] Result panel 2624 (unknown) (no date) (unknown) [facility] (no value) [facility] Result panel 2625 (unknown) (no date) (unknown) [facility] (no value) [facility] Result panel 2626 (unknown) (no date) (unknown) [facility] (no value) [facility] Result panel 2627 (unknown) (no date) (unknown) [facility] (no value) [facility] Result panel 2628 (unknown) (no date) (unknown) [facility] (no value) [facility] Result panel 2629 (unknown) (no date) (unknown) [facility] (no value) [facility] Result panel 2630 (unknown) (no date) (unknown) [facility] (no value) [facility] Result panel 2631 (unknown) (no date) (unknown) [facility] (no value) [facility] Result panel 2632 (unknown) (no date) (unknown) [facility] (no value) [facility] Result panel 2633 (unknown) (no date) (unknown) [facility] (no value) [facility] Result panel 2634 (unknown) (no date) (unknown) [facility] (no value) [facility] Result panel 2635 (unknown) (no date) (unknown) [facility] (no value) [facility] Result panel 2636 (unknown) (no date) (unknown) [facility] (no value) [facility] Result panel 2637 (unknown) (no date) (unknown) [facility] (no value) [facility] Result panel 2638 (unknown) (no date) (unknown) [facility] value[facility] Result panel 2639 (unknown) (no date) (unknown) [facility] (no value) [facility] Result panel 2640 (unknown) (no date) (unknown) [facility] (no value) [facility] Result panel 2641 (unknown) (no date) (unknown) [facility] (no value) [facility] Result panel 2642 (unknown) (no date) (unknown) [facility] (no value) [facility] Result panel 2643 (unknown) (no date) (unknown) [facility] (no value) [facility] Result panel 2644 (unknown) (no date) (unknown) [facility] (no value) [facility] Result panel 2645 (unknown) (no date) (unknown) [facility] (no value) [facility] Result panel 2646 (unknown) (no date) (unknown) [facility] (no value) [facility] Result panel 2647 (unknown) (no date) (unknown) [facility] (no value) [facility] Result panel 2648 (unknown) (no date) (unknown) [facility] (no value) [facility] Result panel 2649 (unknown) (no date) (unknown) [facility] (no value) [facility] Result panel 2650 (unknown) (no date) (unknown) [facility] (no value) [facility] Result panel 2651 (unknown) (no date) (unknown) [facility] (no value) [facility] Result panel 2652 (unknown) (no date) (unknown) [facility] (no value) [facility] Result panel 2653 (unknown) (no date) (unknown) [facility] (no value) [facility] Result panel 2654 (unknown) (no date) (unknown) [facility] (no value) [facility] Result panel 2655 (unknown) (no date) (unknown) [facility] (no value) [facility] Result panel 2656 (unknown) (no date) (unknown) [facility] (no value) [facility] Result panel 2657 (unknown) (no date) (unknown) [facility] (no value) [facility] Result panel 2658 (unknown) (no date) (unknown) [facility] (no value) [facility] Result panel 2659 (unknown) (no date) (unknown) [facility] (no value) [facility] Result panel 2660 (unknown) (no date) (unknown) [facility] (no value) [facility] Result panel 2661 (unknown) (no date) (unknown) [facility] (no value) [facility] Result panel 2662 (unknown) (no date) (unknown) [facility] (no value) [facility] Result panel 2663 (unknown) (no date) (unknown) [facility] (no value) [facility] Result panel 2664 (unknown) (no date) (unknown) [facility] (no value) [facility] Result panel 2665 (unknown) (no date) (unknown) [facility] (no value) [facility] Result panel 2666 (unknown) (no date) (unknown) [facility] (no value) [facility] Result panel 2667 (unknown) (no date) (unknown) [facility] (no value) [facility] Result panel 2668 (unknown) (no date) (unknown) [facility] (no value) [facility] Result panel 2669 (unknown) (no date) (unknown) [facility] (no value) [facility] Result panel 2670 (unknown) (no date) (unknown) [facility] (no value) [facility] Result panel 2671 (unknown) (no date) (unknown) [facility] (no value) [facility] Result panel 2672 (unknown) (no date) (unknown) [facility] (no value) [facility] Result panel 2673 (unknown) (no date) (unknown) [facility] (no value) [facility] Result panel 2674 (unknown) (no date) (unknown) [facility] (no value) [facility] Result panel 2675 (unknown) (no date) (unknown) [facility] (no value) [facility] Result panel 2676 (unknown) (no date) (unknown) [facility] (no value) [facility] Result panel 2677 (unknown) (no date) (unknown) [facility] (no value) [facility] Result panel 2678 (unknown) (no date) (unknown) [facility] (no value) [facility] Result panel 2679 (unknown) (no date) (unknown) [facility] (no value) [facility] Result panel 2680 (unknown) (no date) (unknown) [facility] (no value) [facility] Result panel 2681 (unknown) (no date) (unknown) [facility] (no value) [facility] Result panel 2682 (unknown) (no date) (unknown) [facility] (no value) [facility] Result panel 2683 (unknown) (no date) (unknown) [facility] (no value) [facility] Result panel 2684 (unknown) (no date) (unknown) [facility] (no value) [facility] Result panel 2685 (unknown) (no date) (unknown) [facility] (no value) [facility] Result panel 2686 (unknown) (no date) (unknown) [facility] (no value) [facility] Result panel 2687 (unknown) (no date) (unknown) [facility] (no value) [facility] Result panel 2688 (unknown) (no date) (unknown) [facility] (no value) [facility] Result panel 2689 (unknown) (no date) (unknown) [facility] (no value) [facility] Result panel 2690 (unknown) (no date) (unknown) [facility] (no value) [facility] Result panel 2691 (unknown) (no date) (unknown) [facility] (no value) [facility] Result panel 2692 (unknown) (no date) (unknown) [facility] (no value) [facility] Result panel 2693 (unknown) (no date) (unknown) [facility] (no value) [facility] Result panel 2694 (unknown) (no date) (unknown) [facility] (no value) [facility] Result panel 2695 (unknown) (no date) (unknown) [facility] (no value) [facility] Result panel 2696 (unknown) (no date) (unknown) [facility] (no value) [facility] Result panel 2697 (unknown) (no date) (unknown) [facility] (no value) [facility] Result panel 2698 (unknown) (no date) (unknown) [facility] (no value) [facility] Result panel 2699 (unknown) (no date) (unknown) [facility] (no value) [facility] Result panel 2700 (unknown) (no date) (unknown) [facility] (no value) [facility] Result panel 2701 (unknown) (no date) (unknown) [facility] (no value) [facility] Result panel 2702 (unknown) (no date) (unknown) [facility] (no value) [facility] Result panel 2703 (unknown) (no date) (unknown) [facility] (no value) [facility] Result panel 2704 (unknown) (no date) (unknown) [facility] (no value) [facility] Result panel 2705 (unknown) (no date) (unknown) [facility] (no value) [facility] Result panel 2706 (unknown) (no date) (unknown) [facility] (no value) [facility] Result panel 2707 (unknown) (no date) (unknown) [facility] (no value) [facility] Result panel 2708 (unknown) (no date) (unknown) [facility] (no value) [facility] Result panel 2709 (unknown) (no date) (unknown) [facility] (no value) [facility] Result panel 2710 (unknown) (no date) (unknown) [facility] (no value) [facility] Result panel 2711 (unknown) (no date) (unknown) [facility] (no value) [facility] Result panel 2712 (unknown) (no date) (unknown) [facility] (no value) [facility] Result panel 2713 (unknown) (no date) (unknown) [facility] (no value) [facility] Result panel 2714 (unknown) (no date) (unknown) [facility] (no value) [facility] Result panel 2715 (unknown) (no date) (unknown) [facility] (no value) [facility] Result panel 2716 (unknown) (no date) (unknown) [facility] (no value) [facility] Result panel 2717 (unknown) (no date) (unknown) [facility] (no value) [facility] Result panel 2718 (unknown) (no date) (unknown) [facility] (no value) [facility] Result panel 2719 (unknown) (no date) (unknown) [facility] (no value) [facility] Result panel 2720 (unknown) (no date) (unknown) [facility] (no value) [facility] Result panel 2721 (unknown) (no date) (unknown) [facility] (no value) [facility] Result panel 2722 (unknown) (no date) (unknown) [facility] (no value) [facility] Result panel 2723 (unknown) (no date) (unknown) [facility] (no value) [facility] Result panel 2724 (unknown) (no date) (unknown) [facility] (no value) [facility] Result panel 2725 (unknown) (no date) (unknown) [facility] (no value) [facility] Result panel 2726 (unknown) (no date) (unknown) [facility] (no value) [facility] Result panel 2727 (unknown) (no date) (unknown) [facility] (no value) [facility] Result panel 2728 (unknown) (no date) (unknown) [facility] (no value) [facility] Result panel 2729 (unknown) (no date) (unknown) [facility] (no value) [facility] Result panel 2730 (unknown) (no date) (unknown) [facility] (no value) [facility] Result panel 2731 (unknown) (no date) (unknown) [facility] (no value) [facility] Result panel 2732 (unknown) (no date) (unknown) [facility] (no value) [facility] Result panel 2733 (unknown) (no date) (unknown) [facility] (no value) [facility] Result panel 2734 (unknown) (no date) (unknown) [facility] (no value) [facility] Result panel 2735 (unknown) (no date) (unknown) [facility] (no value) [facility] Result panel 2736 (unknown) (no date) (unknown) [facility] (no value) [facility] Result panel 2737 (unknown) (no date) (unknown) [facility] (no value) [facility] Result panel 2738 (unknown) (no date) (unknown) [facility] (no value) [facility] Result panel 2739 (unknown) (no date) (unknown) [facility] (no value) [facility] Result panel 2740 (unknown) (no date) (unknown) [facility] (no value) [facility] Result panel 2741 (unknown) (no date) (unknown) [facility] (no value) [facility] Result panel 2742 (unknown) (no date) (unknown) [facility] (no value) [facility] Result panel 2743 (unknown) (no date) (unknown) [facility] (no value) [facility] Result panel 2744 (unknown) (no date) (unknown) [facility] (no value) [facility] Result panel 2745 (unknown) (no date) (unknown) [facility] (no value) [facility] Result panel 2746 (unknown) (no date) (unknown) [facility] (no value) [facility] Result panel 2747 (unknown) (no date) (unknown) [facility] (no value) [facility] Result panel 2748 (unknown) (no date) (unknown) [facility] (no value) [facility] Result panel 2749 (unknown) (no date) (unknown) [facility] (no value) [facility] Result panel 2750 (unknown) (no date) (unknown) [facility] (no value) [facility] Result panel 2751 (unknown) (no date) (unknown) [facility] (no value) [facility] Result panel 2752 (unknown) (no date) (unknown) [facility] (no value) [facility] Result panel 2753 (unknown) (no date) (unknown) [facility] (no value) [facility] Result panel 2754 (unknown) (no date) (unknown) [facility] (no value) [facility] Result panel 2755 (unknown) (no date) (unknown) [facility] (no value) [facility] Result panel 2756 (unknown) (no date) (unknown) [facility] (no value) [facility] Result panel 2757 (unknown) (no date) (unknown) [facility] (no value) [facility] Result panel 2758 (unknown) (no date) (unknown) [facility] (no value) [facility] Result panel 2759 (unknown) (no date) (unknown) [facility] (no value) [facility] Result panel 2760 (unknown) (no date) (unknown) [facility] (no value) [facility] Result panel 2761 (unknown) (no date) (unknown) [facility] (no value) [facility] Result panel 2762 (unknown) (no date) (unknown) [facility] (no value) [facility] Result panel 2763 (unknown) (no date) (unknown) [facility] (no value) [facility] Result panel 2764 (unknown) (no date) (unknown) [facility] (no value) [facility] Result panel 2765 (unknown) (no date) (unknown) [facility] (no value) [facility] Result panel 2766 (unknown) (no date) (unknown) [facility] (no value) [facility] Result panel 2767 (unknown) (no date) (unknown) [facility] (no value) [facility] Result panel 2768 (unknown) (no date) (unknown) [facility] (no value) [facility] Result panel 2769 (unknown) (no date) (unknown) [facility] (no value) [facility] Result panel 2770 (unknown) (no date) (unknown) [facility] (no value) [facility] Result panel 2771 (unknown) (no date) (unknown) [facility] (no value) [facility] Result panel 2772 (unknown) (no date) (unknown) [facility] (no value) [facility] Result panel 2773 (unknown) (no date) (unknown) [facility] (no value) [facility] Result panel 2774 (unknown) (no date) (unknown) [facility] (no value) [facility] Result panel 2775 (unknown) (no date) (unknown) [facility] (no value) [facility] Result panel 2776 (unknown) (no date) (unknown) [facility] (no value) [facility] Result panel 2777 (unknown) (no date) (unknown) [facility] (no value) [facility] Result panel 2778 (unknown) (no date) (unknown) [facility] (no value) [facility] Result panel 2779 (unknown) (no date) (unknown) [facility] (no value) [facility] Result panel 2780 (unknown) (no date) (unknown) [facility] (no value) [facility] Result panel 2781 (unknown) (no date) (unknown) [facility] (no value) [facility] Result panel 2782 (unknown) (no date) (unknown) [facility] (no value) [facility] Result panel 2783 (unknown) (no date) (unknown) [facility] (no value) [facility] Result panel 2784 (unknown) (no date) (unknown) [facility] (no value) [facility] Result panel 2785 (unknown) (no date) (unknown) [facility] (no value) [facility] Result panel 2786 (unknown) (no date) (unknown) [facility] (no value) [facility] Result panel 2787 (unknown) (no date) (unknown) [facility] (no value) [facility] Result panel 2788 (unknown) (no date) (unknown) [facility] (no value) [facility] Result panel 2789 (unknown) (no date) (unknown) [facility] (no value) [facility] Result panel 2790 (unknown) (no date) (unknown) [facility] (no value) [facility] Result panel 2791 (unknown) (no date) (unknown) [facility] (no value) [facility] Result panel 2792 (unknown) (no date) (unknown) [facility] (no value) [facility] Result panel 2793 (unknown) (no date) (unknown) [facility] (no value) [facility] Result panel 2794 (unknown) (no date) (unknown) [facility] (no value) [facility] Result panel 2795 (unknown) (no date) (unknown) [facility] (no value) [facility] Result panel 2796 (unknown) (no date) (unknown) [facility] (no value) [facility] Result panel 2797 (unknown) (no date) (unknown) [facility] (no value) [facility] Result panel 2798 (unknown) (no date) (unknown) [facility] (no value) [facility] Result panel 2799 (unknown) (no date) (unknown) [facility] (no value) [facility] Result panel 2800 (unknown) (no date) (unknown) [facility] (no value) [facility] Result panel 2801 (unknown) (no date) (unknown) [facility] (no value) [facility] Result panel 2802 (unknown) (no date) (unknown) [facility] (no value) [facility] Result panel 2803 (unknown) (no date) (unknown) [facility] (no value) [facility] Result panel 2804 (unknown) (no date) (unknown) [facility] (no value) [facility] Result panel 2805 (unknown) (no date) (unknown) [facility] (no value) [facility] Result panel 2806 (unknown) (no date) (unknown) [facility] (no value) [facility] Result panel 2807 (unknown) (no date) (unknown) [facility] value[facility] Result panel 2808 (unknown) (no date) (unknown) [facility] (no value) [facility] Result panel 2809 (unknown) (no date) (unknown) [facility] (no value) [facility] Result panel 2810 (unknown) (no date) (unknown) [facility] (no value) [facility] Result panel 2811 (unknown) (no date) (unknown) [facility] (no value) [facility] Result panel 2812 (unknown) (no date) (unknown) [facility] (no value) [facility] Result panel 2813 (unknown) (no date) (unknown) [facility] (no value) [facility] Result panel 2814 (unknown) (no date) (unknown) [facility] (no value) [facility] Result panel 2815 (unknown) (no date) (unknown) [facility] (no value) [facility] Result panel 2816 (unknown) (no date) (unknown) [facility] (no value) [facility] Result panel 2817 (unknown) (no date) (unknown) [facility] (no value) [facility] Result panel 2818 (unknown) (no date) (unknown) [facility] (no value) [facility] Result panel 2819 (unknown) (no date) (unknown) [facility] (no value) [facility] Result panel 2820 (unknown) (no date) (unknown) [facility] (no value) [facility] Result panel 2821 (unknown) (no date) (unknown) [facility] (no value) [facility] Result panel 2822 (unknown) (no date) (unknown) [facility] (no value) [facility] Result panel 2823 (unknown) (no date) (unknown) [facility] (no value) [facility] Result panel 2824 (unknown) (no date) (unknown) [facility] (no value) [facility] Result panel 2825 (unknown) (no date) (unknown) [facility] (no value) [facility] Result panel 2826 (unknown) (no date) (unknown) [facility] (no value) [facility] Result panel 2827 (unknown) (no date) (unknown) [facility] (no value) [facility] Result panel 2828 (unknown) (no date) (unknown) [facility] (no value) [facility] Result panel 2829 (unknown) (no date) (unknown) [facility] (no value) [facility] Result panel 2830 (unknown) (no date) (unknown) [facility] (no value) [facility] Result panel 2831 (unknown) (no date) (unknown) [facility] (no value) [facility] Result panel 2832 (unknown) (no date) (unknown) [facility] (no value) [facility] Result panel 2833 (unknown) (no date) (unknown) [facility] (no value) [facility] Result panel 2834 (unknown) (no date) (unknown) [facility] (no value) [facility] Result panel 2835 (unknown) (no date) (unknown) [facility] (no value) [facility] Result panel 2836 (unknown) (no date) (unknown) [facility] (no value) [facility] Result panel 2837 (unknown) (no date) (unknown) [facility] (no value) [facility] Result panel 2838 (unknown) (no date) (unknown) [facility] (no value) [facility] Result panel 2839 (unknown) (no date) (unknown) [facility] (no value) [facility] Result panel 2840 (unknown) (no date) (unknown) [facility] (no value) [facility] Result panel 2841 (unknown) (no date) (unknown) [facility] (no value) [facility] Result panel 2842 (unknown) (no date) (unknown) [facility] (no value) [facility] Result panel 2843 (unknown) (no date) (unknown) [facility] (no value) [facility] Result panel 2844 (unknown) (no date) (unknown) [facility] (no value) [facility] Result panel 2845 (unknown) (no date) (unknown) [facility] (no value) [facility] Result panel 2846 (unknown) (no date) (unknown) [facility] (no value) [facility] Result panel 2847 (unknown) (no date) (unknown) [facility] (no value) [facility] Result panel 2848 (unknown) (no date) (unknown) [facility] (no value) [facility] Result panel 2849 (unknown) (no date) (unknown) [facility] (no value) [facility] Result panel 2850 (unknown) (no date) (unknown) [facility] (no value) [facility] Result panel 2851 (unknown) (no date) (unknown) [facility] (no value) [facility] Result panel 2852 (unknown) (no date) (unknown) [facility] (no value) [facility] Result panel 2853 (unknown) (no date) (unknown) [facility] (no value) [facility] Result panel 2854 (unknown) (no date) (unknown) [facility] (no value) [facility] Result panel 2855 (unknown) (no date) (unknown) [facility] (no value) [facility] Result panel 2856 (unknown) (no date) (unknown) [facility] (no value) [facility] Result panel 2857 (unknown) (no date) (unknown) [facility] (no value) [facility] Result panel 2858 (unknown) (no date) (unknown) [facility] (no value) [facility] Result panel 2859 (unknown) (no date) (unknown) [facility] (no value) [facility] Result panel 2860 (unknown) (no date) (unknown) [facility] (no value) [facility] Result panel 2861 (unknown) (no date) (unknown) [facility] (no value) [facility] Result panel 2862 (unknown) (no date) (unknown) [facility] (no value) [facility] Result panel 2863 (unknown) (no date) (unknown) [facility] (no value) [facility] Result panel 2864 (unknown) (no date) (unknown) [facility] (no value) [facility] Result panel 2865 (unknown) (no date) (unknown) [facility] (no value) [facility] Result panel 2866 (unknown) (no date) (unknown) [facility] (no value) [facility] Result panel 2867 (unknown) (no date) (unknown) [facility] (no value) [facility] Result panel 2868 (unknown) (no date) (unknown) [facility] (no value) [facility] Result panel 2869 (unknown) (no date) (unknown) [facility] (no value) [facility] Result panel 2870 (unknown) (no date) (unknown) [facility] (no value) [facility] Result panel 2871 (unknown) (no date) (unknown) [facility] (no value) [facility] Result panel 2872 (unknown) (no date) (unknown) [facility] (no value) [facility] Result panel 2873 (unknown) (no date) (unknown) [facility] (no value) [facility] Result panel 2874 (unknown) (no date) (unknown) [facility] (no value) [facility] Result panel 2875 (unknown) (no date) (unknown) [facility] (no value) [facility] Result panel 2876 (unknown) (no date) (unknown) [facility] (no value) [facility] Result panel 2877 (unknown) (no date) (unknown) [facility] (no value) [facility] Result panel 2878 (unknown) (no date) (unknown) [facility] (no value) [facility] Result panel 2879 (unknown) (no date) (unknown) [facility] (no value) [facility] Result panel 2880 (unknown) (no date) (unknown) [facility] (no value) [facility] Result panel 2881 (unknown) (no date) (unknown) [facility] (no value) [facility] Result panel 2882 (unknown) (no date) (unknown) [facility] (no value) [facility] Result panel 2883 (unknown) (no date) (unknown) [facility] (no value) [facility] Result panel 2884 (unknown) (no date) (unknown) [facility] (no value) [facility] Result panel 2885 (unknown) (no date) (unknown) [facility] (no value) [facility] Result panel 2886 (unknown) (no date) (unknown) [facility] (no value) [facility] Result panel 2887 (unknown) (no date) (unknown) [facility] (no value) [facility] Result panel 2888 (unknown) (no date) (unknown) [facility] (no value) [facility] Result panel 2889 (unknown) (no date) (unknown) [facility] (no value) [facility] Result panel 2890 (unknown) (no date) (unknown) [facility] (no value) [facility] Result panel 2891 (unknown) (no date) (unknown) [facility] (no value) [facility] Result panel 2892 (unknown) (no date) (unknown) [facility] (no value) [facility] Result panel 2893 (unknown) (no date) (unknown) [facility] (no value) [facility] Result panel 2894 (unknown) (no date) (unknown) [facility] (no value) [facility] Result panel 2895 (unknown) (no date) (unknown) [facility] (no value) [facility] Result panel 2896 (unknown) (no date) (unknown) [facility] (no value) [facility] Result panel 2897 (unknown) (no date) (unknown) [facility] (no value) [facility] Result panel 2898 (unknown) (no date) (unknown) [facility] (no value) [facility] Result panel 2899 (unknown) (no date) (unknown) [facility] (no value) [facility] Result panel 2900 (unknown) (no date) (unknown) [facility] (no value) [facility] Result panel 2901 (unknown) (no date) (unknown) [facility] (no value) [facility] Result panel 2902 (unknown) (no date) (unknown) [facility] (no value) [facility] Result panel 2903 (unknown) (no date) (unknown) [facility] (no value) [facility] Result panel 2904 (unknown) (no date) (unknown) [facility] (no value[facility] Result panel 2905 (unknown) (no date) (unknown) [facility] (no value) [facility] Result panel 2906 (unknown) (no date) (unknown) [facility] (no value) [facility] Result panel 2907 (unknown) (no date) (unknown) [facility] (no value) [facility] Result panel 2908 (unknown) (no date) (unknown) [facility] (no value) [facility] Result panel 2909 (unknown) (no date) (unknown) [facility] (no value) [facility] Result panel 2910 (unknown) (no date) (unknown) [facility] (no value) [facility] Result panel 2911 (unknown) (no date) (unknown) [facility] (no value) [facility] Result panel 2912 (unknown) (no date) (unknown) [facility] (no value) [facility] Result panel 2913 (unknown) (no date) (unknown) [facility] (no value) [facility] Result panel 2914 (unknown) (no date) (unknown) [facility] (no value) [facility] Result panel 2915 (unknown) (no date) (unknown) [facility] (no value) [facility] Result panel 2916 (unknown) (no date) (unknown) [facility] (no value) [facility] Result panel 2917 (unknown) (no date) (unknown) [facility] (no value) [facility] Result panel 2918 (unknown) (no date) (unknown) [facility] (no value) [facility] Result panel 2919 (unknown) (no date) (unknown) [facility] (no value) [facility] Result panel 2920 (unknown) (no date) (unknown) [facility] (no value) [facility] Result panel 2921 (unknown) (no date) (unknown) [facility] (no value) [facility] Result panel 2922 (unknown) (no date) (unknown) [facility] (no value) [facility] Result panel 2923 (unknown) (no date) (unknown) [facility] (no value) [facility] Result panel 2924 (unknown) (no date) (unknown) [facility] (no value) [facility] Result panel 2925 (unknown) (no date) (unknown) [facility] (no value) [facility] Result panel 2926 (unknown) (no date) (unknown) [facility] (no value) [facility] Result panel 2927 (unknown) (no date) (unknown) [facility] (no value) [facility] Result panel 2928 (unknown) (no date) (unknown) [facility] (no value) [facility] Result panel 2929 (unknown) (no date) (unknown) [facility] (no value) [facility] Result panel 2930 (unknown) (no date) (unknown) [facility] (no value) [facility] Result panel 2931 (unknown) (no date) (unknown) [facility] (no value) [facility] Result panel 2932 (unknown) (no date) (unknown) [facility] (no value) [facility] Result panel 2933 (unknown) (no date) (unknown) [facility] (no value) [facility] Result panel 2934 (unknown) (no date) (unknown) [facility] (no value) [facility] Result panel 2935 (unknown) (no date) (unknown) [facility] (no value) [facility] Result panel 2936 (unknown) (no date) (unknown) [facility] (no value) [facility] Result panel 2937 (unknown) (no date) (unknown) [facility] (no value) [facility] Result panel 2938 (unknown) (no date) (unknown) [facility] (no value) [facility] Result panel 2939 (unknown) (no date) (unknown) [facility] (no value) [facility] Result panel 2940 (unknown) (no date) (unknown) [facility] (no value) [facility] Result panel 2941 (unknown) (no date) (unknown) [facility] (no value) [facility] Result panel 2942 (unknown) (no date) (unknown) [facility] (no value) [facility] Result panel 2943 (unknown) (no date) (unknown) [facility] (no value) [facility] Result panel 2944 (unknown) (no date) (unknown) [facility] (no value) [facility] Result panel 2945 (unknown) (no date) (unknown) [facility] (no value) [facility] Result panel 2946 (unknown) (no date) (unknown) [facility] (no value) [facility] Result panel 2947 (unknown) (no date) (unknown) [facility] (no value) [facility] Result panel 2948 (unknown) (no date) (unknown) [facility] (no value) [facility] Result panel 2949 (unknown) (no date) (unknown) [facility] (no value) [facility] Result panel 2950 (unknown) (no date) (unknown) [facility] (no value) [facility] Result panel 2951 (unknown) (no date) (unknown) [facility] (no value) [facility] Result panel 2952 (unknown) (no date) (unknown) [facility] (no value) [facility] Result panel 2953 (unknown) (no date) (unknown) [facility] (no value) [facility] Result panel 2954 (unknown) (no date) (unknown) [facility] (no value) [facility] Result panel 2955 (unknown) (no date) (unknown) [facility] (no value) [facility] Result panel 2956 (unknown) (no date) (unknown) [facility] (no value) [facility] Result panel 2957 (unknown) (no date) (unknown) [facility] (no value) [facility] Result panel 2958 (unknown) (no date) (unknown) [facility] (no value) [facility] Result panel 2959 (unknown) (no date) (unknown) [facility] (no value) [facility] Result panel 2960 (unknown) (no date) (unknown) [facility] (no value) [facility] Result panel 2961 (unknown) (no date) (unknown) [facility] (no value) [facility] Result panel 2962 (unknown) (no date) (unknown) [facility] (no value) [facility] Result panel 2963 (unknown) (no date) (unknown) [facility] (no value) [facility] Result panel 2964 (unknown) (no date) (unknown) [facility] (no value) [facility] Result panel 2965 (unknown) (no date) (unknown) [facility] (no value) [facility] Result panel 2966 (unknown) (no date) (unknown) [facility] (no value) [facility] Result panel 2967 (unknown) (no date) (unknown) [facility] (no value) [facility] Result panel 2968 (unknown) (no date) (unknown) [facility] (no value) [facility] Result panel 2969 (unknown) (no date) (unknown) [facility] (no value) [facility] Result panel 2970 (unknown) (no date) (unknown) [facility] (no value) [facility] Result panel 2971 (unknown) (no date) (unknown) [facility] (no value) [facility] Result panel 2972 (unknown) (no date) (unknown) [facility] (no value) [facility] Result panel 2973 (unknown) (no date) (unknown) [facility] (no value) [facility] Result panel 2974 (unknown) (no date) (unknown) [facility] (no value) [facility] Result panel 2975 (unknown) (no date) (unknown) [facility] (no value) [facility] Result panel 2976 (unknown) (no date) (unknown) [facility] value[facility] Result panel 2977 (unknown) (no date) (unknown) [facility] (no value) [facility] Result panel 2978 (unknown) (no date) (unknown) [facility] (no value) [facility] Result panel 2979 (unknown) (no date) (unknown) [facility] (no value) [facility] Result panel 2980 (unknown) (no date) (unknown) [facility] (no value) [facility] Result panel 2981 (unknown) (no date) (unknown) [facility] (no value) [facility] Result panel 2982 (unknown) (no date) (unknown) [facility] (no value) [facility] Result panel 2983 (unknown) (no date) (unknown) [facility] (no value) [facility] Result panel 2984 (unknown) (no date) (unknown) [facility] (no value) [facility] Result panel 2985 (unknown) (no date) (unknown) [facility] (no value) [facility] Result panel 2986 (unknown) (no date) (unknown) [facility] (no value) [facility] Result panel 2987 (unknown) (no date) (unknown) [facility] (no value) [facility] Result panel 2988 (unknown) (no date) (unknown) [facility] (no value) [facility] Result panel 2989 (unknown) (no date) (unknown) [facility] (no value) [facility] Result panel 2990 (unknown) (no date) (unknown) [facility] (no value) [facility] Result panel 2991 (unknown) (no date) (unknown) [facility] (no value) [facility] Result panel 2992 (unknown) (no date) (unknown) [facility] (no value) [facility] Result panel 2993 (unknown) (no date) (unknown) [facility] (no value) [facility] Result panel 2994 (unknown) (no date) (unknown) [facility] (no value) [facility] Result panel 2995 (unknown) (no date) (unknown) [facility] (no value) [facility] Result panel 2996 (unknown) (no date) (unknown) [facility] (no value) [facility] Result panel 2997 (unknown) (no date) (unknown) [facility] (no value) [facility] Result panel 2998 (unknown) (no date) (unknown) [facility] (no value) [facility] Result panel 2999 (unknown) (no date) (unknown) [facility] (no value) [facility] Result panel 3000 (unknown) (no date) (unknown) [facility] (no value) [facility] Result panel 3001 (unknown) (no date) (unknown) [facility] (no value) [facility] Result panel 3002 (unknown) (no date) (unknown) [facility] (no value) [facility] Result panel 3003 (unknown) (no date) (unknown) [facility] (no value) [facility] Result panel 3004 (unknown) (no date) (unknown) [facility] (no value) [facility] Result panel 3005 (unknown) (no date) (unknown) [facility] (no value) [facility] Result panel 3006 (unknown) (no date) (unknown) [facility] (no value) [facility] Result panel 3007 (unknown) (no date) (unknown) [facility] (no value) [facility] Result panel 3008 (unknown) (no date) (unknown) [facility] (no value) [facility] Result panel 3009 (unknown) (no date) (unknown) [facility] (no value) [facility] Result panel 3010 (unknown) (no date) (unknown) [facility] (no value) [facility] Result panel 3011 (unknown) (no date) (unknown) [facility] (no value) [facility] Result panel 3012 (unknown) (no date) (unknown) [facility] (no value) [facility] Result panel 3013 (unknown) (no date) (unknown) [facility] (no value) [facility] Result panel 3014 (unknown) (no date) (unknown) [facility] (no value) [facility] Result panel 3015 (unknown) (no date) (unknown) [facility] (no value) [facility] Result panel 3016 (unknown) (no date) (unknown) [facility] (no value) [facility] Result panel 3017 (unknown) (no date) (unknown) [facility] (no value) [facility] Result panel 3018 (unknown) (no date) (unknown) [facility] (no value) [facility] Result panel 3019 (unknown) (no date) (unknown) [facility] (no value) [facility] Result panel 3020 (unknown) (no date) (unknown) [facility] (no value) [facility] Result panel 3021 (unknown) (no date) (unknown) [facility] (no value) [facility] Result panel 3022 (unknown) (no date) (unknown) [facility] (no value) [facility] Result panel 3023 (unknown) (no date) (unknown) [facility] (no value) [facility] Result panel 3024 (unknown) (no date) (unknown) [facility] (no value) [facility] Result panel 3025 (unknown) (no date) (unknown) [facility] (no value) [facility] Result panel 3026 (unknown) (no date) (unknown) [facility] (no value) [facility] Result panel 3027 (unknown) (no date) (unknown) [facility] (no value) [facility] Result panel 3028 (unknown) (no date) (unknown) [facility] (no value) [facility] Result panel 3029 (unknown) (no date) (unknown) [facility] (no value) [facility] Result panel 3030 (unknown) (no date) (unknown) [facility] (no value) [facility] Result panel 3031 (unknown) (no date) (unknown) [facility] (no value) [facility] Result panel 3032 (unknown) (no date) (unknown) [facility] (no value) [facility] Result panel 3033 (unknown) (no date) (unknown) [facility] (no value) [facility] Result panel 3034 (unknown) (no date) (unknown) [facility] (no value) [facility] Result panel 3035 (unknown) (no date) (unknown) [facility] (no value) [facility] Result panel 3036 (unknown) (no date) (unknown) [facility] (no value) [facility] Result panel 3037 (unknown) (no date) (unknown) [facility] (no value) [facility] Result panel 3038 (unknown) (no date) (unknown) [facility] (no value) [facility] Result panel 3039 (unknown) (no date) (unknown) [facility] (no value) [facility] Result panel 3040 (unknown) (no date) (unknown) [facility] (no value) [facility] Result panel 3041 (unknown) (no date) (unknown) [facility] (no value) [facility] Result panel 3042 (unknown) (no date) (unknown) [facility] (no value) [facility] Result panel 3043 (unknown) (no date) (unknown) [facility] (no value) [facility] Result panel 3044 (unknown) (no date) (unknown) [facility] (no value) [facility] Result panel 3045 (unknown) (no date) (unknown) [facility] (no value) [facility] Result panel 3046 (unknown) (no date) (unknown) [facility] (no value) [facility] Result panel 3047 (unknown) (no date) (unknown) [facility] (no value) [facility] Result panel 3048 (unknown) (no date) (unknown) [facility] (no value) [facility] Result panel 3049 (unknown) (no date) (unknown) [facility] (no value) [facility] Result panel 3050 (unknown) (no date) (unknown) [facility] (no value) [facility] Result panel 3051 (unknown) (no date) (unknown) [facility] (no value) [facility] Result panel 3052 (unknown) (no date) (unknown) [facility] (no value) [facility] Result panel 3053 (unknown) (no date) (unknown) [facility] (no value) [facility] Result panel 3054 (unknown) (no date) (unknown) [facility] (no value) [facility] Result panel 3055 (unknown) (no date) (unknown) [facility] (no value) [facility] Result panel 3056 (unknown) (no date) (unknown) [facility] (no value) [facility] Result panel 3057 (unknown) (no date) (unknown) [facility] (no value) [facility] Result panel 3058 (unknown) (no date) (unknown) [facility] (no value) [facility] Result panel 3059 (unknown) (no date) (unknown) [facility] (no value) [facility] Result panel 3060 (unknown) (no date) (unknown) [facility] (no value) [facility] Result panel 3061 (unknown) (no date) (unknown) [facility] (no value) [facility] Result panel 3062 (unknown) (no date) (unknown) [facility] (no value) [facility] Result panel 3063 (unknown) (no date) (unknown) [facility] (no value) [facility] Result panel 3064 (unknown) (no date) (unknown) [facility] (no value) [facility] Result panel 3065 (unknown) (no date) (unknown) [facility] (no value) [facility] Result panel 3066 (unknown) (no date) (unknown) [facility] (no value) [facility] Result panel 3067 (unknown) (no date) (unknown) [facility] (no value) [facility] Result panel 3068 (unknown) (no date) (unknown) [facility] (no value) [facility] Result panel 3069 (unknown) (no date) (unknown) [facility] (no value) [facility] Result panel 3070 (unknown) (no date) (unknown) [facility] (no value) [facility] Result panel 3071 (unknown) (no date) (unknown) [facility] (no value) [facility] Result panel 3072 (unknown) (no date) (unknown) [facility] (no value) [facility] Result panel 3073 (unknown) (no date) (unknown) [facility] (no value) [facility] Result panel 3074 (unknown) (no date) (unknown) [facility] (no value) [facility] Result panel 3075 (unknown) (no date) (unknown) [facility] (no value) [facility] Result panel 3076 (unknown) (no date) (unknown) [facility] (no value) [facility] Result panel 3077 (unknown) (no date) (unknown) [facility] (no value) [facility] Result panel 3078 (unknown) (no date) (unknown) [facility] (no value) [facility] Result panel 3079 (unknown) (no date) (unknown) [facility] (no value) [facility] Result panel 3080 (unknown) (no date) (unknown) [facility] (no value) [facility] Result panel 3081 (unknown) (no date) (unknown) [facility] (no value) [facility] Result panel 3082 (unknown) (no date) (unknown) [facility] (no value) [facility] Result panel 3083 (unknown) (no date) (unknown) [facility] (no value) [facility] Result panel 3084 (unknown) (no date) (unknown) [facility] (no value) [facility] Result panel 3085 (unknown) (no date) (unknown) [facility] (no value) [facility] Result panel 3086 (unknown) (no date) (unknown) [facility] (no value) [facility] Result panel 3087 (unknown) (no date) (unknown) [facility] (no value) [facility] Result panel 3088 (unknown) (no date) (unknown) [facility] (no value) [facility] Result panel 3089 (unknown) (no date) (unknown) [facility] (no value) [facility] Result panel 3090 (unknown) (no date) (unknown) [facility] (no value) [facility] Result panel 3091 (unknown) (no date) (unknown) [facility] (no value) [facility] Result panel 3092 (unknown) (no date) (unknown) [facility] (no value) [facility] Result panel 3093 (unknown) (no date) (unknown) [facility] (no value) [facility] Result panel 3094 (unknown) (no date) (unknown) [facility] (no value) [facility] Result panel 3095 (unknown) (no date) (unknown) [facility] (no value) [facility] Result panel 3096 (unknown) (no date) (unknown) [facility] (no value) [facility] Result panel 3097 (unknown) (no date) (unknown) [facility] (no value) [facility] Result panel 3098 (unknown) (no date) (unknown) [facility] (no value) [facility] Result panel 3099 (unknown) (no date) (unknown) [facility] (no value) [facility] Result panel 3100 (unknown) (no date) (unknown) [facility] (no value) [facility] Result panel 3101 (unknown) (no date) (unknown) [facility] (no value) [facility] Result panel 3102 (unknown) (no date) (unknown) [facility] (no value) [facility] Result panel 3103 (unknown) (no date) (unknown) [facility] (no value) [facility] Result panel 3104 (unknown) (no date) (unknown) [facility] (no value) [facility] Result panel 3105 (unknown) (no date) (unknown) [facility] (no value) [facility] Result panel 3106 (unknown) (no date) (unknown) [facility] (no value) [facility] Result panel 3107 (unknown) (no date) (unknown) [facility] (no value) [facility] Result panel 3108 (unknown) (no date) (unknown) [facility] (no value) [facility] Result panel 3109 (unknown) (no date) (unknown) [facility] (no value) [facility] Result panel 3110 (unknown) (no date) (unknown) [facility] (no value) [facility] Result panel 3111 (unknown) (no date) (unknown) [facility] (no value) [facility] Result panel 3112 (unknown) (no date) (unknown) [facility] (no value) [facility] Result panel 3113 (unknown) (no date) (unknown) [facility] (no value) [facility] Result panel 3114 (unknown) (no date) (unknown) [facility] (no value) [facility] Result panel 3115 (unknown) (no date) (unknown) [facility] (no value) [facility] Result panel 3116 (unknown) (no date) (unknown) [facility] (no value) [facility] Result panel 3117 (unknown) (no date) (unknown) [facility] (no value) [facility] Result panel 3118 (unknown) (no date) (unknown) [facility] (no value) [facility] Result panel 3119 (unknown) (no date) (unknown) [facility] (no value) [facility] Result panel 3120 (unknown) (no date) (unknown) [facility] (no value) [facility] Result panel 3121 (unknown) (no date) (unknown) [facility] (no value) [facility] Result panel 3122 (unknown) (no date) (unknown) [facility] (no value) [facility] Result panel 3123 (unknown) (no date) (unknown) [facility] (no value) [facility] Result panel 3124 (unknown) (no date) (unknown) [facility] (no value) [facility] Result panel 3125 (unknown) (no date) (unknown) [facility] (no value) [facility] Result panel 3126 (unknown) (no date) (unknown) [facility] (no value) [facility] Result panel 3127 (unknown) (no date) (unknown) [facility] (no value) [facility] Result panel 3128 (unknown) (no date) (unknown) [facility] (no value) [facility] Result panel 3129 (unknown) (no date) (unknown) [facility] (no value) [facility] Result panel 3130 (unknown) (no date) (unknown) [facility] (no value) [facility] Result panel 3131 (unknown) (no date) (unknown) [facility] (no value) [facility] Result panel 3132 (unknown) (no date) (unknown) [facility] (no value) [facility] Result panel 3133 (unknown) (no date) (unknown) [facility] (no value) [facility] Result panel 3134 (unknown) (no date) (unknown) [facility] (no value) [facility] Result panel 3135 (unknown) (no date) (unknown) [facility] (no value) [facility] Result panel 3136 (unknown) (no date) (unknown) [facility] (no value) [facility] Result panel 3137 (unknown) (no date) (unknown) [facility] (no value) [facility] Result panel 3138 (unknown) (no date) (unknown) [facility] (no value) [facility] Result panel 3139 (unknown) (no date) (unknown) [facility] (no value) [facility] Result panel 3140 (unknown) (no date) (unknown) [facility] (no value) [facility] Result panel 3141 (unknown) (no date) (unknown) [facility] (no value) [facility] Result panel 3142 (unknown) (no date) (unknown) [facility] (no value) [facility] Result panel 3143 (unknown) (no date) (unknown) [facility] (no value) [facility] Result panel 3144 (unknown) (no date) (unknown) [facility] (no value) [facility] Result panel 3145 (unknown) (no date) (unknown) [facility]no value) [facility] Result panel 3146 (unknown) (no date) (unknown) [facility] (no value) [facility] Result panel 3147 (unknown) (no date) (unknown) [facility] (no value) [facility] Result panel 3148 (unknown) (no date) (unknown) [facility] (no value) [facility] Result panel 3149 (unknown) (no date) (unknown) [facility] (no value) [facility] Result panel 3150 (unknown) (no date) (unknown) [facility] (no value) [facility] Result panel 3151 (unknown) (no date) (unknown) [facility] (no (units ( unknown) [facility]) [facility] Result panel 3152 (unknown) (no date) (unknown) [facility] (no value) [facility] Result panel 3153 (unknown) (no date) (unknown) [facility] (no value) [facility] Result panel 3154 (unknown) (no date) (unknown) [facility] (no value) [facility] Result panel 3155 (unknown) (no date) (unknown) [facility] (no value) [facility] Result panel 3156 (unknown) (no date) (unknown) [facility] (no value) [facility] Result panel 3157 (unknown) (no date) (unknown) [facility] (no value) [facility] Result panel 3158 (unknown) (no date) (unknown) [facility] (no value) [facility] Result panel 3159 (unknown) (no date) (unknown) [facility] (no value) [facility] Result panel 3160 (unknown) (no date) (unknown) [facility] (no value) [facility] Result panel 3161 (unknown) (no date) (unknown) [facility] (no value) [facility] Result panel 3162 (unknown) (no date) (unknown) [facility] (no value) [facility] Result panel 3163 (unknown) (no date) (unknown) [facility] (no value) [facility] Result panel 3164 (unknown) (no date) (unknown) [facility] (no value) [facility] Result panel 3165 (unknown) (no date) (unknown) [facility] (no value) [facility] Result panel 3166 (unknown) (no date) (unknown) [facility] (no value) [facility] Result panel 3167 (unknown) (no date) (unknown) [facility] (no value) [facility] Result panel 3168 (unknown) (no date) (unknown) [facility] (no value) [facility] Result panel 3169 (unknown) (no date) (unknown) [facility] (no value) [facility] Result panel 3170 (unknown) (no date) (unknown) [facility] (no value) [facility] Result panel 3171 (unknown) (no date) (unknown) [facility] (no value) [facility] Result panel 3172 (unknown) (no date) (unknown) [facility] (no value) [facility] Result panel 3173 (unknown) (no date) (unknown) [facility] (no value) [facility] Result panel 3174 (unknown) (no date) (unknown) [facility] (no value) [facility] Result panel 3175 (unknown) (no date) (unknown) [facility] (no value) [facility] Result panel 3176 (unknown) (no date) (unknown) [facility]no value[facility] Result panel 3177 (unknown) (no date) (unknown) [facility] (no value) [facility] Result panel 3178 (unknown) (no date) (unknown) [facility] (no value) [facility] Result panel 3179 (unknown) (no date) (unknown) [facility] (no value) [facility] Result panel 3180 (unknown) (no date) (unknown) [facility] (no value) [facility] Result panel 3181 (unknown) (no date) (unknown) [facility] (no value) [facility] Result panel 3182 (unknown) (no date) (unknown) [facility] (no value) [facility] Result panel 3183 (unknown) (no date) (unknown) [facility] (no value) [facility] Result panel 3184 (unknown) (no date) (unknown) [facility] (no value) [facility] Result panel 3185 (unknown) (no date) (unknown) [facility] (no value) [facility] Result panel 3186 (unknown) (no date) (unknown) [facility] (no value) [facility] Result panel 3187 (unknown) (no date) (unknown) [facility] (no value) [facility] Result panel 3188 (unknown) (no date) (unknown) [facility] (no value) [facility] Result panel 3189 (unknown) (no date) (unknown) [facility] (no value) [facility] Result panel 3190 (unknown) (no date) (unknown) [facility] (no value) [facility] Result panel 3191 (unknown) (no date) (unknown) [facility] (no value) [facility] Result panel 3192 (unknown) (no date) (unknown) [facility] (no value) [facility] Result panel 3193 (unknown) (no date) (unknown) [facility] (no value) [facility] Result panel 3194 (unknown) (no date) (unknown) [facility] (no value) [facility] Result panel 3195 (unknown) (no date) (unknown) [facility] (no value) [facility] Result panel 3196 (unknown) (no date) (unknown) [facility] (no value) [facility] Result panel 3197 (unknown) (no date) (unknown) [facility] (no value) [facility] Result panel 3198 (unknown) (no date) (unknown) [facility] (no value) [facility] Result panel 3199 (unknown) (no date) (unknown) [facility] (no value) [facility] Result panel 3200 (unknown) (no date) (unknown) [facility] (no value) [facility] Result panel 3201 (unknown) (no date) (unknown) [facility] (no value) [facility] Result panel 3202 (unknown) (no date) (unknown) [facility] (no value) [facility] Result panel 3203 (unknown) (no date) (unknown) [facility] (no value) [facility] Result panel 3204 (unknown) (no date) (unknown) [facility] (no value) [facility] Result panel 3205 (unknown) (no date) (unknown) [facility] (no value) [facility] Result panel 3206 (unknown) (no date) (unknown) [facility] (no value) [facility] Result panel 3207 (unknown) (no date) (unknown) [facility] (no value) [facility] Result panel 3208 (unknown) (no date) (unknown) [facility] (no value) [facility] Result panel 3209 (unknown) (no date) (unknown) [facility] (no value) [facility] Result panel 3210 (unknown) (no date) (unknown) [facility] (no value) [facility] Result panel 3211 (unknown) (no date) (unknown) [facility] (no value) [facility] Result panel 3212 (unknown) (no date) (unknown) [facility] (no value) [facility] Result panel 3213 (unknown) (no date) (unknown) [facility] (no value) [facility] Result panel 3214 (unknown) (no date) (unknown) [facility] (no value) [facility] Result panel 3215 (unknown) (no date) (unknown) [facility] (no value) [facility] Result panel 3216 (unknown) (no date) (unknown) [facility] (no value) [facility] Result panel 3217 (unknown) (no date) (unknown) [facility] (no value) [facility] Result panel 3218 (unknown) (no date) (unknown) [facility] (no value) [facility] Result panel 3219 (unknown) (no date) (unknown) [facility] (no value) [facility] Result panel 3220 (unknown) (no date) (unknown) [facility] (no value) [facility] Result panel 3221 (unknown) (no date) (unknown) [facility] (no value) [facility] Result panel 3222 (unknown) (no date) (unknown) [facility] (no value) [facility] Result panel 3223 (unknown) (no date) (unknown) [facility] (no value) [facility] Result panel 3224 (unknown) (no date) (unknown) [facility] (no value) [facility] Result panel 3225 (unknown) (no date) (unknown) [facility] (no value) [facility] Result panel 3226 (unknown) (no date) (unknown) [facility] (no value) [facility] Result panel 3227 (unknown) (no date) (unknown) [facility] (no value) [facility] Result panel 3228 (unknown) (no date) (unknown) [facility] (no value) [facility] Result panel 3229 (unknown) (no date) (unknown) [facility] (no value) [facility] Result panel 3230 (unknown) (no date) (unknown) [facility] (no value) [facility] Result panel 3231 (unknown) (no date) (unknown) [facility] (no value) [facility] Result panel 3232 (unknown) (no date) (unknown) [facility] (no value) [facility] Result panel 3233 (unknown) (no date) (unknown) [facility] (no value) [facility] Result panel 3234 (unknown) (no date) (unknown) [facility] (no value) [facility] Result panel 3235 (unknown) (no date) (unknown) [facility] (no value) [facility] Result panel 3236 (unknown) (no date) (unknown) [facility] (no value) [facility] Result panel 3237 (unknown) (no date) (unknown) [facility] (no value) [facility] Result panel 3238 (unknown) (no date) (unknown) [facility] (no value) [facility] Result panel 3239 (unknown) (no date) (unknown) [facility] (no value) [facility] Result panel 3240 (unknown) (no date) (unknown) [facility] (no value) [facility] Result panel 3241 (unknown) (no date) (unknown) [facility] (no value) [facility] Result panel 3242 (unknown) (no date) (unknown) [facility] (no value) [facility] Result panel 3243 (unknown) (no date) (unknown) [facility] (no value) [facility] Result panel 3244 (unknown) (no date) (unknown) [facility] (no value) [facility] Result panel 3245 (unknown) (no date) (unknown) [facility] (no value) [facility] Result panel 3246 (unknown) (no date) (unknown) [facility] (no value) [facility] Result panel 3247 (unknown) (no date) (unknown) [facility] (no value) [facility] Result panel 3248 (unknown) (no date) (unknown) [facility] (no value) [facility] Result panel 3249 (unknown) (no date) (unknown) [facility] (no value) [facility] Result panel 3250 (unknown) (no date) (unknown) [facility] (no value) [facility] Result panel 3251 (unknown) (no date) (unknown) [facility] (no value) [facility] Result panel 3252 (unknown) (no date) (unknown) [facility] (no value) [facility] Result panel 3253 (unknown) (no date) (unknown) [facility] (no value) [facility] Result panel 3254 (unknown) (no date) (unknown) [facility] (no value) [facility] Result panel 3255 (unknown) (no date) (unknown) [facility] (no value) [facility] Result panel 3256 (unknown) (no date) (unknown) [facility] (no value) [facility] Result panel 3257 (unknown) (no date) (unknown) [facility] (no value) [facility] Result panel 3258 (unknown) (no date) (unknown) [facility] (no value) [facility] Result panel 3259 (unknown) (no date) (unknown) [facility] (no value) [facility] Result panel 3260 (unknown) (no date) (unknown) [facility] (no value) [facility] Result panel 3261 (unknown) (no date) (unknown) [facility] (no value) [facility] Result panel 3262 (unknown) (no date) (unknown) [facility] (no value) [facility] Result panel 3263 (unknown) (no date) (unknown) [facility] (no value) [facility] Result panel 3264 (unknown) (no date) (unknown) [facility] (no value) [facility] Result panel 3265 (unknown) (no date) (unknown) [facility] (no value) [facility] Result panel 3266 (unknown) (no date) (unknown) [facility] (no value) [facility] Result panel 3267 (unknown) (no date) (unknown) [facility] (no value) [facility] Result panel 3268 (unknown) (no date) (unknown) [facility] (no value) [facility] Result panel 3269 (unknown) (no date) (unknown) [facility] (no value) [facility] Result panel 3270 (unknown) (no date) (unknown) [facility] (no value) [facility] Result panel 3271 (unknown) (no date) (unknown) [facility] (no value) [facility] Result panel 3272 (unknown) (no date) (unknown) [facility] (no value) [facility] Result panel 3273 (unknown) (no date) (unknown) [facility] (no value) [facility] Result panel 3274 (unknown) (no date) (unknown) [facility] (no value) [facility] Result panel 3275 (unknown) (no date) (unknown) [facility] (no value) [facility] Result panel 3276 (unknown) (no date) (unknown) [facility] (no value) [facility] Result panel 3277 (unknown) (no date) (unknown) [facility] (no value) [facility] Result panel 3278 (unknown) (no date) (unknown) [facility] (no value) [facility] Result panel 3279 (unknown) (no date) (unknown) [facility] (no value) [facility] Result panel 3280 (unknown) (no date) (unknown) [facility] (no value) [facility] Result panel 3281 (unknown) (no date) (unknown) [facility] (no value) [facility] Result panel 3282 (unknown) (no date) (unknown) [facility] (no value) [facility] Result panel 3283 (unknown) (no date) (unknown) [facility] (no value) [facility] Result panel 3284 (unknown) (no date) (unknown) [facility] (no value) [facility] Result panel 3285 (unknown) (no date) (unknown) [facility] (no value) [facility] Result panel 3286 (unknown) (no date) (unknown) [facility] (no value) [facility] Result panel 3287 (unknown) (no date) (unknown) [facility] (no value) [facility] Result panel 3288 (unknown) (no date) (unknown) [facility] (no value) [facility] Result panel 3289 (unknown) (no date) (unknown) [facility] (no value) [facility] Result panel 3290 (unknown) (no date) (unknown) [facility] (no value) [facility] Result panel 3291 (unknown) (no date) (unknown) [facility] (no value) [facility] Result panel 3292 (unknown) (no date) (unknown) [facility] (no value) [facility] Result panel 3293 (unknown) (no date) (unknown) [facility] (no value) [facility] Result panel 3294 (unknown) (no date) (unknown) [facility] (no value) [facility] Result panel 3295 (unknown) (no date) (unknown) [facility] (no value) [facility] Result panel 3296 (unknown) (no date) (unknown) [facility] (no value) [facility] Result panel 3297 (unknown) (no date) (unknown) [facility] (no value) [facility] Result panel 3298 (unknown) (no date) (unknown) [facility] (no value) [facility] Result panel 3299 (unknown) (no date) (unknown) [facility] (no value) [facility] Result panel 3300 (unknown) (no date) (unknown) [facility] (no value) [facility] Result panel 3301 (unknown) (no date) (unknown) [facility] (no value) [facility] Result panel 3302 (unknown) (no date) (unknown) [facility] (no value) [facility] Result panel 3303 (unknown) (no date) (unknown) [facility] (no value) [facility] Result panel 3304 (unknown) (no date) (unknown) [facility] (no value) [facility] Result panel 3305 (unknown) (no date) (unknown) [facility] (no value) [facility] Result panel 3306 (unknown) (no date) (unknown) [facility] (no value) [facility] Result panel 3307 (unknown) (no date) (unknown) [facility] (no value) [facility] Result panel 3308 (unknown) (no date) (unknown) [facility] (no value) [facility] Result panel 3309 (unknown) (no date) (unknown) [facility] (no value) [facility] Result panel 3310 (unknown) (no date) (unknown) [facility] (no value) [facility] Result panel 3311 (unknown) (no date) (unknown) [facility] (no value) [facility] Result panel 3312 (unknown) (no date) (unknown) [facility] (no value) [facility] Result panel 3313 (unknown) (no date) (unknown) [facility] (no value) [facility] Result panel 3314 (unknown) (no date) (unknown) [facility] value[facility] Result panel 3315 (unknown) (no date) (unknown) [facility] (no value) [facility] Result panel 3316 (unknown) (no date) (unknown) [facility] (no value) [facility] Result panel 3317 (unknown) (no date) (unknown) [facility] (no value[facility] Result panel 3318 (unknown) (no date) (unknown) [facility] (no value) [facility] Result panel 3319 (unknown) (no date) (unknown) [facility] (no value) [facility] Result panel 3320 (unknown) (no date) (unknown) [facility] (no value) [facility] Result panel 3321 (unknown) (no date) (unknown) [facility] (no value) [facility] Result panel 3322 (unknown) (no date) (unknown) [facility] (no value) [facility] Result panel 3323 (unknown) (no date) (unknown) [facility] (no value) [facility] Result panel 3324 (unknown) (no date) (unknown) [facility] (no value) [facility] Result panel 3325 (unknown) (no date) (unknown) [facility] (no value) [facility] Result panel 3326 (unknown) (no date) (unknown) [facility] (no value) [facility] Result panel 3327 (unknown) (no date) (unknown) [facility] (no value) [facility] Result panel 3328 (unknown) (no date) (unknown) [facility] (no value) [facility] Result panel 3329 (unknown) (no date) (unknown) [facility] (no value) [facility] Result panel 3330 (unknown) (no date) (unknown) [facility] (no value) [facility] Result panel 3331 (unknown) (no date) (unknown) [facility] (no value) [facility] Result panel 3332 (unknown) (no date) (unknown) [facility] (no value) [facility] Result panel 3333 (unknown) (no date) (unknown) [facility] (no value) [facility] Result panel 3334 (unknown) (no date) (unknown) [facility] (no value) [facility] Result panel 3335 (unknown) (no date) (unknown) [facility] (no value) [facility] Result panel 3336 (unknown) (no date) (unknown) [facility] (no value) [facility] Result panel 3337 (unknown) (no date) (unknown) [facility] (no value) [facility] Result panel 3338 (unknown) (no date) (unknown) [facility] (no value) [facility] Result panel 3339 (unknown) (no date) (unknown) [facility] (no value) [facility] Result panel 3340 (unknown) (no date) (unknown) [facility] (no value) [facility] Result panel 3341 (unknown) (no date) (unknown) [facility] (no value) [facility] Result panel 3342 (unknown) (no date) (unknown) [facility] (no value) [facility] Result panel 3343 (unknown) (no date) (unknown) [facility] (no value) [facility] Result panel 3344 (unknown) (no date) (unknown) [facility] (no value) [facility] Result panel 3345 (unknown) (no date) (unknown) [facility] (no value) [facility] Result panel 3346 (unknown) (no date) (unknown) [facility] (no value) [facility] Result panel 3347 (unknown) (no date) (unknown) [facility] (no value) [facility] Result panel 3348 (unknown) (no date) (unknown) [facility] (no value) [facility] Result panel 3349 (unknown) (no date) (unknown) [facility] (no value) [facility] Result panel 3350 (unknown) (no date) (unknown) [facility] (no value) [facility] Result panel 3351 (unknown) (no date) (unknown) [facility] (no value) [facility] Result panel 3352 (unknown) (no date) (unknown) [facility] (no value) [facility] Result panel 3353 (unknown) (no date) (unknown) [facility] (no value) [facility] Result panel 3354 (unknown) (no date) (unknown) [facility] (no value) [facility] Result panel 3355 (unknown) (no date) (unknown) [facility] (no value) [facility] Result panel 3356 (unknown) (no date) (unknown) [facility] (no value) [facility] Result panel 3357 (unknown) (no date) (unknown) [facility] (no value) [facility] Result panel 3358 (unknown) (no date) (unknown) [facility] (no value) [facility] Result panel 3359 (unknown) (no date) (unknown) [facility] (no value) [facility] Result panel 3360 (unknown) (no date) (unknown) [facility] (no value) [facility] Result panel 3361 (unknown) (no date) (unknown) [facility] (no value) [facility] Result panel 3362 (unknown) (no date) (unknown) [facility] (no value) [facility] Result panel 3363 (unknown) (no date) (unknown) [facility] (no value) [facility] Result panel 3364 (unknown) (no date) (unknown) [facility] (no value) [facility] Result panel 3365 (unknown) (no date) (unknown) [facility] (no value) [facility] Result panel 3366 (unknown) (no date) (unknown) [facility] (no value) [facility] Result panel 3367 (unknown) (no date) (unknown) [facility] (no value) [facility] Result panel 3368 (unknown) (no date) (unknown) [facility] (no value) [facility] Result panel 3369 (unknown) (no date) (unknown) [facility] (no value) [facility] Result panel 3370 (unknown) (no date) (unknown) [facility] (no value) [facility] Result panel 3371 (unknown) (no date) (unknown) [facility] (no value) [facility] Result panel 3372 (unknown) (no date) (unknown) [facility] (no value) [facility] Result panel 3373 (unknown) (no date) (unknown) [facility] (no value) [facility] Result panel 3374 (unknown) (no date) (unknown) [facility] (no value) [facility] Result panel 3375 (unknown) (no date) (unknown) [facility] (no value) [facility] Result panel 3376 (unknown) (no date) (unknown) [facility] (no value) [facility] Result panel 3377 (unknown) (no date) (unknown) [facility] (no value) [facility] Result panel 3378 (unknown) (no date) (unknown) [facility] (no value) [facility] Result panel 3379 (unknown) (no date) (unknown) [facility] (no value) [facility] Result panel 3380 (unknown) (no date) (unknown) [facility] (no value) [facility] Result panel 3381 (unknown) (no date) (unknown) [facility] (no value) [facility] Result panel 3382 (unknown) (no date) (unknown) [facility] (no value) [facility] Result panel 3383 (unknown) (no date) (unknown) [facility] (no value) [facility] Result panel 3384 (unknown) (no date) (unknown) [facility] (no value) [facility] Result panel 3385 (unknown) (no date) (unknown) [facility] (no value) [facility] Result panel 3386 (unknown) (no date) (unknown) [facility] (no value) [facility] Result panel 3387 (unknown) (no date) (unknown) [facility] (no value) [facility] Result panel 3388 (unknown) (no date) (unknown) [facility] (no value) [facility] Result panel 3389 (unknown) (no date) (unknown) [facility] (no value) [facility] Result panel 3390 (unknown) (no date) (unknown) [facility] (no value) [facility] Result panel 3391 (unknown) (no date) (unknown) [facility] (no value) [facility] Result panel 3392 (unknown) (no date) (unknown) [facility] (no value) [facility] Result panel 3393 (unknown) (no date) (unknown) [facility] (no value) [facility] Result panel 3394 (unknown) (no date) (unknown) [facility] (no value) [facility] Result panel 3395 (unknown) (no date) (unknown) [facility] (no value) [facility] Result panel 3396 (unknown) (no date) (unknown) [facility] (no value) [facility] Result panel 3397 (unknown) (no date) (unknown) [facility] (no value) [facility] Result panel 3398 (unknown) (no date) (unknown) [facility] (no value) [facility] Result panel 3399 (unknown) (no date) (unknown) [facility] (no value) [facility] Result panel 3400 (unknown) (no date) (unknown) [facility] (no value) [facility] Result panel 3401 (unknown) (no date) (unknown) [facility] (no value) [facility] Result panel 3402 (unknown) (no date) (unknown) [facility] (no value) [facility] Result panel 3403 (unknown) (no date) (unknown) [facility] (no value) [facility] Result panel 3404 (unknown) (no date) (unknown) [facility] (no value) [facility] Result panel 3405 (unknown) (no date) (unknown) [facility] (no value) [facility] Result panel 3406 (unknown) (no date) (unknown) [facility] (no value) [facility] Result panel 3407 (unknown) (no date) (unknown) [facility] (no value) [facility] Result panel 3408 (unknown) (no date) (unknown) [facility] (no value) [facility] Result panel 3409 (unknown) (no date) (unknown) [facility] (no value) [facility] Result panel 3410 (unknown) (no date) (unknown) [facility] (no value) [facility] Result panel 3411 (unknown) (no date) (unknown) [facility] (no value) [facility] Result panel 3412 (unknown) (no date) (unknown) [facility] (no value) [facility] Result panel 3413 (unknown) (no date) (unknown) [facility] (no value) [facility] Result panel 3414 (unknown) (no date) (unknown) [facility] (no value) [facility] Result panel 3415 (unknown) (no date) (unknown) [facility] (no value) [facility] Result panel 3416 (unknown) (no date) (unknown) [facility] (no value) [facility] Result panel 3417 (unknown) (no date) (unknown) [facility] (no value) [facility] Result panel 3418 (unknown) (no date) (unknown) [facility] (no value) [facility] Result panel 3419 (unknown) (no date) (unknown) [facility] (no value) [facility] Result panel 3420 (unknown) (no date) (unknown) [facility] (no value) [facility] Result panel 3421 (unknown) (no date) (unknown) [facility] (no value) [facility] Result panel 3422 (unknown) (no date) (unknown) [facility] (no value) [facility] Result panel 3423 (unknown) (no date) (unknown) [facility] (no value) [facility] Result panel 3424 (unknown) (no date) (unknown) [facility] (no value) [facility] Result panel 3425 (unknown) (no date) (unknown) [facility] (no value) [facility] Result panel 3426 (unknown) (no date) (unknown) [facility] (no value) [facility] Result panel 3427 (unknown) (no date) (unknown) [facility] (no value) [facility] Result panel 3428 (unknown) (no date) (unknown) [facility] (no value) [facility] Result panel 3429 (unknown) (no date) (unknown) [facility] (no value) [facility] Result panel 3430 (unknown) (no date) (unknown) [facility] (no value) [facility] Result panel 3431 (unknown) (no date) (unknown) [facility] (no value) [facility] Result panel 3432 (unknown) (no date) (unknown) [facility] (no value) [facility] Result panel 3433 (unknown) (no date) (unknown) [facility] (no value) [facility] Result panel 3434 (unknown) (no date) (unknown) [facility] (no value) [facility] Result panel 3435 (unknown) (no date) (unknown) [facility] (no value) [facility] Result panel 3436 (unknown) (no date) (unknown) [facility] (no value) [facility] Result panel 3437 (unknown) (no date) (unknown) [facility] (no value) [facility] Result panel 3438 (unknown) (no date) (unknown) [facility] (no value) [facility] Result panel 3439 (unknown) (no date) (unknown) [facility] (no value) [facility] Result panel 3440 (unknown) (no date) (unknown) [facility] (no value) [facility] Result panel 3441 (unknown) (no date) (unknown) [facility] (no value) [facility] Result panel 3442 (unknown) (no date) (unknown) [facility] (no value) [facility] Result panel 3443 (unknown) (no date) (unknown) [facility] (no value) [facility] Result panel 3444 (unknown) (no date) (unknown) [facility] (no value) [facility] Result panel 3445 (unknown) (no date) (unknown) [facility] (no value) [facility] Result panel 3446 (unknown) (no date) (unknown) [facility] (no value) [facility] Result panel 3447 (unknown) (no date) (unknown) [facility] (no value) [facility] Result panel 3448 (unknown) (no date) (unknown) [facility] (no value) [facility] Result panel 3449 (unknown) (no date) (unknown) [facility] (no value) [facility] Result panel 3450 (unknown) (no date) (unknown) [facility] (no value) [facility] Result panel 3451 (unknown) (no date) (unknown) [facility] (no value) [facility] Result panel 3452 (unknown) (no date) (unknown) [facility] (no value) [facility] Result panel 3453 (unknown) (no date) (unknown) [facility] (no value) [facility] Result panel 3454 (unknown) (no date) (unknown) [facility] (no value) [facility] Result panel 3455 (unknown) (no date) (unknown) [facility] (no value) [facility] Result panel 3456 (unknown) (no date) (unknown) [facility] (no value) [facility] Result panel 3457 (unknown) (no date) (unknown) [facility] (no value) [facility] Result panel 3458 (unknown) (no date) (unknown) [facility] (no value) [facility] Result panel 3459 (unknown) (no date) (unknown) [facility] (no value) [facility] Result panel 3460 (unknown) (no date) (unknown) [facility] (no value) [facility] Result panel 3461 (unknown) (no date) (unknown) [facility] (no value) [facility] Result panel 3462 (unknown) (no date) (unknown) [facility] (no value) [facility] Result panel 3463 (unknown) (no date) (unknown) [facility] (no value) [facility] Result panel 3464 (unknown) (no date) (unknown) [facility] (no value) [facility] Result panel 3465 (unknown) (no date) (unknown) [facility] (no value) [facility] Result panel 3466 (unknown) (no date) (unknown) [facility] (no value) [facility] Result panel 3467 (unknown) (no date) (unknown) [facility] (no value) [facility] Result panel 3468 (unknown) (no date) (unknown) [facility] (no value) [facility] Result panel 3469 (unknown) (no date) (unknown) [facility] (no value) [facility] Result panel 3470 (unknown) (no date) (unknown) [facility] (no value) [facility] Result panel 3471 (unknown) (no date) (unknown) [facility] (no value) [facility] Result panel 3472 (unknown) (no date) (unknown) [facility] (no value) [facility] Result panel 3473 (unknown) (no date) (unknown) [facility] (no value) [facility] Result panel 3474 (unknown) (no date) (unknown) [facility] (no value) [facility] Result panel 3475 (unknown) (no date) (unknown) [facility] (no value) [facility] Result panel 3476 (unknown) (no date) (unknown) [facility] (no value) [facility] Result panel 3477 (unknown) (no date) (unknown) [facility] (no value) [facility] Result panel 3478 (unknown) (no date) (unknown) [facility] (no value) [facility] Result panel 3479 (unknown) (no date) (unknown) [facility] (no value) [facility] Result panel 3480 (unknown) (no date) (unknown) [facility] (no value) [facility] Result panel 3481 (unknown) (no date) (unknown) [facility] (no value) [facility] Result panel 3482 (unknown) (no date) (unknown) [facility] (no value) [facility] Result panel 3483 (unknown) (no date) (unknown) [facility] value[facility] Result panel 3484 (unknown) (no date) (unknown) [facility] ([facility] value) [facility] Result panel 3485 (unknown) (no date) (unknown) [facility] (no value) [facility] Result panel 3486 (unknown) (no date) (unknown) [facility] (no value) [facility] Result panel 3487 (unknown) (no date) (unknown) [facility] (no value) [facility] Result panel 3488 (unknown) (no date) (unknown) [facility] (no value) [facility] Result panel 3489 (unknown) (no date) (unknown) [facility] (no value) [facility] Result panel 3490 (unknown) (no date) (unknown) [facility] (no value) [facility] Result panel 3491 (unknown) (no date) (unknown) [facility] (no value) [facility] Result panel 3492 (unknown) (no date) (unknown) [facility] (no value) [facility] Result panel 3493 (unknown) (no date) (unknown) [facility] (no value) [facility] Result panel 3494 (unknown) (no date) (unknown) [facility] (no value) [facility] Result panel 3495 (unknown) (no date) (unknown) [facility] (no value) [facility] Result panel 3496 (unknown) (no date) (unknown) [facility] (no value) [facility] Result panel 3497 (unknown) (no date) (unknown) [facility] (no value) [facility] Result panel 3498 (unknown) (no date) (unknown) [facility] (no value) [facility] Result panel 3499 (unknown) (no date) (unknown) [facility] (no value) [facility] Result panel 3500 (unknown) (no date) (unknown) [facility] (no value) [facility] Result panel 3501 (unknown) (no date) (unknown) [facility] (no value) [facility] Result panel 3502 (unknown) (no date) (unknown) [facility] (no value) [facility] Result panel 3503 (unknown) (no date) (unknown) [facility] (no value) [facility] Result panel 3504 (unknown) (no date) (unknown) [facility] (no value) [facility] Result panel 3505 (unknown) (no date) (unknown) [facility] (no value) [facility] Result panel 3506 (unknown) (no date) (unknown) [facility] (no value) [facility] Result panel 3507 (unknown) (no date) (unknown) [facility] (no value) [facility] Result panel 3508 (unknown) (no date) (unknown) [facility] (no value) [facility] Result panel 3509 (unknown) (no date) (unknown) [facility] (no value) [facility] Result panel 3510 (unknown) (no date) (unknown) [facility] (no value) [facility] Result panel 3511 (unknown) (no date) (unknown) [facility] (no value) [facility] Result panel 3512 (unknown) (no date) (unknown) [facility] (no value) [facility] Result panel 3513 (unknown) (no date) (unknown) [facility] (no value) [facility] Result panel 3514 (unknown) (no date) (unknown) [facility] (no value) [facility] Result panel 3515 (unknown) (no date) (unknown) [facility] (no value) [facility] Result panel 3516 (unknown) (no date) (unknown) [facility] (no value) [facility] Result panel 3517 (unknown) (no date) (unknown) [facility] (no value) [facility] Result panel 3518 (unknown) (no date) (unknown) [facility] (no value) [facility] Result panel 3519 (unknown) (no date) (unknown) [facility] (no value) [facility] Result panel 3520 (unknown) (no date) (unknown) [facility] (no value) [facility] Result panel 3521 (unknown) (no date) (unknown) [facility] (no value) [facility] Result panel 3522 (unknown) (no date) (unknown) [facility] (no value) [facility] Result panel 3523 (unknown) (no date) (unknown) [facility] (no value) [facility] Result panel 3524 (unknown) (no date) (unknown) [facility] (no value) [facility] Result panel 3525 (unknown) (no date) (unknown) [facility] (no value) [facility] Result panel 3526 (unknown) (no date) (unknown) [facility] (no value) [facility] Result panel 3527 (unknown) (no date) (unknown) [facility] (no value) [facility] Result panel 3528 (unknown) (no date) (unknown) [facility] (no value) [facility] Result panel 3529 (unknown) (no date) (unknown) [facility] (no value) [facility] Result panel 3530 (unknown) (no date) (unknown) [facility] (no value) [facility] Result panel 3531 (unknown) (no date) (unknown) [facility] (no value) [facility] Result panel 3532 (unknown) (no date) (unknown) [facility] (no value) [facility] Result panel 3533 (unknown) (no date) (unknown) [facility] (no value) [facility] Result panel 3534 (unknown) (no date) (unknown) [facility] (no value) [facility] Result panel 3535 (unknown) (no date) (unknown) [facility] (no value) [facility] Result panel 3536 (unknown) (no date) (unknown) [facility] (no value) [facility] Result panel 3537 (unknown) (no date) (unknown) [facility] (no value) [facility] Result panel 3538 (unknown) (no date) (unknown) [facility] (no value) [facility] Result panel 3539 (unknown) (no date) (unknown) [facility] (no value) [facility] Result panel 3540 (unknown) (no date) (unknown) [facility] (no value) [facility] Result panel 3541 (unknown) (no date) (unknown) [facility] (no value) [facility] Result panel 3542 (unknown) (no date) (unknown) [facility] (no value) [facility] Result panel 3543 (unknown) (no date) (unknown) [facility] (no value) [facility] Result panel 3544 (unknown) (no date) (unknown) [facility] (no value) [facility] Result panel 3545 (unknown) (no date) (unknown) [facility] (no value) [facility] Result panel 3546 (unknown) (no date) (unknown) [facility] (no value) [facility] Result panel 3547 (unknown) (no date) (unknown) [facility] (no value) [facility] Result panel 3548 (unknown) (no date) (unknown) [facility] (no value) [facility] Result panel 3549 (unknown) (no date) (unknown) [facility] (no value) [facility] Result panel 3550 (unknown) (no date) (unknown) [facility] (no value) [facility] Result panel 3551 (unknown) (no date) (unknown) [facility] (no value) [facility] Result panel 3552 (unknown) (no date) (unknown) [facility] (no value) [facility] Result panel 3553 (unknown) (no date) (unknown) [facility] (no value) [facility] Result panel 3554 (unknown) (no date) (unknown) [facility] (no value) [facility] Result panel 3555 (unknown) (no date) (unknown) [facility] (no value) [facility] Result panel 3556 (unknown) (no date) (unknown) [facility] (no value) [facility] Result panel 3557 (unknown) (no date) (unknown) [facility] (no value) [facility] Result panel 3558 (unknown) (no date) (unknown) [facility] (no value) [facility] Result panel 3559 (unknown) (no date) (unknown) [facility] (no value) [facility] Result panel 3560 (unknown) (no date) (unknown) [facility] (no value) [facility] Result panel 3561 (unknown) (no date) (unknown) [facility] (no value) [facility] Result panel 3562 (unknown) (no date) (unknown) [facility] (no value) [facility] Result panel 3563 (unknown) (no date) (unknown) [facility] (no value) [facility] Result panel 3564 (unknown) (no date) (unknown) [facility] (no value) [facility] Result panel 3565 (unknown) (no date) (unknown) [facility] (no value) [facility] Result panel 3566 (unknown) (no date) (unknown) [facility] value[facility] Result panel 3567 (unknown) (no date) (unknown) [facility] (no value) [facility] Result panel 3568 (unknown) (no date) (unknown) [facility] (no value) [facility] Result panel 3569 (unknown) (no date) (unknown) [facility] (no value) [facility] Result panel 3570 (unknown) (no date) (unknown) [facility] (no value) [facility] Result panel 3571 (unknown) (no date) (unknown) [facility] (no value) [facility] Result panel 3572 (unknown) (no date) (unknown) [facility] (no value) [facility] Result panel 3573 (unknown) (no date) (unknown) [facility] (no value) [facility] Result panel 3574 (unknown) (no date) (unknown) [facility] (no value) [facility] Result panel 3575 (unknown) (no date) (unknown) [facility] (no value) [facility] Result panel 3576 (unknown) (no date) (unknown) [facility] (no value) [facility] Result panel 3577 (unknown) (no date) (unknown) [facility] (no value) [facility] Result panel 3578 (unknown) (no date) (unknown) [facility] (no value) [facility] Result panel 3579 (unknown) (no date) (unknown) [facility] (no value) [facility] Result panel 3580 (unknown) (no date) (unknown) [facility] (no value) [facility] Result panel 3581 (unknown) (no date) (unknown) [facility] (no value) [facility] Result panel 3582 (unknown) (no date) (unknown) [facility] (no value) [facility] Result panel 3583 (unknown) (no date) (unknown) [facility] (no value) [facility] Result panel 3584 (unknown) (no date) (unknown) [facility] (no value) [facility] Result panel 3585 (unknown) (no date) (unknown) [facility] (no value) [facility] Result panel 3586 (unknown) (no date) (unknown) [facility] (no value) [facility] Result panel 3587 (unknown) (no date) (unknown) [facility] (no value) [facility] Result panel 3588 (unknown) (no date) (unknown) [facility] (no value) [facility] Result panel 3589 (unknown) (no date) (unknown) [facility] (no value) [facility] Result panel 3590 (unknown) (no date) (unknown) [facility] (no value) [facility] Result panel 3591 (unknown) (no date) (unknown) [facility] (no value) [facility] Result panel 3592 (unknown) (no date) (unknown) [facility] (no value) [facility] Result panel 3593 (unknown) (no date) (unknown) [facility] (no value) [facility] Result panel 3594 (unknown) (no date) (unknown) [facility] (no value) [facility] Result panel 3595 (unknown) (no date) (unknown) [facility] (no value) [facility] Result panel 3596 (unknown) (no date) (unknown) [facility] (no value) [facility] Result panel 3597 (unknown) (no date) (unknown) [facility] (no value) [facility] Result panel 3598 (unknown) (no date) (unknown) [facility] (no value) [facility] Result panel 3599 (unknown) (no date) (unknown) [facility] (no value) [facility] Result panel 3600 (unknown) (no date) (unknown) [facility] (no value) [facility] Result panel 3601 (unknown) (no date) (unknown) [facility] (no value) [facility] Result panel 3602 (unknown) (no date) (unknown) [facility] (no value) [facility] Result panel 3603 (unknown) (no date) (unknown) [facility] (no value) [facility] Result panel 3604 (unknown) (no date) (unknown) [facility] (no value) [facility] Result panel 3605 (unknown) (no date) (unknown) [facility] (no value) [facility] Result panel 3606 (unknown) (no date) (unknown) [facility] (no value) [facility] Result panel 3607 (unknown) (no date) (unknown) [facility] (no value) [facility] Result panel 3608 (unknown) (no date) (unknown) [facility] (no value) [facility] Result panel 3609 (unknown) (no date) (unknown) [facility] (no value) [facility] Result panel 3610 (unknown) (no date) (unknown) [facility] (no value) [facility] Result panel 3611 (unknown) (no date) (unknown) [facility] (no value) [facility] Result panel 3612 (unknown) (no date) (unknown) [facility] (no value) [facility] Result panel 3613 (unknown) (no date) (unknown) [facility] (no value) [facility] Result panel 3614 (unknown) (no date) (unknown) [facility] (no value) [facility] Result panel 3615 (unknown) (no date) (unknown) [facility] (no value) [facility] Result panel 3616 (unknown) (no date) (unknown) [facility] (no value) [facility] Result panel 3617 (unknown) (no date) (unknown) [facility] (no value) [facility] Result panel 3618 (unknown) (no date) (unknown) [facility] (no value) [facility] Result panel 3619 (unknown) (no date) (unknown) [facility] (no value) [facility] Result panel 3620 (unknown) (no date) (unknown) [facility] (no value) [facility] Result panel 3621 (unknown) (no date) (unknown) [facility] (no value) [facility] Result panel 3622 (unknown) (no date) (unknown) [facility] (no value) [facility] Result panel 3623 (unknown) (no date) (unknown) [facility] (no value) [facility] Result panel 3624 (unknown) (no date) (unknown) [facility] (no value) [facility] Result panel 3625 (unknown) (no date) (unknown) [facility] (no value) [facility] Result panel 3626 (unknown) (no date) (unknown) [facility] (no value) [facility] Result panel 3627 (unknown) (no date) (unknown) [facility] (no value) [facility] Result panel 3628 (unknown) (no date) (unknown) [facility] (no value) [facility] Result panel 3629 (unknown) (no date) (unknown) [facility] (no value) [facility] Result panel 3630 (unknown) (no date) (unknown) [facility] (no value) [facility] Result panel 3631 (unknown) (no date) (unknown) [facility] (no value) [facility] Result panel 3632 (unknown) (no date) (unknown) [facility] (no value) [facility] Result panel 3633 (unknown) (no date) (unknown) [facility] (no value) [facility] Result panel 3634 (unknown) (no date) (unknown) [facility] (no value) [facility] Result panel 3635 (unknown) (no date) (unknown) [facility] (no value) [facility] Result panel 3636 (unknown) (no date) (unknown) [facility] (no value) [facility] Result panel 3637 (unknown) (no date) (unknown) [facility] (no value) [facility] Result panel 3638 (unknown) (no date) (unknown) [facility] (no value) [facility] Result panel 3639 (unknown) (no date) (unknown) [facility] (no value) [facility] Result panel 3640 (unknown) (no date) (unknown) [facility] (no value) [facility] Result panel 3641 (unknown) (no date) (unknown) [facility] (no value) [facility] Result panel 3642 (unknown) (no date) (unknown) [facility] (no value) [facility] Result panel 3643 (unknown) (no date) (unknown) [facility] (no value) [facility] Result panel 3644 (unknown) (no date) (unknown) [facility] (no value) [facility] Result panel 3645 (unknown) (no date) (unknown) [facility] (no value) [facility] Result panel 3646 (unknown) (no date) (unknown) [facility] (no value) [facility] Result panel 3647 (unknown) (no date) (unknown) [facility] (no value) [facility] Result panel 3648 (unknown) (no date) (unknown) [facility] (no value) [facility] Result panel 3649 (unknown) (no date) (unknown) [facility] (no value) [facility] Result panel 3650 (unknown) (no date) (unknown) [facility] (no value) [facility] Result panel 3651 (unknown) (no date) (unknown) [facility] (no value) [facility] Result panel 3652 (unknown) (no date) (unknown) [facility] value[facility] Result panel 3653 (unknown) (no date) (unknown) [facility] ([facility] value[facility] Result panel 3654 (unknown) (no date) (unknown) [facility] (no value) [facility] Result panel 3655 (unknown) (no date) (unknown) [facility] (no value) [facility] Result panel 3656 (unknown) (no date) (unknown) [facility] (no value) [facility] Result panel 3657 (unknown) (no date) (unknown) [facility] (no value) [facility] Result panel 3658 (unknown) (no date) (unknown) [facility] (no value) [facility] Result panel 3659 (unknown) (no date) (unknown) [facility] (no value) [facility] Result panel 3660 (unknown) (no date) (unknown) [facility] (no value) [facility] Result panel 3661 (unknown) (no date) (unknown) [facility] (no value) [facility] Result panel 3662 (unknown) (no date) (unknown) [facility] (no value) [facility] Result panel 3663 (unknown) (no date) (unknown) [facility] (no value) [facility] Result panel 3664 (unknown) (no date) (unknown) [facility] (no value) [facility] Result panel 3665 (unknown) (no date) (unknown) [facility] (no value) [facility] Result panel 3666 (unknown) (no date) (unknown) [facility] (no value) [facility] Result panel 3667 (unknown) (no date) (unknown) [facility] (no value) [facility] Result panel 3668 (unknown) (no date) (unknown) [facility] (no value) [facility] Result panel 3669 (unknown) (no date) (unknown) [facility] (no value) [facility] Result panel 3670 (unknown) (no date) (unknown) [facility] (no value) [facility] Result panel 3671 (unknown) (no date) (unknown) [facility] (no value) [facility] Result panel 3672 (unknown) (no date) (unknown) [facility] (no value) [facility] Result panel 3673 (unknown) (no date) (unknown) [facility] (no value) [facility] Result panel 3674 (unknown) (no date) (unknown) [facility] (no value) [facility] Result panel 3675 (unknown) (no date) (unknown) [facility] (no value) [facility] Result panel 3676 (unknown) (no date) (unknown) [facility] (no value) [facility] Result panel 3677 (unknown) (no date) (unknown) [facility] (no value) [facility] Result panel 3678 (unknown) (no date) (unknown) [facility] (no value) [facility] Result panel 3679 (unknown) (no date) (unknown) [facility] (no value) [facility] Result panel 3680 (unknown) (no date) (unknown) [facility] (no value) [facility] Result panel 3681 (unknown) (no date) (unknown) [facility] (no value) [facility] Result panel 3682 (unknown) (no date) (unknown) [facility] (no value) [facility] Result panel 3683 (unknown) (no date) (unknown) [facility] (no value) [facility] Result panel 3684 (unknown) (no date) (unknown) [facility] (no value) [facility] Result panel 3685 (unknown) (no date) (unknown) [facility] (no value) [facility] Result panel 3686 (unknown) (no date) (unknown) [facility] (no value) [facility] Result panel 3687 (unknown) (no date) (unknown) [facility] (no value) [facility] Result panel 3688 (unknown) (no date) (unknown) [facility] (no value) [facility] Result panel 3689 (unknown) (no date) (unknown) [facility] (no value) [facility] Result panel 3690 (unknown) (no date) (unknown) [facility] (no value) [facility] Result panel 3691 (unknown) (no date) (unknown) [facility] (no value) [facility] Result panel 3692 (unknown) (no date) (unknown) [facility] (no value) [facility] Result panel 3693 (unknown) (no date) (unknown) [facility] (no value) [facility] Result panel 3694 (unknown) (no date) (unknown) [facility] (no value) [facility] Result panel 3695 (unknown) (no date) (unknown) [facility] (no value) [facility] Result panel 3696 (unknown) (no date) (unknown) [facility] (no value) [facility] Result panel 3697 (unknown) (no date) (unknown) [facility] (no value) [facility] Result panel 3698 (unknown) (no date) (unknown) [facility] (no value) [facility] Result panel 3699 (unknown) (no date) (unknown) [facility] (no value) [facility] Result panel 3700 (unknown) (no date) (unknown) [facility] (no value) [facility] Result panel 3701 (unknown) (no date) (unknown) [facility] (no value) [facility] Result panel 3702 (unknown) (no date) (unknown) [facility] (no value) [facility] Result panel 3703 (unknown) (no date) (unknown) [facility] (no value) [facility] Result panel 3704 (unknown) (no date) (unknown) [facility] (no value) [facility] Result panel 3705 (unknown) (no date) (unknown) [facility] (no value) [facility] Result panel 3706 (unknown) (no date) (unknown) [facility] (no value) [facility] Result panel 3707 (unknown) (no date) (unknown) [facility] (no value) [facility] Result panel 3708 (unknown) (no date) (unknown) [facility] (no value) [facility] Result panel 3709 (unknown) (no date) (unknown) [facility] (no value) [facility] Result panel 3710 (unknown) (no date) (unknown) [facility] (no value) [facility] Result panel 3711 (unknown) (no date) (unknown) [facility] (no value) [facility] Result panel 3712 (unknown) (no date) (unknown) [facility] (no value) [facility] Result panel 3713 (unknown) (no date) (unknown) [facility] (no value) [facility] Result panel 3714 (unknown) (no date) (unknown) [facility] (no value) [facility] Result panel 3715 (unknown) (no date) (unknown) [facility] (no value) [facility] Result panel 3716 (unknown) (no date) (unknown) [facility] (no value) [facility] Result panel 3717 (unknown) (no date) (unknown) [facility] (no value) [facility] Result panel 3718 (unknown) (no date) (unknown) [facility] (no value) [facility] Result panel 3719 (unknown) (no date) (unknown) [facility] (no value) [facility] Result panel 3720 (unknown) (no date) (unknown) [facility] (no value) [facility] Result panel 3721 (unknown) (no date) (unknown) [facility] (no value) [facility] Result panel 3722 (unknown) (no date) (unknown) [facility] (no value) [facility] Result panel 3723 (unknown) (no date) (unknown) [facility] (no value) [facility] Result panel 3724 (unknown) (no date) (unknown) [facility] (no value) [facility] Result panel 3725 (unknown) (no date) (unknown) [facility] (no value) [facility] Result panel 3726 (unknown) (no date) (unknown) [facility] (no value) [facility] Result panel 3727 (unknown) (no date) (unknown) [facility] (no value) [facility] Result panel 3728 (unknown) (no date) (unknown) [facility] (no value) [facility] Result panel 3729 (unknown) (no date) (unknown) [facility] (no value) [facility] Result panel 3730 (unknown) (no date) (unknown) [facility] (no value) [facility] Result panel 3731 (unknown) (no date) (unknown) [facility] (no value) [facility] Result panel 3732 (unknown) (no date) (unknown) [facility] (no value) [facility] Result panel 3733 (unknown) (no date) (unknown) [facility] (no value) [facility] Result panel 3734 (unknown) (no date) (unknown) [facility] (no value) [facility] Result panel 3735 (unknown) (no date) (unknown) [facility] (no value) [facility] Result panel 3736 (unknown) (no date) (unknown) [facility] (no value) [facility] Result panel 3737 (unknown) (no date) (unknown) [facility] (no value) [facility] Result panel 3738 (unknown) (no date) (unknown) [facility] (no value) [facility] Result panel 3739 (unknown) (no date) (unknown) [facility] (no value) [facility] Result panel 3740 (unknown) (no date) (unknown) [facility] (no value) [facility] Result panel 3741 (unknown) (no date) (unknown) [facility] (no value) [facility] Result panel 3742 (unknown) (no date) (unknown) [facility] (no value) [facility] Result panel 3743 (unknown) (no date) (unknown) [facility] (no value) [facility] Result panel 3744 (unknown) (no date) (unknown) [facility] (no value) [facility] Result panel 3745 (unknown) (no date) (unknown) [facility] (no value) [facility] Result panel 3746 (unknown) (no date) (unknown) [facility] (no value) [facility] Result panel 3747 (unknown) (no date) (unknown) [facility] (no value) [facility] Result panel 3748 (unknown) (no date) (unknown) [facility] (no value) [facility] Result panel 3749 (unknown) (no date) (unknown) [facility] (no value) [facility] Result panel 3750 (unknown) (no date) (unknown) [facility] (no value) [facility] Result panel 3751 (unknown) (no date) (unknown) [facility] (no value) [facility] Result panel 3752 (unknown) (no date) (unknown) [facility] (no value) [facility] Result panel 3753 (unknown) (no date) (unknown) [facility] (no value) [facility] Result panel 3754 (unknown) (no date) (unknown) [facility] (no value) [facility] Result panel 3755 (unknown) (no date) (unknown) [facility] (no value) [facility] Result panel 3756 (unknown) (no date) (unknown) [facility] (no value) [facility] Result panel 3757 (unknown) (no date) (unknown) [facility] (no value) [facility] Result panel 3758 (unknown) (no date) (unknown) [facility] (no value) [facility] Result panel 3759 (unknown) (no date) (unknown) [facility] (no value) [facility] Result panel 3760 (unknown) (no date) (unknown) [facility] (no value) [facility] Result panel 3761 (unknown) (no date) (unknown) [facility] (no value) [facility] Result panel 3762 (unknown) (no date) (unknown) [facility] (no value) [facility] Result panel 3763 (unknown) (no date) (unknown) [facility] (no value) [facility] Result panel 3764 (unknown) (no date) (unknown) [facility] (no value) [facility] Result panel 3765 (unknown) (no date) (unknown) [facility] (no value) [facility] Result panel 3766 (unknown) (no date) (unknown) [facility] (no value) [facility] Result panel 3767 (unknown) (no date) (unknown) [facility] (no value) [facility] Result panel 3768 (unknown) (no date) (unknown) [facility] (no value) [facility] Result panel 3769 (unknown) (no date) (unknown) [facility] (no value) [facility] Result panel 3770 (unknown) (no date) (unknown) [facility] (no value) [facility] Result panel 3771 (unknown) (no date) (unknown) [facility] (no value) [facility] Result panel 3772 (unknown) (no date) (unknown) [facility] (no value) [facility] Result panel 3773 (unknown) (no date) (unknown) [facility] (no value) [facility] Result panel 3774 (unknown) (no date) (unknown) [facility] (no value) [facility] Result panel 3775 (unknown) (no date) (unknown) [facility] (no value) [facility] Result panel 3776 (unknown) (no date) (unknown) [facility] (no value) [facility] Result panel 3777 (unknown) (no date) (unknown) [facility] (no value) [facility] Result panel 3778 (unknown) (no date) (unknown) [facility] (no value) [facility] Result panel 3779 (unknown) (no date) (unknown) [facility] (no value) [facility] Result panel 3780 (unknown) (no date) (unknown) [facility] (no value) [facility] Result panel 3781 (unknown) (no date) (unknown) [facility] (no value) [facility] Result panel 3782 (unknown) (no date) (unknown) [facility] (no value) [facility] Result panel 3783 (unknown) (no date) (unknown) [facility] (no value) [facility] Result panel 3784 (unknown) (no date) (unknown) [facility] (no value) [facility] Result panel 3785 (unknown) (no date) (unknown) [facility] (no value) [facility] Result panel 3786 (unknown) (no date) (unknown) [facility] (no value) [facility] Result panel 3787 (unknown) (no date) (unknown) [facility] (no value) [facility] Result panel 3788 (unknown) (no date) (unknown) [facility] (no value) [facility] Result panel 3789 (unknown) (no date) (unknown) [facility] (no value) [facility] Result panel 3790 (unknown) (no date) (unknown) [facility] (no value) [facility] Result panel 3791 (unknown) (no date) (unknown) [facility] (no value) [facility] Result panel 3792 (unknown) (no date) (unknown) [facility] (no value) [facility] Result panel 3793 (unknown) (no date) (unknown) [facility] (no value) [facility] Result panel 3794 (unknown) (no date) (unknown) [facility] (no value) [facility] Result panel 3795 (unknown) (no date) (unknown) [facility] value[facility] Result panel 3796 (unknown) (no date) (unknown) [facility] (no value) [facility] Result panel 3797 (unknown) (no date) (unknown) [facility] (no value) [facility] Result panel 3798 (unknown) (no date) (unknown) [facility] (no value) [facility] Result panel 3799 (unknown) (no date) (unknown) [facility] (no value) [facility] Result panel 3800 (unknown) (no date) (unknown) [facility] (no value) [facility] Result panel 3801 (unknown) (no date) (unknown) [facility] (no value) [facility] Result panel 3802 (unknown) (no date) (unknown) [facility] (no value) [facility] Result panel 3803 (unknown) (no date) (unknown) [facility] (no value) [facility] Result panel 3804 (unknown) (no date) (unknown) [facility] (no value) [facility] Result panel 3805 (unknown) (no date) (unknown) [facility] (no value) [facility] Result panel 3806 (unknown) (no date) (unknown) [facility] (no value) [facility] Result panel 3807 (unknown) (no date) (unknown) [facility] (no value) [facility] Result panel 3808 (unknown) (no date) (unknown) [facility] (no value) [facility] Result panel 3809 (unknown) (no date) (unknown) [facility] (no value) [facility] Result panel 3810 (unknown) (no date) (unknown) [facility] (no value) [facility] Result panel 3811 (unknown) (no date) (unknown) [facility] (no value) [facility] Result panel 3812 (unknown) (no date) (unknown) [facility] (no value) [facility] Result panel 3813 (unknown) (no date) (unknown) [facility] (no value) [facility] Result panel 3814 (unknown) (no date) (unknown) [facility] (no value) [facility] Result panel 3815 (unknown) (no date) (unknown) [facility] (no value) [facility] Result panel 3816 (unknown) (no date) (unknown) [facility] (no value) [facility] Result panel 3817 (unknown) (no date) (unknown) [facility] (no value) [facility] Result panel 3818 (unknown) (no date) (unknown) [facility] (no value) [facility] Result panel 3819 (unknown) (no date) (unknown) [facility] (no value) [facility] Result panel 3820 (unknown) (no date) (unknown) [facility] (no value) [facility] Result panel 3821 (unknown) (no date) (unknown) [facility] value[facility] Result panel 3822 (unknown) (no date) (unknown) [facility] (no value) [facility] Result panel 3823 (unknown) (no date) (unknown) [facility] (no value) [facility] Result panel 3824 (unknown) (no date) (unknown) [facility] (no value) [facility] Result panel 3825 (unknown) (no date) (unknown) [facility] (no value) [facility] Result panel 3826 (unknown) (no date) (unknown) [facility] (no value) [facility] Result panel 3827 (unknown) (no date) (unknown) [facility] (no value) [facility] Result panel 3828 (unknown) (no date) (unknown) [facility] (no value) [facility] Result panel 3829 (unknown) (no date) (unknown) [facility] (no value) [facility] Result panel 3830 (unknown) (no date) (unknown) [facility] (no value) [facility] Result panel 3831 (unknown) (no date) (unknown) [facility] (no value) [facility] Result panel 3832 (unknown) (no date) (unknown) [facility] (no value) [facility] Result panel 3833 (unknown) (no date) (unknown) [facility] (no value) [facility] Result panel 3834 (unknown) (no date) (unknown) [facility] (no value) [facility] Result panel 3835 (unknown) (no date) (unknown) [facility] (no value) [facility] Result panel 3836 (unknown) (no date) (unknown) [facility] (no value) [facility] Result panel 3837 (unknown) (no date) (unknown) [facility] (no value) [facility] Result panel 3838 (unknown) (no date) (unknown) [facility] (no value) [facility] Result panel 3839 (unknown) (no date) (unknown) [facility] (no value) [facility] Result panel 3840 (unknown) (no date) (unknown) [facility] (no value) [facility] Result panel 3841 (unknown) (no date) (unknown) [facility] (no value) [facility] Result panel 3842 (unknown) (no date) (unknown) [facility] (no value) [facility] Result panel 3843 (unknown) (no date) (unknown) [facility] (no value) [facility] Result panel 3844 (unknown) (no date) (unknown) [facility] (no value) [facility] Result panel 3845 (unknown) (no date) (unknown) [facility] (no value) [facility] Result panel 3846 (unknown) (no date) (unknown) [facility] (no value) [facility] Result panel 3847 (unknown) (no date) (unknown) [facility] (no value) [facility] Result panel 3848 (unknown) (no date) (unknown) [facility] (no value) [facility] Result panel 3849 (unknown) (no date) (unknown) [facility] (no value) [facility] Result panel 3850 (unknown) (no date) (unknown) [facility] (no value) [facility] Result panel 3851 (unknown) (no date) (unknown) [facility] (no value) [facility] Result panel 3852 (unknown) (no date) (unknown) [facility] (no value) [facility] Result panel 3853 (unknown) (no date) (unknown) [facility] (no value) [facility] Result panel 3854 (unknown) (no date) (unknown) [facility] (no value) [facility] Result panel 3855 (unknown) (no date) (unknown) [facility] (no value) [facility] Result panel 3856 (unknown) (no date) (unknown) [facility] (no value) [facility] Result panel 3857 (unknown) (no date) (unknown) [facility] (no value) [facility] Result panel 3858 (unknown) (no date) (unknown) [facility] (no value) [facility] Result panel 3859 (unknown) (no date) (unknown) [facility] (no value) [facility] Result panel 3860 (unknown) (no date) (unknown) [facility] (no value) [facility] Result panel 3861 (unknown) (no date) (unknown) [facility] (no value) [facility] Result panel 3862 (unknown) (no date) (unknown) [facility] (no value) [facility] Result panel 3863 (unknown) (no date) (unknown) [facility] (no value) [facility] Result panel 3864 (unknown) (no date) (unknown) [facility] (no value) [facility] Result panel 3865 (unknown) (no date) (unknown) [facility] (no value) [facility] Result panel 3866 (unknown) (no date) (unknown) [facility] (no value) [facility] Result panel 3867 (unknown) (no date) (unknown) [facility] (no value) [facility] Result panel 3868 (unknown) (no date) (unknown) [facility] (no value) [facility] Result panel 3869 (unknown) (no date) (unknown) [facility] (no value) [facility] Result panel 3870 (unknown) (no date) (unknown) [facility] (no value) [facility] Result panel 3871 (unknown) (no date) (unknown) [facility] (no value) [facility] Result panel 3872 (unknown) (no date) (unknown) [facility] (no value) [facility] Result panel 3873 (unknown) (no date) (unknown) [facility] (no value) [facility] Result panel 3874 (unknown) (no date) (unknown) [facility] (no value) [facility] Result panel 3875 (unknown) (no date) (unknown) [facility] (no value) [facility] Result panel 3876 (unknown) (no date) (unknown) [facility] (no value) [facility] Result panel 3877 (unknown) (no date) (unknown) [facility] (no value) [facility] Result panel 3878 (unknown) (no date) (unknown) [facility] (no value) [facility] Result panel 3879 (unknown) (no date) (unknown) [facility] (no value) [facility] Result panel 3880 (unknown) (no date) (unknown) [facility] (no value) [facility] Result panel 3881 (unknown) (no date) (unknown) [facility] (no value) [facility] Result panel 3882 (unknown) (no date) (unknown) [facility] (no value) [facility] Result panel 3883 (unknown) (no date) (unknown) [facility] (no value) [facility] Result panel 3884 (unknown) (no date) (unknown) [facility] (no value) [facility] Result panel 3885 (unknown) (no date) (unknown) [facility] (no value) [facility] Result panel 3886 (unknown) (no date) (unknown) [facility] (no value) [facility] Result panel 3887 (unknown) (no date) (unknown) [facility] (no value) [facility] Result panel 3888 (unknown) (no date) (unknown) [facility] (no value) [facility] Result panel 3889 (unknown) (no date) (unknown) [facility] (no value) [facility] Result panel 3890 (unknown) (no date) (unknown) [facility] (no value) [facility] Result panel 3891 (unknown) (no date) (unknown) [facility] (no value) [facility] Result panel 3892 (unknown) (no date) (unknown) [facility] (no value) [facility] Result panel 3893 (unknown) (no date) (unknown) [facility] (no value) [facility] Result panel 3894 (unknown) (no date) (unknown) [facility] (no value) [facility] Result panel 3895 (unknown) (no date) (unknown) [facility] (no value) [facility] Result panel 3896 (unknown) (no date) (unknown) [facility] (no value) [facility] Result panel 3897 (unknown) (no date) (unknown) [facility] (no value) [facility] Result panel 3898 (unknown) (no date) (unknown) [facility] (no value) [facility] Result panel 3899 (unknown) (no date) (unknown) [facility] (no value) [facility] Result panel 3900 (unknown) (no date) (unknown) [facility] (no value) [facility] Result panel 3901 (unknown) (no date) (unknown) [facility] (no value) [facility] Result panel 3902 (unknown) (no date) (unknown) [facility] (no value) [facility] Result panel 3903 (unknown) (no date) (unknown) [facility] (no value) [facility] Result panel 3904 (unknown) (no date) (unknown) [facility] (no value) [facility] Result panel 3905 (unknown) (no date) (unknown) [facility] (no value) [facility] Result panel 3906 (unknown) (no date) (unknown) [facility] (no value) [facility] Result panel 3907 (unknown) (no date) (unknown) [facility] (no value) [facility] Result panel 3908 (unknown) (no date) (unknown) [facility] (no value) [facility] Result panel 3909 (unknown) (no date) (unknown) [facility] (no value) [facility] Result panel 3910 (unknown) (no date) (unknown) [facility] (no value) [facility] Result panel 3911 (unknown) (no date) (unknown) [facility] (no value) [facility] Result panel 3912 (unknown) (no date) (unknown) [facility] (no value) [facility] Result panel 3913 (unknown) (no date) (unknown) [facility] (no value) [facility] Result panel 3914 (unknown) (no date) (unknown) [facility] (no value) [facility] Result panel 3915 (unknown) (no date) (unknown) [facility] (no value) [facility] Result panel 3916 (unknown) (no date) (unknown) [facility] (no value) [facility] Result panel 3917 (unknown) (no date) (unknown) [facility] (no value) [facility] Result panel 3918 (unknown) (no date) (unknown) [facility] (no value) [facility] Result panel 3919 (unknown) (no date) (unknown) [facility] (no value) [facility] Result panel 3920 (unknown) (no date) (unknown) [facility] (no value) [facility] Result panel 3921 (unknown) (no date) (unknown) [facility] (no value) [facility] Result panel 3922 (unknown) (no date) (unknown) [facility] (no value) [facility] Result panel 3923 (unknown) (no date) (unknown) [facility] (no value) [facility] Result panel 3924 (unknown) (no date) (unknown) [facility] (no value) [facility] Result panel 3925 (unknown) (no date) (unknown) [facility] (no value) [facility] Result panel 3926 (unknown) (no date) (unknown) [facility] (no value) [facility] Result panel 3927 (unknown) (no date) (unknown) [facility] (no value) [facility] Result panel 3928 (unknown) (no date) (unknown) [facility] (no value) [facility] Result panel 3929 (unknown) (no date) (unknown) [facility] (no value) [facility] Result panel 3930 (unknown) (no date) (unknown) [facility] (no value) [facility] Result panel 3931 (unknown) (no date) (unknown) [facility] (no value) [facility] Result panel 3932 (unknown) (no date) (unknown) [facility] (no value) [facility] Result panel 3933 (unknown) (no date) (unknown) [facility] (no value) [facility] Result panel 3934 (unknown) (no date) (unknown) [facility] (no value) [facility] Result panel 3935 (unknown) (no date) (unknown) [facility] (no value) [facility] Result panel 3936 (unknown) (no date) (unknown) [facility] (no value) [facility] Result panel 3937 (unknown) (no date) (unknown) [facility] (no value) [facility] Result panel 3938 (unknown) (no date) (unknown) [facility] (no value) [facility] Result panel 3939 (unknown) (no date) (unknown) [facility] (no value) [facility] Result panel 3940 (unknown) (no date) (unknown) [facility] (no value) [facility] Result panel 3941 (unknown) (no date) (unknown) [facility] (no value) [facility] Result panel 3942 (unknown) (no date) (unknown) [facility] (no value) [facility] Result panel 3943 (unknown) (no date) (unknown) [facility] (no value) [facility] Result panel 3944 (unknown) (no date) (unknown) [facility] (no value) [facility] Result panel 3945 (unknown) (no date) (unknown) [facility] (no value) [facility] Result panel 3946 (unknown) (no date) (unknown) [facility] (no value) [facility] Result panel 3947 (unknown) (no date) (unknown) [facility] (no value) [facility] Result panel 3948 (unknown) (no date) (unknown) [facility] (no value) [facility] Result panel 3949 (unknown) (no date) (unknown) [facility] (no value) [facility] Result panel 3950 (unknown) (no date) (unknown) [facility] (no value) [facility] Result panel 3951 (unknown) (no date) (unknown) [facility] (no value) [facility] Result panel 3952 (unknown) (no date) (unknown) [facility] (no value) [facility] Result panel 3953 (unknown) (no date) (unknown) [facility] (no value) [facility] Result panel 3954 (unknown) (no date) (unknown) [facility] (no value) [facility] Result panel 3955 (unknown) (no date) (unknown) [facility] (no value) [facility] Result panel 3956 (unknown) (no date) (unknown) [facility] (no value) [facility] Result panel 3957 (unknown) (no date) (unknown) [facility] (no value) [facility] Result panel 3958 (unknown) (no date) (unknown) [facility] (no value) [facility] Result panel 3959 (unknown) (no date) (unknown) [facility] (no value) [facility] Result panel 3960 (unknown) (no date) (unknown) [facility] (no value) [facility] Result panel 3961 (unknown) (no date) (unknown) [facility] (no value) [facility] Result panel 3962 (unknown) (no date) (unknown) [facility] (no value) [facility] Result panel 3963 (unknown) (no date) (unknown) [facility] (no value) [facility] Result panel 3964 (unknown) (no date) (unknown) [facility] (no value) [facility] Result panel 3965 (unknown) (no date) (unknown) [facility] (no value) [facility] Result panel 3966 (unknown) (no date) (unknown) [facility] (no value) [facility] Result panel 3967 (unknown) (no date) (unknown) [facility] (no value) [facility] Result panel 3968 (unknown) (no date) (unknown) [facility] (no value) [facility] Result panel 3969 (unknown) (no date) (unknown) [facility] (no value) [facility] Result panel 3970 (unknown) (no date) (unknown) [facility] (no value) [facility] Result panel 3971 (unknown) (no date) (unknown) [facility] (no value) [facility] Result panel 3972 (unknown) (no date) (unknown) [facility] (no value) [facility] Result panel 3973 (unknown) (no date) (unknown) [facility] (no value) [facility] Result panel 3974 (unknown) (no date) (unknown) [facility] (no value) [facility] Result panel 3975 (unknown) (no date) (unknown) [facility] (no value) [facility] Result panel 3976 (unknown) (no date) (unknown) [facility] (no value) [facility] Result panel 3977 (unknown) (no date) (unknown) [facility] (no value) [facility] Result panel 3978 (unknown) (no date) (unknown) [facility] (no value) [facility] Result panel 3979 (unknown) (no date) (unknown) [facility] (no value) [facility] Result panel 3980 (unknown) (no date) (unknown) [facility] (no value) [facility] Result panel 3981 (unknown) (no date) (unknown) [facility] (no value) [facility] Result panel 3982 (unknown) (no date) (unknown) [facility] (no value) [facility] Result panel 3983 (unknown) (no date) (unknown) [facility] (no value) [facility] Result panel 3984 (unknown) (no date) (unknown) [facility] (no value) [facility] Result panel 3985 (unknown) (no date) (unknown) [facility] (no value) [facility] Result panel 3986 (unknown) (no date) (unknown) [facility] (no value) [facility] Result panel 3987 (unknown) (no date) (unknown) [facility] (no value) [facility] Result panel 3988 (unknown) (no date) (unknown) [facility] (no value) [facility] Result panel 3989 (unknown) (no date) (unknown) [facility] (no value) [facility] Result panel 3990 (unknown) (no date) (unknown) [facility] value[facility] Result panel 3991 (unknown) (no date) (unknown) [facility] (no value) [facility] Result panel 3992 (unknown) (no date) (unknown) [facility] (no value) [facility] Result panel 3993 (unknown) (no date) (unknown) [facility] (no value) [facility] Result panel 3994 (unknown) (no date) (unknown) [facility] (no value) [facility] Result panel 3995 (unknown) (no date) (unknown) [facility] (no value) [facility] Result panel 3996 (unknown) (no date) (unknown) [facility] (no value) [facility] Result panel 3997 (unknown) (no date) (unknown) [facility] (no value) [facility] Result panel 3998 (unknown) (no date) (unknown) [facility] (no value) [facility] Result panel 3999 (unknown) (no date) (unknown) [facility] (no value) [facility] Result panel 4000 (unknown) (no date) (unknown) [facility] (no value) [facility] Result panel 4001 (unknown) (no date) (unknown) [facility] (no value) [facility] Result panel 4002 (unknown) (no date) (unknown) [facility] (no value) [facility] Result panel 4003 (unknown) (no date) (unknown) [facility] (no value) [facility] Result panel 4004 (unknown) (no date) (unknown) [facility] (no value) [facility] Result panel 4005 (unknown) (no date) (unknown) [facility] (no value) [facility] Result panel 4006 (unknown) (no date) (unknown) [facility] (no value) [facility] Result panel 4007 (unknown) (no date) (unknown) [facility] (no value) [facility] Result panel 4008 (unknown) (no date) (unknown) [facility] (no value) [facility] Result panel 4009 (unknown) (no date) (unknown) [facility] (no value) [facility] Result panel 4010 (unknown) (no date) (unknown) [facility] (no value) [facility] Result panel 4011 (unknown) (no date) (unknown) [facility] (no value) [facility] Result panel 4012 (unknown) (no date) (unknown) [facility] (no value) [facility] Result panel 4013 (unknown) (no date) (unknown) [facility] (no value) [facility] Result panel 4014 (unknown) (no date) (unknown) [facility] (no value) [facility] Result panel 4015 (unknown) (no date) (unknown) [facility] (no value) [facility] Result panel 4016 (unknown) (no date) (unknown) [facility] (no value) [facility] Result panel 4017 (unknown) (no date) (unknown) [facility] (no value) [facility] Result panel 4018 (unknown) (no date) (unknown) [facility] (no value) [facility] Result panel 4019 (unknown) (no date) (unknown) [facility] (no value) [facility] Result panel 4020 (unknown) (no date) (unknown) [facility] (no value) [facility] Result panel 4021 (unknown) (no date) (unknown) [facility] (no value) [facility] Result panel 4022 (unknown) (no date) (unknown) [facility] (no value) [facility] Result panel 4023 (unknown) (no date) (unknown) [facility] (no value) [facility] Result panel 4024 (unknown) (no date) (unknown) [facility] (no value) [facility] Result panel 4025 (unknown) (no date) (unknown) [facility] (no value) [facility] Result panel 4026 (unknown) (no date) (unknown) [facility] (no value) [facility] Result panel 4027 (unknown) (no date) (unknown) [facility] (no value) [facility] Result panel 4028 (unknown) (no date) (unknown) [facility] (no value) [facility] Result panel 4029 (unknown) (no date) (unknown) [facility] (no value) [facility] Result panel 4030 (unknown) (no date) (unknown) [facility] (no value) [facility] Result panel 4031 (unknown) (no date) (unknown) [facility] (no value) [facility] Result panel 4032 (unknown) (no date) (unknown) [facility] (no value) [facility] Result panel 4033 (unknown) (no date) (unknown) [facility] (no value) [facility] Result panel 4034 (unknown) (no date) (unknown) [facility] (no value) [facility] Result panel 4035 (unknown) (no date) (unknown) [facility] (no value) [facility] Result panel 4036 (unknown) (no date) (unknown) [facility] (no value) [facility] Result panel 4037 (unknown) (no date) (unknown) [facility] (no value) [facility] Result panel 4038 (unknown) (no date) (unknown) [facility] (no value) [facility] Result panel 4039 (unknown) (no date) (unknown) [facility] (no value) [facility] Result panel 4040 (unknown) (no date) (unknown) [facility] (no value) [facility] Result panel 4041 (unknown) (no date) (unknown) [facility] (no value) [facility] Result panel 4042 (unknown) (no date) (unknown) [facility] (no value) [facility] Result panel 4043 (unknown) (no date) (unknown) [facility] (no value) [facility] Result panel 4044 (unknown) (no date) (unknown) [facility] (no value) [facility] Result panel 4045 (unknown) (no date) (unknown) [facility] (no value) [facility] Result panel 4046 (unknown) (no date) (unknown) [facility] (no value) [facility] Result panel 4047 (unknown) (no date) (unknown) [facility] (no value) [facility] Result panel 4048 (unknown) (no date) (unknown) [facility] (no value) [facility] Result panel 4049 (unknown) (no date) (unknown) [facility] (no value) [facility] Result panel 4050 (unknown) (no date) (unknown) [facility] (no value) [facility] Result panel 4051 (unknown) (no date) (unknown) [facility] (no value) [facility] Result panel 4052 (unknown) (no date) (unknown) [facility] (no value) [facility] Result panel 4053 (unknown) (no date) (unknown) [facility] (no value) [facility] Result panel 4054 (unknown) (no date) (unknown) [facility] (no value) [facility] Result panel 4055 (unknown) (no date) (unknown) [facility] (no value) [facility] Result panel 4056 (unknown) (no date) (unknown) [facility] (no value) [facility] Result panel 4057 (unknown) (no date) (unknown) [facility] (no value) [facility] Result panel 4058 (unknown) (no date) (unknown) [facility] (no value) [facility] Result panel 4059 (unknown) (no date) (unknown) [facility] (no value) [facility] Result panel 4060 (unknown) (no date) (unknown) [facility] (no value) [facility] Result panel 4061 (unknown) (no date) (unknown) [facility] (no value) [facility] Result panel 4062 (unknown) (no date) (unknown) [facility] (no value) [facility] Result panel 4063 (unknown) (no date) (unknown) [facility] (no value) [facility] Result panel 4064 (unknown) (no date) (unknown) [facility] (no value) [facility] Result panel 4065 (unknown) (no date) (unknown) [facility] (no value) [facility] Result panel 4066 (unknown) (no date) (unknown) [facility] (no value) [facility] Result panel 4067 (unknown) (no date) (unknown) [facility] (no value) [facility] Result panel 4068 (unknown) (no date) (unknown) [facility] (no value) [facility] Result panel 4069 (unknown) (no date) (unknown) [facility] (no value) [facility] Result panel 4070 (unknown) (no date) (unknown) [facility] (no value) [facility] Result panel 4071 (unknown) (no date) (unknown) [facility] (no value) [facility] Result panel 4072 (unknown) (no date) (unknown) [facility] (no value) [facility] Result panel 4073 (unknown) (no date) (unknown) [facility] (no value) [facility] Result panel 4074 (unknown) (no date) (unknown) [facility] (no value) [facility] Result panel 4075 (unknown) (no date) (unknown) [facility] (no value) [facility] Result panel 4076 (unknown) (no date) (unknown) [facility] (no value) [facility] Result panel 4077 (unknown) (no date) (unknown) [facility] (no value) [facility] Result panel 4078 (unknown) (no date) (unknown) [facility] (no value) [facility] Result panel 4079 (unknown) (no date) (unknown) [facility] (no value) [facility] Result panel 4080 (unknown) (no date) (unknown) [facility] (no value) [facility] Result panel 4081 (unknown) (no date) (unknown) [facility] (no value) [facility] Result panel 4082 (unknown) (no date) (unknown) [facility] (no value) [facility] Result panel 4083 (unknown) (no date) (unknown) [facility] (no value) [facility] Result panel 4084 (unknown) (no date) (unknown) [facility] (no value) [facility] Result panel 4085 (unknown) (no date) (unknown) [facility] (no value) [facility] Result panel 4086 (unknown) (no date) (unknown) [facility] (no value) [facility] Result panel 4087 (unknown) (no date) (unknown) [facility] (no value) [facility] Result panel 4088 (unknown) (no date) (unknown) [facility] (no value) [facility] Result panel 4089 (unknown) (no date) (unknown) [facility] (no value) [facility] Result panel 4090 (unknown) (no date) (unknown) [facility] (no value) [facility] Result panel 4091 (unknown) (no date) (unknown) [facility] (no value) [facility] Result panel 4092 (unknown) (no date) (unknown) [facility] (no value) [facility] Result panel 4093 (unknown) (no date) (unknown) [facility] (no value) [facility] Result panel 4094 (unknown) (no date) (unknown) [facility] (no value) [facility] Result panel 4095 (unknown) (no date) (unknown) [facility] (no value) [facility] Result panel 4096 (unknown) (no date) (unknown) [facility] (no value) [facility] Result panel 4097 (unknown) (no date) (unknown) [facility] (no value) [facility] Result panel 4098 (unknown) (no date) (unknown) [facility] (no value) [facility] Result panel 4099 (unknown) (no date) (unknown) [facility] (no value) [facility] Result panel 4100 (unknown) (no date) (unknown) [facility] (no value) [facility] Result panel 4101 (unknown) (no date) (unknown) [facility] (no value) [facility] Result panel 4102 (unknown) (no date) (unknown) [facility] (no value) [facility] Result panel 4103 (unknown) (no date) (unknown) [facility] (no value) [facility] Result panel 4104 (unknown) (no date) (unknown) [facility] (no value) [facility] Result panel 4105 (unknown) (no date) (unknown) [facility] (no value) [facility] Result panel 4106 (unknown) (no date) (unknown) [facility] (no value) [facility] Result panel 4107 (unknown) (no date) (unknown) [facility] (no value) [facility] Result panel 4108 (unknown) (no date) (unknown) [facility] (no value) [facility] Result panel 4109 (unknown) (no date) (unknown) [facility] (no value) [facility] Result panel 4110 (unknown) (no date) (unknown) [facility] (no value) [facility] Result panel 4111 (unknown) (no date) (unknown) [facility] (no value) [facility] Result panel 4112 (unknown) (no date) (unknown) [facility] (no value) [facility] Result panel 4113 (unknown) (no date) (unknown) [facility] (no value) [facility] Result panel 4114 (unknown) (no date) (unknown) [facility] (no value) [facility] Result panel 4115 (unknown) (no date) (unknown) [facility] (no value) [facility] Result panel 4116 (unknown) (no date) (unknown) [facility] (no value) [facility] Result panel 4117 (unknown) (no date) (unknown) [facility] (no value) [facility] Result panel 4118 (unknown) (no date) (unknown) [facility] (no value) [facility] Result panel 4119 (unknown) (no date) (unknown) [facility] (no value) [facility] Result panel 4120 (unknown) (no date) (unknown) [facility] (no value) [facility] Result panel 4121 (unknown) (no date) (unknown) [facility] (no value) [facility] Result panel 4122 (unknown) (no date) (unknown) [facility] (no value) [facility] Result panel 4123 (unknown) (no date) (unknown) [facility] (no value) [facility] Result panel 4124 (unknown) (no date) (unknown) [facility] (no value) [facility] Result panel 4125 (unknown) (no date) (unknown) [facility] (no value) [facility] Result panel 4126 (unknown) (no date) (unknown) [facility] (no value) [facility] Result panel 4127 (unknown) (no date) (unknown) [facility] (no value) [facility] Result panel 4128 (unknown) (no date) (unknown) [facility] (no value) [facility] Result panel 4129 (unknown) (no date) (unknown) [facility] (no value) [facility] Result panel 4130 (unknown) (no date) (unknown) [facility] (no value) [facility] Result panel 4131 (unknown) (no date) (unknown) [facility] (no value) [facility] Result panel 4132 (unknown) (no date) (unknown) [facility] (no value) [facility] Result panel 4133 (unknown) (no date) (unknown) [facility] (no value) [facility] Result panel 4134 (unknown) (no date) (unknown) [facility] (no value) [facility] Result panel 4135 (unknown) (no date) (unknown) [facility] (no value) [facility] Result panel 4136 (unknown) (no date) (unknown) [facility] (no value) [facility] Result panel 4137 (unknown) (no date) (unknown) [facility] (no value) [facility] Result panel 4138 (unknown) (no date) (unknown) [facility] (no value) [facility] Result panel 4139 (unknown) (no date) (unknown) [facility] (no value) [facility] Result panel 4140 (unknown) (no date) (unknown) [facility] (no value) [facility] Result panel 4141 (unknown) (no date) (unknown) [facility] (no value) [facility] Result panel 4142 (unknown) (no date) (unknown) [facility] (no value) [facility] Result panel 4143 (unknown) (no date) (unknown) [facility] (no value) [facility] Result panel 4144 (unknown) (no date) (unknown) [facility] (no value) [facility] Result panel 4145 (unknown) (no date) (unknown) [facility] (no value) [facility] Result panel 4146 (unknown) (no date) (unknown) [facility] (no value) [facility] Result panel 4147 (unknown) (no date) (unknown) [facility] (no value) [facility] Result panel 4148 (unknown) (no date) (unknown) [facility] (no value) [facility] Result panel 4149 (unknown) (no date) (unknown) [facility] (no value) [facility] Result panel 4150 (unknown) (no date) (unknown) [facility] (no value) [facility] Result panel 4151 (unknown) (no date) (unknown) [facility] (no value) [facility] Result panel 4152 (unknown) (no date) (unknown) [facility] (no value) [facility] Result panel 4153 (unknown) (no date) (unknown) [facility] (no value) [facility] Result panel 4154 (unknown) (no date) (unknown) [facility] (no value) [facility] Result panel 4155 (unknown) (no date) (unknown) [facility] (no value) [facility] Result panel 4156 (unknown) (no date) (unknown) [facility] (no value) [facility] Result panel 4157 (unknown) (no date) (unknown) [facility] (no value) [facility] Result panel 4158 (unknown) (no date) (unknown) [facility] (no value) [facility] Result panel 4159 (unknown) (no date) (unknown) [facility] value[facility] Result panel 4160 (unknown) (no date) (unknown) [facility] (no value) [facility] Result panel 4161 (unknown) (no date) (unknown) [facility] (no value) [facility] Result panel 4162 (unknown) (no date) (unknown) [facility] (no value) [facility] Result panel 4163 (unknown) (no date) (unknown) [facility] (no value) [facility] Result panel 4164 (unknown) (no date) (unknown) [facility] (no value) [facility] Result panel 4165 (unknown) (no date) (unknown) [facility] (no value) [facility] Result panel 4166 (unknown) (no date) (unknown) [facility] (no value) [facility] Result panel 4167 (unknown) (no date) (unknown) [facility] (no value) [facility] Result panel 4168 (unknown) (no date) (unknown) [facility] (no value) [facility] Result panel 4169 (unknown) (no date) (unknown) [facility] (no value) [facility] Result panel 4170 (unknown) (no date) (unknown) [facility] (no value) [facility] Result panel 4171 (unknown) (no date) (unknown) [facility] (no value) [facility] Result panel 4172 (unknown) (no date) (unknown) [facility] (no value) [facility] Result panel 4173 (unknown) (no date) (unknown) [facility] (no value) [facility] Result panel 4174 (unknown) (no date) (unknown) [facility] (no value) [facility] Result panel 4175 (unknown) (no date) (unknown) [facility] (no value) [facility] Result panel 4176 (unknown) (no date) (unknown) [facility] (no value) [facility] Result panel 4177 (unknown) (no date) (unknown) [facility] (no value) [facility] Result panel 4178 (unknown) (no date) (unknown) [facility] (no value) [facility] Result panel 4179 (unknown) (no date) (unknown) [facility] (no value) [facility] Result panel 4180 (unknown) (no date) (unknown) [facility] (no value) [facility] Result panel 4181 (unknown) (no date) (unknown) [facility] (no value) [facility] Result panel 4182 (unknown) (no date) (unknown) [facility] (no value) [facility] Result panel 4183 (unknown) (no date) (unknown) [facility] (no value) [facility] Result panel 4184 (unknown) (no date) (unknown) [facility] (no value) [facility] Result panel 4185 (unknown) (no date) (unknown) [facility] (no value) [facility] Result panel 4186 (unknown) (no date) (unknown) [facility] (no value) [facility] Result panel 4187 (unknown) (no date) (unknown) [facility] (no value) [facility] Result panel 4188 (unknown) (no date) (unknown) [facility] (no value) [facility] Result panel 4189 (unknown) (no date) (unknown) [facility] (no value) [facility] Result panel 4190 (unknown) (no date) (unknown) [facility] (no value) [facility] Result panel 4191 (unknown) (no date) (unknown) [facility] (no value) [facility] Result panel 4192 (unknown) (no date) (unknown) [facility] (no value) [facility] Result panel 4193 (unknown) (no date) (unknown) [facility] (no value) [facility] Result panel 4194 (unknown) (no date) (unknown) [facility] (no value) [facility] Result panel 4195 (unknown) (no date) (unknown) [facility] (no value) [facility] Result panel 4196 (unknown) (no date) (unknown) [facility] (no value) [facility] Result panel 4197 (unknown) (no date) (unknown) [facility] (no value) [facility] Result panel 4198 (unknown) (no date) (unknown) [facility] (no value) [facility] Result panel 4199 (unknown) (no date) (unknown) [facility] (no value) [facility] Result panel 4200 (unknown) (no date) (unknown) [facility] (no value) [facility] Result panel 4201 (unknown) (no date) (unknown) [facility] (no value) [facility] Result panel 4202 (unknown) (no date) (unknown) [facility] (no value) [facility] Result panel 4203 (unknown) (no date) (unknown) [facility] (no value) [facility] Result panel 4204 (unknown) (no date) (unknown) [facility] (no value) [facility] Result panel 4205 (unknown) (no date) (unknown) [facility] (no value) [facility] Result panel 4206 (unknown) (no date) (unknown) [facility] (no value) [facility] Result panel 4207 (unknown) (no date) (unknown) [facility] (no value) [facility] Result panel 4208 (unknown) (no date) (unknown) [facility] (no value) [facility] Result panel 4209 (unknown) (no date) (unknown) [facility] (no value) [facility] Result panel 4210 (unknown) (no date) (unknown) [facility] (no value) [facility] Result panel 4211 (unknown) (no date) (unknown) [facility] (no value) [facility] Result panel 4212 (unknown) (no date) (unknown) [facility] (no value) [facility] Result panel 4213 (unknown) (no date) (unknown) [facility] (no value) [facility] Result panel 4214 (unknown) (no date) (unknown) [facility] (no value) [facility] Result panel 4215 (unknown) (no date) (unknown) [facility] (no value) [facility] Result panel 4216 (unknown) (no date) (unknown) [facility] (no value) [facility] Result panel 4217 (unknown) (no date) (unknown) [facility] (no value) [facility] Result panel 4218 (unknown) (no date) (unknown) [facility] (no value) [facility] Result panel 4219 (unknown) (no date) (unknown) [facility] (no value) [facility] Result panel 4220 (unknown) (no date) (unknown) [facility] (no value) [facility] Result panel 4221 (unknown) (no date) (unknown) [facility] (no value) [facility] Result panel 4222 (unknown) (no date) (unknown) [facility] (no value) [facility] Result panel 4223 (unknown) (no date) (unknown) [facility] (no value) [facility] Result panel 4224 (unknown) (no date) (unknown) [facility] (no value) [facility] Result panel 4225 (unknown) (no date) (unknown) [facility] (no value) [facility] Result panel 4226 (unknown) (no date) (unknown) [facility] (no value) [facility] Result panel 4227 (unknown) (no date) (unknown) [facility] (no value) [facility] Result panel 4228 (unknown) (no date) (unknown) [facility] (no value) [facility] Result panel 4229 (unknown) (no date) (unknown) [facility] (no value) [facility] Result panel 4230 (unknown) (no date) (unknown) [facility] (no value) [facility] Result panel 4231 (unknown) (no date) (unknown) [facility] (no value) [facility] Result panel 4232 (unknown) (no date) (unknown) [facility] (no value) [facility] Result panel 4233 (unknown) (no date) (unknown) [facility] (no value) [facility] Result panel 4234 (unknown) (no date) (unknown) [facility] (no value) [facility] Result panel 4235 (unknown) (no date) (unknown) [facility] (no value) [facility] Result panel 4236 (unknown) (no date) (unknown) [facility] (no value) [facility] Result panel 4237 (unknown) (no date) (unknown) [facility] (no value) [facility] Result panel 4238 (unknown) (no date) (unknown) [facility] (no value) [facility] Result panel 4239 (unknown) (no date) (unknown) [facility] (no value) [facility] Result panel 4240 (unknown) (no date) (unknown) [facility] (no value) [facility] Result panel 4241 (unknown) (no date) (unknown) [facility] (no value) [facility] Result panel 4242 (unknown) (no date) (unknown) [facility] (no value) [facility] Result panel 4243 (unknown) (no date) (unknown) [facility] (no value) [facility] Result panel 4244 (unknown) (no date) (unknown) [facility] (no value) [facility] Result panel 4245 (unknown) (no date) (unknown) [facility] (no value) [facility] Result panel 4246 (unknown) (no date) (unknown) [facility] (no value) [facility] Result panel 4247 (unknown) (no date) (unknown) [facility] (no value) [facility] Result panel 4248 (unknown) (no date) (unknown) [facility] (no value) [facility] Result panel 4249 (unknown) (no date) (unknown) [facility] (no value) [facility] Result panel 4250 (unknown) (no date) (unknown) [facility] (no value) [facility] Result panel 4251 (unknown) (no date) (unknown) [facility] (no value) [facility] Result panel 4252 (unknown) (no date) (unknown) [facility] (no value) [facility] Result panel 4253 (unknown) (no date) (unknown) [facility] (no value) [facility] Result panel 4254 (unknown) (no date) (unknown) [facility] (no value) [facility] Result panel 4255 (unknown) (no date) (unknown) [facility] (no value) [facility] Result panel 4256 (unknown) (no date) (unknown) [facility] (no value) [facility] Result panel 4257 (unknown) (no date) (unknown) [facility] (no value) [facility] Result panel 4258 (unknown) (no date) (unknown) [facility] (no value) [facility] Result panel 4259 (unknown) (no date) (unknown) [facility] (no value) [facility] Result panel 4260 (unknown) (no date) (unknown) [facility] (no value) [facility] Result panel 4261 (unknown) (no date) (unknown) [facility] (no value) [facility] Result panel 4262 (unknown) (no date) (unknown) [facility] (no value) [facility] Result panel 4263 (unknown) (no date) (unknown) [facility] (no value) [facility] Result panel 4264 (unknown) (no date) (unknown) [facility] (no value) [facility] Result panel 4265 (unknown) (no date) (unknown) [facility] (no value) [facility] Result panel 4266 (unknown) (no date) (unknown) [facility] (no value) [facility] Result panel 4267 (unknown) (no date) (unknown) [facility] (no value) [facility] Result panel 4268 (unknown) (no date) (unknown) [facility] (no value) [facility] Result panel 4269 (unknown) (no date) (unknown) [facility] (no value) [facility] Result panel 4270 (unknown) (no date) (unknown) [facility] (no value) [facility] Result panel 4271 (unknown) (no date) (unknown) [facility] (no value) [facility] Result panel 4272 (unknown) (no date) (unknown) [facility] (no value) [facility] Result panel 4273 (unknown) (no date) (unknown) [facility] (no value) [facility] Result panel 4274 (unknown) (no date) (unknown) [facility] (no value) [facility] Result panel 4275 (unknown) (no date) (unknown) [facility] (no value) [facility] Result panel 4276 (unknown) (no date) (unknown) [facility] (no value) [facility] Result panel 4277 (unknown) (no date) (unknown) [facility] (no value) [facility] Result panel 4278 (unknown) (no date) (unknown) [facility] (no value) [facility] Result panel 4279 (unknown) (no date) (unknown) [facility] (no value) [facility] Result panel 4280 (unknown) (no date) (unknown) [facility] (no value) [facility] Result panel 4281 (unknown) (no date) (unknown) [facility] (no value) [facility] Result panel 4282 (unknown) (no date) (unknown) [facility] (no value) [facility] Result panel 4283 (unknown) (no date) (unknown) [facility] (no value) [facility] Result panel 4284 (unknown) (no date) (unknown) [facility] (no value) [facility] Result panel 4285 (unknown) (no date) (unknown) [facility] (no value) [facility] Result panel 4286 (unknown) (no date) (unknown) [facility] (no value) [facility] Result panel 4287 (unknown) (no date) (unknown) [facility] (no value) [facility] Result panel 4288 (unknown) (no date) (unknown) [facility] (no value) [facility] Result panel 4289 (unknown) (no date) (unknown) [facility] (no value) [facility] Result panel 4290 (unknown) (no date) (unknown) [facility] (no value) [facility] Result panel 4291 (unknown) (no date) (unknown) [facility] (no value) [facility] Result panel 4292 (unknown) (no date) (unknown) [facility] (no value) [facility] Result panel 4293 (unknown) (no date) (unknown) [facility] (no value) [facility] Result panel 4294 (unknown) (no date) (unknown) [facility] (no value) [facility] Result panel 4295 (unknown) (no date) (unknown) [facility] (no value) [facility] Result panel 4296 (unknown) (no date) (unknown) [facility] (no value) [facility] Result panel 4297 (unknown) (no date) (unknown) [facility] (no value) [facility] Result panel 4298 (unknown) (no date) (unknown) [facility] (no value) [facility] Result panel 4299 (unknown) (no date) (unknown) [facility] (no value) [facility] Result panel 4300 (unknown) (no date) (unknown) [facility] (no value) [facility] Result panel 4301 (unknown) (no date) (unknown) [facility] (no value) [facility] Result panel 4302 (unknown) (no date) (unknown) [facility] (no value) [facility] Result panel 4303 (unknown) (no date) (unknown) [facility] (no value) [facility] Result panel 4304 (unknown) (no date) (unknown) [facility] (no value) [facility] Result panel 4305 (unknown) (no date) (unknown) [facility] (no value) [facility] Result panel 4306 (unknown) (no date) (unknown) [facility] (no value) [facility] Result panel 4307 (unknown) (no date) (unknown) [facility] (no value) [facility] Result panel 4308 (unknown) (no date) (unknown) [facility] (no value) [facility] Result panel 4309 (unknown) (no date) (unknown) [facility] (no value) [facility] Result panel 4310 (unknown) (no date) (unknown) [facility] (no value) [facility] Result panel 4311 (unknown) (no date) (unknown) [facility] (no value) [facility] Result panel 4312 (unknown) (no date) (unknown) [facility] (no value) [facility] Result panel 4313 (unknown) (no date) (unknown) [facility] (no value) [facility] Result panel 4314 (unknown) (no date) (unknown) [facility] (no value) [facility] Result panel 4315 (unknown) (no date) (unknown) [facility] (no value) [facility] Result panel 4316 (unknown) (no date) (unknown) [facility] (no value) [facility] Result panel 4317 (unknown) (no date) (unknown) [facility] (no value) [facility] Result panel 4318 (unknown) (no date) (unknown) [facility] (no value) [facility] Result panel 4319 (unknown) (no date) (unknown) [facility] (no value) [facility] Result panel 4320 (unknown) (no date) (unknown) [facility] (no value) [facility] Result panel 4321 (unknown) (no date) (unknown) [facility] (no value) [facility] Result panel 4322 (unknown) (no date) (unknown) [facility] (no value) [facility] Result panel 4323 (unknown) (no date) (unknown) [facility] (no value) [facility] Result panel 4324 (unknown) (no date) (unknown) [facility] (no value) [facility] Result panel 4325 (unknown) (no date) (unknown) [facility] (no value) [facility] Result panel 4326 (unknown) (no date) (unknown) [facility] (no value) [facility] Result panel 4327 (unknown) (no date) (unknown) [facility] (no value) [facility] Result panel 4328 (unknown) (no date) (unknown) [facility] value[facility] Result panel 4329 (unknown) (no date) (unknown) [facility] ([facility] value) [facility] Result panel 4330 (unknown) (no date) (unknown) [facility] (no value) [facility] Result panel 4331 (unknown) (no date) (unknown) [facility] (no value) [facility] Result panel 4332 (unknown) (no date) (unknown) [facility] (no value) [facility] Result panel 4333 (unknown) (no date) (unknown) [facility] (no value) [facility] Result panel 4334 (unknown) (no date) (unknown) [facility] (no value) [facility] Result panel 4335 (unknown) (no date) (unknown) [facility] (no value) [facility] Result panel 4336 (unknown) (no date) (unknown) [facility] (no value) [facility] Result panel 4337 (unknown) (no date) (unknown) [facility] (no value) [facility] Result panel 4338 (unknown) (no date) (unknown) [facility] (no value) [facility] Result panel 4339 (unknown) (no date) (unknown) [facility] (no value) [facility] Result panel 4340 (unknown) (no date) (unknown) [facility] (no value) [facility] Result panel 4341 (unknown) (no date) (unknown) [facility] (no value) [facility] Result panel 4342 (unknown) (no date) (unknown) [facility] (no value) [facility] Result panel 4343 (unknown) (no date) (unknown) [facility] (no value) [facility] Result panel 4344 (unknown) (no date) (unknown) [facility] (no value) [facility] Result panel 4345 (unknown) (no date) (unknown) [facility] (no value) [facility] Result panel 4346 (unknown) (no date) (unknown) [facility] (no value) [facility] Result panel 4347 (unknown) (no date) (unknown) [facility] (no value) [facility] Result panel 4348 (unknown) (no date) (unknown) [facility] (no value) [facility] Result panel 4349 (unknown) (no date) (unknown) [facility] (no value) [facility] Result panel 4350 (unknown) (no date) (unknown) [facility] (no value) [facility] Result panel 4351 (unknown) (no date) (unknown) [facility] (no value) [facility] Result panel 4352 (unknown) (no date) (unknown) [facility] (no value) [facility] Result panel 4353 (unknown) (no date) (unknown) [facility] (no value) [facility] Result panel 4354 (unknown) (no date) (unknown) [facility] (no value) [facility] Result panel 4355 (unknown) (no date) (unknown) [facility] (no value) [facility] Result panel 4356 (unknown) (no date) (unknown) [facility] (no value) [facility] Result panel 4357 (unknown) (no date) (unknown) [facility] (no value) [facility] Result panel 4358 (unknown) (no date) (unknown) [facility] (no value) [facility] Result panel 4359 (unknown) (no date) (unknown) [facility] (no value) [facility] Result panel 4360 (unknown) (no date) (unknown) [facility] (no value) [facility] Result panel 4361 (unknown) (no date) (unknown) [facility] (no value) [facility] Result panel 4362 (unknown) (no date) (unknown) [facility] (no value) [facility] Result panel 4363 (unknown) (no date) (unknown) [facility] (no value) [facility] Result panel 4364 (unknown) (no date) (unknown) [facility] (no value) [facility] Result panel 4365 (unknown) (no date) (unknown) [facility] (no value) [facility] Result panel 4366 (unknown) (no date) (unknown) [facility] (no value) [facility] Result panel 4367 (unknown) (no date) (unknown) [facility] (no value) [facility] Result panel 4368 (unknown) (no date) (unknown) [facility] (no value) [facility] Result panel 4369 (unknown) (no date) (unknown) [facility] (no value) [facility] Result panel 4370 (unknown) (no date) (unknown) [facility] (no value) [facility] Result panel 4371 (unknown) (no date) (unknown) [facility] (no value) [facility] Result panel 4372 (unknown) (no date) (unknown) [facility] (no value) [facility] Result panel 4373 (unknown) (no date) (unknown) [facility] (no value) [facility] Result panel 4374 (unknown) (no date) (unknown) [facility] (no value) [facility] Result panel 4375 (unknown) (no date) (unknown) [facility] (no value) [facility] Result panel 4376 (unknown) (no date) (unknown) [facility] (no value) [facility] Result panel 4377 (unknown) (no date) (unknown) [facility] (no value) [facility] Result panel 4378 (unknown) (no date) (unknown) [facility] (no value) [facility] Result panel 4379 (unknown) (no date) (unknown) [facility] (no value) [facility] Result panel 4380 (unknown) (no date) (unknown) [facility] (no value) [facility] Result panel 4381 (unknown) (no date) (unknown) [facility] (no value) [facility] Result panel 4382 (unknown) (no date) (unknown) [facility] (no value) [facility] Result panel 4383 (unknown) (no date) (unknown) [facility] (no value) [facility] Result panel 4384 (unknown) (no date) (unknown) [facility] (no value) [facility] Result panel 4385 (unknown) (no date) (unknown) [facility] (no value) [facility] Result panel 4386 (unknown) (no date) (unknown) [facility] (no value) [facility] Result panel 4387 (unknown) (no date) (unknown) [facility] (no value) [facility] Result panel 4388 (unknown) (no date) (unknown) [facility] (no value) [facility] Result panel 4389 (unknown) (no date) (unknown) [facility] (no value) [facility] Result panel 4390 (unknown) (no date) (unknown) [facility] (no value) [facility] Result panel 4391 (unknown) (no date) (unknown) [facility] (no value) [facility] Result panel 4392 (unknown) (no date) (unknown) [facility] (no value) [facility] Result panel 4393 (unknown) (no date) (unknown) [facility] (no value) [facility] Result panel 4394 (unknown) (no date) (unknown) [facility] (no value) [facility] Result panel 4395 (unknown) (no date) (unknown) [facility] (no value) [facility] Result panel 4396 (unknown) (no date) (unknown) [facility] (no value) [facility] Result panel 4397 (unknown) (no date) (unknown) [facility] (no value) [facility] Result panel 4398 (unknown) (no date) (unknown) [facility] (no value) [facility] Result panel 4399 (unknown) (no date) (unknown) [facility] (no value) [facility] Result panel 4400 (unknown) (no date) (unknown) [facility] (no value) [facility] Result panel 4401 (unknown) (no date) (unknown) [facility] (no value) [facility] Result panel 4402 (unknown) (no date) (unknown) [facility] (no value) [facility] Result panel 4403 (unknown) (no date) (unknown) [facility] (no value) [facility] Result panel 4404 (unknown) (no date) (unknown) [facility] (no value) [facility] Result panel 4405 (unknown) (no date) (unknown) [facility] (no value) [facility] Result panel 4406 (unknown) (no date) (unknown) [facility] (no value) [facility] Result panel 4407 (unknown) (no date) (unknown) [facility] (no value) [facility] Result panel 4408 (unknown) (no date) (unknown) [facility] (no value) [facility] Result panel 4409 (unknown) (no date) (unknown) [facility] (no value) [facility] Result panel 4410 (unknown) (no date) (unknown) [facility] (no value) [facility] Result panel 4411 (unknown) (no date) (unknown) [facility] (no value) [facility] Result panel 4412 (unknown) (no date) (unknown) [facility] (no value) [facility] Result panel 4413 (unknown) (no date) (unknown) [facility] (no value) [facility] Result panel 4414 (unknown) (no date) (unknown) [facility] (no value) [facility] Result panel 4415 (unknown) (no date) (unknown) [facility] (no value) [facility] Result panel 4416 (unknown) (no date) (unknown) [facility] (no value) [facility] Result panel 4417 (unknown) (no date) (unknown) [facility] (no value) [facility] Result panel 4418 (unknown) (no date) (unknown) [facility] (no value) [facility] Result panel 4419 (unknown) (no date) (unknown) [facility] (no value) [facility] Result panel 4420 (unknown) (no date) (unknown) [facility] (no value) [facility] Result panel 4421 (unknown) (no date) (unknown) [facility] (no value) [facility] Result panel 4422 (unknown) (no date) (unknown) [facility] (no value) [facility] Result panel 4423 (unknown) (no date) (unknown) [facility] (no value) [facility] Result panel 4424 (unknown) (no date) (unknown) [facility] (no value) [facility] Result panel 4425 (unknown) (no date) (unknown) [facility] (no value) [facility] Result panel 4426 (unknown) (no date) (unknown) [facility] (no value) [facility] Result panel 4427 (unknown) (no date) (unknown) [facility] (no value) [facility] Result panel 4428 (unknown) (no date) (unknown) [facility] (no value) [facility] Result panel 4429 (unknown) (no date) (unknown) [facility] (no value) [facility] Result panel 4430 (unknown) (no date) (unknown) [facility] (no value) [facility] Result panel 4431 (unknown) (no date) (unknown) [facility] (no value) [facility] Result panel 4432 (unknown) (no date) (unknown) [facility] (no value) [facility] Result panel 4433 (unknown) (no date) (unknown) [facility] (no value) [facility] Result panel 4434 (unknown) (no date) (unknown) [facility] (no value) [facility] Result panel 4435 (unknown) (no date) (unknown) [facility] (no value) [facility] Result panel 4436 (unknown) (no date) (unknown) [facility] (no value) [facility] Result panel 4437 (unknown) (no date) (unknown) [facility] (no value) [facility] Result panel 4438 (unknown) (no date) (unknown) [facility] (no value) [facility] Result panel 4439 (unknown) (no date) (unknown) [facility] (no value) [facility] Result panel 4440 (unknown) (no date) (unknown) [facility] (no value) [facility] Result panel 4441 (unknown) (no date) (unknown) [facility] (no value) [facility] Result panel 4442 (unknown) (no date) (unknown) [facility] (no value) [facility] Result panel 4443 (unknown) (no date) (unknown) [facility] (no value) [facility] Result panel 4444 (unknown) (no date) (unknown) [facility] (no value) [facility] Result panel 4445 (unknown) (no date) (unknown) [facility] (no value) [facility] Result panel 4446 (unknown) (no date) (unknown) [facility] (no value) [facility] Result panel 4447 (unknown) (no date) (unknown) [facility] (no value) [facility] Result panel 4448 (unknown) (no date) (unknown) [facility] (no value) [facility] Result panel 4449 (unknown) (no date) (unknown) [facility] (no value) [facility] Result panel 4450 (unknown) (no date) (unknown) [facility] (no value) [facility] Result panel 4451 (unknown) (no date) (unknown) [facility] (no value) [facility] Result panel 4452 (unknown) (no date) (unknown) [facility] (no value) [facility] Result panel 4453 (unknown) (no date) (unknown) [facility] (no value) [facility] Result panel 4454 (unknown) (no date) (unknown) [facility] (no value) [facility] Result panel 4455 (unknown) (no date) (unknown) [facility] (no value) [facility] Result panel 4456 (unknown) (no date) (unknown) [facility] (no value) [facility] Result panel 4457 (unknown) (no date) (unknown) [facility] (no value) [facility] Result panel 4458 (unknown) (no date) (unknown) [facility] (no value) [facility] Result panel 4459 (unknown) (no date) (unknown) [facility] (no value) [facility] Result panel 4460 (unknown) (no date) (unknown) [facility] (no value) [facility] Result panel 4461 (unknown) (no date) (unknown) [facility] (no value) [facility] Result panel 4462 (unknown) (no date) (unknown) [facility] (no value) [facility] Result panel 4463 (unknown) (no date) (unknown) [facility] (no value) [facility] Result panel 4464 (unknown) (no date) (unknown) [facility] (no value) [facility] Result panel 4465 (unknown) (no date) (unknown) [facility] (no value) [facility] Result panel 4466 (unknown) (no date) (unknown) [facility] (no value) [facility] Result panel 4467 (unknown) (no date) (unknown) [facility] (no value) [facility] Result panel 4468 (unknown) (no date) (unknown) [facility] (no value) [facility] Result panel 4469 (unknown) (no date) (unknown) [facility] (no value) [facility] Result panel 4470 (unknown) (no date) (unknown) [facility] (no value) [facility] Result panel 4471 (unknown) (no date) (unknown) [facility] (no value) [facility] Result panel 4472 (unknown) (no date) (unknown) [facility] (no value) [facility] Result panel 4473 (unknown) (no date) (unknown) [facility] (no value) [facility] Result panel 4474 (unknown) (no date) (unknown) [facility] (no value) [facility] Result panel 4475 (unknown) (no date) (unknown) [facility] (no value) [facility] Result panel 4476 (unknown) (no date) (unknown) [facility] (no value) [facility] Result panel 4477 (unknown) (no date) (unknown) [facility] (no value) [facility] Result panel 4478 (unknown) (no date) (unknown) [facility] (no value) [facility] Result panel 4479 (unknown) (no date) (unknown) [facility] (no value) [facility] Result panel 4480 (unknown) (no date) (unknown) [facility] (no value) [facility] Result panel 4481 (unknown) (no date) (unknown) [facility] (no value) [facility] Result panel 4482 (unknown) (no date) (unknown) [facility] (no value) [facility] Result panel 4483 (unknown) (no date) (unknown) [facility] (no value) [facility] Result panel 4484 (unknown) (no date) (unknown) [facility] (no value) [facility] Result panel 4485 (unknown) (no date) (unknown) [facility] (no value) [facility] Result panel 4486 (unknown) (no date) (unknown) [facility] (no value) [facility] Result panel 4487 (unknown) (no date) (unknown) [facility] (no value) [facility] Result panel 4488 (unknown) (no date) (unknown) [facility] (no value) [facility] Result panel 4489 (unknown) (no date) (unknown) [facility] (no value) [facility] Result panel 4490 (unknown) (no date) (unknown) [facility] (no value) [facility] Result panel 4491 (unknown) (no date) (unknown) [facility] (no value) [facility] Result panel 4492 (unknown) (no date) (unknown) [facility] (no value) [facility] Result panel 4493 (unknown) (no date) (unknown) [facility] (no value) [facility] Result panel 4494 (unknown) (no date) (unknown) [facility] (no value) [facility] Result panel 4495 (unknown) (no date) (unknown) [facility] (no value) [facility] Result panel 4496 (unknown) (no date) (unknown) [facility] (no value) [facility] Result panel 4497 (unknown) (no date) (unknown) [facility] value) [facility] Result panel 4498 (unknown) (no date) (unknown) [facility] (no value) [facility] Result panel 4499 (unknown) (no date) (unknown) [facility] (no value) [facility] Result panel 4500 (unknown) (no date) (unknown) [facility] (no value[facility] Result panel 4501 (unknown) (no date) (unknown) [facility] (no value) [facility] Result panel 4502 (unknown) (no date) (unknown) [facility] (no value) [facility] Result panel 4503 (unknown) (no date) (unknown) [facility] (no value) [facility] Result panel 4504 (unknown) (no date) (unknown) [facility] (no value) [facility] Result panel 4505 (unknown) (no date) (unknown) [facility] (no value) [facility] Result panel 4506 (unknown) (no date) (unknown) [facility] (no value) [facility] Result panel 4507 (unknown) (no date) (unknown) [facility] (no value) [facility] Result panel 4508 (unknown) (no date) (unknown) [facility] (no value) [facility] Result panel 4509 (unknown) (no date) (unknown) [facility] (no value) [facility] Result panel 4510 (unknown) (no date) (unknown) [facility] (no value) [facility] Result panel 4511 (unknown) (no date) (unknown) [facility] (no value) [facility] Result panel 4512 (unknown) (no date) (unknown) [facility] (no value) [facility] Result panel 4513 (unknown) (no date) (unknown) [facility] (no value) [facility] Result panel 4514 (unknown) (no date) (unknown) [facility] (no value) [facility] Result panel 4515 (unknown) (no date) (unknown) [facility] (no value) [facility] Result panel 4516 (unknown) (no date) (unknown) [facility] (no value) [facility] Result panel 4517 (unknown) (no date) (unknown) [facility] (no value) [facility] Result panel 4518 (unknown) (no date) (unknown) [facility] (no value) [facility] Result panel 4519 (unknown) (no date) (unknown) [facility] (no value) [facility] Result panel 4520 (unknown) (no date) (unknown) [facility] (no value) [facility] Result panel 4521 (unknown) (no date) (unknown) [facility] (no value) [facility] Result panel 4522 (unknown) (no date) (unknown) [facility] (no value) [facility] Result panel 4523 (unknown) (no date) (unknown) [facility] (no value) [facility] Result panel 4524 (unknown) (no date) (unknown) [facility] (no value) [facility] Result panel 4525 (unknown) (no date) (unknown) [facility] (no value) [facility] Result panel 4526 (unknown) (no date) (unknown) [facility] (no value) [facility] Result panel 4527 (unknown) (no date) (unknown) [facility] (no value) [facility] Result panel 4528 (unknown) (no date) (unknown) [facility] (no value) [facility] Result panel 4529 (unknown) (no date) (unknown) [facility] (no value) [facility] Result panel 4530 (unknown) (no date) (unknown) [facility] (no value) [facility] Result panel 4531 (unknown) (no date) (unknown) [facility] (no value) [facility] Result panel 4532 (unknown) (no date) (unknown) [facility] (no value) [facility] Result panel 4533 (unknown) (no date) (unknown) [facility] (no value) [facility] Result panel 4534 (unknown) (no date) (unknown) [facility] (no value) [facility] Result panel 4535 (unknown) (no date) (unknown) [facility] (no value) [facility] Result panel 4536 (unknown) (no date) (unknown) [facility] (no value) [facility] Result panel 4537 (unknown) (no date) (unknown) [facility] (no value) [facility] Result panel 4538 (unknown) (no date) (unknown) [facility] (no value) [facility] Result panel 4539 (unknown) (no date) (unknown) [facility] (no value) [facility] Result panel 4540 (unknown) (no date) (unknown) [facility] (no value) [facility] Result panel 4541 (unknown) (no date) (unknown) [facility] (no value) [facility] Result panel 4542 (unknown) (no date) (unknown) [facility] (no value) [facility] Result panel 4543 (unknown) (no date) (unknown) [facility] (no value) [facility] Result panel 4544 (unknown) (no date) (unknown) [facility] (no value) [facility] Result panel 4545 (unknown) (no date) (unknown) [facility] (no value) [facility] Result panel 4546 (unknown) (no date) (unknown) [facility] (no value) [facility] Result panel 4547 (unknown) (no date) (unknown) [facility] (no value) [facility] Result panel 4548 (unknown) (no date) (unknown) [facility] (no value) [facility] Result panel 4549 (unknown) (no date) (unknown) [facility] (no value) [facility] Result panel 4550 (unknown) (no date) (unknown) [facility] (no value) [facility] Result panel 4551 (unknown) (no date) (unknown) [facility] (no value) [facility] Result panel 4552 (unknown) (no date) (unknown) [facility] (no value) [facility] Result panel 4553 (unknown) (no date) (unknown) [facility] (no value) [facility] Result panel 4554 (unknown) (no date) (unknown) [facility] (no value) [facility] Result panel 4555 (unknown) (no date) (unknown) [facility] (no value) [facility] Result panel 4556 (unknown) (no date) (unknown) [facility] (no value) [facility] Result panel 4557 (unknown) (no date) (unknown) [facility] (no value) [facility] Result panel 4558 (unknown) (no date) (unknown) [facility] (no value) [facility] Result panel 4559 (unknown) (no date) (unknown) [facility] (no value) [facility] Result panel 4560 (unknown) (no date) (unknown) [facility] (no value) [facility] Result panel 4561 (unknown) (no date) (unknown) [facility] (no value) [facility] Result panel 4562 (unknown) (no date) (unknown) [facility] (no value) [facility] Result panel 4563 (unknown) (no date) (unknown) [facility] (no value) [facility] Result panel 4564 (unknown) (no date) (unknown) [facility] (no value) [facility] Result panel 4565 (unknown) (no date) (unknown) [facility] (no value) [facility] Result panel 4566 (unknown) (no date) (unknown) [facility] (no value) [facility] Result panel 4567 (unknown) (no date) (unknown) [facility] (no value) [facility] Result panel 4568 (unknown) (no date) (unknown) [facility] (no value) [facility] Result panel 4569 (unknown) (no date) (unknown) [facility] (no value) [facility] Result panel 4570 (unknown) (no date) (unknown) [facility] (no value) [facility] Result panel 4571 (unknown) (no date) (unknown) [facility] (no value) [facility] Result panel 4572 (unknown) (no date) (unknown) [facility] (no value) [facility] Result panel 4573 (unknown) (no date) (unknown) [facility] (no value) [facility] Result panel 4574 (unknown) (no date) (unknown) [facility] (no value) [facility] Result panel 4575 (unknown) (no date) (unknown) [facility] (no value) [facility] Result panel 4576 (unknown) (no date) (unknown) [facility] (no value) [facility] Result panel 4577 (unknown) (no date) (unknown) [facility] (no value) [facility] Result panel 4578 (unknown) (no date) (unknown) [facility] (no value) [facility] Result panel 4579 (unknown) (no date) (unknown) [facility] (no value) [facility] Result panel 4580 (unknown) (no date) (unknown) [facility] (no value) [facility] Result panel 4581 (unknown) (no date) (unknown) [facility] (no value) [facility] Result panel 4582 (unknown) (no date) (unknown) [facility] (no value) [facility] Result panel 4583 (unknown) (no date) (unknown) [facility] (no value) [facility] Result panel 4584 (unknown) (no date) (unknown) [facility] (no value) [facility] Result panel 4585 (unknown) (no date) (unknown) [facility] (no value) [facility] Result panel 4586 (unknown) (no date) (unknown) [facility] (no value) [facility] Result panel 4587 (unknown) (no date) (unknown) [facility] (no value) [facility] Result panel 4588 (unknown) (no date) (unknown) [facility] (no value) [facility] Result panel 4589 (unknown) (no date) (unknown) [facility] (no value) [facility] Result panel 4590 (unknown) (no date) (unknown) [facility] (no value) [facility] Result panel 4591 (unknown) (no date) (unknown) [facility] (no value) [facility] Result panel 4592 (unknown) (no date) (unknown) [facility] (no value) [facility] Result panel 4593 (unknown) (no date) (unknown) [facility] (no value) [facility] Result panel 4594 (unknown) (no date) (unknown) [facility]no value[facility] Result panel 4595 (unknown) (no date) (unknown) [facility] (no value) [facility] Result panel 4596 (unknown) (no date) (unknown) [facility] (no value) [facility] Result panel 4597 (unknown) (no date) (unknown) [facility] (no value) [facility] Result panel 4598 (unknown) (no date) (unknown) [facility] (no value) [facility] Result panel 4599 (unknown) (no date) (unknown) [facility] (no value) [facility] Result panel 4600 (unknown) (no date) (unknown) [facility]no value) [facility] Result panel 4601 (unknown) (no date) (unknown) [facility] (no value) [facility] Result panel 4602 (unknown) (no date) (unknown) [facility] (no value) [facility] Result panel 4603 (unknown) (no date) (unknown) [facility] (no value) [facility] Result panel 4604 (unknown) (no date) (unknown) [facility] (no value) [facility] Result panel 4605 (unknown) (no date) (unknown) [facility] (no value) [facility] Result panel 4606 (unknown) (no date) (unknown) [facility] (no value) [facility] Result panel 4607 (unknown) (no date) (unknown) [facility] (no value) [facility] Result panel 4608 (unknown) (no date) (unknown) [facility] (no value) [facility] Result panel 4609 (unknown) (no date) (unknown) [facility] (no value) [facility] Result panel 4610 (unknown) (no date) (unknown) [facility] (no value) [facility] Result panel 4611 (unknown) (no date) (unknown) [facility] (no value) [facility] Result panel 4612 (unknown) (no date) (unknown) [facility] (no value) [facility] Result panel 4613 (unknown) (no date) (unknown) [facility] (no value) [facility] Result panel 4614 (unknown) (no date) (unknown) [facility] (no value) [facility] Result panel 4615 (unknown) (no date) (unknown) [facility] (no value) [facility] Result panel 4616 (unknown) (no date) (unknown) [facility] (no value) [facility] Result panel 4617 (unknown) (no date) (unknown) [facility] (no value) [facility] Result panel 4618 (unknown) (no date) (unknown) [facility] (no value) [facility] Result panel 4619 (unknown) (no date) (unknown) [facility] (no value) [facility] Result panel 4620 (unknown) (no date) (unknown) [facility] (no value) [facility] Result panel 4621 (unknown) (no date) (unknown) [facility] (no value) [facility] Result panel 4622 (unknown) (no date) (unknown) [facility] (no value) [facility] Result panel 4623 (unknown) (no date) (unknown) [facility] (no value) [facility] Result panel 4624 (unknown) (no date) (unknown) [facility] (no value) [facility] Result panel 4625 (unknown) (no date) (unknown) [facility] (no value) [facility] Result panel 4626 (unknown) (no date) (unknown) [facility] (no value) [facility] Result panel 4627 (unknown) (no date) (unknown) [facility] (no value) [facility] Result panel 4628 (unknown) (no date) (unknown) [facility] (no value) [facility] Result panel 4629 (unknown) (no date) (unknown) [facility] (no value) [facility] Result panel 4630 (unknown) (no date) (unknown) [facility] Result panel 4631 (unknown) (no date) (unknown) [facility] (no value) [facility] Result panel 4632 (unknown) (no date) (unknown) [facility] (no value) [facility] Result panel 4633 (unknown) (no date) (unknown) [facility] (no value) [facility] Result panel 4634 (unknown) (no date) (unknown) [facility] (no value) [facility] Result panel 4635 (unknown) (no date) (unknown) [facility] (no value) [facility] Result panel 4636 (unknown) (no date) (unknown) [facility] (no value) [facility] Result panel 4637 (unknown) (no date) (unknown) [facility] (no value) [facility] Result panel 4638 (unknown) (no date) (unknown) [facility] (no value) [facility] Result panel 4639 (unknown) (no date) (unknown) [facility] (no value) [facility] Result panel 4640 (unknown) (no date) (unknown) [facility] (no value) [facility] Result panel 4641 (unknown) (no date) (unknown) [facility] (no value) [facility] Result panel 4642 (unknown) (no date) (unknown) [facility] (no value) [facility] Result panel 4643 (unknown) (no date) (unknown) [facility] (no value) [facility] Result panel 4644 (unknown) (no date) (unknown) [facility] (no value) [facility] Result panel 4645 (unknown) (no date) (unknown) [facility] (no value) [facility] Result panel 4646 (unknown) (no date) (unknown) [facility] (no value) [facility] Result panel 4647 (unknown) (no date) (unknown) [facility] (no value) [facility] Result panel 4648 (unknown) (no date) (unknown) [facility] (no value) [facility] Result panel 4649 (unknown) (no date) (unknown) [facility] (no value) [facility] Result panel 4650 (unknown) (no date) (unknown) [facility] (no value) [facility] Result panel 4651 (unknown) (no date) (unknown) [facility] (no value) [facility] Result panel 4652 (unknown) (no date) (unknown) [facility] (no value) [facility] Result panel 4653 (unknown) (no date) (unknown) [facility] (no value) [facility] Result panel 4654 (unknown) (no date) (unknown) [facility] (no value) [facility] Result panel 4655 (unknown) (no date) (unknown) [facility] (no value) [facility] Result panel 4656 (unknown) (no date) (unknown) [facility] (no value) [facility] Result panel 4657 (unknown) (no date) (unknown) [facility] (no value) [facility] Result panel 4658 (unknown) (no date) (unknown) [facility] (no value) [facility] Result panel 4659 (unknown) (no date) (unknown) [facility] (no value) [facility] Result panel 4660 (unknown) (no date) (unknown) [facility] (no value) [facility] Result panel 4661 (unknown) (no date) (unknown) [facility] (no value) [facility] Result panel 4662 (unknown) (no date) (unknown) [facility] (no value) [facility] Result panel 4663 (unknown) (no date) (unknown) [facility] (no value) [facility] Result panel 4664 (unknown) (no date) (unknown) [facility] (no value) [facility] Result panel 4665 (unknown) (no date) (unknown) [facility] (no value) [facility] Result panel 4666 (unknown) (no date) (unknown) [facility] value[facility] Result panel 4667 (unknown) (no date) (unknown) [facility] (no value) [facility] Result panel 4668 (unknown) (no date) (unknown) [facility] (no value) [facility] Result panel 4669 (unknown) (no date) (unknown) [facility] (no value) [facility] Result panel 4670 (unknown) (no date) (unknown) [facility] (no value) [facility] Result panel 4671 (unknown) (no date) (unknown) [facility] (no value) [facility] Result panel 4672 (unknown) (no date) (unknown) [facility] (no value) [facility] Result panel 4673 (unknown) (no date) (unknown) [facility] (no value) [facility] Result panel 4674 (unknown) (no date) (unknown) [facility] (no value) [facility] Result panel 4675 (unknown) (no date) (unknown) [facility] (no value) [facility] Result panel 4676 (unknown) (no date) (unknown) [facility] (no value) [facility] Result panel 4677 (unknown) (no date) (unknown) [facility] (no value) [facility] Result panel 4678 (unknown) (no date) (unknown) [facility] (no value) [facility] Result panel 4679 (unknown) (no date) (unknown) [facility] (no value) [facility] Result panel 4680 (unknown) (no date) (unknown) [facility] (no value) [facility] Result panel 4681 (unknown) (no date) (unknown) [facility] (no value) [facility] Result panel 4682 (unknown) (no date) (unknown) [facility] (no value) [facility] Result panel 4683 (unknown) (no date) (unknown) [facility] (no value) [facility] Result panel 4684 (unknown) (no date) (unknown) [facility] (no value) [facility] Result panel 4685 (unknown) (no date) (unknown) [facility] (no value) [facility] Result panel 4686 (unknown) (no date) (unknown) [facility] (no value) [facility] Result panel 4687 (unknown) (no date) (unknown) [facility] (no value) [facility] Result panel 4688 (unknown) (no date) (unknown) [facility] (no value) [facility] Result panel 4689 (unknown) (no date) (unknown) [facility] (no value) [facility] Result panel 4690 (unknown) (no date) (unknown) [facility] (no value) [facility] Result panel 4691 (unknown) (no date) (unknown) [facility] (no value) [facility] Result panel 4692 (unknown) (no date) (unknown) [facility] (no value) [facility] Result panel 4693 (unknown) (no date) (unknown) [facility] (no value) [facility] Result panel 4694 (unknown) (no date) (unknown) [facility] (no value) [facility] Result panel 4695 (unknown) (no date) (unknown) [facility] (no value) [facility] Result panel 4696 (unknown) (no date) (unknown) [facility] (no value) [facility] Result panel 4697 (unknown) (no date) (unknown) [facility] (no value) [facility] Result panel 4698 (unknown) (no date) (unknown) [facility] (no value) [facility] Result panel 4699 (unknown) (no date) (unknown) [facility] (no value) [facility] Result panel 4700 (unknown) (no date) (unknown) [facility] (no value) [facility] Result panel 4701 (unknown) (no date) (unknown) [facility] (no value) [facility] Result panel 4702 (unknown) (no date) (unknown) [facility] (no value) [facility] Result panel 4703 (unknown) (no date) (unknown) [facility] (no value) [facility] Result panel 4704 (unknown) (no date) (unknown) [facility] (no value) [facility] Result panel 4705 (unknown) (no date) (unknown) [facility] (no value) [facility] Result panel 4706 (unknown) (no date) (unknown) [facility] (no value) [facility] Result panel 4707 (unknown) (no date) (unknown) [facility] (no value) [facility] Result panel 4708 (unknown) (no date) (unknown) [facility] (no value) [facility] Result panel 4709 (unknown) (no date) (unknown) [facility] (no value) [facility] Result panel 4710 (unknown) (no date) (unknown) [facility] (no value) [facility] Result panel 4711 (unknown) (no date) (unknown) [facility] (no value) [facility] Result panel 4712 (unknown) (no date) (unknown) [facility] (no value) [facility] Result panel 4713 (unknown) (no date) (unknown) [facility] (no value) [facility] Result panel 4714 (unknown) (no date) (unknown) [facility] (no value) [facility] Result panel 4715 (unknown) (no date) (unknown) [facility] (no value) [facility] Result panel 4716 (unknown) (no date) (unknown) [facility] (no value) [facility] Result panel 4717 (unknown) (no date) (unknown) [facility] (no value) [facility] Result panel 4718 (unknown) (no date) (unknown) [facility] (no value) [facility] Result panel 4719 (unknown) (no date) (unknown) [facility] (no value) [facility] Result panel 4720 (unknown) (no date) (unknown) [facility] (no value) [facility] Result panel 4721 (unknown) (no date) (unknown) [facility] (no value) [facility] Result panel 4722 (unknown) (no date) (unknown) [facility] (no value) [facility] Result panel 4723 (unknown) (no date) (unknown) [facility] (no value) [facility] Result panel 4724 (unknown) (no date) (unknown) [facility] (no value) [facility] Result panel 4725 (unknown) (no date) (unknown) [facility] (no value) [facility] Result panel 4726 (unknown) (no date) (unknown) [facility] (no value) [facility] Result panel 4727 (unknown) (no date) (unknown) [facility] (no value) [facility] Result panel 4728 (unknown) (no date) (unknown) [facility] (no value) [facility] Result panel 4729 (unknown) (no date) (unknown) [facility] (no value) [facility] Result panel 4730 (unknown) (no date) (unknown) [facility] (no value) [facility] Result panel 4731 (unknown) (no date) (unknown) [facility] (no value) [facility] Result panel 4732 (unknown) (no date) (unknown) [facility] (no value) [facility] Result panel 4733 (unknown) (no date) (unknown) [facility] (no value) [facility] Result panel 4734 (unknown) (no date) (unknown) [facility] (no value) [facility] Result panel 4735 (unknown) (no date) (unknown) [facility] (no value) [facility] Result panel 4736 (unknown) (no date) (unknown) [facility] (no value) [facility] Result panel 4737 (unknown) (no date) (unknown) [facility] (no value) [facility] Result panel 4738 (unknown) (no date) (unknown) [facility] (no value) [facility] Result panel 4739 (unknown) (no date) (unknown) [facility] (no value) [facility] Result panel 4740 (unknown) (no date) (unknown) [facility] (no value) [facility] Result panel 4741 (unknown) (no date) (unknown) [facility] (no value) [facility] Result panel 4742 (unknown) (no date) (unknown) [facility] (no value) [facility] Result panel 4743 (unknown) (no date) (unknown) [facility] (no value) [facility] Result panel 4744 (unknown) (no date) (unknown) [facility] (no value) [facility] Result panel 4745 (unknown) (no date) (unknown) [facility] (no value) [facility] Result panel 4746 (unknown) (no date) (unknown) [facility] (no value) [facility] Result panel 4747 (unknown) (no date) (unknown) [facility] (no value) [facility] Result panel 4748 (unknown) (no date) (unknown) [facility] (no value) [facility] Result panel 4749 (unknown) (no date) (unknown) [facility] (no value) [facility] Result panel 4750 (unknown) (no date) (unknown) [facility] (no value) [facility] Result panel 4751 (unknown) (no date) (unknown) [facility] (no value) [facility] Result panel 4752 (unknown) (no date) (unknown) [facility] (no value) [facility] Result panel 4753 (unknown) (no date) (unknown) [facility] (no value) [facility] Result panel 4754 (unknown) (no date) (unknown) [facility] (no value) [facility] Result panel 4755 (unknown) (no date) (unknown) [facility] (no value) [facility] Result panel 4756 (unknown) (no date) (unknown) [facility] (no value) [facility] Result panel 4757 (unknown) (no date) (unknown) [facility] (no value) [facility] Result panel 4758 (unknown) (no date) (unknown) [facility] (no value) [facility] Result panel 4759 (unknown) (no date) (unknown) [facility] (no value) [facility] Result panel 4760 (unknown) (no date) (unknown) [facility] (no value) [facility] Result panel 4761 (unknown) (no date) (unknown) [facility] (no value) [facility] Result panel 4762 (unknown) (no date) (unknown) [facility] (no value) [facility] Result panel 4763 (unknown) (no date) (unknown) [facility] (no value) [facility] Result panel 4764 (unknown) (no date) (unknown) [facility] (no value) [facility] Result panel 4765 (unknown) (no date) (unknown) [facility] (no value) [facility] Result panel 4766 (unknown) (no date) (unknown) [facility] (no value) [facility] Result panel 4767 (unknown) (no date) (unknown) [facility] (no value) [facility] Result panel 4768 (unknown) (no date) (unknown) [facility] (no value) [facility] Result panel 4769 (unknown) (no date) (unknown) [facility] (no value) [facility] Result panel 4770 (unknown) (no date) (unknown) [facility] (no value) [facility] Result panel 4771 (unknown) (no date) (unknown) [facility] (no value) [facility] Result panel 4772 (unknown) (no date) (unknown) [facility] (no value) [facility] Result panel 4773 (unknown) (no date) (unknown) [facility] (no value) [facility] Result panel 4774 (unknown) (no date) (unknown) [facility] (no value) [facility] Result panel 4775 (unknown) (no date) (unknown) [facility] (no value) [facility] Result panel 4776 (unknown) (no date) (unknown) [facility] (no value) [facility] Result panel 4777 (unknown) (no date) (unknown) [facility] (no value) [facility] Result panel 4778 (unknown) (no date) (unknown) [facility] (no value) [facility] Result panel 4779 (unknown) (no date) (unknown) [facility] (no value) [facility] Result panel 4780 (unknown) (no date) (unknown) [facility] (no value) [facility] Result panel 4781 (unknown) (no date) (unknown) [facility] (no value) [facility] Result panel 4782 (unknown) (no date) (unknown) [facility] (no value) [facility] Result panel 4783 (unknown) (no date) (unknown) [facility] (no value) [facility] Result panel 4784 (unknown) (no date) (unknown) [facility] (no value) [facility] Result panel 4785 (unknown) (no date) (unknown) [facility] (no value) [facility] Result panel 4786 (unknown) (no date) (unknown) [facility] (no value) [facility] Result panel 4787 (unknown) (no date) (unknown) [facility] (no value) [facility] Result panel 4788 (unknown) (no date) (unknown) [facility] (no value) [facility] Result panel 4789 (unknown) (no date) (unknown) [facility] (no value) [facility] Result panel 4790 (unknown) (no date) (unknown) [facility] (no value) [facility] Result panel 4791 (unknown) (no date) (unknown) [facility] (no value) [facility] Result panel 4792 (unknown) (no date) (unknown) [facility] (no value) [facility] Result panel 4793 (unknown) (no date) (unknown) [facility] (no value) [facility] Result panel 4794 (unknown) (no date) (unknown) [facility] (no value) [facility] Result panel 4795 (unknown) (no date) (unknown) [facility] (no value) [facility] Result panel 4796 (unknown) (no date) (unknown) [facility] (no value) [facility] Result panel 4797 (unknown) (no date) (unknown) [facility] (no value) [facility] Result panel 4798 (unknown) (no date) (unknown) [facility] (no value) [facility] Result panel 4799 (unknown) (no date) (unknown) [facility] (no value) [facility] Result panel 4800 (unknown) (no date) (unknown) [facility] (no value) [facility] Result panel 4801 (unknown) (no date) (unknown) [facility] (no value) [facility] Result panel 4802 (unknown) (no date) (unknown) [facility] (no value) [facility] Result panel 4803 (unknown) (no date) (unknown) [facility] (no value) [facility] Result panel 4804 (unknown) (no date) (unknown) [facility] (no value) [facility] Result panel 4805 (unknown) (no date) (unknown) [facility] (no value) [facility] Result panel 4806 (unknown) (no date) (unknown) [facility] (no value) [facility] Result panel 4807 (unknown) (no date) (unknown) [facility] (no value) [facility] Result panel 4808 (unknown) (no date) (unknown) [facility] (no value) [facility] Result panel 4809 (unknown) (no date) (unknown) [facility] (no value) [facility] Result panel 4810 (unknown) (no date) (unknown) [facility] (no value) [facility] Result panel 4811 (unknown) (no date) (unknown) [facility] (no value) [facility] Result panel 4812 (unknown) (no date) (unknown) [facility] (no value) [facility] Result panel 4813 (unknown) (no date) (unknown) [facility] (no value) [facility] Result panel 4814 (unknown) (no date) (unknown) [facility] (no value) [facility] Result panel 4815 (unknown) (no date) (unknown) [facility] (no value) [facility] Result panel 4816 (unknown) (no date) (unknown) [facility] (no value) [facility] Result panel 4817 (unknown) (no date) (unknown) [facility] (no value) [facility] Result panel 4818 (unknown) (no date) (unknown) [facility] (no value) [facility] Result panel 4819 (unknown) (no date) (unknown) [facility] (no value) [facility] Result panel 4820 (unknown) (no date) (unknown) [facility] (no value) [facility] Result panel 4821 (unknown) (no date) (unknown) [facility] (no value) [facility] Result panel 4822 (unknown) (no date) (unknown) [facility] (no value) [facility] Result panel 4823 (unknown) (no date) (unknown) [facility] (no value) [facility] Result panel 4824 (unknown) (no date) (unknown) [facility] (no value) [facility] Result panel 4825 (unknown) (no date) (unknown) [facility] (no value) [facility] Result panel 4826 (unknown) (no date) (unknown) [facility] (no value) [facility] Result panel 4827 (unknown) (no date) (unknown) [facility] (no value) [facility] Result panel 4828 (unknown) (no date) (unknown) [facility] (no value) [facility] Result panel 4829 (unknown) (no date) (unknown) [facility] (no value) [facility] Result panel 4830 (unknown) (no date) (unknown) [facility] (no value) [facility] Result panel 4831 (unknown) (no date) (unknown) [facility] (no value) [facility] Result panel 4832 (unknown) (no date) (unknown) [facility] (no value) [facility] Result panel 4833 (unknown) (no date) (unknown) [facility] (no value) [facility] Result panel 4834 (unknown) (no date) (unknown) [facility] (no value) [facility] Result panel 4835 (unknown) (no date) (unknown) [facility] value[facility] Result panel 4836 (unknown) (no date) (unknown) [facility] (no value) [facility] Result panel 4837 (unknown) (no date) (unknown) [facility] (no value) [facility] Result panel 4838 (unknown) (no date) (unknown) [facility] (no value) [facility] Result panel 4839 (unknown) (no date) (unknown) [facility] (no value) [facility] Result panel 4840 (unknown) (no date) (unknown) [facility] (no value) [facility] Result panel 4841 (unknown) (no date) (unknown) [facility] (no value) [facility] Result panel 4842 (unknown) (no date) (unknown) [facility] (no value) [facility] Result panel 4843 (unknown) (no date) (unknown) [facility] (no value) [facility] Result panel 4844 (unknown) (no date) (unknown) [facility] (no value) [facility] Result panel 4845 (unknown) (no date) (unknown) [facility] (no value) [facility] Result panel 4846 (unknown) (no date) (unknown) [facility] (no value) [facility] Result panel 4847 (unknown) (no date) (unknown) [facility] (no value) [facility] Result panel 4848 (unknown) (no date) (unknown) [facility] (no value) [facility] Result panel 4849 (unknown) (no date) (unknown) [facility] (no value) [facility] Result panel 4850 (unknown) (no date) (unknown) [facility] (no value) [facility] Result panel 4851 (unknown) (no date) (unknown) [facility] (no value) [facility] Result panel 4852 (unknown) (no date) (unknown) [facility] (no value) [facility] Result panel 4853 (unknown) (no date) (unknown) [facility] (no value) [facility] Result panel 4854 (unknown) (no date) (unknown) [facility] (no value) [facility] Result panel 4855 (unknown) (no date) (unknown) [facility] (no value) [facility] Result panel 4856 (unknown) (no date) (unknown) [facility] (no value) [facility] Result panel 4857 (unknown) (no date) (unknown) [facility] (no value) [facility] Result panel 4858 (unknown) (no date) (unknown) [facility] (no value) [facility] Result panel 4859 (unknown) (no date) (unknown) [facility] (no value) [facility] Result panel 4860 (unknown) (no date) (unknown) [facility] (no value) [facility] Result panel 4861 (unknown) (no date) (unknown) [facility] (no value) [facility] Result panel 4862 (unknown) (no date) (unknown) [facility] (no value) [facility] Result panel 4863 (unknown) (no date) (unknown) [facility] (no value) [facility] Result panel 4864 (unknown) (no date) (unknown) [facility] (no value) [facility] Result panel 4865 (unknown) (no date) (unknown) [facility] (no value) [facility] Result panel 4866 (unknown) (no date) (unknown) [facility] (no value) [facility] Result panel 4867 (unknown) (no date) (unknown) [facility] (no value) [facility] Result panel 4868 (unknown) (no date) (unknown) [facility] (no value) [facility] Result panel 4869 (unknown) (no date) (unknown) [facility] (no value) [facility] Result panel 4870 (unknown) (no date) (unknown) [facility] (no value) [facility] Result panel 4871 (unknown) (no date) (unknown) [facility] (no value) [facility] Result panel 4872 (unknown) (no date) (unknown) [facility] (no value) [facility] Result panel 4873 (unknown) (no date) (unknown) [facility] (no value) [facility] Result panel 4874 (unknown) (no date) (unknown) [facility] (no value) [facility] Result panel 4875 (unknown) (no date) (unknown) [facility] (no value) [facility] Result panel 4876 (unknown) (no date) (unknown) [facility] (no value) [facility] Result panel 4877 (unknown) (no date) (unknown) [facility] (no value) [facility] Result panel 4878 (unknown) (no date) (unknown) [facility] (no value) [facility] Result panel 4879 (unknown) (no date) (unknown) [facility] (no value) [facility] Result panel 4880 (unknown) (no date) (unknown) [facility] (no value) [facility] Result panel 4881 (unknown) (no date) (unknown) [facility] (no value) [facility] Result panel 4882 (unknown) (no date) (unknown) [facility] (no value) [facility] Result panel 4883 (unknown) (no date) (unknown) [facility] (no value) [facility] Result panel 4884 (unknown) (no date) (unknown) [facility] (no value) [facility] Result panel 4885 (unknown) (no date) (unknown) [facility] (no value) [facility] Result panel 4886 (unknown) (no date) (unknown) [facility] (no value) [facility] Result panel 4887 (unknown) (no date) (unknown) [facility] (no value) [facility] Result panel 4888 (unknown) (no date) (unknown) [facility] (no value) [facility] Result panel 4889 (unknown) (no date) (unknown) [facility] (no value) [facility] Result panel 4890 (unknown) (no date) (unknown) [facility] (no value) [facility] Result panel 4891 (unknown) (no date) (unknown) [facility] (no value) [facility] Result panel 4892 (unknown) (no date) (unknown) [facility] (no value) [facility] Result panel 4893 (unknown) (no date) (unknown) [facility] (no value) [facility] Result panel 4894 (unknown) (no date) (unknown) [facility] (no value) [facility] Result panel 4895 (unknown) (no date) (unknown) [facility] (no value) [facility] Result panel 4896 (unknown) (no date) (unknown) [facility] (no value) [facility] Result panel 4897 (unknown) (no date) (unknown) [facility] (no value) [facility] Result panel 4898 (unknown) (no date) (unknown) [facility] (no value) [facility] Result panel 4899 (unknown) (no date) (unknown) [facility] (no value) [facility] Result panel 4900 (unknown) (no date) (unknown) [facility] (no value) [facility] Result panel 4901 (unknown) (no date) (unknown) [facility] (no value) [facility] Result panel 4902 (unknown) (no date) (unknown) [facility] (no value) [facility] Result panel 4903 (unknown) (no date) (unknown) [facility] (no value) [facility] Result panel 4904 (unknown) (no date) (unknown) [facility] (no value) [facility] Result panel 4905 (unknown) (no date) (unknown) [facility] (no value) [facility] Result panel 4906 (unknown) (no date) (unknown) [facility] (no value) [facility] Result panel 4907 (unknown) (no date) (unknown) [facility] (no value) [facility] Result panel 4908 (unknown) (no date) (unknown) [facility] (no value) [facility] Result panel 4909 (unknown) (no date) (unknown) [facility] (no value) [facility] Result panel 4910 (unknown) (no date) (unknown) [facility] (no value) [facility] Result panel 4911 (unknown) (no date) (unknown) [facility] (no value) [facility] Result panel 4912 (unknown) (no date) (unknown) [facility] (no value) [facility] Result panel 4913 (unknown) (no date) (unknown) [facility] (no value) [facility] Result panel 4914 (unknown) (no date) (unknown) [facility] (no value) [facility] Result panel 4915 (unknown) (no date) (unknown) [facility] (no value) [facility] Result panel 4916 (unknown) (no date) (unknown) [facility] (no value) [facility] Result panel 4917 (unknown) (no date) (unknown) [facility] (no value) [facility] Result panel 4918 (unknown) (no date) (unknown) [facility] (no value) [facility] Result panel 4919 (unknown) (no date) (unknown) [facility] (no value) [facility] Result panel 4920 (unknown) (no date) (unknown) [facility] (no value) [facility] Result panel 4921 (unknown) (no date) (unknown) [facility] (no value) [facility] Result panel 4922 (unknown) (no date) (unknown) [facility] (no value) [facility] Result panel 4923 (unknown) (no date) (unknown) [facility] value[facility] Result panel 4924 (unknown) (no date) (unknown) [facility] (no value) [facility] Result panel 4925 (unknown) (no date) (unknown) [facility] (no value) [facility] Result panel 4926 (unknown) (no date) (unknown) [facility] (no value) [facility] Result panel 4927 (unknown) (no date) (unknown) [facility] (no value) [facility] Result panel 4928 (unknown) (no date) (unknown) [facility] (no value) [facility] Result panel 4929 (unknown) (no date) (unknown) [facility] (no value) [facility] Result panel 4930 (unknown) (no date) (unknown) [facility] (no value) [facility] Result panel 4931 (unknown) (no date) (unknown) [facility] (no value) [facility] Result panel 4932 (unknown) (no date) (unknown) [facility] (no value) [facility] Result panel 4933 (unknown) (no date) (unknown) [facility] (no value) [facility] Result panel 4934 (unknown) (no date) (unknown) [facility] (no value) [facility] Result panel 4935 (unknown) (no date) (unknown) [facility] (no value) [facility] Result panel 4936 (unknown) (no date) (unknown) [facility] (no value) [facility] Result panel 4937 (unknown) (no date) (unknown) [facility] (no value) [facility] Result panel 4938 (unknown) (no date) (unknown) [facility] (no value) [facility] Result panel 4939 (unknown) (no date) (unknown) [facility] (no value) [facility] Result panel 4940 (unknown) (no date) (unknown) [facility] (no value) [facility] Result panel 4941 (unknown) (no date) (unknown) [facility] (no value) [facility] Result panel 4942 (unknown) (no date) (unknown) [facility] (no value) [facility] Result panel 4943 (unknown) (no date) (unknown) [facility] (no value) [facility] Result panel 4944 (unknown) (no date) (unknown) [facility] (no value) [facility] Result panel 4945 (unknown) (no date) (unknown) [facility] (no value) [facility] Result panel 4946 (unknown) (no date) (unknown) [facility] (no value) [facility] Result panel 4947 (unknown) (no date) (unknown) [facility] (no value) [facility] Result panel 4948 (unknown) (no date) (unknown) [facility] (no value) [facility] Result panel 4949 (unknown) (no date) (unknown) [facility] (no value) [facility] Result panel 4950 (unknown) (no date) (unknown) [facility] (no value) [facility] Result panel 4951 (unknown) (no date) (unknown) [facility] (no value) [facility] Result panel 4952 (unknown) (no date) (unknown) [facility] (no value) [facility] Result panel 4953 (unknown) (no date) (unknown) [facility] (no value) [facility] Result panel 4954 (unknown) (no date) (unknown) [facility] (no value) [facility] Result panel 4955 (unknown) (no date) (unknown) [facility] (no value) [facility] Result panel 4956 (unknown) (no date) (unknown) [facility] (no value) [facility] Result panel 4957 (unknown) (no date) (unknown) [facility] (no value) [facility] Result panel 4958 (unknown) (no date) (unknown) [facility] (no value) [facility] Result panel 4959 (unknown) (no date) (unknown) [facility] (no value) [facility] Result panel 4960 (unknown) (no date) (unknown) [facility] (no value) [facility] Result panel 4961 (unknown) (no date) (unknown) [facility] (no value) [facility] Result panel 4962 (unknown) (no date) (unknown) [facility] (no value) [facility] Result panel 4963 (unknown) (no date) (unknown) [facility] (no value) [facility] Result panel 4964 (unknown) (no date) (unknown) [facility] (no value) [facility] Result panel 4965 (unknown) (no date) (unknown) [facility] (no value) [facility] Result panel 4966 (unknown) (no date) (unknown) [facility] (no value) [facility] Result panel 4967 (unknown) (no date) (unknown) [facility] (no value) [facility] Result panel 4968 (unknown) (no date) (unknown) [facility] (no value) [facility] Result panel 4969 (unknown) (no date) (unknown) [facility] (no value) [facility] Result panel 4970 (unknown) (no date) (unknown) [facility] (no value) [facility] Result panel 4971 (unknown) (no date) (unknown) [facility] (no value) [facility] Result panel 4972 (unknown) (no date) (unknown) [facility] (no value) [facility] Result panel 4973 (unknown) (no date) (unknown) [facility] (no value) [facility] Result panel 4974 (unknown) (no date) (unknown) [facility] (no value) [facility] Result panel 4975 (unknown) (no date) (unknown) [facility] (no value) [facility] Result panel 4976 (unknown) (no date) (unknown) [facility] (no value) [facility] Result panel 4977 (unknown) (no date) (unknown) [facility] (no value) [facility] Result panel 4978 (unknown) (no date) (unknown) [facility] (no value) [facility] Result panel 4979 (unknown) (no date) (unknown) [facility] (no value) [facility] Result panel 4980 (unknown) (no date) (unknown) [facility] (no value) [facility] Result panel 4981 (unknown) (no date) (unknown) [facility] (no value) [facility] Result panel 4982 (unknown) (no date) (unknown) [facility] (no value) [facility] Result panel 4983 (unknown) (no date) (unknown) [facility] (no value) [facility] Result panel 4984 (unknown) (no date) (unknown) [facility] (no value) [facility] Result panel 4985 (unknown) (no date) (unknown) [facility] (no value) [facility] Result panel 4986 (unknown) (no date) (unknown) [facility] (no value) [facility] Result panel 4987 (unknown) (no date) (unknown) [facility] (no value) [facility] Result panel 4988 (unknown) (no date) (unknown) [facility] (no value) [facility] Result panel 4989 (unknown) (no date) (unknown) [facility] (no value) [facility] Result panel 4990 (unknown) (no date) (unknown) [facility] (no value) [facility] Result panel 4991 (unknown) (no date) (unknown) [facility] (no value) [facility] Result panel 4992 (unknown) (no date) (unknown) [facility] (no value) [facility] Result panel 4993 (unknown) (no date) (unknown) [facility] (no value) [facility] Result panel 4994 (unknown) (no date) (unknown) [facility] (no value) [facility] Result panel 4995 (unknown) (no date) (unknown) [facility] (no value) [facility] Result panel 4996 (unknown) (no date) (unknown) [facility] (no value) [facility] Result panel 4997 (unknown) (no date) (unknown) [facility] (no value) [facility] Result panel 4998 (unknown) (no date) (unknown) [facility] (no value) [facility] Result panel 4999 (unknown) (no date) (unknown) [facility] (no value) [facility] Result panel 5000 (unknown) (no date) (unknown) [facility] (no value) [facility] Result panel 5001 (unknown) (no date) (unknown) [facility] (no value) [facility] Result panel 5002 (unknown) (no date) (unknown) [facility] (no value) [facility] Result panel 5003 (unknown) (no date) (unknown) [facility] (no value) [facility] Result panel 5004 (unknown) (no date) (unknown) [facility] value[facility] Result panel 5005 (unknown) (no date) (unknown) [facility] (no value) [facility] Result panel 5006 (unknown) (no date) (unknown) [facility] (no value) [facility] Result panel 5007 (unknown) (no date) (unknown) [facility] (no value[facility] Result panel 5008 (unknown) (no date) (unknown) [facility] (no value) [facility] Result panel 5009 (unknown) (no date) (unknown) [facility] (no value) [facility] Result panel 5010 (unknown) (no date) (unknown) [facility] (no value) [facility] Result panel 5011 (unknown) (no date) (unknown) [facility] (no value) [facility] Result panel 5012 (unknown) (no date) (unknown) [facility] (no value) [facility] Result panel 5013 (unknown) (no date) (unknown) [facility] (no value) [facility] Result panel 5014 (unknown) (no date) (unknown) [facility] (no value) [facility] Result panel 5015 (unknown) (no date) (unknown) [facility] (no value) [facility] Result panel 5016 (unknown) (no date) (unknown) [facility] (no value) [facility] Result panel 5017 (unknown) (no date) (unknown) [facility] (no value) [facility] Result panel 5018 (unknown) (no date) (unknown) [facility] (no value) [facility] Result panel 5019 (unknown) (no date) (unknown) [facility] (no value) [facility] Result panel 5020 (unknown) (no date) (unknown) [facility] (no value) [facility] Result panel 5021 (unknown) (no date) (unknown) [facility] (no value) [facility] Result panel 5022 (unknown) (no date) (unknown) [facility] (no value) [facility] Result panel 5023 (unknown) (no date) (unknown) [facility] (no value) [facility] Result panel 5024 (unknown) (no date) (unknown) [facility] (no value) [facility] Result panel 5025 (unknown) (no date) (unknown) [facility] (no value) [facility] Result panel 5026 (unknown) (no date) (unknown) [facility] (no value) [facility] Result panel 5027 (unknown) (no date) (unknown) [facility] (no value) [facility] Result panel 5028 (unknown) (no date) (unknown) [facility] (no value) [facility] Result panel 5029 (unknown) (no date) (unknown) [facility] (no value) [facility] Result panel 5030 (unknown) (no date) (unknown) [facility] (no value) [facility] Result panel 5031 (unknown) (no date) (unknown) [facility] (no value) [facility] Result panel 5032 (unknown) (no date) (unknown) [facility] (no value) [facility] Result panel 5033 (unknown) (no date) (unknown) [facility] (no value) [facility] Result panel 5034 (unknown) (no date) (unknown) [facility] (no value) [facility] Result panel 5035 (unknown) (no date) (unknown) [facility] (no value) [facility] Result panel 5036 (unknown) (no date) (unknown) [facility] (no value) [facility] Result panel 5037 (unknown) (no date) (unknown) [facility] (no value) [facility] Result panel 5038 (unknown) (no date) (unknown) [facility] (no value) [facility] Result panel 5039 (unknown) (no date) (unknown) [facility] (no value) [facility] Result panel 5040 (unknown) (no date) (unknown) [facility] (no value) [facility] Result panel 5041 (unknown) (no date) (unknown) [facility] (no value) [facility] Result panel 5042 (unknown) (no date) (unknown) [facility] (no value) [facility] Result panel 5043 (unknown) (no date) (unknown) [facility] (no value) [facility] Result panel 5044 (unknown) (no date) (unknown) [facility] (no value) [facility] Result panel 5045 (unknown) (no date) (unknown) [facility] (no value) [facility] Result panel 5046 (unknown) (no date) (unknown) [facility] (no value) [facility] Result panel 5047 (unknown) (no date) (unknown) [facility] (no value) [facility] Result panel 5048 (unknown) (no date) (unknown) [facility] (no value) [facility] Result panel 5049 (unknown) (no date) (unknown) [facility] (no value) [facility] Result panel 5050 (unknown) (no date) (unknown) [facility] (no value) [facility] Result panel 5051 (unknown) (no date) (unknown) [facility] (no value) [facility] Result panel 5052 (unknown) (no date) (unknown) [facility] (no value) [facility] Result panel 5053 (unknown) (no date) (unknown) [facility] (no value) [facility] Result panel 5054 (unknown) (no date) (unknown) [facility] (no value) [facility] Result panel 5055 (unknown) (no date) (unknown) [facility] (no value) [facility] Result panel 5056 (unknown) (no date) (unknown) [facility] (no value) [facility] Result panel 5057 (unknown) (no date) (unknown) [facility] (no value) [facility] Result panel 5058 (unknown) (no date) (unknown) [facility] (no value) [facility] Result panel 5059 (unknown) (no date) (unknown) [facility] (no value) [facility] Result panel 5060 (unknown) (no date) (unknown) [facility] (no value) [facility] Result panel 5061 (unknown) (no date) (unknown) [facility] (no value) [facility] Result panel 5062 (unknown) (no date) (unknown) [facility] (no value) [facility] Result panel 5063 (unknown) (no date) (unknown) [facility] (no value) [facility] Result panel 5064 (unknown) (no date) (unknown) [facility] (no value) [facility] Result panel 5065 (unknown) (no date) (unknown) [facility] (no value) [facility] Result panel 5066 (unknown) (no date) (unknown) [facility] (no value) [facility] Result panel 5067 (unknown) (no date) (unknown) [facility] (no value) [facility] Result panel 5068 (unknown) (no date) (unknown) [facility] (no value) [facility] Result panel 5069 (unknown) (no date) (unknown) [facility] (no value) [facility] Result panel 5070 (unknown) (no date) (unknown) [facility] (no value) [facility] Result panel 5071 (unknown) (no date) (unknown) [facility] (no value) [facility] Result panel 5072 (unknown) (no date) (unknown) [facility] (no value) [facility] Result panel 5073 (unknown) (no date) (unknown) [facility] (no value) [facility] Result panel 5074 (unknown) (no date) (unknown) [facility] (no value) [facility] Result panel 5075 (unknown) (no date) (unknown) [facility] (no value) [facility] Result panel 5076 (unknown) (no date) (unknown) [facility] (no value) [facility] Result panel 5077 (unknown) (no date) (unknown) [facility] (no value) [facility] Result panel 5078 (unknown) (no date) (unknown) [facility] (no value) [facility] Result panel 5079 (unknown) (no date) (unknown) [facility] (no value) [facility] Result panel 5080 (unknown) (no date) (unknown) [facility] (no value) [facility] Result panel 5081 (unknown) (no date) (unknown) [facility] (no value) [facility] Result panel 5082 (unknown) (no date) (unknown) [facility] (no value) [facility] Result panel 5083 (unknown) (no date) (unknown) [facility] (no value) [facility] Result panel 5084 (unknown) (no date) (unknown) [facility] (no value) [facility] Result panel 5085 (unknown) (no date) (unknown) [facility] (no value) [facility] Result panel 5086 (unknown) (no date) (unknown) [facility] (no value) [facility] Result panel 5087 (unknown) (no date) (unknown) [facility] (no value) [facility] Result panel 5088 (unknown) (no date) (unknown) [facility] (no value) [facility] Result panel 5089 (unknown) (no date) (unknown) [facility] (no value) [facility] Result panel 5090 (unknown) (no date) (unknown) [facility] (no value) [facility] Result panel 5091 (unknown) (no date) (unknown) [facility] (no value) [facility] Result panel 5092 (unknown) (no date) (unknown) [facility] (no value) [facility] Result panel 5093 (unknown) (no date) (unknown) [facility] (no value) [facility] Result panel 5094 (unknown) (no date) (unknown) [facility] (no value) [facility] Result panel 5095 (unknown) (no date) (unknown) [facility] (no value) [facility] Result panel 5096 (unknown) (no date) (unknown) [facility] (no value) [facility] Result panel 5097 (unknown) (no date) (unknown) [facility] (no value) [facility] Result panel 5098 (unknown) (no date) (unknown) [facility] (no value) [facility] Result panel 5099 (unknown) (no date) (unknown) [facility] (no value) [facility] Result panel 5100 (unknown) (no date) (unknown) [facility] (no value) [facility] Result panel 5101 (unknown) (no date) (unknown) [facility] (no value[facility] Result panel 5102 (unknown) (no date) (unknown) [facility] (no value) [facility] Result panel 5103 (unknown) (no date) (unknown) [facility] (no value) [facility] Result panel 5104 (unknown) (no date) (unknown) [facility] (no value) [facility] Result panel 5105 (unknown) (no date) (unknown) [facility] (no value) [facility] Result panel 5106 (unknown) (no date) (unknown) [facility] (no value) [facility] Result panel 5107 (unknown) (no date) (unknown) [facility] (no value) [facility] Result panel 5108 (unknown) (no date) (unknown) [facility] (no value) [facility] Result panel 5109 (unknown) (no date) (unknown) [facility] value[facility] Result panel 5110 (unknown) (no date) (unknown) [facility] (no value) [facility] Result panel 5111 (unknown) (no date) (unknown) [facility] (no value) [facility] Result panel 5112 (unknown) (no date) (unknown) [facility] (no value) [facility] Result panel 5113 (unknown) (no date) (unknown) [facility] (no value) [facility] Result panel 5114 (unknown) (no date) (unknown) [facility] (no value) [facility] Result panel 5115 (unknown) (no date) (unknown) [facility] (no value) [facility] Result panel 5116 (unknown) (no date) (unknown) [facility] (no value) [facility] Result panel 5117 (unknown) (no date) (unknown) [facility] (no value) [facility] Result panel 5118 (unknown) (no date) (unknown) [facility] (no value) [facility] Result panel 5119 (unknown) (no date) (unknown) [facility] (no value) [facility] Result panel 5120 (unknown) (no date) (unknown) [facility] (no value) [facility] Result panel 5121 (unknown) (no date) (unknown) [facility] (no value) [facility] Result panel 5122 (unknown) (no date) (unknown) [facility] (no value) [facility] Result panel 5123 (unknown) (no date) (unknown) [facility] (no value) [facility] Result panel 5124 (unknown) (no date) (unknown) [facility] (no value) [facility] Result panel 5125 (unknown) (no date) (unknown) [facility] (no value) [facility] Result panel 5126 (unknown) (no date) (unknown) [facility] (no value) [facility] Result panel 5127 (unknown) (no date) (unknown) [facility] (no value) [facility] Result panel 5128 (unknown) (no date) (unknown) [facility] (no value) [facility] Result panel 5129 (unknown) (no date) (unknown) [facility] (no value) [facility] Result panel 5130 (unknown) (no date) (unknown) [facility] (no value) [facility] Result panel 5131 (unknown) (no date) (unknown) [facility] (no value) [facility] Result panel 5132 (unknown) (no date) (unknown) [facility] (no value) [facility] Result panel 5133 (unknown) (no date) (unknown) [facility] (no value) [facility] Result panel 5134 (unknown) (no date) (unknown) [facility] (no value) [facility] Result panel 5135 (unknown) (no date) (unknown) [facility] (no value) [facility] Result panel 5136 (unknown) (no date) (unknown) [facility] (no value) [facility] Result panel 5137 (unknown) (no date) (unknown) [facility] (no value) [facility] Result panel 5138 (unknown) (no date) (unknown) [facility] (no value) [facility] Result panel 5139 (unknown) (no date) (unknown) [facility] (no value) [facility] Result panel 5140 (unknown) (no date) (unknown) [facility] (no value) [facility] Result panel 5141 (unknown) (no date) (unknown) [facility] (no value) [facility] Result panel 5142 (unknown) (no date) (unknown) [facility] (no value) [facility] Result panel 5143 (unknown) (no date) (unknown) [facility] (no value) [facility] Result panel 5144 (unknown) (no date) (unknown) [facility] (no value) [facility] Result panel 5145 (unknown) (no date) (unknown) [facility] (no value) [facility] Result panel 5146 (unknown) (no date) (unknown) [facility] (no value) [facility] Result panel 5147 (unknown) (no date) (unknown) [facility] (no value) [facility] Result panel 5148 (unknown) (no date) (unknown) [facility] (no value) [facility] Result panel 5149 (unknown) (no date) (unknown) [facility] (no value) [facility] Result panel 5150 (unknown) (no date) (unknown) [facility] (no value) [facility] Result panel 5151 (unknown) (no date) (unknown) [facility] (no value) [facility] Result panel 5152 (unknown) (no date) (unknown) [facility] (no value) [facility] Result panel 5153 (unknown) (no date) (unknown) [facility] (no value) [facility] Result panel 5154 (unknown) (no date) (unknown) [facility] (no value) [facility] Result panel 5155 (unknown) (no date) (unknown) [facility] (no value) [facility] Result panel 5156 (unknown) (no date) (unknown) [facility] (no value) [facility] Result panel 5157 (unknown) (no date) (unknown) [facility] (no value) [facility] Result panel 5158 (unknown) (no date) (unknown) [facility] (no value) [facility] Result panel 5159 (unknown) (no date) (unknown) [facility] (no value) [facility] Result panel 5160 (unknown) (no date) (unknown) [facility] (no value) [facility] Result panel 5161 (unknown) (no date) (unknown) [facility] (no value) [facility] Result panel 5162 (unknown) (no date) (unknown) [facility] (no value) [facility] Result panel 5163 (unknown) (no date) (unknown) [facility] (no value) [facility] Result panel 5164 (unknown) (no date) (unknown) [facility] (no value) [facility] Result panel 5165 (unknown) (no date) (unknown) [facility] (no value) [facility] Result panel 5166 (unknown) (no date) (unknown) [facility] (no value) [facility] Result panel 5167 (unknown) (no date) (unknown) [facility] (no value) [facility] Result panel 5168 (unknown) (no date) (unknown) [facility] (no value) [facility] Result panel 5169 (unknown) (no date) (unknown) [facility] (no value) [facility] Result panel 5170 (unknown) (no date) (unknown) [facility] (no value) [facility] Result panel 5171 (unknown) (no date) (unknown) [facility] (no value) [facility] Result panel 5172 (unknown) (no date) (unknown) [facility] (no value) [facility] Result panel 5173 (unknown) (no date) (unknown) [facility]no value) [facility] Result panel 5174 (unknown) (no date) (unknown) [facility] (no value) [facility] Result panel 5175 (unknown) (no date) (unknown) [facility] (no value) [facility] Result panel 5176 (unknown) (no date) (unknown) [facility] (no value) [facility] Result panel 5177 (unknown) (no date) (unknown) [facility] (no value) [facility] Result panel 5178 (unknown) (no date) (unknown) [facility] (no value) [facility] Result panel 5179 (unknown) (no date) (unknown) [facility] (no value) [facility] Result panel 5180 (unknown) (no date) (unknown) [facility] (no value) [facility] Result panel 5181 (unknown) (no date) (unknown) [facility] (no value) [facility] Result panel 5182 (unknown) (no date) (unknown) [facility] (no value) [facility] Result panel 5183 (unknown) (no date) (unknown) [facility] (no value) [facility] Result panel 5184 (unknown) (no date) (unknown) [facility] (no value) [facility] Result panel 5185 (unknown) (no date) (unknown) [facility] (no value) [facility] Result panel 5186 (unknown) (no date) (unknown) [facility] (no value) [facility] Result panel 5187 (unknown) (no date) (unknown) [facility] (no value) [facility] Result panel 5188 (unknown) (no date) (unknown) [facility] (no value) [facility] Result panel 5189 (unknown) (no date) (unknown) [facility] (no value) [facility] Result panel 5190 (unknown) (no date) (unknown) [facility] (no value) [facility] Result panel 5191 (unknown) (no date) (unknown) [facility] (no value) [facility] Result panel 5192 (unknown) (no date) (unknown) [facility] (no value) [facility] Result panel 5193 (unknown) (no date) (unknown) [facility] (no value) [facility] Result panel 5194 (unknown) (no date) (unknown) [facility] (no value) [facility] Result panel 5195 (unknown) (no date) (unknown) [facility] (no value) [facility] Result panel 5196 (unknown) (no date) (unknown) [facility] (no value) [facility] Result panel 5197 (unknown) (no date) (unknown) [facility] (no value) [facility] Result panel 5198 (unknown) (no date) (unknown) [facility] (no value) [facility] Result panel 5199 (unknown) (no date) (unknown) [facility] (no value) [facility] Result panel 5200 (unknown) (no date) (unknown) [facility] (no value) [facility] Result panel 5201 (unknown) (no date) (unknown) [facility] (no value) [facility] Result panel 5202 (unknown) (no date) (unknown) [facility] (no value) [facility] Result panel 5203 (unknown) (no date) (unknown) [facility] (no value) [facility] Result panel 5204 (unknown) (no date) (unknown) [facility] (no value) [facility] Result panel 5205 (unknown) (no date) (unknown) [facility] (no value) [facility] Result panel 5206 (unknown) (no date) (unknown) [facility] (no value) [facility] Result panel 5207 (unknown) (no date) (unknown) [facility] (no value) [facility] Result panel 5208 (unknown) (no date) (unknown) [facility] (no value) [facility] Result panel 5209 (unknown) (no date) (unknown) [facility] (no value) [facility] Result panel 5210 (unknown) (no date) (unknown) [facility] (no value) [facility] Result panel 5211 (unknown) (no date) (unknown) [facility] (no value) [facility] Result panel 5212 (unknown) (no date) (unknown) [facility] (no value) [facility] Result panel 5213 (unknown) (no date) (unknown) [facility] (no value) [facility] Result panel 5214 (unknown) (no date) (unknown) [facility] (no value) [facility] Result panel 5215 (unknown) (no date) (unknown) [facility] (no value) [facility] Result panel 5216 (unknown) (no date) (unknown) [facility] (no value) [facility] Result panel 5217 (unknown) (no date) (unknown) [facility] (no value) [facility] Result panel 5218 (unknown) (no date) (unknown) [facility] (no value) [facility] Result panel 5219 (unknown) (no date) (unknown) [facility] (no value) [facility] Result panel 5220 (unknown) (no date) (unknown) [facility] (no value) [facility] Result panel 5221 (unknown) (no date) (unknown) [facility] (no value) [facility] Result panel 5222 (unknown) (no date) (unknown) [facility] value[facility] Result panel 5223 (unknown) (no date) (unknown) [facility] (no value) [facility] Result panel 5224 (unknown) (no date) (unknown) [facility] (no value) [facility] Result panel 5225 (unknown) (no date) (unknown) [facility] (no value) [facility] Result panel 5226 (unknown) (no date) (unknown) [facility] (no value) [facility] Result panel 5227 (unknown) (no date) (unknown) [facility] (no value) [facility] Result panel 5228 (unknown) (no date) (unknown) [facility] (no value) [facility] Result panel 5229 (unknown) (no date) (unknown) [facility] (no value) [facility] Result panel 5230 (unknown) (no date) (unknown) [facility] (no value) [facility] Result panel 5231 (unknown) (no date) (unknown) [facility] (no value) [facility] Result panel 5232 (unknown) (no date) (unknown) [facility] (no value) [facility] Result panel 5233 (unknown) (no date) (unknown) [facility] (no value) [facility] Result panel 5234 (unknown) (no date) (unknown) [facility] (no value) [facility] Result panel 5235 (unknown) (no date) (unknown) [facility] (no value) [facility] Result panel 5236 (unknown) (no date) (unknown) [facility] (no value) [facility] Result panel 5237 (unknown) (no date) (unknown) [facility] (no value) [facility] Result panel 5238 (unknown) (no date) (unknown) [facility] (no value) [facility] Result panel 5239 (unknown) (no date) (unknown) [facility] (no value) [facility] Result panel 5240 (unknown) (no date) (unknown) [facility] (no value) [facility] Result panel 5241 (unknown) (no date) (unknown) [facility] (no value) [facility] Result panel 5242 (unknown) (no date) (unknown) [facility] (no value) [facility] Result panel 5243 (unknown) (no date) (unknown) [facility] (no value) [facility] Result panel 5244 (unknown) (no date) (unknown) [facility] (no value) [facility] Result panel 5245 (unknown) (no date) (unknown) [facility] (no value) [facility] Result panel 5246 (unknown) (no date) (unknown) [facility] (no value) [facility] Result panel 5247 (unknown) (no date) (unknown) [facility] (no value) [facility] Result panel 5248 (unknown) (no date) (unknown) [facility] (no value) [facility] Result panel 5249 (unknown) (no date) (unknown) [facility] (no value) [facility] Result panel 5250 (unknown) (no date) (unknown) [facility] (no value) [facility] Result panel 5251 (unknown) (no date) (unknown) [facility] (no value) [facility] Result panel 5252 (unknown) (no date) (unknown) [facility] (no value) [facility] Result panel 5253 (unknown) (no date) (unknown) [facility] (no value) [facility] Result panel 5254 (unknown) (no date) (unknown) [facility] (no value) [facility] Result panel 5255 (unknown) (no date) (unknown) [facility] (no value) [facility] Result panel 5256 (unknown) (no date) (unknown) [facility] (no value) [facility] Result panel 5257 (unknown) (no date) (unknown) [facility] (no value) [facility] Result panel 5258 (unknown) (no date) (unknown) [facility] (no value) [facility] Result panel 5259 (unknown) (no date) (unknown) [facility] (no value) [facility] Result panel 5260 (unknown) (no date) (unknown) [facility] (no value) [facility] Result panel 5261 (unknown) (no date) (unknown) [facility] (no value) [facility] Result panel 5262 (unknown) (no date) (unknown) [facility] (no value) [facility] Result panel 5263 (unknown) (no date) (unknown) [facility] (no value) [facility] Result panel 5264 (unknown) (no date) (unknown) [facility] (no value) [facility] Result panel 5265 (unknown) (no date) (unknown) [facility] (no value) [facility] Result panel 5266 (unknown) (no date) (unknown) [facility] (no value) [facility] Result panel 5267 (unknown) (no date) (unknown) [facility] (no value) [facility] Result panel 5268 (unknown) (no date) (unknown) [facility] (no value) [facility] Result panel 5269 (unknown) (no date) (unknown) [facility] (no value) [facility] Result panel 5270 (unknown) (no date) (unknown) [facility] (no value) [facility] Result panel 5271 (unknown) (no date) (unknown) [facility] (no value) [facility] Result panel 5272 (unknown) (no date) (unknown) [facility] (no value) [facility] Result panel 5273 (unknown) (no date) (unknown) [facility] value[facility] Result panel 5274 (unknown) (no date) (unknown) [facility] (no value) [facility] Result panel 5275 (unknown) (no date) (unknown) [facility] (no value) [facility] Result panel 5276 (unknown) (no date) (unknown) [facility] (no value) [facility] Result panel 5277 (unknown) (no date) (unknown) [facility] (no value) [facility] Result panel 5278 (unknown) (no date) (unknown) [facility] (no value) [facility] Result panel 5279 (unknown) (no date) (unknown) [facility] (no value) [facility] Result panel 5280 (unknown) (no date) (unknown) [facility] (no value) [facility] Result panel 5281 (unknown) (no date) (unknown) [facility] (no value) [facility] Result panel 5282 (unknown) (no date) (unknown) [facility] (no value) [facility] Result panel 5283 (unknown) (no date) (unknown) [facility] (no value) [facility] Result panel 5284 (unknown) (no date) (unknown) [facility] (no value) [facility] Result panel 5285 (unknown) (no date) (unknown) [facility] (no value) [facility] Result panel 5286 (unknown) (no date) (unknown) [facility] (no value) [facility] Result panel 5287 (unknown) (no date) (unknown) [facility] (no value) [facility] Result panel 5288 (unknown) (no date) (unknown) [facility] (no value) [facility] Result panel 5289 (unknown) (no date) (unknown) [facility] (no value) [facility] Result panel 5290 (unknown) (no date) (unknown) [facility] (no value) [facility] Result panel 5291 (unknown) (no date) (unknown) [facility] (no value) [facility] Result panel 5292 (unknown) (no date) (unknown) [facility] (no value) [facility] Result panel 5293 (unknown) (no date) (unknown) [facility] (no value) [facility] Result panel 5294 (unknown) (no date) (unknown) [facility] (no value) [facility] Result panel 5295 (unknown) (no date) (unknown) [facility] (no value) [facility] Result panel 5296 (unknown) (no date) (unknown) [facility] (no value) [facility] Result panel 5297 (unknown) (no date) (unknown) [facility] (no value) [facility] Result panel 5298 (unknown) (no date) (unknown) [facility] (no value) [facility] Result panel 5299 (unknown) (no date) (unknown) [facility] (no value) [facility] Result panel 5300 (unknown) (no date) (unknown) [facility] (no value) [facility] Result panel 5301 (unknown) (no date) (unknown) [facility] (no value) [facility] Result panel 5302 (unknown) (no date) (unknown) [facility] (no value) [facility] Result panel 5303 (unknown) (no date) (unknown) [facility] (no value) [facility] Result panel 5304 (unknown) (no date) (unknown) [facility] (no value) [facility] Result panel 5305 (unknown) (no date) (unknown) [facility] (no value) [facility] Result panel 5306 (unknown) (no date) (unknown) [facility] (no value) [facility] Result panel 5307 (unknown) (no date) (unknown) [facility] (no value) [facility] Result panel 5308 (unknown) (no date) (unknown) [facility] (no value) [facility] Result panel 5309 (unknown) (no date) (unknown) [facility] (no value) [facility] Result panel 5310 (unknown) (no date) (unknown) [facility] (no value) [facility] Result panel 5311 (unknown) (no date) (unknown) [facility] (no value) [facility] Result panel 5312 (unknown) (no date) (unknown) [facility] (no value) [facility] Result panel 5313 (unknown) (no date) (unknown) [facility] (no value) [facility] Result panel 5314 (unknown) (no date) (unknown) [facility] (no value) [facility] Result panel 5315 (unknown) (no date) (unknown) [facility] (no value) [facility] Result panel 5316 (unknown) (no date) (unknown) [facility] (no value) [facility] Result panel 5317 (unknown) (no date) (unknown) [facility] (no value) [facility] Result panel 5318 (unknown) (no date) (unknown) [facility] (no value) [facility] Result panel 5319 (unknown) (no date) (unknown) [facility] (no value) [facility] Result panel 5320 (unknown) (no date) (unknown) [facility] (no value) [facility] Result panel 5321 (unknown) (no date) (unknown) [facility] (no value) [facility] Result panel 5322 (unknown) (no date) (unknown) [facility] (no value) [facility] Result panel 5323 (unknown) (no date) (unknown) [facility] (no value) [facility] Result panel 5324 (unknown) (no date) (unknown) [facility] (no value) [facility] Result panel 5325 (unknown) (no date) (unknown) [facility] (no value) [facility] Result panel 5326 (unknown) (no date) (unknown) [facility] (no value) [facility] Result panel 5327 (unknown) (no date) (unknown) [facility] (no value) [facility] Result panel 5328 (unknown) (no date) (unknown) [facility] (no value) [facility] Result panel 5329 (unknown) (no date) (unknown) [facility] (no value) [facility] Result panel 5330 (unknown) (no date) (unknown) [facility] (no value) [facility] Result panel 5331 (unknown) (no date) (unknown) [facility] (no value) [facility] Result panel 5332 (unknown) (no date) (unknown) [facility] (no value) [facility] Result panel 5333 (unknown) (no date) (unknown) [facility] (no value) [facility] Result panel 5334 (unknown) (no date) (unknown) [facility] (no value) [facility] Result panel 5335 (unknown) (no date) (unknown) [facility] (no value) [facility] Result panel 5336 (unknown) (no date) (unknown) [facility] (no value) [facility] Result panel 5337 (unknown) (no date) (unknown) [facility] (no value) [facility] Result panel 5338 (unknown) (no date) (unknown) [facility] (no value) [facility] Result panel 5339 (unknown) (no date) (unknown) [facility] (no value) [facility] Result panel 5340 (unknown) (no date) (unknown) [facility] (no value) [facility] Result panel 5341 (unknown) (no date) (unknown) [facility] (no value) [facility] Result panel 5342 (unknown) (no date) (unknown) [facility]no value) [facility] Result panel 5343 (unknown) (no date) (unknown) [facility] (no value) [facility] Result panel 5344 (unknown) (no date) (unknown) [facility] (no value) [facility] Result panel 5345 (unknown) (no date) (unknown) [facility] (no value) [facility] Result panel 5346 (unknown) (no date) (unknown) [facility] (no value) [facility] Result panel 5347 (unknown) (no date) (unknown) [facility] (no value) [facility] Result panel 5348 (unknown) (no date) (unknown) [facility] (no value) [facility] Result panel 5349 (unknown) (no date) (unknown) [facility] (no value) [facility] Result panel 5350 (unknown) (no date) (unknown) [facility] (no value) [facility] Result panel 5351 (unknown) (no date) (unknown) [facility] (no value) [facility] Result panel 5352 (unknown) (no date) (unknown) [facility] (no value) [facility] Result panel 5353 (unknown) (no date) (unknown) [facility] (no value) [facility] Result panel 5354 (unknown) (no date) (unknown) [facility] (no value) [facility] Result panel 5355 (unknown) (no date) (unknown) [facility] (no value) [facility] Result panel 5356 (unknown) (no date) (unknown) [facility] (no value) [facility] Result panel 5357 (unknown) (no date) (unknown) [facility] (no value) [facility] Result panel 5358 (unknown) (no date) (unknown) [facility] (no value) [facility] Result panel 5359 (unknown) (no date) (unknown) [facility] (no value) [facility] Result panel 5360 (unknown) (no date) (unknown) [facility] (no value) [facility] Result panel 5361 (unknown) (no date) (unknown) [facility] (no value) [facility] Result panel 5362 (unknown) (no date) (unknown) [facility]no value) [facility] Result panel 5363 (unknown) (no date) (unknown) [facility] (no value) [facility] Result panel 5364 (unknown) (no date) (unknown) [facility] (no value) [facility] Result panel 5365 (unknown) (no date) (unknown) [facility] (no value) [facility] Result panel 5366 (unknown) (no date) (unknown) [facility] (no value) [facility] Result panel 5367 (unknown) (no date) (unknown) [facility] (no value) [facility] Result panel 5368 (unknown) (no date) (unknown) [facility] (no value) [facility] Result panel 5369 (unknown) (no date) (unknown) [facility] (no value) [facility] Result panel 5370 (unknown) (no date) (unknown) [facility] (no value) [facility] Result panel 5371 (unknown) (no date) (unknown) [facility] (no value) [facility] Result panel 5372 (unknown) (no date) (unknown) [facility] (no value) [facility] Result panel 5373 (unknown) (no date) (unknown) [facility] (no value) [facility] Result panel 5374 (unknown) (no date) (unknown) [facility] (no value) [facility] Result panel 5375 (unknown) (no date) (unknown) [facility] (no value) [facility] Result panel 5376 (unknown) (no date) (unknown) [facility] (no value) [facility] Result panel 5377 (unknown) (no date) (unknown) [facility] (no value) [facility] Result panel 5378 (unknown) (no date) (unknown) [facility] (no value) [facility] Result panel 5379 (unknown) (no date) (unknown) [facility] (no value) [facility] Result panel 5380 (unknown) (no date) (unknown) [facility] (no value) [facility] Result panel 5381 (unknown) (no date) (unknown) [facility] (no value) [facility] Result panel 5382 (unknown) (no date) (unknown) [facility] (no value) [facility] Result panel 5383 (unknown) (no date) (unknown) [facility] (no value) [facility] Result panel 5384 (unknown) (no date) (unknown) [facility] (no value) [facility] Result panel 5385 (unknown) (no date) (unknown) [facility] (no value) [facility] Result panel 5386 (unknown) (no date) (unknown) [facility] (no value) [facility] Result panel 5387 (unknown) (no date) (unknown) [facility] (no value) [facility] Result panel 5388 (unknown) (no date) (unknown) [facility] (no value) [facility] Result panel 5389 (unknown) (no date) (unknown) [facility] (no value) [facility] Result panel 5390 (unknown) (no date) (unknown) [facility] (no value) [facility] Result panel 5391 (unknown) (no date) (unknown) [facility] (no value) [facility] Result panel 5392 (unknown) (no date) (unknown) [facility] (no value) [facility] Result panel 5393 (unknown) (no date) (unknown) [facility] (no value) [facility] Result panel 5394 (unknown) (no date) (unknown) [facility] (no value) [facility] Result panel 5395 (unknown) (no date) (unknown) [facility] (no value) [facility] Result panel 5396 (unknown) (no date) (unknown) [facility] (no value) [facility] Result panel 5397 (unknown) (no date) (unknown) [facility] (no value) [facility] Result panel 5398 (unknown) (no date) (unknown) [facility] (no value) [facility] Result panel 5399 (unknown) (no date) (unknown) [facility] (no value) [facility] Result panel 5400 (unknown) (no date) (unknown) [facility] (no value) [facility] Result panel 5401 (unknown) (no date) (unknown) [facility] (no value) [facility] Result panel 5402 (unknown) (no date) (unknown) [facility] (no value) [facility] Result panel 5403 (unknown) (no date) (unknown) [facility] (no value) [facility] Result panel 5404 (unknown) (no date) (unknown) [facility] (no value) [facility] Result panel 5405 (unknown) (no date) (unknown) [facility] (no value) [facility] Result panel 5406 (unknown) (no date) (unknown) [facility] (no value) [facility] Result panel 5407 (unknown) (no date) (unknown) [facility] (no value) [facility] Result panel 5408 (unknown) (no date) (unknown) [facility] (no value) [facility] Result panel 5409 (unknown) (no date) (unknown) [facility] (no value) [facility] Result panel 5410 (unknown) (no date) (unknown) [facility] (no value) [facility] Result panel 5411 (unknown) (no date) (unknown) [facility] (no value) [facility] Result panel 5412 (unknown) (no date) (unknown) [facility] (no value) [facility] Result panel 5413 (unknown) (no date) (unknown) [facility] (no value) [facility] Result panel 5414 (unknown) (no date) (unknown) [facility] (no value) [facility] Result panel 5415 (unknown) (no date) (unknown) [facility] (no value) [facility] Result panel 5416 (unknown) (no date) (unknown) [facility] (no value) [facility] Result panel 5417 (unknown) (no date) (unknown) [facility] (no value) [facility] Result panel 5418 (unknown) (no date) (unknown) [facility] (no value) [facility] Result panel 5419 (unknown) (no date) (unknown) [facility] (no value) [facility] Result panel 5420 (unknown) (no date) (unknown) [facility] (no value) [facility] Result panel 5421 (unknown) (no date) (unknown) [facility] (no value) [facility] Result panel 5422 (unknown) (no date) (unknown) [facility] (no value) [facility] Result panel 5423 (unknown) (no date) (unknown) [facility] (no value) [facility] Result panel 5424 (unknown) (no date) (unknown) [facility] (no value) [facility] Result panel 5425 (unknown) (no date) (unknown) [facility] (no value) [facility] Result panel 5426 (unknown) (no date) (unknown) [facility] (no value) [facility] Result panel 5427 (unknown) (no date) (unknown) [facility] (no value) [facility] Result panel 5428 (unknown) (no date) (unknown) [facility] (no value) [facility] Result panel 5429 (unknown) (no date) (unknown) [facility] (no value) [facility] Result panel 5430 (unknown) (no date) (unknown) [facility] (no value) [facility] Result panel 5431 (unknown) (no date) (unknown) [facility] (no value) [facility] Result panel 5432 (unknown) (no date) (unknown) [facility] (no value) [facility] Result panel 5433 (unknown) (no date) (unknown) [facility] (no value) [facility] Result panel 5434 (unknown) (no date) (unknown) [facility] (no value) [facility] Result panel 5435 (unknown) (no date) (unknown) [facility] (no value) [facility] Result panel 5436 (unknown) (no date) (unknown) [facility] (no value) [facility] Result panel 5437 (unknown) (no date) (unknown) [facility] (no value) [facility] Result panel 5438 (unknown) (no date) (unknown) [facility] (no value) [facility] Result panel 5439 (unknown) (no date) (unknown) [facility] (no value) [facility] Result panel 5440 (unknown) (no date) (unknown) [facility] (no value) [facility] Result panel 5441 (unknown) (no date) (unknown) [facility] (no value) [facility] Result panel 5442 (unknown) (no date) (unknown) [facility] (no value) [facility] Result panel 5443 (unknown) (no date) (unknown) [facility] (no value) [facility] Result panel 5444 (unknown) (no date) (unknown) [facility] (no value) [facility] Result panel 5445 (unknown) (no date) (unknown) [facility] (no value) [facility] Result panel 5446 (unknown) (no date) (unknown) [facility] (no value) [facility] Result panel 5447 (unknown) (no date) (unknown) [facility] (no value) [facility] Result panel 5448 (unknown) (no date) (unknown) [facility] (no value) [facility] Result panel 5449 (unknown) (no date) (unknown) [facility] (no value) [facility] Result panel 5450 (unknown) (no date) (unknown) [facility] (no value) [facility] Result panel 5451 (unknown) (no date) (unknown) [facility] (no value) [facility] Result panel 5452 (unknown) (no date) (unknown) [facility] (no value) [facility] Result panel 5453 (unknown) (no date) (unknown) [facility] (no value) [facility] Result panel 5454 (unknown) (no date) (unknown) [facility] (no value) [facility] Result panel 5455 (unknown) (no date) (unknown) [facility] (no value) [facility] Result panel 5456 (unknown) (no date) (unknown) [facility] (no value) [facility] Result panel 5457 (unknown) (no date) (unknown) [facility] (no value) [facility] Result panel 5458 (unknown) (no date) (unknown) [facility] (no value) [facility] Result panel 5459 (unknown) (no date) (unknown) [facility] (no value) [facility] Result panel 5460 (unknown) (no date) (unknown) [facility] (no value) [facility] Result panel 5461 (unknown) (no date) (unknown) [facility] (no value) [facility] Result panel 5462 (unknown) (no date) (unknown) [facility] (no value) [facility] Result panel 5463 (unknown) (no date) (unknown) [facility] (no value) [facility] Result panel 5464 (unknown) (no date) (unknown) [facility] (no value) [facility] Result panel 5465 (unknown) (no date) (unknown) [facility] (no value) [facility] Result panel 5466 (unknown) (no date) (unknown) [facility] (no value) [facility] Result panel 5467 (unknown) (no date) (unknown) [facility] (no value) [facility] Result panel 5468 (unknown) (no date) (unknown) [facility] (no value) [facility] Result panel 5469 (unknown) (no date) (unknown) [facility] (no value) [facility] Result panel 5470 (unknown) (no date) (unknown) [facility] (no value) [facility] Result panel 5471 (unknown) (no date) (unknown) [facility] (no value) [facility] Result panel 5472 (unknown) (no date) (unknown) [facility] (no value) [facility] Result panel 5473 (unknown) (no date) (unknown) [facility] (no value) [facility] Result panel 5474 (unknown) (no date) (unknown) [facility] (no value) [facility] Result panel 5475 (unknown) (no date) (unknown) [facility] (no value) [facility] Result panel 5476 (unknown) (no date) (unknown) [facility] (no value) [facility] Result panel 5477 (unknown) (no date) (unknown) [facility] (no value) [facility] Result panel 5478 (unknown) (no date) (unknown) [facility] (no value) [facility] Result panel 5479 (unknown) (no date) (unknown) [facility] (no value) [facility] Result panel 5480 (unknown) (no date) (unknown) [facility] (no value) [facility] Result panel 5481 (unknown) (no date) (unknown) [facility] (no value) [facility] Result panel 5482 (unknown) (no date) (unknown) [facility] (no value) [facility] Result panel 5483 (unknown) (no date) (unknown) [facility] (no value) [facility] Result panel 5484 (unknown) (no date) (unknown) [facility] (no value) [facility] Result panel 5485 (unknown) (no date) (unknown) [facility] (no value) [facility] Result panel 5486 (unknown) (no date) (unknown) [facility] (no value) [facility] Result panel 5487 (unknown) (no date) (unknown) [facility] (no value) [facility] Result panel 5488 (unknown) (no date) (unknown) [facility] (no value) [facility] Result panel 5489 (unknown) (no date) (unknown) [facility] (no value) [facility] Result panel 5490 (unknown) (no date) (unknown) [facility] (no value) [facility] Result panel 5491 (unknown) (no date) (unknown) [facility] (no value) [facility] Result panel 5492 (unknown) (no date) (unknown) [facility] (no value) [facility] Result panel 5493 (unknown) (no date) (unknown) [facility] (no value) [facility] Result panel 5494 (unknown) (no date) (unknown) [facility] (no value) [facility] Result panel 5495 (unknown) (no date) (unknown) [facility] (no value) [facility] Result panel 5496 (unknown) (no date) (unknown) [facility] (no value) [facility] Result panel 5497 (unknown) (no date) (unknown) [facility] (no value) [facility] Result panel 5498 (unknown) (no date) (unknown) [facility] (no value) [facility] Result panel 5499 (unknown) (no date) (unknown) [facility] (no value) [facility] Result panel 5500 (unknown) (no date) (unknown) [facility] (no value) [facility] Result panel 5501 (unknown) (no date) (unknown) [facility] (no value) [facility] Result panel 5502 (unknown) (no date) (unknown) [facility] (no value) [facility] Result panel 5503 (unknown) (no date) (unknown) [facility] (no value) [facility] Result panel 5504 (unknown) (no date) (unknown) [facility] (no value) [facility] Result panel 5505 (unknown) (no date) (unknown) [facility] (no value) [facility] Result panel 5506 (unknown) (no date) (unknown) [facility] (no value) [facility] Result panel 5507 (unknown) (no date) (unknown) [facility] (no value) [facility] Result panel 5508 (unknown) (no date) (unknown) [facility] (no value) [facility] Result panel 5509 (unknown) (no date) (unknown) [facility] (no value) [facility] Result panel 5510 (unknown) (no date) (unknown) [facility] (no value) [facility] Result panel 5511 (unknown) (no date) (unknown) [facility] value[facility] Result panel 5512 (unknown) (no date) (unknown) [facility] (no value) [facility] Result panel 5513 (unknown) (no date) (unknown) [facility] (no value) [facility] Result panel 5514 (unknown) (no date) (unknown) [facility] (no value) [facility] Result panel 5515 (unknown) (no date) (unknown) [facility] (no value) [facility] Result panel 5516 (unknown) (no date) (unknown) [facility] (no value) [facility] Result panel 5517 (unknown) (no date) (unknown) [facility] (no value) [facility] Result panel 5518 (unknown) (no date) (unknown) [facility] (no value) [facility] Result panel 5519 (unknown) (no date) (unknown) [facility] (no value) [facility] Result panel 5520 (unknown) (no date) (unknown) [facility] (no value) [facility] Result panel 5521 (unknown) (no date) (unknown) [facility] (no value) [facility] Result panel 5522 (unknown) (no date) (unknown) [facility] (no value) [facility] Result panel 5523 (unknown) (no date) (unknown) [facility] (no value) [facility] Result panel 5524 (unknown) (no date) (unknown) [facility] (no value) [facility] Result panel 5525 (unknown) (no date) (unknown) [facility] (no value) [facility] Result panel 5526 (unknown) (no date) (unknown) [facility] (no value) [facility] Result panel 5527 (unknown) (no date) (unknown) [facility] (no value) [facility] Result panel 5528 (unknown) (no date) (unknown) [facility] (no value) [facility] Result panel 5529 (unknown) (no date) (unknown) [facility] (no value) [facility] Result panel 5530 (unknown) (no date) (unknown) [facility] (no value) [facility] Result panel 5531 (unknown) (no date) (unknown) [facility] (no value) [facility] Result panel 5532 (unknown) (no date) (unknown) [facility] (no value) [facility] Result panel 5533 (unknown) (no date) (unknown) [facility] (no value) [facility] Result panel 5534 (unknown) (no date) (unknown) [facility] (no value) [facility] Result panel 5535 (unknown) (no date) (unknown) [facility] (no value) [facility] Result panel 5536 (unknown) (no date) (unknown) [facility] (no value) [facility] Result panel 5537 (unknown) (no date) (unknown) [facility] (no value) [facility] Result panel 5538 (unknown) (no date) (unknown) [facility] (no value) [facility] Result panel 5539 (unknown) (no date) (unknown) [facility] (no value) [facility] Result panel 5540 (unknown) (no date) (unknown) [facility] (no value) [facility] Result panel 5541 (unknown) (no date) (unknown) [facility] (no value) [facility] Result panel 5542 (unknown) (no date) (unknown) [facility] (no value) [facility] Result panel 5543 (unknown) (no date) (unknown) [facility] (no value) [facility] Result panel 5544 (unknown) (no date) (unknown) [facility] (no value) [facility] Result panel 5545 (unknown) (no date) (unknown) [facility] (no value) [facility] Result panel 5546 (unknown) (no date) (unknown) [facility] (no value) [facility] Result panel 5547 (unknown) (no date) (unknown) [facility] (no value) [facility] Result panel 5548 (unknown) (no date) (unknown) [facility] (no value) [facility] Result panel 5549 (unknown) (no date) (unknown) [facility] (no value) [facility] Result panel 5550 (unknown) (no date) (unknown) [facility] (no value) [facility] Result panel 5551 (unknown) (no date) (unknown) [facility] (no value) [facility] Result panel 5552 (unknown) (no date) (unknown) [facility] (no value) [facility] Result panel 5553 (unknown) (no date) (unknown) [facility] (no value) [facility] Result panel 5554 (unknown) (no date) (unknown) [facility] (no value) [facility] Result panel 5555 (unknown) (no date) (unknown) [facility] (no value) [facility] Result panel 5556 (unknown) (no date) (unknown) [facility] (no value) [facility] Result panel 5557 (unknown) (no date) (unknown) [facility] (no value) [facility] Result panel 5558 (unknown) (no date) (unknown) [facility] (no value) [facility] Result panel 5559 (unknown) (no date) (unknown) [facility] (no value) [facility] Result panel 5560 (unknown) (no date) (unknown) [facility] (no value) [facility] Result panel 5561 (unknown) (no date) (unknown) [facility] (no value) [facility] Result panel 5562 (unknown) (no date) (unknown) [facility] (no value) [facility] Result panel 5563 (unknown) (no date) (unknown) [facility] (no value) [facility] Result panel 5564 (unknown) (no date) (unknown) [facility] (no value) [facility] Result panel 5565 (unknown) (no date) (unknown) [facility] (no value) [facility] Result panel 5566 (unknown) (no date) (unknown) [facility] (no value) [facility] Result panel 5567 (unknown) (no date) (unknown) [facility] (no value) [facility] Result panel 5568 (unknown) (no date) (unknown) [facility] (no value) [facility] Result panel 5569 (unknown) (no date) (unknown) [facility] (no value) [facility] Result panel 5570 (unknown) (no date) (unknown) [facility] (no value) [facility] Result panel 5571 (unknown) (no date) (unknown) [facility] (no value) [facility] Result panel 5572 (unknown) (no date) (unknown) [facility] (no value) [facility] Result panel 5573 (unknown) (no date) (unknown) [facility] (no value) [facility] Result panel 5574 (unknown) (no date) (unknown) [facility] (no value) [facility] Result panel 5575 (unknown) (no date) (unknown) [facility] (no value) [facility] Result panel 5576 (unknown) (no date) (unknown) [facility] (no value) [facility] Result panel 5577 (unknown) (no date) (unknown) [facility] (no value) [facility] Result panel 5578 (unknown) (no date) (unknown) [facility] (no value) [facility] Result panel 5579 (unknown) (no date) (unknown) [facility] (no value) [facility] Result panel 5580 (unknown) (no date) (unknown) [facility] (no value) [facility] Result panel 5581 (unknown) (no date) (unknown) [facility] (no value) [facility] Result panel 5582 (unknown) (no date) (unknown) [facility] (no value) [facility] Result panel 5583 (unknown) (no date) (unknown) [facility] (no value) [facility] Result panel 5584 (unknown) (no date) (unknown) [facility] (no value) [facility] Result panel 5585 (unknown) (no date) (unknown) [facility] (no value) [facility] Result panel 5586 (unknown) (no date) (unknown) [facility] (no value) [facility] Result panel 5587 (unknown) (no date) (unknown) [facility] (no value) [facility] Result panel 5588 (unknown) (no date) (unknown) [facility] (no value) [facility] Result panel 5589 (unknown) (no date) (unknown) [facility] (no value) [facility] Result panel 5590 (unknown) (no date) (unknown) [facility] (no value) [facility] Result panel 5591 (unknown) (no date) (unknown) [facility] (no value) [facility] Result panel 5592 (unknown) (no date) (unknown) [facility] (no value) [facility] Result panel 5593 (unknown) (no date) (unknown) [facility] (no value) [facility] Result panel 5594 (unknown) (no date) (unknown) [facility] (no value) [facility] Result panel 5595 (unknown) (no date) (unknown) [facility] (no value) [facility] Result panel 5596 (unknown) (no date) (unknown) [facility] (no value) [facility] Result panel 5597 (unknown) (no date) (unknown) [facility] (no value) [facility] Result panel 5598 (unknown) (no date) (unknown) [facility] (no value) [facility] Result panel 5599 (unknown) (no date) (unknown) [facility] (no value) [facility] Result panel 5600 (unknown) (no date) (unknown) [facility] (no value) [facility] Result panel 5601 (unknown) (no date) (unknown) [facility] (no value) [facility] Result panel 5602 (unknown) (no date) (unknown) [facility] (no value) [facility] Result panel 5603 (unknown) (no date) (unknown) [facility] (no value) [facility] Result panel 5604 (unknown) (no date) (unknown) [facility] (no value) [facility] Result panel 5605 (unknown) (no date) (unknown) [facility] (no value) [facility] Result panel 5606 (unknown) (no date) (unknown) [facility] (no value) [facility] Result panel 5607 (unknown) (no date) (unknown) [facility] (no value) [facility] Result panel 5608 (unknown) (no date) (unknown) [facility] (no value) [facility] Result panel 5609 (unknown) (no date) (unknown) [facility] (no value) [facility] Result panel 5610 (unknown) (no date) (unknown) [facility] (no value) [facility] Result panel 5611 (unknown) (no date) (unknown) [facility] (no value) [facility] Result panel 5612 (unknown) (no date) (unknown) [facility] (no value) [facility] Result panel 5613 (unknown) (no date) (unknown) [facility] (no value) [facility] Result panel 5614 (unknown) (no date) (unknown) [facility] (no value) [facility] Result panel 5615 (unknown) (no date) (unknown) [facility] (no value) [facility] Result panel 5616 (unknown) (no date) (unknown) [facility] (no value) [facility] Result panel 5617 (unknown) (no date) (unknown) [facility] (no value) [facility] Result panel 5618 (unknown) (no date) (unknown) [facility] (no value) [facility] Result panel 5619 (unknown) (no date) (unknown) [facility] (no value) [facility] Result panel 5620 (unknown) (no date) (unknown) [facility] (no value) [facility] Result panel 5621 (unknown) (no date) (unknown) [facility] (no value) [facility] Result panel 5622 (unknown) (no date) (unknown) [facility] (no value) [facility] Result panel 5623 (unknown) (no date) (unknown) [facility] (no value) [facility] Result panel 5624 (unknown) (no date) (unknown) [facility] (no value) [facility] Result panel 5625 (unknown) (no date) (unknown) [facility] (no value) [facility] Result panel 5626 (unknown) (no date) (unknown) [facility] (no value) [facility] Result panel 5627 (unknown) (no date) (unknown) [facility] (no value) [facility] Result panel 5628 (unknown) (no date) (unknown) [facility] (no value) [facility] Result panel 5629 (unknown) (no date) (unknown) [facility] (no value) [facility] Result panel 5630 (unknown) (no date) (unknown) [facility] (no value) [facility] Result panel 5631 (unknown) (no date) (unknown) [facility] (no value) [facility] Result panel 5632 (unknown) (no date) (unknown) [facility] (no value) [facility] Result panel 5633 (unknown) (no date) (unknown) [facility] (no value) [facility] Result panel 5634 (unknown) (no date) (unknown) [facility] (no value) [facility] Result panel 5635 (unknown) (no date) (unknown) [facility] (no value) [facility] Result panel 5636 (unknown) (no date) (unknown) [facility] (no value) [facility] Result panel 5637 (unknown) (no date) (unknown) [facility] (no value) [facility] Result panel 5638 (unknown) (no date) (unknown) [facility] (no value) [facility] Result panel 5639 (unknown) (no date) (unknown) [facility] (no value) [facility] Result panel 5640 (unknown) (no date) (unknown) [facility] (no value) [facility] Result panel 5641 (unknown) (no date) (unknown) [facility] (no value) [facility] Result panel 5642 (unknown) (no date) (unknown) [facility] (no value) [facility] Result panel 5643 (unknown) (no date) (unknown) [facility] (no value) [facility] Result panel 5644 (unknown) (no date) (unknown) [facility] (no value) [facility] Result panel 5645 (unknown) (no date) (unknown) [facility] (no value) [facility] Result panel 5646 (unknown) (no date) (unknown) [facility] (no value) [facility] Result panel 5647 (unknown) (no date) (unknown) [facility] (no value) [facility] Result panel 5648 (unknown) (no date) (unknown) [facility] (no value) [facility] Result panel 5649 (unknown) (no date) (unknown) [facility] (no value) [facility] Result panel 5650 (unknown) (no date) (unknown) [facility] (no value) [facility] Result panel 5651 (unknown) (no date) (unknown) [facility] (no value) [facility] Result panel 5652 (unknown) (no date) (unknown) [facility] (no value) [facility] Result panel 5653 (unknown) (no date) (unknown) [facility] (no value) [facility] Result panel 5654 (unknown) (no date) (unknown) [facility] (no value) [facility] Result panel 5655 (unknown) (no date) (unknown) [facility] (no value) [facility] Result panel 5656 (unknown) (no date) (unknown) [facility] (no value) [facility] Result panel 5657 (unknown) (no date) (unknown) [facility] (no value) [facility] Result panel 5658 (unknown) (no date) (unknown) [facility] (no value) [facility] Result panel 5659 (unknown) (no date) (unknown) [facility] (no value) [facility] Result panel 5660 (unknown) (no date) (unknown) [facility] (no value) [facility] Result panel 5661 (unknown) (no date) (unknown) [facility] (no value) [facility] Result panel 5662 (unknown) (no date) (unknown) [facility] (no value) [facility] Result panel 5663 (unknown) (no date) (unknown) [facility] (no value) [facility] Result panel 5664 (unknown) (no date) (unknown) [facility] (no value) [facility] Result panel 5665 (unknown) (no date) (unknown) [facility] (no value) [facility] Result panel 5666 (unknown) (no date) (unknown) [facility] (no value) [facility] Result panel 5667 (unknown) (no date) (unknown) [facility] (no value) [facility] Result panel 5668 (unknown) (no date) (unknown) [facility] (no value) [facility] Result panel 5669 (unknown) (no date) (unknown) [facility] (no value) [facility] Result panel 5670 (unknown) (no date) (unknown) [facility] (no value) [facility] Result panel 5671 (unknown) (no date) (unknown) [facility] (no value) [facility] Result panel 5672 (unknown) (no date) (unknown) [facility] (no value) [facility] Result panel 5673 (unknown) (no date) (unknown) [facility] (no value) [facility] Result panel 5674 (unknown) (no date) (unknown) [facility] (no value) [facility] Result panel 5675 (unknown) (no date) (unknown) [facility] (no value) [facility] Result panel 5676 (unknown) (no date) (unknown) [facility] (no value) [facility] Result panel 5677 (unknown) (no date) (unknown) [facility] (no value) [facility] Result panel 5678 (unknown) (no date) (unknown) [facility] (no value) [facility] Result panel 5679 (unknown) (no date) (unknown) [facility] (no value) [facility] Result panel 5680 (unknown) (no date) (unknown) [facility] value[facility] Result panel 5681 (unknown) (no date) (unknown) [facility] (no value) [facility] Result panel 5682 (unknown) (no date) (unknown) [facility] (no value) [facility] Result panel 5683 (unknown) (no date) (unknown) [facility] (no value) [facility] Result panel 5684 (unknown) (no date) (unknown) [facility] (no value) [facility] Result panel 5685 (unknown) (no date) (unknown) [facility] (no value) [facility] Result panel 5686 (unknown) (no date) (unknown) [facility] (no value) [facility] Result panel 5687 (unknown) (no date) (unknown) [facility] (no value) [facility] Result panel 5688 (unknown) (no date) (unknown) [facility] (no value) [facility] Result panel 5689 (unknown) (no date) (unknown) [facility] (no value) [facility] Result panel 5690 (unknown) (no date) (unknown) [facility] (no value) [facility] Result panel 5691 (unknown) (no date) (unknown) [facility] (no value) [facility] Result panel 5692 (unknown) (no date) (unknown) [facility] (no value) [facility] Result panel 5693 (unknown) (no date) (unknown) [facility] (no value) [facility] Result panel 5694 (unknown) (no date) (unknown) [facility] (no value) [facility] Result panel 5695 (unknown) (no date) (unknown) [facility] (no value) [facility] Result panel 5696 (unknown) (no date) (unknown) [facility] (no value) [facility] Result panel 5697 (unknown) (no date) (unknown) [facility] (no value) [facility] Result panel 5698 (unknown) (no date) (unknown) [facility] (no value) [facility] Result panel 5699 (unknown) (no date) (unknown) [facility] (no value) [facility] Result panel 5700 (unknown) (no date) (unknown) [facility] (no value) [facility] Result panel 5701 (unknown) (no date) (unknown) [facility] (no value) [facility] Result panel 5702 (unknown) (no date) (unknown) [facility] (no value) [facility] Result panel 5703 (unknown) (no date) (unknown) [facility] (no value) [facility] Result panel 5704 (unknown) (no date) (unknown) [facility] (no value) [facility] Result panel 5705 (unknown) (no date) (unknown) [facility] (no value) [facility] Result panel 5706 (unknown) (no date) (unknown) [facility] (no value) [facility] Result panel 5707 (unknown) (no date) (unknown) [facility] (no value) [facility] Result panel 5708 (unknown) (no date) (unknown) [facility] (no value) [facility] Result panel 5709 (unknown) (no date) (unknown) [facility] (no value) [facility] Result panel 5710 (unknown) (no date) (unknown) [facility] (no value) [facility] Result panel 5711 (unknown) (no date) (unknown) [facility] (no value) [facility] Result panel 5712 (unknown) (no date) (unknown) [facility] (no value) [facility] Result panel 5713 (unknown) (no date) (unknown) [facility] (no value) [facility] Result panel 5714 (unknown) (no date) (unknown) [facility] (no value) [facility] Result panel 5715 (unknown) (no date) (unknown) [facility] (no value) [facility] Result panel 5716 (unknown) (no date) (unknown) [facility] (no value) [facility] Result panel 5717 (unknown) (no date) (unknown) [facility] (no value) [facility] Result panel 5718 (unknown) (no date) (unknown) [facility] (no value) [facility] Result panel 5719 (unknown) (no date) (unknown) [facility] (no value) [facility] Result panel 5720 (unknown) (no date) (unknown) [facility] (no value) [facility] Result panel 5721 (unknown) (no date) (unknown) [facility] (no value) [facility] Result panel 5722 (unknown) (no date) (unknown) [facility] (no value) [facility] Result panel 5723 (unknown) (no date) (unknown) [facility] (no value) [facility] Result panel 5724 (unknown) (no date) (unknown) [facility] (no value) [facility] Result panel 5725 (unknown) (no date) (unknown) [facility] (no value) [facility] Result panel 5726 (unknown) (no date) (unknown) [facility] (no value) [facility] Result panel 5727 (unknown) (no date) (unknown) [facility] (no value) [facility] Result panel 5728 (unknown) (no date) (unknown) [facility] (no value) [facility] Result panel 5729 (unknown) (no date) (unknown) [facility] (no value) [facility] Result panel 5730 (unknown) (no date) (unknown) [facility] (no value) [facility] Result panel 5731 (unknown) (no date) (unknown) [facility] (no value) [facility] Result panel 5732 (unknown) (no date) (unknown) [facility] (no value) [facility] Result panel 5733 (unknown) (no date) (unknown) [facility] (no value) [facility] Result panel 5734 (unknown) (no date) (unknown) [facility] (no value) [facility] Result panel 5735 (unknown) (no date) (unknown) [facility] (no value) [facility] Result panel 5736 (unknown) (no date) (unknown) [facility] (no value) [facility] Result panel 5737 (unknown) (no date) (unknown) [facility] (no value) [facility] Result panel 5738 (unknown) (no date) (unknown) [facility] (no value) [facility] Result panel 5739 (unknown) (no date) (unknown) [facility] (no value) [facility] Result panel 5740 (unknown) (no date) (unknown) [facility] (no value) [facility] Result panel 5741 (unknown) (no date) (unknown) [facility] (no value) [facility] Result panel 5742 (unknown) (no date) (unknown) [facility] (no value) [facility] Result panel 5743 (unknown) (no date) (unknown) [facility] (no value) [facility] Result panel 5744 (unknown) (no date) (unknown) [facility] (no value) [facility] Result panel 5745 (unknown) (no date) (unknown) [facility] (no value) [facility] Result panel 5746 (unknown) (no date) (unknown) [facility] (no value) [facility] Result panel 5747 (unknown) (no date) (unknown) [facility] (no value) [facility] Result panel 5748 (unknown) (no date) (unknown) [facility] (no value) [facility] Result panel 5749 (unknown) (no date) (unknown) [facility] (no value) [facility] Result panel 5750 (unknown) (no date) (unknown) [facility] (no value) [facility] Result panel 5751 (unknown) (no date) (unknown) [facility] (no value) [facility] Result panel 5752 (unknown) (no date) (unknown) [facility] (no value) [facility] Result panel 5753 (unknown) (no date) (unknown) [facility] (no value) [facility] Result panel 5754 (unknown) (no date) (unknown) [facility] (no value) [facility] Result panel 5755 (unknown) (no date) (unknown) [facility] (no value) [facility] Result panel 5756 (unknown) (no date) (unknown) [facility] (no value) [facility] Result panel 5757 (unknown) (no date) (unknown) [facility] (no value) [facility] Result panel 5758 (unknown) (no date) (unknown) [facility] (no value) [facility] Result panel 5759 (unknown) (no date) (unknown) [facility] (no value) [facility] Result panel 5760 (unknown) (no date) (unknown) [facility] (no value) [facility] Result panel 5761 (unknown) (no date) (unknown) [facility] (no value) [facility] Result panel 5762 (unknown) (no date) (unknown) [facility] (no value) [facility] Result panel 5763 (unknown) (no date) (unknown) [facility] (no value) [facility] Result panel 5764 (unknown) (no date) (unknown) [facility] (no value) [facility] Result panel 5765 (unknown) (no date) (unknown) [facility] (no value) [facility] Result panel 5766 (unknown) (no date) (unknown) [facility] (no value) [facility] Result panel 5767 (unknown) (no date) (unknown) [facility] (no value) [facility] Result panel 5768 (unknown) (no date) (unknown) [facility] (no value) [facility] Result panel 5769 (unknown) (no date) (unknown) [facility] (no value) [facility] Result panel 5770 (unknown) (no date) (unknown) [facility] (no value) [facility] Result panel 5771 (unknown) (no date) (unknown) [facility] (no value) [facility] Result panel 5772 (unknown) (no date) (unknown) [facility] (no value) [facility] Result panel 5773 (unknown) (no date) (unknown) [facility] (no value) [facility] Result panel 5774 (unknown) (no date) (unknown) [facility] (no value) [facility] Result panel 5775 (unknown) (no date) (unknown) [facility] (no value) [facility] Result panel 5776 (unknown) (no date) (unknown) [facility] (no value) [facility] Result panel 5777 (unknown) (no date) (unknown) [facility] (no value) [facility] Result panel 5778 (unknown) (no date) (unknown) [facility] (no value) [facility] Result panel 5779 (unknown) (no date) (unknown) [facility] (no value) [facility] Result panel 5780 (unknown) (no date) (unknown) [facility] (no value) [facility] Result panel 5781 (unknown) (no date) (unknown) [facility] (no value) [facility] Result panel 5782 (unknown) (no date) (unknown) [facility] (no value) [facility] Result panel 5783 (unknown) (no date) (unknown) [facility] (no value) [facility] Result panel 5784 (unknown) (no date) (unknown) [facility] (no value) [facility] Result panel 5785 (unknown) (no date) (unknown) [facility] (no value) [facility] Result panel 5786 (unknown) (no date) (unknown) [facility] (no value) [facility] Result panel 5787 (unknown) (no date) (unknown) [facility] (no value) [facility] Result panel 5788 (unknown) (no date) (unknown) [facility] (no value) [facility] Result panel 5789 (unknown) (no date) (unknown) [facility] (no value) [facility] Result panel 5790 (unknown) (no date) (unknown) [facility] (no value) [facility] Result panel 5791 (unknown) (no date) (unknown) [facility] (no value) [facility] Result panel 5792 (unknown) (no date) (unknown) [facility] (no value) [facility] Result panel 5793 (unknown) (no date) (unknown) [facility] (no value) [facility] Result panel 5794 (unknown) (no date) (unknown) [facility] (no value) [facility] Result panel 5795 (unknown) (no date) (unknown) [facility] (no value) [facility] Result panel 5796 (unknown) (no date) (unknown) [facility] (no value) [facility] Result panel 5797 (unknown) (no date) (unknown) [facility] (no value) [facility] Result panel 5798 (unknown) (no date) (unknown) [facility] (no value) [facility] Result panel 5799 (unknown) (no date) (unknown) [facility] (no value) [facility] Result panel 5800 (unknown) (no date) (unknown) [facility] (no value) [facility] Result panel 5801 (unknown) (no date) (unknown) [facility] (no value) [facility] Result panel 5802 (unknown) (no date) (unknown) [facility] (no value) [facility] Result panel 5803 (unknown) (no date) (unknown) [facility] (no value) [facility] Result panel 5804 (unknown) (no date) (unknown) [facility] (no value) [facility] Result panel 5805 (unknown) (no date) (unknown) [facility] (no value) [facility] Result panel 5806 (unknown) (no date) (unknown) [facility] (no value) [facility] Result panel 5807 (unknown) (no date) (unknown) [facility] (no value) [facility] Result panel 5808 (unknown) (no date) (unknown) [facility] (no value) [facility] Result panel 5809 (unknown) (no date) (unknown) [facility] (no value) [facility] Result panel 5810 (unknown) (no date) (unknown) [facility] (no value) [facility] Result panel 5811 (unknown) (no date) (unknown) [facility] (no value) [facility] Result panel 5812 (unknown) (no date) (unknown) [facility] (no value) [facility] Result panel 5813 (unknown) (no date) (unknown) [facility] (no value) [facility] Result panel 5814 (unknown) (no date) (unknown) [facility] (no value) [facility] Result panel 5815 (unknown) (no date) (unknown) [facility] (no value) [facility] Result panel 5816 (unknown) (no date) (unknown) [facility] (no value) [facility] Result panel 5817 (unknown) (no date) (unknown) [facility] (no value) [facility] Result panel 5818 (unknown) (no date) (unknown) [facility] (no value) [facility] Result panel 5819 (unknown) (no date) (unknown) [facility] (no value) [facility] Result panel 5820 (unknown) (no date) (unknown) [facility] (no value) [facility] Result panel 5821 (unknown) (no date) (unknown) [facility] (no value) [facility] Result panel 5822 (unknown) (no date) (unknown) [facility] (no value) [facility] Result panel 5823 (unknown) (no date) (unknown) [facility] (no value) [facility] Result panel 5824 (unknown) (no date) (unknown) [facility] (no value) [facility] Result panel 5825 (unknown) (no date) (unknown) [facility] (no value) [facility] Result panel 5826 (unknown) (no date) (unknown) [facility] (no value) [facility] Result panel 5827 (unknown) (no date) (unknown) [facility] (no value) [facility] Result panel 5828 (unknown) (no date) (unknown) [facility] (no value) [facility] Result panel 5829 (unknown) (no date) (unknown) [facility] (no value) [facility] Result panel 5830 (unknown) (no date) (unknown) [facility] (no value) [facility] Result panel 5831 (unknown) (no date) (unknown) [facility] (no value) [facility] Result panel 5832 (unknown) (no date) (unknown) [facility] (no value) [facility] Result panel 5833 (unknown) (no date) (unknown) [facility] (no value) [facility] Result panel 5834 (unknown) (no date) (unknown) [facility] (no value) [facility] Result panel 5835 (unknown) (no date) (unknown) [facility] (no value) [facility] Result panel 5836 (unknown) (no date) (unknown) [facility] (no value) [facility] Result panel 5837 (unknown) (no date) (unknown) [facility] (no value) [facility] Result panel 5838 (unknown) (no date) (unknown) [facility] (no value) [facility] Result panel 5839 (unknown) (no date) (unknown) [facility] (no value) [facility] Result panel 5840 (unknown) (no date) (unknown) [facility] (no value) [facility] Result panel 5841 (unknown) (no date) (unknown) [facility] (no value) [facility] Result panel 5842 (unknown) (no date) (unknown) [facility] (no value) [facility] Result panel 5843 (unknown) (no date) (unknown) [facility] (no value) [facility] Result panel 5844 (unknown) (no date) (unknown) [facility] (no value) [facility] Result panel 5845 (unknown) (no date) (unknown) [facility] (no value) [facility] Result panel 5846 (unknown) (no date) (unknown) [facility] (no value) [facility] Result panel 5847 (unknown) (no date) (unknown) [facility] (no value) [facility] Result panel 5848 (unknown) (no date) (unknown) [facility] (no value) [facility] Result panel 5849 (unknown) (no date) (unknown) [facility] value) [facility] Result panel 5850 (unknown) (no date) (unknown) [facility] (no value) [facility] Result panel 5851 (unknown) (no date) (unknown) [facility] (no value) [facility] Result panel 5852 (unknown) (no date) (unknown) [facility] (no value) [facility] Result panel 5853 (unknown) (no date) (unknown) [facility] (no value) [facility] Result panel 5854 (unknown) (no date) (unknown) [facility] (no value) [facility] Result panel 5855 (unknown) (no date) (unknown) [facility] (no value) [facility] Result panel 5856 (unknown) (no date) (unknown) [facility] (no value) [facility] Result panel 5857 (unknown) (no date) (unknown) [facility] (no value) [facility] Result panel 5858 (unknown) (no date) (unknown) [facility] (no value) [facility] Result panel 5859 (unknown) (no date) (unknown) [facility] (no value) [facility] Result panel 5860 (unknown) (no date) (unknown) [facility] (no value) [facility] Result panel 5861 (unknown) (no date) (unknown) [facility] (no value) [facility] Result panel 5862 (unknown) (no date) (unknown) [facility] (no value) [facility] Result panel 5863 (unknown) (no date) (unknown) [facility] (no value) [facility] Result panel 5864 (unknown) (no date) (unknown) [facility] (no value) [facility] Result panel 5865 (unknown) (no date) (unknown) [facility] (no value) [facility] Result panel 5866 (unknown) (no date) (unknown) [facility] (no value) [facility] Result panel 5867 (unknown) (no date) (unknown) [facility] (no value) [facility] Result panel 5868 (unknown) (no date) (unknown) [facility] (no value) [facility] Result panel 5869 (unknown) (no date) (unknown) [facility] (no value) [facility] Result panel 5870 (unknown) (no date) (unknown) [facility] (no value) [facility] Result panel 5871 (unknown) (no date) (unknown) [facility] (no value) [facility] Result panel 5872 (unknown) (no date) (unknown) [facility] (no value) [facility] Result panel 5873 (unknown) (no date) (unknown) [facility] (no value) [facility] Result panel 5874 (unknown) (no date) (unknown) [facility] (no value) [facility] Result panel 5875 (unknown) (no date) (unknown) [facility] (no value) [facility] Result panel 5876 (unknown) (no date) (unknown) [facility] (no value) [facility] Result panel 5877 (unknown) (no date) (unknown) [facility] (no value) [facility] Result panel 5878 (unknown) (no date) (unknown) [facility] (no value) [facility] Result panel 5879 (unknown) (no date) (unknown) [facility] (no value) [facility] Result panel 5880 (unknown) (no date) (unknown) [facility] (no value) [facility] Result panel 5881 (unknown) (no date) (unknown) [facility] (no value) [facility] Result panel 5882 (unknown) (no date) (unknown) [facility] (no value) [facility] Result panel 5883 (unknown) (no date) (unknown) [facility] (no value) [facility] Result panel 5884 (unknown) (no date) (unknown) [facility] (no value) [facility] Result panel 5885 (unknown) (no date) (unknown) [facility] (no value) [facility] Result panel 5886 (unknown) (no date) (unknown) [facility] (no value) [facility] Result panel 5887 (unknown) (no date) (unknown) [facility] (no value) [facility] Result panel 5888 (unknown) (no date) (unknown) [facility] (no value) [facility] Result panel 5889 (unknown) (no date) (unknown) [facility] (no value) [facility] Result panel 5890 (unknown) (no date) (unknown) [facility] (no value) [facility] Result panel 5891 (unknown) (no date) (unknown) [facility] (no value) [facility] Result panel 5892 (unknown) (no date) (unknown) [facility] (no value) [facility] Result panel 5893 (unknown) (no date) (unknown) [facility] (no value) [facility] Result panel 5894 (unknown) (no date) (unknown) [facility] (no value) [facility] Result panel 5895 (unknown) (no date) (unknown) [facility] (no value) [facility] Result panel 5896 (unknown) (no date) (unknown) [facility] (no value) [facility] Result panel 5897 (unknown) (no date) (unknown) [facility] (no value) [facility] Result panel 5898 (unknown) (no date) (unknown) [facility] (no value) [facility] Result panel 5899 (unknown) (no date) (unknown) [facility] (no value) [facility] Result panel 5900 (unknown) (no date) (unknown) [facility] (no value) [facility] Result panel 5901 (unknown) (no date) (unknown) [facility] (no value) [facility] Result panel 5902 (unknown) (no date) (unknown) [facility] (no value) [facility] Result panel 5903 (unknown) (no date) (unknown) [facility] (no value) [facility] Result panel 5904 (unknown) (no date) (unknown) [facility] (no value) [facility] Result panel 5905 (unknown) (no date) (unknown) [facility] (no value) [facility] Result panel 5906 (unknown) (no date) (unknown) [facility] (no value) [facility] Result panel 5907 (unknown) (no date) (unknown) [facility] (no value) [facility] Result panel 5908 (unknown) (no date) (unknown) [facility] (no value) [facility] Result panel 5909 (unknown) (no date) (unknown) [facility] (no value) [facility] Result panel 5910 (unknown) (no date) (unknown) [facility] (no value) [facility] Result panel 5911 (unknown) (no date) (unknown) [facility] (no value) [facility] Result panel 5912 (unknown) (no date) (unknown) [facility] (no value) [facility] Result panel 5913 (unknown) (no date) (unknown) [facility] (no value) [facility] Result panel 5914 (unknown) (no date) (unknown) [facility] (no value) [facility] Result panel 5915 (unknown) (no date) (unknown) [facility] (no value) [facility] Result panel 5916 (unknown) (no date) (unknown) [facility] (no value) [facility] Result panel 5917 (unknown) (no date) (unknown) [facility] (no value) [facility] Result panel 5918 (unknown) (no date) (unknown) [facility] (no value) [facility] Result panel 5919 (unknown) (no date) (unknown) [facility] (no value) [facility] Result panel 5920 (unknown) (no date) (unknown) [facility] (no value) [facility] Result panel 5921 (unknown) (no date) (unknown) [facility] (no value) [facility] Result panel 5922 (unknown) (no date) (unknown) [facility] (no value) [facility] Result panel 5923 (unknown) (no date) (unknown) [facility] (no value) [facility] Result panel 5924 (unknown) (no date) (unknown) [facility] (no value) [facility] Result panel 5925 (unknown) (no date) (unknown) [facility] (no value) [facility] Result panel 5926 (unknown) (no date) (unknown) [facility] (no value) [facility] Result panel 5927 (unknown) (no date) (unknown) [facility] (no value) [facility] Result panel 5928 (unknown) (no date) (unknown) [facility] (no value) [facility] Result panel 5929 (unknown) (no date) (unknown) [facility] (no value) [facility] Result panel 5930 (unknown) (no date) (unknown) [facility] (no value) [facility] Result panel 5931 (unknown) (no date) (unknown) [facility] (no value) [facility] Result panel 5932 (unknown) (no date) (unknown) [facility] (no value) [facility] Result panel 5933 (unknown) (no date) (unknown) [facility] (no value) [facility] Result panel 5934 (unknown) (no date) (unknown) [facility] (no value) [facility] Result panel 5935 (unknown) (no date) (unknown) [facility] (no value) [facility] Result panel 5936 (unknown) (no date) (unknown) [facility] (no value) [facility] Result panel 5937 (unknown) (no date) (unknown) [facility] (no value) [facility] Result panel 5938 (unknown) (no date) (unknown) [facility] (no value) [facility] Result panel 5939 (unknown) (no date) (unknown) [facility] (no value) [facility] Result panel 5940 (unknown) (no date) (unknown) [facility] (no value) [facility] Result panel 5941 (unknown) (no date) (unknown) [facility] (no value) [facility] Result panel 5942 (unknown) (no date) (unknown) [facility] (no value) [facility] Result panel 5943 (unknown) (no date) (unknown) [facility] (no value) [facility] Result panel 5944 (unknown) (no date) (unknown) [facility] (no value) [facility] Result panel 5945 (unknown) (no date) (unknown) [facility] (no value) [facility] Result panel 5946 (unknown) (no date) (unknown) [facility] (no value) [facility] Result panel 5947 (unknown) (no date) (unknown) [facility] (no value) [facility] Result panel 5948 (unknown) (no date) (unknown) [facility] (no value) [facility] Result panel 5949 (unknown) (no date) (unknown) [facility] (no value) [facility] Result panel 5950 (unknown) (no date) (unknown) [facility] (no value) [facility] Result panel 5951 (unknown) (no date) (unknown) [facility] (no value) [facility] Result panel 5952 (unknown) (no date) (unknown) [facility] (no value) [facility] Result panel 5953 (unknown) (no date) (unknown) [facility] (no value) [facility] Result panel 5954 (unknown) (no date) (unknown) [facility] (no value) [facility] Result panel 5955 (unknown) (no date) (unknown) [facility] value[facility] Result panel 5956 (unknown) (no date) (unknown) [facility] (no value) [facility] Result panel 5957 (unknown) (no date) (unknown) [facility] (no value) [facility] Result panel 5958 (unknown) (no date) (unknown) [facility] (no value) [facility] Result panel 5959 (unknown) (no date) (unknown) [facility] (no value) [facility] Result panel 5960 (unknown) (no date) (unknown) [facility] (no value) [facility] Result panel 5961 (unknown) (no date) (unknown) [facility] (no value) [facility] Result panel 5962 (unknown) (no date) (unknown) [facility] (no value) [facility] Result panel 5963 (unknown) (no date) (unknown) [facility] (no value) [facility] Result panel 5964 (unknown) (no date) (unknown) [facility] (no value) [facility] Result panel 5965 (unknown) (no date) (unknown) [facility] (no value) [facility] Result panel 5966 (unknown) (no date) (unknown) [facility] (no value) [facility] Result panel 5967 (unknown) (no date) (unknown) [facility] (no value) [facility] Result panel 5968 (unknown) (no date) (unknown) [facility] (no value) [facility] Result panel 5969 (unknown) (no date) (unknown) [facility] (no value) [facility] Result panel 5970 (unknown) (no date) (unknown) [facility] (no value) [facility] Result panel 5971 (unknown) (no date) (unknown) [facility] (no value) [facility] Result panel 5972 (unknown) (no date) (unknown) [facility] (no value) [facility] Result panel 5973 (unknown) (no date) (unknown) [facility] (no value) [facility] Result panel 5974 (unknown) (no date) (unknown) [facility] (no value) [facility] Result panel 5975 (unknown) (no date) (unknown) [facility] (no value) [facility] Result panel 5976 (unknown) (no date) (unknown) [facility] (no value) [facility] Result panel 5977 (unknown) (no date) (unknown) [facility] (no value) [facility] Result panel 5978 (unknown) (no date) (unknown) [facility] (no value) [facility] Result panel 5979 (unknown) (no date) (unknown) [facility] (no value) [facility] Result panel 5980 (unknown) (no date) (unknown) [facility] (no value) [facility] Result panel 5981 (unknown) (no date) (unknown) [facility] (no value) [facility] Result panel 5982 (unknown) (no date) (unknown) [facility] (no value) [facility] Result panel 5983 (unknown) (no date) (unknown) [facility] (no value) [facility] Result panel 5984 (unknown) (no date) (unknown) [facility] (no value) [facility] Result panel 5985 (unknown) (no date) (unknown) [facility] (no value) [facility] Result panel 5986 (unknown) (no date) (unknown) [facility] ([facility] value) [facility] Result panel 5987 (unknown) (no date) (unknown) [facility] (no value) [facility] Result panel 5988 (unknown) (no date) (unknown) [facility] (no value) [facility] Result panel 5989 (unknown) (no date) (unknown) [facility] (no value) [facility] Result panel 5990 (unknown) (no date) (unknown) [facility] (no value) [facility] Result panel 5991 (unknown) (no date) (unknown) [facility] (no value) [facility] Result panel 5992 (unknown) (no date) (unknown) [facility] (no value) [facility] Result panel 5993 (unknown) (no date) (unknown) [facility] (no value) [facility] Result panel 5994 (unknown) (no date) (unknown) [facility] (no value) [facility] Result panel 5995 (unknown) (no date) (unknown) [facility] (no value) [facility] Result panel 5996 (unknown) (no date) (unknown) [facility] (no value) [facility] Result panel 5997 (unknown) (no date) (unknown) [facility] (no value) [facility] Result panel 5998 (unknown) (no date) (unknown) [facility] (no value) [facility] Result panel 5999 (unknown) (no date) (unknown) [facility] (no value) [facility] Result panel 6000 (unknown) (no date) (unknown) [facility] (no value) [facility] Result panel 6001 (unknown) (no date) (unknown) [facility] (no value) [facility] Result panel 6002 (unknown) (no date) (unknown) [facility] (no value) [facility] Result panel 6003 (unknown) (no date) (unknown) [facility] (no value) [facility] Result panel 6004 (unknown) (no date) (unknown) [facility] (no value) [facility] Result panel 6005 (unknown) (no date) (unknown) [facility] (no value) [facility] Result panel 6006 (unknown) (no date) (unknown) [facility] (no value) [facility] Result panel 6007 (unknown) (no date) (unknown) [facility] (no value) [facility] Result panel 6008 (unknown) (no date) (unknown) [facility] (no value) [facility] Result panel 6009 (unknown) (no date) (unknown) [facility] (no value) [facility] Result panel 6010 (unknown) (no date) (unknown) [facility] (no value) [facility] Result panel 6011 (unknown) (no date) (unknown) [facility] (no value) [facility] Result panel 6012 (unknown) (no date) (unknown) [facility] (no value) [facility] Result panel 6013 (unknown) (no date) (unknown) [facility] (no value) [facility] Result panel 6014 (unknown) (no date) (unknown) [facility] (no value) [facility] Result panel 6015 (unknown) (no date) (unknown) [facility] (no value) [facility] Result panel 6016 (unknown) (no date) (unknown) [facility] (no value) [facility] Result panel 6017 (unknown) (no date) (unknown) [facility] (no value) [facility] Result panel 6018 (unknown) (no date) (unknown) [facility] value[facility] Result panel 6019 (unknown) (no date) (unknown) [facility] ([facility] value) [facility] Result panel 6020 (unknown) (no date) (unknown) [facility] (no value) [facility] Result panel 6021 (unknown) (no date) (unknown) [facility] (no value[facility] Result panel 6022 (unknown) (no date) (unknown) [facility] (no value) [facility] Result panel 6023 (unknown) (no date) (unknown) [facility] (no value) [facility] Result panel 6024 (unknown) (no date) (unknown) [facility] (no value) [facility] Result panel 6025 (unknown) (no date) (unknown) [facility] (no value) [facility] Result panel 6026 (unknown) (no date) (unknown) [facility] (no value) [facility] Result panel 6027 (unknown) (no date) (unknown) [facility] (no value) [facility] Result panel 6028 (unknown) (no date) (unknown) [facility] (no value) [facility] Result panel 6029 (unknown) (no date) (unknown) [facility] (no value) [facility] Result panel 6030 (unknown) (no date) (unknown) [facility] (no value) [facility] Result panel 6031 (unknown) (no date) (unknown) [facility] (no value) [facility] Result panel 6032 (unknown) (no date) (unknown) [facility] (no value) [facility] Result panel 6033 (unknown) (no date) (unknown) [facility] (no value) [facility] Result panel 6034 (unknown) (no date) (unknown) [facility] (no value) [facility] Result panel 6035 (unknown) (no date) (unknown) [facility] (no value) [facility] Result panel 6036 (unknown) (no date) (unknown) [facility] (no value) [facility] Result panel 6037 (unknown) (no date) (unknown) [facility] (no value) [facility] Result panel 6038 (unknown) (no date) (unknown) [facility] (no value) [facility] Result panel 6039 (unknown) (no date) (unknown) [facility] (no value) [facility] Result panel 6040 (unknown) (no date) (unknown) [facility] (no value) [facility] Result panel 6041 (unknown) (no date) (unknown) [facility] (no value) [facility] Result panel 6042 (unknown) (no date) (unknown) [facility] (no value) [facility] Result panel 6043 (unknown) (no date) (unknown) [facility] (no value) [facility] Result panel 6044 (unknown) (no date) (unknown) [facility] value[facility] Result panel 6045 (unknown) (no date) (unknown) [facility] (no value) [facility] Result panel 6046 (unknown) (no date) (unknown) [facility] (no value) [facility] Result panel 6047 (unknown) (no date) (unknown) [facility] (no value) [facility] Result panel 6048 (unknown) (no date) (unknown) [facility] (no value) [facility] Result panel 6049 (unknown) (no date) (unknown) [facility] (no value) [facility] Result panel 6050 (unknown) (no date) (unknown) [facility] (no value) [facility] Result panel 6051 (unknown) (no date) (unknown) [facility] (no value) [facility] Result panel 6052 (unknown) (no date) (unknown) [facility] (no value) [facility] Result panel 6053 (unknown) (no date) (unknown) [facility] (no value) [facility] Result panel 6054 (unknown) (no date) (unknown) [facility] (no value) [facility] Result panel 6055 (unknown) (no date) (unknown) [facility] (no value) [facility] Result panel 6056 (unknown) (no date) (unknown) [facility] (no value) [facility] Result panel 6057 (unknown) (no date) (unknown) [facility] (no value) [facility] Result panel 6058 (unknown) (no date) (unknown) [facility] (no value) [facility] Result panel 6059 (unknown) (no date) (unknown) [facility] (no value) [facility] Result panel 6060 (unknown) (no date) (unknown) [facility] (no value) [facility] Result panel 6061 (unknown) (no date) (unknown) [facility] (no value) [facility] Result panel 6062 (unknown) (no date) (unknown) [facility] (no value) [facility] Result panel 6063 (unknown) (no date) (unknown) [facility] (no value) [facility] Result panel 6064 (unknown) (no date) (unknown) [facility] (no value) [facility] Result panel 6065 (unknown) (no date) (unknown) [facility] (no value) [facility] Result panel 6066 (unknown) (no date) (unknown) [facility] (no value) [facility] Result panel 6067 (unknown) (no date) (unknown) [facility] (no value) [facility] Result panel 6068 (unknown) (no date) (unknown) [facility] (no value) [facility] Result panel 6069 (unknown) (no date) (unknown) [facility] (no value) [facility] Result panel 6070 (unknown) (no date) (unknown) [facility] (no value) [facility] Result panel 6071 (unknown) (no date) (unknown) [facility] (no value) [facility] Result panel 6072 (unknown) (no date) (unknown) [facility] (no value) [facility] Result panel 6073 (unknown) (no date) (unknown) [facility] (no value) [facility] Result panel 6074 (unknown) (no date) (unknown) [facility] (no value) [facility] Result panel 6075 (unknown) (no date) (unknown) [facility] (no value) [facility] Result panel 6076 (unknown) (no date) (unknown) [facility] (no value) [facility] Result panel 6077 (unknown) (no date) (unknown) [facility] (no value) [facility] Result panel 6078 (unknown) (no date) (unknown) [facility] (no value) [facility] Result panel 6079 (unknown) (no date) (unknown) [facility] (no value) [facility] Result panel 6080 (unknown) (no date) (unknown) [facility] (no value) [facility] Result panel 6081 (unknown) (no date) (unknown) [facility] (no value) [facility] Result panel 6082 (unknown) (no date) (unknown) [facility] (no value) [facility] Result panel 6083 (unknown) (no date) (unknown) [facility] (no value) [facility] Result panel 6084 (unknown) (no date) (unknown) [facility] (no value) [facility] Result panel 6085 (unknown) (no date) (unknown) [facility] (no value) [facility] Result panel 6086 (unknown) (no date) (unknown) [facility] (no value) [facility] Result panel 6087 (unknown) (no date) (unknown) [facility] (no value) [facility] Result panel 6088 (unknown) (no date) (unknown) [facility] (no value) [facility] Result panel 6089 (unknown) (no date) (unknown) [facility] (no value) [facility] Result panel 6090 (unknown) (no date) (unknown) [facility] (no value) [facility] Result panel 6091 (unknown) (no date) (unknown) [facility] (no value) [facility] Result panel 6092 (unknown) (no date) (unknown) [facility] (no value) [facility] Result panel 6093 (unknown) (no date) (unknown) [facility] (no value) [facility] Result panel 6094 (unknown) (no date) (unknown) [facility] (no value) [facility] Result panel 6095 (unknown) (no date) (unknown) [facility] (no value) [facility] Result panel 6096 (unknown) (no date) (unknown) [facility] (no value) [facility] Result panel 6097 (unknown) (no date) (unknown) [facility] (no value) [facility] Result panel 6098 (unknown) (no date) (unknown) [facility] (no value) [facility] Result panel 6099 (unknown) (no date) (unknown) [facility] (no value) [facility] Result panel 6100 (unknown) (no date) (unknown) [facility] (no value) [facility] Result panel 6101 (unknown) (no date) (unknown) [facility] (no value) [facility] Result panel 6102 (unknown) (no date) (unknown) [facility] (no value) [facility] Result panel 6103 (unknown) (no date) (unknown) [facility] (no value) [facility] Result panel 6104 (unknown) (no date) (unknown) [facility] (no value) [facility] Result panel 6105 (unknown) (no date) (unknown) [facility] (no value) [facility] Result panel 6106 (unknown) (no date) (unknown) [facility] (no value) [facility] Result panel 6107 (unknown) (no date) (unknown) [facility] (no value) [facility] Result panel 6108 (unknown) (no date) (unknown) [facility] (no value) [facility] Result panel 6109 (unknown) (no date) (unknown) [facility] (no value) [facility] Result panel 6110 (unknown) (no date) (unknown) [facility] (no value) [facility] Result panel 6111 (unknown) (no date) (unknown) [facility] (no value) [facility] Result panel 6112 (unknown) (no date) (unknown) [facility] (no value[facility] Result panel 6113 (unknown) (no date) (unknown) [facility] (no value) [facility] Result panel 6114 (unknown) (no date) (unknown) [facility] (no value) [facility] Result panel 6115 (unknown) (no date) (unknown) [facility] (no value) [facility] Result panel 6116 (unknown) (no date) (unknown) [facility] (no value) [facility] Result panel 6117 (unknown) (no date) (unknown) [facility] (no value) [facility] Result panel 6118 (unknown) (no date) (unknown) [facility] (no value) [facility] Result panel 6119 (unknown) (no date) (unknown) [facility] (no value) [facility] Result panel 6120 (unknown) (no date) (unknown) [facility] (no value) [facility] Result panel 6121 (unknown) (no date) (unknown) [facility] (no value) [facility] Result panel 6122 (unknown) (no date) (unknown) [facility] (no value) [facility] Result panel 6123 (unknown) (no date) (unknown) [facility] (no value) [facility] Result panel 6124 (unknown) (no date) (unknown) [facility] (no value) [facility] Result panel 6125 (unknown) (no date) (unknown) [facility] (no value) [facility] Result panel 6126 (unknown) (no date) (unknown) [facility] (no value) [facility] Result panel 6127 (unknown) (no date) (unknown) [facility] (no value) [facility] Result panel 6128 (unknown) (no date) (unknown) [facility] (no value) [facility] Result panel 6129 (unknown) (no date) (unknown) [facility] (no value) [facility] Result panel 6130 (unknown) (no date) (unknown) [facility] (no value) [facility] Result panel 6131 (unknown) (no date) (unknown) [facility] (no value) [facility] Result panel 6132 (unknown) (no date) (unknown) [facility] (no value) [facility] Result panel 6133 (unknown) (no date) (unknown) [facility] (no value) [facility] Result panel 6134 (unknown) (no date) (unknown) [facility] (no value) [facility] Result panel 6135 (unknown) (no date) (unknown) [facility] (no value) [facility] Result panel 6136 (unknown) (no date) (unknown) [facility] (no value) [facility] Result panel 6137 (unknown) (no date) (unknown) [facility] (no value) [facility] Result panel 6138 (unknown) (no date) (unknown) [facility] (no value) [facility] Result panel 6139 (unknown) (no date) (unknown) [facility] (no value) [facility] Result panel 6140 (unknown) (no date) (unknown) [facility] (no value) [facility] Result panel 6141 (unknown) (no date) (unknown) [facility] (no value) [facility] Result panel 6142 (unknown) (no date) (unknown) [facility] (no value) [facility] Result panel 6143 (unknown) (no date) (unknown) [facility] (no value) [facility] Result panel 6144 (unknown) (no date) (unknown) [facility] (no value) [facility] Result panel 6145 (unknown) (no date) (unknown) [facility] (no value) [facility] Result panel 6146 (unknown) (no date) (unknown) [facility] (no value) [facility] Result panel 6147 (unknown) (no date) (unknown) [facility] (no value) [facility] Result panel 6148 (unknown) (no date) (unknown) [facility] (no value) [facility] Result panel 6149 (unknown) (no date) (unknown) [facility] (no value) [facility] Result panel 6150 (unknown) (no date) (unknown) [facility] (no value) [facility] Result panel 6151 (unknown) (no date) (unknown) [facility] (no value) [facility] Result panel 6152 (unknown) (no date) (unknown) [facility] (no value) [facility] Result panel 6153 (unknown) (no date) (unknown) [facility] (no value) [facility] Result panel 6154 (unknown) (no date) (unknown) [facility] (no value) [facility] Result panel 6155 (unknown) (no date) (unknown) [facility] (no value) [facility] Result panel 6156 (unknown) (no date) (unknown) [facility] (no value) [facility] Result panel 6157 (unknown) (no date) (unknown) [facility] (no value) [facility] Result panel 6158 (unknown) (no date) (unknown) [facility] (no value) [facility] Result panel 6159 (unknown) (no date) (unknown) [facility] (no value) [facility] Result panel 6160 (unknown) (no date) (unknown) [facility] (no value) [facility] Result panel 6161 (unknown) (no date) (unknown) [facility] (no value) [facility] Result panel 6162 (unknown) (no date) (unknown) [facility] (no value) [facility] Result panel 6163 (unknown) (no date) (unknown) [facility] (no value) [facility] Result panel 6164 (unknown) (no date) (unknown) [facility] (no value) [facility] Result panel 6165 (unknown) (no date) (unknown) [facility] (no value) [facility] Result panel 6166 (unknown) (no date) (unknown) [facility] (no value) [facility] Result panel 6167 (unknown) (no date) (unknown) [facility] (no value) [facility] Result panel 6168 (unknown) (no date) (unknown) [facility] (no value) [facility] Result panel 6169 (unknown) (no date) (unknown) [facility] (no value) [facility] Result panel 6170 (unknown) (no date) (unknown) [facility] (no value) [facility] Result panel 6171 (unknown) (no date) (unknown) [facility] (no value) [facility] Result panel 6172 (unknown) (no date) (unknown) [facility] (no value) [facility] Result panel 6173 (unknown) (no date) (unknown) [facility] (no value) [facility] Result panel 6174 (unknown) (no date) (unknown) [facility] (no value) [facility] Result panel 6175 (unknown) (no date) (unknown) [facility] (no value) [facility] Result panel 6176 (unknown) (no date) (unknown) [facility] (no value) [facility] Result panel 6177 (unknown) (no date) (unknown) [facility] (no value) [facility] Result panel 6178 (unknown) (no date) (unknown) [facility] (no value) [facility] Result panel 6179 (unknown) (no date) (unknown) [facility] (no value) [facility] Result panel 6180 (unknown) (no date) (unknown) [facility] (no value) [facility] Result panel 6181 (unknown) (no date) (unknown) [facility] (no value) [facility] Result panel 6182 (unknown) (no date) (unknown) [facility] (no value) [facility] Result panel 6183 (unknown) (no date) (unknown) [facility] (no value) [facility] Result panel 6184 (unknown) (no date) (unknown) [facility] (no value) [facility] Result panel 6185 (unknown) (no date) (unknown) [facility] (no value) [facility] Result panel 6186 (unknown) (no date) (unknown) [facility] (no value) [facility] Result panel 6187 (unknown) (no date) (unknown) Walk-In (no value) (units [facility] nown) [facility] Result panel 6188 (unknown) (no date) (unknown) Walk-In (no value) [facility]units [facility]own[facility] Result panel 6189 (unknown) (no date) (unknown) [facility] (no value) [facility]units [facility] nown) [facility] Result panel 6190 (unknown) (no date) (unknown) Walk-In (no value) [facility]units [facility] nown) [facility] Result panel 6191 (unknown) (no date) (unknown) Walk-In (no value) [facility]units ([facility] nown) [facility] Result panel 6192 (unknown) (no date) (unknown) Walk-[facility] (no value) [facility]units [facility] nown) [facility] Result panel 6193 (unknown) (no date) (unknown) Walk-In (no value) [facility]units [facility] nown) [facility] Result panel 6194 (unknown) (no date) (unknown) Walk-In (no value) [facility]units ([facility] nown) [facility] Result panel 6195 (unknown) (no date) (unknown) [facility]-In (no value) [facility]units ([facility] nown) [facility] Result panel 6196 (unknown) (no date) (unknown) [facility]-In (no value) [facility]units [facility] nown) [facility] Result panel 6197 (unknown) (no date) (unknown) Walk-In (no value) [facility]units ([facility] nown) [facility] Result panel 6198 (unknown) (no date) (unknown) [facility]-In (no value) [facility]units [facility] nown) [facility] Result panel 6199 (unknown) (no date) (unknown) [facility] (no value) [facility]units [facility]own) [facility] Result panel 6200 (unknown) (no date) (unknown) Walk-In (no value) [facility]units ([facility] nown) [facility] Result panel 6201 (unknown) (no date) (unknown) [facility]-In (no value) [facility]units [facility] nown) [facility] Result panel 6202 (unknown) (no date) (unknown) [facility]-In (no value) [facility]units [facility] nown) [facility] Result panel 6203 (unknown) (no date) (unknown) Walk-In (no value) [facility]units [facility]own) [facility] Result panel 6204 (unknown) (no date) (unknown) Walk-In (no value) [facility]units [facility]own[facility] Result panel 6205 (unknown) (no date) (unknown) Walk-In (no value) [facility]units [facility] nown) [facility] Result panel 6206 (unknown) (no date) (unknown) Walk-In (no value) [facility]units ([facility] nown) [facility] Result panel 6207 (unknown) (no date) (unknown) Walk-In (no value) [facility]units [facility] nown) [facility] Result panel 6208 (unknown) (no date) (unknown) Walk-In (no value) [facility]units [facility] nown) [facility] Result panel 6209 (unknown) (no date) (unknown) Walk-In (no value) [facility]units [facility]own) [facility] Result panel 6210 (unknown) (no date) (unknown) Walk-In (no value) [facility]units [facility]own) [facility] Result panel 6211 (unknown) (no date) (unknown) Walk-[facility] (no value) [facility]units [facility]own[facility] Result panel 6212 (unknown) (no date) (unknown) Walk-In (no value) [facility]units [facility]own) [facility] Result panel 6213 (unknown) (no date) (unknown) Walk-In (no value) [facility]units [facility]own) [facility] Result panel 6214 (unknown) (no date) (unknown) Walk-In (no value) [facility]units [facility]own[facility] Result panel 6215 (unknown) (no date) (unknown) Walk-In (no value) [facility]units [facility] nown) [facility] Result panel 6216 (unknown) (no date) (unknown) Walk-In (no value) [facility]units [facility] nown) [facility] Result panel 6217 (unknown) (no date) (unknown) [facility]-In (no value) [facility]units [facility] nown) [facility] Result panel 6218 (unknown) (no date) (unknown) Walk-In (no value) [facility]units [facility]own) [facility] Result panel 6219 (unknown) (no date) (unknown) Walk-In (no value) [facility]units [facility]own) [facility] Result panel 6220 (unknown) (no date) (unknown) [facility] (no value) [facility]units [facility]own) [facility] Result panel 6221 (unknown) (no date) (unknown) Walk-In (no value) [facility]units [facility]own) [facility] Result panel 6222 (unknown) (no date) (unknown) Walk-[facility] (no value) [facility]units [facility]own) [facility] Result panel 6223 (unknown) (no date) (unknown) Walk-In (no value) [facility]units [facility]own[facility] Result panel 6224 (unknown) (no date) (unknown) Walk-In (no value) [facility]units [facility] nown[facility] Result panel 6225 (unknown) (no date) (unknown) Walk-In (no value) [facility]units [facility] nown) [facility] Result panel 6226 (unknown) (no date) (unknown) Walk-[facility] (no value) [facility]units [facility]own[facility] Result panel 6227 (unknown) (no date) (unknown) Walk-In (no value) [facility]units [facility] nown) [facility] Result panel 6228 (unknown) (no date) (unknown) [facility]-In (no value) [facility]units [facility] nown) [facility] Result panel 6229 (unknown) (no date) (unknown) Walk-[facility] (no value) [facility]units [facility]own[facility] Result panel 6230 (unknown) (no date) (unknown) [facility] (no value) [facility]units [facility] nown[facility] Result panel 6231 (unknown) (no date) (unknown) Walk-[facility] (no value) [facility]units [facility]own[facility] Result panel 6232 (unknown) (no date) (unknown) [facility] (no value) [facility]units [facility]own[facility] Result panel 6233 (unknown) (no date) (unknown) Walk-[facility] (no value) [facility]units [facility] nown[facility] Result panel 6234 (unknown) (no date) (unknown) Walk-In (no value) [facility]units [facility] nown) [facility] Result panel 6235 (unknown) (no date) (unknown) Walk-[facility] (no value) [facility]units [facility] nown[facility] Result panel 6236 (unknown) (no date) (unknown) [facility] (no value) [facility]units [facility] nown) [facility] Result panel 6237 (unknown) (no date) (unknown) Walk-[facility] (no value) [facility]units [facility]own[facility] Result panel 6238 (unknown) (no date) (unknown) Walk-[facility] (no value) [facility]units [facility] nown[facility] Result panel 6239 (unknown) (no date) (unknown) [facility] (no value) [facility]units [facility]own[facility] Result panel 6240 (unknown) (no date) (unknown) Walk-[facility] (no value) [facility]units [facility]own[facility] Result panel 6241 (unknown) (no date) (unknown) [facility] (no value) [facility]units [facility]own[facility] Result panel 6242 (unknown) (no date) (unknown) [facility] (no value) [facility]units [facility]own[facility] Result panel 6243 (unknown) (no date) (unknown) [facility] (no value) [facility]units [facility] nown[facility] Result panel 6244 (unknown) (no date) (unknown) [facility] (no value) [facility]units [facility]own[facility] Result panel 6245 (unknown) (no date) (unknown) [facility] (no value) [facility]units [facility] nown[facility] Result panel 6246 (unknown) (no date) (unknown) [facility] (no value) [facility]units [facility] nown[facility] Result panel 6247 (unknown) (no date) (unknown) Walk-[facility] (no value) [facility]units [facility] nown[facility] Social History date description facility 2022-05-18 00:00 Never smoker [facility] Vital Signs date measurement value units 2022-05-18 00:00 BMI 27.66 kg/m2 2022-05-18 00:00 BP_diastolic 93 mmHg 2022-05-18 00:00 BP_systolic 140 mmHg 2022-05-18 00:00 heart_rate 110 /min 2022-05-18 00:00 height_metric 180.97 cm 2022-05-18 00:00 height_standard 71.25 in 2022-05-18 00:00 respiration_rate 16 /min 2022-05-18 00:00 temperature_metric 36.06 C 2022-05-18 00:00 temperature_standard 96.9 F 2022-05-18 00:00 weight_metric 90.26 kg 2022-05-18 00:00 weight_standard 199 lb
--- NOTE | 2022-07-14 14:37 | CT Report ---
PROCEDURE: ANGIO CHEST W/WO INDICATIONS: dyspnea, h/o PE 02/2022 CONTRAST: 80ml omni 300 TECHNIQUE: After the administration of intravenous contrast, 2 mm axial images were acquired from the pulmonary apices to the posterior costophrenic angles during the arterial phase. In addition, 1 mm lung kernel and 5 mm soft tissue kernel reconstructions were performed. 3-dimensional coronal oblique maximum int ensity projection (MIP) reformats, 8 mm axial MIP, and 5 mm coronal and sagittal MPR reformats were t hen performed through the thorax. For radiation dose reduction, the following was used: automated exp osure control, adjustment of mA and/or kV according to patient size. COMPARISON: CT abdomen pelvis 04/30/2022. FINDINGS: Image quality: Excellent. Pulmonary arteries: Pulmonary arteries are normal in size, and demonstrate no intraluminal filling d efects to suggest central pulmonary embolism. Lungs and pleura: Right major fissure pulmonary nodule measuring 0.4 cm. No pleural effusions or pneu mothorax. Central and peripheral airways are patent. Mediastinum: Heart size is normal, without pericardial effusion. No mediastinal or hilar adenopathy . Thoracic aorta is normal in caliber and enhancement. Esophagus is normal in caliber, without hiat al hernia. Bones and chest wall: No suspicious bony lesions. Prior left-sided rib fracture. No axillary or supr aclavicular adenopathy. The thyroid is normal in size and there are no incidental findings. Abdomen: Left kidney is enlarged compared to the right. The left kidney appears larger than the prior CT. The left renal pelvis is dilated. The left kidney is only partially visualized. No adrenal nodul e. No calcified gallstones. IMPRESSION: 1. No pulmonary embolism. 2. No acute airspace opacity. 3. Left kidney is enlarged. Left renal collecting system appears dilated. This can be further evaluated with ultrasound or CT. Results were communicated to Dr. Alfredo Savage at 07/14/2022 2:35 PM PST. Reviewed by: Bijan Dobson MD on 07/14/2022 2:35 PM PST Approved by: Bijan Dobson MD on 07/14/2022 2:35 PM PST Station ID: [id number]
[2022-07-14] MEDS ORDERED: LIDOCAINE-MPF 2% 6 ML in SODIUM CHLORIDE 0.9% 50 ML IV STA (15:48)
[2022-07-14 15:52] LABS: BILIRUBIN,URINE NEGATIVE (NEGATIVE); GLUCOSE, URINE (UA) NEGATIVE (NEGATIVE); KETONES,URINE (UA) NEGATIVE (NEGATIVE); LEUKOCYTE ESTERASE, URINE MODERATE (NEGATIVE); NITRITE,URINE NEGATIVE (NEGATIVE); OCCULT BLOOD,URINE MODERATE (NEGATIVE); PROTEIN,URINE 30 mg/dL (NEGATIVE); UROBILINOGEN,URINE 0.2 (NORMAL) E.U./dL (NORMAL)
[2022-07-14 15:53] LABS: CLARITY,URINE CLOUDY (CLEAR)
--- NOTE | 2022-07-14 15:57 | CT Report ---
PROCEDURE: ABDOMEN/PELVIS WO INDICATIONS: L hydronephrosis TECHNIQUE: Noncontrast 5 mm thick sections acquired from the diaphragms to the symphysis. 5 mm coronal and sagi ttal reformats were then performed. For radiation dose reduction, the following was used: automated exposure control, adjustment of mA and/or kV according to patient size. COMPARISON: CT angiogram of the chest from today, performed at 1409 hours, noncontrast CT of the abd omen and pelvis dated 04/30/2022 FINDINGS: Image quality: Excellent. ABDOMEN: Lung bases: Lung bases are clear. Heart size is normal. Solid organs: Liver and spleen are normal in size. Gallbladder is unremarkable without calcified ga llstones. Pancreas is normal in contours. No adrenal nodules. There is moderate left hydronephrosis and hydroureter. There is an obstructing stone at the level of L4-L5 which measures approximately 14 x 7 x 12 mm. There is no right hydronephrosis. The right ureter is of normal caliber. Peritoneum and bowel: Unenhanced bowel loops demonstrate normal wall thickness and caliber. Mild div erticulosis without evidence of diverticulitis. No free fluid or air. Nodes and vessels: No retroperitoneal or mesenteric adenopathy by size criteria. Aorta and inferior vena cava are normal in caliber. Miscellaneous: No ventral hernias. PELVIS: Genitourinary: Bladder wall thickness is normal. Miscellaneous: No inguinal hernias or adenopathy. Bones: Orthopedic hardware, right hip. Again noted is a markedly comminuted displaced left iliac win g fracture. There is associated mildly peripherally enhancing fluid posteriorly which is diminished compared to t he study from April, measuring 4.8 x 3.8 cm, likely consistent with a chronic hematoma. No suspici ous bony lesions. No vertebral body compression fractures. IMPRESSION: 1. A large stone obstructs the left ureter at L4-L5, resulting in moderate left hydronephrosis. 2. Markedly comminuted left iliac wing fracture again noted with what appears to be an associated chr onic hematoma. Reviewed by: Cale Alston MD on 07/14/2022 3:56 PM PST Approved by: Cale Alston MD on 07/14/2022 3:56 PM PST Station ID: [id number]
[2022-07-14 16:01] LABS: WBC,URINE >25 /HPF (0-3)
[2022-07-14 16:02] LABS: BACTERIA,URINE Many /HPF (None Seen); SQUAMOUS EPITHELIAL CELL,UR NONE SEEN (<= Few)
[2022-07-14] MEDS ORDERED: MEROPENEM 1 GM in SODIUM CHLORIDE 0.9% MINIBAG 100 ML IV STA (16:50)
[2022-07-14 18:20] LABS: B. PARAPERTUSSIS- RESP PCR PAN NOT DETECTED; B. PERTUSSIS- RESP PCR PANEL NOT DETECTED; C. PNEUMONIAE- RESP PCR PANEL NOT DETECTED; CORONAVIRUS 229E-RESP PCR NOT DETECTED; CORONAVIRUS HKU1-RESP PCR NOT DETECTED; CORONAVIRUS NL63-RESP PCR NOT DETECTED; CORONAVIRUS OC43-RESP PCR NOT DETECTED; HUMAN METAPNEUMOVIRUS NOT DETECTED; INFLUENZA A- RESP PCR PANEL NOT DETECTED; INFLUENZA B - RESP PCR PANEL NOT DETECTED; M. PNEUMONIAE- RESP PCR PANEL NOT DETECTED; PARAINFLUENZA VIRUS 1 NOT DETECTED; PARAINFLUENZA VIRUS 2 NOT DETECTED; PARAINFLUENZA VIRUS 3 NOT DETECTED; PARAINFLUENZA VIRUS 4 NOT DETECTED; RHINOVIRUS/ENTEROVIRUS NOT DETECTED; RSV- RESP PCR PANEL NOT DETECTED; SARS-CoV-2 -RESP PCR PANEL NOT DETECTED
[2022-07-14] MEDS: HYDROmorphone 1 MG/ML CARPUJECT IVP PRN (20:13)
[2022-07-14] MEDS: ONDANSETRON 4 MG/2 ML VIAL IVP PRN (20:14)
[2022-07-14] MEDS: MEROPENEM 500 MG in SODIUM CHLORIDE 0.9% MINIBAG 100 ML IV SCH (21:10)
--- NOTE | 2022-07-14 22:22 | ED Physician Documentation ---
ED Addendum - Addendum Addendum: 07/14/22 22:21 Patient continues to board in the emergency department pending transfer for large mid ureteral stone associated with UTI likely with ESBL E. coli. He is on scheduled meropenem. At 10:21 PM I did discuss the case by phone with Dr. Ronnie Edmondson, urology at the [place]. They may have a bed available a little later at [facility] and the transfer center will call us back. Care to Dr. Leavitt at this time pending placement for infected ureteral stone.
[2022-07-14] MEDS ORDERED: SODIUM CHLORIDE 0.9% 1,000 ML IV ONE (23:41)
[2022-07-15] MEDS: HYDROmorphone 1 MG/ML CARPUJECT IVP PRN ×2 (00:52→05:38)
[2022-07-15] MEDS: ONDANSETRON 4 MG/2 ML VIAL IVP PRN (02:55)
[2022-07-15] MEDS ORDERED: ONDANSETRON 4 MG/2 ML VIAL IVP STA (05:39)
[2022-07-15] MEDS ORDERED: HYDROmorphone 0.5 MG/0.5 ML SYRINGE IVP PRN (05:43)
[2022-07-15] MEDS: MEROPENEM 500 MG in SODIUM CHLORIDE 0.9% MINIBAG 100 ML IV SCH (06:09)
[2022-07-15 07:31] LABS: BASOPHILS # (AUTO) 0.1 10^3/uL (0.0-0.1); BASOPHILS % (AUTO) 0.4 %; EOSINOPHILS % (AUTO) 0.3 %; HCT - HEMATOCRIT 34.7 % (42.0-52.0); HGB - HEMOGLOBIN 11.2 g/dL (14.0-18.0); LYMPHOCYTES # (AUTO) 0.5 10^3/uL (1.5-3.5); LYMPHOCYTES % (AUTO) 3.9 %; MEAN CORPUSCULAR HEMOGLOBIN 27.5 pg (27.0-31.0); MEAN CORPUSCULAR HGB CONC 32.3 g/dL (32.0-36.0); MEAN CORPUSCULAR VOLUME 85.3 fL (80.0-94.0); MEAN PLATELET VOLUME 9.7 fL (7.4-11.4); MONOCYTES # (AUTO) 1.3 10^3/uL (0.0-1.0); MONOCYTES % (AUTO) 9.4 %; NEUTROPHILS # (AUTO) 11.3 10^3/uL (1.5-6.6); NEUTROPHILS % (AUTO) 85.4 %; PLT - PLATELET COUNT 209 10^3/uL (130-450); RED BLOOD COUNT 4.07 10^6/uL (4.70-6.10); RED CELL DISTRIBUTION WIDTH 16.4 % (12.0-15.0); WHITE BLOOD COUNT 13.2 x10^3/uL (4.8-10.8)
[2022-07-15 07:42] LABS: ALBUMIN 2.2 g/dL (3.2-5.5); ALBUMIN/GLOBULIN RATIO 0.6 (1.0-2.2); BILIRUBIN,TOTAL 0.8 mg/dL (0.2-1.0); CALCIUM 8.1 mg/dL (8.5-10.3); CREATININE 1.3 mg/dL (0.6-1.2)
[2022-07-15 08:57] VITALS: BP 132/81
--- NOTE | 2022-07-15 10:22 | ED Physician Documentation ---
ED Addendum - Addendum Addendum: 07/15/22 10:22 Patient is doing well this morning. No fever. Lactate has normalized. White blood cell count has decreased. He has been maintained on meropenem. Blood cultures were positive for E. coli. Discussed the case with Dr. Rayo, hospitalist at [facility] in [place], who graciously accepts in transfer. COBRA forms completed. This document was made in part using voice recognition software. While efforts are made to proofread this document, sound alike and grammatical errors may occur. Departure - Departure Disposition: 02 Transfer Acute Care Hosp Clinical Impression: Ureteral stone, E coli bacteremia UTI (urinary tract infection) Qualifiers: Urinary tract infection type: acute cystitis Hematuria presence: without hematuria Qualified Code(s): N30.00 - Acute cystitis without hematuria Sepsis Qualifiers: Sepsis type: sepsis due to unspecified organism Sepsis acute organ dysfunction status: unspecified Qualified Code(s): A41.9 - Sepsis, unspecified organism Condition: Stable
[2022-07-15] MEDS ORDERED: SODIUM CHLORIDE 0.9% 1,000 ML IV STA (11:02)
== END 2022-07-15 12:30 | disposition short-term general hospital (02) ==
LOC: ED 12:45
DX: A41.51 Sepsis due to Escherichia coli [E. coli] (principal); N13.6 Pyonephrosis; E11.9 Type 2 diabetes mellitus without complications; Z79.4 Long term (current) use of insulin; Z86.711 Personal history of pulmonary embolism; Z20.822 Contact with and (suspected) exposure to COVID-19
CPT/HCPCS: 36415; 71275; 74176; 80053; 81001; 83605; 83690; 83880; 84484; 85025; 87040; 87086; 87150; 87181; 87633; 93005; 96365; 96366; 96375; 96376; 99285; J1170; J2185; J7040; Q9967; 81003

== ENCOUNTER 2022-07-15 12:24 | Outpatient (CLI) | payer MEDICARE, MEDICAID | END 2022-07-15 12:25 | disposition short-term general hospital (02) | LOC: EMS 12:24 | PROVIDERS: ATTEND Emergency Medicine | DX: A41.51 Sepsis due to Escherichia coli [E. coli] (principal); N20.1 Calculus of ureter | CPT/HCPCS: A0425; A0426 ==

== ENCOUNTER 2022-11-01 08:00 | Outpatient (CLI) | payer MEDICARE, MEDICAID ==
[2022-11-01 15:15] LABS: HCT - HEMATOCRIT 46.2 % (42.0-52.0); MEAN CORPUSCULAR HEMOGLOBIN 28.4 pg (27.0-31.0); MEAN CORPUSCULAR HGB CONC 32.5 g/dL (32.0-36.0); MEAN CORPUSCULAR VOLUME 87.5 fL (80.0-94.0); MEAN PLATELET VOLUME 9.9 fL (7.4-11.4); RED BLOOD COUNT 5.28 10^6/uL (4.70-6.10); RED CELL DISTRIBUTION WIDTH 13.8 % (12.0-15.0); WHITE BLOOD COUNT 6.1 x10^3/uL (4.8-10.8)
[2022-11-01 15:38] LABS: CREATININE 1.1 mg/dL (0.6-1.2); POTASSIUM 4.3 mmol/L (3.5-5.0)
== END 2022-11-01 23:59 | disposition home or self-care (01) ==
LOC: LAB.S 08:00
PROVIDERS: ATTEND Physician Assistant
DX: Z79.899 Other long term (current) drug therapy (principal)
CPT/HCPCS: 36415; 80048; 85027

== ENCOUNTER 2022-11-23 14:20 | Outpatient (CLI) | payer MEDICARE, MEDICAID ==
[2022-11-23 14:33] LABS: BILIRUBIN,URINE NEGATIVE (NEGATIVE); GLUCOSE, URINE (UA) NEGATIVE (NEGATIVE); KETONES,URINE (UA) NEGATIVE (NEGATIVE); LEUKOCYTE ESTERASE, URINE TRACE (NEGATIVE); NITRITE,URINE NEGATIVE (NEGATIVE); OCCULT BLOOD,URINE LARGE (NEGATIVE); PH,URINE 5.5 PH (5.0-7.5); PROTEIN,URINE 100 mg/dL (NEGATIVE); UROBILINOGEN,URINE 0.2 (NORMAL) E.U./dL (NORMAL)
[2022-11-23 14:42] LABS: BACTERIA,URINE Rare /HPF (None Seen); CLARITY,URINE SL. CLOUDY (CLEAR); RBC,URINE TNTC /HPF (0-5); SQUAMOUS EPITHELIAL CELL,UR FEW Squamous (<= Few)
== END 2022-11-23 14:21 | disposition home or self-care (01) ==
LOC: LAB.R 14:20
PROVIDERS: ATTEND Urology
DX: N20.0 Calculus of kidney (principal)
CPT/HCPCS: 81001; 87086

== ENCOUNTER 2022-12-22 12:37 | Outpatient (CLI) | payer MEDICARE, MEDICAID | END 2022-12-22 23:59 | disposition critical access hospital (66) | LOC: EMS 12:37 | DX: R42 Dizziness and giddiness (principal); R53.1 Weakness; R20.0 Anesthesia of skin; R03.0 Elevated blood-pressure reading, without diagnosis of hypertension | CPT/HCPCS: A0425; A0429 ==

== ENCOUNTER 2022-12-22 13:41 | Emergency (ER) | payer MEDICARE, MEDICAID ==
[2022-12-22 13:57] VITALS: BP 175/110
[2022-12-22] MEDS ORDERED: SODIUM CHLORIDE 0.9% 1,000 ML IV STA (13:58)
--- NOTE | 2022-12-22 13:58 | ED Physician Documentation ---
PD HPI FOCAL NEURO - Stated complaint Stated Complaint: WEAKNESS - Chief complaint Chief Complaint: Neuro - History obtained from History obtained from: Patient - Additional information Additional information: In February he was hospitalized at [facility] after a fall with multiple injuries and then was hospitalized here in March with ESBL E. coli. Subsequently went to a assisted for treatment of the E. coli and had some abscesses drained. He has been home for a few months now. Over the last week he has developed orthostatic lightheadedness. He says it started a few nights ago when he had an edible and half a beer. He was feeling weak and dizzy and thought about calling 911 at the time decided against it. Yesterday he worked very hard out in the garden lifting bricks for 10 hours. States he did not drink any water during that but afterward only had a beer and a Coke. [place] and feeling light[place] and dizzy again and went to the a tent and 911 was called. On arrival here he is not feeling too bad his lungs in the supine position. Denies any pain complaints. No chest pain. Did have a brief episode of left lower quadrant pain while urinating at the [facility] today and notes that he had a lithotripsy a couple of weeks ago. PD PAST MEDICAL HISTORY - Past Medical History Cardiovascular: Hypertension, Deep vein thrombosis Respiratory: Sleep apnea Neuro: Seizure disorder (seizure x 1, 2-3months prior, attributes to medicine) Endocrine/Autoimmune: Type 2 diabetes GI: None : Kidney stones, Other HEENT: None Psych: Claustrophobia Musculoskeletal: Other Derm: Other - Past Surgical History Ortho: Other - Present Medications Home Medications: Ambulatory Orders Medication Instructions Recorded Confirmed Metformin HCl [Metformin ER 1,000 mg PO BID #120 tab 05/12/22 11/24/22 Gastric] Levetiracetam [Keppra] 750 mg PO BID 11/24/22 11/24/22 HYDROcod/ACETAM 5/325 [[place] 5/325] 1 tab PO Q4H PRN #10 tablet 12/04/22 Ondansetron Odt [Zofran Odt] 4 mg TL Q6H PRN #10 tablet 12/04/22 Phenazopyridine HCl [Pyridium] 200 mg PO TID #9 tablet 12/04/22 Sennosides/Docusate Sodium [Colace 1 each PO DAILY #20 tablet 12/04/22 2-in-1 Tablet] cephALEXin [Keflex] 500 mg PO Q6H #1 cap 12/04/22 Losartan [Cozaar] 50 mg PO DAILY #30 tablet 12/22/22 - Allergies Allergies/Adverse Reactions: Allergies Allergy/AdvReac Type Severity Reaction Status Date / Time medazepam AdvReac Hallucinati Verified 12/22/22 13:50 ons - Social History Smoking Status: Never smoker - POLST POLST Status: Full Code PD ED PE NORMAL - Vitals Vital signs reviewed: Yes (Hypertensive) - General General: Alert and oriented X 3, No acute distress - HEENT HEENT: PERRL, EOMI - Neck Neck: Supple, no meningeal sign, No bony TTP - Cardiac Cardiac: RRR, No murmur - Respiratory Respiratory: No respiratory distress, Clear bilaterally - Abdomen Abdomen: Non tender - Back Back: No CVA TTP, No spinal TTP - Derm Derm: Normal color, Warm and dry - Extremities Extremities: No edema, No calf tenderness / cord - Neuro Neuro: Alert and oriented X 3, No motor deficit, No sensory deficit, Normal speech Eye Opening: Spontaneous Motor: Obeys Commands Verbal: Oriented GCS Score: 15 - Psych Psych: Normal mood, Normal affect Results - Vitals Vitals: Vital Signs - 24 hr 12/22/22 13:50 Temperature 36.8 C Heart Rate 83 Respiratory 18 Rate Blood Pressure 175/110 H O2 Saturation 100 Oxygen O2 Source Room air - EKG (time done) 1404 EKG releavant findings:: EKG personally interpreted by author of this note. Relevant findings are: Rate: Rate (enter#) (72) Rhythm: NSR [place]: Normal Intervals: Normal MD QRS: LVH Ischemia: Non specific changes. No: ST elevation c/w ischemia, ST depression - Labs Labs: Laboratory Tests 12/22/22 12/22/22 12/22/22 13:58 14:13 14:13 WBC 9.1 RBC 5.32 Hgb 15.1 Hct 47.0 MCV 88.3 MCH 28.4 MCHC 32.1 RDW 14.0 Plt Count 233 MPV 9.5 Neut # (Auto) 7.4 H Lymph # (Auto) 0.9 L [place] # (Auto) 0.7 Eos # (Auto) 0.1 Baso # (Auto) 0.0 Absolute Nucleated RBC 0.00 Nucleated RBC % 0.0 Sodium 138 Potassium 3.9 Chloride 106 Carbon Dioxide 24 Anion Gap 8.0 BUN 25 H Creatinine 1.2 Estimated GFR (MDRD) 60 L Glucose 116 H Calcium 9.5 Magnesium 1.8 Total Bilirubin 0.6 AST 15 ALT 14 Alkaline Phosphatase 97 Total Protein 6.7 Albumin 4.3 Globulin 2.4 Albumin/Globulin Ratio 1.8 Urine Color YELLOW Urine Clarity CLEAR Urine pH 6.0 Ur Specific [place] 1.010 Urine Protein NEGATIVE Urine Glucose (UA) NEGATIVE Urine Ketones NEGATIVE Urine Occult Blood TRACE-LYSE Urine Nitrite NEGATIVE Urine Bilirubin NEGATIVE Urine Urobilinogen 0.2 (NORMAL) Ur Leukocyte Esterase NEGATIVE Ur Microscopic Review NOT INDICATED Urine Culture Comments NOT INDICATED PD Medical Decision Making - ED course ED course: 67-year-old with what sounds like orthostatic lightheadedness after using an edible the other night not drinking enough fluids and this was persistent today after working heavily out in the yard yesterday and not drinking any water. He is hypertensive here but otherwise has a normal exam. Normal gait. Departure - Departure Disposition: 01 Home, Self Care Clinical Impression: Dizziness, Dehydration Hypertension Qualifiers: Hypertension type: primary hypertension Qualified Code(s): I10 - Essential (primary) hypertension Condition: Good Instructions: ED Dehydration, ED Dizziness [facility] Prescriptions: Losartan [Cozaar] 50 mg PO DAILY #30 tablet Comments: Drink plenty of fluids and decrease caffeine use. I am starting a low-dose of a blood pressure medication and your primary care nurse practitioner can do a blood pressure check when she sees you for your routine visit next week. Return for new or worsening symptoms.
[2022-12-22 14:08] LABS: BILIRUBIN,URINE NEGATIVE (NEGATIVE); GLUCOSE, URINE (UA) NEGATIVE (NEGATIVE); KETONES,URINE (UA) NEGATIVE (NEGATIVE); LEUKOCYTE ESTERASE, URINE NEGATIVE (NEGATIVE); NITRITE,URINE NEGATIVE (NEGATIVE); OCCULT BLOOD,URINE TRACE-LYSE (NEGATIVE); PROTEIN,URINE NEGATIVE (NEGATIVE); UROBILINOGEN,URINE 0.2 (NORMAL) E.U./dL (NORMAL)
[2022-12-22 14:09] LABS: CLARITY,URINE CLEAR (CLEAR)
[2022-12-22 14:20] LABS: BASOPHILS % (AUTO) 0.4 %; EOSINOPHILS # (AUTO) 0.1 10^3/uL (0.0-0.7); EOSINOPHILS % (AUTO) 0.7 %; HGB - HEMOGLOBIN 15.1 g/dL (14.0-18.0); LYMPHOCYTES # (AUTO) 0.9 10^3/uL (1.5-3.5); LYMPHOCYTES % (AUTO) 9.8 %; MEAN CORPUSCULAR HEMOGLOBIN 28.4 pg (27.0-31.0); MEAN CORPUSCULAR HGB CONC 32.1 g/dL (32.0-36.0); MEAN CORPUSCULAR VOLUME 88.3 fL (80.0-94.0); MEAN PLATELET VOLUME 9.5 fL (7.4-11.4); MONOCYTES # (AUTO) 0.7 10^3/uL (0.0-1.0); MONOCYTES % (AUTO) 7.5 %; NEUTROPHILS # (AUTO) 7.4 10^3/uL (1.5-6.6); NEUTROPHILS % (AUTO) 81.3 %; PLT - PLATELET COUNT 233 10^3/uL (130-450); RED BLOOD COUNT 5.32 10^6/uL (4.70-6.10); WHITE BLOOD COUNT 9.1 x10^3/uL (4.8-10.8)
[2022-12-22 14:42] LABS: ALBUMIN 4.3 g/dL (3.2-5.5); ALBUMIN/GLOBULIN RATIO 1.8 (1.0-2.2); BILIRUBIN,TOTAL 0.6 mg/dL (0.2-1.0); CALCIUM 9.5 mg/dL (8.5-10.3); CREATININE 1.2 mg/dL (0.6-1.3); MAGNESIUM 1.8 mg/dL (1.7-2.3); POTASSIUM 3.9 mmol/L (3.5-4.5); TOTAL PROTEIN 6.7 g/dL (6.4-8.9)
== END 2022-12-22 15:25 | disposition home or self-care (01) ==
LOC: EDBD → EDUNIT# → ED 13:41
DX: E86.0 Dehydration (principal); I10 Essential (primary) hypertension
CPT/HCPCS: 36415; 80053; 81001; 81003; 83735; 85025; 87086; 93005; 99284

== ENCOUNTER 2023-01-18 10:45 | Outpatient (CLI) | payer MEDICARE, MEDICAID ==
[2023-01-18 14:45] LABS: ALBUMIN 4.4 g/dL (3.2-5.5); ALBUMIN/GLOBULIN RATIO 1.6 (1.0-2.2); ALKALINE PHOSPHATASE 101 IU/L (42-121); ALT ALANINE AMINOTRANSFERASE 19 IU/L (10-60); AST ASPARTATE AMINOTRANSFERASE 18 IU/L (10-42); BILIRUBIN,TOTAL 0.6 mg/dL (0.2-1.0); BUN - BLOOD UREA NITROGEN 21 mg/dL (6-20); CALCIUM 9.9 mg/dL (8.5-10.3); CARBON DIOXIDE - CO2 28 mmol/L (21-32); CHLORIDE 104 mmol/L (101-111); CHOL/HDL RATIO 3.9 (<5.0); CHOLESTEROL 185 mg/dL; CREATININE 1.1 mg/dL (0.6-1.3); GFR - MDRD 67 (>89); GLUCOSE 132 mg/dL (74-104); HDL CHOLESTEROL 48 mg/dL; LDL CHOLESTEROL,CALCULATED 110 mg/dL; LDL/HDL RATIO 2.3 (<3.6); POTASSIUM 4.4 mmol/L (3.5-4.5); SODIUM 137 mmol/L (135-145); TOTAL PROTEIN 7.1 g/dL (6.4-8.9); TRIGLYCERIDES 136 mg/dL (48-352); VLDL CHOLESTEROL 27 mg/dL
[2023-01-18 14:52] LABS: BASOPHILS % (AUTO) 0.6 %; EOSINOPHILS # (AUTO) 0.1 10^3/uL (0.0-0.7); EOSINOPHILS % (AUTO) 1.9 %; HCT - HEMATOCRIT 47.7 % (42.0-52.0); HGB - HEMOGLOBIN 15.1 g/dL (14.0-18.0); LYMPHOCYTES # (AUTO) 1.4 10^3/uL (1.5-3.5); LYMPHOCYTES % (AUTO) 19.8 %; MEAN CORPUSCULAR HEMOGLOBIN 28.7 pg (27.0-31.0); MEAN CORPUSCULAR HGB CONC 31.7 g/dL (32.0-36.0); MEAN CORPUSCULAR VOLUME 90.7 fL (80.0-94.0); MEAN PLATELET VOLUME 10.2 fL (7.4-11.4); MONOCYTES # (AUTO) 0.6 10^3/uL (0.0-1.0); MONOCYTES % (AUTO) 8.6 %; NEUTROPHILS # (AUTO) 4.7 10^3/uL (1.5-6.6); NEUTROPHILS % (AUTO) 68.5 %; PLT - PLATELET COUNT 235 10^3/uL (130-450); RED BLOOD COUNT 5.26 10^6/uL (4.70-6.10); RED CELL DISTRIBUTION WIDTH 13.9 % (12.0-15.0); WHITE BLOOD COUNT 6.9 x10^3/uL (4.8-10.8)
[2023-01-18 15:01] LABS: CREATININE,URINE 91.1 mg/dL; MICROALBUM/CREATININE RATIO,UR 38.4 ug/mg (<30.0); MICROALBUMIN,URINE 3.5 mg/dL
[2023-01-18 15:20] LABS: ESTIMATED AVERAGE GLUCOSE 140 mg/dL (70-100); HEMOGLOBIN A1c% 6.5 % (4.27-6.07)
== END 2023-01-18 10:46 | disposition home or self-care (01) ==
LOC: LAB.S 10:45
PROVIDERS: ATTEND Registered Nurse
DX: E11.9 Type 2 diabetes mellitus without complications (principal); Z13.220 Encounter for screening for lipoid disorders; Z13.228 Encounter for screening for other metabolic disorders; Z13.0 Encounter for screening for diseases of the blood and blood-forming organs and certain disorders involving the immune mechanism
CPT/HCPCS: 36415; 80053; 80061; 82043; 82570; 83036; 83721; 85025

== ENCOUNTER 2024-01-07 11:01 | Outpatient (CLI) | payer MEDICARE, MEDICAID ==
[2024-01-07 14:45] LABS: BASOPHILS % (AUTO) 0.5 %; EOSINOPHILS # (AUTO) 0.1 10^3/uL (0.0-0.7); EOSINOPHILS % (AUTO) 1.3 %; HCT - HEMATOCRIT 49.5 % (42.0-52.0); HGB - HEMOGLOBIN 15.9 g/dL (14.0-18.0); LYMPHOCYTES # (AUTO) 1.4 10^3/uL (1.5-3.5); LYMPHOCYTES % (AUTO) 21.9 %; MEAN CORPUSCULAR HGB CONC 32.1 g/dL (32.0-36.0); MEAN CORPUSCULAR VOLUME 90.3 fL (80.0-94.0); MEAN PLATELET VOLUME 10.2 fL (7.4-11.4); MONOCYTES # (AUTO) 0.4 10^3/uL (0.0-1.0); MONOCYTES % (AUTO) 6.4 %; NEUTROPHILS # (AUTO) 4.4 10^3/uL (1.5-6.6); NEUTROPHILS % (AUTO) 69.3 %; PLT - PLATELET COUNT 208 10^3/uL (130-450); RED BLOOD COUNT 5.48 10^6/uL (4.70-6.10); RED CELL DISTRIBUTION WIDTH 13.2 % (12.0-15.0); WHITE BLOOD COUNT 6.4 x10^3/uL (4.8-10.8)
[2024-01-07 15:19] LABS: ALBUMIN 4.2 g/dL (3.2-5.5); ALBUMIN/GLOBULIN RATIO 1.7 (1.0-2.2); ALKALINE PHOSPHATASE 73 IU/L (42-121); ALT ALANINE AMINOTRANSFERASE 18 IU/L (10-60); AST ASPARTATE AMINOTRANSFERASE 15 IU/L (10-42); BILIRUBIN,TOTAL 0.5 mg/dL (0.2-1.0); BUN - BLOOD UREA NITROGEN 21 mg/dL (6-20); CALCIUM 9.4 mg/dL (8.5-10.3); CARBON DIOXIDE - CO2 27 mmol/L (21-32); CHLORIDE 106 mmol/L (101-111); CHOL/HDL RATIO 4.3 (<5.0); CHOLESTEROL 215 mg/dL; GFR - MDRD 74 (>89); GLUCOSE 137 mg/dL (74-104); HDL CHOLESTEROL 50 mg/dL; LDL CHOLESTEROL,CALCULATED 139 mg/dL; LDL/HDL RATIO 2.8 (<3.6); POTASSIUM 4.3 mmol/L (3.5-4.5); SODIUM 139 mmol/L (135-145); TOTAL PROTEIN 6.7 g/dL (6.4-8.9); TRIGLYCERIDES 132 mg/dL; VLDL CHOLESTEROL 26 mg/dL
[2024-01-07 15:21] LABS: CREATININE,URINE 101.2 mg/dL; MICROALBUM/CREATININE RATIO,UR 34.6 ug/mg (<30.0); MICROALBUMIN,URINE 3.5 mg/dL
[2024-01-07 15:24] LABS: THYROID STIMULATING HORMONE 1.55 uIU/mL (0.34-5.60)
[2024-01-07 19:47] LABS: ESTIMATED AVERAGE GLUCOSE 137 mg/dL (70-100); HEMOGLOBIN A1c% 6.4 % (4.27-6.07)
== END 2024-01-07 11:02 | disposition home or self-care (01) ==
LOC: LAB.S 11:01
PROVIDERS: ATTEND Registered Nurse
DX: E11.9 Type 2 diabetes mellitus without complications (principal); Z13.220 Encounter for screening for lipoid disorders; Z13.228 Encounter for screening for other metabolic disorders; Z13.29 Encounter for screening for other suspected endocrine disorder; Z13.0 Encounter for screening for diseases of the blood and blood-forming organs and certain disorders involving the immune mechanism
CPT/HCPCS: 36415; 80053; 80061; 82043; 82570; 83036; 83721; 84443; 85025

== ENCOUNTER 2024-02-09 10:50 | Emergency (ER) | payer MEDICARE, MEDICAID ==
--- NOTE | 2024-02-09 11:07 | ED Physician Documentation ---
PD HPI BACK PAIN - Stated complaint Stated Complaint: HIGH HR, SOA,BACK PX,UNABLE TO EAT - Chief complaint Chief Complaint: General - History obtained from History obtained from: Patient - History of Present Illness Timing - onset: How many days ago (2-3) Timing - duration: Days Timing - details: Gradual onset, Still present Location: Mid, Lower Quality: Pain, Aching. No: Sharp, Tearing Associated symptoms: No: Fever, Weakness, Numbness, Incontinent of urine Worsened by: Movement Contributing factors: Lifting. No: Trauma Similar symptoms before: Diagnosis (intermittent back pain since fall/injury and back fx 2 years ago.) Review of Systems Constitutional: reports: Myalgias, Fatigue. denies: Fever Nose: reports: Rhinorrhea / runny nose, Congestion Throat: denies: Sore throat Respiratory: denies: Cough GI: reports: Nausea. denies: Abdominal Pain, Vomiting, Diarrhea Skin: denies: Rash, Lesions Musculoskeletal: reports: Back pain. denies: Neck pain Neurologic: denies: Focal weakness, Numbness PD PAST MEDICAL HISTORY - Past Medical History Cardiovascular: Hypertension, Deep vein thrombosis Respiratory: Sleep apnea Neuro: Seizure disorder Endocrine/Autoimmune: Type 2 diabetes GI: None : Kidney stones, Other HEENT: None Psych: Claustrophobia Musculoskeletal: Other Derm: Other - Past Surgical History Past Surgical History: Yes Ortho: Other - Present Medications Home Medications: Ambulatory Orders Medication Instructions Recorded Confirmed Metformin HCl [Metformin ER 1,000 mg PO BID #120 tab 05/12/22 01/02/23 Gastric] Levetiracetam [Keppra] 750 mg PO BID 11/24/22 01/02/23 Losartan [Cozaar] 50 mg PO DAILY #30 tablet 12/22/22 01/02/23 Acetaminophen [Tylenol Arthritis] 650 mg PO Q4H PRN 01/02/23 01/02/23 Cholecalciferol [Vitamin D3] 25 mcg PO DAILY 01/02/23 01/02/23 Multivitamin 1 each PO DAILY 01/02/23 01/02/23 Zinc Gluconate [Zinc] 30 mg PO DAILY 01/02/23 01/02/23 HYDROcod/ACETAM 5/325 [[place] 5/325] 1 ea PO Q6H PRN #18 tablet 02/09/24 Meloxicam [Mobic] 7.5 mg PO BID 10 Days #20 tablet 02/09/24 methocarbamoL [Robaxin] 500 mg PO Q6H PRN #30 tablet 02/09/24 - Allergies Allergies/Adverse Reactions: Allergies Allergy/AdvReac Type Severity Reaction Status Date / Time medazepam AdvReac Hallucinati Verified 02/09/24 10:54 ons - Social History Does the pt smoke?: No Smoking Status: Never smoker Does the pt drink ETOH?: No - Immunizations Immunizations are current?: Yes - POLST POLST Status: Full Code PD ED PE NORMAL - Vitals Vital signs reviewed: Yes - General General: Alert and oriented X 3, Well developed/nourished - HEENT HEENT: Pharynx benign - Neck Neck: Supple, no meningeal sign, No adenopathy - Cardiac Cardiac: No murmur. No: RRR (initially mild tachycardia, improeved with IV fluids.) - Respiratory Respiratory: No respiratory distress, Clear bilaterally - Abdomen Abdomen: Normal bowel sounds, Soft, Non tender, Non distended - Derm Derm: Normal color, Warm and dry, No rash - Extremities Extremities: No tenderness to palpate, No edema, No calf tenderness / cord - Neuro Neuro: Alert and oriented X 3, No motor deficit, No sensory deficit Results - Vitals Vitals: Vital Signs - 24 hr 02/09/24 02/09/24 02/09/24 10:54 12:07 13:00 Temperature 36.8 C Heart Rate 116 H 96 83 Respiratory 26 H 12 15 Rate Blood Pressure 90/68 123/79 124/74 O2 Saturation 99 95 95 02/09/24 14:38 Temperature 36.8 C Heart Rate 87 Respiratory 18 Rate Blood Pressure 114/67 O2 Saturation 95 Oxygen O2 Source Room air - EKG (time done) 11:19 EKG releavant findings:: EKG personally interpreted by author of this note. Relevant findings are: Rate: Rate (enter#) (106) Rhythm: Sinus tachycardia [place]: Normal Intervals: Normal [place] QRS: Normal Ischemia: Normal ST segments. No: ST elevation c/w ischemia, ST depression - Labs Labs: Laboratory Tests 02/09/24 02/09/24 02/09/24 11:10 11:10 11:38 WBC 8.5 RBC 5.78 Hgb 16.8 Hct 51.4 MCV 88.9 MCH 29.1 MCHC 32.7 RDW 13.6 Plt Count 163 MPV 9.4 Neut # (Auto) 7.1 H Lymph # (Auto) 0.6 L Hughes # (Auto) 0.8 Eos # (Auto) 0.0 Baso # (Auto) 0.0 Absolute Nucleated RBC 0.00 Nucleated RBC % 0.0 Sodium 133 L Potassium 3.7 Chloride 99 L Carbon Dioxide 24 Anion Gap 10.0 BUN 18 Creatinine 1.4 H Estimated GFR (MDRD) 50 L Glucose 157 H Lactic Acid Calcium 9.1 Magnesium 1.9 Total Bilirubin 0.7 AST 18 ALT 18 Alkaline Phosphatase 75 Troponin I High Sens 4.9 B-Natriuretic Peptide Total Protein 7.3 Albumin 4.4 Globulin 2.9 Albumin/Globulin Ratio 1.5 Lipase 36 Urine Color Urine Clarity Urine pH Ur Specific [place] Urine Protein Urine Glucose (UA) Urine Ketones Urine Occult Blood Urine Nitrite Urine Bilirubin Urine Urobilinogen Ur Leukocyte Esterase Urine RBC Urine WBC Ur Squamous Epith Cells Urine Bacteria Urine Mucus Ur Microscopic Review Urine Culture Comments Nasal Adenovirus (PCR) Nasal B. parapertussis DNA (PCR) Nasal Coronavir 229E PCR Nasal Coronavir HKU1 PCR Nasal Coronavir NL63 PCR Nasal Coronavir OC43 PCR Nasal Enterovir/Rhinovir PCR Nasal Influenza B PCR Nasal Influenza A PCR Nasal Parainfluen 1 PCR Nasal Parainfluen 2 PCR Nasal Parainfluen 3 PCR Nasal Parainfluen 4 PCR Nasal RSV (PCR) Nasal B.pertussis DNA PCR Nasal C.pneumoniae (PCR) Anselmo Human Metapneumo PCR Nasal M.pneumoniae (PCR) Nasal SARS-CoV-2 (PCR) 02/09/24 02/09/24 02/09/24 11:38 11:38 11:43 WBC RBC Hgb Hct MCV MCH MCHC RDW Plt Count MPV Neut # (Auto) Lymph # (Auto) Hughes # (Auto) Eos # (Auto) Baso # (Auto) Absolute Nucleated RBC Nucleated RBC % Sodium Potassium Chloride Carbon Dioxide Anion Gap BUN Creatinine Estimated GFR (MDRD) Glucose Lactic Acid 0.9 Calcium Magnesium Total Bilirubin AST ALT Alkaline Phosphatase Troponin I High Sens B-Natriuretic Peptide 15 Total Protein Albumin Globulin Albumin/Globulin Ratio Lipase Urine Color DARK YELLOW Urine Clarity CLEAR Urine pH 6.0 Ur Specific [place] >=1.030 H Urine Protein 30 H Urine Glucose (UA) NEGATIVE Urine Ketones 15 H Urine Occult Blood NEGATIVE Urine Nitrite NEGATIVE Urine Bilirubin SMALL H Urine Urobilinogen 0.2 (NORMAL) Ur Leukocyte Esterase NEGATIVE Urine RBC 0-5 Urine WBC 0-3 Ur Squamous Epith Cells NONE SEEN Urine Bacteria Rare Urine Mucus Moderate Strands Ur Microscopic Review INDICATED Urine Culture Comments NOT INDICATED Nasal Adenovirus (PCR) Nasal B. parapertussis DNA (PCR) Nasal Coronavir 229E PCR Nasal Coronavir HKU1 PCR Nasal Coronavir NL63 PCR Nasal Coronavir OC43 PCR Nasal Enterovir/Rhinovir PCR Nasal Influenza B PCR Nasal Influenza A PCR Nasal Parainfluen 1 PCR Nasal Parainfluen 2 PCR Nasal Parainfluen 3 PCR Nasal Parainfluen 4 PCR Nasal RSV (PCR) Nasal B.pertussis DNA PCR Nasal C.pneumoniae (PCR) Anselmo Human Metapneumo PCR Nasal M.pneumoniae (PCR) Nasal SARS-CoV-2 (PCR) 02/09/24 12:05 WBC RBC Hgb Hct MCV MCH MCHC RDW Plt Count MPV Neut # (Auto) Lymph # (Auto) Hughes # (Auto) Eos # (Auto) Baso # (Auto) Absolute Nucleated RBC Nucleated RBC % Sodium Potassium Chloride Carbon Dioxide Anion Gap BUN Creatinine Estimated GFR (MDRD) Glucose Lactic Acid Calcium Magnesium Total Bilirubin AST ALT Alkaline Phosphatase Troponin I High Sens B-Natriuretic Peptide Total Protein Albumin Globulin Albumin/Globulin Ratio Lipase Urine Color Urine Clarity Urine pH Ur Specific [place] Urine Protein Urine Glucose (UA) Urine Ketones Urine Occult Blood Urine Nitrite Urine Bilirubin Urine Urobilinogen Ur Leukocyte Esterase Urine RBC Urine WBC Ur Squamous Epith Cells Urine Bacteria Urine Mucus Ur Microscopic Review Urine Culture Comments Nasal Adenovirus (PCR) NOT DETECTED Nasal B. parapertussis DNA (PCR) NOT DETECTED Nasal Coronavir 229E PCR NOT DETECTED Nasal Coronavir HKU1 PCR NOT DETECTED Nasal Coronavir NL63 PCR NOT DETECTED Nasal Coronavir OC43 PCR NOT DETECTED Nasal Enterovir/Rhinovir PCR NOT DETECTED Nasal Influenza B PCR NOT DETECTED Nasal Influenza A PCR NOT DETECTED Nasal Parainfluen 1 PCR NOT DETECTED Nasal Parainfluen 2 PCR NOT DETECTED Nasal Parainfluen 3 PCR NOT DETECTED Nasal Parainfluen 4 PCR NOT DETECTED Nasal RSV (PCR) NOT DETECTED Nasal B.pertussis DNA PCR NOT DETECTED Nasal C.pneumoniae (PCR) NOT DETECTED [place] Human Metapneumo PCR NOT DETECTED Nasal M.pneumoniae (PCR) NOT DETECTED Nasal SARS-CoV-2 (PCR) NOT DETECTED - Rads (name of study) abd/pelvic CT angio Relevant Findings:: Prelim report reviewed (no vascular process. Diverticula wihtout diverituclitis, renal stones without ureteral stones. ), EMP independent interpretation of test Chest xray Relevant Findings:: Prelim report reviewed (no infiltrates.), EMP independent interpretation of test PD Medical Decision Making - ED course Complexity details: reviewed results, considered differential (2-3 days of fatigue, congestion, some nausea and heartburn. Noting pain in upper lumbar area of back without nubness/weakness of legs.), d/w patient ED course: Prior history of back fractures and muscle hematomas, kidney rupture from high fall about 2 year ago. Devleoped some ?psoas abscesses by his description and had IR drainage and months of abx through PICC line. Finally cleared fully, with respolution about a year ago. COntinues with back pain intermittently. He states was doing some lifting and house projects few days ago. No new injury per se. He initially thought the back pain due to the use of back/strain. However is also feeling fatigue, congestion, weakness. Went to walk in clinic and noted tachycardic and lower BP. Referred to ER. Pt denies histry of aneurysms, but does have HTN and had had prior intra-abd abscesses, so consider if cause some weakness of vascular duarte. I would be concerned about AAA, dissection, or renal infarct as more severe causes. Has viral type illness symptoms but can eval for sepsis/concerning infections. No fevers per se nor leg weakness/numbness, incontinence. Lowers my cocnern for spinal process. No pain with back bending/etc. He was given IV fluids and improved BP and HR. He states did have much less appetite the past 3 days, and intake was decreased. Basic labs show normal WBC and lactate. UA without infection but does have spec grav >30 (concentrated) and his Creatinine is 1.4, up from baseline 1.4, so c/w volume depletion. CT without acute process diverticula without diverticulitis, renal stones without ureteral stones). Pain is much better with Toradol and Dilaudid single doses for back, and reflux symptoms improved with [place], viscous lido. Departure - Departure Disposition: 01 Home, Self Care Clinical Impression: Back pain, Viral syndrome, Tachycardia Condition: Stable Record reviewed to determine appropriate education?: Yes Instructions: ED Neck Back Pain General Follow-Up: Rosario Marrero ARNP [Primary Care Provider] - Prescriptions: Meloxicam [Mobic] 7.5 mg PO BID 10 Days #20 tablet HYDROcod/ACETAM 5/325 [[place] 5/325] 1 ea PO Q6H PRN #18 tablet PRN Reason: Pain methocarbamoL [Robaxin] 500 mg PO Q6H PRN #30 tablet PRN Reason: Spasms Comments: Your symptoms generally with some chills, weakness, congestion sound viral like. We did do a nasal swab test which was negative for the major viruses such as COVID, flu, rhinovirus etc. but is not inclusive of all viral type illnesses. We did look for other reasons for infection in your urine does not show any signs of infection, chest x-ray is clear. CT of the abdomen does not show any obvious organ or localized infections. Of note your CT scan shows some stones in the kidney but none of them are showing signs of passing or blockage. He has some diverticula without any diverticulitis. No signs of obvious aortic abnormality such as aneurysm dissection or leakage (this was of concern given your lower blood pressure initially at the clinic). Other blood tests including the white count and a test called lactate are both normal so no obvious indicators of impending sepsis. At this point no obvious bad infections or other conditions. I presume your back pain is muscular back pain and can be treated with combination of anti- inflammatories plus muscle relaxants and pain medicine if needed. See how you feel otherwise over the next few days if other new symptoms develop. I sent your prescription to your preferred pharmacy. My narcotic instructionsI am prescribing a short course of narcotic pain medication for you. These are potentially dangerous and addictive medications that should be used carefully. These medications may constipate you. Take an [id number] stool softener such as docusate twice daily with plenty of water while taking these medications. If you go 24 hours without a bowel movement, take [id number] MiraLAX, per package instructions. Do not drink or drive while taking these medications. If you received narcotic or sedating medications while in the emergency department do not drive for 24 hours. Store this medication in a safe, secure place and out of reach of children. It is a violation of federal law to give or sell this medication to another person or to use in a manner other than prescribed. The ED will not refill narcotic prescriptions, including prescriptions lost or stolen. You can dispose of unwanted medications at the [facility]'s office or at several pharmacies such as [facility]. Forms: PCP List Discharge Date/Time: 02/09/24 14:38
[2024-02-09 11:16] LABS: BASOPHILS % (AUTO) 0.5 %; EOSINOPHILS % (AUTO) 0.1 %; HCT - HEMATOCRIT 51.4 % (42.0-52.0); HGB - HEMOGLOBIN 16.8 g/dL (14.0-18.0); LYMPHOCYTES # (AUTO) 0.6 10^3/uL (1.5-3.5); MEAN CORPUSCULAR HEMOGLOBIN 29.1 pg (27.0-31.0); MEAN CORPUSCULAR HGB CONC 32.7 g/dL (32.0-36.0); MEAN CORPUSCULAR VOLUME 88.9 fL (80.0-94.0); MEAN PLATELET VOLUME 9.4 fL (7.4-11.4); MONOCYTES # (AUTO) 0.8 10^3/uL (0.0-1.0); MONOCYTES % (AUTO) 9.1 %; NEUTROPHILS # (AUTO) 7.1 10^3/uL (1.5-6.6); NEUTROPHILS % (AUTO) 82.9 %; PLT - PLATELET COUNT 163 10^3/uL (130-450); RED BLOOD COUNT 5.78 10^6/uL (4.70-6.10); RED CELL DISTRIBUTION WIDTH 13.6 % (12.0-15.0); WHITE BLOOD COUNT 8.5 x10^3/uL (4.8-10.8)
[2024-02-09 11:30] LABS: ALBUMIN 4.4 g/dL (3.2-5.5); ALBUMIN/GLOBULIN RATIO 1.5 (1.0-2.2); BILIRUBIN,TOTAL 0.7 mg/dL (0.2-1.0); CALCIUM 9.1 mg/dL (8.5-10.3); CREATININE 1.4 mg/dL (0.6-1.3); POTASSIUM 3.7 mmol/L (3.5-4.5); TOTAL PROTEIN 7.3 g/dL (6.4-8.9)
[2024-02-09 11:36] LABS: TROPONIN I HIGH SENSITIVITY 4.9 ng/L (2.3-19.7)
[2024-02-09] MEDS ORDERED: iohexoL-300 100 ML VIAL ONE (11:37)
[2024-02-09 11:54] LABS: BILIRUBIN,URINE SMALL (NEGATIVE); GLUCOSE, URINE (UA) NEGATIVE (NEGATIVE); KETONES,URINE (UA) 15 mg/dL (NEGATIVE); LEUKOCYTE ESTERASE, URINE NEGATIVE (NEGATIVE); NITRITE,URINE NEGATIVE (NEGATIVE); OCCULT BLOOD,URINE NEGATIVE (NEGATIVE); PROTEIN,URINE 30 mg/dL (NEGATIVE); UROBILINOGEN,URINE 0.2 (NORMAL) E.U./dL (NORMAL)
[2024-02-09 11:55] LABS: CLARITY,URINE CLEAR (CLEAR)
[2024-02-09] MEDS: LIDOCAINE VISCOUS 2% 15 ML UDC MM STA (11:58)
[2024-02-09] MEDS: MAG HYDROX/AL HYDROX/SIMETH 30 ML UDC PO STA (11:59)
[2024-02-09] MEDS: SODIUM CHLORIDE 0.9% 1,000 ML IV STA (11:59)
--- NOTE | 2024-02-09 11:59 | XRAY Report ---
PROCEDURE: Chest 1V INDICATIONS: Chest pain TECHNIQUE: One view of the chest was acquired. COMPARISON: None. FINDINGS: Surgical changes and devices: None. Lungs and pleura: No pleural effusions or pneumothorax. Lungs are clear. Mediastinum: Mediastinal contours appear normal. Heart size is normal. Bones and chest wall: No suspicious bony lesions. Overlying soft tissues appear unremarkable. IMPRESSION: No acute cardiopulmonary process. Reviewed by: Noel Hernandez MD on 02/09/2024 10:57 AM GARO Approved by: Noel Hernandez MD on 02/09/2024 10:57 AM GARO Station ID: [id number]
[2024-02-09 12:00] LABS: BACTERIA,URINE Rare /HPF (None Seen); MUCUS,URINE Moderate Strands; RBC,URINE 0-5 /HPF (0-5); SQUAMOUS EPITHELIAL CELL,UR NONE SEEN (<= Few); WBC,URINE 0-3 /HPF (0-3)
[2024-02-09] MEDS: KETOROLAC 15 MG/ML VIAL IVP STA (12:00)
[2024-02-09] MEDS: HYDROmorphone 0.5 MG/0.5 ML SYRINGE IVP STA (12:01)
[2024-02-09 12:11] VITALS: O2SAT 95
--- NOTE | 2024-02-09 12:50 | CT Report ---
PROCEDURE: Angio Abdomen/Pelvis INDICATIONS: back pain and low BP; h/o HTN CONTRAST: TECHNIQUE: After the administration of intravenous contrast, 2.5 mm thick sections acquired from the diaphragm t o the symphysis. 10 mm maximum-intensity projection (MIP) reformats were then acquired. For radiati on dose reduction, the following was used: automated exposure control, adjustment of mA and/or kV ac cording to patient size. COMPARISON: 07/14/2022 FINDINGS: Image quality: Diagnostic. VESSELS: Aorta: Normal size of the abdominal aorta and lower thoracic aorta. No significant atherosclerotic v ascular calcifications. No evidence for dissection. No periaortic inflammatory changes. No periaortic hematoma. Mesenteric arteries: Celiac trunk, superior and inferior mesenteric arteries appear patent. Bilater al renal arteries are patent. Pelvic arteries: The visualized pelvic arteries appear widely patent. No evidence for dissection or a neurysmal dilatation. CHEST: Lung bases and heart: Patchy bibasilar atelectasis. Small hiatal hernia. Heart size appears normal. ABDOMEN: Liver: Hepatic steatosis. Gallbladder and biliary tree: No radiopaque stones or wall thickening. No biliary dilation. Spleen: No splenomegaly. Pancreas: No pancreatic ductal dilation. Adrenals: No adrenal nodule. Kidneys and ureters: Punctate bilateral nonobstructing renal stones. Mild bilateral perinephric stran ding. Bilateral renal hypodensities likely representing cysts. Moderate cortical scarring of the left kidney. Mild persistent prominence of the right renal pelvis. Bilateral ureters are normal in course and caliber without ureteral stones. No urinary bladder stones seen. Bowel and peritoneum: No bowel distension. No pathologic free fluid. Diverticulosis without evidence of diverticulitis. Normal appendix. Lymph nodes: No central or retroperitoneal adenopathy. PELVIS Reproductive organs: Unremarkable. Bladder: No abnormal wall thickening, accounting for underdistension. Pelvic lymph nodes: No pelvic adenopathy by size criteria. Bones: No aggressive osseous abnormality. Status post ORIF of the right femoral neck. Other: Small fat-containing umbilical hernia without acute inflammation. IMPRESSION: CT angiogram of the abdomen and pelvis without evidence for aortic aneurysm or acute aortic syndrome. Bilateral nonobstructing punctate renal stones with persistent perinephric stranding. Although findin gs may be chronic in etiology, recommend clinical/laboratory correlation for possible infectious urop athy. Hepatic steatosis. Small hiatal hernia. Colonic diverticulosis without acute diverticulitis. Normal appendix. Mild gallbladder distention without evidence for acute inflammatory changes. Findings may be related to fasting state. Reviewed by: Noel Hernandez MD on 02/09/2024 11:48 AM GARO Approved by: Noel Hernandez MD on 02/09/2024 11:48 AM LAMANUEL Station ID: [id number]
[2024-02-09 13:02] LABS: B. PARAPERTUSSIS- RESP PCR PAN NOT DETECTED; B. PERTUSSIS- RESP PCR PANEL NOT DETECTED; C. PNEUMONIAE- RESP PCR PANEL NOT DETECTED; CORONAVIRUS 229E-RESP PCR NOT DETECTED; CORONAVIRUS HKU1-RESP PCR NOT DETECTED; CORONAVIRUS NL63-RESP PCR NOT DETECTED; CORONAVIRUS OC43-RESP PCR NOT DETECTED; HUMAN METAPNEUMOVIRUS NOT DETECTED; INFLUENZA A- RESP PCR PANEL NOT DETECTED; INFLUENZA B - RESP PCR PANEL NOT DETECTED; M. PNEUMONIAE- RESP PCR PANEL NOT DETECTED; PARAINFLUENZA VIRUS 1 NOT DETECTED; PARAINFLUENZA VIRUS 2 NOT DETECTED; PARAINFLUENZA VIRUS 3 NOT DETECTED; PARAINFLUENZA VIRUS 4 NOT DETECTED; RHINOVIRUS/ENTEROVIRUS NOT DETECTED; RSV- RESP PCR PANEL NOT DETECTED; SARS-CoV-2 -RESP PCR PANEL NOT DETECTED
[2024-02-09 14:42] VITALS: BP 114/67
[2024-02-09] MEDS: iohexoL-300 100 ML VIAL IVP ONE (16:08)
== END 2024-02-09 14:38 | disposition home or self-care (01) ==
LOC: ED 10:50
DX: B34.9 Viral infection, unspecified (principal); R00.0 Tachycardia, unspecified; M54.50 Low back pain, unspecified; I10 Essential (primary) hypertension; E11.9 Type 2 diabetes mellitus without complications; Z79.84 Long term (current) use of oral hypoglycemic drugs; Z79.899 Other long term (current) drug therapy
CPT/HCPCS: 36415; 71045; 74174; 80053; 81001; 83605; 83690; 83735; 83880; 84484; 85025; 87040; 87633; 93005; 96374; 96375; 99284; A9270; J1170; Q9967; 81003; 87086